=== PATIENT | male | born 1945 | race Caucasian/White ===

== ENCOUNTER 2019-06-15 19:52 | Inpatient (IN) | payer MEDICARE, OTHER, SELFPAY ==
[2019-06-15] VITALS (7 sets, daily range): BP systolic 122–136; BP diastolic 56–81; PULSE 50–63; RESP 12–17; TEMP 36.6; O2SAT 95–100
--- NOTE | ~2019-06-15 | XR_ITS ---
EXAMINATION: XR chest 1V portable DATE: 06/15/2019 20:26 INDICATION: Slurred speech. Cough. TECHNIQUE: A single frontal view of the chest was obtained. COMPARISON: Chest 2 views 08/19/2004, CT abdomen and pelvis 12/22/2009 FINDINGS: There is mild scarring at the lung apices. There are interstitial opacities in the lower tuyet ng zones. No pleural effusion or pneumothorax. The heart size is normal. Median sternotomy wires and mediastinal surgical clips are seen, likely from prior coronary artery bypass grafting. IMPRESSION: 1. Interstitial opacities in the lower lung zones, consistent with mild atelectasis versus mild pulmo nary edema. Reviewed, dictated and finalized at location A. IMPRESSION: 1. Interstitial opacities in the lower lung zones, consistent with mild atelect asis versus mild pulmonary edema.
--- NOTE | ~2019-06-15 | CT_ITS ---
EXAMINATION: CTA brain carotid DATE: 06/15/2019 21:27 INDICATION: Right facial weakness. Slurred speech. TECHNIQUE: Computed tomographic angiography (CTA) of the head was performed with 100 mL Omnipaque-350 intravenous contrast. CTA of the neck was performed with intravenous contrast. Automated exposure co ntrol and iterative reconstruction technique were employed. The dose-length product was 1217.09 mGy-c m. Maximum intensity projection and volume rendered 3D-reconstructions were created by the technologi st on a separate workstation. COMPARISON: Head CT 06/15/2019 FINDINGS: HEAD CTA: There are old lacunar infarcts in the bilateral basal ganglia. There is no intracranial hem orrhage, acute infarction, or abnormal intracranial mass lesion. The ventricles are normal in size. T he orbits are normal. There is mild mucosal thickening in the paranasal sinuses. The mastoid air cell s are normal. The vertebral arteries are codominant. There is mild stenosis of basilar artery. There is no significant stenosis of the posterior cerebral arteries. There is mild stenosis of the intracra nial internal carotid arteries. There is no significant stenosis of the anterior or middle cerebral a rteries. Anterior communicating artery is normal. The posterior communicating arteries are normal. Th ere is no aneurysm. NECK CTA: There is mild emphysema. There is mild scarring at the lung apices. There are no pathologic ally enlarged lymph nodes. There is mild stenosis of the vertebral arteries. There is plaque in the p roximal internal carotid arteries. There is 27% stenosis of the proximal right internal carotid arter y relative to normal distal artery lumen diameter (NASCET criteria). There is 0% stenosis of the prox imal left internal carotid artery relative to normal distal artery lumen diameter. There is severe ce rvical spondylosis. IMPRESSION: 1. Old lacunar infarcts in the bilateral basal ganglia. 2. No aneurysm or significant intracranial arterial stenosis. 3. 27% stenosis of the proximal right internal carotid artery relative to normal distal artery lumen diameter (NASCET criteria). 4. 0% stenosis of the proximal left internal carotid artery relative to normal distal artery lumen di ameter. Reviewed, dictated and finalized at location A. IMPRESSION: 1. Old lacunar infarcts in the bilateral basal ganglia. 2. No aneurysm or significant intracranial arterial stenosis. 3. 27% stenosis of the proximal right internal carotid artery relative to nora l distal artery lumen diameter (NASCET criteria). 4. 0% stenosis of the proximal left internal carotid artery relative to normal distal artery lumen diameter.
--- NOTE | ~2019-06-15 | XR_ITS ---
MODIFIED ESOPHAGRAM HISTORY: Dysphagia. TECHNIQUE: Modified barium esophagram was performed by speech pathologist under radiologist fluorosco pic guidance. This was recorded on tape. The exam was reviewed on 06/16/2019 13:56 CDT. The DAP for this procedure was 1.45 Gycm2. Fluoroscopy time is 2.3 minutes. FINDINGS: Lateral projection of the cervical spine demonstrates is normal. Oral stage is within nor mal limits. During pharyngeal stage there is laryngeal penetration with thin liquids with vallecular residue. No aspiration identified. There is normal esophageal stage.. IMPRESSION: 1: Laryngeal penetration with thin liquids without aspiration. 2: Please refer to speech pathologist report for additional detail. Reviewed, dictated and finalized at location A.
--- NOTE | ~2019-06-15 | CT_ITS ---
EXAMINATION: CT brain wo con DATE: 06/15/2019 20:00 INDICATION: Slurred speech. TECHNIQUE: Computed tomography (CT) of the head was performed without intravenous contrast. The mA wa s adjusted according to patient size. Iterative reconstruction technique was employed. The dose-lengt h product was 605.33 mGy-cm. COMPARISON: None FINDINGS: There are old lacunar infarcts in the bilateral basal ganglia. There is no intracranial hem orrhage, acute infarction, or abnormal intracranial mass lesion. There are scattered areas of low att enuation in the cerebral white matter, which is within normal limits for the patient's age. The ventr icles are normal in size. There is mild mucosal thickening in the paranasal sinuses. The mastoid air cells are normal. The orbits are normal. IMPRESSION: 1. Old lacunar infarcts in the bilateral basal ganglia. I called this result to Dr. Perez on 06/15/19 at 20:03. Reviewed, dictated and finalized at location A.
--- NOTE | 2019-06-15 19:54 | ECG_ITS ---
Measurements Intervals [place] Rate: 59 P: 71 [place]: 169 QRS: -7 QRSD: 114 T: -5 QT: 423 QTc: 419 Interpretive Statements SINUS BRADYCARDIA POSSIBLE LEFT VENTRICULAR HYPERTROPHY NONSPECIFIC ST & T-WAVE ABNORMALITY- INFERIOR LEADS BASELINE ARTIFACT- I, II, III, AVR, AVL, AVF, V3, V6 BORDERLINE ECG Electronically Signed On 06-16-2019 7:14:10 CDT by Huang Walsh D.O.
--- NOTE | 2019-06-15 20:07 | ED.NEUROSD ---
HPI - Neuro Symptoms/Deficit General Chief Complaint: Suspected CVA Stated Complaint: slurred speech difficulty swallowing R sided weak Time Seen by Provider: 06/15/19 19:55 Source: patient and EMS Mode of arrival: EMS Limitations: no limitations History of Present Illness HPI Narrative: A 73 y/o male has presented to the ED from [facility] due to a possible CVA. The pt's told EMS that she noticed symptoms started around 13:30. 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 The pt has no Hx of stroke, but he has had a OH and is taking blood thinners. Onset (ago): hour(s) (6) Time: 19:55 Last Observed Normal: 13:30 Timing confirmed by: spouse Location: right face (facial droop) and dysarthria History of same: No Quality: weak Associated symptoms: weakness (reduced diesel engine inspector strength bilaterally) and other (dysphagia) Related Data Home Medications Medication Instructions Recorded Confirmed amlodipine 06/15/19 carvedilol 06/15/19 clopidogrel 06/15/19 fenofibrate micronized mg PO 06/15/19 furosemide 06/15/19 ramipril mg 06/15/19 rosuvastatin mg 06/15/19 Allergies Allergy/AdvReac Type Severity Reaction Status Date / Time Aminoglycosides Allergy Severe RASH Verified 06/15/19 22:34 neomycin Allergy Severe RASH Verified 06/15/19 22:34 bacitracin Allergy Unknown Unknown Verified 06/15/19 22:34 polymyxin B Allergy Unknown Unknown Verified 06/15/19 22:34 POLYMYXINBSULF Allergy Severe RASH Uncoded 06/15/19 22:34 Review of Systems Review of Systems: All systems reviewed & are unremarkable except as noted in HPI and below Constitutional: Constitutional: Reports other (rt facial droop) ENT: Reports dysphagia Musculoskeletal: Musculoskeletal: Reports muscle weakness (reduced diesel engine inspector strength bilaterally) Neurologic: Reports other (dysarthria) [facility] Past Medical History Medical History (Updated 06/15/19 @ 22:59 by Maged Perez MD) Arthritis Basal cell carcinoma (BCC) on face removed in 2011 CAD (coronary artery disease) CHF (congestive heart failure) Cyst of right kidney DDD (degenerative disc disease) Enlarged prostate Farsightedness Foot fracture, left HTN (hypertension) Hypercholesteremia Left ear hearing loss Myocardial infarction Renal disease Surgical History Surgical History (Updated 06/15/19 @ 20:50 by Je Medeiros) H/O plastic surgery On ankle for infected dog bite History of cardiac cath History of open heart surgery Hx of CABG Family History Family History (Updated 06/15/19 @ 20:52 by Je Medeiros) Father Family history of coronary artery disease Mother Family history of coronary artery disease Diabetes mellitus Sibling Family history of malignant neoplasm of breast in first degree relative Sibling Diabetes mellitus Social History Social History Smoking status: Heavy tobacco smoker Alcohol intake: never Gender identity (if verbalized by the patient): Male Exam Const: General: no acute distress and well developed Nutritional Appearance: other (frail) Orientation/consciousness: patient oriented x3 (alert) and Other orientation findings (Alert) Limitations: no limitations Other: elderly HENMT: Head: normocephalic and atraumatic Ears: external ears normal General nose exam: No nasal discharge present and no epistaxis Face and sinus: face symmetric Mouth: Yes lip normal, Yes tongue normal and Yes moist mucous membranes Eyes: Conjunctivae: conjunctivae normal Sclera: sclerae normal EOM: EOMs intact bilaterally Neck: Neck: full ROM Resp: Effort & Inspection: normal respiratory effort Auscultation: clear to auscultation bilaterally, no rales, no rhonchi, no wheezes and other (breath sounds equal) Cardio: Rate: regular rate Rhythm: regular rhythm Heart sounds: no gallops and no murmurs GI: Inspection: non-distended Skin: General sk
[2019-06-15 20:26] LABS: Basophils Percent Auto 0.5 % (0.2-1.2); Eosinophils Absolute Auto 0.1 K/mm3 (0-0.3); Eosinophils Percent Auto 1.1 % (0-4.4); Hematocrit 41.1 % (42.0-52.0); Hemoglobin 13.8 g/dL (14.0-18.0); Immature Granulocyte Absolute 0.02 K/mm3 (0.00-0.031); Immature Granulocyte Percent A 0.3 % (0-0.5); Lymphocytes Absolute Auto 1.51 K/mm3 (0.9-3.2); Lymphocytes Percent Auto 24.6 % (18.3-44.2); Mean Corpuscular HGB Conc 33.6 g/dl (32-36); Mean Corpuscular Hemoglobin 32.9 pg (26-34); Mean Corpuscular Volume 97.9 fl (80-100); Mean Platelet Volume 10.4 fl (7.4-10.4); Monocytes Absolute Auto 0.6 K/mm3 (0.1-0.6); Monocytes Percent Auto 9.1 % (2.6-8.5); Neutrophils Absolute Auto 3.9 K/mm3 (1.3-6.7); Neutrophils Percent Auto 64.4 % (45.5-73.1); Platelet Count Result 211 k/mm3 (150-375); Red Cell Distribution Width 13.7 % (11.5-14.5); White Blood Count 6.1 K/mm3 (4.5-10.0)
[2019-06-15 20:35] LABS: Prothrombin Time 12.7 Seconds (11.1-14.7)
[2019-06-15 20:36] LABS: Partial Thromboplastin Time 28.2 SECONDS (22.3-36.8)
[2019-06-15 20:51] LABS: Blood Urea Nitrogen 19 mg/dL (9-20); Calcium 9.2 mg/dL (8.4-10.2); Carbon Dioxide 27 mmol/L (22-30); Chloride 104 mmol/L (98-107); Estimated Glomerular Filt Rate > 60; Glucose 149 mg/dL (75-110); Potassium 3.8 mmol/L (3.4-5.0); Sodium 136 mmol/L (137-145); Troponin I < 0.012 ng/mL (0.000-0.034)
[2019-06-15 21:18] LABS: Glucose Point of Care 156 (65-105)
[2019-06-16] VITALS (9 sets, daily range): BP systolic 111–162; BP diastolic 53–88; PULSE 46–66; RESP 14–18; TEMP 36.1–37.1; O2SAT 97–100; BMI 22.1
--- NOTE | 2019-06-16 00:24 | PC.NURSE ---
pt's and POA [phone]
[2019-06-16] MEDS: LACTATED RINGERS 1,000 ML 125 ML IV CONT ×2 (00:38→10:14)
--- NOTE | 2019-06-16 02:36 | ADMGEN ---
This patient, Porfiiro Pabon, was admitted to Medical Room 349-01. Patient/family oriented to hospital policies and general routines including ID bracelet, bed and alarms, visiting hours, pain management, procedures, bathroom and other care routines, personal items, smoking policy, room service/diet, and visiting hours. Valuables list has been completed. Information on how to activate the Rapid Response Team has been discussed. Patient/Family are encouraged to report perceived risks to care and to ask questions if they do not understand what they are told or what they should do.
--- NOTE | 2019-06-16 06:00 | ECHO_ITS ---
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 Complete two-dimensional, color flow and Doppler transthoracic echocardiogram is performed with agitated saline. Summary 1. Left ventricular chamber dimension is normal. 2. Definity contrast administered improved wall motion interpretation. 3. Left ventricular systolic function is normal, estimated at 55-60%. 4. There is mildly increased left ventricular wall thickness. 5. The left ventricular diastolic function is normal. 6. E/e' 8 is minimally elevated. 7. Global longitudinal strain is abnormal at -12.1%. 8. Left atrial chamber dimension is mildly enlarged. 9. There is mild aortic valve sclerosis. 10. There is mild to moderate mitral valve regurgitation. 11. There is moderate pulmonic regurgitation. 12. Small atheroma in posterior aortic root. 13. Dilated inferior vena cava with >50% collapse upon inspiration consistent with elevated right atrial pressure, 10 mmHg. Left Ventricle E/e' 8 is minimally elevated. Global longitudinal strain is abnormal at -12.1%. Definity contrast administered improved wall motion interpretation. Left ventricular chamber dimension is normal. Left ventricular systolic function is normal, estimated at 55-60%. There is mildly increased left ventricular wall thickness. The left ventricular diastolic function is normal. Right Ventricle Right ventricular chamber dimension is normal. Right ventricular systolic function is normal. Left Atria Left atrial chamber dimension is mildly enlarged. Right Atria Right atrial chamber dimension is normal. Atrial Septum Agitated saline injection performed opacified the right sided chambers without shunt to left sided chambers. Intact interatrial septum visualized by color flow and agitated saline imaging. Aortic Valve The aortic valve is trileaflet. There is mild aortic valve sclerosis. There is no aortic valve stenosis. There is no aortic valve regurgitation. Pulmonic Valve The pulmonic valve is not well visualized. There is moderate pulmonic regurgitation. Mitral Valve There is no mitral valve stenosis. There is mild to moderate mitral valve regurgitation. Tricuspid Valve There is no tricuspid valve regurgitation. Pericardium/Pleural There is no pericardial effusion. Inferior Vena Cava Dilated inferior vena cava with >50% collapse upon inspiration consistent with elevated right atrial pressure, 10 mmHg. Aorta Small atheroma in posterior aortic root. The aortic root size at the sinus of Valsalva is normal. Tricuspid Valve Name Value Normal
[2019-06-16] MEDS: ASPIRIN 81 MG CHEWABLE TABLET PO (08:40)
[2019-06-16] MEDS: AMLODIPINE BESYLATE 5 MG TABLET PO (08:40)
[2019-06-16] MEDS: FUROSEMIDE 20 MG TABLET PO (08:40)
[2019-06-16] MEDS: CLOPIDOGREL BISULFATE 75 MG TABLET PO (08:40)
[2019-06-16] MEDS: ROSUVASTATIN 10 MG TABLET 20 MG PO (08:41)
[2019-06-16] MEDS: ramipriL 5 MG CAPSULE 10 MG PO ×2 (08:41→17:13)
--- NOTE | 2019-06-16 09:02 | PM.IMHP ---
H&P: HPI History of Present Illness Chief complaint: Slurred speech, decreased right street light inspector strength Narrative: Porfirio Pabon is a 73 year old male with history of CAD (s/p CABG 2003), PVD per patient (stents b/l LE arteries per patient), CHF, and HTN among other comorbidities who presented to the ER on 06/14 via EMS with complaints of slurred speech and decreased right street light inspector strength. Patient states that he started noticing he had trouble gripping with his right hand at roughtly 1:00 pm yesterday afternoon. He decided to take a nap at roughly 3:00 pm and when he awoke, his symptoms had resolved. He then noticed at roughly 7:00 pm yesterday that his symptoms of decreased right street light inspector strength had returned, as well as muffled speech and his noticing right facial droop, at which point he decided to present to the ER for further evaluation and EMS was summoned. Patient denies having any similar symptoms in the past. He has been taking his medications as prescribed. He continues to smoke 1 ppd. He denies experiencing any other associated symptoms including, confusion, dysphagia, UE/LE weakness other than his right street light inspector strength, sudden vision loss, incoordination, difficulty ambulating. He notes that his symptoms including muffled speech, and street light inspector strength have improved overnight. He does note a cough that started 2 days ago that produces white phlegm; no associated fevers, arthralgias/myalgias, fatigue, or any other sick contacts at home or other; no recent travel. While in the ED, CTA of the brain showed old lacunar infarcts of b/l basal ganglia, no aneurysm or significant intracranial arterial stenosis, 27% stenosis of the proximal right internal carotid artery relative to normal distal artery lumen diameter (NASCET criteria), and 0% stenosis of the proximal left internal carotid artery relative to normal distal artery lumen diameter. Upon further questioning, he denies f/c/s, myalgias/arthralgias, headaches, dizziness, lightheadedness, changes in v/h, cp/palpitations, sob, n/v/d/c, abd pain, changes in BMs, dysuria, hematuria, cloudy urine, calf pain/swelling. Review of Systems Review of Systems: All systems reviewed & are unremarkable except as noted in HPI and below PMFSH Past Medical History Medical History Arthritis Basal cell carcinoma (BCC) on face removed in 2011 CAD (coronary artery disease) CHF (congestive heart failure) Cyst of right kidney DDD (degenerative disc disease) Enlarged prostate Farsightedness Foot fracture, left HTN (hypertension) Hypercholesteremia Left ear hearing loss Myocardial infarction Renal disease Surgical History Surgical History H/O plastic surgery On ankle for infected dog bite History of cardiac cath History of open heart surgery Hx of CABG Family History Family History Father Congestive heart failure Mother Diabetes mellitus Cerebrovascular accident Sibling Diabetes mellitus Sibling No problems noted. Social History Social History (Updated 06/16/19 @ 09:18 by Roland Moreau PA-C) Social History: Patient lives at home with his , Loan, whom he designates as his surrogate MDM. He wishes to be listed as a full code. His PCP is Dr. Kenny. Smoking packs per day: 1 Smoking cigarettes per day: 20.0 Years smoked: 50 Smoking pack-years: 50.00 Smoking status: Current every day smoker Tobacco type: cigarettes Alcohol intake: former Substance use: never Substance use type: does not use Gender identity (if verbalized by the patient): Male Spiritual care concerns: No Agree to blood products: Yes Meds Home Medications and Allergies Home Medications Medication Instructions Recorded Confirmed Type amlodipine 5 mg PO DAILY 06/15/19 06/16/19
[2019-06-16] MEDS: PERFLUTREN LIPID MICROSPHERES 1.5 ML VIAL DILUTED TO 10 ML TOTAL VOLUME IV PUSH (10:06)
[2019-06-16 10:52] LABS: Cholesterol 133 mg/dL (0-200); HDL Direct 33 mg/dL; Triglycerides 136 mg/dL (<150)
[2019-06-16 11:03] LABS: LDL Cholesterol Direct 84 mg/dL
[2019-06-16 12:02] LABS: Folic Acid 11.7 ng/mL (2.76->20)
--- NOTE | 2019-06-16 12:10 | CONS_ITS ---
DATE OF CONSULTATION: 06/15/2019 HISTORY OF PRESENT ILLNESS: This 73-year-old right-handed male has been admitted to [facility] through the emergency room for the complaints of decreased strength in the right hand grasp along with the slurred speech. In addition, he has ongoing history of: 1. Coronary artery disease for which the patient has undergone CABG in 2003. 2. PVD with stenting in the lower extremity arteries. 3. Congestive heart failure. 4. Hypertension. The patient presented to the ER via EMS on 06/14 for the complaint of slurred speech and decreased right final finisher strength. He started noticing the problem at roughly 10 p.m. Yesterday afternoon, he decided to take a nap at roughly 3 p.m. and when he woke up, his symptoms had resolved. He then noted around roughly 7 p.m. that his symptoms of decreased right final finisher strength had returned as well as muffled speech, and his noticed right facial droop. He decided to present to the ER for further evaluation and EMS were called at home. He has not had any symptoms in the past as such. He has been taking his medication regularly. He continued to smoke 1 pack of cigarettes per day. He gave no history of associated confusion, dysphagia, upper or lower extremity weakness other than the right hand final finisher. No history of sudden visual loss and coordination and difficulties in ambulating. By the time he came, his speech and final finisher strength was improving. He did have cough about 2 days ago, but no associated fever or generalized aches and pain. While in the emergency room, CTA of the brain revealed old lacunar infarct of both basal ganglia with no aneurysm. No significant intracranial arterial stenosis except 27% stenosis of proximal right internal carotid artery relative to distal normal artery lumen and 0% stenosis of proximal left ICA. He gave no history of any other generalized symptomatology. MEDICAL HISTORY: In the past, he has ongoing history of: 1. Arthritis. 2. Basal cell carcinoma of the face, removed in 2011. 3. Coronary artery disease. 4. Congestive heart failure. 5. Cyst of the right kidney. 6. Degenerative disk disease. 7. Enlarged prostate. 8. Far sightedness. 9. Foot fracture on the left side. 10. Hypertension. 11. Hypercholesterolemia. 12. Left ear hearing loss. 13. Myocardial infarction. 14. Renal disease. SURGICAL HISTORY: In addition to surgical history of plastic surgery, infected dog bite, cardiac catheterization, open-heart surgery and CABG. SOCIAL HISTORY: He lives at home with his . He carries the full code status with smoking pack years of 50, one-pack per day, currently every day smoker. Former alcohol intake, never substance abuse. MEDICATIONS: His home medications included: 1. Amlodipine 5 mg daily. 2. Carvedilol 25 mg twice a day. 3. Clopidogrel 75 mg daily. 4. Fenofibrate 130 at night. 5. Furosemide 20 mg daily. 6. Ramipril 10 mg twice a day. 7. Rosuvastatin 20 mg daily. ALLERGIES: HE IS ALLERGIC TO MULTIPLE MEDICATIONS SUCH AMINOGLYCOSIDES, NEOMYCIN, BACITRACIN, POLYMYXIN B, POLYMYXIN B SULFATE. PHYSICAL EXAMINATION: VITAL SIGNS: Evaluation up until now documented him to be afebrile, normotensive with pulse ox of 99. HEENT: Head is normocephalic with no cranial bruits. Ears, nose, throat examination normal. NECK: Supple with no cervical bruits. No thyromegaly. No lymphadenopathy. HEART: Regular with no murmur. LUNGS: Clear to auscultation with no crepitation with occasional rhonchi. ABDOMEN: Soft with normal bowel sounds. SKIN: Normal. NEUROLOGICAL: He is awake, alert, oriented x3. Pupils are round, regular. Jain of vision full. Extraocular movements full. Face symmetrical. Tongue midline. Motor examination revealed him to
--- NOTE | 2019-06-16 13:06 | PCSTNOTE ---
Please refer to the Bedside Swallow Evaluation in the EMR.
--- NOTE | 2019-06-16 14:04 | PCSTNOTE ---
Please refer to the Modified Barium Swallow Evaluation in the EMR.
--- NOTE | 2019-06-16 15:15 | PM.CNCAR ---
Assessment and Plan Additional Plan 73-year-old gentleman coronary artery disease, previous PCI who is very stable clinically. Unfortunately he has continued to smoke and now presents with a CVA and has slurred speech following the event but otherwise is very stable. Asymptomatic sinus bradycardia as noted above. I would recommend reducing the carvedilol dosage to 12.5 mg q.12 hours. I would not stop the drug altogether nor when I hold it for asymptomatic bradycardia at this time there is no compelling cardiac reason he needs to be hospitalized when he is ready for discharge from with respect to this CVA we have no problem with that. Darius Solorzano MD [facility] History of Present Illness History of Present Illness Consult date/time: Date of service:06/16/19 15:15 Reason For Visit: Slurred speech, decreased right retail helper strength Narrative: This is a pleasant 73-year-old man with coronary artery disease who follows with Dr. Herman of our practice. The patient has a history of previous ID and PCI with from what I understand normal residual left ventricular function and he is doing quite well with respect to his coronary artery disease. He has no history of valvular heart disease or arrhythmias specifically has no history of atrial fibrillation. His last appointment in the office was about 5 months ago and he was doing well at that time. He was hospitalized here yesterday with neurological symptoms and evidence of a CVA. He apparently had some rightupper extremity weakness and slurring of his speech which had its onset yesterday. Apparently he had symptoms transient symptoms the day before as well that resolved and presumably because of issues not felt to be a candidate for thrombolytics therapy. He was admitted to the hospital his telemetry strips have demonstrated sinus rhythm but at times he has sinus bradycardia with heart rates in the 40 beat per minute range and sleeping in the high 30s. This prompted consultation today. He has no history of syncope or near-syncope. His usual state of health he is maintaining good activity levels and denies any symptoms that sound like ischemic chest pain. Because of the bradycardia his morning dose of carvedilol has been held today he normally takes 25 mg b.i.d.. The remainder of his medical regimen consists of amlodipine, ramipril, clopidogrel and rosuvastatin. He again has never had any syncopal or presyncopal episodes. Review of Systems Constitutional: Constitutional: Reports no additional constitutional complaints Eyes: Eyes: Reports no additional eye complaints ENT: Reports system reviewed and no additional complaints, except as documented Cardiovascular: Cardiovascular: Reports no additional cardiovascular complaints Respiratory: Respiratory: Reports no additional respiratory complaints Gastrointestinal: Gastrointestinal: Reports no additional gastrointestinal complaints Musculoskeletal: Musculoskeletal: Reports no additional musculoskeletal complaints Integumentary/Breasts: Skin/Breast: Reports system reviewed and no additional complaints, except as docu Neurologic: Reports system reviewed and no additional complaints, except as documented Hematologic/Lymphatic: Hematologic/Lymphatic: Reports no additional hematologic/lymphatic complaints Allergic/Immunologic: Allergic/Immunologic: Reports no additional allergic/immunologic complaints [facility] Past Medical History Medical History Arthritis Basal cell carcinoma (BCC) on face removed in 2011 CAD (coronary artery disease) CHF (congestive heart failure) Cyst of right kidney DDD (degenerative disc disease) Enlarged prostate Farsightedness Foot fracture, left HTN (hypertension) Hypercholesteremia Left ear hearing loss Myocardial infarction Renal disease Surgical History Surgical History H/O plastic surgery On ank
--- NOTE | 2019-06-16 15:53 | P.DS_ITS ---
DS: Diagnosis Admitting Diagnosis Admitting Diagnosis: Dysarthria and anarthria Discharge Diagnosis (1) Dysarthria: Code(s): R47.1 - Dysarthria and anarthria Status: Acute Assessment and Plan: Along with decreased burial vault setter strength; possible TIA vs possible CVA not seen on CT imaging. CT of head shows old infarcts, but nothing acute. Cutter Wet Machine strength appears to have returned to baseline. Patient still experiencing dysarthria, but states this is improving. He denies any dysphagia. MRI unable to be completed at this time due to stents placed and uncertain of if MRI compatible. Dr. Lian sevilla patient for discharge with follow up in 4 weeks for possible further imaging. ST eval today which recommended regular diet. PT/OT no therapy recommended * Neurology has been consulted and appreciate input * Neurology recommended aspirin and plavix at this moment with statin (2) Decreased burial vault setter strength of right hand: Code(s): R29.898 - Other symptoms and signs involving the musculoskeletal system Status: Acute Assessment and Plan: Please see above a/p. Improved. (3) Cerebrovascular accident, old: Code(s): Z86.73 - Personal history of transient ischemic attack (TIA), and cerebral infarction without residual deficits Status: Acute Assessment and Plan: Noted on CT imaging while in ER. * Further recommendations per Neurology (4) Bradycardia: Code(s): R00.1 - Bradycardia, unspecified Status: Acute Assessment and Plan: Noted on Telemetry overnight; asymptomatic. Appears to be sinus rhythm. Now in appears to be in NSR with rate in 60s this morning. 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 Bradycardic on telemetry overnight * Cardiology has been consulted and appreciate input * further management per Cardiology (6) CHF (congestive heart failure): Code(s): I50.9 - Heart failure, unspecified Status: Acute Assessment and Plan: Appears to be well compensated at this time * Continue home lasix * Monitor (7) HTN (hypertension): Code(s): I10 - Essential (primary) hypertension Status: Acute Assessment and Plan: BP 110s sys this morning * Cardiology consulted and appreciate input * carvedilol 12.5 mg BID at discharge; continue other home meds at this time * Further management per Cardiology (8) Hypercholesteremia: Code(s): E78.00 - Pure hypercholesterolemia, unspecified Status: Acute Assessment and Plan: * Continue home rosuvastatin (9) Tobacco abuse disorder: Code(s): Z72.0 - Tobacco use Status: Acute Assessment and Plan: Smoking cessation encouraged for 3 minutes. Likely etiology for cough * Patient refused nicotine patch at this time. Provide nicotine if needed DS: Summary Hospital Course Reason for hospitalization: Dysarthria;
--- NOTE | 2019-06-16 15:53 | PM.DS ---
DS: Diagnosis Admitting Diagnosis Admitting Diagnosis: Dysarthria and anarthria Discharge Diagnosis (1) Dysarthria: Code(s): R47.1 - Dysarthria and anarthria Status: Acute Assessment and Plan: Along with decreased wick tender strength; possible TIA vs possible CVA not seen on CT imaging. CT of head shows old infarcts, but nothing acute. Customs Inspector strength appears to have returned to baseline. Patient still experiencing dysarthria, but states this is improving. He denies any dysphagia. MRI unable to be completed at this time due to stents placed and uncertain of if MRI compatible. Dr. Lian sevilla patient for discharge with follow up in 4 weeks for possible further imaging. ST eval today which recommended regular diet. PT/OT no therapy recommended Neurology has been consulted and appreciate input Neurology recommended aspirin and plavix at this moment with statin (2) Decreased wick tender strength of right hand: Code(s): R29.898 - Other symptoms and signs involving the musculoskeletal system Status: Acute Assessment and Plan: Please see above a/p. Improved. (3) Cerebrovascular accident, old: Code(s): Z86.73 - Personal history of transient ischemic attack (TIA), and cerebral infarction without residual deficits Status: Acute Assessment and Plan: Noted on CT imaging while in ER. Further recommendations per Neurology (4) Bradycardia: Code(s): R00.1 - Bradycardia, unspecified Status: Acute Assessment and Plan: Noted on Telemetry overnight; asymptomatic. Appears to be sinus rhythm. Now in appears to be in NSR with rate in 60s this morning. 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 Herman as his Gas Pump Attendant Consult Cardiology for further input on medical management; input is greatly appreciated Will do 12.5 mg Carvedilol BID per cardiology recommendations Monitor (5) CAD (coronary artery disease): Code(s): I25.10 - Atherosclerotic heart disease of [place] coronary artery without angina pectoris Status: Acute Assessment and Plan: Asymptomatic; no cp/palpitations. Bradycardic on telemetry overnight Cardiology has been consulted and appreciate input further management per Cardiology (6) CHF (congestive heart failure): Code(s): I50.9 - Heart failure, unspecified Status: Acute Assessment and Plan: Appears to be well compensated at this time Continue home lasix Monitor (7) HTN (hypertension): Code(s): I10 - Essential (primary) hypertension Status: Acute Assessment and Plan: BP 110s sys this morning Cardiology consulted and appreciate input carvedilol 12.5 mg BID at discharge; continue other home meds at this time Further management per Cardiology (8) Hypercholesteremia: Code(s): E78.00 - Pure hypercholesterolemia, unspecified Status: Acute Assessment and Plan: Continue home rosuvastatin (9) Tobacco abuse disorder: Code(s): Z72.0 - Tobacco use Status: Acute Assessment and Plan: Smoking cessation encouraged for 3 minutes. Likely etiology for cough Patient refused nicotine patch at this time. Provide nicotine if needed DS: Summary Hospital Course Reason for hospitalization: Dysarthria; r/o stroke Hospital Course: Patient is a 73 year old male with history of CAD (s/p CABG 2003), PVD per patient (stents b/l LE arteries per patient), CHF, and HTN among other comorbidities who presented to the ER on 06/14 via EMS with complaints of slurred speech and decreased right wick tender strength. Patient started having right decreased wick tender strength around 1:00 pm on 06/14; he took a nap around
[2019-06-16] MEDS: CYANOCOBALAMIN INJ 1,000 MCG/ML VIAL 1000 MCG IM (17:25)
== END 2019-06-16 18:39 | disposition home or self-care (01) | DRG 65 ==
LOC: ANHED 23:26 → ANH3MED 06-16 07:00
PROVIDERS: Physician Assistant; Admitting Provider Internal Medicine; Emergency Provider Emergency Medicine; PCP Family Medicine; Visit Provider Internal Medicine
DX: I63.9 Cerebral infarction, unspecified (principal); G45.9 Transient cerebral ischemic attack, unspecified; R47.1 Dysarthria and anarthria; R47.81 Slurred speech; R29.810 Facial weakness; R29.898 Other symptoms and signs involving the musculoskeletal system; E78.00 Pure hypercholesterolemia, unspecified; R00.1 Bradycardia, unspecified; I25.10 Atherosclerotic heart disease of native coronary artery without angina pectoris; I11.0 Hypertensive heart disease with heart failure; I50.9 Heart failure, unspecified; F17.210 Nicotine dependence, cigarettes, uncomplicated; M19.90 Unspecified osteoarthritis, unspecified site; I73.9 Peripheral vascular disease, unspecified; N28.1 Cyst of kidney, acquired; R29.703 NIHSS score 3; Z86.73 Personal history of transient ischemic attack (TIA), and cerebral infarction without residual deficits; Z95.1 Presence of aortocoronary bypass graft; Z85.828 Personal history of other malignant neoplasm of skin; I25.2 Old myocardial infarction
CPT/HCPCS: 36415; 70450; 70496; 70498; 71045; 80048; 80061; 82607; 82746; 82948; 84484; 85025; 85610; 85730; 92610; 92611; 93005; 96375; 97161; 97165; 99285; A9270; C8929; J3420; J7120; Q9957; Q9967

== ENCOUNTER 2019-06-19 14:03 | Outpatient (CLI) | payer MEDICARE, OTHER, SELFPAY ==
--- NOTE | ~2019-06-19 | XR_ITS ---
EXAMINATION: XR chest 2V DATE: 06/19/2019 14:25 INDICATION: Cough and abnormal lung sounds TECHNIQUE: Frontal and lateral views of the chest are obtained COMPARISON: 06/15/2019 FINDINGS: Bibasilar airspace opacities persist with slight improvement on the left and no change on t he right. There is no pleural effusion or pneumothorax. The cardiomediastinal silhouette is normal. T here is moderate thoracic spondylosis. Which Median sternotomy wires and mediastinal surgical clips a re seen, likely from prior coronary artery bypass grafting. Enteric contrast material is noted in the colon from recent modified barium swallow. IMPRESSION: 1. Bibasilar airspace opacities with slight improvement on the left, consistent with atelectasis vers us pneumonia. Reviewed, dictated and finalized at location B. IMPRESSION: 1. Bibasilar airspace opacities with slight improvement on the left, consistent with atelectasis versus pneumonia.
== END 2019-06-19 14:04 | disposition home or self-care (01) ==
LOC: ANHLAB 14:06
PROVIDERS: PCP Family Medicine; Visit Provider Physician Assistant
DX: R05 Cough (principal); R91.8 Other nonspecific abnormal finding of lung field
CPT/HCPCS: 71046

== ENCOUNTER → 2019-06-30 14:09 | Outpatient (CLI) | payer MEDICARE, OTHER, SELFPAY ==
--- NOTE | ~2019-06-30 | XR_ITS ---
XR chest 2V DATE: 06/30/2019 14:49 INDICATION: Cough, shortness of breath. Pneumonia. TECHNIQUE: 2 views COMPARISON: 06/19/2019 2 view chest FINDINGS: Status post sternotomy/coronary artery bypass graft surgery. Heart size is within normal li mits. No hilar or mediastinal enlargement is evident. There is mild infiltrate or atelectasis at one or both posterior lung bases. No pulmonary infiltrate or consolidation, pleural effusion or pulmonary vascular congestion or pneumothorax is evident otherw ise. Diffuse idiopathic skeletal hyperostosis of the thoracic spine. Osteopenia. IMPRESSION: Mild infiltrate or atelectasis at one or both posterior lung bases; otherwise no active p ulmonary disease Status post sternotomy/CABG Reviewed, dictated and finalized at location A. IMPRESSION: Mild infiltrate or atelectasis at one or both posterior lung bases; otherwise no active pulmonary disease Status post sternotomy/CABG
== END ==
PROVIDERS: PCP Family Medicine; Visit Provider Family Medicine
DX: J18.9 Pneumonia, unspecified organism (principal); R91.8 Other nonspecific abnormal finding of lung field; Z95.1 Presence of aortocoronary bypass graft
CPT/HCPCS: 71046

== ENCOUNTER 2019-11-20 07:59 | Outpatient (CLI) | payer MEDICARE, OTHER, SELFPAY ==
--- NOTE | ~2019-11-20 | US_ITS ---
EXAMINATION: US aorta EXAM DATE: 11/20/2019 09:32 INDICATION: Peripheral arterial disease. Abdominal aortic aneurysm. Hypertension. TECHNIQUE: Multiple grayscale and Doppler images of the aorta were obtained (by a technologist who pe rformed the scan) and subsequently reviewed. Comparison is made to prior examination from 07/01/2017. FINDINGS: The abdominal aorta measures 3.2 x 2.9 cm proximally, 3.6 x 3.5 cm mid aspect, 2.0 x 2.4 cm distally. These are smaller than measurements on prior study but those may have been slightly overestimated. A ppearance is unchanged accounting for differences in technologist acquisition. Evidence of mild abdom inal aortic ectasia and atherosclerosis. IMPRESSION: 1. Mildly aneurysmal mid abdominal aorta unchanged up to about 3.5 cm. Reviewed, dictated and finalized at location A.
--- NOTE | ~2019-11-20 | US_ITS ---
EXAMINATION: US art doppler w press LE BI DATE: 11/20/2019 09:33 INDICATION: Peripheral arterial occlusive disease. TECHNIQUE: Segmental pressures and plethysmographic and Doppler waveforms of the brachial and lower e xtremity arteries were obtained. COMPARISON: None. FINDINGS: Right and left brachial artery pressures of 128 mm Hg and 136 mm Hg, respectively, are concordant (no rmal difference <= 30 mmHg). The right and left high-thigh pressure indices were unable to be obtaine d due to inability to occlude the vessels at the left and right thighs. The right ankle-brachial index (FREDERIC) is 1.13 (normal >= 0.9-1). The right great toe-brachial index (T BI) is 0.95 (normal >= 0.6-0.8). The right lower extremity segmental pressure gradients are increased between the right dorsalis pedis artery and the right posterior tibial and [id number] popliteal arteries (normal gradients <= 20-30 mmHg between adjacent levels on the same leg or the same levels o n the two legs). Arterial waveforms are biphasic with brisk systolic upstrokes throughout the right l ower limb. The left FREDERIC is 0.90. The left TBI is 0.53. The left lower extremity segmental pressure gradients are increased between the left dorsalis pedis artery and the left posterior tibial artery and contralate ral right dorsalis pedis artery. Arterial waveforms are biphasic with brisk systolic upstrokes throug hout. IMPRESSION: 1. Mild arterial occlusive disease to the left lower limb with borderline left FREDERIC and mildly decreas ed left TBI. 2. No significant arterial occlusive disease to the right lower limb with normal right FREDERIC and TBI. Reviewed, dictated and finalized at location A. IMPRESSION: 1. Mild arterial occlusive disease to the left lower limb with borderline left FREDERIC and mildly decreased left TBI. 2. No significant arterial occlusive disease to the right lower limb with nora l right FREDERIC and TBI.
== END 2019-11-20 08:00 | disposition home or self-care (01) ==
PROVIDERS: PCP Family Medicine; Visit Provider Internal Medicine Cardiovascular Disease
DX: I71.4 Abdominal aortic aneurysm, without rupture (principal); I73.9 Peripheral vascular disease, unspecified
CPT/HCPCS: 76775; 93923

== ENCOUNTER 2020-01-09 00:25 | Outpatient (CLI) | payer MEDICARE, OTHER, SELFPAY ==
[2020-01-09 17:37] LABS: SARS-CoV-2 RNA PCR Negative
== END 2020-01-09 00:26 | disposition home or self-care (01) ==
LOC: ANHCOVIDDT 00:26
PROVIDERS: PCP Family Medicine; Visit Provider Urology
DX: Z01.812 Encounter for preprocedural laboratory examination (principal); Z20.828 Contact with and (suspected) exposure to other viral communicable diseases
CPT/HCPCS: 87635; C9803; U0003

== ENCOUNTER 2020-01-09 09:13 | Outpatient (CLI) | payer MEDICARE, OTHER, SELFPAY ==
[2020-01-09 09:46] LABS: Basophils Absolute Auto 0.1 K/mm3 (0.0-0.1); Basophils Percent Auto 0.7 % (0.2-1.2); Eosinophils Absolute Auto 0.1 K/mm3 (0-0.3); Eosinophils Percent Auto 1.3 % (0-4.4); Hematocrit 43.9 % (42.0-52.0); Hemoglobin 14.9 g/dL (14.0-18.0); Immature Granulocyte Absolute 0.02 K/mm3 (0.00-0.031); Immature Granulocyte Percent A 0.3 % (0-0.5); Lymphocytes Absolute Auto 1.87 K/mm3 (0.9-3.2); Lymphocytes Percent Auto 27.1 % (18.3-44.2); Mean Corpuscular HGB Conc 33.9 g/dl (32-36); Mean Corpuscular Hemoglobin 32.8 pg (26-34); Mean Corpuscular Volume 96.7 fl (80-100); Mean Platelet Volume 9.9 fl (7.4-10.4); Monocytes Absolute Auto 0.7 K/mm3 (0.1-0.6); Monocytes Percent Auto 9.6 % (2.6-8.5); Neutrophils Absolute Auto 4.2 K/mm3 (1.3-6.7); Platelet Count Result 173 k/mm3 (150-375); Red Blood Count 4.54 M/mm3 (4.6-6.20); Red Cell Distribution Width 13.8 % (11.5-14.5); White Blood Count 6.9 K/mm3 (4.5-10.0)
[2020-01-09 09:58] LABS: INR 1.1; Prothrombin Time 13.8 Seconds (11.1-14.7)
[2020-01-09 09:59] LABS: Partial Thromboplastin Time 29.1 SECONDS (22.3-36.8)
[2020-01-09 10:02] LABS: Anion Gap 3 mmol/L (8-16); Blood Urea Nitrogen 19 mg/dL (9-20); Calcium 9.3 mg/dL (8.4-10.2); Carbon Dioxide 31 mmol/L (22-30); Chloride 106 mmol/L (98-107); Estimated Glomerular Filt Rate > 60; Glucose 145 mg/dL (75-110); Potassium 3.8 mmol/L (3.4-5.0); Sodium 140 mmol/L (137-145)
== END 2020-01-09 09:14 | disposition home or self-care (01) ==
PROVIDERS: PCP Family Medicine; Visit Provider Urology
DX: D49.4 Neoplasm of unspecified behavior of bladder (principal)
CPT/HCPCS: 36415; 80048; 85025; 85610; 85730; 87635; C9803; U0003

== ENCOUNTER 2020-01-12 00:45 | Day surgery (SDC) | payer MEDICARE, OTHER, SELFPAY ==
[2020-01-05 10:38] VITALS: BMI 21.3
[2020-01-12] VITALS (8 sets, daily range): BP systolic 91–160; BP diastolic 46–72; PULSE 48–65; RESP 12–20; TEMP 36.2; O2SAT 96–100
[2020-01-12] MEDS: LACTATED RINGERS 1,000 ML 30 ML IV CONT (11:05)
--- NOTE | 2020-01-12 12:01 | WPDHPUPDATE1 ---
History and Physical Update Update Date/Time: 01/12/20 12:01 History and Physical has been reviewed, including an updated exam of the patient. There are NO changes in the patient's condition. Risks, benefits, and alternatives have been discussed and questions answered. Patient agrees to proceed with procedure. Proceed wtih turbt
--- NOTE | 2020-01-12 12:26 | WPDANESEPPF ---
Anes - Initial Pre Proc Eval Procedure: Operation Date: 01/12/20 12:30 Proposed Procedures p Trans Urethral Resection Bladder Tumor - Jasen Whalen MD Date/Time: 01/12/20 12:26 Surgeon: Jasen Whalen MD Pre Op Diagnosis: Bladder Lesion N 32.9 Patient Data Age: 74 Gender: M Height: 6 ft Weight: 69.3 kg Last Vital Signs Temp 36.2 C L 01/12/20 10:46 Pulse 48 L 01/12/20 10:46 Resp 20 01/12/20 10:46 BP 111/56 L 01/12/20 10:46 Pulse Ox 100 01/12/20 10:46 Allergies Allergy/AdvReac Type Severity Reaction Status Date / Time Aminoglycosides Allergy Severe RASH Verified 01/05/20 10:23 bacitracin Allergy Severe Rash Verified 01/12/20 10:47 neomycin Allergy Severe RASH Verified 01/05/20 10:23 polymyxin B Allergy Severe Rash Verified 01/12/20 10:47 POLYMYXINBSULF Allergy Severe RASH Uncoded 01/05/20 10:23 Home Medications Medication Instructions Recorded Confirmed Type amlodipine 5 mg PO DAILY 06/15/19 01/12/20 History clopidogrel 75 mg PO DAILY 06/15/19 01/12/20 History ramipril 10 mg PO BID 06/15/19 01/12/20 History rosuvastatin 40 mg PO DAILY 06/15/19 01/12/20 History aspirin [Adult Low Dose Aspirin] 81 mg PO DAILY #30 tablet 06/16/19 01/12/20 Rx carvedilol 12.5 mg PO BID #30 tablet 06/16/19 01/12/20 Rx Patient hx anesthesia problems: none Family hx anesthesia problems: none PMFSH Past Medical History Medical History Arthritis Basal cell carcinoma (BCC) on face removed in 2011 CAD (coronary artery disease) CHF (congestive heart failure) Cough CVA (cerebral vascular accident) Cyst of right kidney DDD (degenerative disc disease) Enlarged prostate Farsightedness Foot fracture, left History of stroke with current residual effects HTN (hypertension) Hypercholesteremia Left ear hearing loss Myocardial infarction Renal disease Surgical History Surgical History H/O plastic surgery On ankle for infected dog bite History of cardiac cath History of open heart surgery Hx of CABG Family History Family History Father Congestive heart failure Mother Diabetes mellitus Cerebrovascular accident Sibling Diabetes mellitus Sibling No problems noted. Social History Social History Social History: Patient lives at home with his , Loan, whom he designates as his surrogate MDM. He wishes to be listed as a full code. His PCP is Dr. Kenny. Smoking packs per day: 1 Smoking cigarettes per day: 20.0 Years smoked: 50 Smoking pack-years: 50.00 Smoking status: Current every day smoker Tobacco type: cigarettes Second hand tobacco smoke exposure: Yes Additional smoking assessment comments: STATES SMOKES 8 CIGARETTES/DAY/50+YRS Alcohol intake: never Substance use: never Substance use type: does not use Living arrangements: with family Gender identity (if verbalized by the patient): Male Spiritual care concerns: No Agree to blood products: Yes Anes - Eval Final PreProcedure Day of Procedure 01/12/20 12:26 Patient weight: normal Heart: regular rate and rhythm Lungs: clear to auscultation Airway: Mallampati scale class II Neurological: alert and oriented Last oral intake: >/= 8 hours ASA classification: IV Emergent: no Anesthetic plan: proceed Anesthesia type and monitoring: general LMA and standard monitoring Informed Consent: The patient's anesthetic plan and its attendant risks and benefits were discussed with the patient/family/POA. Questions were solicited and answers provided to the satisfaction of the patient/family/POA.
[2020-01-12] MEDS: ceFAZolin 2 GM/D5W 50 ML 2 GM/50 ML BAG IVPB (13:11)
[2020-01-12] MEDS: LIDOCAINE HCL 2% GEL UROJET 10 ML PKG MUCOUS MEM (13:32)
--- NOTE | 2020-01-12 13:32 | PM.PROC ---
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 Once anesthesia was obtained he was placed in dorsal lithotomy position and prepped and draped usual sterile fashion. Twenty-four Turkish resectoscope sheath inserted in the bladder. The tumor was noted on the floor on the left measuring approximately 1 cm. We resected this and sent for analysis. The base was fulgurated. Patient tolerated procedure well without any complications taken recovery stable condition. 1% viscous lidocaine was inserted urethra. He does have lateral lobe hypertrophy without a median lobe. He would be a candidate for UroLift. Anesthesia: GLMA Surgeon: Jasen Whalen MD Drains: No Packing: No Pathology: yes Complications: No immediate complications Condition: stable Disposition: PACU
--- NOTE | 2020-01-12 15:17 | SUR.PHASEII ---
1510 - pt made 2 attempts to urinate. unable to void. dr. lanza aware. 1515 - bladder scanned with 400 mls of urine noted. dr. lanza called on order to insert shannon catheter 1520 - pt ambulated to bathroom to attempt to urinate. updated on pt's status
--- NOTE | 2020-01-12 15:43 | SUR.PHASEII ---
1535 - 16F shannon catheter inserted and pt gwendolyn well. 375 mls of pink urine noted.
== END 2020-01-12 15:55 | disposition home or self-care (01) ==
PROVIDERS: PCP Family Medicine; Visit Provider Urology
PROC: 0TBB8ZZ Excision of Bladder, Via Natural or Artificial Opening Endoscopic (ICD-10-PCS; CPT 52234; principal; 2020-01-12 12:30)
DX: C67.0 Malignant neoplasm of trigone of bladder (principal); N40.0 Benign prostatic hyperplasia without lower urinary tract symptoms; I11.0 Hypertensive heart disease with heart failure; I50.9 Heart failure, unspecified; I25.10 Atherosclerotic heart disease of native coronary artery without angina pectoris; E78.00 Pure hypercholesterolemia, unspecified; I25.2 Old myocardial infarction; Z86.73 Personal history of transient ischemic attack (TIA), and cerebral infarction without residual deficits; Z79.02 Long term (current) use of antithrombotics/antiplatelets; Z79.82 Long term (current) use of aspirin; Z95.1 Presence of aortocoronary bypass graft; F17.210 Nicotine dependence, cigarettes, uncomplicated
CPT/HCPCS: 52234; 88305; A9270; J0690; J2405; J2704; J3010; J7120

== ENCOUNTER 2020-01-15 04:56 | Emergency (ER) | payer MEDICARE, OTHER, SELFPAY ==
[2020-01-15 04:56] VITALS: BP 175/83; PULSE 65; RESP 16; TEMP 37; O2SAT 100
--- NOTE | 2020-01-15 05:05 | ED.MALEGU ---
HPI - Male Genitourinary General Chief complaint: Urogenital-Male Stated complaint: UNABLE TO URINATE Time Seen by Provider: 01/15/20 05:04 History of Present Illness HPI Narrative: 74 yo male presents from home for urinary retention. 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 His Da Silva catheter was removed yesterday. He now has a sensation that he needs to urinate, but he has not been able to urinate since that time. He does not have any pain. Related Data Home Medications Medication Instructions Recorded Confirmed amlodipine 5 mg PO DAILY 06/15/19 01/12/20 clopidogrel 75 mg PO DAILY 06/15/19 01/12/20 ramipril 10 mg PO BID 06/15/19 01/12/20 rosuvastatin 40 mg PO DAILY 06/15/19 01/12/20 Allergies Allergy/AdvReac Type Severity Reaction Status Date / Time Aminoglycosides Allergy Severe RASH Verified 01/05/20 10:23 bacitracin Allergy Severe Rash Verified 01/12/20 10:47 neomycin Allergy Severe RASH Verified 01/05/20 10:23 polymyxin B Allergy Severe Rash Verified 01/12/20 10:47 POLYMYXINBSULF Allergy Severe RASH Uncoded 01/05/20 10:23 Review of Systems Review of Systems: All systems reviewed & are unremarkable except as noted in HPI and below Constitutional: Constitutional: Denies chills and Denies fever(s) Cardiovascular: Cardiovascular: Denies chest pain Respiratory: Respiratory: Denies dyspnea Gastrointestinal: Gastrointestinal: Denies abdominal pain, Denies nausea and Denies vomiting Genitourinary: Genitourinary: Denies hematuria, Reports oliguria and Denies dysuria Musculoskeletal: Musculoskeletal: Denies back pain Neurologic: Denies numbness and Denies weakness [facility] Past Medical History Medical History Arthritis Basal cell carcinoma (BCC) on face removed in 2011 CAD (coronary artery disease) CHF (congestive heart failure) Cough CVA (cerebral vascular accident) Cyst of right kidney DDD (degenerative disc disease) Enlarged prostate Farsightedness Foot fracture, left History of stroke with current residual effects HTN (hypertension) Hypercholesteremia Left ear hearing loss Myocardial infarction Renal disease Surgical History Surgical History H/O plastic surgery On ankle for infected dog bite History of cardiac cath History of open heart surgery Hx of CABG Family History Family History Father Congestive heart failure Mother Diabetes mellitus Cerebrovascular accident Sibling Diabetes mellitus Sibling No problems noted. Social History Social History Social History: Patient lives at home with his , Loan, whom he designates as his surrogate MDM. He wishes to be listed as a full code. His PCP is Dr. Kenny. Smoking packs per day: 1 Smoking cigarettes per day: 20.0 Years smoked: 50 Smoking pack-years: 50.00 Smoking status: Current every day smoker Tobacco type: cigarettes Second hand tobacco smoke exposure: Yes Additional smoking assessment comments: STATES SMOKES 8 CIGARETTES/DAY/50+YRS Alcohol intake: never Substance use: never Substance use type: does not use Gender identity (if verbalized by the patient): Male Spiritual care concerns: No Agree to blood products: Yes Exam Const: General: no acute distress and alert Nutritional Appearance: well nourished Orientation/consciousness: patient oriented x3 HENMT: Head: normal to inspection Resp: Effort & Inspection: normal respiratory effort Auscultation: clear to auscultation bilaterally Cardio: Rate: regular rate Rhythm: regular rhythm GI: Inspection: non-distended GI Palp: Yes Soft to palpation and No Tenderness to palpation present (GI) Skin: General skin exam: normal color Neuro: General: arvin
[2020-01-15 05:52] LABS: Add Urine Microscopic? YES; Appearance Urine Clear (Clear); Bilirubin Urine Negative (Negative); Blood Urine 2+ (Negative); Color Urine Yellow (Yellow); Glucose Urine UA Negative (Negative); Ketones Urine Negative (Negative); Leukocyte Esterase Ur Negative LEU/UL (Negative); Mucus Urine Rare /lpf; Nitrate Urine Negative (Negative); Protein Urine Negative (Negative); RBC Urine 21-50 /hpf (0-2); Specific Grav Ur 1.011 (1.001-1.035); Urobilinogen Urine Negative mg/dL (<2.0); WBC Urine 0-3 /hpf
== END 2020-01-15 06:11 | disposition home or self-care (01) ==
PROVIDERS: Emergency Provider Emergency Medicine; PCP Family Medicine
DX: N40.1 Benign prostatic hyperplasia with lower urinary tract symptoms (principal); R33.8 Other retention of urine; M19.90 Unspecified osteoarthritis, unspecified site; Z85.828 Personal history of other malignant neoplasm of skin; I25.10 Atherosclerotic heart disease of native coronary artery without angina pectoris; I50.9 Heart failure, unspecified; I11.0 Hypertensive heart disease with heart failure; Z86.73 Personal history of transient ischemic attack (TIA), and cerebral infarction without residual deficits; E78.00 Pure hypercholesterolemia, unspecified; I25.2 Old myocardial infarction; N28.9 Disorder of kidney and ureter, unspecified; Z95.1 Presence of aortocoronary bypass graft; F17.210 Nicotine dependence, cigarettes, uncomplicated
CPT/HCPCS: 51700; 81001; 99283

== ENCOUNTER 2020-10-07 16:48 | Emergency (ER) | payer MEDICARE, OTHER, SELFPAY ==
--- NOTE | ~2020-10-07 | XR_ITS ---
EXAMINATION: XR chest 2V DATE: 10/07/2020 18:14 INDICATION: Hypertension and congestive heart failure presenting with bilateral lower limb swelling TECHNIQUE: frontal and lateral views of the chest were obtained. COMPARISON: 06/30/2019 FINDINGS: Mild biapical pleural-parenchymal scarring. Very small bilateral pleural effusions with blunting at t he posterior sulci. Pulmonary vascular congestion with minimal increased interstitial pattern at the lung bases consistent with likely mild pulmonary edema. No pneumothorax. Cardiomediastinal silhouette is normal. Median sternotomy wires and mediastinal surgical clips are seen, likely from prior shelton ry artery bypass grafting. Mild thoracic spondylosis. IMPRESSION: 1. Likely congestive heart failure with minimal bibasilar pulmonary edema and very small bilateral pl eural effusions. Reviewed, dictated and finalized at location A. IMPRESSION: 1. Likely congestive heart failure with minimal bibasilar pulmonary edema and v angel small bilateral pleural effusions.
[2020-10-07 17:32] VITALS: BP 167/82; PULSE 55; RESP 20; TEMP 36.6; O2SAT 100
--- NOTE | 2020-10-07 17:37 | ECG_ITS ---
Measurements Intervals [place] Rate: 53 P: 59 IN: 153 QRS: -12 QRSD: 109 T: 24 QT: 484 QTc: 457 Interpretive Statements SINUS BRADYCARDIA VOLTAGE CRITERIA FOR LVH BORDERLINE ST-T WAVE ABNORMALITY- ANTEROLAT/INF LEADS BASELINE ARTIFACT- I, II, III, AVR, AVL, AVF, V1-V6 BORDERLINE ECG Electronically Signed On 10-08-2020 7:08:48 CDT by Huang Walsh D.O.
[2020-10-07 18:09] LABS: Basophils Percent Auto 0.5 % (0.2-1.2); Eosinophils Absolute Auto 0.1 K/mm3 (0-0.3); Eosinophils Percent Auto 1.5 % (0-4.4); Hematocrit 43.6 % (42.0-52.0); Hemoglobin 14.2 g/dL (14.0-18.0); Immature Granulocyte Absolute 0.01 K/mm3 (0.00-0.031); Immature Granulocyte Percent A 0.2 % (0-0.5); Lymphocytes Absolute Auto 1.65 K/mm3 (0.9-3.2); Lymphocytes Percent Auto 25.2 % (18.3-44.2); Mean Corpuscular HGB Conc 32.6 g/dl (32-36); Mean Corpuscular Hemoglobin 32.9 pg (26-34); Mean Corpuscular Volume 100.9 fl (80-100); Mean Platelet Volume 10.3 fl (7.4-10.4); Monocytes Absolute Auto 0.6 K/mm3 (0.1-0.6); Monocytes Percent Auto 9.3 % (2.6-8.5); Neutrophils Absolute Auto 4.2 K/mm3 (1.3-6.7); Neutrophils Percent Auto 63.3 % (45.5-73.1); Platelet Count Result 157 k/mm3 (150-375); Red Blood Count 4.32 M/mm3 (4.6-6.20); Red Cell Distribution Width 13.5 % (11.5-14.5); White Blood Count 6.6 K/mm3 (4.5-10.0)
[2020-10-07 18:21] LABS: Anion Gap 5 mmol/L (8-16); Blood Urea Nitrogen 12 mg/dL (9-20); Calcium 9.1 mg/dL (8.4-10.2); Carbon Dioxide 31 mmol/L (22-30); Chloride 101 mmol/L (98-107); Estimated CRCL calculation 64 ml/min; Estimated Glomerular Filt Rate > 60; Glucose 94 mg/dL (65-110); Potassium 3.8 mmol/L (3.4-5.0); Prothrombin Time 13.4 Seconds (11.1-14.7); Sodium 137 mmol/L (137-145)
[2020-10-07 18:23] LABS: Partial Thromboplastin Time 30.6 SECONDS (22.3-36.8)
--- NOTE | 2020-10-07 18:28 | ED.LOWEXIN ---
HPI - Extremity Injury (Lower) General Chief Complaint: Extremity Injury, Lower Stated Complaint: Feet swelling Time Seen by Provider: 10/07/20 17:18 Source: patient and family Mode of arrival: ambulatory Limitations: no limitations History of Present Illness HPI Narrative: 74-year-old male Here this evening because yesterday his noticed a little bit of swelling in his left foot and maybe a little in the right foot as well No other symptoms He has not injured himself, he does not have any pain or redness in the feet or lower legs, no increase in joint pains or joint swelling, no cough or shortness of breath, no chest pains, no fever He does take Lasix, does not think he is missed any doses Related Data Home Medications Medication Instructions Recorded Confirmed clopidogrel 75 mg PO DAILY 06/15/19 06/20/20 ramipril 10 mg PO BID 06/15/19 06/20/20 rosuvastatin 40 mg PO DAILY 06/15/19 06/20/20 furosemide 20 mg PO DAILY 10/07/20 Allergies Allergy/AdvReac Type Severity Reaction Status Date / Time Aminoglycosides Allergy Severe RASH Verified 10/07/20 17:34 bacitracin Allergy Severe Rash Verified 10/07/20 17:34 neomycin Allergy Severe RASH Verified 10/07/20 17:34 polymyxin B Allergy Severe Rash Verified 10/07/20 17:34 POLYMYXINBSULF Allergy Severe RASH Uncoded 06/20/20 08:54 Review of Systems Review of Systems: All systems reviewed & are unremarkable except as noted in HPI and below Constitutional: Constitutional: Reports no additional constitutional complaints, Denies chills, Denies fever(s), Denies headache(s) and Denies weakness Eyes: Eyes: Reports no additional eye complaints and Denies change in vision ENT: Denies headache(s) and Denies sore throat Cardiovascular: Cardiovascular: Denies chest pain and Denies dyspnea Respiratory: Respiratory: Denies cough and Denies dyspnea Gastrointestinal: Gastrointestinal: Denies abdominal pain, Denies diarrhea and Denies vomiting Genitourinary: Genitourinary: Denies dysuria and Denies urinary frequency Musculoskeletal: Musculoskeletal: Reports as per HPI, Denies deformity, Denies arthralgias, Denies joint swelling and Denies numbness Integumentary/Breasts: Skin/Breast: Denies rash and Denies wounds Neurologic: Denies headache(s), Denies focal weakness and Denies numbness Psychiatric: Psychiatric: Reports no additional psychiatric complaints Endocrine: Endocrine: Reports no additional endocrine complaints Hematologic/Lymphatic: Hematologic/Lymphatic: Reports no additional hematologic/lymphatic complaints Allergic/Immunologic: Allergic/Immunologic: Reports no additional allergic/immunologic complaints [facility] Past Medical History Medical History Arthritis Basal cell carcinoma (BCC) on face removed in 2011 CAD (coronary artery disease) CHF (congestive heart failure) Cough CVA (cerebral vascular accident) Cyst of right kidney DDD (degenerative disc disease) Enlarged prostate Farsightedness Foot fracture, left History of stroke with current residual effects HTN (hypertension) Hypercholesteremia Left ear hearing loss Myocardial infarction Renal disease Surgical History Surgical History H/O plastic surgery On ankle for infected dog bite History of cardiac cath History of open heart surgery Hx of CABG Family History Family History Father Congestive heart failure Mother Diabetes mellitus Cerebrovascular accident Sibling Diabetes mellitus Sibling No problems noted. Social History Social History Social History: Patient lives at home with his , Loan, whom he designates as his surrogate MDM. He wishes to be listed as a full code. His PCP is Dr. Kenny. Smoking packs per day: 1 Smoking cigar
[2020-10-07 18:30] LABS: D Dimer 0.78 ug/mL (<0.48)
[2020-10-07 18:33] LABS: NT Pro B Type Natriuretic Pept 3480 pg/mL (5-100); Troponin I 0.014 ng/mL (0.000-0.034)
[2020-10-07 18:38] VITALS: BP 166/77; PULSE 54; RESP 19; O2SAT 100
[2020-10-07 19:08] VITALS: BP 160/80; PULSE 49; RESP 13; O2SAT 100
--- NOTE | 2020-10-07 19:14 | PC.NURSE ---
updated pt and family member. no requests at this time.
[2020-10-07 20:10] VITALS: BP 172/66; PULSE 54; RESP 15; O2SAT 98
== END 2020-10-07 20:13 | disposition home or self-care (01) ==
PROVIDERS: Emergency Provider Emergency Medicine; PCP Family Medicine
DX: R60.0 Localized edema (principal); I50.9 Heart failure, unspecified; N40.0 Benign prostatic hyperplasia without lower urinary tract symptoms; I10 Essential (primary) hypertension; E78.00 Pure hypercholesterolemia, unspecified; I25.2 Old myocardial infarction; I69.90 Unspecified sequelae of unspecified cerebrovascular disease; N28.9 Disorder of kidney and ureter, unspecified; M19.90 Unspecified osteoarthritis, unspecified site; Z95.1 Presence of aortocoronary bypass graft; F17.210 Nicotine dependence, cigarettes, uncomplicated; Z85.828 Personal history of other malignant neoplasm of skin; R00.1 Bradycardia, unspecified; R94.31 Abnormal electrocardiogram [ECG] [EKG]
CPT/HCPCS: 36415; 71046; 80048; 83880; 84484; 85025; 85380; 85610; 85730; 93005; 99284

== ENCOUNTER 2020-10-08 07:22 | Outpatient (CLI) | payer MEDICARE, OTHER, SELFPAY ==
--- NOTE | ~2020-10-08 | US_ITS ---
EXAMINATION: US venous doppler [facility] DATE: 10/08/2020 08:15 INDICATION: Left lower limb swelling TECHNIQUE: Holliday scale images without and with compression and Doppler images of the left lower extrem ity veins were obtained. COMPARISON: None FINDINGS: The left common femoral vein, profunda femoral vein, femoral vein, popliteal vein, peroneal trunk, posterior tibial veins, and greater saphenous vein are patent. IMPRESSION: 1. Patent left lower extremity veins. No evidence of deep venous thrombosis. Reviewed, dictated and finalized at location A.
== END 2020-10-08 07:23 | disposition home or self-care (01) ==
PROVIDERS: PCP Family Medicine; Visit Provider Emergency Medicine
DX: M79.89 Other specified soft tissue disorders (principal); R79.89 Other specified abnormal findings of blood chemistry
CPT/HCPCS: 93971

== ENCOUNTER 2020-12-03 15:02 | Emergency (ER) | payer MEDICARE, OTHER, SELFPAY ==
--- NOTE | ~2020-12-03 | US_ITS ---
EXAMINATION:US venous doppler LE LT INDICATION:Left calf pain TECHNIQUE: Multiple grayscale, color flow and Doppler images of the left lower extremity deep venous systems were obtained and reviewed. COMPARISON:10/08/2020 FINDINGS: The common femoral, superficial femoral and popliteal veins demonstrate normal respiratory variation, augmentation and compressibility. Color flow is also seen within the posterior tibial, pe roneal, greater saphenous and profunda veins. IMPRESSION: 1: No lower extremity deep venous thrombosis. Reviewed, dictated and finalized at location A.
[2020-12-03 15:07] VITALS: BP 150/58; PULSE 61; RESP 16; TEMP 36.6; O2SAT 99
--- NOTE | 2020-12-03 19:06 | ED.LOWEXIN ---
HPI - Extremity Injury (Lower) General Chief Complaint: Extremity Injury, Lower Stated Complaint: left calf pain Time Seen by Provider: 12/03/20 18:02 Source: patient and family Mode of arrival: ambulatory Limitations: no limitations History of Present Illness HPI Narrative: 74-year-old male Here for evaluation of left calf pain and possible DVT Patient states that he had a small DVT last year that did not require additional treatment He stopped his blood thinners because of an upcoming prostate procedure Yesterday he had calf pain while he was shopping at [employer] and then again at night He does not have any swelling On exam he has no swelling but does have decreased pulses on the left and on review of his prior record none of his Dopplers have actually been positive for DVT, however he does have peripheral vascular disease, history of stents, and a arterial Doppler done last summer with a 0.9 FREDERIC on that side It does sound like the symptoms he is describing might be much more consistent with calf claudication Related Data Home Medications Medication Instructions Recorded Confirmed clopidogrel 75 mg PO DAILY 06/15/19 06/20/20 ramipril 10 mg PO BID 06/15/19 12/03/20 rosuvastatin 40 mg PO DAILY 06/15/19 12/03/20 furosemide 20 mg PO DAILY 10/07/20 12/03/20 Allergies Allergy/AdvReac Type Severity Reaction Status Date / Time Aminoglycosides Allergy Severe RASH Verified 12/03/20 17:42 bacitracin Allergy Severe Rash Verified 12/03/20 17:42 neomycin Allergy Severe RASH Verified 12/03/20 17:42 polymyxin B Allergy Severe Rash Verified 12/03/20 17:42 POLYMYXINBSULF Allergy Severe RASH Uncoded 12/03/20 17:42 Review of Systems Review of Systems: All systems reviewed & are unremarkable except as noted in HPI and below Constitutional: Constitutional: Reports no additional constitutional complaints, Denies chills, Denies fever(s) and Denies headache(s) Eyes: Eyes: Reports no additional eye complaints and Denies change in vision ENT: Denies headache(s) and Denies sore throat Cardiovascular: Cardiovascular: Denies chest pain and Denies dyspnea Respiratory: Respiratory: Denies cough and Denies dyspnea Gastrointestinal: Gastrointestinal: Denies abdominal pain, Denies diarrhea and Denies vomiting Genitourinary: Genitourinary: Denies dysuria and Denies urinary frequency Musculoskeletal: Musculoskeletal: Reports myalgias, Denies deformity, Reports arthralgias, Denies joint swelling, Reports muscle cramps and Denies numbness Integumentary/Breasts: Skin/Breast: Denies rash and Denies wounds Neurologic: Denies headache(s), Denies focal weakness and Denies numbness Psychiatric: Psychiatric: Reports no additional psychiatric complaints Endocrine: Endocrine: Reports no additional endocrine complaints Hematologic/Lymphatic: Hematologic/Lymphatic: Reports no additional hematologic/lymphatic complaints Allergic/Immunologic: Allergic/Immunologic: Reports no additional allergic/immunologic complaints [facility] Past Medical History Medical History Arthritis Basal cell carcinoma (BCC) on face removed in 2011 CAD (coronary artery disease) CHF (congestive heart failure) Cough CVA (cerebral vascular accident) Cyst of right kidney DDD (degenerative disc disease) Enlarged prostate Farsightedness Foot fracture, left History of stroke with current residual effects HTN (hypertension) Hypercholesteremia Left ear hearing loss Myocardial infarction Renal disease Surgical History Surgical History H/O plastic surgery On ankle for infected dog bite History of cardiac cath History of open heart surgery Hx of CABG Family History Family History Father Congestive heart failure Mother Diabetes mellitus Cerebrovascular accident Sibling
[2020-12-03 19:42] VITALS: BP 179/77; PULSE 88; RESP 14; O2SAT 100
== END 2020-12-03 19:39 | disposition home or self-care (01) ==
PROVIDERS: Emergency Provider Emergency Medicine; PCP Family Medicine
DX: I77.9 Disorder of arteries and arterioles, unspecified (principal); I25.10 Atherosclerotic heart disease of native coronary artery without angina pectoris; I50.9 Heart failure, unspecified; I11.0 Hypertensive heart disease with heart failure; N40.0 Benign prostatic hyperplasia without lower urinary tract symptoms; E78.00 Pure hypercholesterolemia, unspecified; I25.2 Old myocardial infarction; N28.9 Disorder of kidney and ureter, unspecified; M19.90 Unspecified osteoarthritis, unspecified site; Z86.73 Personal history of transient ischemic attack (TIA), and cerebral infarction without residual deficits; Z86.718 Personal history of other venous thrombosis and embolism; Z95.1 Presence of aortocoronary bypass graft; F17.210 Nicotine dependence, cigarettes, uncomplicated
CPT/HCPCS: 93971; 99284

== ENCOUNTER 2020-12-14 07:26 | Outpatient (CLI) | payer MEDICARE, OTHER, SELFPAY ==
--- NOTE | ~2020-12-14 | MR_ITS ---
EXAMINATION: MR pelvis wo/w con DATE: 12/14/2020 09:05 INDICATION: Prostate cancer TECHNIQUE: MRI of the pelvis was performed. without and with 15 mL Multihance Fullfield sequences of the pelvis included axial and coronal T2-weighted SS FSE, axial, sagittal and coronal 2D FIESTA, axi al 2D FIESTA FS, axial SSFSE-IR YESSICA, axial dual-echo T1-weighted FSPGR, axial and coronal T1 weighted LAVA, 3D axial T2 Cube, axial diffusion-weighted SE with apparent diffusion coefficient (ADC) maps. Postcontrast sequences included a time course axial T1-weighted LAVA and sagittal and coronal T1-weig hted LAVA. COMPARISON: None. FINDINGS: Prostate measures 5.2 x 4.0 x 4.7 cm. There is an approximately 4.0 x 1.2 x 4.2 cm region of T2 hyper intense likely hydrogel positioned between the prostate in the anterior wall of the rectum. Bladder i s normal. No pathologically enlarged pelvic or inguinal lymphadenopathy. Mild bilateral hip osteoarth ritis with regions of subarticular cystic change at the superolateral rim of the right acetabulum. Thomas ne marrow signal is normal with no fracture or pathologic marrow replacing process. Visualized bowels including the appendix are normal. IMPRESSION: 1. Region of hydrogen positioned between the enlarged prostate in the anterior wall of the rectum. No evident metastatic disease. Prostate Reviewed, dictated and finalized at location A.
[2020-12-14 08:08] LABS: Estimated Glomerular Filt Rate 59
== END 2020-12-14 07:27 | disposition home or self-care (01) ==
LOC: ANHIMG 07:41
PROVIDERS: PCP Family Medicine; Visit Provider Radiology Radiation Oncology
DX: C61 Malignant neoplasm of prostate (principal)
CPT/HCPCS: 72197; A9577

== ENCOUNTER 2022-01-27 10:02 | Outpatient (CLI) | payer MEDICARE, OTHER, SELFPAY ==
[2022-01-27 10:42] LABS: Anion Gap 12 mmol/L (8-16); Blood Urea Nitrogen 17 mg/dL (9-20); Calcium 8.5 mg/dL (8.4-10.2); Carbon Dioxide 24 mmol/L (22-30); Chloride 105 mmol/L (98-107); Estimated Glomerular Filt Rate > 60; Glucose 130 mg/dL (65-110); Potassium 3.4 mmol/L (3.4-5.0); Sodium 141 mmol/L (137-145)
--- NOTE | 2022-01-27 10:45 | ECG_ITS ---
Measurements Intervals [place] Rate: 64 P: 99 MT: 154 QRS: 13 QRSD: 117 T: -24 QT: 445 QTc: 460 Interpretive Statements SINUS RHYTHM FREQUENT VENTRICULAR PREMATURE COMPLEXES INTRAVENTRICULAR CONDUCTION DELAY BORDERLINE ST-T WAVE ABNORMALITY- INFERIOR LEADS ABNORMAL ECG COMPARED TO ECG 10/07/2020 17:46:43 SINUS RHYTHM NOW PRESENT FREQUENT VENTRICULAR PREMATURE COMPLEXES NOW PRESENT Electronically Signed On 01-27-2022 12:22:57 CDT by Huang Waslh D.O.
== END 2022-01-27 10:03 | disposition home or self-care (01) ==
PROVIDERS: PCP Family Medicine; Referring Provider Urology; Visit Provider Anesthesiology
DX: N40.0 Benign prostatic hyperplasia without lower urinary tract symptoms (principal); I10 Essential (primary) hypertension; Z01.818 Encounter for other preprocedural examination; I45.9 Conduction disorder, unspecified
CPT/HCPCS: 36415; 80048; 87086; 93005

== ENCOUNTER 2022-01-30 01:22 | Day surgery (SDC) | payer MEDICARE, OTHER, SELFPAY ==
[2022-01-19 15:23] VITALS: BMI 20.5
--- NOTE | 2022-01-19 15:51 | PC.NURSE ---
Report to the Outpatient Waiting Room, entrance under the green pavilion located off [facility], at time __8:45AM on date __01/30/22 . Planned Procedure Time: __10:45AM . Time changes happen often and if your time is changed the preop area will call you the afternoon before. - You and your visitor will be asked to self-screen and do not enter if you have any COVID symptoms. - We encourage only one visitor and NO visitors under age 16 are allowed at this time. Your visitor will receive communication by the phone number that is given day of service. - The patient visitor is requested to social distance or may leave the building when not with patient due to restrictions. - A mask is required within the hospital. Patients may have clear liquids (water, carbonated beverages, clear teas, apple juice) until 3 hours prior to surgery with a maximum of 20 ounces. Take the following medications with a SIP of water the morning of surgery: ____CARVEDILOL Medications to discontinue per physician __HOLD ELIQUIS 2 DAYS PRE-OP- LAST DOSE 01/27/22, HOLD PLAVIX 7 DAYS PRE-OP- LAST DOSE 01/23/[address] ANDERSON (PER PT). Please no make-up, nail thai, hairspray, perfume, deodorant, or body powder the day of surgery. No jewelry (including any body piercings) or valuables the day of surgery, leave them at home. Please take a shower or bath the night before, or the morning of, surgery with an antibacterial soap. Wear comfortable, loose fitting clothing. Children are encouraged to wear pajamas. - Jewelry must be removed prior to entering the operating room. Rings and piercings that are not removed may be cut off. - The hospital will not accept responsibility for valuables. - Please leave all valuables, including medications, at home the day of surgery. If you are going home after surgery, a licensed cart driver must drive you home. - NO public transportation without another adult. - We recommend that an adult stay with you for 24 hours following discharge. - We also recommend that you do not drive, make important decision, drink alcoholic beverages, or take any drugs that were not prescribed by your health care provider for at least 24 hours after your discharge time. Follow any additional instructions given to you from your surgeon. If you or anyone in your household have experienced Covid symptoms in the past week, please notify your surgeon or the nurse liaison at the phone number below for possible testing. Telephone instructions given to ___PATIENT and asked if any additional questions and then verbalized understanding. Patient advised to call surgeon office or pre surgery nurse liaison [phone] if any additional questions.
--- NOTE | 2022-01-30 08:45 | WPDHPUPDATE1 ---
History and Physical Update Update Date/Time: 01/30/22 08:45 History and Physical has been reviewed, including an updated exam of the patient. There are NO changes in the patient's condition. Risks, benefits, and alternatives have been discussed and questions answered. Patient agrees to proceed with procedure. Proceed with UroLift
--- NOTE | 2022-01-30 09:31 | WPDANESEPPF ---
Anes - Initial Pre Proc Eval Procedure: Operation Date: 01/30/22 10:45 Proposed Procedures p Urolift - Jasen Whalen MD Date/Time: 01/30/22 09:31 Surgeon: Jasen Whalen MD Pre Op Diagnosis: bph Patient Data Age: 76 Gender: M Height: 1.83 m Weight: 68.5 kg Allergies Allergy/AdvReac Type Severity Reaction Status Date / Time Aminoglycosides Allergy Severe RASH Verified 01/19/22 15:15 bacitracin Allergy Severe Rash Verified 01/19/22 15:15 neomycin Allergy Severe RASH Verified 01/19/22 15:15 polymyxin B Allergy Severe Rash Verified 01/19/22 15:15 POLYMYXINBSULF Allergy Severe RASH Uncoded 01/19/22 15:15 Home Medications Medication Instructions Recorded Confirmed Type rosuvastatin 20 mg tablet 40 mg PO DAILY 06/15/19 01/19/22 History apixaban 5 mg tablet 5 mg PO BID #60 tabs 03/10/21 01/19/22 Rx clopidogrel 75 mg tablet (Plavix) 75 mg PO DAILY #90 tabs 11/20/21 01/19/22 Rx furosemide 20 mg tablet 20 mg PO QAM #90 tabs 11/20/21 01/19/22 Rx amoxicillin 500 mg-potassium 1 tablet PO BID 01/19/22 01/19/22 History clavulanate 125 mg tablet carvedilol 12.5 mg tablet 12.5 mg PO BID 01/19/22 01/19/22 History tamsulosin 0.4 mg capsule 0.4 mg PO BID 01/19/22 01/19/22 History Patient hx anesthesia problems: none Family hx anesthesia problems: none Results Review: All pre-operative results and documents have been reviewed as part of the pre-operative evaluation. [facility] Past Medical History Medical History Arthritis Basal cell carcinoma (BCC) on face removed in 2011 CAD (coronary artery disease) CHF (congestive heart failure) Cough CVA (cerebral vascular accident) Cyst of right kidney DDD (degenerative disc disease) Enlarged prostate Farsightedness Foot fracture, left History of stroke with current residual effects HTN (hypertension) Hypercholesteremia Left ear hearing loss Myocardial infarction Renal disease Surgical History Surgical History H/O plastic surgery On ankle for infected dog bite History of cardiac cath History of open heart surgery Hx of CABG Family History Family History Father Congestive heart failure Mother Diabetes mellitus Cerebrovascular accident Sibling Diabetes mellitus Sibling No problems noted. Social History Social History Social History: Patient lives at home with his , Loan, whom he designates as his surrogate MDM. He wishes to be listed as a full code. His PCP is Dr. Kenny. Smoking packs per day: 1 Smoking cigarettes per day: 20.0 Years smoked: 60 Smoking pack-years: 60.00 Smoking status: Current every day smoker Tobacco type: cigarettes Second hand tobacco smoke exposure: Yes Additional smoking assessment comments: DECREASING DOWN TO 10 CIG/DAY CURRENTLY Alcohol intake: never Substance use: never Substance use type: does not use Living arrangements: with family Additional living arrangements comments: Gender identity (if verbalized by the patient): Male Spiritual care concerns: No Agree to blood products: Yes Anes - Eval Final PreProcedure Day of Procedure 01/30/22 09:31 Patient weight: normal Heart: regular rate and rhythm Lungs: clear to auscultation Airway: Mallampati scale class 1 Neurological: alert and oriented Last oral intake: >/= 8 hours ASA classification: III Emergent: no Anesthetic plan: proceed Anesthesia type and monitoring: general GIVS and standard monitoring Results Review: All pre-operative results and documents have been reviewed as part of the pre-operative evaluation. Informed Consent: The patient's anesthetic plan and its attendant risks and benefits were discussed with the patient/family/POA. Questions we
[2022-01-30 09:48] VITALS: BP 122/64; PULSE 64; RESP 14; TEMP 36.5; O2SAT 100
[2022-01-30] MEDS: LACTATED RINGERS 1,000 ML 30 ML IV CONT (09:56)
[2022-01-30] MEDS: ceFAZolin 2 GM/D5W 50 ML 2 GM/50 ML BAG IVPB (10:18)
[2022-01-30] MEDS: LIDOCAINE HCL 2% GEL UROJET 10 ML PKG MUCOUS MEM (10:28)
--- NOTE | 2022-01-30 10:37 | P.OP_ITS ---
Procedure Note - Detailed Date of Procedure 01/30/22 Pre-op Diagnosis bph Post-op Diagnosis Same Procedure Performed UroLift with 5 jose Surgeon Jasen Whalen MD Anesthesia General Description of Procedure Patient is taken to the operative suite correctly identified. Once anesthesia was obtained he was placed in the dorsal lithotomy position and prepped and draped usual sterile fashion. A UroLift scope was then inserted. The bladder showed no evidence of tumors at this time. We placed the 1st staple 2.5 cm proximal to the bladder neck at the 3 o'clock position. Similar 1 was placed at the 9 o'clock position. We then placed 1 at the 1 o'clock position and 11 o'clock position. Reinspection reveals a little bit of protuberance of the left lobe and we placed a 3rd staple on the left side just inferior to the 3:00 a.m. stable. 2% viscous lidocaine was inserted into the urethra patient is taken recovery room stable condition after a 16 [place] Da Silva was placed. The Da Silva will be removed on Saturday. Estimated Blood Loss 0 Drains Yes Packing No Pathology None sent Complications No immediate complications Condition Stable Disposition PACU
[2022-01-30 10:45] VITALS: BP 88/43; PULSE 58; RESP 12; O2SAT 100
[2022-01-30 11:15] VITALS: BP 133/36; PULSE 60; RESP 16
[2022-01-30 11:45] VITALS: BP 127/75; PULSE 58; RESP 16
--- NOTE | 2022-01-30 12:12 | SUR.PHASEII ---
DR. BERNSTEIN CALLED TO ASK RE: ELIQUIS; DR. BERNSTEIN INSTRUCTED TO HOLD BOTH ELIQUIS AND PLAVIX UNTIL 02/01/22. MESSAGE RELAYED TO PATIENT AND SPOUSE; WRITTEN ON D/C INSTRUCTIONS.
== END 2022-01-30 12:17 | disposition home or self-care (01) ==
PROVIDERS: PCP Family Medicine; Visit Provider Urology
PROC: 0T7D8DZ Dilation of Urethra with Intraluminal Device, Via Natural or Artificial Opening Endoscopic (ICD-10-PCS; CPT 52441; principal; 2022-01-30 10:45)
DX: N40.1 Benign prostatic hyperplasia with lower urinary tract symptoms (principal); R33.8 Other retention of urine; R39.11 Hesitancy of micturition; I11.0 Hypertensive heart disease with heart failure; I50.9 Heart failure, unspecified; E78.00 Pure hypercholesterolemia, unspecified; I25.10 Atherosclerotic heart disease of native coronary artery without angina pectoris; Z86.73 Personal history of transient ischemic attack (TIA), and cerebral infarction without residual deficits; I25.2 Old myocardial infarction; Z95.1 Presence of aortocoronary bypass graft; F17.210 Nicotine dependence, cigarettes, uncomplicated; Z79.02 Long term (current) use of antithrombotics/antiplatelets; Z79.01 Long term (current) use of anticoagulants
CPT/HCPCS: C9740; A9270; J0690; J2704; J7120; L8699

== ENCOUNTER 2022-04-19 13:05 | Emergency (ER) | payer MEDICARE, OTHER, SELFPAY ==
[2022-04-19] VITALS (18 sets, daily range): BP systolic 94–130; BP diastolic 58–95; PULSE 55–69; RESP 12–20; TEMP 36.9; O2SAT 96–100
--- NOTE | ~2022-04-19 | CT_ITS ---
EXAMINATION: CTA LE LT DATE: 04/19/2022 17:41 INDICATION: Left lower limb pain. TECHNIQUE: Computed tomographic angiography (CTA) of the left lower extremity was performed with 150 mL Omnipaque-350 intravenous contrast. Automated exposure control and iterative reconstruction techni que were employed. The dose-length product was 490.44 mGy-cm. Maximum intensity projection 3D-reconst ructions of the arteries were created by the technologist on a separate workstation. COMPARISON: ABIs 04/19/2022 FINDINGS: LEFT LOWER EXTREMITY VASCULATURE: There are patent stents in left external iliac artery. There is no significant stenosis of common fem oral artery. There is mild stenosis of the deep femoral artery. There is total occlusion of [place] perficial femoral artery, popliteal artery, and tibioperoneal trunk. There is a long stent in superfi cial femoral artery and popliteal artery. There is reconstitution of flow in distal posterior tibial artery. There is reconstitution of flow in mid anterior tibial artery. There is total occlusion of do rsalis pedis. There is reconstitution of flow in distal peroneal artery. There is total occlusion of a graft from common femoral artery to posterior tibial artery. ADDITIONAL FINDINGS: There is diffuse bladder wall thickening, likely secondary to chronic outlet obstruction. The prostat e is moderately enlarged. There are brachytherapy seeds in the prostate. IMPRESSION: 1. Total occlusion of origin of [place] superficial femoral artery with reconstitution of flow in dis estela posterior tibial artery, mid anterior tibial artery, and distal peroneal artery. Total occlusion of dorsalis pedis. 2. Totally occluded bypass graft from common femoral artery to posterior tibial artery. Reviewed, dictated and finalized at location A. STRATEGIST IMPRESSION: 1. Total occlusion of origin of [place] superficial femoral artery with reconst itution of flow in distal posterior tibial artery, mid anterior tibial artery, and distal peroneal artery. Total occlusion of dorsalis pedis. 2. Totally occluded bypass graft from common femoral artery to posterior tibial artery.
--- NOTE | ~2022-04-19 | US_ITS ---
EXAMINATION: US arterial ankle brachial ind DATE: 04/19/2022 15:31 INDICATION: Lower limb pain and erythema TECHNIQUE: Segmental pressures and plethysmographic and Doppler waveforms of the brachial and lower e xtremity arteries were obtained. COMPARISON: None. FINDINGS: Right and left brachial artery pressures of 130 mm Hg and 138 mm Hg, respectively, are concordant (no rmal difference <= 30 mmHg). The right ankle-brachial index (FREDERIC) is 0.99 (normal >= 0.9-1.0). The right great toe-brachial index (TBI) is 0.51 (normal >= 0.65). Arterial Doppler waveforms are biphasic with brisk systolic upstrokes at both right posterior tibial and dorsalis pedis arteries. The left FREDERIC is unable to be obtained due to inability to occlude vessels at the left ankle. The left TBI was unable to be obtained due to patient refusal to place a cuff on the great toe where there is a wound. There is decreased amplitude of the arterial waveforms at both the left posterior tibial an d dorsalis pedis arteries are very low relative to normal is which limits assessment. There appear to be parvus and tardus waveforms with delayed upstrokes and at least the left posterior tibial artery. IMPRESSION: 1. Mild arterial occlusive disease to the right lower limb with borderline right FREDERIC and moderately d ecreased right TBI. 2. Pressure indices unable be obtained at the left ankle were great toe as detailed above. The amplit udes of the arterial waveforms at the left ankle are low with suggestion of delayed upstrokes and at least the left posterior tibial artery which suggests arterial occlusive disease of likely greater de gree than at the contralateral right lower limb. Reviewed, dictated and finalized at location L. ICING MACHINE OPERATOR IMPRESSION: 1. Mild arterial occlusive disease to the right lower limb with borderline righ t FREDERIC and moderately decreased right TBI. 2. Pressure indices unable be obtained at the left ankle were great toe as deta iled above. The amplitudes of the arterial waveforms at the left ankle are low with suggestion of delayed upstrokes and at least the left posterior tibial art angel which suggests arterial occlusive disease of likely greater degree than at the contralateral right lower limb.
[2022-04-19 15:32] LABS: Hematocrit 35.1 % (42.0-52.0); Hemoglobin 11.3 g/dL (14.0-18.0); Mean Corpuscular HGB Conc 32.2 g/dl (32-36); Mean Corpuscular Hemoglobin 30.5 pg (26-34); Mean Corpuscular Volume 94.6 fl (80-100); Mean Platelet Volume 9.5 fl (7.4-10.4); Platelet Count Result 198 k/mm3 (150-375); Red Blood Count 3.71 M/mm3 (4.6-6.20); Red Cell Distribution Width 16.3 % (11.5-14.5); White Blood Count 7.7 K/mm3 (4.5-10.0)
[2022-04-19 15:43] LABS: INR 1.4; Prothrombin Time 16.4 Seconds (11.1-14.7)
[2022-04-19 15:44] LABS: Lactic Acid Reflex 0.9 mmol/L (0.7-2.0); Partial Thromboplastin Time 41.5 SECONDS (22.3-36.8)
[2022-04-19 15:47] LABS: Alanine Aminotransferase 24 U/L (6-50); Albumin Level 3.3 g/dL (3.5-5.1); Alkaline Phosphatase 67 U/L (38-126); Anion Gap 4 mmol/L (8-16); Aspartate Amino Transferase 28 U/L (17-59); Bilirubin,Total 0.5 mg/dL (0.2-1.3); Blood Urea Nitrogen 20 mg/dL (9-20); Calcium 8.4 mg/dL (8.4-10.2); Carbon Dioxide 32 mmol/L (22-30); Chloride 97 mmol/L (98-107); Estimated CRCL calculation 45 ml/min; Estimated Glomerular Filt Rate 54; Glucose 99 mg/dL (65-110); Potassium 2.8 mmol/L (3.4-5.0); Sodium 133 mmol/L (137-145)
[2022-04-19 16:04] LABS: Band Neutrophils Percent 2 % (0-6); Lymphocytes Absolute Manual 0.38 K/mm3 (1.1-4.5); Monocytes Absolute Manual 0.69 K/mm3 (0.1-0.90); Monocytes Percent Manual 9 % (3-9); Neutrophils Absolute Manual 6.62 K/mm3 (1.3-6.7); Neutrophils Percent Manual 84 % (46-73); Platelet Estimate Adequate (Adequate); Total Cells Counted 100
[2022-04-19 16:05] LABS: Anisocytosis 1+ (NORMAL); Schistocytes None Seen (NORMAL)
[2022-04-19 16:12] LABS: Magnesium 2.6 mg/dL (1.6-2.3)
[2022-04-19] MEDS: POTASSIUM CHLORIDE 20 MEQ TABLET 40 MEQ PO (16:21)
--- NOTE | 2022-04-19 17:26 | ED.GENADULT ---
HPI - General Adult General Chief complaint: Extremity Injury, Lower <Enrique Delacruz DO - Last Filed: 04/19/22 18:48> Stated complaint: L leg pain <Enrique Delacruz DO - Last Filed: 04/19/22 18:48> Time Seen by Provider: 04/19/22 13:34 <Enrique Delacruz DO - Last Filed: 04/19/22 18:48> Source: RN notes reviewed <Enrique Delacruz DO - Last Filed: 04/19/22 18:48> History of Present Illness HPI narrative: Patient presents emergency department from home for left great toe wound. Patient states symptoms began approximately 1 week ago. States he has a history of numerous bypasses in his left leg and is followed by vascular surgery meliton at [facility] states that approximately a week ago he began to notice some discoloration of his lower legs and increasing pain over the past week with a wound over his left great toe states the pain became more severe today and he came in for further evaluation states he has had no numbness or tingling of his leg he denies any fevers or chills chest pain or shortness of breath states he is on Eliquis and Plavix which he both last took this morning and took his Eliquis at 5 AM <Enrique Delacruz DO - Last Filed: 04/19/22 18:48> Related Data Home medications: Home Medications Medication Instructions Recorded Confirmed rosuvastatin 20 mg tablet 40 mg PO DAILY 06/15/19 01/19/22 amoxicillin 500 mg-potassium 1 tablet PO BID 01/19/22 01/19/22 clavulanate 125 mg tablet carvedilol 12.5 mg tablet 12.5 mg PO BID 01/19/22 01/19/22 tamsulosin 0.4 mg capsule 0.4 mg PO BID 01/19/22 01/19/22 <Enrique Delacruz DO - Last Filed: 04/19/22 18:48> Allergies/adverse reactions: Allergies Allergy/AdvReac Type Severity Reaction Status Date / Time Aminoglycosides Allergy Severe RASH Verified 04/19/22 16:52 bacitracin Allergy Severe Rash Verified 04/19/22 16:52 neomycin Allergy Severe RASH Verified 04/19/22 16:52 polymyxin B Allergy Severe Rash Verified 04/19/22 16:52 POLYMYXINBSULF Allergy Severe RASH Uncoded 04/19/22 16:52 <Enrique Delacruz DO - Last Filed: 04/19/22 18:48> Review of Systems Review of Systems: Gen.: Denies fevers or chills ENT: Denies congestion Respiratory: Denies shortness of breath or cough CV: Denies chest pain or palpitations GI: Denies abdominal pain nausea, emesis or diarrhea Musculoskeletal: Denies back pain or muscle pain Neuro: Denies numbness, tingling, weakness or focal weakness Skin: See HPI Except as documented, all other systems reviewed and negative <Enrique Delacruz DO - Last Filed: 04/19/22 18:48> [facility] Past Medical History Medical History: Medical History Arthritis Basal cell carcinoma (BCC) on face removed in 2011 CAD (coronary artery disease) CHF (congestive heart failure) Cough CVA (cerebral vascular accident) Cyst of right kidney DDD (degenerative disc disease) Enlarged prostate Farsightedness Foot fracture, left History of stroke with current residual effects HTN (hypertension) Hypercholesteremia Left ear hearing loss Myocardial infarction Renal disease <Enrique Delacruz DO - Last Filed: 04/19/22 18:48> Surgical History Surgical History: Surgical History H/O plastic surgery On ankle for infected dog bite History of cardiac cath History of open heart surgery Hx of CABG <Enrique Delacruz DO - Last Filed: 04/19/22 18:48> Family History Family History: Family History Father Congestive heart failure Mother Diabetes mellitus Cerebrovascular accident Sibling Diabetes mellitus Sibling No problems noted. <Enrique Delacruz DO - Last Filed: 04/19/22 18:48> Social History Social History: Social History Social
[2022-04-19] MEDS: MORPHINE SULFATE (*CRX) 2 MG/ML INJ IV PUSH (18:26)
[2022-04-19] MEDS: HEPARIN SOD/D5W 100 UNITS/ML 25,000 UNITS/250 ML BAG 13 UNITS IV CONT (18:27)
[2022-04-19 19:08] LABS: Influenza A QL RT-PCR Negative (Negative); Influenza B QL RT-PCR Negative (Negative); SARS-CoV-2 RNA PCR Negative
[2022-04-19 19:51] LABS: Anion Gap 4 mmol/L (8-16); Blood Urea Nitrogen 18 mg/dL (9-20); Carbon Dioxide 29 mmol/L (22-30); Chloride 98 mmol/L (98-107); Estimated CRCL calculation 48 ml/min; Estimated Glomerular Filt Rate 59; Glucose 163 mg/dL (65-110); Potassium 3.1 mmol/L (3.4-5.0); Sodium 131 mmol/L (137-145)
[2022-04-19 22:41] LABS: INR 1.6; Prothrombin Time 18.3 Seconds (11.1-14.7)
[2022-04-20] MEDS: MORPHINE SULFATE (*CRX) 4 MG/ML INJ IV PUSH (00:17)
--- NOTE | 2022-04-20 00:32 | PC.NURSE ---
EMS here for transfer to [facility] at this time. Pt A&Ox4, resp even non-labored. Pain medication given prior to departure.
[2022-04-20 00:36] LABS: Partial Thromboplastin Time 188.8 SECONDS (22.3-36.8)
== END 2022-04-20 00:30 | disposition short-term general hospital (02) ==
PROVIDERS: Emergency Medicine; Emergency Provider Family Medicine; PCP Family Medicine
DX: L03.116 Cellulitis of left lower limb (principal); I70.322 Atherosclerosis of unspecified type of bypass graft(s) of the extremities with rest pain, left leg; I70.222 Atherosclerosis of native arteries of extremities with rest pain, left leg; I70.92 Chronic total occlusion of artery of the extremities; E87.6 Hypokalemia; Z20.822 Contact with and (suspected) exposure to COVID-19; I25.10 Atherosclerotic heart disease of native coronary artery without angina pectoris; I50.9 Heart failure, unspecified; I11.0 Hypertensive heart disease with heart failure; E78.00 Pure hypercholesterolemia, unspecified; I25.2 Old myocardial infarction; N28.9 Disorder of kidney and ureter, unspecified; N40.0 Benign prostatic hyperplasia without lower urinary tract symptoms; M19.90 Unspecified osteoarthritis, unspecified site; F17.210 Nicotine dependence, cigarettes, uncomplicated; Z95.1 Presence of aortocoronary bypass graft; Z85.828 Personal history of other malignant neoplasm of skin; Z79.02 Long term (current) use of antithrombotics/antiplatelets; Z79.01 Long term (current) use of anticoagulants; R93.41 Abnormal radiologic findings on diagnostic imaging of renal pelvis, ureter, or bladder
CPT/HCPCS: 36415; 73706; 80048; 80053; 83605; 83735; 85025; 85610; 85730; 87040; 87636; 93922; 96365; 96375; 96376; 99285; A9270; J0690; J1644; J2270; Q9967

== ENCOUNTER 2022-05-03 07:09 | Inpatient (IN) | payer MEDICARE, OTHER, SELFPAY ==
[2022-05-03] VITALS (17 sets, daily range): BP systolic 100–138; BP diastolic 32–80; PULSE 69–90; RESP 13–20; TEMP 36.7–38.3; O2SAT 96–100
--- NOTE | ~2022-05-03 | XR_ITS ---
EXAMINATION: XR chest 2V DATE: 05/03/2022 08:16 INDICATION: Fever. TECHNIQUE: Frontal and lateral views of the chest were obtained. COMPARISON: Chest 2 views 10/07/2020 FINDINGS: There is mild scarring at the lung apices. Miguel B-lines are noted, consistent with mild p ulmonary edema. Chronic blunting of left posterior costophrenic angle may be scarring or a tiny pleur al effusion. No pneumothorax. The heart size is normal. Median sternotomy wires and mediastinal surgi akin clips are seen, likely from prior coronary artery bypass grafting. IMPRESSION: 1. Mild pulmonary edema. Reviewed, dictated and finalized at location A. ER PANTY HOSE IMPRESSION: 1. Mild pulmonary edema.
--- NOTE | 2022-05-03 07:28 | ED.FEVER ---
HPI - Fever General Chief Complaint: Fever Stated Complaint: susp. uti Time Seen by Provider: 05/03/22 07:28 Source: patient and EMS Mode of arrival: EMS Limitations: no limitations History of Present Illness HPI Narrative: 76 years old white male brought to the emergency room by ambulance from rehab because of fever. 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 Patient denying any symptoms except would like to have some pain medication for his left lower leg. He denies any fever, chills, nausea, vomiting, chest pain, shortness of breath, coughing, headache. Patient did not take any medication or his breakfast prior to arrival Related Data Home Medications Medication Instructions Recorded Confirmed rosuvastatin 20 mg tablet 40 mg PO DAILY 06/15/19 01/19/22 amoxicillin 500 mg-potassium 1 tablet PO BID 01/19/22 01/19/22 clavulanate 125 mg tablet carvedilol 12.5 mg tablet 12.5 mg PO BID 01/19/22 01/19/22 tamsulosin 0.4 mg capsule 0.4 mg PO BID 01/19/22 01/19/22 Allergies Allergy/AdvReac Type Severity Reaction Status Date / Time Aminoglycosides Allergy Severe RASH Verified 05/03/22 11:10 bacitracin Allergy Severe Rash Verified 05/03/22 11:10 neomycin Allergy Severe RASH Verified 05/03/22 11:10 polymyxin B Allergy Severe Rash Verified 05/03/22 11:10 POLYMYXINBSULF Allergy Severe RASH Uncoded 04/19/22 16:52 Review of Systems Review of Systems: All systems reviewed & are unremarkable except as noted in HPI and below PMFSH Past Medical History Medical History Arthritis Basal cell carcinoma (BCC) on face removed in 2011 CAD (coronary artery disease) CHF (congestive heart failure) Cough CVA (cerebral vascular accident) Cyst of right kidney DDD (degenerative disc disease) Enlarged prostate Farsightedness Foot fracture, left History of stroke with current residual effects HTN (hypertension) Hypercholesteremia Left ear hearing loss Myocardial infarction Renal disease Surgical History Surgical History H/O plastic surgery On ankle for infected dog bite History of cardiac cath History of open heart surgery Hx of CABG Family History Family History Father Congestive heart failure Mother Diabetes mellitus Cerebrovascular accident Sibling Diabetes mellitus Sibling No problems noted. Social History Social History Social History: Patient lives at home with his , Loan, whom he designates as his surrogate MDM. He wishes to be listed as a full code. His PCP is Dr. Kenny. Smoking packs per day: 1 Smoking cigarettes per day: 20.0 Years smoked: 60 Smoking pack-years: 60.00 Smoking status: Light tobacco smoker Tobacco type: cigarettes Second hand tobacco smoke exposure: Yes Additional smoking assessment comments: pt states he is not interested in quitting right now Alcohol intake: never Substance use: never Substance use type: does not use Living arrangements: with family Additional living arrangements comments: Gender identity (if verbalized by the patient): Male Sexual Orientation (if Verbalized by the Patient): Straight or Heterosexual Spiritual care concerns: No Agree to blood products: Yes Exam Narrative: General appearance: Well-developed, well-nourished male looking Skin: Normal color, left lower extremity exam showed below-knee amputation, jose in place, the wound is dry and clean, diffuse tenderness left groin, no swelling, no rash, no mass Head: Normocephalic, nontraumatic Eyes: Clear conjunctiva ENT: Dry oral cavity Neck: Supple, nontender Chest and respiratory: Airway patent, no respiratory distress, no accessory muscle use Heart: Regular rate/rhythm Abdomen: Soft, nontender, no
--- NOTE | 2022-05-03 07:30 | ECG_ITS ---
Measurements Intervals [place] Rate: 76 P: 90 HI: 148 QRS: 12 QRSD: 110 T: 58 QT: 410 QTc: 461 Interpretive Statements SINUS RHYTHM NONSPECIFIC ST & T-WAVE ABNORMALITY COMPARED TO ECG 01/27/2022 10:53:51 NO SIGNIFICANT CHANGES Electronically Signed On 05-03-2022 15:37:55 DELIVERY AIDE by Nu Rivera M.D.
[2022-05-03] MEDS: SODIUM CHLORIDE 0.9% IV 1,000 ML 999 ML ×2 (07:54→08:15)
[2022-05-03 07:59] LABS: Basophils Percent Auto 0.3 % (0.2-1.2); Eosinophils Absolute Auto 0.2 K/mm3 (0-0.3); Eosinophils Percent Auto 2.9 % (0-4.4); Hemoglobin 8.3 g/dL (14.0-18.0); Immature Granulocyte Absolute 0.06 K/mm3 (0.00-0.031); Immature Granulocyte Percent A 0.9 % (0-0.5); Lymphocytes Absolute Auto 0.29 K/mm3 (0.9-3.2); Lymphocytes Percent Auto 4.3 % (18.3-44.2); Mean Corpuscular HGB Conc 31.9 g/dl (32-36); Mean Corpuscular Hemoglobin 31.1 pg (26-34); Mean Corpuscular Volume 97.4 fl (80-100); Mean Platelet Volume 8.7 fl (7.4-10.4); Monocytes Absolute Auto 0.5 K/mm3 (0.1-0.6); Monocytes Percent Auto 7.3 % (2.6-8.5); Neutrophils Absolute Auto 5.8 K/mm3 (1.3-6.7); Neutrophils Percent Auto 84.3 % (45.5-73.1); Platelet Count Result 259 k/mm3 (150-375); Red Blood Count 2.67 M/mm3 (4.6-6.20); Red Cell Distribution Width 17.5 % (11.5-14.5); White Blood Count 6.8 K/mm3 (4.5-10.0)
[2022-05-03 08:11] LABS: Prothrombin Time 21.9 Seconds (11.1-14.7)
[2022-05-03 08:12] LABS: Lactic Acid Reflex 0.8 mmol/L (0.7-2.0); Partial Thromboplastin Time 48.3 SECONDS (22.3-36.8)
[2022-05-03] MEDS: ACETAMINOPHEN 500 MG TABLET 1000 MG PO (08:17)
[2022-05-03 08:27] LABS: Alanine Aminotransferase 29 U/L (6-50); Albumin Level 2.8 g/dL (3.5-5.1); Alkaline Phosphatase 51 U/L (38-126); Anion Gap 3 mmol/L (8-16); Aspartate Amino Transferase 40 U/L (17-59); Bilirubin,Total 0.5 mg/dL (0.2-1.3); Blood Urea Nitrogen 21 mg/dL (9-20); Calcium 8.1 mg/dL (8.4-10.2); Carbon Dioxide 26 mmol/L (22-30); Chloride 103 mmol/L (98-107); Estimated Glomerular Filt Rate > 60; Glucose 100 mg/dL (65-110); Potassium 3.4 mmol/L (3.4-5.0); Sodium 132 mmol/L (137-145)
[2022-05-03 08:35] LABS: SARS-CoV-2 RNA PCR Negative
[2022-05-03 08:35] LABS: Appearance Urine Slightly Cloudy (Clear); Bilirubin Urine Negative (Negative); Blood Urine 3+ (Negative); Color Urine Yellow (Yellow); Glucose Urine UA Negative (Negative); Ketones Urine Negative (Negative); Leukocyte Esterase Ur 2+ LEU/UL (Negative); Nitrate Urine Negative (Negative); Protein Urine 2+ mg/dL (Negative); Urobilinogen Urine 0.2 mg/dL (<2.0)
[2022-05-03 08:41] LABS: CRP 20.2 mg/dL (<1.0)
[2022-05-03 09:44] LABS: Influenza A QL RT-PCR Negative (Negative); Influenza B QL RT-PCR Negative (Negative)
[2022-05-03 10:59] LABS: Bacteria Urine 1+ /hpf; RBC Urine 21-50 /hpf (0-2); Squamous Epithelial Cell Urine Rare /hpf (Few); WBC Clumps Urine Present /HPF; WBC Urine >75 /hpf
[2022-05-03 11:09] LABS: Add Urine Microscopic? YES
--- NOTE | 2022-05-03 13:00 | PM.IMHP ---
H&P: HPI History of Present Illness Date/Time: 05/03/22 13:00 Chief Complaint: Fever. Narrative: This is a pleasant 76-year-old male with history of hypertension, dyslipidemia, coronary artery disease, congestive heart failure, paroxysmal atrial fibrillation, benign prostatic hyperplasia, and peripheral vascular disease who presented to the emergency department via EMS from [facility] for evaluation of a fever. He was admitted to their facility about 5 days ago following a hospitalization at [facility] in [place] in which she had a left [id number] amputation for wet gangrene in the setting of severe vascular disease. He has been doing okay at rehab though over the past 24 hours he has developed a fever up to 102.5? F for which he was sent in for evaluation. Other than body aches with the fevers and phantom pain from his surgery, he has no real complaints. He specifically denies headache, neck ache, sinus congestion, sore throat, cough, nausea, vomiting, diarrhea, and dysuria. He has not noticed any redness or drainage from the surgical site. Blood pressures were stable on arrival to the ED. He had a temperature up to 103? in the ER today. Pertinent labs include a WBC of 6.8, hemoglobin 8.3, hematocrit 26.0, sodium 132, BUN 21, creatinine 0.90, CRP 20.2. Urine was negative for nitrates but positive for leukocyte esterase, 1+ bacteria, WBC, and WBC clumps. He was negative for influenza and COVID. Chest x-ray showed evidence of mild pulmonary edema, no pneumonia. He was started on antibiotics for presumed urinary tract infection he is being admitted in this setting. Review of Systems Review of Systems: Twelve systems were reviewed and are negative except for as per HPI. [facility] Past Medical History Medical History (Updated 05/05/22 @ 00:29 by Ani Willingham PA-C) Arthritis Basal cell carcinoma (BCC) on face removed in 2011 CAD (coronary artery disease) CHF (congestive heart failure) Cough CVA (cerebral vascular accident) Cyst of right kidney DDD (degenerative disc disease) Enlarged prostate Farsightedness Foot fracture, left History of left above knee amputation History of stroke with current residual effects HTN (hypertension) Hypercholesteremia Left ear hearing loss Myocardial infarction Renal disease Surgical History Surgical History H/O plastic surgery On ankle for infected dog bite History of cardiac cath History of open heart surgery Hx of CABG Family History Family History Father Congestive heart failure Mother Diabetes mellitus Cerebrovascular accident Sibling Diabetes mellitus Sibling No problems noted. Social History Social History Social History: Patient lives at home with his , Loan, whom he designates as his surrogate MDM. He wishes to be listed as a full code. His PCP is Dr. Kenny. Smoking packs per day: 1 Smoking cigarettes per day: 20.0 Years smoked: 60 Smoking pack-years: 60.00 Smoking status: Light tobacco smoker Tobacco type: cigarettes Second hand tobacco smoke exposure: Yes Additional smoking assessment comments: pt states he is not interested in quitting right now Alcohol intake: never Substance use: never Substance use type: does not use Lack of Transportation: No Lack of Food: Never True Current Housing: I Have Housing Concerned About Future Housing: No Difficulty Paying Gas/Electric Bills: No Difficulty Paying for Meds: No Currently Unemployed: No Education: Bachelor's Degree Difficulty w/ Childcare or Family Care: No Living arrangements: with family Additional living arrangements comments: Gender identity (if verbalized by the patient): Male Sexual Orientation (if Verbalized by the Patient): Straight
--- NOTE | 2022-05-03 15:00 | PC.NURSE ---
Unable to obtain admission questions information from patient. Patient is a poor historian. Patient continues to answer every question with I don't know but is oriented to self and place. Patient is able to use call light and is continent at this time. Called Loan for help with admission questions and medication reconciliation. No answer. Left voicemail.
--- NOTE | 2022-05-03 15:05 | PC.NURSE ---
This patient, Porfirio Pabon, was admitted to Medical Room 348-01. Patient/family oriented to hospital policies and general routines including ID bracelet, bed and alarms, visiting hours, pain management, procedures, bathroom and other care routines, personal items, smoking policy, room service/diet, and visiting hours. Information on how to activate the Rapid Response Team has been discussed. Patient/Family are encouraged to report perceived risks to care and to ask questions if they do not understand what they are told or what they should do.
[2022-05-03] MEDS: SODIUM CHLORIDE 0.9% IV 1,000 ML 125 ML IV CONT (15:20)
--- NOTE | 2022-05-03 15:58 | PC.NURSE ---
Admission and medication reconciliation obtained from Loan
[2022-05-03] MEDS: SENNOSIDES 8.6 MG TABLET PO (18:27)
[2022-05-03] MEDS: CYCLOBENZAPRINE HCL 10 MG TABLET PO (18:27)
[2022-05-03] MEDS: TAMSULOSIN HCL 0.4 MG CAPSULE PO (18:27)
[2022-05-03] MEDS: DOCUSATE SODIUM 100 MG CAPSULE PO (18:27)
[2022-05-03] MEDS: APIXABAN 5 MG TABLET PO (18:27)
[2022-05-03] MEDS: GABAPENTIN 300 MG CAPSULE PO (18:27)
[2022-05-03] MEDS: MELATONIN 3 MG TABLET PO (21:13)
[2022-05-03] MEDS: carvediloL 3.125 MG TABLET PO (21:13)
[2022-05-03] MEDS: oxyCODONE/ACETAMINOPHEN (*CRX) 5-325 MG TABLET 1 TABLET PO (21:14)
[2022-05-03] MEDS: SODIUM CHLORIDE 0.9% IV 1,000 ML 75 ML IV CONT (23:57)
[2022-05-04] VITALS (8 sets, daily range): BP systolic 105–118; BP diastolic 47–52; PULSE 62–86; RESP 18–20; TEMP 35.8–36.9; O2SAT 96–100; BMI 18.3
[2022-05-04 05:42] LABS: Alanine Aminotransferase 28 U/L (6-50); Albumin Level 2.4 g/dL (3.5-5.1); Alkaline Phosphatase 43 U/L (38-126); Anion Gap 2 mmol/L (8-16); Aspartate Amino Transferase 40 U/L (17-59); Bilirubin,Total 0.4 mg/dL (0.2-1.3); Blood Urea Nitrogen 18 mg/dL (9-20); Calcium 7.4 mg/dL (8.4-10.2); Carbon Dioxide 22 mmol/L (22-30); Chloride 109 mmol/L (98-107); Estimated CRCL calculation 55 ml/min; Estimated Glomerular Filt Rate > 60; Glucose 126 mg/dL (65-110); Magnesium 1.9 mg/dL (1.6-2.3); Potassium 3.2 mmol/L (3.4-5.0); Sodium 133 mmol/L (137-145)
[2022-05-04 05:58] LABS: Basophils Percent Auto 0.3 % (0.2-1.2); Hematocrit 22.7 % (42.0-52.0); Hemoglobin 7.1 g/dL (14.0-18.0); Immature Granulocyte Absolute 0.03 K/mm3 (0.00-0.031); Immature Granulocyte Percent A 0.5 % (0-0.5); Lymphocytes Absolute Auto 0.37 K/mm3 (0.9-3.2); Lymphocytes Percent Auto 6.5 % (18.3-44.2); Mean Corpuscular HGB Conc 31.3 g/dl (32-36); Mean Corpuscular Hemoglobin 29.7 pg (26-34); Monocytes Absolute Auto 0.6 K/mm3 (0.1-0.6); Monocytes Percent Auto 10.3 % (2.6-8.5); Neutrophils Absolute Auto 4.7 K/mm3 (1.3-6.7); Neutrophils Percent Auto 82.4 % (45.5-73.1); Platelet Count Result 200 k/mm3 (150-375); Red Blood Count 2.39 M/mm3 (4.6-6.20); Red Cell Distribution Width 17.5 % (11.5-14.5); White Blood Count 5.7 K/mm3 (4.5-10.0)
[2022-05-04 06:01] LABS: Prealbumin 4.3 mg/dL (17.6-36.0)
[2022-05-04] MEDS: oxyCODONE/ACETAMINOPHEN (*CRX) 5-325 MG TABLET 1 TABLET PO ×2 (07:50→17:53)
--- NOTE | 2022-05-04 09:54 | PM.IMPN ---
Progress Note: A&P Assessment and Plan (1) Fever: Code(s): R50.9 - Fever, unspecified Status: Acute Assessment and Plan: Resolved after starting antibiotics, likely secondary to UTI with bacteremia (2) Abnormal urinalysis: Code(s): R82.90 - Unspecified abnormal findings in urine Status: Acute Assessment and Plan: Blood and urine cultures positive for Gram-negative bacilli, continue Rocephin 2 g daily Repeat blood cultures in 24 hours (3) History of left above knee amputation: Code(s): Z89.612 - Acquired absence of left leg above knee Status: Acute Assessment and Plan: Incision is clean, dry, intact (4) Peripheral vascular disease: Code(s): I73.9 - Peripheral vascular disease, unspecified Status: Acute (5) Normocytic anemia: Code(s): D64.9 - Anemia, unspecified Status: Acute Plan DVT prophylaxis with Eliquis GI prophylaxis not indicated Code status DNR Subjective Date/time seen: 05/04/22 09:54 Interval history: No overnight events noted. No chest pain or shortness of breath. No nausea, vomiting or diarrhea. No fevers or chills. Patient states his pain is much improved from admission. He feels a lot better than when he came in. Review of Systems Review of Systems: 12 point review of systems was assessed and was negative except as noted in the HPI Exam Narrative: General:? No acute distress, alert and oriented per baseline HEENT:?Wearing glasses. PERRL, EOMI. Dry mucous membranes Respiratory:? Clear to auscultation bilaterally Cardiovascular:??Regular rate and rhythm with S1-S2 Gastrointestinal:??Soft, nontender, nondistended Skin:??Warm and dry. Generalized pallor. Scattered bruising of the upper extremities. Extremities:??No cyanosis, clubbing, or right lower extremity edema. He is status post left [id number] amputations.? [place] are in place without evidence of do has this. No significant edema or erythema at the stump site. No palpable fluid collections or drainage noted. Good femoral pulse on the left. No significant lymphadenopathy noted. Psychiatric:??Euthymic, normal affect Objective Data Vital Signs Vital Signs: Vital Signs - 24 hr 05/03/22 10:30 05/03/22 10:01 02/09/23 10:31 Temperature 99.8 F H Pulse Rate 73 73 69 Respiratory Rate 20 13 16 Blood Pressure 117/78 114/49 L 110/51 L Pulse Oximetry 97 96 96 Oxygen Delivery 05/03/22 11:15 05/03/22 11:57 05/03/22 12:00 Temperature 98.3 F Pulse Rate 70 74 Respiratory Rate 16 18 Blood Pressure 101/38 L 123/32 L Pulse Oximetry 97 100 100 Oxygen Delivery Room Air 05/03/22 14:00 05/03/22 16:37 05/03/22 20:22 Temperature 98.0 F 99.5 F Pulse Rate 72 90 Respiratory Rate 18 20 Blood Pressure 120/72 138/63 Pulse Oximetry 100 99 Oxygen Delivery Room Air 05/03/22 21:13 05/03/22 21:15 05/03/22 22:19 Temperature 99.9 F H Pulse Rate 90 90 Respiratory Rate 20 Blood Pressure Pulse Oximetry 99 Oxygen Delivery Room Air 05/03/22 23:56 05/04/22 00:56 05/04/22 05:38 Temperature 100.3 F H 98.4 F 97.6 F Pulse Rate 84 Respiratory Rate 18 Blood Pressure 118/52 L Pulse Oximetry 97 Oxygen Delivery Intake/Output Intake/Output: Intake & Output 05/01/22 05/02/22 05/03/22 05/04/22 23:59 23:59 23:59 23:59 Intake Total 3920 300 Output Total 100 200 Balance 3820 100 Meds/Results Medications: Active Medications Generic Name Dose Route Start Last Admin Trade Name Freq PRN Reason Stop Dose Admin Apixaban 5 mg 05/03/22 18:00 05/03/22 18:27 Apixaban 5 Mg Tablet PO 5 mg BID MANOLO Administration Atorvastatin Calcium 80 mg 05/04/22 09:00 Atorvastatin 40 Mg Tablet PO DAILY MANOLO Carvedilol 3.125 mg 05/03/22 18:25 05/03/22 21:13 Carvedilol 3.125 Mg Tablet PO 3.125 mg BID MANOLO Administration Clopidogrel Bisulfate 75 mg 05/04/22 09:00 Clopidogrel Bisulfate 75 Mg Ta
[2022-05-04] MEDS: POTASSIUM CHLORIDE 20 MEQ PACKET (FOR LIQUID) PO (10:02)
[2022-05-04] MEDS: TAMSULOSIN HCL 0.4 MG CAPSULE PO ×2 (10:02→17:48)
[2022-05-04] MEDS: carvediloL 3.125 MG TABLET PO ×2 (10:02→17:49)
[2022-05-04] MEDS: CLOPIDOGREL BISULFATE 75 MG TABLET PO (10:03)
[2022-05-04] MEDS: GABAPENTIN 300 MG CAPSULE PO ×3 (10:03→17:48)
[2022-05-04] MEDS: FUROSEMIDE 20 MG TABLET PO (10:03)
[2022-05-04] MEDS: SENNOSIDES 8.6 MG TABLET PO ×2 (10:03→17:48)
[2022-05-04] MEDS: APIXABAN 5 MG TABLET PO ×2 (10:03→17:53)
[2022-05-04] MEDS: ATORVASTATIN 40 MG TABLET 80 MG PO (10:04)
[2022-05-04] MEDS: DOCUSATE SODIUM 100 MG CAPSULE PO ×2 (10:04→17:48)
[2022-05-04] MEDS: cefTRIAXone 2 GM in SODIUM CHLORIDE 0.9% IV 100 ML 200 ML IVPB (10:23)
[2022-05-04] MEDS: SODIUM CHLORIDE 0.9% IV 1,000 ML 75 ML IV CONT (15:37)
[2022-05-04] MEDS: MELATONIN 3 MG TABLET PO (20:13)
[2022-05-04] MEDS: CYCLOBENZAPRINE HCL 10 MG TABLET PO (20:13)
[2022-05-05] MEDS: SODIUM CHLORIDE 0.9% IV 1,000 ML 75 ML IV CONT ×2 (04:03→17:11)
[2022-05-05] MEDS: oxyCODONE/ACETAMINOPHEN (*CRX) 5-325 MG TABLET 1 TABLET PO ×3 (04:04→20:31)
[2022-05-05 05:10] VITALS: BP 117/47; PULSE 72; RESP 18; TEMP 37.2; O2SAT 94
[2022-05-05] MEDS: CYCLOBENZAPRINE HCL 10 MG TABLET PO (06:08)
--- NOTE | 2022-05-05 08:42 | PM.IMPN ---
Progress Note: A&P Assessment and Plan (1) Fever: Code(s): R50.9 - Fever, unspecified Status: Acute Assessment and Plan: Resolved after starting antibiotics, likely secondary to UTI with bacteremia Klebsiella ESBL positive in 1 blood culture and urine culture (2) Abnormal urinalysis: Code(s): R82.90 - Unspecified abnormal findings in urine Status: Acute Assessment and Plan: As above, repeat blood cultures in 24-48 hrs after starting ertapenem (3) History of left above knee amputation: Code(s): Z89.612 - Acquired absence of left leg above knee Status: Acute Assessment and Plan: Incision looks a bit erythematous today, will consult surgery to eval incision and make rec regarding staple removal (4) Peripheral vascular disease: Code(s): I73.9 - Peripheral vascular disease, unspecified Status: Acute (5) Normocytic anemia: Code(s): D64.9 - Anemia, unspecified Status: Acute Plan DVT prophylaxis with Eliquis GI prophylaxis not indicated Code status DNR Subjective Date/time seen: 05/05/22 08:42 Interval history: No overnight events noted. No chest pain or shortness of breath. No nausea, vomiting or diarrhea. No fevers or chills. He feels quite weak and tired today. Review of Systems Review of Systems: 12 point review of systems was assessed and was negative except as noted in the HPI Exam Narrative: General:? No acute distress, alert and oriented per baseline, somewhat somnolent, easily arousable HEENT:?Dry mucous membranes Respiratory:? Clear to auscultation bilaterally Cardiovascular:??Regular rate and rhythm with S1-S2 Gastrointestinal:??Soft, nontender, nondistended Skin:??Warm and dry. Generalized pallor. Scattered bruising of the upper extremities. Extremities:??Some erythema noted over incision on left stump where AKA was, jose intact, no drainage, warmth or tenderness noted Psychiatric:??Euthymic, normal affect Objective Data Vital Signs Vital Signs: Vital Signs - 24 hr 05/04/22 10:02 05/04/22 10:00 05/04/22 17:49 Temperature Pulse Rate 75 75 86 Respiratory Rate 18 Blood Pressure Pulse Oximetry 97 Oxygen Delivery Room Air 05/04/22 14:00 05/04/22 20:52 05/04/22 20:15 Temperature 96.5 F L 98.3 F Pulse Rate 62 64 64 Respiratory Rate 20 18 18 Blood Pressure 114/47 L 105/49 L Pulse Oximetry 100 96 96 Oxygen Delivery Room Air 05/05/22 05:10 Temperature 99 F Pulse Rate 72 Respiratory Rate 18 Blood Pressure 117/47 L Pulse Oximetry 94 Oxygen Delivery Intake/Output Intake/Output: Intake & Output 05/02/22 05/03/22 05/04/22 05/05/22 23:59 23:59 23:59 23:59 Intake Total 3920 2000 1240 Output Total 100 850 350 Balance 3820 1150 890 Meds/Results Medications: Active Medications Generic Name Dose Route Start Last Admin Trade Name Freq PRN Reason Stop Dose Admin Apixaban 5 mg 05/03/22 18:00 05/04/22 17:53 Apixaban 5 Mg Tablet PO 5 mg BID MANOLO Administration Atorvastatin Calcium 80 mg 05/04/22 09:00 05/04/22 10:04 Atorvastatin 40 Mg Tablet PO 80 mg DAILY MANOLO Administration Carvedilol 3.125 mg 05/03/22 18:25 05/04/22 17:49 Carvedilol 3.125 Mg Tablet PO 3.125 mg BID MANOLO Administration Clopidogrel Bisulfate 75 mg 05/04/22 09:00 05/04/22 10:03 Clopidogrel Bisulfate 75 Mg Tablet PO 75 mg DAILY MANOLO Administration Cyclobenzaprine HCl 10 mg 05/03/22 17:30 05/05/22 06:08 Cyclobenzaprine Hcl 10 Mg Tablet PO 10 mg Q6-8H PRN Administration Muscle Spasm Docusate Sodium 100 mg 05/03/22 17:45 05/04/22 17:48 Docusate Sodium 100 Mg Capsule PO 100 mg BID MANOLO Administration Furosemide 20 mg 05/04/22 09:00 05/04/22 10:03 Furosemide 20 Mg Tablet PO 20 mg QAM MANOLO Administration Gabapentin 300 mg 05/03/22 17:30 05/04/22 17:48 Gabapentin 300 Mg Capsule PO 300 mg TID MANOLO Administration Sodium Chlor
[2022-05-05 10:00] VITALS: PULSE 63; RESP 20; O2SAT 99
[2022-05-05] MEDS: cefTRIAXone 2 GM in SODIUM CHLORIDE 0.9% IV 100 ML 200 ML IVPB (10:04)
[2022-05-05] MEDS: ATORVASTATIN 40 MG TABLET 80 MG PO (10:06)
[2022-05-05] MEDS: DOCUSATE SODIUM 100 MG CAPSULE PO ×2 (10:06→17:13)
[2022-05-05] MEDS: POTASSIUM CHLORIDE 20 MEQ PACKET (FOR LIQUID) PO (10:06)
[2022-05-05] MEDS: CLOPIDOGREL BISULFATE 75 MG TABLET PO (10:06)
[2022-05-05] MEDS: GABAPENTIN 300 MG CAPSULE PO ×3 (10:06→17:13)
[2022-05-05 10:07] VITALS: PULSE 68
[2022-05-05] MEDS: carvediloL 3.125 MG TABLET PO ×2 (10:07→17:13)
[2022-05-05] MEDS: TAMSULOSIN HCL 0.4 MG CAPSULE PO ×2 (10:07→17:12)
[2022-05-05] MEDS: FUROSEMIDE 20 MG TABLET PO (10:07)
[2022-05-05] MEDS: SENNOSIDES 8.6 MG TABLET PO ×2 (10:07→17:15)
[2022-05-05] MEDS: APIXABAN 5 MG TABLET PO ×2 (10:08→17:13)
[2022-05-05] MEDS: ERTAPENEM 1 GM/NS 50 ML 1 GM/50 ML BAG IVPB (13:42)
[2022-05-05 14:00] VITALS: BP 120/53; PULSE 63; RESP 20; TEMP 36.7; O2SAT 99
[2022-05-05 17:13] VITALS: PULSE 69
[2022-05-05 20:20] VITALS: BP 113/48; PULSE 74; RESP 16; TEMP 36.4; O2SAT 100
[2022-05-05] MEDS: MELATONIN 3 MG TABLET PO (20:29)
[2022-05-06] MEDS: oxyCODONE/ACETAMINOPHEN (*CRX) 5-325 MG TABLET 1 TABLET PO ×3 (02:13→13:20)
[2022-05-06 05:20] VITALS: BP 157/57; PULSE 71; RESP 20; TEMP 36.4; O2SAT 99
[2022-05-06] MEDS: SODIUM CHLORIDE 0.9% IV 1,000 ML 75 ML IV CONT ×2 (06:03→18:11)
--- NOTE | 2022-05-06 09:15 | PM.IMPN ---
Progress Note: A&P Assessment and Plan (1) Fever: Code(s): R50.9 - Fever, unspecified Status: Acute Assessment and Plan: Resolved after starting antibiotics, likely secondary to UTI with bacteremia Klebsiella ESBL positive in 1 blood culture and urine culture (2) Abnormal urinalysis: Code(s): R82.90 - Unspecified abnormal findings in urine Status: Acute Assessment and Plan: As above, repeat blood cultures in 24-48 hrs after starting ertapenem (3) History of left above knee amputation: Code(s): Z89.612 - Acquired absence of left leg above knee Status: Acute Assessment and Plan: Incision looks a bit erythematous today, will consult surgery to eval incision and make rec regarding staple removal (4) Peripheral vascular disease: Code(s): I73.9 - Peripheral vascular disease, unspecified Status: Acute (5) Normocytic anemia: Code(s): D64.9 - Anemia, unspecified Status: Acute Plan DVT prophylaxis with Eliquis GI prophylaxis not indicated Code status DNR Subjective Date/time seen: 05/06/22 09:15 Interval history: No overnight events noted. No chest pain or shortness of breath. No nausea, vomiting or diarrhea. No fevers or chills. Review of Systems Review of Systems: 12 point review of systems was assessed and was negative except as noted in the HPI Exam Narrative: General:? No acute distress, alert and oriented per baseline, somewhat somnolent, easily arousable HEENT:?Dry mucous membranes Respiratory:? Clear to auscultation bilaterally Cardiovascular:??Regular rate and rhythm with S1-S2 Gastrointestinal:??Soft, nontender, nondistended Skin:??Warm and dry. Generalized pallor. Scattered bruising of the upper extremities. Extremities:??Some erythema noted over incision on left stump where AKA was, jose intact, no drainage, warmth or tenderness noted Psychiatric:??Euthymic, normal affect Objective Data Vital Signs Vital Signs: Vital Signs - 24 hr 05/05/22 10:07 05/05/22 14:00 05/05/22 10:00 Temperature 98.0 F Pulse Rate 68 63 63 Respiratory Rate 20 20 Blood Pressure 120/53 L Pulse Oximetry 99 99 Oxygen Delivery Room Air 05/05/22 17:13 05/05/22 20:20 05/06/22 05:20 Temperature 97.6 F 97.6 F Pulse Rate 69 74 71 Respiratory Rate 16 20 Blood Pressure 113/48 L 157/57 H Pulse Oximetry 100 99 Oxygen Delivery Intake/Output Intake/Output: Intake & Output 05/03/22 05/04/22 05/05/22 05/06/22 23:59 23:59 23:59 23:59 Intake Total 3920 2000 3080 1000 Output Total 100 850 800 300 Balance 3820 1150 2280 700 Meds/Results Medications: Active Medications Generic Name Dose Route Start Last Admin Trade Name Freq PRN Reason Stop Dose Admin Apixaban 5 mg 05/03/22 18:00 05/05/22 17:13 Apixaban 5 Mg Tablet PO 5 mg BID MANOLO Administration Atorvastatin Calcium 80 mg 05/04/22 09:00 05/05/22 10:06 Atorvastatin 40 Mg Tablet PO 80 mg DAILY MANOLO Administration Carvedilol 3.125 mg 05/03/22 18:25 05/05/22 17:13 Carvedilol 3.125 Mg Tablet PO 3.125 mg BID MANOLO Administration Clopidogrel Bisulfate 75 mg 05/04/22 09:00 05/05/22 10:06 Clopidogrel Bisulfate 75 Mg Tablet PO 75 mg DAILY MANOLO Administration Cyclobenzaprine HCl 10 mg 05/03/22 17:30 05/05/22 06:08 Cyclobenzaprine Hcl 10 Mg Tablet PO 10 mg Q6-8H PRN Administration Muscle Spasm Docusate Sodium 100 mg 05/03/22 17:45 05/05/22 17:13 Docusate Sodium 100 Mg Capsule PO 100 mg BID MANOLO Administration Furosemide 20 mg 05/04/22 09:00 05/05/22 10:07 Furosemide 20 Mg Tablet PO 20 mg QAM MANOLO Administration Gabapentin 300 mg 05/03/22 17:30 05/05/22 17:13 Gabapentin 300 Mg Capsule PO 300 mg TID MANOLO Administration Sodium Chloride 1,000 mls @ 75 mls/hr 05/03/22 10:15 05/06/22 06:03 Normal Saline Iv IV CONT 75 mls/hr .[id number] MANOLO Administration Ertapenem 1 gm in
[2022-05-06] MEDS: POTASSIUM CHLORIDE 20 MEQ PACKET (FOR LIQUID) PO (09:18)
[2022-05-06] MEDS: ATORVASTATIN 40 MG TABLET 80 MG PO (09:19)
[2022-05-06 09:20] VITALS: PULSE 70; PULSE 71; RESP 18; O2SAT 99
[2022-05-06] MEDS: carvediloL 3.125 MG TABLET PO ×2 (09:20→18:09)
[2022-05-06] MEDS: CLOPIDOGREL BISULFATE 75 MG TABLET PO (09:20)
[2022-05-06] MEDS: SENNOSIDES 8.6 MG TABLET PO ×2 (09:21→18:08)
[2022-05-06] MEDS: GABAPENTIN 300 MG CAPSULE PO ×3 (09:21→18:09)
[2022-05-06] MEDS: TAMSULOSIN HCL 0.4 MG CAPSULE PO ×2 (09:21→18:10)
[2022-05-06] MEDS: APIXABAN 5 MG TABLET PO (09:21)
[2022-05-06] MEDS: DOCUSATE SODIUM 100 MG CAPSULE PO ×2 (09:21→18:09)
[2022-05-06] MEDS: FUROSEMIDE 20 MG TABLET PO (09:21)
--- NOTE | 2022-05-06 09:23 | PM.IMPN ---
Progress Note: A&P Assessment and Plan (1) Fever: Code(s): R50.9 - Fever, unspecified Status: Acute Assessment and Plan: Sepsis fom UTI/bacteremia, on ertapenem, started May 05 Resolved after starting antibiotics, likely secondary to UTI with bacteremia Klebsiella ESBL positive in one blood culture and urine culture PCT quite elevated at 10.1, recheck pending (2) Abnormal urinalysis: Code(s): R82.90 - Unspecified abnormal findings in urine Status: Acute Assessment and Plan: As above, repeat blood cultures in 24-48 hrs after starting ertapenem (3) History of left above knee amputation: Code(s): Z89.612 - Acquired absence of left leg above knee Status: Acute Assessment and Plan: Dana 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 Incision looks a bit erythematous today, will consult surgery to eval incision and make rec regarding staple removal No leukocytosis to suggest infection, he is on ertapenem for UTI/bacteremia (4) Peripheral vascular disease: Code(s): I73.9 - Peripheral vascular disease, unspecified Status: Acute (5) Normocytic anemia: Code(s): D64.9 - Anemia, unspecified Status: Acute Assessment and Plan: Hold eliquis today, cont aspirin + plavix for now, check iron studies, FOBT May need imaging of surgical site to rule out hematoma Plan DVT prophylaxis with Eliquis--on hold for now d/t drop in hgb GI prophylaxis not indicated Code status DNR Subjective Date/time seen: 05/06/22 09:23 Interval history: Patient resting comfortably, feels a little bit chilly and slightly weak, but better than yesterday. No overnight events noted. No chest pain or shortness of breath. No nausea, vomiting or diarrhea. No fevers. Review of Systems Review of Systems: 12 point review of systems was assessed and was negative except as noted in the HPI Exam Narrative: General:? No acute distress, alert and oriented per baseline, patient states he feels quite chilled today HEENT:?Dry mucous membranes Respiratory:? Clear to auscultation bilaterally Cardiovascular:??Regular rate and rhythm with S1-S2 Gastrointestinal:??Soft, nontender, nondistended Skin:??Warm and dry. Generalized pallor. Scattered bruising of the upper extremities. Extremities:??Less erythema noted over incision on left stump where AKA was, jose intact, minimal serosanguineous drainage, no warmth or tenderness noted Psychiatric:??Euthymic, normal affect Objective Data Vital Signs Vital Signs: Vital Signs - 24 hr 05/05/22 10:07 05/05/22 14:00 05/05/22 10:00 Temperature 98.0 F Pulse Rate 68 63 63 Respiratory Rate 20 20 Blood Pressure 120/53 L Pulse Oximetry 99 99 Oxygen Delivery Room Air 05/05/22 17:13 05/05/22 20:20 05/06/22 05:20 Temperature 97.6 F 97.6 F Pulse Rate 69 74 71 Respiratory Rate 16 20 Blood Pressure 113/48 L 157/57 H Pulse Oximetry 100 99 Oxygen Delivery 05/06/22 09:20 Temperature Pulse Rate 70 Respiratory Rate Blood Pressure Pulse Oximetry Oxygen Delivery Intake/Output Intake/Output: Intake & Output 05/03/22 05/04/22 05/05/22 05/06/22 23:59 23:59 23:59 23:59 Intake Total 3920 2000 3080 1000 Output Total 100 850 800 300 Balance 3820 1150 2280 700 Meds/Results Medications: Active Medications Generic Name Dose Route Start Last Admin Trade Name Freq PRN Reason Stop Dose Admin Apixaban 5 mg 05/03/22 18:00 05/06/22 09:21 Apixaban 5 Mg Tablet PO 5 mg BID MANOLO Administration Atorvastatin Calcium 80 mg 05/04/22 09:00 05/06/22 09:19 Atorvastatin 40 Mg Tablet PO 80 mg DAILY MANOLO Administration Carvedilol 3.125 mg 05/03/22 18:25 05/06/22 09:20 Carvedilol 3.125 Mg Tablet PO 3.125 mg BID MANOLO Administration Clopidogrel Bisulfate 75 mg 05/04/22 09:00 05/06/22 09:20 Clopidogrel Bisulfate 75 Mg Tablet PO 75 mg DAILY [facility] Administ
--- NOTE | 2022-05-06 10:21 | PM.CNGS ---
Assessment and Plan Assessment and plan (1) History of left above knee amputation: Code(s): Z89.612 - Acquired absence of left leg above knee Status: Acute Assessment and Plan: wound looks to be healing well, no s/s active infection, will need to f/u c surgeon that did the procedure for staple removal and further postop instruction, no acute surgical issues, will s/o, call c ?s, issues (2) Fever: Code(s): R50.9 - Fever, unspecified Status: Acute Assessment and Plan: likely from UTI, cont abx per primary team History of Present Illness Consult details Consult date: 05/06/22 Reason for consult: wound care Requesting physician: Jessica Young DO Narrative: The pt is a 76 y/o M c multiple med issues, including severe PVD, CAD, presenting from rehab for fevers. Pt found to have likely urosepsis at time of admit. Pt was in rehab recovering from recent L AKA for gangrene, PVD. This procedure was done at OSH approximately a wk ago according to the pt. Surgery consulted for wound care recs. Review of Systems Constitutional: Constitutional: Reports as per HPI, Denies anorexia, Reports chills, Reports fatigue, Reports fever(s), Reports lethargy, Reports night sweats, Reports poor appetite, Reports weakness, Denies weight gain and Denies weight loss Eyes: Eyes: Reports no additional eye complaints ENT: Reports system reviewed and no additional complaints, except as documented Cardiovascular: Cardiovascular: Reports no additional cardiovascular complaints Respiratory: Respiratory: Reports no additional respiratory complaints Gastrointestinal: Gastrointestinal: Reports no additional gastrointestinal complaints Genitourinary: Genitourinary: Reports no additional male genitourinary complaints Musculoskeletal: Musculoskeletal: Reports as per HPI Integumentary/Breasts: Skin/Breast: Reports system reviewed and no additional complaints, except as docu Neurologic: Reports system reviewed and no additional complaints, except as documented Psychiatric: Psychiatric: Reports no additional psychiatric complaints Endocrine: Endocrine: Reports no additional endocrine complaints Hematologic/Lymphatic: Hematologic/Lymphatic: Reports no additional hematologic/lymphatic complaints Allergic/Immunologic: Allergic/Immunologic: Reports no additional allergic/immunologic complaints PMFSH Past Medical History Medical History Arthritis Basal cell carcinoma (BCC) on face removed in 2011 CAD (coronary artery disease) CHF (congestive heart failure) Cough CVA (cerebral vascular accident) Cyst of right kidney DDD (degenerative disc disease) Enlarged prostate Farsightedness Foot fracture, left History of left above knee amputation History of stroke with current residual effects HTN (hypertension) Hypercholesteremia Left ear hearing loss Myocardial infarction Renal disease Surgical History Surgical History H/O plastic surgery On ankle for infected dog bite History of cardiac cath History of open heart surgery Hx of CABG Family History Family History Father Congestive heart failure Mother Diabetes mellitus Cerebrovascular accident Sibling Diabetes mellitus Sibling No problems noted. Social History Social History Social History: Patient lives at home with his , Loan, whom he designates as his surrogate MDM. He wishes to be listed as a full code. His PCP is Dr. Kenny. Smoking packs per day: 1 Smoking cigarettes per day: 20.0 Years smoked: 60 Smoking pack-years: 60.00 Smoking status: Light tobacco smoker Tobacco type: cigarettes Second hand tobacco smoke exposure: Yes Additional smoking assessment comments: pt states he
[2022-05-06 10:36] LABS: CRP 17.5 mg/dL (<1.0)
[2022-05-06 10:37] LABS: Iron 11 ug/dL (49-181)
[2022-05-06 10:46] LABS: Percent Iron Saturation 5 % (20-50)
[2022-05-06 10:50] LABS: Procalcitonin 4.6 ng/mL
[2022-05-06] MEDS: ERTAPENEM 1 GM/NS 50 ML 1 GM/50 ML BAG IVPB (13:13)
[2022-05-06 14:30] VITALS: BP 145/58; PULSE 71; RESP 18; TEMP 36.6; O2SAT 99
[2022-05-06 18:09] VITALS: PULSE 91
[2022-05-06] MEDS: HYDROcodone/acetaminophen (*CRX) 5-325 MG TABLET 1 TAB PO (18:15)
[2022-05-06 20:00] VITALS: PULSE 91; RESP 18; O2SAT 99
[2022-05-06] MEDS: MELATONIN 3 MG TABLET PO (20:13)
[2022-05-06 21:54] VITALS: BP 128/80; PULSE 80; RESP 20; TEMP 36.6; O2SAT 96
[2022-05-07] VITALS (7 sets, daily range): BP systolic 126–147; BP diastolic 53–78; PULSE 70–84; RESP 16–20; TEMP 36.4–36.7; O2SAT 96–97
[2022-05-07] MEDS: ACETAMINOPHEN 500 MG TABLET PO ×2 (06:35→13:24)
[2022-05-07] MEDS: SODIUM CHLORIDE 0.9% IV 1,000 ML 75 ML IV CONT ×2 (06:35→19:28)
--- NOTE | 2022-05-07 08:11 | PM.IMPN ---
Progress Note: A&P Assessment and Plan (1) Fever: Code(s): R50.9 - Fever, unspecified Status: Acute Assessment and Plan: Sepsis from UTI/bacteremia, on ertapenem, started May 05 Resolved after starting antibiotics, likely secondary to UTI with bacteremia Klebsiella ESBL positive in one blood culture and urine culture, repeat blood cultures NGTD Will need midline placed and 10 day course of IV abx, starting date 05/05, end date 05/14 PCT 10.1 on 05/03, recheck down to 4.6 on 05/07 CRP 20.2 on 05/03, recheck down to 17.5 today 05/07 (2) Abnormal urinalysis: Code(s): R82.90 - Unspecified abnormal findings in urine Status: Acute Assessment and Plan: As above, repeat blood cultures NGTD (3) History of left above knee amputation: Code(s): Z89.612 - Acquired absence of left leg above knee Status: Acute Assessment and Plan: 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 No leukocytosis to suggest infection, he is on ertapenem for UTI/bacteremia General surgery consulted for stabple removal and incision eval due to erythema, they state that patient should f/u with the original surgeon to have jose removed, and incision appears non infected (4) Peripheral vascular disease: Code(s): I73.9 - Peripheral vascular disease, unspecified Status: Acute Assessment and Plan: as above, s/p L AKA (5) Normocytic anemia: Code(s): D64.9 - Anemia, unspecified Status: Acute Assessment and Plan: Hgb continues to drop, hold eliquis, monitor closely, transfuse if less than 7, recheck pending this afternoon Severe iron deficiency anemia noted, will consult hematology for possible iron infusions Plan DVT prophylaxis with Eliquis--on hold for now d/t drop in hgb GI prophylaxis not indicated Code status DNR Subjective Date/time seen: 05/07/22 08:11 Interval history: Patient resting comfortably, still feels weak and chilled, about the same as yesterday. No overnight events noted. No chest pain or shortness of breath. No nausea, vomiting or diarrhea. No fevers. Review of Systems Review of Systems: 12 point review of systems was assessed and was negative except as noted in the HPI Exam Narrative: General:? No acute distress, alert and oriented per baseline, patient states he feels weak and a little chilly HEENT:?Dry mucous membranes Respiratory:? Clear to auscultation bilaterally Cardiovascular:??Regular rate and rhythm with S1-S2 Gastrointestinal:??Soft, nontender, nondistended Skin:??Warm and dry. Generalized pallor. Scattered bruising of the upper extremities. Extremities:??Less erythema noted over incision on left stump where AKA was, jose intact, minimal serosanguineous drainage, no warmth or tenderness noted Psychiatric:??Euthymic, normal affect Objective Data Vital Signs Vital Signs: Vital Signs - 24 hr 05/06/22 09:20 05/06/22 14:30 05/06/22 09:20 Temperature 97.8 F Pulse Rate 70 71 71 Respiratory Rate 18 18 Blood Pressure 145/58 H Pulse Oximetry 99 99 Oxygen Delivery Room Air 05/06/22 18:09 05/06/22 20:00 05/06/22 21:54 Temperature 97.9 F Pulse Rate 91 91 80 Respiratory Rate 18 20 Blood Pressure 128/80 Pulse Oximetry 99 96 Oxygen Delivery Room Air 05/07/22 06:00 Temperature 97.9 F Pulse Rate 80 Respiratory Rate 20 Blood Pressure 128/78 Pulse Oximetry 96 Oxygen Delivery Intake/Output Intake/Output: Intake & Output 05/04/22 05/05/22 05/06/22 05/07/22 23:59 23:59 23:59 23:59 Intake Total 1999 3130 3380 1000 Output Total 850 800 500 700 Balance 1150 2330 2880 300 Meds/Results Medications: Active Medications Generic Name Dose Route Start Last Admin Trade Name Freq PRN Reason Stop Dose Admin Acetaminophen 500 mg 05/06/22 17:02 05/07/22 06:35 Acetaminophen 500 Mg Tablet PO 500 mg Q6H PRN Administration Mild Pain (1-3) or Fever H
[2022-05-07] MEDS: POTASSIUM CHLORIDE 20 MEQ PACKET (FOR LIQUID) PO (09:15)
[2022-05-07] MEDS: polyethylene glycoL 3350 17 GM POWD.PACK PO (09:15)
[2022-05-07] MEDS: DOCUSATE SODIUM 100 MG CAPSULE PO ×2 (09:16→16:57)
[2022-05-07] MEDS: CLOPIDOGREL BISULFATE 75 MG TABLET PO (09:16)
[2022-05-07] MEDS: carvediloL 3.125 MG TABLET PO ×2 (09:16→16:56)
[2022-05-07] MEDS: SENNOSIDES 8.6 MG TABLET PO ×2 (09:17→16:57)
[2022-05-07] MEDS: GABAPENTIN 300 MG CAPSULE PO ×3 (09:17→16:57)
[2022-05-07] MEDS: FUROSEMIDE 20 MG TABLET PO (09:17)
[2022-05-07] MEDS: ATORVASTATIN 40 MG TABLET 80 MG PO (09:18)
[2022-05-07] MEDS: TAMSULOSIN HCL 0.4 MG CAPSULE PO ×2 (09:18→16:57)
[2022-05-07] MEDS: ERTAPENEM 1 GM/NS 50 ML 1 GM/50 ML BAG IVPB (13:16)
[2022-05-07 16:00] LABS: Basophils Percent Auto 0.4 % (0.2-1.2); Eosinophils Absolute Auto 0.1 K/mm3 (0-0.3); Eosinophils Percent Auto 1.5 % (0-4.4); Hematocrit 24.1 % (42.0-52.0); Hemoglobin 7.4 g/dL (14.0-18.0); Immature Granulocyte Absolute 0.03 K/mm3 (0.00-0.031); Immature Granulocyte Percent A 0.6 % (0-0.5); Lymphocytes Percent Auto 8.5 % (18.3-44.2); Mean Corpuscular HGB Conc 30.7 g/dl (32-36); Mean Corpuscular Hemoglobin 30.1 pg (26-34); Mean Platelet Volume 9.2 fl (7.4-10.4); Monocytes Absolute Auto 0.5 K/mm3 (0.1-0.6); Monocytes Percent Auto 9.5 % (2.6-8.5); Neutrophils Absolute Auto 3.8 K/mm3 (1.3-6.7); Neutrophils Percent Auto 79.5 % (45.5-73.1); Platelet Count Result 230 k/mm3 (150-375); Red Blood Count 2.46 M/mm3 (4.6-6.20); Red Cell Distribution Width 17.7 % (11.5-14.5); White Blood Count 4.7 K/mm3 (4.5-10.0)
[2022-05-07] MEDS: POTASSIUM CHLORIDE 20 MEQ TABLET 40 MEQ PO (16:54)
[2022-05-07] MEDS: MELATONIN 3 MG TABLET PO (20:26)
[2022-05-07] MEDS: CYCLOBENZAPRINE HCL 10 MG TABLET PO (20:26)
[2022-05-08] MEDS: ACETAMINOPHEN 500 MG TABLET PO ×3 (02:00→18:23)
[2022-05-08 06:00] VITALS: BP 122/59; PULSE 76; RESP 16; TEMP 36.7; O2SAT 97
[2022-05-08] MEDS: SODIUM CHLORIDE 0.9% IV 1,000 ML 75 ML IV CONT ×2 (06:07→18:23)
[2022-05-08] MEDS: CYCLOBENZAPRINE HCL 10 MG TABLET PO ×2 (06:07→19:59)
[2022-05-08 08:39] VITALS: PULSE 76
[2022-05-08] MEDS: GABAPENTIN 300 MG CAPSULE PO ×3 (08:39→18:24)
[2022-05-08] MEDS: carvediloL 3.125 MG TABLET PO ×2 (08:39→18:24)
[2022-05-08] MEDS: CLOPIDOGREL BISULFATE 75 MG TABLET PO (08:40)
[2022-05-08] MEDS: ATORVASTATIN 40 MG TABLET 80 MG PO (08:40)
[2022-05-08] MEDS: DOCUSATE SODIUM 100 MG CAPSULE PO ×2 (08:40→18:24)
[2022-05-08] MEDS: SENNOSIDES 8.6 MG TABLET PO ×2 (08:40→18:24)
[2022-05-08] MEDS: FUROSEMIDE 20 MG TABLET PO (08:40)
[2022-05-08] MEDS: POTASSIUM CHLORIDE 20 MEQ PACKET (FOR LIQUID) PO (08:40)
[2022-05-08] MEDS: TAMSULOSIN HCL 0.4 MG CAPSULE PO ×2 (08:40→18:23)
[2022-05-08] MEDS: ERTAPENEM 1 GM/NS 50 ML 1 GM/50 ML BAG IVPB (13:42)
[2022-05-08] MEDS: COLLAGENASE OINT 30 GM TUBE 1 APPLIC TOPICAL (13:42)
[2022-05-08] MEDS: SALINE LOCK FLUSH 10 ML IV PUSH ×2 (13:43→22:12)
[2022-05-08 14:00] VITALS: BP 131/79; PULSE 69; RESP 18; TEMP 36.6; O2SAT 99
[2022-05-08 15:14] LABS: IFOB Positive Control Positive; Immunochemical Fecal Occult Bl Positive (N)
--- NOTE | 2022-05-08 15:16 | PM.IMPN ---
Progress Note: A&P Assessment and Plan (1) Fever: Code(s): R50.9 - Fever, unspecified Status: Acute Assessment and Plan: Sepsis from UTI/bacteremia, on ertapenem Fever resolved after starting antibiotics, likely secondary to UTI with bacteremia Klebsiella ESBL positive in one blood culture and urine culture, repeat blood cultures NGTD Midline placed today to complete 10 day course of IV abx, starting date 05/05, end date 05/14 PCT 10.1 on 05/03, recheck down to 4.6 on 05/07 CRP 20.2 on 05/03, recheck down to 17.5 on 05/07 (2) Abnormal urinalysis: Code(s): R82.90 - Unspecified abnormal findings in urine Status: Acute Assessment and Plan: As above, repeat blood cultures NGTD (3) History of left above knee amputation: Code(s): Z89.612 - Acquired absence of left leg above knee Status: Acute Assessment and Plan: 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 No leukocytosis to suggest infection, he is on ertapenem for UTI/bacteremia General surgery consulted for stabple removal and incision eval due to erythema, they state that patient should f/u with the original surgeon to have jose removed, and incision appears non infected (4) Peripheral vascular disease: Code(s): I73.9 - Peripheral vascular disease, unspecified Status: Acute Assessment and Plan: as above, s/p L AKA (5) Normocytic anemia: Code(s): D64.9 - Anemia, unspecified Status: Acute Assessment and Plan: Hgb continues to drop, hold eliquis, monitor closely, transfuse if less than 7, recheck pending this afternoon Severe iron deficiency anemia noted, will consult hematology for possible iron infusions Plan DVT prophylaxis with Eliquis--on hold for now d/t drop in hgb, if hemoglobin is stable tomorrow 05/09 I would restart this GI prophylaxis not indicated Code status DNR Subjective Date/time seen: 05/08/22 15:16 Interval history: No overnight events noted. No chest pain or shortness of breath. No nausea, vomiting or diarrhea. No fevers. No complaints today, feels a little better than yesterday. Getting midline placed right now. Review of Systems Review of Systems: 12 point review of systems was assessed and was negative except as noted in the HPI Exam Narrative: General:? No acute distress, alert and oriented per baseline HEENT:?Dry mucous membranes Respiratory:? Clear to auscultation bilaterally Cardiovascular:??Regular rate and rhythm with S1-S2 Gastrointestinal:??Soft, nontender, nondistended Skin:??Warm and dry. Generalized pallor. Scattered bruising of the upper extremities. Extremities:??Less erythema noted over incision on left stump where AKA was, jose intact, minimal serosanguineous drainage, no warmth or tenderness noted Psychiatric:??Euthymic, normal affect Objective Data Vital Signs Vital Signs: Vital Signs - 24 hr 05/07/22 16:56 05/07/22 20:00 05/07/22 21:11 Temperature 98.0 F Pulse Rate 84 84 76 Respiratory Rate 16 16 Blood Pressure 126/60 Pulse Oximetry 97 97 Oxygen Delivery Room Air 05/08/22 06:00 05/08/22 08:39 05/08/22 08:00 Temperature 98.0 F Pulse Rate 76 76 Respiratory Rate 16 Blood Pressure 122/59 L Pulse Oximetry 97 Oxygen Delivery Room Air 05/08/22 14:00 Temperature 97.9 F Pulse Rate 69 Respiratory Rate 18 Blood Pressure 131/79 Pulse Oximetry 99 Oxygen Delivery Intake/Output Intake/Output: Intake & Output 05/05/22 05/06/22 05/07/22 05/08/22 23:59 23:59 23:59 23:59 Intake Total 3130 3380 3545 1480 Output Total 001 018 2957 725 Balance 2330 2880 1970 755 Meds/Results Medications: Active Medications Generic Name Dose Route Start Last Admin Trade Name Freq PRN Reason Stop Dose Admin Acetaminophen 500 mg 05/06/22 17:02 05/08/22 08:46 Acetaminophen 500 Mg Tablet PO 500 mg Q6H PRN Administration Mild Pain (1-3) or Fever Hydr
[2022-05-08 15:44] LABS: Basophils Percent Auto 0.3 % (0.2-1.2); Eosinophils Absolute Auto 0.1 K/mm3 (0-0.3); Eosinophils Percent Auto 1.9 % (0-4.4); Hematocrit 25.4 % (42.0-52.0); Hemoglobin 7.8 g/dL (14.0-18.0); Immature Granulocyte Absolute 0.05 K/mm3 (0.00-0.031); Immature Granulocyte Percent A 0.9 % (0-0.5); Lymphocytes Absolute Auto 0.39 K/mm3 (0.9-3.2); Lymphocytes Percent Auto 6.6 % (18.3-44.2); Mean Corpuscular HGB Conc 30.7 g/dl (32-36); Mean Corpuscular Volume 97.7 fl (80-100); Mean Platelet Volume 9.2 fl (7.4-10.4); Monocytes Absolute Auto 0.4 K/mm3 (0.1-0.6); Monocytes Percent Auto 6.6 % (2.6-8.5); Neutrophils Absolute Auto 4.9 K/mm3 (1.3-6.7); Neutrophils Percent Auto 83.7 % (45.5-73.1); Platelet Count Result 310 k/mm3 (150-375); Red Cell Distribution Width 17.9 % (11.5-14.5); White Blood Count 5.9 K/mm3 (4.5-10.0)
[2022-05-08 15:53] LABS: Alanine Aminotransferase 29 U/L (6-50); Albumin Level 2.3 g/dL (3.5-5.1); Alkaline Phosphatase 58 U/L (38-126); Anion Gap 1 mmol/L (8-16); Aspartate Amino Transferase 33 U/L (17-59); Bilirubin,Total 0.3 mg/dL (0.2-1.3); Blood Urea Nitrogen 14 mg/dL (9-20); Calcium 7.5 mg/dL (8.4-10.2); Carbon Dioxide 23 mmol/L (22-30); Chloride 116 mmol/L (98-107); Estimated CRCL calculation 58 ml/min; Estimated Glomerular Filt Rate > 60; Glucose 111 mg/dL (65-110); Potassium 3.5 mmol/L (3.4-5.0); Sodium 140 mmol/L (137-145)
[2022-05-08 18:24] VITALS: PULSE 69
--- NOTE | 2022-05-08 19:00 | PDONCCN ---
HPI - Date of Consult Date/Time: 05/08/22 19:00 Requesting Physician: Darius Griffith MD Primary Care Provider: Som Kenny MD - Consult Narrative Reason for consult: Iron deficiency anemia Narrative: Porfirio Pabon is a 76 year old male with history of hypertension, coronary artery disease, congestive heart failure, atrial fibrillation and peripheral vascular disease came into the hospital with fever. He was admitted to [facility] 5 days ago after having left AKA done for wet gangrene with severe peripheral vascular disease. He denies any melena hematochezia. He denies any abdominal pain. His labs showed hemoglobin of 8.3 now down to 7.8. Other labs showed normal kidney function and low iron level of 11 with iron saturation of 5%. He denies any melena hematochezia. He denies any previous stomach surgeries. He has been eating poorly. Hemoccult stool came back positive. He denies any recent colonoscopy. Eliquis has been placed on hold due to anemia but patient continues to take Plavix. Review of Systems - Review of Systems All systems reviewed & are unremarkable except as noted in HPI and bel - Neurologic Reports system reviewed and no additional complaints, except as documented, Reports weakness PMFSH Medical History: Medical History (Last Reviewed 05/06/22 @ 10:26 by Sybil Amin MD) Arthritis Basal cell carcinoma (BCC) on face removed in 2011 CAD (coronary artery disease) CHF (congestive heart failure) Cough CVA (cerebral vascular accident) Cyst of right kidney DDD (degenerative disc disease) Enlarged prostate Farsightedness Foot fracture, left History of left above knee amputation History of stroke with current residual effects HTN (hypertension) Hypercholesteremia Left ear hearing loss Myocardial infarction Renal disease Surgical History: Surgical History (Last Updated 05/07/22 @ 07:39 by Som Kenny MD) H/O plastic surgery On ankle for infected dog bite History of cardiac cath History of open heart surgery Hx of AKA (above knee amputation) left Hx of CABG Family History: Family History (Last Reviewed 05/06/22 @ 10:26 by Sybil Amin MD) Father Congestive heart failure Mother Diabetes mellitus Cerebrovascular accident Sibling Diabetes mellitus Sibling No problems noted. - Social History Social History: Social History (Last Reviewed 05/06/22 @ 10:26 by Sybil Amin MD) Gender Identity: Gender identity (if verbalized by the patient): Male Sexual Orientation: Sexual Orientation (if Verbalized by the Patient): Straight or Heterosexual Alcohol Use: Alcohol intake: never Substance Use: Substance use: never Substance use type: does not use Others: Spiritual care concerns: No Agree to blood products: Yes Living Arrangements: Living arrangements: with family Smoking Status: Smoking status: Light tobacco smoker Tobacco type: cigarettes Second hand tobacco smoke exposure: Yes Smoking Pack-years: Smoking packs per day: 1 Smoking cigarettes per day: 20.0 Years smoked: 60 Smoking pack-years: 60.00 Comments: Additional smoking assessment comments: pt states he is not interested in quitting right now Social Determinants of Health: Has the Lack of Transportation Kept You From Medical Appointments or From Getting Medications?: No Within the Past 12 Months, Were You Worried Whether Your Food Would Run Out Before You Got Money to Buy More?: Never True What is Your Housing Situation Today?: I Have Housing Are You Worried That in the Next 2 Months, You May Not Have Your Own Housing to Live In?: No Do You Have Trouble Paying Your Heating Or Electricity Bill?: No Do You Have Trouble Paying For Medicines?: No Are You Currently Unemployed and Looking for Work?: No Highest Level of Education
[2022-05-08 20:00] VITALS: PULSE 69; RESP 18; O2SAT 99
[2022-05-08] MEDS: MELATONIN 3 MG TABLET PO (20:00)
[2022-05-08] MEDS: IRON SUCROSE COMPLEX 500 MG in SODIUM CHLORIDE 0.9% IV 250 ML 78.57 MG IVPB (20:00)
[2022-05-08 22:00] VITALS: BP 124/59; PULSE 68; RESP 18; TEMP 36.6; O2SAT 97
[2022-05-08] MEDS: AMITRIPTYLINE HCL 25 MG TABLET PO (22:12)
[2022-05-09] MEDS: ACETAMINOPHEN 500 MG TABLET PO ×3 (02:13→17:02)
[2022-05-09] MEDS: CYCLOBENZAPRINE HCL 10 MG TABLET PO ×2 (05:11→19:32)
[2022-05-09] MEDS: SALINE LOCK FLUSH 10 ML IV PUSH ×3 (05:12→20:07)
[2022-05-09 05:44] LABS: Basophils Percent Auto 0.3 % (0.2-1.2); Eosinophils Absolute Auto 0.2 K/mm3 (0-0.3); Eosinophils Percent Auto 2.5 % (0-4.4); Hematocrit 24.3 % (42.0-52.0); Hemoglobin 7.5 g/dL (14.0-18.0); Immature Granulocyte Absolute 0.06 K/mm3 (0.00-0.031); Immature Granulocyte Percent A 0.8 % (0-0.5); Lymphocytes Absolute Auto 0.48 K/mm3 (0.9-3.2); Lymphocytes Percent Auto 6.6 % (18.3-44.2); Mean Corpuscular HGB Conc 30.9 g/dl (32-36); Mean Corpuscular Hemoglobin 29.6 pg (26-34); Mean Platelet Volume 9.3 fl (7.4-10.4); Monocytes Absolute Auto 0.5 K/mm3 (0.1-0.6); Monocytes Percent Auto 6.2 % (2.6-8.5); Neutrophils Percent Auto 83.6 % (45.5-73.1); Platelet Count Result 330 k/mm3 (150-375); Red Blood Count 2.53 M/mm3 (4.6-6.20); White Blood Count 7.2 K/mm3 (4.5-10.0)
[2022-05-09 05:52] LABS: Alanine Aminotransferase 26 U/L (6-50); Albumin Level 2.2 g/dL (3.5-5.1); Alkaline Phosphatase 61 U/L (38-126); Anion Gap 2 mmol/L (8-16); Aspartate Amino Transferase 23 U/L (17-59); Bilirubin,Total 0.4 mg/dL (0.2-1.3); Blood Urea Nitrogen 14 mg/dL (9-20); Calcium 7.6 mg/dL (8.4-10.2); Carbon Dioxide 22 mmol/L (22-30); Chloride 116 mmol/L (98-107); Estimated CRCL calculation 58 ml/min; Estimated Glomerular Filt Rate > 60; Glucose 98 mg/dL (65-110); Potassium 3.1 mmol/L (3.4-5.0); Sodium 140 mmol/L (137-145)
[2022-05-09 06:00] VITALS: BP 124/59; PULSE 64; RESP 18; TEMP 36.7; O2SAT 97
[2022-05-09] MEDS: POTASSIUM CHLORIDE 20 MEQ TABLET 40 MEQ PO (08:53)
[2022-05-09 08:54] VITALS: PULSE 64
[2022-05-09] MEDS: GABAPENTIN 300 MG CAPSULE PO ×3 (08:54→17:00)
[2022-05-09] MEDS: carvediloL 3.125 MG TABLET PO ×2 (08:54→17:00)
[2022-05-09] MEDS: POTASSIUM CHLORIDE 20 MEQ PACKET (FOR LIQUID) PO (08:54)
[2022-05-09] MEDS: CLOPIDOGREL BISULFATE 75 MG TABLET PO (08:54)
[2022-05-09] MEDS: ATORVASTATIN 40 MG TABLET 80 MG PO (08:54)
[2022-05-09] MEDS: TAMSULOSIN HCL 0.4 MG CAPSULE PO ×2 (08:54→17:00)
[2022-05-09] MEDS: FUROSEMIDE 20 MG TABLET PO (08:54)
[2022-05-09] MEDS: COLLAGENASE OINT 30 GM TUBE 1 APPLIC TOPICAL (08:55)
[2022-05-09] MEDS: SODIUM CHLORIDE 0.9% IV 1,000 ML 75 ML IV CONT (08:55)
[2022-05-09] MEDS: ERTAPENEM 1 GM/NS 50 ML 1 GM/50 ML BAG IVPB (12:38)
[2022-05-09 14:54] VITALS: BP 162/67; PULSE 69; RESP 18; TEMP 36; O2SAT 90
--- NOTE | 2022-05-09 16:40 | PM.IMPN ---
Progress Note: A&P Assessment and Plan (1) Urinary tract infection: Code(s): N39.0 - Urinary tract infection, site not specified Status: Acute Assessment and Plan: Sepsis from UTI/bacteremia, on ertapenem Fever resolved after starting antibiotics, likely secondary to UTI with bacteremia Klebsiella ESBL positive in one blood culture and urine culture, repeat blood cultures NGTD Midline placed to complete 10 day course of IV abx, starting date 05/05, end date 05/14 PCT 10.1 on 05/03, recheck down to 4.6 on 05/07 CRP 20.2 on 05/03, recheck down to 17.5 on 05/07 (2) Fever: Code(s): R50.9 - Fever, unspecified Status: Acute Assessment and Plan: As above (3) History of left above knee amputation: Code(s): Z89.612 - Acquired absence of left leg above knee Status: Acute Assessment and Plan: Left AKA 04/24/22 for wet gangrene d/t severe vascular disease No leukocytosis but with fever and elevated CRP. Suspect related to the UTI with septicemia for which he is on ertapenem for General surgery consulted for staple removal and incision eval due to erythema but only mild erythema and no drainage noted today. Appreciate their input. (4) Peripheral vascular disease: Code(s): I73.9 - Peripheral vascular disease, unspecified Status: Acute Assessment and Plan: as above, s/p L AKA Continue Lipitor; hold Plavix until seen by GI (5) Normocytic anemia: Code(s): D64.9 - Anemia, unspecified Status: Acute Assessment and Plan: Hgbwas in the 8 range post operatively but has drifted down into the 7 range. Iron studies consistent with iron deficiency. Stool guaiac positive. Eliquis held. Appreciate Hematology input. GI consult. Check B12/folate. Add protonix to cover for stress gastritis. Plan DVT prophylaxis with Eliquis--on hold for now d/t drop in hgb and guaiac positive stools Code status DNR Subjective Date/time seen: 05/09/22 16:40 Interval history: 76yo male with PAD s/p Left AKA, HTN and AFib here for fever. Assuming care. Chart reviewed. Patient slept well. No chest pain or shortness of breath. Denies fevers. Eating okay. No nausea or vomiting. Exam Narrative: AF 162/67 69 18 90% ra Gen - NARD lying almost flat in bed Chest - Few scattered rhonchi otherwise clear. CV - RRR S1/S2 Abd - Soft, NT/ND, Positive BS Ext - No right pedal edema. Left AKA. jose in place. Minimal erythema noted at the stump site. No drainage. Psych - Nml mood and affect Skin - Warm and dry Objective Data Vital Signs Vital Signs: Vital Signs - 24 hr 05/08/22 18:24 05/08/22 20:00 05/08/22 22:00 Temperature 97.9 F Pulse Rate 69 69 68 Respiratory Rate 18 18 Blood Pressure 124/59 L Pulse Oximetry 99 97 Oxygen Delivery Room Air 05/09/22 06:00 05/09/22 08:54 05/09/22 08:30 Temperature 98.0 F Pulse Rate 64 64 Respiratory Rate 18 Blood Pressure 124/59 L Pulse Oximetry 97 Oxygen Delivery Room Air 05/09/22 14:54 Temperature 96.8 F L Pulse Rate 69 Respiratory Rate 18 Blood Pressure 162/67 H Pulse Oximetry 90 Oxygen Delivery Intake/Output Intake/Output: Intake & Output 05/06/22 05/07/22 05/08/22 05/09/22 23:59 23:59 23:59 23:59 Intake Total 3380 3545 3545 1410 Output Total 500 1575 1375 100 Balance 2880 1970 2170 1310 Meds/Results Medications: Active Medications Generic Name Dose Route Start Last Admin Trade Name Freq PRN Reason Stop Dose Admin Acetaminophen 500 mg 05/06/22 17:02 05/09/22 08:53 Acetaminophen 500 Mg Tablet PO 500 mg Q6H PRN Administration Mild Pain (1-3) or Fever Hydrocodone Bitart/Acetaminophen 1 tab 05/06/22 17:02 05/06/22 18:15 Hydrocodone/Acetaminophen (*Crx) 5-325 Mg Tablet PO 1 tab Q4H PRN Administration Pain Rated 4-6 Amitriptyline HCl 25 mg 05/08/22 21:00 05/08/22 22:12 Amitriptyline Hcl 25 Mg Tablet PO 25 mg
[2022-05-09 17:00] VITALS: PULSE 69
[2022-05-09 20:00] VITALS: PULSE 69; RESP 18; O2SAT 90
[2022-05-09] MEDS: AMITRIPTYLINE HCL 25 MG TABLET PO (20:06)
[2022-05-09] MEDS: MELATONIN 3 MG TABLET PO (20:07)
[2022-05-09 20:46] VITALS: BP 108/61; PULSE 67; RESP 18; TEMP 36.8; O2SAT 95
[2022-05-09] MEDS: PANTOPRAZOLE SODIUM IV 40 MG VIAL IV PUSH (21:34)
[2022-05-10 05:10] VITALS: BP 144/87; PULSE 74; RESP 18; TEMP 36.6; O2SAT 98
[2022-05-10] MEDS: SALINE LOCK FLUSH 10 ML IV PUSH ×3 (05:22→20:18)
[2022-05-10] MEDS: CYCLOBENZAPRINE HCL 10 MG TABLET PO ×2 (05:22→20:19)
[2022-05-10 05:37] LABS: Basophils Percent Auto 0.4 % (0.2-1.2); Eosinophils Absolute Auto 0.2 K/mm3 (0-0.3); Hematocrit 25.6 % (42.0-52.0); Hemoglobin 7.9 g/dL (14.0-18.0); Immature Granulocyte Absolute 0.14 K/mm3 (0.00-0.031); Lymphocytes Absolute Auto 0.48 K/mm3 (0.9-3.2); Lymphocytes Percent Auto 6.8 % (18.3-44.2); Mean Corpuscular HGB Conc 30.9 g/dl (32-36); Mean Corpuscular Hemoglobin 29.4 pg (26-34); Mean Corpuscular Volume 95.2 fl (80-100); Mean Platelet Volume 9.3 fl (7.4-10.4); Monocytes Absolute Auto 0.4 K/mm3 (0.1-0.6); Monocytes Percent Auto 5.9 % (2.6-8.5); Neutrophils Absolute Auto 5.8 K/mm3 (1.3-6.7); Neutrophils Percent Auto 81.9 % (45.5-73.1); Platelet Count Result 395 k/mm3 (150-375); Red Blood Count 2.69 M/mm3 (4.6-6.20); Red Cell Distribution Width 18.1 % (11.5-14.5); White Blood Count 7.1 K/mm3 (4.5-10.0)
[2022-05-10 06:07] LABS: Alanine Aminotransferase 25 U/L (6-50); Albumin Level 2.2 g/dL (3.5-5.1); Alkaline Phosphatase 68 U/L (38-126); Anion Gap 3 mmol/L (8-16); Aspartate Amino Transferase 28 U/L (17-59); Bilirubin,Total 0.4 mg/dL (0.2-1.3); Blood Urea Nitrogen 13 mg/dL (9-20); Calcium 7.7 mg/dL (8.4-10.2); Carbon Dioxide 22 mmol/L (22-30); Chloride 118 mmol/L (98-107); Estimated CRCL calculation 60 ml/min; Estimated Glomerular Filt Rate > 60; Glucose 93 mg/dL (65-110); Magnesium 1.8 mg/dL (1.6-2.3); Phosphorus 3.9 mg/dL (2.5-4.5); Potassium 3.2 mmol/L (3.4-5.0); Sodium 143 mmol/L (137-145)
[2022-05-10 07:24] LABS: Folic Acid 5.2 ng/mL (2.76->20)
[2022-05-10] MEDS: POTASSIUM CHLORIDE 20 MEQ PACKET (FOR LIQUID) PO (09:45)
[2022-05-10] MEDS: ATORVASTATIN 40 MG TABLET 80 MG PO (09:45)
[2022-05-10 09:46] VITALS: PULSE 74
[2022-05-10] MEDS: PANTOPRAZOLE SODIUM IV 40 MG VIAL IV PUSH ×2 (09:46→20:17)
[2022-05-10] MEDS: GABAPENTIN 300 MG CAPSULE PO ×3 (09:46→17:01)
[2022-05-10] MEDS: ACETAMINOPHEN 500 MG TABLET PO (09:46)
[2022-05-10] MEDS: TAMSULOSIN HCL 0.4 MG CAPSULE PO ×2 (09:46→17:02)
[2022-05-10] MEDS: FUROSEMIDE 20 MG TABLET PO (09:46)
[2022-05-10] MEDS: carvediloL 3.125 MG TABLET PO ×2 (09:46→17:01)
[2022-05-10] MEDS: COLLAGENASE OINT 30 GM TUBE 1 APPLIC TOPICAL (09:47)
--- NOTE | 2022-05-10 11:24 | PCNFU ---
Nutrition Follow-Up Complete: Inadequate Oral Intake as related to UTI as evidenced by poor po intake. Goal: Adequate Intake of at least 75% of meals/supplement Patient is progressing towards goal. We will continue current goal. Pt current nutrition is Heart Healthy with Stanislav BID and Ensure Compact BID. Last recorded weight is 68 kg. Bowel Motility:+BM reported 05/09 Labs Reviewed:K 3.2,Alb 2.2, Hgb 7.9, Hct 25.6 Meds Noted:Lasix,Protonix Skin: unstageable PU-sacrum Additional Notes: Patient remains on heart healthy diet. Blood in stool noted. GI consult. Plans for clear liquids and NPO after midnight. Oral Intake has been poor 10-25% of meals. Encouraged PO intake today. Protein Modular of Stanislav providing an additional 90 kcals and 2.5 gms protein. Ensure Compact BID providing 220 kcals and [address] will monitor every 5 days.
--- NOTE | 2022-05-10 11:48 | WPDGICN ---
Assessment and Plan Assessment and plan (1) Anemia: Code(s): D64.9 - Anemia, unspecified Status: Acute Assessment and Plan: hemoglobin has dropped from 14.2-7.9. A stool Hemoccult is positive although he is on apixaban for atrial fibrillation (2) Above knee amputation of left lower extremity: Code(s): S78.112A - Complete traumatic amputation at level between left hip and knee, initial encounter Status: Acute (3) Blood in stool: Code(s): K92.1 - Melena Status: Acute Assessment and Plan: he has been found to be Hemoccult positive. he has been on apixaban And clopidogrel for peripheral vascular disease. will be scheduled for endoscopy and colonoscopy to be done tomorrow (4) Personal history of colonic polyps: Code(s): Z86.010 - Personal history of colonic polyps Status: Acute Assessment and Plan: not quite 6 years ago he had removal of 3 polyps due for colonoscopy which will be done tomorrow (5) Sepsis: Code(s): A41.9 - Sepsis, unspecified organism Status: Acute Assessment and Plan: he apparently had a urinary tract infection and also may have infection from recent surgery although the stump does not look infected GI Consult Note Consult date/time: 05/10/22 11:48 HPI: Porfirio Pabon is a 76 year old male Who had been in the rehab unit following a left above the knee amputation for gangrene. He was admitted here on May 03 due to fever and suspected sepsis. Temperature was 103? on admission. He has been persistently anemic. Initial hemoglobin is 8.3. Is now 7.9. His hemoglobin was over 14 less than 2 years ago. He denies seeing blood his stools but he has been found to have a positive stool Hemoccult. Review of Systems Review of Systems: All systems reviewed & are unremarkable except as noted in HPI and below PMFSH Past Medical History Medical History Arthritis Basal cell carcinoma (BCC) on face removed in 2011 CAD (coronary artery disease) CHF (congestive heart failure) Cough CVA (cerebral vascular accident) Cyst of right kidney DDD (degenerative disc disease) Enlarged prostate Farsightedness Foot fracture, left History of left above knee amputation History of stroke with current residual effects HTN (hypertension) Hypercholesteremia Left ear hearing loss Myocardial infarction Renal disease Surgical History Surgical History H/O plastic surgery On ankle for infected dog bite History of cardiac cath History of open heart surgery Hx of AKA (above knee amputation) left Hx of CABG Family History Family History Father Congestive heart failure Mother Diabetes mellitus Cerebrovascular accident Sibling Diabetes mellitus Sibling No problems noted. Social History Social History Social History: Patient lives at home with his , Loan, whom he designates as his surrogate MDM. He wishes to be listed as a full code. His PCP is Dr. Kenny. Smoking packs per day: 1 Smoking cigarettes per day: 20.0 Years smoked: 60 Smoking pack-years: 60.00 Smoking status: Light tobacco smoker Tobacco type: cigarettes Second hand tobacco smoke exposure: Yes Additional smoking assessment comments: pt states he is not interested in quitting right now Alcohol intake: never Substance use: never Substance use type: does not use Lack of Transportation: No Lack of Food: Never True Current Housing: I Have Housing Concerned About Future Housing: No Difficulty Paying Gas/Electric Bills: No Difficulty Paying for Meds: No Currently Unemployed: No Education: Bachelor's Degree Difficulty w/ Childcare or Family Care: No L
[2022-05-10] MEDS: ERTAPENEM 1 GM/NS 50 ML 1 GM/50 ML BAG IVPB (12:43)
[2022-05-10 14:09] VITALS: BP 120/65; PULSE 93; RESP 18; TEMP 36.3; O2SAT 93
--- NOTE | 2022-05-10 14:30 | PM.IMPN ---
Progress Note: A&P Assessment and Plan (1) Sepsis: Code(s): A41.9 - Sepsis, unspecified organism Status: Acute Assessment and Plan: Sepsis from UTI/bacteremia with ESBL Klebsiella positive in one blood culture and urine culture Fever resolved after starting antibiotics. WBC normal Repeat blood cultures NGTD. Midline placed to complete 10 day course of IV abx, starting date 05/05, end date 05/14 PCT 10.1 on 05/03, recheck down to 4.6 on 05/07 CRP 20.2 on 05/03, recheck down to 8 on 05/10 Continue current iV abx. (2) Urinary tract infection: Code(s): N39.0 - Urinary tract infection, site not specified Status: Acute Assessment and Plan: As above (3) Normocytic anemia: Code(s): D64.9 - Anemia, unspecified Status: Acute Assessment and Plan: Hgbwas in the 8 range post operatively but has drifted down into the 7 range. Iron studies consistent with iron deficiency. Stool guaiac positive. Eliquis held. Appreciate Hematology input. B12 low end of normal. Contineu PPI. Replace B12. GI consulted wit plans for EGD/colonoscopy. Follow up on results (4) History of left above knee amputation: Code(s): Z89.612 - Acquired absence of left leg above knee Status: Acute Assessment and Plan: Left AKA 04/24/22 for wet gangrene d/t severe vascular disease No leukocytosis but with fever and elevated CRP felt more likely related to the UTI with septicemia for which he is on ertapenem for Only scant erythema and no drainage noted from the wound Has an unstageable sacral wound. Do not feel this is the source of sepsis. Appreciate wound care input. Continue routine wound care. PT/OT. (5) Peripheral vascular disease: Code(s): I73.9 - Peripheral vascular disease, unspecified Status: Acute Assessment and Plan: as above, s/p L AKA Continue Lipitor; Plavix on hold Plan DVT prophylaxis with Eliquis--on hold for now d/t drop in hgb and guaiac positive stools; SCDs to right Code status DNR Subjective Date/time seen: 05/10/22 14:30 Interval history: 76yo male with PAD s/p Left AKA, HTN and AFib here for fever. No problems overnight. No chest pain or shortness of breath. No nausea or vomiting. He is not eating very much. He states because the food does not taste good. Exam Narrative: AF 144/87 74 18 98% ra Gen - NARD sitiing up in bed Chest - CTA bilaterally. nml RR CV - RRR S1/S2 Abd - Soft, NT/ND, Positive BS Back -sacral edema noted Ext - trace right pedal edema. Left AKA. jose in place. Scant erythema noted at the stump site. No drainage. Psych - Nml mood and affect Skin - Warm and dry Objective Data Vital Signs Vital Signs: Vital Signs - 24 hr 05/09/22 14:54 05/09/22 17:00 05/09/22 20:00 Temperature 96.8 F L Pulse Rate 69 69 69 Respiratory Rate 18 18 Blood Pressure 162/67 H Pulse Oximetry 90 90 Oxygen Delivery Room Air 05/09/22 20:46 05/10/22 05:10 05/10/22 09:46 Temperature 98.2 F 97.9 F Pulse Rate 67 74 74 Respiratory Rate 18 18 Blood Pressure 108/61 144/87 H Pulse Oximetry 95 98 Oxygen Delivery 05/10/22 09:30 05/10/22 11:34 Temperature Pulse Rate Respiratory Rate Blood Pressure Pulse Oximetry Oxygen Delivery Room Air Room Air Intake/Output Intake/Output: Intake & Output 05/07/22 05/08/22 05/09/22 05/10/22 23:59 23:59 23:59 23:59 Intake Total 3545 3545 1530 0 Output Total 1575 1375 200 300 Balance 1970 2170 1330 -300 Meds/Results Medications: Active Medications Generic Name Dose Route Start Last Admin Trade Name Freq PRN Reason Stop Dose Admin Acetaminophen 500 mg 05/06/22 17:02 05/10/22 09:46 Acetaminophen 500 Mg Tablet PO 500 mg Q6H PRN Administration Mild Pain (1-3) or Fever Hydrocodone Bitart/Acetaminophen 1 tab 05/06/22 17:02 05/06/22 18:15 Hydrocodone/Acetaminophen (*Crx) 5-325 Mg Tablet PO 1 tab Q4H PRN Adm
[2022-05-10] MEDS: POTASSIUM CHLORIDE 20 MEQ TABLET 40 MEQ PO (15:10)
[2022-05-10] MEDS: CYANOCOBALAMIN INJ 1,000 MCG/ML VIAL 1000 MCG IM (15:10)
[2022-05-10] MEDS: MAGNESIUM SULF 2 GM/WATER 50ML 2 GM/50 ML BAG IVPB (15:11)
[2022-05-10] MEDS: BISACODYL 5 MG TABLET EC 10 MG PO ×2 (16:06→20:17)
[2022-05-10] MEDS: polyethylene glycoL 3350 238 GM BOTTLE PO (16:06)
[2022-05-10 17:01] VITALS: PULSE 93
[2022-05-10] MEDS: DOCUSATE SODIUM 100 MG CAPSULE PO (17:01)
[2022-05-10] MEDS: SENNOSIDES 8.6 MG TABLET PO (17:02)
[2022-05-10 20:04] VITALS: BP 155/67; PULSE 75; RESP 18; TEMP 36.6; O2SAT 98
[2022-05-10] MEDS: AMITRIPTYLINE HCL 25 MG TABLET PO (20:17)
[2022-05-10] MEDS: MELATONIN 3 MG TABLET PO (20:18)
[2022-05-11] VITALS (9 sets, daily range): BP systolic 137–164; BP diastolic 61–75; PULSE 71–79; RESP 15–22; TEMP 35.9–36.6; O2SAT 92–100
[2022-05-11] MEDS: BISACODYL 5 MG TABLET EC 10 MG PO (02:14)
[2022-05-11] MEDS: HYDROcodone/acetaminophen (*CRX) 5-325 MG TABLET 1 TAB PO ×2 (05:41→17:36)
[2022-05-11] MEDS: SALINE LOCK FLUSH 10 ML IV PUSH ×3 (05:43→20:49)
[2022-05-11] MEDS: SALINE LOCK FLUSH 20 ML IV PUSH (05:44)
[2022-05-11 06:00] LABS: Basophils Percent Auto 0.3 % (0.2-1.2); Eosinophils Absolute Auto 0.2 K/mm3 (0-0.3); Hematocrit 26.9 % (42.0-52.0); Hemoglobin 8.3 g/dL (14.0-18.0); Immature Granulocyte Percent A 1.1 % (0-0.5); Lymphocytes Absolute Auto 0.59 K/mm3 (0.9-3.2); Lymphocytes Percent Auto 6.3 % (18.3-44.2); Mean Corpuscular HGB Conc 30.9 g/dl (32-36); Mean Corpuscular Hemoglobin 29.9 pg (26-34); Mean Corpuscular Volume 96.8 fl (80-100); Mean Platelet Volume 9.1 fl (7.4-10.4); Monocytes Absolute Auto 0.5 K/mm3 (0.1-0.6); Monocytes Percent Auto 4.9 % (2.6-8.5); Neutrophils Absolute Auto 8.1 K/mm3 (1.3-6.7); Neutrophils Percent Auto 85.4 % (45.5-73.1); Platelet Count Result 463 k/mm3 (150-375); Red Blood Count 2.78 M/mm3 (4.6-6.20); Red Cell Distribution Width 18.2 % (11.5-14.5); White Blood Count 9.4 K/mm3 (4.5-10.0)
[2022-05-11 06:25] LABS: Albumin Level 2.6 g/dL (3.5-5.1); Anion Gap 5 mmol/L (8-16); Blood Urea Nitrogen 11 mg/dL (9-20); Calcium 7.9 mg/dL (8.4-10.2); Carbon Dioxide 22 mmol/L (22-30); Chloride 116 mmol/L (98-107); Estimated CRCL calculation 66 ml/min; Estimated Glomerular Filt Rate > 60; Glucose 105 mg/dL (65-110); Phosphorus 3.6 mg/dL (2.5-4.5); Potassium 3.3 mmol/L (3.4-5.0); Sodium 143 mmol/L (137-145)
--- NOTE | 2022-05-11 07:40 | PM.IMPN ---
Progress Note: A&P Assessment and Plan (1) Sepsis: Code(s): A41.9 - Sepsis, unspecified organism Status: Acute Assessment and Plan: Sepsis from UTI/bacteremia with positive BCx (1of2) and positive urine culture with ESBL Klebsiella Fever resolved after starting antibiotics. WBC normal. Repeat blood cultures NGTD. Midline placed to complete 10 day course of IV abx, starting date 05/05, end date 05/14 PCT 10.1 on 05/03, recheck down to 4.6 on 05/07 CRP 20.2 on 05/03, recheck down to 8 on 05/10 Continue current IV abx. (2) Urinary tract infection: Code(s): N39.0 - Urinary tract infection, site not specified Status: Acute Assessment and Plan: As above (3) Normocytic anemia: Code(s): D64.9 - Anemia, unspecified Status: Acute Assessment and Plan: Hgb was in the 8 range post operatively but has drifted down into the 7 range. Iron studies consistent with iron deficiency. Stool guaiac positive. Eliquis held. Appreciate Hematology input. B12 low end of normal. Continue PPI. Replace B12. GI consulted with plans for EGD/colonoscopy. Follow up on results (4) History of left above knee amputation: Code(s): Z89.612 - Acquired absence of left leg above knee Status: Acute Assessment and Plan: Left AKA 04/24/22 for wet gangrene d/t severe vascular disease No leukocytosis but with fever and elevated CRP felt more likely related to the UTI with septicemia for which he is on ertapenem for Only scant erythema and no drainage noted from the wound now Has an unstageable sacral wound. Do not feel this is the source of sepsis. Appreciate wound care input. Continue routine wound care. PT/OT. (5) Peripheral vascular disease: Code(s): I73.9 - Peripheral vascular disease, unspecified Status: Acute Assessment and Plan: as above, s/p L AKA Continue Lipitor; Plavix on hold Plan Dysphagia - staff note the patient has difficulty swallowing at times. Will consult speech therapy. DVT prophylaxis with Eliquis--on hold for now d/t drop in hgb and guaiac positive stools; SCDs to right Code status DNR Subjective Date/time seen: 05/11/22 07:40 Interval history: 76yo male with PAD s/p Left AKA, HTN and AFib here for fever. No issues overnight. He slept off and on. He complains of left phantom foot pain. No chest pain or shortness of breath. is available in states the patient had colonoscopy 6 years ago with 3 polyps removed. She also mentions that the patient has a abdominal aneurysm. Patient having difficulty swallowing per staff. Exam Narrative: AF 150/68 79 18 95% ra Gen - NARD sitting up in bed Chest - Mild by base inspiratory crackles. Normal respiratory rate. CV - RRR S1/S2 Abd - Soft, NT/ND, Positive BS Ext - trace right pedal edema. Left AKA. jose in place. Scant erythema noted at the stump site. No drainage. Psych - Nml mood and affect Skin - Warm and dry Objective Data Vital Signs Vital Signs: Vital Signs - 24 hr 05/10/22 09:46 05/10/22 09:30 05/10/22 11:34 Temperature Pulse Rate 74 Respiratory Rate Blood Pressure Pulse Oximetry Oxygen Delivery Room Air Room Air 05/10/22 14:09 05/10/22 17:01 05/10/22 20:04 Temperature 97.4 F L 98 F Pulse Rate 93 93 75 Respiratory Rate 18 18 Blood Pressure 120/65 155/67 H Pulse Oximetry 93 98 Oxygen Delivery 05/11/22 04:21 Temperature 97.9 F Pulse Rate 79 Respiratory Rate 18 Blood Pressure 150/68 H Pulse Oximetry 95 Oxygen Delivery Intake/Output Intake/Output: Intake & Output 05/08/22 05/09/22 05/10/22 05/11/22 23:59 23:59 23:59 23:59 Intake Total 3545 1530 1100 350 Output Total 1375 200 750 Balance 2170 1330 350 350 Meds/Results Medications: Active Medications Generic Name Dose Route Start Last Admin Trade Name Freq PRN Reason Stop Dose Admin Acetaminophen 500 mg 05/06/22 17:02 05/10/22 09:46
[2022-05-11] MEDS: CYANOCOBALAMIN 1,000 MCG TABLET 1000 MCG PO (09:01)
[2022-05-11] MEDS: GABAPENTIN 300 MG CAPSULE PO ×2 (09:01→17:36)
[2022-05-11] MEDS: ATORVASTATIN 40 MG TABLET 80 MG PO (09:01)
[2022-05-11] MEDS: DOCUSATE SODIUM 100 MG CAPSULE PO ×2 (09:02→17:36)
[2022-05-11] MEDS: FUROSEMIDE 20 MG TABLET PO (09:02)
[2022-05-11] MEDS: SENNOSIDES 8.6 MG TABLET PO ×2 (09:02→17:32)
[2022-05-11] MEDS: PANTOPRAZOLE SODIUM IV 40 MG VIAL IV PUSH ×2 (09:02→20:48)
[2022-05-11] MEDS: TAMSULOSIN HCL 0.4 MG CAPSULE PO ×2 (09:02→17:32)
[2022-05-11] MEDS: carvediloL 3.125 MG TABLET PO ×2 (09:04→17:32)
[2022-05-11] MEDS: COLLAGENASE OINT 30 GM TUBE 1 APPLIC TOPICAL (09:05)
[2022-05-11 11:15] LABS: Glucose Point of Care 100 mg/dl (65-105)
[2022-05-11] MEDS: ERTAPENEM 1 GM/NS 50 ML 1 GM/50 ML BAG IVPB (12:00)
--- NOTE | 2022-05-11 12:41 | PCPTNOTE ---
Attempted PT evaluation, pt leaving the floor for a procedure at this time. Will follow.
--- NOTE | 2022-05-11 12:43 | PC.NURSE ---
Pt off floor for EGD/colonoscopy
--- NOTE | 2022-05-11 12:49 | WPDANESEPPF ---
Anes - Initial Pre Proc Eval Procedure: Operation Date: 05/11/22 13:45 Proposed Procedures p Esophagogastroduodenoscopy & Colonoscopy - Alfonso Jennings MD Date/Time: 05/11/22 12:49 Surgeon: Darius Griffith MD Pre Op Diagnosis: urinary tract infection Patient Data Age: 76 Gender: M Height: 1.85 m Weight: 67.4 kg Last Vital Signs Temp 36.6 C 05/11/22 04:21 Pulse 79 05/11/22 09:04 Resp 18 05/11/22 04:21 BP 150/68 H 05/11/22 04:21 Pulse Ox 95 05/11/22 04:21 O2 Del Method Room Air 05/10/22 11:34 Allergies Allergy/AdvReac Type Severity Reaction Status Date / Time Aminoglycosides Allergy Severe RASH Verified 05/03/22 11:10 bacitracin Allergy Severe Rash Verified 05/03/22 11:10 neomycin Allergy Severe RASH Verified 05/03/22 11:10 polymyxin B Allergy Severe Rash Verified 05/03/22 11:10 POLYMYXINBSULF Allergy Severe RASH Uncoded 04/19/22 16:52 Home Medications Medication Instructions Recorded Confirmed Type rosuvastatin 20 mg tablet 40 mg PO DAILY 06/15/19 05/03/22 History apixaban 5 mg tablet 5 mg PO BID #60 tabs 03/10/21 05/03/22 Rx clopidogrel 75 mg tablet (Plavix) 75 mg PO DAILY #90 tabs 11/20/21 05/03/22 Rx furosemide 20 mg tablet 20 mg PO QAM #90 tabs 11/20/21 05/03/22 Rx carvedilol 12.5 mg tablet 3.125 mg PO BID 01/19/22 05/03/22 History tamsulosin 0.4 mg capsule 0.4 mg PO BID 01/19/22 05/03/22 History acetaminophen 325 mg tablet 325 mg PO PRN PRN Pain 05/03/22 05/03/22 History atorvastatin 80 mg tablet 80 mg PO DAILY 05/03/22 05/03/22 History cyclobenzaprine 10 mg tablet 10 mg PO Q6-8H 05/03/22 05/03/22 History docusate sodium 100 mg capsule 100 mg PO BID 05/03/22 05/03/22 History gabapentin 300 mg capsule 300 mg PO TID 05/03/22 05/03/22 History melatonin 3 mg tablet 3 mg PO HS 05/03/22 05/03/22 History oxycodone-acetaminophen 5 mg-325 5 - 325 tablet PO Q4-5H PRN Pain 05/03/22 05/03/22 History mg tablet polyethylene glycol 3350 17 gram 17 g PO PRN PRN Constipation 05/03/22 05/03/22 History oral powder packet (Miralax) potassium chloride 20 mEq oral 20 meq PO DAILY 05/03/22 05/03/22 History packet sennosides 8.6 mg tablet (senna) 8.6 mg PO BID 05/03/22 05/03/22 History Laboratory Tests 05/11/22 05/11/22 05/11/22 05:53 05:53 11:12 WBC 9.4 K/mm3 K/mm3 (4.5-10.0) RBC 2.78 M/mm3 L M/mm3 (4.6-6.20) Hgb 8.3 g/dL L g/dL (14.0-18.0) Hct 26.9 % L % (42.0-52.0) MCV 96.8 fl fl (80-100) MCH 29.9 pg pg (26-34) MCHC 30.9 g/dl L g/dl (32-36) RDW 18.2 % H % (11.5-14.5) Plt Count 463 k/mm3 H k/mm3 (150-375) MPV 9.1 fl fl (7.4-10.4) Immature Gran % (Auto) 1.1 % H % (0-0.5) Neut % (Auto) 85.4 % H % (45.5-73.1) Lymph % (Auto) 6.3 % L % (18.3-44.2) Nolan % (Auto) 4.9 % % (2.6-8.5) Eos % (Auto) 2.0 % % (0-4.4) Baso % (Auto) 0.3 % % (0.2-1.2) Lymph # (Auto) 0.59 K/mm3 L K/mm3 (0.9-3.2) Nolan # (Auto) 0.5 K/mm3 K/mm3 (0.1-0.6) Eos # (Auto) 0.2 K/mm3 K/mm3 (0-0.3) Baso # (Auto) 0.0 K/mm3 K/mm3 (0.0-0.1) Abs Immat Gran (auto) 0.10 K/mm3 H K/mm3 (0.00-0.031) Absolute Neuts (auto) 8.1 K/mm3 H K/mm3 (1.3-6.7) Absolute Nucleated RBC 0.0 K/mm3 K/mm3 (0.0-0.012) Nucleated RBC % 0.0 % % (0.0-0.2) Sodium 143 mmol/L mmol/L (137-145) Potassium 3.3 mmol/L L mmol/L (3.4-5.0) Chloride 116 mmol/L H mmol/L (98-107) Carbon Dioxide 22 mmol/L mmol/L (22-30) Anion Gap 5 mmol/L L mmol/L (8-16) BUN 11 mg/dL mg/dL (9-20) Creatinine 0.80 mg/dL mg/dL (0.7-1.3) Estim Creat Clear Calc 66 ml/min ml/min Estimated GFR > 60 (59 - ) Glucose 105 mg/dL mg/dL (65-110) POC Capillary Glucose 100 mg/dl mg/dl (65-105)
[2022-05-11] MEDS: LACTATED RINGERS 1,000 ML 150 ML IV CONT (13:01)
--- NOTE | 2022-05-11 13:36 | SUR.OPER ---
egd ended 1327 colonoscopy started 133
--- NOTE | 2022-05-11 16:30 | PCSTNOTE ---
Please refer to the Bedside Swallow Evaluation in the EMR. Please note, silent aspiration cannot be ruled out at bedside.
[2022-05-11] MEDS: POTASSIUM CHLORIDE 20 MEQ PACKET (FOR LIQUID) 40 MEQ PO (17:37)
[2022-05-11] MEDS: AMITRIPTYLINE HCL 25 MG TABLET PO (20:48)
[2022-05-11] MEDS: MELATONIN 3 MG TABLET PO (20:48)
[2022-05-12 05:58] VITALS: BP 149/75; PULSE 83; RESP 20; TEMP 36.5; O2SAT 98
[2022-05-12 06:23] LABS: Basophils Percent Auto 0.2 % (0.2-1.2); Eosinophils Absolute Auto 0.2 K/mm3 (0-0.3); Eosinophils Percent Auto 1.4 % (0-4.4); Immature Granulocyte Absolute 0.14 K/mm3 (0.00-0.031); Immature Granulocyte Percent A 1.1 % (0-0.5); Lymphocytes Absolute Auto 0.56 K/mm3 (0.9-3.2); Lymphocytes Percent Auto 4.5 % (18.3-44.2); Mean Corpuscular HGB Conc 30.8 g/dl (32-36); Mean Corpuscular Hemoglobin 30.4 pg (26-34); Mean Corpuscular Volume 98.9 fl (80-100); Mean Platelet Volume 8.9 fl (7.4-10.4); Monocytes Absolute Auto 0.7 K/mm3 (0.1-0.6); Monocytes Percent Auto 5.7 % (2.6-8.5); Neutrophils Absolute Auto 10.9 K/mm3 (1.3-6.7); Neutrophils Percent Auto 87.1 % (45.5-73.1); Platelet Count Result 463 k/mm3 (150-375); Red Blood Count 2.63 M/mm3 (4.6-6.20); Red Cell Distribution Width 18.7 % (11.5-14.5); White Blood Count 12.5 K/mm3 (4.5-10.0)
[2022-05-12 06:33] LABS: Anion Gap 2 mmol/L (8-16); Blood Urea Nitrogen 17 mg/dL (9-20); Carbon Dioxide 25 mmol/L (22-30); Chloride 113 mmol/L (98-107); Estimated CRCL calculation 54 ml/min; Estimated Glomerular Filt Rate > 60; Glucose 89 mg/dL (65-110); Potassium 3.1 mmol/L (3.4-5.0); Sodium 140 mmol/L (137-145)
[2022-05-12] MEDS: SALINE LOCK FLUSH 10 ML IV PUSH ×3 (06:54→22:40)
[2022-05-12] MEDS: TAMSULOSIN HCL 0.4 MG CAPSULE PO ×2 (09:03→16:12)
[2022-05-12] MEDS: ATORVASTATIN 40 MG TABLET 80 MG PO (09:04)
[2022-05-12] MEDS: CYANOCOBALAMIN 1,000 MCG TABLET 1000 MCG PO (09:04)
[2022-05-12] MEDS: PANTOPRAZOLE SODIUM IV 40 MG VIAL IV PUSH ×2 (09:04→20:29)
[2022-05-12] MEDS: GABAPENTIN 300 MG CAPSULE PO ×3 (09:04→16:13)
[2022-05-12] MEDS: FUROSEMIDE 20 MG TABLET PO (09:04)
[2022-05-12 09:05] VITALS: PULSE 78
[2022-05-12] MEDS: carvediloL 3.125 MG TABLET PO ×2 (09:05→16:13)
[2022-05-12] MEDS: COLLAGENASE OINT 30 GM TUBE 1 APPLIC TOPICAL (09:07)
[2022-05-12] MEDS: HYDROcodone/acetaminophen (*CRX) 5-325 MG TABLET 1 TAB PO ×2 (12:02→16:22)
[2022-05-12] MEDS: ERTAPENEM 1 GM/NS 50 ML 1 GM/50 ML BAG IVPB (12:04)
[2022-05-12] MEDS: POTASSIUM CHLORIDE 20 MEQ PACKET (FOR LIQUID) PO (12:05)
--- NOTE | 2022-05-12 12:26 | WPDGIPROGNO ---
Progress Note: A&P Assessment and Plan (1) Anemia: Code(s): D64.9 - Anemia, unspecified Status: Acute Assessment and Plan: hemoglobin has dropped from 14.2-7.9. A stool Hemoccult is positive although he is on apixaban for atrial fibrillation last 2 hemoglobins were 8.3 and 8.0. Therefore it appears that there is no further bleeding (2) Above knee amputation of left lower extremity: Code(s): S78.112A - Complete traumatic amputation at level between left hip and knee, initial encounter Status: Acute Assessment and Plan: the patient and his discussed with me the trials that he has been through with his peripheral vascular disease since being in [facility]. He has had 4 surgical procedures on the right leg. (3) Blood in stool: Code(s): K92.1 - Melena Status: Acute Assessment and Plan: he has been found to be Hemoccult positive. he has been on apixaban And clopidogrel for peripheral vascular disease. will be scheduled for endoscopy and colonoscopy to be done tomorrow (4) Personal history of colonic polyps: Code(s): Z86.010 - Personal history of colonic polyps Status: Acute Assessment and Plan: not quite 6 years ago he had removal of 3 polyps due for colonoscopy which will be done tomorrow (5) Sepsis: Code(s): A41.9 - Sepsis, unspecified organism Status: Acute Assessment and Plan: he apparently had a urinary tract infection and also may have infection from recent surgery although the stump does not look infected The plan is for him to continue antibiotics through tomorrow and then hopefully he will be discharged, Return to rehab Time Spent With Patient Time with patient: 15 - 25 minutes Subjective Date/time seen: 05/12/22 12:26 he is feeling a bit better today. He is tolerating some food, currently drinking a beverage with his . We discussed results of his EGD and colonoscopy. Nothing actively bleeding but fragile gastric mucosa. H pylori was negative. I explained the reason we check for that. Exam Const: General: alert, tired appearing and other ( Status post left AK amputation) Nutritional Appearance: average body habitus Orientation/consciousness: patient oriented x3 Resp: Auscultation: clear to auscultation bilaterally Cardio: Rhythm: regular rhythm GI: GI Palp: Yes Soft to palpation, No Tenderness to palpation present (GI), No Guarding due to palpation present (GI) and Yes No hepatosplenomegaly present Auscultation: normal bowel sounds Neuro: General: patient oriented x3 Objective Data Vital Signs Vital Signs: Vital Signs - 24 hr 05/11/22 12:45 05/11/22 14:01 05/11/22 14:11 Temperature 35.9 C L Pulse Rate 75 78 73 Respiratory Rate 22 H 15 Blood Pressure 150/72 H 150/68 H 141/69 H Pulse Oximetry 95 100 100 Oxygen Delivery Room Air Room Air Room Air 05/11/22 14:21 05/11/22 14:30 05/11/22 17:32 Temperature 35.9 C L Pulse Rate 72 71 71 Respiratory Rate 15 20 Blood Pressure 160/75 H 137/72 Pulse Oximetry 98 96 Oxygen Delivery Room Air 05/11/22 20:37 05/12/22 05:58 05/12/22 08:30 Temperature 36.4 C 36.5 C Pulse Rate 74 83 Respiratory Rate 20 20 Blood Pressure 164/61 H 149/75 H Pulse Oximetry 92 98 Oxygen Delivery Room Air 05/12/22 09:05 05/12/22 09:30 Temperature Pulse Rate 78 Respiratory Rate Blood Pressure Pulse Oximetry Oxygen Delivery Room Air Intake/Output Intake/Output: Intake & Output 05/09/22 05/10/22 05/11/22 05/12/22 23:59 23:59 23:59 23:59 Intake Total 1530 1100 860 Output Total 200 750 Balance 1330 350 860 Meds/Results Medications: Active Medications Generic Name Dose Route Start Last Admin Trade Name Freq PRN Reason Stop Dose Admin Acetaminophen 500 mg 05/06/22 17:02 05/10/22 09:46 Acetaminophen 500 Mg Tablet PO 500 mg Q6H PRN Administration Mild Pain (1-3) or Fever Hydroco
--- NOTE | 2022-05-12 13:32 | PM.DS ---
DS: Admitting Diagnosis Discharge Date 05/12/22 Admitting Diagnosis Fever DS: Discharge Diagnosis Discharge Diagnosis (1) Sepsis: Code(s): A41.9 - Sepsis, unspecified organism Status: Acute (2) Urinary tract infection: Code(s): N39.0 - Urinary tract infection, site not specified Status: Acute (3) Normocytic anemia: Code(s): D64.9 - Anemia, unspecified Status: Acute (4) History of left above knee amputation: Code(s): Z89.612 - Acquired absence of left leg above knee Status: Acute (5) Peripheral vascular disease: Code(s): I73.9 - Peripheral vascular disease, unspecified Status: Acute (6) Gastric AVM: Code(s): K31.819 - Angiodysplasia of stomach and duodenum without bleeding Status: Acute DS: Summary Hospital Course Reason for hospitalization: 76yo male with PAD s/p Left AKA, HTN and AFib here for fever. Please see H&P for details. Hospital Course: Patient presents with fever and found to have sepsis. Related to UTI/bacteremia with positive BCx (1of2) and positive urine culture both with ESBL Klebsiella. Fever resolved after starting antibiotics. WBC normalized (but higher as time of discharge felt related to stress response from endoscopy with cautery). Repeat blood cultures NGTD. Midline placed to complete 10 day course of IV abx through 05/14/22. Hgb was in the 8 range post operatively (from amputation) but has drifted down into the 7 range. Iron studies consistent with iron deficiency. Stool guaiac was positive. Eliquis was held. B12 low end of normal and was replaced. Treated with PPI and GI consulted. EGD showing gastric AVM with bleeding s/p cauterization. Colonoscopy with multiple polyps that were removed (please see report for details). H.pylori negative. GI recommended holding Plavix for 5 days and Eliquis for 2 days. Patient had a left AKA 04/24/22 for wet gangrene d/t severe vascular disease. [place] the sepsis related to UTI and not from a stump infection. No drainage for many days and only scant erythema. Has an unstageable sacral wound but did not feel this is the source of sepsis either. Dysphagia noted by staff. Speech therapy evaluation recommended soft and bite sized. He overall did well and was able to be discharged on 05/12/22. Status at Discharge Cognitive/behavioral status at discharge: stable Time Spent with Patient Time attestation: Total time spent providing and/or coordinating discharge services: 38 minutes Time spent: Greater than 30 minutes Exam Narrative: AF 149/75 78 20 98% ra Gen - NARD Chest - CTA bilaterally, nml RR CV - RRR S1/S2 Abd - Soft, NT/ND, Positive BS Ext - Left AKA. jose in place. Scant erythema noted at the stump site. No drainage. Psych - Nml mood and affect Skin - Warm and dry DS: Data Data Completed and Pending Pending studies at discharge: Pending at discharge 05/11/22 14:03 Surgical [PTH] Routine Labs on day of discharge: Labs from last 24 hours 05/12/22 05/12/22 06:02 06:02 WBC 12.5 H RBC 2.63 L Hgb 8.0 L Hct 26.0 L MCV 98.9 MCH 30.4 MCHC 30.8 L RDW 18.7 H Plt Count 463 H MPV 8.9 Immature Gran % (Auto) 1.1 H Neut % (Auto) 87.1 H Lymph % (Auto) 4.5 L [place] % (Auto) 5.7 Eos % (Auto) 1.4 Baso % (Auto) 0.2 Lymph # (Auto) 0.56 L [place] # (Auto) 0.7 H Eos # (Auto) 0.2 Baso # (Auto) 0.0 Abs Immat Gran (auto) 0.14 H Absolute Neuts (auto) 10.9 H Absolute Nucleated RBC 0.0 Nucleated RBC % 0.0 Sodium 140 Potassium 3.1 L Chloride 113 H Carbon Dioxide 25 Anion Gap 2 L BUN 17 Creatinine 1.00 Estim Creat Clear Calc 54 Estimated GFR > 60 Glucose 89 Calcium 8.0 L Discharge Plan Discharge Attending physician on discharge: Meño Lazaro Consulting providers: Justice Lee ; Alfonso Jennings Discharging Clinician: Meño Lazaro Anticipated Discharge Date/Time
[2022-05-12 14:00] VITALS: BP 104/52; PULSE 71; RESP 20; TEMP 36.4; O2SAT 96
--- NOTE | 2022-05-12 14:25 | WPDANESPN ---
Anes - Prog Note Post-Op Date/Time: 05/12/22 14:25 Cardiovascular status: normal Respiratory status: normal Airway patency: baseline Mental status: baseline Post-Op hydration status: normal Vital Signs: Last Vital Signs Temp 36.5 C 05/12/22 05:58 Pulse 78 05/12/22 09:05 Resp 20 05/12/22 05:58 BP 149/75 H 05/12/22 05:58 Pulse Ox 98 05/12/22 05:58 O2 Del Method Room Air 05/12/22 09:30 Pain Score (VAS): 310 I/O: Intake & Output 05/11/22 05/12/22 05/12/22 23:59 07:59 15:59 Intake Total 360 50 Balance 360 50 Laboratory Tests 05/12/22 06:02 05/12/22 06:02 05/12/22 05/12/22 06:02 06:02 WBC 12.5 H RBC 2.63 L Hgb 8.0 L Hct 26.0 L MCV 98.9 MCH 30.4 MCHC 30.8 L RDW 18.7 H Plt Count 463 H MPV 8.9 Immature Gran % (Auto) 1.1 H Neut % (Auto) 87.1 H Lymph % (Auto) 4.5 L [place] % (Auto) 5.7 Eos % (Auto) 1.4 Baso % (Auto) 0.2 Lymph # (Auto) 0.56 L [place] # (Auto) 0.7 H Eos # (Auto) 0.2 Baso # (Auto) 0.0 Abs Immat Gran (auto) 0.14 H Absolute Neuts (auto) 10.9 H Absolute Nucleated RBC 0.0 Nucleated RBC % 0.0 Sodium 140 Potassium 3.1 L Chloride 113 H Carbon Dioxide 25 Anion Gap 2 L BUN 17 Creatinine 1.00 Estim Creat Clear Calc 54 Estimated GFR > 60 Glucose 89 Calcium 8.0 L Microbiology 05/06/22 09:51 Blood Blood Culture - Final 05/06/22 09:51 Blood Blood Culture - Final Post-procedural complaints: none Patient Feedback: Patient satisfied with anesthetic care.
[2022-05-12] MEDS: POTASSIUM CHLORIDE 20 MEQ TABLET 40 MEQ PO (16:12)
[2022-05-12 16:13] VITALS: PULSE 73
[2022-05-12] MEDS: AMITRIPTYLINE HCL 25 MG TABLET PO (20:30)
[2022-05-12] MEDS: MELATONIN 3 MG TABLET PO (20:31)
[2022-05-12 20:33] VITALS: BP 142/63; PULSE 69; RESP 20; TEMP 36.6; O2SAT 94
[2022-05-13 05:40] VITALS: BP 133/64; PULSE 84; RESP 20; TEMP 36.4; O2SAT 94
[2022-05-13] MEDS: HYDROcodone/acetaminophen (*CRX) 5-325 MG TABLET 1 TAB PO ×3 (05:42→21:34)
[2022-05-13] MEDS: SALINE LOCK FLUSH 10 ML IV PUSH ×3 (05:52→21:36)
[2022-05-13 05:57] LABS: Basophils Percent Auto 0.2 % (0.2-1.2); Eosinophils Absolute Auto 0.2 K/mm3 (0-0.3); Eosinophils Percent Auto 1.5 % (0-4.4); Hematocrit 26.2 % (42.0-52.0); Immature Granulocyte Absolute 0.12 K/mm3 (0.00-0.031); Immature Granulocyte Percent A 0.8 % (0-0.5); Lymphocytes Percent Auto 4.1 % (18.3-44.2); Mean Corpuscular HGB Conc 30.5 g/dl (32-36); Mean Corpuscular Hemoglobin 30.2 pg (26-34); Mean Corpuscular Volume 98.9 fl (80-100); Monocytes Absolute Auto 0.7 K/mm3 (0.1-0.6); Monocytes Percent Auto 4.5 % (2.6-8.5); Neutrophils Absolute Auto 12.9 K/mm3 (1.3-6.7); Neutrophils Percent Auto 88.9 % (45.5-73.1); Platelet Count Result 430 k/mm3 (150-375); Red Blood Count 2.65 M/mm3 (4.6-6.20); Red Cell Distribution Width 19.1 % (11.5-14.5); White Blood Count 14.5 K/mm3 (4.5-10.0)
[2022-05-13 07:39] LABS: Platelet Estimate Increased (Adequate)
[2022-05-13 07:40] LABS: Anisocytosis 1+ (NORMAL); Spherocytes 1+ (NORMAL)
[2022-05-13 07:41] LABS: Burr Cells 1+ (NORMAL)
[2022-05-13 07:42] LABS: Schistocytes Rare (NORMAL)
[2022-05-13] MEDS: TAMSULOSIN HCL 0.4 MG CAPSULE PO ×2 (09:23→17:44)
[2022-05-13] MEDS: GABAPENTIN 300 MG CAPSULE PO ×3 (09:23→21:19)
[2022-05-13] MEDS: POTASSIUM CHLORIDE 20 MEQ PACKET (FOR LIQUID) PO (09:23)
[2022-05-13 09:24] VITALS: PULSE 91
[2022-05-13] MEDS: CYANOCOBALAMIN 1,000 MCG TABLET 1000 MCG PO (09:24)
[2022-05-13] MEDS: carvediloL 3.125 MG TABLET PO ×2 (09:24→17:44)
[2022-05-13] MEDS: FUROSEMIDE 20 MG TABLET PO (09:24)
[2022-05-13] MEDS: PANTOPRAZOLE SODIUM IV 40 MG VIAL IV PUSH ×2 (09:25→21:19)
[2022-05-13] MEDS: COLLAGENASE OINT 30 GM TUBE 1 APPLIC TOPICAL (09:25)
[2022-05-13] MEDS: ATORVASTATIN 40 MG TABLET 80 MG PO (09:25)
[2022-05-13] MEDS: ERTAPENEM 1 GM/NS 50 ML 1 GM/50 ML BAG IVPB (13:17)
[2022-05-13 14:00] VITALS: BP 145/62; PULSE 86; RESP 20; TEMP 36.5; O2SAT 95
[2022-05-13 17:44] VITALS: PULSE 78
--- NOTE | 2022-05-13 17:47 | PM.IMPN ---
Progress Note: A&P Assessment and Plan (1) Sepsis: Code(s): A41.9 - Sepsis, unspecified organism Status: Acute Assessment and Plan: Sepsis from UTI/bacteremia with positive BCx (1of2) and positive urine culture with ESBL Klebsiella Fever resolved after starting antibiotics. WBC normal. Repeat blood cultures NGTD. Midline placed to complete 10 day course of IV abx, starting date 05/05, end date 05/14 PCT 10.1 on 05/03, recheck down to 4.6 on 05/07 CRP 20.2 on 05/03, recheck down to 8 on 05/10 WBC climbing to 14.5 today. Continue current IV abx. (2) Urinary tract infection: Code(s): N39.0 - Urinary tract infection, site not specified Status: Acute Assessment and Plan: As above (3) Normocytic anemia: Code(s): D64.9 - Anemia, unspecified Status: Acute Assessment and Plan: Hgb was in the 8 range post operatively but has drifted down into the 7 range. Iron studies consistent with iron deficiency. Stool guaiac positive. Eliquis held. Appreciate Hematology input. B12 low end of normal. Continue PPI. Replace B12. GI consulted. Patient had EGD showing gastric AVM with bleeding. Colonoscopy showing polyps taht were removed and internal hemorrhoids. Plavix on hold for 5 days (resume on 05/17) and Eliquis on hold for 2 days (resume on 05/14). (4) History of left above knee amputation: Code(s): Z89.612 - Acquired absence of left leg above knee Status: Acute Assessment and Plan: Left AKA 04/24/22 for wet gangrene d/t severe vascular disease No leukocytosis but with fever and elevated CRP felt more likely related to the UTI with septicemia for which he is on ertapenem for Only scant erythema and no drainage noted from the wound now Has an unstageable sacral wound. Do not feel this is the source of sepsis. Appreciate wound care input. Continue routine wound care. PT/OT. 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 Speech therapy recommended soft and bite sized. Diet adjusted Urine retention - bladder distended with bladder scan showing 536mL. Voided 200mL and then large incontinence. Post void 430mL. Stop Elavil (new this admission) DVT prophylaxis with Eliquis--on hold for now d/t drop in hgb and guaiac positive stools; SCDs to right Code status DNR Subjective Date/time seen: 05/13/22 17:47 Interval history: 76yo male with PAD s/p Left AKA, HTN and AFib here for fever. No complaints today. Has distended bladder but he denies dysuria or hematuria. Exam Narrative: AF 133/64 78 20 94% ra Gen - NARD Chest - CTA bilaterally, nml RR CV - RRR S1/S2 Abd - Soft, NT/ND, Positive BS. Bladder feels distended. flank edema noted Ext - Left AKA. jose in place. Scant erythema noted at the stump site. No drainage. Psych - Nml mood and affect Skin - Warm and dry Objective Data Vital Signs Vital Signs: Vital Signs - 24 hr 05/12/22 20:33 05/13/22 05:40 05/13/22 09:24 Temperature 98 F 97.6 F Pulse Rate 69 84 91 Respiratory Rate 20 20 Blood Pressure 142/63 H 133/64 Pulse Oximetry 94 94 05/13/22 17:44 Temperature Pulse Rate 78 Respiratory Rate Blood Pressure Pulse Oximetry Intake/Output Intake/Output: Intake & Output 05/10/22 05/11/22 05/12/22 05/13/22 23:59 23:59 23:59 23:59 Intake Total 9352 197 1976 Output Total 750 200 Balance 240 407 3387 -200 Meds/Results Medications: Active Medications
[2022-05-13] MEDS: MELATONIN 3 MG TABLET PO (21:19)
[2022-05-13 22:00] VITALS: BP 167/74; PULSE 59; RESP 18; TEMP 36.6; O2SAT 97
[2022-05-14 05:57] LABS: Basophils Percent Auto 0.2 % (0.2-1.2); Eosinophils Absolute Auto 0.2 K/mm3 (0-0.3); Eosinophils Percent Auto 1.2 % (0-4.4); Hematocrit 25.2 % (42.0-52.0); Hemoglobin 7.7 g/dL (14.0-18.0); Immature Granulocyte Absolute 0.14 K/mm3 (0.00-0.031); Immature Granulocyte Percent A 1.1 % (0-0.5); Lymphocytes Absolute Auto 0.57 K/mm3 (0.9-3.2); Lymphocytes Percent Auto 4.5 % (18.3-44.2); Mean Corpuscular HGB Conc 30.6 g/dl (32-36); Mean Corpuscular Hemoglobin 30.6 pg (26-34); Monocytes Absolute Auto 0.7 K/mm3 (0.1-0.6); Monocytes Percent Auto 5.4 % (2.6-8.5); Neutrophils Absolute Auto 11.1 K/mm3 (1.3-6.7); Neutrophils Percent Auto 87.6 % (45.5-73.1); Platelet Count Result 384 k/mm3 (150-375); Red Blood Count 2.52 M/mm3 (4.6-6.20); Red Cell Distribution Width 19.2 % (11.5-14.5); White Blood Count 12.7 K/mm3 (4.5-10.0)
[2022-05-14 06:11] LABS: Anion Gap 0 mmol/L (8-16); Blood Urea Nitrogen 18 mg/dL (9-20); Calcium 7.5 mg/dL (8.4-10.2); Carbon Dioxide 25 mmol/L (22-30); Chloride 114 mmol/L (98-107); Estimated CRCL calculation 45 ml/min; Estimated Glomerular Filt Rate 59; Glucose 88 mg/dL (65-110); Magnesium 1.8 mg/dL (1.6-2.3); Potassium 2.5 mmol/L (3.4-5.0); Sodium 139 mmol/L (137-145)
[2022-05-14 07:28] LABS: Phosphorus 4.5 mg/dL (2.5-4.5)
[2022-05-14] MEDS: POTASSIUM CHLORIDE 20 MEQ PACKET (FOR LIQUID) 40 MEQ PO (08:14)
[2022-05-14] MEDS: MAGNESIUM SULF 2 GM/WATER 50ML 2 GM/50 ML BAG IVPB (08:14)
[2022-05-14] MEDS: POTASSIUM CHLORIDE 20 MEQ PACKET (FOR LIQUID) PO ×2 (08:19→17:17)
[2022-05-14] MEDS: TAMSULOSIN HCL 0.4 MG CAPSULE PO ×2 (08:25→17:14)
[2022-05-14] MEDS: FUROSEMIDE 20 MG TABLET PO (08:25)
[2022-05-14] MEDS: COLLAGENASE OINT 30 GM TUBE 1 APPLIC TOPICAL (08:25)
[2022-05-14] MEDS: ATORVASTATIN 40 MG TABLET 80 MG PO (08:25)
[2022-05-14] MEDS: CYANOCOBALAMIN 1,000 MCG TABLET 1000 MCG PO (08:25)
[2022-05-14] MEDS: PANTOPRAZOLE SODIUM IV 40 MG VIAL IV PUSH ×2 (08:25→20:06)
[2022-05-14] MEDS: GABAPENTIN 300 MG CAPSULE PO ×3 (08:25→17:14)
[2022-05-14 08:27] VITALS: PULSE 79
[2022-05-14] MEDS: carvediloL 3.125 MG TABLET PO ×2 (08:27→17:17)
[2022-05-14 08:30] VITALS: BP 141/72; PULSE 80; O2SAT 100
[2022-05-14] MEDS: POTASSIUM CHLORIDE INJ 40 MEQ in SODIUM CHLORIDE 0.9% IV 500 ML 130 MEQ IVPB (09:56)
[2022-05-14] MEDS: HYDROcodone/acetaminophen (*CRX) 5-325 MG TABLET 1 TAB PO ×3 (09:59→20:06)
[2022-05-14 14:00] VITALS: BP 112/52; PULSE 90; RESP 18; TEMP 37; O2SAT 99
[2022-05-14] MEDS: ERTAPENEM 1 GM/NS 50 ML 1 GM/50 ML BAG IVPB (14:18)
[2022-05-14] MEDS: SALINE LOCK FLUSH 10 ML IV PUSH ×2 (14:19→20:07)
[2022-05-14 15:36] LABS: Potassium 3.7 mmol/L (3.4-5.0)
--- NOTE | 2022-05-14 15:54 | PM.DS ---
DS: Admitting Diagnosis Discharge Date 05/14/22 Admitting Diagnosis Fever DS: Discharge Diagnosis Discharge Diagnosis (1) Sepsis: Code(s): A41.9 - Sepsis, unspecified organism Status: Acute (2) Urinary tract infection: Code(s): N39.0 - Urinary tract infection, site not specified Status: Acute (3) Normocytic anemia: Code(s): D64.9 - Anemia, unspecified Status: Acute Assessment and Plan: Hgb was in the 8 range post operatively but has drifted down into the 7 range. Iron studies consistent with iron deficiency. Stool guaiac positive. Eliquis held. Appreciate Hematology input. B12 low end of normal. Continue PPI. Replace B12. GI consulted. Patient had EGD showing gastric AVM with bleeding. Colonoscopy showing polyps taht were removed and internal hemorrhoids. Plavix on hold for 5 days (resume on 05/17) and Eliquis on hold for 2 days (resume on 05/14). 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 Please see H&P for details. Hospital Course: Patient presents with fever and found to have sepsis. Related to UTI/bacteremia with positive BCx (1of2) and positive urine culture both with ESBL Klebsiella. Fever resolved after starting antibiotics. WBC normalized but climbed to 14K before trending down felt related to stress response from endoscopy with cautery. Repeat blood cultures NGTD. Midline placed to complete 10 day course of IV abx through 05/14/22. Hgb was in the 8 range post operatively (from amputation) but has drifted down into the 7 range. Iron studies consistent with iron deficiency. Stool guaiac was positive. Eliquis was held. B12 low end of normal and was replaced. Treated with PPI and GI consulted. EGD 05/11 showing gastric AVM with bleeding s/p cauterization. Colonoscopy with multiple polyps that were removed (please see report for details). H.pylori negative. GI recommended holding Plavix for 5 days and Eliquis for 2 days. Patient had a left AKA 04/24/22 for wet gangrene d/t severe vascular disease. [place] the sepsis related to UTI and not from a stump infection. No drainage for many days and only scant erythema. Has an unstageable sacral wound but did not feel this is the source of sepsis either. Dysphagia noted by staff. Speech therapy evaluation recommended soft and bite sized. Urine retention noted toward the end of his hospital course. His bladder was distended with bladder scan showing 536mL. Voided 200mL and then large incontinence. Post void 430mL. 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 He also noted to have low potassium as well and this was replaced. Increased edema noted to the right lower extremity but chronic per patient. Patient has been out of bed more so probably dependent. He overall did well and was able to be discharged on 05/14/22. Status at Discharge Cognitive/behavioral status at discharge: stable Time Spent with Patient Time attestation: Total time spent providing and/or coordinating discharge services: 34 minutes Time spent: Greater than 30 minutes Exam Narrative: AF 112/52 90 18 99% ra Gen - NARD Chest - CTA bilaterally, nml RR CV - RRR S1/S2 Abd - Soft, NT/ND, Positive BS. - Fo
[2022-05-14 17:17] VITALS: PULSE 86
[2022-05-14] MEDS: APIXABAN 5 MG TABLET PO (20:06)
[2022-05-14] MEDS: MELATONIN 3 MG TABLET PO (20:06)
[2022-05-14 22:00] VITALS: BP 111/50; PULSE 86; RESP 18; TEMP 37; O2SAT 97
[2022-05-15 04:10] LABS: Basophils Percent Auto 0.3 % (0.2-1.2); Eosinophils Absolute Auto 0.3 K/mm3 (0-0.3); Eosinophils Percent Auto 2.6 % (0-4.4); Hematocrit 24.2 % (42.0-52.0); Hemoglobin 7.3 g/dL (14.0-18.0); Immature Granulocyte Absolute 0.09 K/mm3 (0.00-0.031); Immature Granulocyte Percent A 0.8 % (0-0.5); Lymphocytes Absolute Auto 0.87 K/mm3 (0.9-3.2); Lymphocytes Percent Auto 7.8 % (18.3-44.2); Mean Corpuscular HGB Conc 30.2 g/dl (32-36); Mean Corpuscular Hemoglobin 30.3 pg (26-34); Mean Corpuscular Volume 100.4 fl (80-100); Mean Platelet Volume 8.9 fl (7.4-10.4); Monocytes Absolute Auto 0.8 K/mm3 (0.1-0.6); Monocytes Percent Auto 6.7 % (2.6-8.5); Neutrophils Absolute Auto 9.1 K/mm3 (1.3-6.7); Neutrophils Percent Auto 81.8 % (45.5-73.1); Platelet Count Result 343 k/mm3 (150-375); Red Blood Count 2.41 M/mm3 (4.6-6.20); White Blood Count 11.1 K/mm3 (4.5-10.0)
[2022-05-15 06:00] VITALS: BP 114/58; PULSE 73; RESP 22; TEMP 37; O2SAT 97
[2022-05-15] MEDS: PANTOPRAZOLE SODIUM IV 40 MG VIAL IV PUSH (08:34)
[2022-05-15] MEDS: GABAPENTIN 300 MG CAPSULE PO ×2 (08:34→12:10)
[2022-05-15] MEDS: POTASSIUM CHLORIDE 20 MEQ PACKET (FOR LIQUID) PO (08:34)
[2022-05-15 08:35] VITALS: PULSE 73
[2022-05-15] MEDS: carvediloL 3.125 MG TABLET PO (08:35)
[2022-05-15] MEDS: ATORVASTATIN 40 MG TABLET 80 MG PO (08:35)
[2022-05-15] MEDS: TAMSULOSIN HCL 0.4 MG CAPSULE PO (08:35)
[2022-05-15] MEDS: DOCUSATE SODIUM 100 MG CAPSULE PO (08:35)
[2022-05-15] MEDS: FUROSEMIDE 20 MG TABLET PO (08:35)
[2022-05-15] MEDS: COLLAGENASE OINT 30 GM TUBE 1 APPLIC TOPICAL (08:36)
[2022-05-15] MEDS: CYANOCOBALAMIN 1,000 MCG TABLET 1000 MCG PO (08:36)
[2022-05-15] MEDS: APIXABAN 5 MG TABLET PO (08:36)
[2022-05-15] MEDS: SALINE LOCK FLUSH 10 ML IV PUSH (13:15)
--- NOTE | 2022-05-15 13:23 | PCDIET ---
Diet order: Soft and Bite Sized,Level 6 with Stanislav BID and Ensure compact BID. Patient had Bedside Swallow Eval 05/15 recommend diet modifications. tolerating diet and supplements. Skin: unstageable PU-saccum. Last BM reported 05/14. Will continue to monitor every 5 days.
--- NOTE | 2022-05-15 13:43 | PM.DS ---
DS: Admitting Diagnosis Discharge Date 05/15/22 Admitting Diagnosis Fever DS: Discharge Diagnosis Discharge Diagnosis (1) Sepsis: Code(s): A41.9 - Sepsis, unspecified organism Status: Acute (2) Urinary tract infection: Code(s): N39.0 - Urinary tract infection, site not specified Status: Acute (3) Normocytic anemia: Code(s): D64.9 - Anemia, unspecified Status: Acute (4) History of left above knee amputation: Code(s): Z89.612 - Acquired absence of left leg above knee Status: Acute (5) Peripheral vascular disease: Code(s): I73.9 - Peripheral vascular disease, unspecified Status: Acute (6) Gastric AVM: Code(s): K31.819 - Angiodysplasia of stomach and 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 Please see H&P for details. Hospital Course: Patient presents with fever and found to have sepsis. Related to UTI/bacteremia with positive BCx (1of2) and positive urine culture both with ESBL Klebsiella. Fever resolved after starting antibiotics. WBC normalized but climbed to 14K before trending down felt related to stress response from endoscopy with cautery. Repeat blood cultures NGTD. Patient completed a 10 day course of IV abx through 05/14/22. Hgb was in the 8 range post operatively (from amputation) but has drifted down into the 7 range. Iron studies consistent with iron deficiency. Stool guaiac was positive. Eliquis was held. B12 low end of normal and was replaced. Treated with PPI and GI was consulted. EGD 05/11 showing gastric AVM with bleeding s/p cauterization. Colonoscopy with multiple polyps that were removed (please see report for details). H.pylori negative. GI recommended holding Plavix for 5 days and Eliquis for 2 days. Patient had a left AKA 04/24/22 for wet gangrene d/t severe vascular disease. [place] the sepsis related to UTI and not from a stump infection. No drainage for many days and only scant erythema. Has an unstageable sacral wound but did not feel this is the source of sepsis either. Dysphagia noted by staff. Speech therapy evaluation recommended soft and bite sized. Urine retention noted toward the end of his hospital course. His bladder was distended with bladder scan showing 536mL. Voided 200mL and then large incontinence. Post void 430mL. 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 He also noted to have low potassium as well and this was replaced. Increased edema noted to the right lower extremity but chronic per patient. Patient has been out of bed more so probably dependent. He overall did well and was able to be discharged on 05/15/22. Status at Discharge Cognitive/behavioral status at discharge: stable Time Spent with Patient Time attestation: Total time spent providing and/or coordinating discharge services: 34 minutes Time spent: Greater than 30 minutes Exam Narrative: AF 114/58 73 22 97% ra Gen - NARD Chest - CTA bilaterally, nml RR CV - RRR S1/S2 Abd - Soft, NT/ND, Positive BS. - [place] secured draining clear yellow urine Ext - Left AKA. jose in place. No significant erythema noted at the stump site. No drainage. Trace right pedal edema Psych - Nml mood and affect Skin - Warm and dry DS: Data Data Completed and Pending Pending studies at discharge: Pending at discharge 05/11/22 14:03 Surgical [PTH] Routine Labs on day of discharge: Labs from last 24 hours 05/15/22 05/14/22 03:56 15:19 WBC 11.1 H RBC 2.41 L Hgb 7.3 L Hct 24.2 L
[2022-05-15 14:52] VITALS: BP 131/55; PULSE 71; RESP 16; TEMP 36.4; O2SAT 97
== END 2022-05-15 16:00 | DRG 871 ==
LOC: ANHED 08:42 → ANH3MED 10:23
PROVIDERS: Internal Medicine; Internal Medicine Gastroenterology; Physician Assistant; Student in an Organized Health Care Education/Training Program; Admitting Provider Chiropractor; Emergency Provider Emergency Medicine; PCP Family Medicine; Visit Provider Internal Medicine
PROC: 0DJ08ZZ Inspection of Upper Intestinal Tract, Via Natural or Artificial Opening Endoscopic (ICD-10-PCS; CPT 43235; principal; 2022-05-11 13:45)
DX: A41.89 Other specified sepsis (principal); K31.811 Angiodysplasia of stomach and duodenum with bleeding; N39.0 Urinary tract infection, site not specified; E87.1 Hypo-osmolality and hyponatremia; Z16.12 Extended spectrum beta lactamase (ESBL) resistance; B96.1 Klebsiella pneumoniae [K. pneumoniae] as the cause of diseases classified elsewhere; D50.9 Iron deficiency anemia, unspecified; Z20.822 Contact with and (suspected) exposure to COVID-19; D12.4 Benign neoplasm of descending colon; D12.0 Benign neoplasm of cecum; K64.8 Other hemorrhoids; M19.90 Unspecified osteoarthritis, unspecified site; I25.10 Atherosclerotic heart disease of native coronary artery without angina pectoris; L89.150 Pressure ulcer of sacral region, unstageable; I73.9 Peripheral vascular disease, unspecified; I48.91 Unspecified atrial fibrillation; I11.0 Hypertensive heart disease with heart failure; I50.9 Heart failure, unspecified; R13.10 Dysphagia, unspecified; F17.210 Nicotine dependence, cigarettes, uncomplicated; Z66 Do not resuscitate; Z89.512 Acquired absence of left leg below knee; I69.30 Unspecified sequelae of cerebral infarction; Z85.828 Personal history of other malignant neoplasm of skin; I25.2 Old myocardial infarction; Z95.1 Presence of aortocoronary bypass graft; Z86.010 Personal history of colon polyps; R33.9 Retention of urine, unspecified; R32 Unspecified urinary incontinence; T43.015A Adverse effect of tricyclic antidepressants, initial encounter
CPT/HCPCS: 36415; 36569; 51701; 71046; 80048; 80053; 80069; 81001; 82274; 82607; 82728; 82746; 82948; 83540; 83550; 83605; 83735; 84100; 84132; 84134; 84145; 85025; 85610; 85730; 86140; 87040; 87077; 87081; 87186; 87502; 88305; 92610; 93005; 96361; 96365; 96366; 96375; 96376; 97110; 97112; 97161; 97165; 97530; 99285; A9270; C1751; C9113; G0378; J0131; J0696; J1335; J1756; J2704; J3420; J3475; J3480; J7030; J7040; J7050; J7120; U0003; U0005

== ENCOUNTER 2022-05-28 16:37 | Inpatient (IN) | payer MEDICARE, OTHER, SELFPAY ==
[2022-05-28] VITALS (22 sets, daily range): BP systolic 79–112; BP diastolic 49–78; PULSE 74–96; RESP 13–24; TEMP 36.6–36.9; O2SAT 95–100; BMI 16.7
--- NOTE | ~2022-05-28 | MR_ITS ---
MRI of the sacrum CLINICAL HISTORY: Coccygeal pain, osteomyelitis TECHNIQUE: Sagittal proton-density fat-sat images, coronal T1-weighted, T2-weighted, and T2 fat-sat i mages, and axial T1-weighted and T2 fat-sat images were performed. FINDINGS: There is no hypointense T1 marrow signal in the sacrum or coccyx to suggest osteoarthritis. There is minimal marrow edema in the distal sacrum and proximal coccyx which could reflect mild reac tive change/stress response. No fracture evident. Remaining bone marrow signals are unremarkable. Suggestion of very small focal sacral decubitus ulcer overlying the distal sacrum/proximal coccyx jus t left of midline. No abscess evident. No other significant soft tissue abnormality evident. IMPRESSION: No evidence for osteomyelitis. Probable minimal stress response/reactive marrow edema in the distal s acrum/proximal coccyx. Very small sacral decubitus ulcer, as detailed above. Reviewed, dictated and finalized at [facility]. IMPRESSION: No evidence for osteomyelitis. Probable minimal stress response/reactive marrow edema in the distal sacrum/proximal coccyx. Very small sacral decubitus ulcer, as detailed above.
--- NOTE | ~2022-05-28 | XR_ITS ---
EXAMINATION: XR chest 1V portable Exam Date/Time: 05/28/2022 18:15 CUSTOMER QUALITY SPECIALIST HISTORY: AMS Comparison: 05/03/2022, 10/07/2020, 06/15/2019; CTA brain carotid 06/15/2019. RESULT: Lines, tubes, and devices: Intact sternotomy wires. Mediastinal surgical clips. Lungs and pleura: Senescent changes. 1.4 cm nodular peripheral opacity in the right upper lung. Cardiomediastinal silhouette: Stable. Other: No acute osseous or upper abdominal finding. IMPRESSION: No acute cardiopulmonary process. 1.4 cm nodular opacity in the right upper lung. Consider nonemergen t CT at 3 months, PET/CT, or tissue sampling. Reviewed, dictated and finalized at location K. OMER QUALITY SPECIALIST IMPRESSION: No acute cardiopulmonary process. 1.4 cm nodular opacity in the right upper tristian g. Consider nonemergent CT at 3 months, PET/CT, or tissue sampling.
--- NOTE | ~2022-05-28 | XR_ITS ---
MODIFIED ESOPHAGRAM HISTORY: Dysphagia. TECHNIQUE: Modified barium esophagram was performed on 06/08/2022. I administered fluoroscopy and perf ormed the exam with speech pathologist. Patient was seated for lateral fluoroscopic imaging for kaity stion of thin liquids, pudding, solids and quantified amounts, followed by thin liquids in uncontroll ed amounts. This was recorded on tape. A single fluoroscopic spot image was also recorded. The DAP fo r this procedure was 1.575 Gycm2. The amount of fluoroscopy time used during this procedure was 2.6 m inutes. FINDINGS: Oral stage: Adequate function with some lingual pumping to initiate the swallow. Pharyngeal stage: Adequate function with small amount of vallecular residue. No laryngeal penetration or aspiration. Cervical/esophageal stage: Adequate function. IMPRESSION: Patient tolerated regular consistency oral feedings in the upright position. Please stew elate with speech pathologist findings and specific feeding recommendations. Reviewed, dictated and finalized at location A. K UP WORKER IMPRESSION: Patient tolerated regular consistency oral feedings in the upright position. Please correlate with speech pathologist findings and specific feedi ng recommendations.
--- NOTE | ~2022-05-28 | US_ITS ---
EXAMINATION: US renal BI DATE: 05/30/2022 15:01 INDICATION: Recurrent urinary tract infections. TECHNIQUE: Multiple ultrasound grayscale images of the kidneys were obtained. COMPARISON: CT abdomen and pelvis 12/22/2009 FINDINGS: The right kidney measures 9.0 x 4.4 x 4.9 cm. The left kidney measures 11.6 x 4.8 x 5.4 cm. The kidne ys demonstrate normal parenchymal echogenicity. There is a 1.2 cm cyst in left kidney. There is no hy dronephrosis. The bladder is normal. IMPRESSION: 1. Normal kidney sizes. No hydronephrosis. Reviewed, dictated and finalized at location A. TING FIXTURES DECORATOR
--- NOTE | 2022-05-28 16:56 | ECG_ITS ---
Measurements Intervals [place] Rate: 73 P: 49 TN: 143 QRS: 15 QRSD: 106 T: 52 QT: 421 QTc: 466 Interpretive Statements SINUS RHYTHM BASELINE ARTIFACT- I, III, AVL NORMAL ECG COMPARED TO ECG 05/03/2022 07:16:17 NO SIGNIFICANT CHANGES Electronically Signed On 05-28-2022 20:53:30 CARDIAC MONITOR TECHNICIAN by Huang Walsh D.O.
--- NOTE | 2022-05-28 17:44 | ED.GENADULT ---
HPI - General Adult General Chief complaint: Altered Mental Status Stated complaint: Fever Time Seen by Provider: 05/28/22 17:09 History of Present Illness HPI narrative: Patient is a 76-year-old male who presents ER with altered mental status and fever. Patient was post be discharged from his rehabilitation facility today but is now somnolent and weak. He was rehabbing from a left lower extremity amputation. He has a known decubitus ulcer over his sacrum that is being cared for. No reports of cough or congestion. No urinary symptoms reported. Patient was placed on supplemental oxygen upon arrival to the ER. Related Data Home Medications Medication Instructions Recorded Confirmed carvedilol 12.5 mg tablet 3.125 mg PO BID 01/19/22 05/11/22 tamsulosin 0.4 mg capsule 0.4 mg PO BID 01/19/22 05/11/22 atorvastatin 80 mg tablet 80 mg PO DAILY 05/03/22 05/11/22 cyclobenzaprine 10 mg tablet 10 mg PO Q6-8H 05/03/22 05/11/22 docusate sodium 100 mg capsule 100 mg PO BID 05/03/22 05/11/22 gabapentin 300 mg capsule 300 mg PO TID 05/03/22 05/11/22 melatonin 3 mg tablet 3 mg PO HS 05/03/22 05/11/22 polyethylene glycol 3350 17 gram 17 g PO PRN PRN Constipation 05/03/22 05/11/22 oral powder packet (Miralax) potassium chloride 20 mEq oral 20 meq PO DAILY 05/03/22 05/11/22 packet sennosides 8.6 mg tablet (senna) 8.6 mg PO BID 05/03/22 05/11/22 Allergies Allergy/AdvReac Type Severity Reaction Status Date / Time Aminoglycosides Allergy Severe RASH Verified 05/28/22 16:57 bacitracin Allergy Severe Rash Verified 05/28/22 16:57 neomycin Allergy Severe RASH Verified 05/28/22 16:57 polymyxin B Allergy Severe Rash Verified 05/28/22 16:57 POLYMYXINBSULF Allergy Severe RASH Uncoded 05/28/22 16:57 Review of Systems Review of Systems: ROS unobtainable: Yes unobtainable due to medical condition PMFSH Past Medical History Medical History Arthritis Basal cell carcinoma (BCC) on face removed in 2012 CAD (coronary artery disease) CHF (congestive heart failure) Cough CVA (cerebral vascular accident) Cyst of right kidney DDD (degenerative disc disease) Enlarged prostate Farsightedness Foot fracture, left History of left above knee amputation History of stroke with current residual effects HTN (hypertension) Hypercholesteremia Left ear hearing loss Myocardial infarction Renal disease Surgical History Surgical History H/O plastic surgery On ankle for infected dog bite History of cardiac cath History of open heart surgery Hx of AKA (above knee amputation) left Hx of CABG Family History Family History Father Congestive heart failure Mother Diabetes mellitus Cerebrovascular accident Sibling Diabetes mellitus Sibling No problems noted. Social History Social History Social History: Patient lives at home with his , Loan, whom he designates as his surrogate MDM. He wishes to be listed as a full code. His PCP is Dr. Kenny. Smoking packs per day: 1 Smoking cigarettes per day: 20.0 Years smoked: 60 Smoking pack-years: 60.00 Smoking status: Current every day smoker Tobacco type: cigarettes Second hand tobacco smoke exposure: Yes Additional smoking assessment comments: pt states he is not interested in quitting right now Alcohol intake: never Substance use: never Substance use type: does not use Lack of Transportation: No Lack of Food: Never True Current Housing: I Have Housing Concerned About Future Housing: No Difficulty Paying Gas/Electric Bills: No Difficulty Paying for Meds: No Currently Unemployed: No Education: Bachelor's Degree Difficulty w/ Childcare or Family Care: No Living arrangements: with family Addition
[2022-05-28 18:06] LABS: Hematocrit 25.5 % (42.0-52.0); Hemoglobin 7.7 g/dL (14.0-18.0); Mean Corpuscular HGB Conc 30.2 g/dl (32-36); Mean Corpuscular Hemoglobin 29.1 pg (26-34); Mean Corpuscular Volume 96.2 fl (80-100); Platelet Count Result 370 k/mm3 (150-375); Red Blood Count 2.65 M/mm3 (4.6-6.20); White Blood Count 18.3 K/mm3 (4.5-10.0)
[2022-05-28 18:23] LABS: Lactic Acid Reflex 1.2 mmol/L (0.7-2.0)
[2022-05-28 18:25] LABS: INR 2.9; Prothrombin Time 29.2 Seconds (11.1-14.7)
[2022-05-28 18:26] LABS: Band Neutrophils Percent 6 % (0-6); Lymphocytes Absolute Manual 0.73 K/mm3 (1.1-4.5); Monocytes Absolute Manual 0.73 K/mm3 (0.1-0.90); Monocytes Percent Manual 4 % (3-9); Neutrophils Absolute Manual 16.83 K/mm3 (1.3-6.7); Neutrophils Percent Manual 86 % (46-73); Partial Thromboplastin Time 54.2 SECONDS (22.3-36.8); Total Cells Counted 100
[2022-05-28 18:27] LABS: Platelet Estimate Adequate (Adequate)
[2022-05-28 18:28] LABS: Anisocytosis 2+ (NORMAL); Schistocytes None Seen (NORMAL)
[2022-05-28 18:29] LABS: Hypochromasia 1+ (NORMAL)
[2022-05-28 18:30] LABS: Alanine Aminotransferase 15 U/L (6-50); Albumin Level 2.1 g/dL (3.5-5.1); Alkaline Phosphatase 54 U/L (38-126); Anion Gap 3 mmol/L (8-16); Aspartate Amino Transferase 16 U/L (17-59); Bilirubin,Total 0.3 mg/dL (0.2-1.3); Blood Urea Nitrogen 30 mg/dL (9-20); Calcium 7.3 mg/dL (8.4-10.2); Carbon Dioxide 26 mmol/L (22-30); Chloride 103 mmol/L (98-107); Estimated Glomerular Filt Rate 54; Glucose 116 mg/dL (65-110); Potassium 4.5 mmol/L (3.4-5.0); Sodium 132 mmol/L (137-145)
[2022-05-28 19:00] LABS: Alveolar/Arterial O2 Gradient 90.6 mmHg; Carboxyhemoglobin 0.4 % THb (0-2.0); Fractional Inspired Oxygen 32 %; HCO3 ABG 24.3 mEq/l (22.0-26.0); Methemoglobin ABG 0.3 %THb (0-1.5); Oxygen Content ABG 12.2 %vol (16.0-22.0); Oxygen Saturation ABG 97.9 % (95.0-100.0); PCO2 ABG 33.5 mmHg (35.0-45.0); PO2 ABG 98.4 mmHg (80.0-100.0); PO2 FiO2 Ratio Arterial Blood 3.08 %; Reduced Hemoglobin 3.3 %THb (0-5.0); Total Hemoglobin 8.9 g/dL (12.0-18.0); pH ABG 7.479 (7.350-7.450)
[2022-05-28 19:01] LABS: Device NASAL CANNULA; Modified Allen's Test Unable to perform; Site Drawn RIGHT BRACHIAL
[2022-05-28 19:02] LABS: Appearance Urine Slightly Cloudy (Clear); Bilirubin Urine Negative (Negative); Blood Urine 2+ (Negative); Color Urine Yellow (Yellow); Glucose Urine UA Negative (Negative); Ketones Urine Negative (Negative); Leukocyte Esterase Ur 3+ LEU/UL (Negative); Nitrate Urine Negative (Negative); Protein Urine 1+ mg/dL (Negative); Specific Grav Ur 1.015 (1.001-1.035); Urobilinogen Urine 0.2 mg/dL (<2.0)
[2022-05-28 19:04] LABS: CRP 32.5 mg/dL (<1.0)
[2022-05-28 19:09] LABS: Bacteria Urine 4+ /hpf; RBC Urine 21-50 /hpf (0-2); WBC Urine >75 /hpf
[2022-05-28 19:18] LABS: Add Urine Microscopic? YES
--- NOTE | 2022-05-28 20:00 | PC.NURSE ---
Pt received 1800mL of fluids despite MAR showing 1000mL. Unable to update MAR to show correct amount patient received.
--- NOTE | 2022-05-28 21:35 | ADMGEN ---
This patient, Porfirio Pabon, was admitted to IMU Room 211-01. Patient/family oriented to hospital policies and general routines including ID bracelet, bed and alarms, visiting hours, pain management, procedures, bathroom and other care routines, personal items, smoking policy, room service/diet, and visiting hours. Information on how to activate the Rapid Response Team has been discussed. Patient/Family are encouraged to report perceived risks to care and to ask questions if they do not understand what they are told or what they should do.
--- NOTE | 2022-05-28 23:58 | PM.IMHP ---
H&P: HPI History of Present Illness Date/Time: 05/28/22 23:58 Chief Complaint: Lethargic, fever, sent from acute rehab Narrative: 76-year-old male with past medical history of left [id number] amputation, essential hypertension, dyslipidemia, CHF and paroxysmal AFib atrial fibrillation as well as BPH who presented to the ER from [facility] rehab with weakness, fever and altered mental status. The patient was recently hospitalized in mid April due to Klebsiella pneumonia ESBL bacteremia due to UTI. 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 He completed 10 days of IV antibiotics and was discharged to acute rehab 05/15/2022. He was actually getting close to being ready for discharge from acute rehab but today was noted to be somnolent and weak and was sent in for evaluation. The patient denies having any dysuria or changes in urinary frequency. But at the time of my evaluation the patient was overtly incontinent of urine. The patient did not seem to realize that he had been incontinent of urine until i.e. found him with saturated clothes and bedding. He reported feeling cold and chilled and requested that I turned the heat up in his room. The patient answered orientation questions correctly but his responses were slowed. In the ER UA was performed which was consistent with UTI. Given the patient met sepsis criteria given his history of multidrug resistant ESBL he is admitted to the hospital for further evaluation and treatment. After had evaluated the patient at I had ordered the patient's home medications including Neurontin as he was requesting something for pain. After nursing staff give the patient is medications he then proceeded to cough multiple times until he vomited. Noted that the patient then again had a recurrent episode of coughing after taking a sip of water per subsequently patient was made NPO however until he could be evaluated by speech therapy. Review of Systems Review of Systems: 12 systems were reviewed with pertinent positives and negatives per HPI. Except as documented in the HPI, all other systems were reviewed and are negative. [facility] Past Medical History Medical History Arthritis Basal cell carcinoma (BCC) on face removed in 2011 CAD (coronary artery disease) CHF (congestive heart failure) Cough CVA (cerebral vascular accident) Cyst of right kidney DDD (degenerative disc disease) Enlarged prostate Farsightedness Foot fracture, left History of left above knee amputation History of stroke with current residual effects HTN (hypertension) Hypercholesteremia Left ear hearing loss Myocardial infarction Renal disease Surgical History Surgical History H/O plastic surgery On ankle for infected dog bite History of cardiac cath History of open heart surgery Hx of AKA (above knee amputation) left Hx of CABG Family History Family History Father Congestive heart failure Mother Diabetes mellitus Cerebrovascular accident Sibling Diabetes mellitus Sibling No problems noted. Social History Social History (Updated 05/29/22 @ 09:01 by Marina Le DO) Social History: Patient lives at home with his , Loan, whom he designates as his surrogate MDM. His PCP is Dr. Kenny. Code status: DNR/DNI (per patient request) Smoking packs per day: 0.5 Smoking cigarettes per day: 10.0 Years smoked: 50 Smoking pack-years: 25.00 Smoking status: Current every day smoker Tobacco type: cigarettes Second hand tobacco smoke exposure: Yes Additional smoking assessment comments: pt states he is not interested in quitting right now Alcohol intake: never Substance use: never Substance u
[2022-05-29] VITALS (13 sets, daily range): BP systolic 101–127; BP diastolic 48–67; PULSE 78–88; RESP 16–20; TEMP 36.7–36.9; O2SAT 100; BMI 16.7
[2022-05-29] MEDS: MELATONIN 3 MG TABLET PO ×2 (01:48→20:55)
[2022-05-29] MEDS: GABAPENTIN 300 MG CAPSULE PO ×3 (01:48→18:53)
[2022-05-29 04:52] LABS: Basophils Absolute Auto 0.1 K/mm3 (0.0-0.1); Basophils Percent Auto 0.3 % (0.2-1.2); Eosinophils Percent Auto 0.1 % (0-4.4); Hemoglobin 7.5 g/dL (14.0-18.0); Immature Granulocyte Absolute 0.25 K/mm3 (0.00-0.031); Immature Granulocyte Percent A 1.3 % (0-0.5); Lymphocytes Absolute Auto 0.41 K/mm3 (0.9-3.2); Lymphocytes Percent Auto 2.2 % (18.3-44.2); Mean Corpuscular Hemoglobin 29.2 pg (26-34); Mean Corpuscular Volume 97.3 fl (80-100); Mean Platelet Volume 8.8 fl (7.4-10.4); Monocytes Percent Auto 5.4 % (2.6-8.5); Neutrophils Absolute Auto 17.1 K/mm3 (1.3-6.7); Neutrophils Percent Auto 90.7 % (45.5-73.1); Platelet Count Result 379 k/mm3 (150-375); Red Blood Count 2.57 M/mm3 (4.6-6.20); Red Cell Distribution Width 17.9 % (11.5-14.5); White Blood Count 18.8 K/mm3 (4.5-10.0)
[2022-05-29 05:03] LABS: Anion Gap 1 mmol/L (8-16); Blood Urea Nitrogen 26 mg/dL (9-20); Calcium 7.5 mg/dL (8.4-10.2); Carbon Dioxide 25 mmol/L (22-30); Chloride 104 mmol/L (98-107); Estimated CRCL calculation 41 ml/min; Estimated Glomerular Filt Rate > 60; Glucose 111 mg/dL (65-110); Sodium 130 mmol/L (137-145)
[2022-05-29] MEDS: MORPHINE SULFATE (*CRX) 2 MG/ML INJ IV PUSH ×2 (05:58→10:25)
--- NOTE | 2022-05-29 09:52 | PCSTNOTE ---
Please refer to the Bedside Swallow Evaluation in the EMR. Please note, silent aspiration cannot be ruled out at bedside.
--- NOTE | 2022-05-29 11:23 | PCSTNOTE ---
Please refer to the Modified Barium Swallow Evaluation in the EMR.
[2022-05-29] MEDS: CYANOCOBALAMIN 1,000 MCG TABLET 1000 MCG PO (12:50)
[2022-05-29] MEDS: APIXABAN 5 MG TABLET PO ×2 (12:50→20:54)
[2022-05-29] MEDS: ATORVASTATIN 40 MG TABLET 80 MG PO (12:50)
[2022-05-29] MEDS: TAMSULOSIN HCL 0.4 MG CAPSULE PO ×2 (12:52→18:54)
[2022-05-29] MEDS: TOLNAFTATE 1% POWDER 45 GM BTL 1 APPLIC TOPICAL ×2 (12:57→20:54)
--- NOTE | 2022-05-29 14:44 | PM.IMPN ---
Progress Note: A&P Assessment and Plan (1) History of infection due to ESBL Klebsiella oxytoca: Code(s): Z86.19 - Personal history of other infectious and parasitic diseases Status: Acute (2) AMS (altered mental status): Code(s): R41.82 - Altered mental status, unspecified Status: Acute (3) Leukocytosis: Code(s): D72.829 - Elevated white blood cell count, unspecified Status: Acute (4) Debility: Code(s): R53.81 - Other malaise Status: Acute (5) Dysphagia: Code(s): R13.10 - Dysphagia, unspecified Status: Acute Plan 76-year-old male with past medical history of left [id number]-[id number]-[id number] amputation, essential hypertension, dyslipidemia, CHF and paroxysmal AFib atrial fibrillation as well as BPH who presented to the ER from [facility] rehab with weakness, fever and altered mental status.? The patient was recently hospitalized in mid April due to Klebsiella pneumonia ESBL bacteremia due to UTI.? 1)Sepsis: c/w Imipenam Await urine and blood culture Monitor leucocytosis 2)Dysphagia: Underwent MBS, cleared for regular diet 3)H/o Afibb:c/w eliquis 4)Code:DNR 5)Dispo:pending improvement Time Spent With Patient Time with patient: 25 - 35 minutes Subjective Date/time seen: 05/29/22 14:44 Interval history: s/p MBS today, no further fever Review of Systems Review of Systems: All systems reviewed & are unremarkable except as noted in HPI and below Exam Const: General: comfortable and no acute distress HENMT: Face/Nose/Sinus: Normal nares present Mouth: Yes moist mucous membranes Eyes: Sclera: sclerae normal Neck: Neck: supple Resp: Effort & Inspection: normal respiratory effort Auscultation: diminished lung sounds Cardio: Rate: regular rate Rhythm: regular rhythm GI: GI Palp: Yes Soft to palpation Auscultation: normal bowel sounds Skin: General skin exam: normal color Neuro: Speech: normal speech Psych: Mental Status: mental status grossly normal Objective Data Vital Signs Vital Signs: Vital Signs - 24 hr 05/28/22 16:44 05/28/22 16:55 05/28/22 16:51 Temperature 98.4 F Pulse Rate 75 75 77 Respiratory Rate 14 13 Blood Pressure 95/50 L 95/50 L Pulse Oximetry 96 Oxygen Delivery Room Air Oxygen Flow Rate 05/28/22 17:16 05/28/22 17:31 05/28/22 18:13 Temperature Pulse Rate 74 74 75 Respiratory Rate 20 17 16 Blood Pressure 79/60 L 86/51 L 94/52 L Pulse Oximetry 96 96 100 Oxygen Delivery Oxygen Flow Rate 05/28/22 18:16 05/28/22 18:31 05/28/22 19:01 Temperature Pulse Rate 75 77 Respiratory Rate 15 16 Blood Pressure 94/55 L 96/52 L Pulse Oximetry 100 96 100 Oxygen Delivery Nasal Cannula Oxygen Flow Rate 3 05/28/22 19:00 05/28/22 19:01 05/28/22 19:15 Temperature Pulse Rate 78 77 81 Respiratory Rate 18 15 17 Blood Pressure 109/51 L Pulse Oximetry Oxygen Delivery Oxygen Flow Rate 05/28/22 19:31 05/28/22 19:32 05/28/22 19:46 Temperature Pulse Rate 76 77 83 Respiratory Rate 13 14 24 H Blood Pressure 112/50 L Pulse Oximetry 95 96 Oxygen Delivery Oxygen Flow Rate 05/28/22 20:00 05/28/22 20:23 05/28/22 20:32 Temperature Pulse Rate 84 79 81 Respiratory Rate 16 15 15 Blood Pressure 95/49 L Pulse Oximetry 96 100 100 Oxygen Delivery Oxygen Flow Rate 05/28/22 20:33 05/28/22 20:47 05/28/22 21:43 Temperature Pulse Rate 81 86 86 Respiratory Rate 15 22 H 22 H Blood Pressure Pulse Oximetry 100 100 Oxygen Delivery Nasal Cannula Oxygen Flow Rate 2 05/28/22 21:20 05/28/22 22:00 05/29/22 00:00 Temperature 97.9 F 98.5 F Pulse Rate 96 83 84 Respiratory Rate 18 16 Blood Pressure 96/78 L 111/52 L Pulse Oximetry 100 100 Oxygen Delivery Oxygen Flow Rate 05/29/22 00:30 05/29/22 00:00 05/29/22 02:00 Temperature Pulse Rate 84 85 86 Respiratory Rate 16 Blood Pressure Pulse Oximetry 100 Oxygen
[2022-05-29] MEDS: SODIUM CHLORIDE 0.9% IV 1,000 ML 75 ML IV CONT (18:53)
[2022-05-29] MEDS: SILVERGEL (ELTA) 45 ML 1 APPLIC TOPICAL (18:55)
[2022-05-30] VITALS (11 sets, daily range): BP systolic 100–120; BP diastolic 52–68; PULSE 79–112; RESP 14–24; TEMP 36.1–37.2; O2SAT 98–100
[2022-05-30 00:16] LABS: Anion Gap 2 mmol/L (8-16); Blood Urea Nitrogen 27 mg/dL (9-20); Calcium 7.4 mg/dL (8.4-10.2); Carbon Dioxide 24 mmol/L (22-30); Chloride 104 mmol/L (98-107); Estimated CRCL calculation 49 ml/min; Estimated Glomerular Filt Rate > 60; Glucose 135 mg/dL (65-110); Magnesium 2.2 mg/dL (1.6-2.3); Potassium 3.7 mmol/L (3.4-5.0); Sodium 130 mmol/L (137-145)
[2022-05-30 05:11] LABS: Basophils Percent Auto 0.3 % (0.2-1.2); Eosinophils Absolute Auto 0.1 K/mm3 (0-0.3); Eosinophils Percent Auto 0.6 % (0-4.4); Hematocrit 25.1 % (42.0-52.0); Hemoglobin 7.6 g/dL (14.0-18.0); Immature Granulocyte Absolute 0.21 K/mm3 (0.00-0.031); Immature Granulocyte Percent A 1.8 % (0-0.5); Lymphocytes Absolute Auto 0.41 K/mm3 (0.9-3.2); Lymphocytes Percent Auto 3.4 % (18.3-44.2); Mean Corpuscular HGB Conc 30.3 g/dl (32-36); Mean Corpuscular Hemoglobin 30.4 pg (26-34); Mean Corpuscular Volume 100.4 fl (80-100); Mean Platelet Volume 8.9 fl (7.4-10.4); Monocytes Absolute Auto 0.7 K/mm3 (0.1-0.6); Monocytes Percent Auto 5.7 % (2.6-8.5); Neutrophils Absolute Auto 10.6 K/mm3 (1.3-6.7); Neutrophils Percent Auto 88.2 % (45.5-73.1); Platelet Count Result 364 k/mm3 (150-375); Red Cell Distribution Width 17.8 % (11.5-14.5)
[2022-05-30 05:24] LABS: Anion Gap 2 mmol/L (8-16); Blood Urea Nitrogen 26 mg/dL (9-20); Calcium 7.7 mg/dL (8.4-10.2); Carbon Dioxide 24 mmol/L (22-30); Chloride 105 mmol/L (98-107); Estimated CRCL calculation 55 ml/min; Estimated Glomerular Filt Rate > 60; Glucose 124 mg/dL (65-110); Potassium 4.2 mmol/L (3.4-5.0); Sodium 131 mmol/L (137-145)
--- NOTE | 2022-05-30 08:29 | PM.IMPN ---
Progress Note: A&P Assessment and Plan (1) History of infection due to ESBL Klebsiella oxytoca: Code(s): Z86.19 - Personal history of other infectious and parasitic diseases Status: Acute (2) AMS (altered mental status): Code(s): R41.82 - Altered mental status, unspecified Status: Acute (3) Leukocytosis: Code(s): D72.829 - Elevated white blood cell count, unspecified Status: Acute (4) Debility: Code(s): R53.81 - Other malaise Status: Acute (5) Dysphagia: Code(s): R13.10 - Dysphagia, unspecified Status: Acute Plan 76-year-old male with past medical history of left qtpai-knk-xllq amputation, essential hypertension, dyslipidemia, CHF and paroxysmal AFib atrial fibrillation as well as BPH who presented to the ER from [facility] rehab with weakness, fever and altered mental status.? The patient was recently hospitalized in mid April due to Klebsiella pneumonia ESBL bacteremia due to UTI.? 1)Sepsis from UTI: Resolving c/w Imipenam Blood cx NGTD Urine cx +GNB, suspect recurrent ESBL Check PVR for urinary retention due to recurrent UTI Check renal US, urology c/s 2)Dysphagia: Underwent MBS, cleared for regular diet 3)H/o Afib: C/w eliquis 4)Code:DNR 5)Dispo:pending improvement Subjective Date/time seen: 05/30/22 08:29 Interval history: No overnight events noted. No chest pain or shortness of breath. No nausea, vomiting or diarrhea. No fevers or chills. Patient feels quite weak. He is concerned due to recurrent UTIs. Review of Systems Review of Systems: 12 point review of systems was assessed and was negative except as noted in the HPI Exam Narrative: General: No acute distress, alert and oriented per baseline HEENT: Atraumatic, normocephalic, mucous membranes moist CV: Regular rate and rhythm, S1, S2 Lungs: Clear to auscultation bilaterally, no rales or crackles noted, no wheezes, good air entry Abdomen: Soft, nontender, nondistended Extremities: Normal to inspection, left AKA Skin: No rashes noted, no lesions or wounds seen Psych: Euthymic, normal affect Objective Data Vital Signs Vital Signs: Vital Signs - 24 hr 05/29/22 12:00 05/29/22 10:00 05/29/22 12:00 Temperature 98.1 F Pulse Rate 83 79 87 Respiratory Rate 16 Blood Pressure 127/55 L Pulse Oximetry 100 Oxygen Delivery Oxygen Flow Rate 05/29/22 12:00 05/29/22 14:00 05/29/22 16:00 Temperature 98.4 F Pulse Rate 86 78 78 Respiratory Rate 16 20 Blood Pressure 103/52 L Pulse Oximetry 100 100 Oxygen Delivery Nasal Cannula Oxygen Flow Rate 2 05/29/22 16:00 05/29/22 16:00 05/29/22 18:00 Temperature Pulse Rate 82 86 79 Respiratory Rate 16 Blood Pressure Pulse Oximetry 100 Oxygen Delivery Nasal Cannula Oxygen Flow Rate 2 05/29/22 20:00 05/29/22 20:00 05/29/22 22:00 Temperature 98.2 F Pulse Rate 88 87 83 Respiratory Rate 16 Blood Pressure 101/49 L Pulse Oximetry 100 Oxygen Delivery Oxygen Flow Rate 05/30/22 00:00 05/30/22 03:58 05/30/22 00:00 Temperature 97.9 F 97.5 F L Pulse Rate 112 H 83 83 Respiratory Rate 16 16 Blood Pressure 112/68 102/52 L Pulse Oximetry 99 100 Oxygen Delivery Oxygen Flow Rate 05/30/22 02:00 05/30/22 04:00 05/30/22 05:40 Temperature Pulse Rate 81 82 79 Respiratory Rate Blood Pressure Pulse Oximetry Oxygen Delivery Oxygen Flow Rate 05/30/22 08:00 Temperature 97 F L Pulse Rate 84 Respiratory Rate 20 Blood Pressure 120/52 L Pulse Oximetry 100 Oxygen Delivery Oxygen Flow Rate Intake/Output Intake/Output: Intake & Output 05/27/22 05/28/22 05/29/22 05/30/22 23:59 23:59 23:59 23:59 Intake Total 1100 1260 Output Total 375 304 Balance 1100 885 -304 Meds/Results Medications: Active Medications Generic Name Dose Route Start Last Admin Trade Name Freq PRN Reason Stop Dose Admin Acetamin
[2022-05-30] MEDS: ACETAMINOPHEN 325 MG TABLET 650 MG PO (08:51)
[2022-05-30] MEDS: SODIUM CHLORIDE 0.9% IV 1,000 ML 75 ML IV CONT (08:51)
[2022-05-30] MEDS: ATORVASTATIN 40 MG TABLET 80 MG PO (08:53)
[2022-05-30] MEDS: APIXABAN 5 MG TABLET PO ×2 (08:53→20:36)
[2022-05-30] MEDS: GABAPENTIN 300 MG CAPSULE PO ×3 (08:53→20:36)
[2022-05-30] MEDS: TAMSULOSIN HCL 0.4 MG CAPSULE PO ×2 (08:53→18:01)
[2022-05-30] MEDS: TOLNAFTATE 1% POWDER 45 GM BTL 1 APPLIC TOPICAL ×2 (08:54→20:35)
[2022-05-30] MEDS: SILVERGEL (ELTA) 45 ML 1 APPLIC TOPICAL (08:54)
--- NOTE | 2022-05-30 08:57 | P.CDI_ITS ---
CDI Query Clarification Request moderate <Jessica Young DO - Last Filed: 05/30/22 10:49> Clarified Diagnosis Clarified Diagnosis: BMI 16.7 Nutritional Diagnostic Statement: Moderate Malnutrition related to increased protein needs in the setting of chronic disease or condition as evidence by less than 75% of estimand needs for greater than 1 month, greater than 5% weight loss in 1 month , noted muscae wasting and fat loss per NFPE Please refer to Nutritional assessment for further information. Please clarify if known Severity of Protein calorie Malnutrition * Mild * Moderate * Severe * Other/ Unspecified. <Estelita Cintron RN - Last Filed: 05/30/22 09:05>
[2022-05-30] MEDS: MORPHINE SULFATE (*CRX) 2 MG/ML INJ IV PUSH (10:20)
[2022-05-30] MEDS: oxyCODONE/ACETAMINOPHEN (*CRX) 5-325 MG TABLET 1 TABLET PO ×2 (15:38→23:26)
--- NOTE | 2022-05-30 17:39 | PC.NURSE ---
This patient, Porfirio Pabon, was transferred to [[id number] ] on 05/30/22 at 1739. Personal belongings sent with patient. Report given to [ Alok]. Appropriate documentation sent with patient.
--- NOTE | 2022-05-30 18:06 | PC.NURSE ---
This patient, Porfirio Pabon, was received from IMU on 05/30/22 at 1806. Patient/family oriented to unit policies and routines
[2022-05-30] MEDS: MELATONIN 3 MG TABLET PO (20:36)
[2022-05-31] VITALS: BP 114/57; PULSE 97; RESP 16; TEMP 36.5; O2SAT 98
[2022-05-31 06:00] VITALS: BP 112/60; PULSE 93; RESP 16; TEMP 36.6; O2SAT 69
[2022-05-31 06:55] LABS: Hematocrit 23.6 % (42.0-52.0); Hemoglobin 7.2 g/dL (14.0-18.0); Mean Corpuscular HGB Conc 30.5 g/dl (32-36); Mean Corpuscular Hemoglobin 29.8 pg (26-34); Mean Corpuscular Volume 97.5 fl (80-100); Mean Platelet Volume 8.9 fl (7.4-10.4); Platelet Count Result 387 k/mm3 (150-375); Red Blood Count 2.42 M/mm3 (4.6-6.20); Red Cell Distribution Width 17.5 % (11.5-14.5); White Blood Count 11.5 K/mm3 (4.5-10.0)
[2022-05-31 07:06] LABS: Alanine Aminotransferase 26 U/L (6-50); Albumin Level 1.9 g/dL (3.5-5.1); Alkaline Phosphatase 50 U/L (38-126); Anion Gap 0 mmol/L (8-16); Aspartate Amino Transferase 38 U/L (17-59); Bilirubin,Total 0.3 mg/dL (0.2-1.3); Blood Urea Nitrogen 20 mg/dL (9-20); Calcium 7.3 mg/dL (8.4-10.2); Carbon Dioxide 21 mmol/L (22-30); Chloride 108 mmol/L (98-107); Estimated CRCL calculation 62 ml/min; Estimated Glomerular Filt Rate > 60; Glucose 106 mg/dL (65-110); Potassium 3.6 mmol/L (3.4-5.0); Sodium 129 mmol/L (137-145)
[2022-05-31 08:33] VITALS: O2SAT 97
[2022-05-31 09:01] LABS: Band Neutrophils Percent 25 % (0-6); Eosinophils Absolute Manual 0.11 K/mm3 (0.02-0.5); Eosinophils Percent Manual 1 % (0-4); Lymphocytes Absolute Manual 0.57 K/mm3 (1.1-4.5); Monocytes Absolute Manual 0.11 K/mm3 (0.1-0.90); Monocytes Percent Manual 1 % (3-9); Neutrophils Absolute Manual 10.69 K/mm3 (1.3-6.7); Neutrophils Percent Manual 68 % (46-73); Platelet Estimate Adequate (Adequate); Total Cells Counted 100
[2022-05-31 09:02] LABS: Anisocytosis 1+ (NORMAL); Burr Cells 1+ (NORMAL); Hypochromasia 1+ (NORMAL); Macrocytosis 1+ (NORMAL); Schistocytes Rare (NORMAL)
[2022-05-31] MEDS: GABAPENTIN 300 MG CAPSULE PO ×3 (09:08→17:17)
[2022-05-31] MEDS: TAMSULOSIN HCL 0.4 MG CAPSULE PO ×2 (09:08→17:17)
[2022-05-31] MEDS: ATORVASTATIN 40 MG TABLET 80 MG PO (09:08)
[2022-05-31] MEDS: SILVERGEL (ELTA) 45 ML 1 APPLIC TOPICAL (09:09)
[2022-05-31] MEDS: APIXABAN 5 MG TABLET PO ×2 (09:09→20:40)
[2022-05-31] MEDS: TOLNAFTATE 1% POWDER 45 GM BTL 1 APPLIC TOPICAL ×2 (09:09→20:41)
[2022-05-31] MEDS: oxyCODONE/ACETAMINOPHEN (*CRX) 5-325 MG TABLET 1 TABLET PO ×2 (09:12→20:40)
--- NOTE | 2022-05-31 11:02 | PC.NURSE ---
Pt. states he is not circumcised, asking for foreskin to be put back into place. Pt. had Da Silva catheter inserted prior to this nurse coming on to shift. Attempted to put back foreskin on penis but unable to do so. Will continue to try and reach MD for patient.
--- NOTE | 2022-05-31 11:13 | PCNFU ---
Nutrition Follow-Up Complete: Moderate malnutrition related to increased protein needs in the setting of chronic disease or condition as evidenced by less than 75% of estimated needs for greater than 1 month, greater than 5% weight loss in 1 month, noted muscle wasting and fat loss per NFPE Goal: PO intake greater than 50% or meals Patient is progressing towards goal. We will continue current goal. Pt current nutrition is Regular with Nutritional Ice Cream BID and Stanislav BID. Last recorded weight is 55.4 kg. Bowel Motility:+Bm reported 05/31 Labs Reviewed:Na 129,Alb 1.9 Meds Noted:Eliquis, Neurontin,Lipitor Skin: unstageable PU-sacrum Additional Notes: Patient remains on a regular diet. Oral Intake about 50% of meals. Spoke with nursing today, multiple stools noted. Stool culture ordered. Recommend adding Banatrol Plus if patient is CDiff +. Protein Modular of Stanislav BID providing an additional 90 kcals and 2.5 gms protein and Nutritional Ice Cream BID providing 290 kcals and 9 gms protein. Agree with diet orders. Monitor intake, wt, labs. Follow up in 5 days.
[2022-05-31 11:47] LABS: Toxigenic C. Diff POSITIVE (NEGATIVE)
[2022-05-31 13:57] VITALS: BP 118/63; PULSE 97; RESP 14; TEMP 36.3; O2SAT 100
--- NOTE | 2022-05-31 16:08 | WPDURCON ---
Assessment and Plan Assessment and plan (1) History of infection due to ESBL Klebsiella oxytoca: Code(s): Z86.19 - Personal history of other infectious and parasitic diseases Status: Acute Assessment and Plan: Continue IV Ertapenem. No further suggestions at this time. TAMMY normal, recent Cysto in 02/13 was normal. (2) Urine retention: Code(s): R33.9 - Retention of urine, unspecified Status: Acute Assessment and Plan: Urodynamic study in 12/14 showed obstruction of the prostate, however the Urolift was unsuccessful. I recommend a repeat urodynamics test to rule out an atonic bladder d/t multiple failed voiding trials. Continue monthly shannon changes until Urodynamics is scheduled. (3) Prostate cancer: Code(s): C61 - Malignant neoplasm of prostate Status: Acute (4) History of bladder cancer: Code(s): Z85.51 - Personal history of malignant neoplasm of bladder Status: Acute Assessment and Plan: F/U as planned for cystoscopy in office 08/[address] Whalen. Urology Consult Note HPI Date Seen: 05/31/22 Time Seen: 12:50 Requesting Physician: Bryan Lazaro MD Primary Care Provider: Som Kenny MD Consult Narrative Reason for consult: UTI Narrative: Porfirio Pabon is a 76 year old male who presented to the ER with altered mental status changes and fever on 05/28/22 from the [place] where he resides. He has a chronic shannon catheter and has monthly changes done. He has had a Urolift procedure with Dr. Whalen and was also diagnosed with prostate cancer and bladder cancer. His last TURBT was in 12/2019. His urine culture this visit grew Klebsiella ESBL sensitive to Ertapenem which he remains on currently. His WBC is 12.0, creatinine is 0.70 and he is afebrile. He had a TAMMY that was negative. His most recent cystoscopy was in 02/13 when his Urolift was performed and he had no bladder tumors present at that time. He states he has failed several voiding trials after his Urolift unfortunatley. Review of Systems Cardiovascular: Cardiovascular: Denies chest pain Respiratory: Respiratory: Reports no additional respiratory complaints Gastrointestinal: Gastrointestinal: Denies abdominal pain, Denies nausea and Denies vomiting Genitourinary: Genitourinary: Denies hematuria, Denies flank pain and Reports urinary hesitancy COUNTS INCLUDE 234 BEDS AT THE [facility] Past Medical History Medical History Arthritis Basal cell carcinoma (BCC) on face removed in 2011 CAD (coronary artery disease) CHF (congestive heart failure) Cough CVA (cerebral vascular accident) Cyst of right kidney DDD (degenerative disc disease) Enlarged prostate Farsightedness Foot fracture, left History of left above knee amputation History of stroke with current residual effects HTN (hypertension) Hypercholesteremia Left ear hearing loss Myocardial infarction Renal disease Surgical History Surgical History H/O plastic surgery On ankle for infected dog bite History of cardiac cath History of open heart surgery Hx of AKA (above knee amputation) left Hx of CABG Family History Family History Father Congestive heart failure Mother Diabetes mellitus Cerebrovascular accident Sibling Diabetes mellitus Sibling No problems noted. Social History Social History Social History: Patient lives at home with his , Loan, whom he designates as his surrogate MDM. His PCP is Dr. Kenny. Code status: DNR/DNI (per patient request) Smoking packs per day: 0.5 Smoking cigarettes per day: 10.0 Years smoked: 50 Smoking pack-years: 25.00 Smoking status: Current every day smoker Tobacco type: cigarettes Second hand tobacco smoke
[2022-05-31] MEDS: ERTAPENEM 1 GM/NS 50 ML 1 GM/50 ML BAG IVPB (17:16)
[2022-05-31] MEDS: VANCOMYCIN ORAL 125 MG/2.5 ML SYRUP PO ×2 (17:17→23:49)
--- NOTE | 2022-05-31 19:03 | PM.IMPN ---
Progress Note: A&P Assessment and Plan (1) History of infection due to ESBL Klebsiella oxytoca: Code(s): Z86.19 - Personal history of other infectious and parasitic diseases Status: Acute (2) AMS (altered mental status): Code(s): R41.82 - Altered mental status, unspecified Status: Acute (3) Leukocytosis: Code(s): D72.829 - Elevated white blood cell count, unspecified Status: Acute (4) Debility: Code(s): R53.81 - Other malaise Status: Acute (5) Dysphagia: Code(s): R13.10 - Dysphagia, unspecified Status: Acute Plan 76-year-old male with past medical history of left stbmv-yro-vimq amputation, essential hypertension, dyslipidemia, CHF and paroxysmal AFib atrial fibrillation as well as BPH who presented to the ER from [facility] rehab with weakness, fever and altered mental status.? The patient was recently hospitalized in mid April due to Klebsiella pneumonia ESBL bacteremia due to UTI.? Sepsis from UTI: Resolving Leukocytosis improving Change imipenem to ertapenem Repeat blood cultures ordered and pending Blood positive for ESBL Urine cx +GNB, ESBL Check PVR for urinary retention due to recurrent UTI Renal ultrasound within normal limits Appreciate urology consultation Dysphagia: Underwent MBS, cleared for regular diet H/o Afib: C/w eliquis Hyponatremia: Sodium 129 Unsure of etiology, monitor, if still low tomorrow, would trial IV fluids Severe malnutrition: Albumin 1.9, continue dietary supplements Anemia of unknown etiology: Check stool occult blood, pending Hemoglobin 7.2 today, monitor Check iron studies, B12, folic Previous admission also showed anemia In April 2022, GI was consulted, EGD and colonoscopy performed, 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 No chest pain or shortness of breath. No nausea, vomiting or diarrhea. No fevers or chills. Patient feels quite weak. He is concerned due to recurrent UTIs. States he feels about the same as yesterday. Review of Systems Review of Systems: 12 point review of systems was assessed and was negative except as noted in the HPI Exam Narrative: General: No acute distress, alert and oriented per baseline HEENT: Atraumatic, normocephalic, mucous membranes moist CV: Regular rate and rhythm, S1, S2 Lungs: Clear to auscultation bilaterally, no rales or crackles noted, no wheezes, good air entry Abdomen: Soft, nontender, nondistended Extremities: Normal to inspection, left AKA Skin: No rashes noted, no lesions or wounds seen Psych: Euthymic, normal affect Objective Data Vital Signs Vital Signs: Vital Signs - 24 hr 05/30/22 20:00 05/31/22 00:00 05/31/22 06:00 Temperature 97.7 F 97.9 F Pulse Rate 97 93 Respiratory Rate 16 16 Blood Pressure 114/57 L 112/60 Pulse Oximetry 98 69 L Oxygen Delivery Room Air 05/31/22 08:33 05/31/22 10:54 05/31/22 13:57 Temperature 97.3 F L Pulse Rate 97 Respiratory Rate 14 Blood Pressure 118/63 Pulse Oximetry 97 100 Oxygen Delivery Room Air Intake/Output Intake/Output: Intake & Output 05/28/22 05/29/22 05/30/22 05/31/22 23:59 23:59 23:59 23:59 Intake Total 1100 1260 3240 1230 Output Total 375 1154 1050 Balance 8247 716 2319 180 Meds/Results Medications: Active Medications Generic Name Dose Route Start Last Admin Trade Name Freq PRN Reason Stop Dose Admin Acetaminophen 650 mg 05/28/22 18:51 05/30/22 08:51 Acetaminophen 325 Mg Tablet PO 650 mg Q4H PRN Administration Mild Pain (1-3) or Fever Apixaban 5 mg 05/29/22 09:00 05/31/22 09:09 Apixaban 5 Mg Tablet PO 5 mg Q12HR MANOLO Administration Atorvastatin Calcium 80 mg 05/29/22 09:00
[2022-05-31] MEDS: MELATONIN 3 MG TABLET PO (20:40)
[2022-05-31 20:50] VITALS: BP 108/62; PULSE 77; RESP 16; TEMP 37.1; O2SAT 98
[2022-05-31 21:15] LABS: Folic Acid 4.8 ng/mL (2.76->20)
[2022-06-01 04:17] LABS: IFOB Positive Control Positive; Immunochemical Fecal Occult Bl Positive (N)
[2022-06-01 04:57] LABS: Iron < 10 ug/dL (49-181)
[2022-06-01 05:07] LABS: Percent Iron Saturation < 8 % (20-50)
[2022-06-01 05:45] VITALS: BP 110/82; PULSE 79; RESP 16; TEMP 36.3; O2SAT 99
[2022-06-01] MEDS: VANCOMYCIN ORAL 125 MG/2.5 ML SYRUP PO ×4 (05:57→23:13)
[2022-06-01 07:10] LABS: Hematocrit 23.1 % (42.0-52.0); Hemoglobin 7.1 g/dL (14.0-18.0); Mean Corpuscular HGB Conc 30.7 g/dl (32-36); Mean Corpuscular Hemoglobin 29.7 pg (26-34); Mean Corpuscular Volume 96.7 fl (80-100); Mean Platelet Volume 8.9 fl (7.4-10.4); Platelet Count Result 404 k/mm3 (150-375); Red Blood Count 2.39 M/mm3 (4.6-6.20); Red Cell Distribution Width 17.5 % (11.5-14.5); White Blood Count 11.5 K/mm3 (4.5-10.0)
[2022-06-01 07:18] LABS: Alanine Aminotransferase 26 U/L (6-50); Albumin Level 1.9 g/dL (3.5-5.1); Alkaline Phosphatase 54 U/L (38-126); Anion Gap 1 mmol/L (8-16); Aspartate Amino Transferase 34 U/L (17-59); Bilirubin,Total 0.3 mg/dL (0.2-1.3); Blood Urea Nitrogen 17 mg/dL (9-20); Calcium 7.3 mg/dL (8.4-10.2); Carbon Dioxide 24 mmol/L (22-30); Chloride 105 mmol/L (98-107); Estimated CRCL calculation 62 ml/min; Estimated Glomerular Filt Rate > 60; Glucose 95 mg/dL (65-110); Potassium 3.5 mmol/L (3.4-5.0); Sodium 130 mmol/L (137-145)
[2022-06-01 08:04] LABS: Total Cells Counted 100
[2022-06-01 08:05] LABS: Band Neutrophils Percent 6 % (0-6); Eosinophils Absolute Manual 0.11 K/mm3 (0.02-0.5); Eosinophils Percent Manual 1 % (0-4); Lymphocytes Absolute Manual 0.34 K/mm3 (1.1-4.5); Lymphocytes Percent Manual 3 % (18-44); Monocytes Absolute Manual 1.15 K/mm3 (0.1-0.90); Monocytes Percent Manual 10 % (3-9); Neutrophils Absolute Manual 9.89 K/mm3 (1.3-6.7); Neutrophils Percent Manual 80 % (46-73)
[2022-06-01 08:06] LABS: Anisocytosis 1+ (NORMAL); Nucleated Red Blood Cells 1 %; Schistocytes None Seen (NORMAL)
[2022-06-01] MEDS: ATORVASTATIN 40 MG TABLET 80 MG PO (09:23)
[2022-06-01] MEDS: SILVERGEL (ELTA) 45 ML 1 APPLIC TOPICAL (09:23)
[2022-06-01] MEDS: TAMSULOSIN HCL 0.4 MG CAPSULE PO ×2 (09:23→17:56)
[2022-06-01] MEDS: APIXABAN 5 MG TABLET PO ×2 (09:23→21:34)
[2022-06-01] MEDS: GABAPENTIN 300 MG CAPSULE PO ×3 (09:23→17:56)
[2022-06-01] MEDS: TOLNAFTATE 1% POWDER 45 GM BTL 1 APPLIC TOPICAL ×2 (09:24→21:34)
[2022-06-01] MEDS: oxyCODONE/ACETAMINOPHEN (*CRX) 5-325 MG TABLET 1 TABLET PO ×2 (09:27→18:40)
--- NOTE | 2022-06-01 13:07 | PM.IMPN ---
Progress Note: A&P Assessment and Plan (1) History of infection due to ESBL Klebsiella oxytoca: Code(s): Z86.19 - Personal history of other infectious and parasitic diseases Status: Acute (2) AMS (altered mental status): Code(s): R41.82 - Altered mental status, unspecified Status: Acute (3) Leukocytosis: Code(s): D72.829 - Elevated white blood cell count, unspecified Status: Acute (4) Debility: Code(s): R53.81 - Other malaise Status: Acute (5) Dysphagia: Code(s): R13.10 - Dysphagia, unspecified Status: Acute Plan 76-year-old male with past medical history of left mbhpy-jrf-thlm amputation, essential hypertension, dyslipidemia, CHF and paroxysmal AFib atrial fibrillation as well as BPH who presented to the ER from [facility] rehab with weakness, fever and altered mental status.? The patient was recently hospitalized in mid April due to Klebsiella pneumonia ESBL bacteremia due to UTI.? Sepsis from UTI: Resolving Leukocytosis improving Change imipenem to ertapenem, would treat for an extended period at this point, perhaps there is prostatitis? would favor 21 day course, potential end date 06/20/22 Repeat blood cultures ordered and pending Blood positive for ESBL Urine cx +GNB, ESBL Check PVR for urinary retention due to recurrent UTI Renal ultrasound within normal limits Appreciate urology consultation Recheck CRP + PCT tomorrow Dysphagia: Underwent MBS, cleared for regular diet H/o Afib: C/w eliquis Hyponatremia: Sodium improved to 130 Unsure of etiology, monitor, if still low tomorrow, would trial IV fluids Severe malnutrition: Albumin 1.9, continue dietary supplements Anemia of unknown etiology: Check stool occult blood, pending Hemoglobin 7.2 today, monitor Check iron studies, B12, folic Previous admission also showed anemia In April 2022, GI was consulted, EGD and colonoscopy performed, 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 No chest pain or shortness of breath. No nausea, vomiting or diarrhea. No fevers or chills. Review of Systems Review of Systems: 12 point review of systems was assessed and was negative except as noted in the HPI Exam Narrative: General: No acute distress, alert and oriented per baseline, cachectic, chronically ill-appearing male HEENT: Atraumatic, normocephalic, mucous membranes moist CV: Regular rate and rhythm, S1, S2 Lungs: Clear to auscultation bilaterally, no rales or crackles noted, no wheezes, good air entry Abdomen: Soft, nontender, nondistended Extremities: Normal to inspection, left AKA Skin: No rashes noted, no lesions or wounds seen Psych: Euthymic, normal affect Objective Data Vital Signs Vital Signs: Vital Signs - 24 hr 05/31/22 13:57 05/31/22 20:50 05/31/22 20:00 Temperature 97.3 F L 98.8 F Pulse Rate 97 77 Respiratory Rate 14 16 Blood Pressure 118/63 108/62 Pulse Oximetry 100 98 Oxygen Delivery Room Air 06/01/22 05:45 Temperature 97.3 F L Pulse Rate 79 Respiratory Rate 16 Blood Pressure 110/82 Pulse Oximetry 99 Oxygen Delivery Intake/Output Intake/Output: Intake & Output 05/29/22 05/30/22 05/31/22 06/01/22 23:59 23:59 23:59 23:59 Intake Total 1260 3240 1230 580 Output Total 375 1154 1050 500 Balance 885 2086 180 80 Meds/Results Medications: Active Medications Generic Name Dose Route Start Last Admin Trade Name Freq PRN Reason Stop Dose Admin Acetaminophen 650 mg 05/28/22 18:51 05/30/22 08:51 Acetaminophen 325 Mg Tablet PO 650 mg Q4H PRN Administration Mild Pain (1-3) or Fever Apixaban 5 mg 05/29/22 09:00 06/01/22 09:23 Apixaban 5 Mg Tablet PO 5 mg Q12HR MANOLO Admi
[2022-06-01 14:00] VITALS: BP 123/71; PULSE 93; RESP 20; TEMP 36.4; O2SAT 100
[2022-06-01] MEDS: ERTAPENEM 1 GM/NS 50 ML 1 GM/50 ML BAG IVPB (17:56)
[2022-06-01] MEDS: MELATONIN 3 MG TABLET PO (21:40)
[2022-06-01] MEDS: ACETAMINOPHEN 325 MG TABLET 650 MG PO (21:40)
[2022-06-01 22:00] VITALS: BP 107/62; PULSE 95; RESP 20; TEMP 37.2; O2SAT 98
[2022-06-02 06:00] VITALS: BP 104/46; PULSE 49; RESP 20; TEMP 36.1; O2SAT 99
[2022-06-02 06:13] LABS: Hematocrit 24.9 % (42.0-52.0); Hemoglobin 7.6 g/dL (14.0-18.0); Mean Corpuscular HGB Conc 30.5 g/dl (32-36); Mean Corpuscular Hemoglobin 29.7 pg (26-34); Mean Corpuscular Volume 97.3 fl (80-100); Mean Platelet Volume 8.7 fl (7.4-10.4); Platelet Count Result 441 k/mm3 (150-375); Red Blood Count 2.56 M/mm3 (4.6-6.20); Red Cell Distribution Width 17.5 % (11.5-14.5); White Blood Count 12.2 K/mm3 (4.5-10.0)
[2022-06-02] MEDS: oxyCODONE/ACETAMINOPHEN (*CRX) 5-325 MG TABLET 1 TABLET PO (06:14)
[2022-06-02] MEDS: VANCOMYCIN ORAL 125 MG/2.5 ML SYRUP PO ×3 (06:14→17:19)
[2022-06-02 06:25] LABS: Alanine Aminotransferase 25 U/L (6-50); Albumin Level 1.9 g/dL (3.5-5.1); Alkaline Phosphatase 58 U/L (38-126); Anion Gap 2 mmol/L (8-16); Aspartate Amino Transferase 26 U/L (17-59); Bilirubin,Total 0.3 mg/dL (0.2-1.3); Blood Urea Nitrogen 16 mg/dL (9-20); CRP 7.9 mg/dL (<1.0); Calcium 7.3 mg/dL (8.4-10.2); Carbon Dioxide 24 mmol/L (22-30); Chloride 107 mmol/L (98-107); Estimated CRCL calculation 62 ml/min; Estimated Glomerular Filt Rate > 60; Glucose 88 mg/dL (65-110); Potassium 3.8 mmol/L (3.4-5.0); Sodium 133 mmol/L (137-145)
[2022-06-02 07:23] LABS: Procalcitonin 0.5 ng/mL
[2022-06-02 07:35] LABS: Band Neutrophils Percent 19 % (0-6); Lymphocytes Absolute Manual 0.48 K/mm3 (1.1-4.5); Metamyelocytes Percent 2 %; Neutrophils Absolute Manual 11.46 K/mm3 (1.3-6.7); Neutrophils Percent Manual 75 % (46-73); Platelet Clumps Present; Platelet Estimate Increased (Adequate); Total Cells Counted 100
[2022-06-02 07:36] LABS: Anisocytosis 1+ (NORMAL); Burr Cells 1+ (NORMAL); Helmet Cells 1+ (NORMAL); Ovalocytes 1+ (NORMAL); Schistocytes None Seen (NORMAL)
[2022-06-02 07:37] LABS: Poikilocytosis 1+ (NORMAL)
[2022-06-02] MEDS: APIXABAN 5 MG TABLET PO ×2 (09:29→20:33)
[2022-06-02] MEDS: ATORVASTATIN 40 MG TABLET 80 MG PO (09:29)
[2022-06-02] MEDS: TAMSULOSIN HCL 0.4 MG CAPSULE PO ×2 (09:30→17:19)
[2022-06-02] MEDS: GABAPENTIN 300 MG CAPSULE PO ×3 (09:30→17:19)
[2022-06-02] MEDS: TOLNAFTATE 1% POWDER 45 GM BTL 1 APPLIC TOPICAL ×2 (09:31→20:33)
[2022-06-02] MEDS: SILVERGEL (ELTA) 45 ML 1 APPLIC TOPICAL (09:31)
--- NOTE | 2022-06-02 10:28 | PM.IMPN ---
Progress Note: A&P Assessment and Plan (1) History of infection due to ESBL Klebsiella oxytoca: Code(s): Z86.19 - Personal history of other infectious and parasitic diseases Status: Acute (2) AMS (altered mental status): Code(s): R41.82 - Altered mental status, unspecified Status: Acute (3) Leukocytosis: Code(s): D72.829 - Elevated white blood cell count, unspecified Status: Acute (4) Debility: Code(s): R53.81 - Other malaise Status: Acute (5) Dysphagia: Code(s): R13.10 - Dysphagia, unspecified Status: Acute Plan 76-year-old male with past medical history of left fennk-drv-ottt amputation, essential hypertension, dyslipidemia, CHF and paroxysmal AFib atrial fibrillation as well as BPH who presented to the ER from [facility] rehab with weakness, fever and altered mental status.? The patient was recently hospitalized in mid April due to Klebsiella pneumonia ESBL bacteremia due to UTI.? Sepsis from UTI: Resolving Cont ertapenem, would treat for an extended period at this point, perhaps there is prostatitis? would favor 21 day course, potential end date 06/20/22? would need prison IV access placed Repeat blood cultures NGTD, cont to monitor Blood positive for ESBL, Urine cx +GNB, ESBL Renal ultrasound within normal limits Appreciate urology consultation, unsure of duration of abx? 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 CRP + PCT trending down significantly, leuk fluctuating, slightly increased today, cont current management and recheck tomorrow, may need to trial more aggressive cdif treatment if symptoms worsen Dysphagia: Underwent MBS, cleared for regular diet H/o Afib: C/w eliquis Hyponatremia: Sodium improved to 133 Unsure of etiology, monitor, if still low tomorrow, would trial IV fluids Severe malnutrition: Albumin 1.9, continue dietary supplements start remeron to potentially stimulate appetite and address dysthymia/flattened affect, ?depression Anemia of unknown etiology: stool occult positive, hold off on consulting GI, likely 2/2 cdif, consult GI if hgb cont to drop Hemoglobin 7-8, stable, monitor iron studies quite low give venofer 500 mg q24h x 3 doses b12 wnl Previous admission also showed anemia, in April 2022, GI was consulted, EGD and colonoscopy performed, 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 No chest pain or shortness of breath. No nausea, vomiting or diarrhea. No fevers or chills. Spoke with who was at bedside at length. is most worried about nutritional as the patient has not been eating. She also notes that has some progressively more depressed over the last few months and she thinks this may be why he is eating less in addition to the infections. Review of Systems Review of Systems: 12 point review of systems was assessed and was negative except as noted in the HPI Exam Narrative: General: No acute distress, alert and oriented per baseline, cachectic, chronically ill-appearing male HEENT: Atraumatic, normocephalic, mucous membranes moist CV: Regular rate and rhythm, S1, S2 Lungs: Clear to auscultation bilaterally, no rales or crackles noted, no wheezes, good air entry Abdomen: Soft, nontender, nondistended Extremities: Normal to inspection, left AKA Skin: No rashes noted, no lesions or wounds seen Psych: Dysthymic, flat affect Objective Data Vital Signs Vital Signs: Vital Signs - 24 hr 06/01/22 14:00 06/01/22 21:30 06/01/22 22:00 Temperature 97.5 F L 99.0 F Pulse Rate 93 95 Respiratory Rate 20 20 Blood Pressure 123/71 107/
[2022-06-02] MEDS: IRON SUCROSE COMPLEX 500 MG in SODIUM CHLORIDE 0.9% IV 250 ML 78.57 MG IVPB (11:11)
[2022-06-02 14:00] VITALS: BP 114/57; PULSE 98; RESP 16; TEMP 36.6; O2SAT 91
[2022-06-02] MEDS: ERTAPENEM 1 GM/NS 50 ML 1 GM/50 ML BAG IVPB (17:18)
[2022-06-02] MEDS: MIRTAZAPINE 15 MG TABLET PO (20:33)
[2022-06-02] MEDS: MELATONIN 3 MG TABLET PO (20:33)
[2022-06-02 22:00] VITALS: BP 105/46; PULSE 54; RESP 20; TEMP 36.7; O2SAT 96
--- NOTE | 2022-06-03 03:07 | PC.NURSE ---
Daylight Savings Time For Daylight Savings Time Ending in the Fall - Clocks are moved back. For Daylight Savings Time Beginning in the Spring - Clocks are moved ahead. For [facility], the time of change occurs at 0200 hrs. Time is taken from the server software engineer. This entry on the patient's chart recognizes the change in time reflected during documentation. Example: 2 entries for vital signs may be charted for 0200 hrs.
[2022-06-03 06:00] VITALS: BP 115/58; PULSE 102; RESP 18; TEMP 37.2; O2SAT 96
[2022-06-03] MEDS: VANCOMYCIN ORAL 125 MG/2.5 ML SYRUP PO ×4 (06:00→17:05)
[2022-06-03 07:01] LABS: Hemoglobin 7.8 g/dL (14.0-18.0); Mean Corpuscular Hemoglobin 29.4 pg (26-34); Mean Corpuscular Volume 98.1 fl (80-100); Mean Platelet Volume 8.8 fl (7.4-10.4); Platelet Count Result 511 k/mm3 (150-375); Red Blood Count 2.65 M/mm3 (4.6-6.20); Red Cell Distribution Width 18.2 % (11.5-14.5)
[2022-06-03 07:12] LABS: Alanine Aminotransferase 20 U/L (6-50); Albumin Level 1.9 g/dL (3.5-5.1); Alkaline Phosphatase 61 U/L (38-126); Anion Gap 1 mmol/L (8-16); Aspartate Amino Transferase 20 U/L (17-59); Bilirubin,Total 0.4 mg/dL (0.2-1.3); Blood Urea Nitrogen 13 mg/dL (9-20); Calcium 7.3 mg/dL (8.4-10.2); Carbon Dioxide 27 mmol/L (22-30); Chloride 107 mmol/L (98-107); Estimated CRCL calculation 66 ml/min; Estimated Glomerular Filt Rate > 60; Glucose 92 mg/dL (65-110); Potassium 3.7 mmol/L (3.4-5.0); Sodium 135 mmol/L (137-145)
[2022-06-03 08:38] LABS: Band Neutrophils Percent 15 % (0-6); Hypochromasia 1+ (NORMAL); Lymphocytes Absolute Manual 0.34 K/mm3 (1.1-4.5); Monocytes Absolute Manual 0.34 K/mm3 (0.1-0.90); Monocytes Percent Manual 2 % (3-9); Neutrophils Absolute Manual 16.32 K/mm3 (1.3-6.7); Neutrophils Percent Manual 81 % (46-73); Platelet Estimate Increased (Adequate); Poikilocytosis 1+ (NORMAL); Schistocytes Rare (NORMAL); Total Cells Counted 100
[2022-06-03] MEDS: TAMSULOSIN HCL 0.4 MG CAPSULE PO ×2 (09:30→17:06)
[2022-06-03] MEDS: GABAPENTIN 300 MG CAPSULE PO ×3 (09:30→17:05)
[2022-06-03] MEDS: APIXABAN 5 MG TABLET PO ×2 (09:30→21:01)
[2022-06-03] MEDS: CYANOCOBALAMIN 1,000 MCG TABLET 1000 MCG PO (09:30)
[2022-06-03] MEDS: ATORVASTATIN 40 MG TABLET 80 MG PO (09:30)
[2022-06-03] MEDS: TOLNAFTATE 1% POWDER 45 GM BTL 1 APPLIC TOPICAL ×2 (09:31→21:01)
[2022-06-03] MEDS: IRON SUCROSE COMPLEX 500 MG in SODIUM CHLORIDE 0.9% IV 250 ML 78.57 MG IVPB (09:31)
[2022-06-03] MEDS: SILVERGEL (ELTA) 45 ML 1 APPLIC TOPICAL (09:31)
[2022-06-03] MEDS: ACETAMINOPHEN 325 MG TABLET 650 MG PO ×2 (13:01→21:02)
--- NOTE | 2022-06-03 13:05 | PM.IMPN ---
Progress Note: A&P Assessment and Plan (1) History of infection due to ESBL Klebsiella oxytoca: Code(s): Z86.19 - Personal history of other infectious and parasitic diseases Status: Acute (2) AMS (altered mental status): Code(s): R41.82 - Altered mental status, unspecified Status: Acute (3) Leukocytosis: Code(s): D72.829 - Elevated white blood cell count, unspecified Status: Acute (4) Debility: Code(s): R53.81 - Other malaise Status: Acute (5) Dysphagia: Code(s): R13.10 - Dysphagia, unspecified Status: Acute Plan 76-year-old male with past medical history of left eqlyw-hlg-cbqo amputation, essential hypertension, dyslipidemia, CHF and paroxysmal AFib atrial fibrillation as well as BPH who presented to the ER from [facility] rehab with weakness, fever and altered mental status.? The patient was recently hospitalized in mid April due to Klebsiella pneumonia ESBL bacteremia due to UTI.? Sepsis from UTI: Resolving Cont ertapenem, would treat for an extended period at this point, perhaps there is prostatitis? would favor 21 day course, potential end date 06/20/22? would need [facility] IV access placed Repeat blood cultures NGTD, cont to monitor Blood positive for ESBL, Urine cx +GNB, ESBL, sens imipenem Renal ultrasound within normal limits Appreciate urology consultation, unsure of duration of abx? 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 CRP + PCT trending down significantly, leuk still elevated, much worse today--up to 17, bandemia improving, diarrhea improving, unsure of etiology of worsening leukocytosis, clinically improving, may need to trial more aggressive cdif treatment? Dysphagia: Underwent MBS, cleared for regular diet H/o Afib: C/w eliquis Hyponatremia: Sodium improved to 133 Unsure of etiology, monitor, if still low tomorrow, would trial IV fluids Severe malnutrition: Albumin 1.9, continue dietary supplements start remeron to potentially stimulate appetite and address dysthymia/flattened affect, ?depression Anemia of unknown etiology: stool occult positive, hold off on consulting GI, likely 2/2 cdif, consult GI if hgb cont to drop Hemoglobin 7-8, stable, monitor iron studies quite low give venofer 500 mg q24h x 3 doses b12 wnl Previous admission also showed anemia, in April 2022, GI was consulted, EGD and colonoscopy performed, 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 No chest pain or shortness of breath. No nausea, vomiting. No fevers or chills. Some diarrhea, seems stable. Review of Systems Review of Systems: 12 point review of systems was assessed and was negative except as noted in the HPI Exam Narrative: General: No acute distress, alert and oriented per baseline, cachectic, chronically ill-appearing male HEENT: Atraumatic, normocephalic, mucous membranes moist CV: Regular rate and rhythm, S1, S2 Lungs: Clear to auscultation bilaterally, no rales or crackles noted, no wheezes, good air entry Abdomen: Soft, nontender, nondistended Extremities: Normal to inspection, left AKA Skin: No rashes noted, no lesions or wounds seen Psych: Dysthymic, flat affect Objective Data Vital Signs Vital Signs: Vital Signs - 24 hr 06/02/22 14:00 06/02/22 22:00 06/03/22 06:00 Temperature 97.9 F 98.1 F 98.9 F Pulse Rate 98 54 L 102 H Respiratory Rate 16 20 18 Blood Pressure 114/57 L 105/46 L 115/58 L Pulse Oximetry 91 96 96 Oxygen Delivery 06/03/22 09:30 Temperature Pulse Rate Respiratory Rate Blood Pressure Pulse Oximetry Oxygen Delivery Room Air I
[2022-06-03 14:00] VITALS: BP 107/49; PULSE 98; RESP 20; TEMP 36.9; O2SAT 94
[2022-06-03] MEDS: ERTAPENEM 1 GM/NS 50 ML 1 GM/50 ML BAG IVPB (17:17)
[2022-06-03] MEDS: MIRTAZAPINE 15 MG TABLET PO (21:01)
[2022-06-03 21:02] VITALS: TEMP 37.8
[2022-06-03] MEDS: MELATONIN 3 MG TABLET PO (21:02)
[2022-06-03 21:56] VITALS: BP 117/56; PULSE 96; RESP 16; TEMP 37.8; O2SAT 96
[2022-06-04] MEDS: VANCOMYCIN ORAL 125 MG/2.5 ML SYRUP PO ×4 (00:15→17:37)
[2022-06-04 06:00] VITALS: BP 133/79; PULSE 83; RESP 16; TEMP 36.3; O2SAT 100
[2022-06-04 07:22] LABS: Basophils Absolute Auto 0.1 K/mm3 (0.0-0.1); Basophils Percent Auto 0.5 % (0.2-1.2); Eosinophils Absolute Auto 0.2 K/mm3 (0-0.3); Eosinophils Percent Auto 1.4 % (0-4.4); Hematocrit 25.7 % (42.0-52.0); Hemoglobin 7.7 g/dL (14.0-18.0); Immature Granulocyte Absolute 0.24 K/mm3 (0.00-0.031); Immature Granulocyte Percent A 1.6 % (0-0.5); Lymphocytes Absolute Auto 0.48 K/mm3 (0.9-3.2); Lymphocytes Percent Auto 3.2 % (18.3-44.2); Mean Corpuscular Hemoglobin 30.2 pg (26-34); Mean Corpuscular Volume 100.8 fl (80-100); Mean Platelet Volume 8.9 fl (7.4-10.4); Monocytes Absolute Auto 0.8 K/mm3 (0.1-0.6); Monocytes Percent Auto 5.2 % (2.6-8.5); Neutrophils Absolute Auto 13.2 K/mm3 (1.3-6.7); Neutrophils Percent Auto 88.1 % (45.5-73.1); Platelet Count Result 499 k/mm3 (150-375); Red Blood Count 2.55 M/mm3 (4.6-6.20); Red Cell Distribution Width 18.4 % (11.5-14.5); White Blood Count 14.9 K/mm3 (4.5-10.0)
[2022-06-04 07:36] LABS: Alanine Aminotransferase 17 U/L (6-50); Albumin Level 1.7 g/dL (3.5-5.1); Alkaline Phosphatase 59 U/L (38-126); Anion Gap -1 mmol/L (8-16); Aspartate Amino Transferase 17 U/L (17-59); Bilirubin,Total 0.3 mg/dL (0.2-1.3); Blood Urea Nitrogen 12 mg/dL (9-20); Calcium 7.4 mg/dL (8.4-10.2); Carbon Dioxide 28 mmol/L (22-30); Chloride 107 mmol/L (98-107); Estimated CRCL calculation 66 ml/min; Estimated Glomerular Filt Rate > 60; Glucose 102 mg/dL (65-110); Potassium 3.5 mmol/L (3.4-5.0); Sodium 134 mmol/L (137-145)
[2022-06-04] MEDS: ATORVASTATIN 40 MG TABLET 80 MG PO (08:44)
[2022-06-04] MEDS: GABAPENTIN 300 MG CAPSULE PO ×3 (08:44→17:37)
[2022-06-04] MEDS: CYANOCOBALAMIN 1,000 MCG TABLET 1000 MCG PO (08:44)
[2022-06-04] MEDS: APIXABAN 5 MG TABLET PO ×2 (08:44→20:51)
[2022-06-04] MEDS: TAMSULOSIN HCL 0.4 MG CAPSULE PO ×2 (08:44→17:37)
[2022-06-04] MEDS: IRON SUCROSE COMPLEX 500 MG in SODIUM CHLORIDE 0.9% IV 250 ML 78.57 MG IVPB (08:49)
[2022-06-04] MEDS: SILVERGEL (ELTA) 45 ML 1 APPLIC TOPICAL (08:50)
[2022-06-04] MEDS: TOLNAFTATE 1% POWDER 45 GM BTL 1 APPLIC TOPICAL ×2 (08:50→20:54)
[2022-06-04 14:00] VITALS: BP 112/53; PULSE 95; RESP 16; TEMP 36.5; O2SAT 99
[2022-06-04] MEDS: oxyCODONE/ACETAMINOPHEN (*CRX) 5-325 MG TABLET 1 TABLET PO (15:12)
--- NOTE | 2022-06-04 17:16 | PM.IMPN ---
Progress Note: A&P Assessment and Plan (1) History of infection due to ESBL Klebsiella oxytoca: Code(s): Z86.19 - Personal history of other infectious and parasitic diseases Status: Acute (2) AMS (altered mental status): Code(s): R41.82 - Altered mental status, unspecified Status: Acute (3) Leukocytosis: Code(s): D72.829 - Elevated white blood cell count, unspecified Status: Acute (4) Debility: Code(s): R53.81 - Other malaise Status: Acute (5) Dysphagia: Code(s): R13.10 - Dysphagia, unspecified Status: Acute Plan 76-year-old male with past medical history of left sgthp-rwt-spir amputation, essential hypertension, dyslipidemia, CHF and paroxysmal AFib atrial fibrillation as well as BPH who presented to the ER from [facility] rehab with weakness, fever and altered mental status.? The patient was recently hospitalized in mid April due to Klebsiella pneumonia ESBL bacteremia due to UTI.? Sepsis from UTI: Resolving Cont ertapenem, would treat for an extended period at this point, perhaps there is prostatitis? would favor 21 day course, potential end date 06/20/22? would need retirement IV access placed once repeat bld cx neg Repeat blood cultures NGTD, cont to monitor Blood positive for ESBL, Urine cx +GNB, ESBL, sens imipenem Renal ultrasound within normal limits Appreciate urology consultation, unsure of duration of abx? 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 CRP + PCT trending down significantly, leuk still elevated, down to 14 from 17 yesterday, no bandemia today noted, diarrhea improving Dysphagia: Underwent MBS, cleared for regular diet H/o Afib: C/w eliquis Hyponatremia: Sodium improved to 134, stable Severe malnutrition: Albumin 1.9, continue dietary supplements cont remeron to potentially stimulate appetite and address dysthymia/flattened affect, ?depression Anemia of unknown etiology: stool occult positive, hold off on consulting GI, likely 2/2 cdif, consult GI if hgb cont to drop Hemoglobin 7-8, stable, monitor iron studies quite low give venofer 500 mg q24h x 3 dosesm last dose 06/04 b12 wnl Previous admission also showed anemia, in April 2022, GI was consulted, EGD and colonoscopy performed, 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 No chest pain or shortness of breath. No nausea, vomiting. No fevers or chills. Diarrhea improving. Stable. No complaints. Review of Systems Review of Systems: 12 point review of systems was assessed and was negative except as noted in the HPI Exam Narrative: General: No acute distress, alert and oriented per baseline, cachectic, chronically ill-appearing male HEENT: Atraumatic, normocephalic, mucous membranes moist CV: Regular rate and rhythm, S1, S2 Lungs: Clear to auscultation bilaterally, no rales or crackles noted, no wheezes, good air entry Abdomen: Soft, nontender, nondistended Extremities: Normal to inspection, left AKA Skin: No rashes noted, no lesions or wounds seen Psych: Dysthymic, flat affect Objective Data Vital Signs Vital Signs: Vital Signs - 24 hr 06/03/22 21:02 06/03/22 21:56 06/03/22 20:00 Temperature 100.1 F H 100.1 F H Pulse Rate 96 Respiratory Rate 16 Blood Pressure 117/56 L Pulse Oximetry 96 Oxygen Delivery Room Air 06/04/22 06:00 06/04/22 08:00 06/04/22 14:00 Temperature 97.3 F L 97.7 F Pulse Rate 83 95 Respiratory Rate 16 16 Blood Pressure 133/79 112/53 L Pulse Oximetry 100 99 Oxygen Delivery Room Air Intake/Output Intake/Output: Intake & Output 06/01/2206/02
[2022-06-04] MEDS: ERTAPENEM 1 GM/NS 50 ML 1 GM/50 ML BAG IVPB (17:37)
[2022-06-04] MEDS: MIRTAZAPINE 15 MG TABLET PO (20:51)
[2022-06-04] MEDS: MELATONIN 3 MG TABLET PO (20:53)
[2022-06-04 22:00] VITALS: BP 109/61; PULSE 90; RESP 16; TEMP 36.5; O2SAT 98
[2022-06-05] MEDS: VANCOMYCIN ORAL 125 MG/2.5 ML SYRUP PO ×4 (00:20→16:59)
[2022-06-05 06:00] VITALS: BP 113/58; PULSE 94; RESP 16; TEMP 36.2; O2SAT 97
[2022-06-05] MEDS: oxyCODONE/ACETAMINOPHEN (*CRX) 5-325 MG TABLET 1 TABLET PO (06:13)
[2022-06-05 07:45] LABS: Hematocrit 26.4 % (42.0-52.0); Hemoglobin 7.8 g/dL (14.0-18.0); Mean Corpuscular HGB Conc 29.5 g/dl (32-36); Mean Corpuscular Hemoglobin 30.1 pg (26-34); Mean Corpuscular Volume 101.9 fl (80-100); Mean Platelet Volume 9.3 fl (7.4-10.4); Platelet Count Result 459 k/mm3 (150-375); Red Blood Count 2.59 M/mm3 (4.6-6.20); White Blood Count 21.4 K/mm3 (4.5-10.0)
[2022-06-05 07:59] LABS: Alanine Aminotransferase 18 U/L (6-50); Albumin Level 1.9 g/dL (3.5-5.1); Alkaline Phosphatase 70 U/L (38-126); Anion Gap 2 mmol/L (8-16); Aspartate Amino Transferase 18 U/L (17-59); Bilirubin,Total 0.3 mg/dL (0.2-1.3); Blood Urea Nitrogen 13 mg/dL (9-20); Calcium 7.3 mg/dL (8.4-10.2); Carbon Dioxide 25 mmol/L (22-30); Chloride 108 mmol/L (98-107); Estimated CRCL calculation 78 ml/min; Estimated Glomerular Filt Rate > 60; Glucose 97 mg/dL (65-110); Potassium 3.4 mmol/L (3.4-5.0); Sodium 135 mmol/L (137-145)
[2022-06-05 08:10] LABS: Band Neutrophils Percent 14 % (0-6); Eosinophils Absolute Manual 0.64 K/mm3 (0.02-0.5); Eosinophils Percent Manual 3 % (0-4); Lymphocytes Absolute Manual 0.42 K/mm3 (1.1-4.5); Monocytes Absolute Manual 0.21 K/mm3 (0.1-0.90); Monocytes Percent Manual 1 % (3-9); Neutrophils Absolute Manual 20.11 K/mm3 (1.3-6.7); Neutrophils Percent Manual 80 % (46-73); Total Cells Counted 100
[2022-06-05 08:11] LABS: Anisocytosis 1+ (NORMAL); Ovalocytes 1+ (NORMAL); Platelet Estimate Increased (Adequate); Schistocytes None Seen (NORMAL)
[2022-06-05 08:12] LABS: Burr Cells 1+ (NORMAL)
[2022-06-05] MEDS: GABAPENTIN 300 MG CAPSULE PO ×3 (08:27→16:59)
[2022-06-05] MEDS: APIXABAN 5 MG TABLET PO ×2 (08:27→22:12)
[2022-06-05] MEDS: TAMSULOSIN HCL 0.4 MG CAPSULE PO ×2 (08:27→17:00)
[2022-06-05] MEDS: ATORVASTATIN 40 MG TABLET 80 MG PO (08:27)
[2022-06-05] MEDS: TOLNAFTATE 1% POWDER 45 GM BTL 1 APPLIC TOPICAL ×2 (08:27→22:18)
[2022-06-05] MEDS: CYANOCOBALAMIN 1,000 MCG TABLET 1000 MCG PO (08:27)
[2022-06-05] MEDS: SILVERGEL (ELTA) 45 ML 1 APPLIC TOPICAL (08:27)
--- NOTE | 2022-06-05 11:14 | PM.IMPN ---
Progress Note: A&P Assessment and Plan (1) ESBL (extended spectrum beta-lactamase) producing bacteria infection: Code(s): A49.9 - Bacterial infection, unspecified; Z16.12 - Extended spectrum beta lactamase (ESBL) resistance Status: Acute Assessment and Plan: Cont ertapenem, would treat for an extended period at this point, perhaps there is prostatitis? would favor 21 day course, potential end date 06/20/22? would need skilled nursing IV access placed once repeat bld cx neg Repeat blood cultures NGTD, cont to monitor Blood positive for ESBL, Urine cx +GNB, ESBL, sens imipenem Renal ultrasound within normal limits Appreciate urology consultation, unsure of duration of abx? 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 06/04: CRP + PCT trending down significantly, leuk still elevated, down to 14 from 17 yesterday, no bandemia today noted, diarrhea improving 06/05: Leukocytosis trending up to 21.4 today from 14.9 yesterday, unsure of etiology, could be secondary to coccyx wound? Follow-up MRI of this area, osteo? (2) Severe malnutrition: Code(s): E43 - Unspecified severe protein-calorie malnutrition Status: Acute Assessment and Plan: Albumin 1.9, continue dietary supplements cont remeron to potentially stimulate appetite and address dysthymia/flattened affect, ?depression Multifactorial, likely secondary to significantly decreased p.o. intake, depression, multiple admissions and sepsis (3) C. difficile colitis: Code(s): A04.72 - Enterocolitis due to Clostridium difficile, not specified as recurrent Status: Acute Assessment and Plan: Started on oral vancomycin 05/31, end date 06/10 Diarrhea significantly improved (4) Gastric AVM: Code(s): K31.819 - Angiodysplasia of stomach and duodenum without bleeding Status: Acute Assessment and Plan: See below regarding anemia (5) Anemia: Code(s): D64.9 - Anemia, unspecified Status: Acute Assessment and Plan: stool occult positive, hold off on consulting GI, likely 2/2 cdif, consult GI if hgb cont to drop Hemoglobin 7-8, stable, monitor iron studies quite low, give venofer 500 mg q24h x 3 doses last dose 06/04, discharged on oral iron and outpatient follow-up b12 wnl Previous admission also showed anemia, in April 2022, GI was consulted, EGD and colonoscopy performed, he was found to have gastric AVM with bleeding status post cauterization (6) CHF (congestive heart failure): Code(s): I50.9 - Heart failure, unspecified Status: Acute Assessment and Plan: Appears euvolemic (7) History of left above knee amputation: Code(s): Z89.612 - Acquired absence of left leg above knee Status: Acute (8) Debility: Code(s): R53.81 - Other malaise Status: Acute Assessment and Plan: Continues to experience debility from multiple hospitalizations since January 2022, also concern for underlying depression per family and patient, recently started on Remeron to stimulate appetite and possibly assist depression Continue PT/OT, recommending discharge home with home health therapy (9) Urinary retention: Code(s): R33.9 - Retention of urine, unspecified Status: Acute Assessment and Plan: Appreciate urology consultation Renal ultrasound normal, cystoscopy 02/13 was normal Urodynamic study in 12/14 showed obstruction of the prostate, however the Urolift was unsuccessful. Urology is recommending a repeat urodynamics test to rule out an atonic bladder d/t multiple failed voiding trials. Continue monthly shannon changes until Urodynamics is scheduled. Plan Dysphagia: Underwent MBS, cleared for regular diet H/o Afib: C/w eliquis Hyponatremia: Sodium improved to 135, stable Code status:DNR Dispo:pending improvement Subje
[2022-06-05 11:52] LABS: CRP 12.5 mg/dL (<1.0)
[2022-06-05 11:53] LABS: Procalcitonin 0.6 ng/mL
--- NOTE | 2022-06-05 13:46 | PCNFU ---
Nutrition Follow-Up Complete: Moderate malnutrition related to increased protein needs in the setting of chronic disease or condition as evidenced by less than 75% of estimated needs for greater than 1 month, greater than 5% weight loss in 1 month, noted muscle wasting and fat loss per NFPE Goal:PO intake greater than 50% or meals Pt current nutrition is Regular diet, STEPHANIE BID, nutrition ice cream BID. Nutrition recommendation: Add Banatrol BID Last recorded weight is 60.7 kg - stable Bowel Motility: +BM 06/05 Labs Reviewed: Hgb:7.8, HCT:24.4, Alb:1.9, NA:135, Cr:0.6 Meds Noted: eliquis, lipitor Skin: unstageable to sacrum Additional Notes: Pt continues on a regular diet, intake varied from 10-75% of meals. Nutrition ice cream and STEPHANIE in place. Recommend to add banatrol d/t c.diff+ and frequent stools. Continue to encourage po intake. Noted started on remeron. Monitor intake, wt, labs. Follow up in 5 days.
[2022-06-05 14:00] VITALS: BP 117/64; PULSE 92; RESP 12; TEMP 36.4; O2SAT 96
[2022-06-05] MEDS: MORPHINE SULFATE (*CRX) 2 MG/ML INJ IV PUSH ×2 (14:54→22:12)
[2022-06-05] MEDS: ERTAPENEM 1 GM/NS 50 ML 1 GM/50 ML BAG IVPB (16:59)
[2022-06-05 20:34] LABS: Hematocrit 25.4 % (42.0-52.0); Hemoglobin 7.6 g/dL (14.0-18.0); Mean Corpuscular HGB Conc 29.9 g/dl (32-36); Mean Corpuscular Hemoglobin 30.5 pg (26-34); Mean Platelet Volume 8.9 fl (7.4-10.4); Platelet Count Result 519 k/mm3 (150-375); Red Blood Count 2.49 M/mm3 (4.6-6.20); Red Cell Distribution Width 18.9 % (11.5-14.5); White Blood Count 17.7 K/mm3 (4.5-10.0)
[2022-06-05 21:18] VITALS: BP 110/61; PULSE 99; RESP 18; TEMP 36.3; O2SAT 95
[2022-06-05 21:38] LABS: Band Neutrophils Percent 12 % (0-6); Eosinophils Absolute Manual 0.35 K/mm3 (0.02-0.5); Eosinophils Percent Manual 2 % (0-4); Monocytes Absolute Manual 0.17 K/mm3 (0.1-0.90); Monocytes Percent Manual 1 % (3-9); Neutrophils Absolute Manual 17.16 K/mm3 (1.3-6.7); Neutrophils Percent Manual 85 % (46-73); Total Cells Counted 100
[2022-06-05 21:40] LABS: Anisocytosis 1+ (NORMAL); Macrocytosis 1+ (NORMAL); Platelet Estimate Increased (Adequate)
[2022-06-05 21:41] LABS: Poikilocytosis 1+ (NORMAL); Schistocytes Rare (NORMAL)
[2022-06-05] MEDS: GABAPENTIN 400 MG CAPSULE PO (22:11)
[2022-06-05] MEDS: MIRTAZAPINE 15 MG TABLET PO (22:11)
[2022-06-05] MEDS: MELATONIN 3 MG TABLET PO (22:12)
[2022-06-06] MEDS: VANCOMYCIN ORAL 125 MG/2.5 ML SYRUP PO ×4 (00:48→16:58)
[2022-06-06 06:00] VITALS: BP 112/63; PULSE 94; RESP 18; TEMP 36.3; O2SAT 99
[2022-06-06 06:42] LABS: Basophils Percent Auto 0.2 % (0.2-1.2); Eosinophils Absolute Auto 0.2 K/mm3 (0-0.3); Eosinophils Percent Auto 1.4 % (0-4.4); Hematocrit 24.4 % (42.0-52.0); Hemoglobin 7.3 g/dL (14.0-18.0); Immature Granulocyte Absolute 0.23 K/mm3 (0.00-0.031); Immature Granulocyte Percent A 1.4 % (0-0.5); Mean Corpuscular HGB Conc 29.9 g/dl (32-36); Mean Corpuscular Hemoglobin 29.8 pg (26-34); Mean Corpuscular Volume 99.6 fl (80-100); Mean Platelet Volume 8.8 fl (7.4-10.4); Monocytes Absolute Auto 0.8 K/mm3 (0.1-0.6); Monocytes Percent Auto 5.1 % (2.6-8.5); Neutrophils Absolute Auto 13.9 K/mm3 (1.3-6.7); Neutrophils Percent Auto 86.9 % (45.5-73.1); Platelet Count Result 492 k/mm3 (150-375); Red Blood Count 2.45 M/mm3 (4.6-6.20); Red Cell Distribution Width 19.4 % (11.5-14.5)
[2022-06-06 07:07] LABS: Alanine Aminotransferase 17 U/L (6-50); Albumin Level 1.9 g/dL (3.5-5.1); Alkaline Phosphatase 71 U/L (38-126); Anion Gap -1 mmol/L (8-16); Aspartate Amino Transferase 21 U/L (17-59); Bilirubin,Total 0.3 mg/dL (0.2-1.3); Blood Urea Nitrogen 13 mg/dL (9-20); Calcium 7.6 mg/dL (8.4-10.2); Carbon Dioxide 28 mmol/L (22-30); Chloride 105 mmol/L (98-107); Estimated CRCL calculation 78 ml/min; Estimated Glomerular Filt Rate > 60; Glucose 93 mg/dL (65-110); Potassium 3.6 mmol/L (3.4-5.0); Sodium 132 mmol/L (137-145)
[2022-06-06 07:19] LABS: Anisocytosis 2+ (NORMAL); Hypochromasia 1+ (NORMAL); Platelet Estimate Increased (Adequate); Schistocytes None Seen (NORMAL)
[2022-06-06] MEDS: GABAPENTIN 300 MG CAPSULE PO ×2 (08:44→16:57)
[2022-06-06] MEDS: APIXABAN 5 MG TABLET PO ×2 (08:44→21:25)
[2022-06-06] MEDS: ATORVASTATIN 40 MG TABLET 80 MG PO (08:44)
[2022-06-06] MEDS: CYANOCOBALAMIN 1,000 MCG TABLET 1000 MCG PO (08:45)
[2022-06-06] MEDS: SILVERGEL (ELTA) 45 ML 1 APPLIC TOPICAL (08:45)
[2022-06-06] MEDS: TAMSULOSIN HCL 0.4 MG CAPSULE PO ×2 (08:45→16:58)
[2022-06-06] MEDS: TOLNAFTATE 1% POWDER 45 GM BTL 1 APPLIC TOPICAL ×2 (08:45→21:25)
[2022-06-06 14:00] VITALS: BP 116/63; PULSE 91; RESP 16; TEMP 36.7; O2SAT 98
--- NOTE | 2022-06-06 16:29 | PM.IMPN ---
Progress Note: A&P Assessment and Plan (1) ESBL (extended spectrum beta-lactamase) producing bacteria infection: Code(s): A49.9 - Bacterial infection, unspecified; Z16.12 - Extended spectrum beta lactamase (ESBL) resistance Status: Acute Assessment and Plan: Urine and Blood cultures positive for ESBL Klebsiella. Repeat blood cultures negative. Renal ultrasound within normal limits. Appreciate urology consultation. Cont ertapenem for an extended period and would favor 21 day course with potential end date 06/20/22. No sacral osteomyelitis noted. Monitor WBC. (2) C. difficile colitis: Code(s): A04.72 - Enterocolitis due to Clostridium difficile, not specified as recurrent Status: Acute Assessment and Plan: CDiff positive of 05/31 and started on oral vancomycin. Diarrhea has resolved. End date 06/10 (3) Severe malnutrition: Code(s): E43 - Unspecified severe protein-calorie malnutrition Status: Acute Assessment and Plan: Albumin 1.9, continue dietary supplements cont remeron to potentially stimulate appetite and address dysthymia/flattened affect, ?depression Multifactorial, likely secondary to significantly decreased p.o. intake, depression, multiple admissions and sepsis (4) Anemia: Code(s): D64.9 - Anemia, unspecified Status: Acute Assessment and Plan: Previous admission also showed anemia, in April 2022, GI was consulted, EGD and colonoscopy performed, he was found to have gastric AVM with bleeding status post cauterization. discharged on oral iron and outpatient follow-up Stool occult positive again, hold off on consulting GI, likely 2/2 cdif, consult GI if hgb cont to drop iron studies quite low, give venofer 500 mg q24h x 3 doses last dose 06/04, B12 wnl Hemoglobin 7-8, stable, monitor (5) Gastric AVM: Code(s): K31.819 - Angiodysplasia of stomach and duodenum without bleeding Status: Acute Assessment and Plan: As above. Add pepcid (6) CHF (congestive heart failure): Code(s): I50.9 - Heart failure, unspecified Status: Acute Assessment and Plan: Appears euvolemic. (7) Debility: Code(s): R53.81 - Other malaise Status: Acute Assessment and Plan: Continues to experience debility from multiple hospitalizations since January 2022, also concern for underlying depression per family and patient, recently started on Remeron to stimulate appetite and possibly assist depression Continue PT/OT, recommending discharge home with home health therapy (8) History of left above knee amputation: Code(s): Z89.612 - Acquired absence of left leg above knee Status: Acute Assessment and Plan: Contine PT/OT. As above (9) Urinary retention: Code(s): R33.9 - Retention of urine, unspecified Status: Acute Assessment and Plan: Appreciate urology consultation Renal ultrasound normal, cystoscopy 02/13 was normal Urodynamic study in 12/14 showed obstruction of the prostate, however the Urolift was unsuccessful. Urology is recommending a repeat urodynamics test to rule out an atonic bladder d/t multiple failed voiding trials. Continue monthly shannon changes until Urodynamics is scheduled. Plan Dysphagia: Underwent MBS, cleared for regular diet H/o Afib: C/w eliquis Hyponatremia: Sodium low 130 range and stable Code status:DNR Dispo:pending improvement Subjective Date/time seen: 06/06/22 16:29 Interval history: 76yo male with left BKA, HTN, CHF and AFib presenting from [facility] with weakness, fever and altered mental status and found to have sepsis with recurrent ESBL bacteremia as well as C diff colitis. Assuming care. Chart reviewed. No chest pain. No abdominal pain. Complains of bilateral, left greater than right lower extremity pain. 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 He is eating okay but not much overall. No further diarrh
[2022-06-06] MEDS: ERTAPENEM 1 GM/NS 50 ML 1 GM/50 ML BAG IVPB (16:57)
[2022-06-06] MEDS: oxyCODONE/ACETAMINOPHEN (*CRX) 5-325 MG TABLET 1 TABLET PO (17:30)
[2022-06-06 19:49] VITALS: BP 93/60; PULSE 88; RESP 16; TEMP 36.9; O2SAT 99
[2022-06-06 20:00] VITALS: PULSE 88; RESP 16; O2SAT 99
[2022-06-06] MEDS: GABAPENTIN 400 MG CAPSULE PO (21:25)
[2022-06-06] MEDS: MIRTAZAPINE 15 MG TABLET PO (21:25)
[2022-06-06] MEDS: MELATONIN 3 MG TABLET PO (21:25)
[2022-06-06] MEDS: FAMOTIDINE 20 MG TABLET PO (21:25)
[2022-06-06] MEDS: ACETAMINOPHEN 325 MG TABLET 650 MG PO (22:25)
[2022-06-07] MEDS: VANCOMYCIN ORAL 125 MG/2.5 ML SYRUP PO ×3 (00:09→11:46)
[2022-06-07] MEDS: oxyCODONE/ACETAMINOPHEN (*CRX) 5-325 MG TABLET 1 TABLET PO (01:46)
[2022-06-07 06:00] VITALS: BP 113/57; PULSE 78; RESP 16; TEMP 36.2; O2SAT 96
[2022-06-07 07:12] LABS: Basophils Percent Auto 0.2 % (0.2-1.2); Eosinophils Absolute Auto 0.2 K/mm3 (0-0.3); Eosinophils Percent Auto 1.7 % (0-4.4); Hematocrit 25.2 % (42.0-52.0); Hemoglobin 7.4 g/dL (14.0-18.0); Immature Granulocyte Percent A 1.5 % (0-0.5); Lymphocytes Absolute Auto 0.83 K/mm3 (0.9-3.2); Lymphocytes Percent Auto 6.1 % (18.3-44.2); Mean Corpuscular HGB Conc 29.4 g/dl (32-36); Mean Corpuscular Hemoglobin 30.7 pg (26-34); Mean Corpuscular Volume 104.6 fl (80-100); Mean Platelet Volume 8.8 fl (7.4-10.4); Monocytes Absolute Auto 0.7 K/mm3 (0.1-0.6); Monocytes Percent Auto 5.1 % (2.6-8.5); Neutrophils Absolute Auto 11.6 K/mm3 (1.3-6.7); Neutrophils Percent Auto 85.4 % (45.5-73.1); Platelet Count Result 462 k/mm3 (150-375); Red Blood Count 2.41 M/mm3 (4.6-6.20); Red Cell Distribution Width 19.8 % (11.5-14.5); White Blood Count 13.6 K/mm3 (4.5-10.0)
[2022-06-07 07:23] LABS: Alanine Aminotransferase 18 U/L (6-50); Albumin Level 1.9 g/dL (3.5-5.1); Alkaline Phosphatase 68 U/L (38-126); Anion Gap -3 mmol/L (8-16); Aspartate Amino Transferase 25 U/L (17-59); Bilirubin,Total 0.3 mg/dL (0.2-1.3); Blood Urea Nitrogen 13 mg/dL (9-20); Calcium 7.5 mg/dL (8.4-10.2); Carbon Dioxide 30 mmol/L (22-30); Chloride 105 mmol/L (98-107); Estimated CRCL calculation 78 ml/min; Estimated Glomerular Filt Rate > 60; Glucose 90 mg/dL (65-110); Potassium 3.6 mmol/L (3.4-5.0); Sodium 132 mmol/L (137-145)
[2022-06-07] MEDS: LIDOCAINE HCL 1% LOCAL INJ 2 ML AMPUL 5 ML INFILTRATE (07:30)
[2022-06-07 07:51] LABS: Crenated RBC 1+ (NORMAL); Hypochromasia 2+ (NORMAL)
[2022-06-07 07:52] LABS: Anisocytosis 2+ (NORMAL); Schistocytes Rare (NORMAL)
[2022-06-07] MEDS: GABAPENTIN 300 MG CAPSULE PO (09:03)
[2022-06-07] MEDS: ATORVASTATIN 40 MG TABLET 80 MG PO (09:03)
[2022-06-07] MEDS: CYANOCOBALAMIN 1,000 MCG TABLET 1000 MCG PO (09:03)
[2022-06-07] MEDS: APIXABAN 5 MG TABLET PO (09:03)
[2022-06-07] MEDS: FAMOTIDINE 20 MG TABLET PO (09:03)
[2022-06-07] MEDS: TAMSULOSIN HCL 0.4 MG CAPSULE PO (09:03)
--- NOTE | 2022-06-07 11:11 | PM.DS ---
DS: Admitting Diagnosis Discharge Date 06/07/22 Admitting Diagnosis lethargic DS: Discharge Diagnosis Discharge Diagnosis (1) ESBL (extended spectrum beta-lactamase) producing bacteria infection: Code(s): A49.9 - Bacterial infection, unspecified; Z16.12 - Extended spectrum beta lactamase (ESBL) resistance Status: Acute (2) C. difficile colitis: Code(s): A04.72 - Enterocolitis due to Clostridium difficile, not specified as recurrent Status: Acute (3) Severe malnutrition: Code(s): E43 - Unspecified severe protein-calorie malnutrition Status: Acute (4) Anemia: Code(s): D64.9 - Anemia, unspecified Status: Acute (5) Gastric AVM: Code(s): K31.819 - Angiodysplasia of stomach and duodenum without bleeding Status: Acute (6) CHF (congestive heart failure): Code(s): I50.9 - Heart failure, unspecified Status: Acute (7) Debility: Code(s): R53.81 - Other malaise Status: Acute (8) History of left above knee amputation: Code(s): Z89.612 - Acquired absence of left leg above knee Status: Acute (9) Urinary retention: Code(s): R33.9 - Retention of urine, unspecified Status: Acute DS: Summary Hospital Course Reason for hospitalization: 76yo male with left BKA, HTN, CHF and AFib presenting from [facility] with weakness, fever and altered mental status. Please see H&P for details. Hospital Course: Urine and Blood cultures positive for ESBL Klebsiella. He was started on IV abx. Repeat blood cultures negative. Renal ultrasound within normal limits. Urology consulted. His abx narrowed to ertapenem with plans for extended period of treatment to cover for prostatitis. Plan for 21 day course with end date 06/20/22. No sacral osteomyelitis noted by MRI. WBC was as high as 21K but trending down since. Midline placed. He was having diarrhea and also found to have C. difficile colitis. CDiff PCR positive of 05/31 and started on oral vancomycin. Diarrhea has resolved. End date 06/10. Patient also with severe malnutrition with Albumin 1.9 treated with dietary supplements. Previous admission he was noted to have anemia in April 2022. GI was consulted then and EGD and colonoscopy performed. He was found to have gastric AVM with bleeding status post cauterization. He was discharged on oral iron and outpatient follow-up. Stool occult positive again but felt related to the CDiff. He was given venofer x 3 doses. Hemoglobin remained stable in the 7-8 range. Continues to experience debility from multiple hospitalizations since January 2022. Also concern for underlying depression per family and patient so he was started on Remeron to stimulate appetite and possibly assist depression. He worked with PT/OT and has been standby assist. Plan for discharge home with home health therapy. He was seen by speech and repeat MBS showed patient did well and diet was adjusted. Urodynamic study in 12/14 showed obstruction of the prostate, however the Urolift was unsuccessful. Urology is recommending a repeat urodynamics test to rule out an atonic bladder d/t multiple failed voiding trials. Will continue monthly shannon changes until Urodynamics is scheduled. He overall did well and was able to be discharged home on 06/07/22. Status at Discharge Cognitive/behavioral status at discharge: Stable Time Spent with Patient Time attestation: Total time spent providing and/or coordinating discharge services: 36 minutes Time spent: Greater than 30 minutes Exam Narrative: AF 97.2 113/57 78 16 96% ra Gen - NARD Chest -Lungs clear anteriorly. CV - RRR S1/S2 Abd - Soft, NT/ND, Positive BS Ext - No right LE pedal edema. Left lower extremity stump has healed well. Neuro - Alert and appropriate Psych - Nml mood and affect Skin - Warm and dry DS: Data Data Completed and Pending Labs on day of discharge: Labs from last 24 hours 06/07/22 06/07/22 06
[2022-06-07] MEDS: TOLNAFTATE 1% POWDER 45 GM BTL 1 APPLIC TOPICAL (11:46)
[2022-06-07] MEDS: SILVERGEL (ELTA) 45 ML 1 APPLIC TOPICAL (11:46)
[2022-06-07 14:00] VITALS: BP 110/60; PULSE 74; RESP 16; TEMP 36.5; O2SAT 96
[2022-06-07] MEDS: ERTAPENEM 1 GM/NS 50 ML 1 GM/50 ML BAG IVPB (14:12)
[2022-06-07] MEDS: SALINE LOCK FLUSH 10 ML IV PUSH (14:14)
--- NOTE | 2022-06-07 16:14 | PC.NURSE ---
Notified Diana with Care coordination that the patient's has questions regarding the home infusion company before she takes the patient home. Diana stated that she would call the patient's .
== END 2022-06-07 16:10 | disposition home health service (06) | DRG 871 ==
LOC: ANHED 19:21 → ANHIMU 20:14 → ANH3MEDSUR 05-30 17:43
PROVIDERS: Internal Medicine; Student in an Organized Health Care Education/Training Program; Admitting Provider Internal Medicine; Emergency Provider Emergency Medicine; PCP Family Medicine; Visit Provider Internal Medicine
DX: A41.9 Sepsis, unspecified organism (principal); E43 Unspecified severe protein-calorie malnutrition; A04.72 Enterocolitis due to Clostridium difficile, not specified as recurrent; N39.0 Urinary tract infection, site not specified; T17.898A Other foreign object in other parts of respiratory tract causing other injury, initial encounter; Z68.1 Body mass index [BMI] 19.9 or less, adult; Z16.12 Extended spectrum beta lactamase (ESBL) resistance; D64.9 Anemia, unspecified; K31.819 Angiodysplasia of stomach and duodenum without bleeding; I50.9 Heart failure, unspecified; Z89.612 Acquired absence of left leg above knee; R33.9 Retention of urine, unspecified; R13.10 Dysphagia, unspecified; Z66 Do not resuscitate
CPT/HCPCS: 36415; 36569; 36600; 71045; 72195; 76775; 80048; 80053; 81001; 82375; 82607; 82728; 82746; 82805; 83050; 83540; 83550; 83605; 83735; 84145; 85025; 85610; 85730; 86140; 87040; 87077; 87086; 87088; 87186; 87493; 92610; 92611; 93005; 96361; 96365; 96366; 96375; 96376; 97110; 97161; 97165; 97530; 97535; 99285; A9270; C1751; G0378; J0743; J1335; J1756; J2270; J7030; J7050

== ENCOUNTER 2022-06-20 09:00 | Emergency (ER) | payer MEDICARE, OTHER, SELFPAY ==
[2022-06-20] VITALS (10 sets, daily range): BP systolic 103–137; BP diastolic 37–70; PULSE 77–90; RESP 11–20; TEMP 37.1; O2SAT 98–100
--- NOTE | ~2022-06-20 | US_ITS ---
EXAMINATION: US venous doppler UE DATE: 06/20/2022 12:27 INDICATION: Upper limb swelling. TECHNIQUE: Grayscale ultrasound images without and with compression and Doppler ultrasound images of the bilateral upper extremity veins were obtained. COMPARISON: None. FINDINGS: The visualized portions of the right internal jugular vein, subclavian vein, axillary vein, brachial veins, basilic vein, radial vein, and ulnar vein are patent. The visualized portions of the left internal jugular vein, subclavian vein, axillary vein, brachial v eins, basilic vein, radial vein, and ulnar vein are patent. There is thrombus in left cephalic vein. IMPRESSION: 1. No deep venous thrombosis. 2. Thrombus in left cephalic vein, which is a superficial vein. Reviewed, dictated and finalized at location A.
--- NOTE | ~2022-06-20 | CT_ITS ---
EXAMINATION: CT lumbar spine wo con DATE: 06/20/2022 12:38 INDICATION: Sacral decubitus ulcer. TECHNIQUE: Computed tomography (CT) of the lumbar spine was performed without intravenous contrast. A utomated exposure control and iterative reconstruction technique were employed. The dose-length produ ct was 1405 mGy-cm. COMPARISON: CT 04/19/2022, MRI 06/05/2022 FINDINGS: The lungs demonstrate trace pleural effusions and dependent atelectasis. There is calcified atherosclerosis of the aorta and many of the other arteries. There are stents in the external iliac arteries. There is an ulcer with fat stranding superficial to the sacrum and coccyx, consistent with cellulitis. There is 17 degrees levoscoliosis of lumbar spine. Vertebral body heights are normal. The re is mildly decreased disc height at L1-L2, severely decreased disc height at L2-L3, mildly decrease d disc height at L3-L4 and L4-L5. The following disc levels are specifically discussed: L1-L2: The disc is bulging. There is mild bilateral facet joint osteoarthritis. There is mild bilater al neural foraminal stenosis. There is mild central canal stenosis. L2-L3: The disc is bulging. There is mild bilateral facet joint osteoarthritis. There is mild bilater al neural foraminal stenosis. There is mild central canal stenosis. L3-L4: The disc is bulging. There is mild bilateral facet joint osteoarthritis. There is mild bilater al neural foraminal stenosis. There is mild central canal stenosis. L4-L5: The disc is bulging. There is severe bilateral facet joint osteoarthritis. There is moderate r ight and mild left neural foraminal stenosis. There is mild central canal stenosis. L5-S1: The disc does not extend beyond the endplate margin. There is severe bilateral facet joint ost eoarthritis. There is no neural foraminal stenosis. There is no central canal stenosis. IMPRESSION: 1. Ulcer and cellulitis superficial to the distal sacrum. No specific evidence of osteomyelitis. 2. Severe lumbar spondylosis. 3. Lumbar levoscoliosis. Reviewed, dictated and finalized at location A.
--- NOTE | ~2022-06-20 | XR_ITS ---
Portable chest x-ray Comparison: 05/28/2022 Clinical History: Line placement Findings: Suspected very distal tip of presumed right-sided PICC line present in the right axilla. T here is stable haziness of the right upper lobe region. Minimal haziness at the right lung base. Car diomediastinal silhouette is stable. Bones and soft tissues are unremarkable. Impression: Suspected distal tip of presumed right-sided PICC line present in the right axilla. Correlate clinica lly with line placement. Advancement into the SVC should be considered. Probable minimal haziness in the right upper and lower lobes, nonspecific. Reviewed, dictated and finalized at location . Impression: Suspected distal tip of presumed right-sided PICC line present in the right axi lla. Correlate clinically with line placement. Advancement into the SVC should be considered. Probable minimal haziness in the right upper and lower lobes, nonspecific.
[2022-06-20 10:10] LABS: Basophils Percent Auto 0.4 % (0.2-1.2); Eosinophils Absolute Auto 0.1 K/mm3 (0-0.3); Eosinophils Percent Auto 1.3 % (0-4.4); Hematocrit 27.5 % (42.0-52.0); Hemoglobin 8.1 g/dL (14.0-18.0); Immature Granulocyte Absolute 0.04 K/mm3 (0.00-0.031); Immature Granulocyte Percent A 0.4 % (0-0.5); Lymphocytes Absolute Auto 0.47 K/mm3 (0.9-3.2); Lymphocytes Percent Auto 5.1 % (18.3-44.2); Mean Corpuscular HGB Conc 29.5 g/dl (32-36); Mean Corpuscular Hemoglobin 32.5 pg (26-34); Mean Corpuscular Volume 110.4 fl (80-100); Mean Platelet Volume 8.9 fl (7.4-10.4); Monocytes Absolute Auto 0.5 K/mm3 (0.1-0.6); Monocytes Percent Auto 5.5 % (2.6-8.5); Neutrophils Absolute Auto 8.1 K/mm3 (1.3-6.7); Neutrophils Percent Auto 87.3 % (45.5-73.1); Platelet Count Result 251 k/mm3 (150-375); Red Blood Count 2.49 M/mm3 (4.6-6.20); Red Cell Distribution Width 23.1 % (11.5-14.5); White Blood Count 9.2 K/mm3 (4.5-10.0)
[2022-06-20 10:21] LABS: Alanine Aminotransferase 35 U/L (6-50); Albumin Level 2.3 g/dL (3.5-5.1); Alkaline Phosphatase 74 U/L (38-126); Anion Gap 0 mmol/L (8-16); Aspartate Amino Transferase 36 U/L (17-59); Bilirubin,Total 0.3 mg/dL (0.2-1.3); Blood Urea Nitrogen 9 mg/dL (9-20); CRP 1.8 mg/dL (<1.0); Calcium 7.4 mg/dL (8.4-10.2); Carbon Dioxide 31 mmol/L (22-30); Chloride 105 mmol/L (98-107); Estimated CRCL calculation 81 ml/min; Estimated Glomerular Filt Rate > 60; Glucose 124 mg/dL (65-110); Potassium 2.9 mmol/L (3.4-5.0); Sodium 136 mmol/L (137-145)
[2022-06-20 10:33] LABS: Appearance Urine Clear (Clear); Bilirubin Urine Negative (Negative); Blood Urine Negative (Negative); Color Urine Yellow (Yellow); Glucose Urine UA Negative (Negative); Ketones Urine Negative (Negative); Leukocyte Esterase Ur Negative LEU/UL (Negative); Nitrate Urine Negative (Negative); Protein Urine Negative (Negative); Urobilinogen Urine 0.2 mg/dL (<2.0); pH Urine 7.5 (5.0-9.0)
--- NOTE | 2022-06-20 10:43 | PC.NURSE ---
Ultrasound in room with pt at this time.
[2022-06-20] MEDS: SODIUM CHLORIDE 0.9% IV 1,000 ML 999 ML IV CONT (10:56)
[2022-06-20 11:00] LABS: Anisocytosis 3+ (NORMAL); Hypochromasia 1+ (NORMAL); Macrocytosis 1+ (NORMAL); Platelet Estimate Adequate (Adequate); Schistocytes None Seen (NORMAL); Stomatocytes 1+ (NORMAL)
[2022-06-20 11:03] LABS: Add Urine Microscopic? NO
[2022-06-20 11:04] LABS: Phosphorus 2.5 mg/dL (2.5-4.5)
[2022-06-20] MEDS: SODIUM CHLORIDE 0.9% IV 500 ML 999 ML IV CONT (11:07)
[2022-06-20] MEDS: HYDROcodone/acetaminophen (*CRX) 10-325 MG TABLET 1 TAB PO (11:33)
[2022-06-20] MEDS: ONDANSETRON INJ 4 MG/2 ML VIAL IV PUSH (11:33)
[2022-06-20] MEDS: POTASSIUM CHLORIDE 20 MEQ PACKET (FOR LIQUID) 80 MEQ PO (11:56)
--- NOTE | 2022-06-20 12:08 | ED.EXTPRO ---
HPI - Extremity Problem General Chief complaint: Extremity Problem,Nontraumatic <Tylor Jacobs PA-C - Last Filed: 06/20/22 17:47> Stated complaint: extremity swelling <Tylor Jacobs PA-C - Last Filed: 06/20/22 17:47> Time Seen by Provider: 06/20/22 09:29 <Tylor Jacbos PA-C - Last Filed: 06/20/22 17:47> Source: patient <LEIDY Nichols Last Filed: 06/20/22 17:47> Mode of arrival: EMS <LEIDY Nichols Last Filed: 06/20/22 17:47> Limitations: no limitations <LEIDY Nichols Last Filed: 06/20/22 17:47> History of Present Illness HPI Narrative: This is a 76-year-old male with PMH of sepsis w/ ESBL, CAD, CVA, HFpEF, A-fib who presents the ED via EMS with chief complaint of bilateral upper extremity swelling. He has secondary complaints of a sacral ulcer. Patient was discharged from the hospital over a week ago after having sepsis, C. difficile. States he has been feeling improved ever since discharge, however now he is having the swelling. Denies pain in the upper extremities. Denies redness. Reports chronic skin changes in the upper extremities due to his blood thinners. He states that the sacral ulcer pain is worsening. Patient denies fevers, chills, LOC, headache, N/V, abdominal pain chest pain, shortness of breath, urinary symptoms. He also has history of PVD and left BKA. <Tylor Jacobs PA-C - Last Filed: 06/20/22 17:47> Related Data Home medications: Home Medications Medication Instructions Recorded Confirmed carvedilol 12.5 mg tablet 3.125 mg PO BID 01/19/22 06/20/22 cyclobenzaprine 10 mg tablet 10 mg PO Q6-8H PRN Muscle Spasm 05/03/22 06/20/22 docusate sodium 100 mg capsule 100 mg PO BID PRN Constipation 05/03/22 06/20/22 <LEIDY Nichols Last Filed: 06/20/22 17:47> Allergies/Adverse reactions: Allergies Allergy/AdvReac Type Severity Reaction Status Date / Time Aminoglycosides Allergy Severe RASH Verified 06/20/22 09:13 bacitracin Allergy Severe Rash Verified 06/20/22 09:13 neomycin Allergy Severe RASH Verified 06/20/22 09:13 polymyxin B Allergy Severe Rash Verified 06/20/22 09:13 <Tylor Jacobs PA-C - Last Filed: 06/20/22 17:47> Review of Systems Review of Systems: CONSTITUTIONAL: Denies fever, chills, or sweats. EYES: Denies visual changes, redness, or discharge. ENT: Denies rhinorrhea, congestion, sore throat, or otalgia. CARDIOVASCULAR: Denies chest pain, palpitations, or edema. RESPIRATORY: Denies cough or dyspnea. GASTROINTESTINAL: Denies abdominal pain, nausea, vomiting, or diarrhea. GENITOURINARY: Denies dysuria or hematuria. SKIN: Denies rash or itching. MUSCULOSKELETAL: Endorses upper extremity swelling. Denies back pain, joint pain, or myalgia. NEUROLOGIC: Denies headache, numbness, dizziness, or weakness. PSYCHIATRIC: Denies anxiety or depression. <Tylor Jacobs PA-C - Last Filed: 06/20/22 17:47> [facility] Past Medical History Medical History: Medical History Arthritis Basal cell carcinoma (BCC) on face removed in 2011 CAD (coronary artery disease) CHF (congestive heart failure) Cough CVA (cerebral vascular accident) Cyst of right kidney DDD (degenerative disc disease) Enlarged prostate Farsightedness Foot fracture, left History of left above knee amputation History of stroke with current residual effects HTN (hypertension) Hypercholesteremia Left ear hearing loss Myocardial infarction Renal disease <LEIDY Nichols Last Filed: 06/20/22 17:47> Surgical History Surgical History: Surgical History H/O plastic surgery On ankle for infected dog bite History of cardiac cath History of open heart surgery Hx of AKA (above knee amputation) left Hx of CABG <Tylor Jacobs PA-C - Last Filed: 06/20/22 17:47> Family History Family History: Family History (Reviewed
== END 2022-06-20 14:21 | disposition home or self-care (01) ==
PROVIDERS: Emergency Provider Physician Assistant; PCP Family Medicine
DX: I82.612 Acute embolism and thrombosis of superficial veins of left upper extremity (principal); I25.10 Atherosclerotic heart disease of native coronary artery without angina pectoris; I48.91 Unspecified atrial fibrillation; Z86.73 Personal history of transient ischemic attack (TIA), and cerebral infarction without residual deficits; I11.0 Hypertensive heart disease with heart failure; I50.9 Heart failure, unspecified; Z85.828 Personal history of other malignant neoplasm of skin; F17.210 Nicotine dependence, cigarettes, uncomplicated
CPT/HCPCS: 36415; 71045; 72131; 80053; 81003; 83735; 84100; 85025; 86140; 93970; 96361; 96374; 99284; A9270; J2405; J7030; J7040

== ENCOUNTER 2022-06-26 14:08 | Outpatient (CLI) | payer MEDICARE, OTHER, SELFPAY ==
[2022-06-26 15:24] LABS: Basophils Absolute Auto 0.1 K/mm3 (0.0-0.1); Basophils Percent Auto 0.5 % (0.2-1.2); Eosinophils Absolute Auto 0.2 K/mm3 (0-0.3); Eosinophils Percent Auto 1.7 % (0-4.4); Hematocrit 30.8 % (42.0-52.0); Hemoglobin 9.2 g/dL (14.0-18.0); Immature Granulocyte Absolute 0.04 K/mm3 (0.00-0.031); Immature Granulocyte Percent A 0.4 % (0-0.5); Lymphocytes Absolute Auto 0.61 K/mm3 (0.9-3.2); Lymphocytes Percent Auto 6.2 % (18.3-44.2); Mean Corpuscular HGB Conc 29.9 g/dl (32-36); Mean Corpuscular Hemoglobin 33.2 pg (26-34); Mean Corpuscular Volume 111.2 fl (80-100); Monocytes Absolute Auto 0.7 K/mm3 (0.1-0.6); Monocytes Percent Auto 7.4 % (2.6-8.5); Neutrophils Absolute Auto 8.3 K/mm3 (1.3-6.7); Neutrophils Percent Auto 83.8 % (45.5-73.1); Platelet Count Result 329 k/mm3 (150-375); Red Blood Count 2.77 M/mm3 (4.6-6.20); Red Cell Distribution Width 20.4 % (11.5-14.5); White Blood Count 9.9 K/mm3 (4.5-10.0)
[2022-06-26 15:48] LABS: Alanine Aminotransferase 26 U/L (6-50); Albumin Level 2.6 g/dL (3.5-5.1); Alkaline Phosphatase 78 U/L (38-126); Anion Gap 6 mmol/L (8-16); Aspartate Amino Transferase 21 U/L (17-59); Bilirubin,Total 0.3 mg/dL (0.2-1.3); Blood Urea Nitrogen 7 mg/dL (9-20); Calcium 7.3 mg/dL (8.4-10.2); Carbon Dioxide 26 mmol/L (22-30); Chloride 105 mmol/L (98-107); Estimated Glomerular Filt Rate > 60; Glucose 98 mg/dL (65-110); Sodium 137 mmol/L (137-145)
[2022-06-26 16:15] LABS: Anisocytosis 1+ (NORMAL); Hypochromasia 1+ (NORMAL); Macrocytosis 1+ (NORMAL); Platelet Estimate Adequate (Adequate); Schistocytes None Seen (NORMAL)
== END 2022-06-26 14:09 | disposition home or self-care (01) ==
LOC: ANHLAB 14:11
PROVIDERS: PCP Family Medicine; Visit Provider Physician Assistant
DX: L89.159 Pressure ulcer of sacral region, unspecified stage (principal); D64.9 Anemia, unspecified; I10 Essential (primary) hypertension; E87.6 Hypokalemia
CPT/HCPCS: 36415; 80053; 85025

== ENCOUNTER 2022-06-28 16:03 | Outpatient (CLI) | payer MEDICARE, OTHER, SELFPAY ==
[2022-06-28 15:47] LABS: Anion Gap 2 mmol/L (8-16); Blood Urea Nitrogen 10 mg/dL (9-20); Calcium 7.5 mg/dL (8.4-10.2); Carbon Dioxide 30 mmol/L (22-30); Chloride 105 mmol/L (98-107); Estimated Glomerular Filt Rate > 60; Glucose 144 mg/dL (65-110); Potassium 3.2 mmol/L (3.4-5.0); Sodium 137 mmol/L (137-145)
[2022-06-28 22:15] LABS: Toxigenic C. Diff POSITIVE (NEGATIVE)
== END 2022-06-28 16:04 | disposition home or self-care (01) ==
PROVIDERS: Physician Assistant; PCP Family Medicine; Visit Provider Internal Medicine
DX: E87.6 Hypokalemia (principal)
CPT/HCPCS: 36415; 80048; 87493

== ENCOUNTER 2022-07-05 12:36 | Outpatient (RCR) | payer MEDICARE, OTHER, SELFPAY ==
[2022-07-05 13:00] VITALS: BMI 18.3
== END 2022-07-23 14:33 | disposition home or self-care (01) ==
LOC: ANHWOC 12:36
PROVIDERS: PCP Family Medicine; Visit Provider Physician Assistant
DX: L89.159 Pressure ulcer of sacral region, unspecified stage (principal)
CPT/HCPCS: 99213; G0463

== ENCOUNTER 2022-07-10 14:31 | Outpatient (CLI) | payer MEDICARE, OTHER, SELFPAY ==
[2022-07-10 15:09] LABS: Hematocrit 33.3 % (42.0-52.0); Hemoglobin 10.2 g/dL (14.0-18.0); Mean Corpuscular HGB Conc 30.6 g/dl (32-36); Mean Corpuscular Hemoglobin 32.8 pg (26-34); Mean Corpuscular Volume 107.1 fl (80-100); Mean Platelet Volume 8.4 fl (7.4-10.4); Platelet Count Result 262 k/mm3 (150-375); Red Blood Count 3.11 M/mm3 (4.6-6.20); Red Cell Distribution Width 18.6 % (11.5-14.5); White Blood Count 10.6 K/mm3 (4.5-10.0)
[2022-07-10 15:18] LABS: Anion Gap 1 mmol/L (8-16); Blood Urea Nitrogen 11 mg/dL (9-20); Calcium 8.2 mg/dL (8.4-10.2); Carbon Dioxide 35 mmol/L (22-30); Chloride 99 mmol/L (98-107); Estimated Glomerular Filt Rate > 60; Glucose 146 mg/dL (65-110); Potassium 3.9 mmol/L (3.4-5.0); Sodium 135 mmol/L (137-145)
[2022-07-10 15:49] LABS: Iron 21 ug/dL (49-181)
[2022-07-10 15:58] LABS: Percent Iron Saturation 10 % (20-50)
[2022-07-10 16:24] LABS: Folic Acid 6.3 ng/mL (2.76->20)
== END 2022-07-10 14:32 | disposition home or self-care (01) ==
LOC: ANHLAB 14:32
PROVIDERS: PCP Family Medicine; Visit Provider Physician Assistant
DX: I11.0 Hypertensive heart disease with heart failure (principal); I50.9 Heart failure, unspecified; E87.6 Hypokalemia; D64.9 Anemia, unspecified
CPT/HCPCS: 36415; 80048; 82607; 82728; 82746; 83540; 83550; 85027

== ENCOUNTER 2022-09-26 09:53 | Outpatient (CLI) | payer MEDICARE, OTHER, SELFPAY ==
--- NOTE | ~2022-09-26 | CT_ITS ---
EXAMINATION: CT diagnostic chest wo con DATE: 09/26/2022 10:21 INDICATION: R91.1 - Solitary pulmonary nodule TECHNIQUE: Computed tomography (CT) of the chest was performed without intravenous contrast. Addition al 3D reconstructions utilizing coronal maximum intensity projection (MIP) were performed. Automated exposure control and iterative reconstruction technique were employed. The dose-length product was 76 .27 mGy-cm. COMPARISON: None FINDINGS: Mild emphysema with mild left and moderate right apical pleural-parenchymal scarring. 9 x 6 mm right upper lobe nodule. Small calcified right lower lobe nodule consistent with old granulomatous disease. Groundglass opacities and irregular septal line thickening at the dependent periphery of the right l ower lobe most likely atelectasis with differential including less likely mild pulmonary edema or chr onic interstitial fibrosis with nonspecific interstitial pneumonia (NSIP) pattern. No pleural effusio n. Heart size normal. Atherosclerotic coronary artery calcification. Median sternotomy wires and medi astinal surgical clips are consistent with coronary artery bypass grafting. No pericardial effusion. Enlargement of the central pulmonary arteries consistent with pulmonary arterial hypertension. 2 cm l ow-attenuation cyst in the left hepatic lobe. A millimeter exophytic lesion at the right kidney which is more dense in the surrounding renal parenchyma, indeterminate but most likely a complex proteina ceous/hemorrhagic cyst. Suggestion of hydronephrosis at the upper pole the left kidney with effacemen t of the previously seen renal sinus fat. Mild thoracic spondylosis. IMPRESSION: 1. Mild emphysema with biapical pleural-parenchymal scarring, right greater than left. 2. Indeterminate 9 x 6 mm right upper lobe nodule. Correlate with any prior outside imaging and if lo ng-term stability cannot be confirmed, would recommend follow-up chest CT in months. 3. Effacement of the renal sinus fat at the visualized upper pole the left kidney which is new since 06/20/2022 with suggestion of surface hydronephrosis. Recommend correlation with urinalysis and consid er further evaluation with pre and postcontrast CT . Reviewed, dictated and finalized at location B. IMPRESSION: 1. Mild emphysema with biapical pleural-parenchymal scarring, right greater renee n left. 2. Indeterminate 9 x 6 mm right upper lobe nodule. Correlate with any prior out side imaging and if long-term stability cannot be confirmed, would recommend fo llow-up chest CT in months. 3. Effacement of the renal sinus fat at the visualized upper pole the left kidn ey which is new since 06/20/2022 with suggestion of surface hydronephrosis. James mmend correlation with urinalysis and consider further evaluation with pre and postcontrast CT .
== END 2022-09-26 09:54 | disposition home or self-care (01) ==
LOC: ANHIMG 09:56
PROVIDERS: PCP Family Medicine; Visit Provider Physician Assistant
DX: R91.1 Solitary pulmonary nodule (principal); J43.9 Emphysema, unspecified
CPT/HCPCS: 71250

== ENCOUNTER 2022-09-28 14:07 | Outpatient (CLI) | payer MEDICARE, OTHER, SELFPAY ==
[2022-09-28 14:48] LABS: Alanine Aminotransferase 26 U/L (6-50); Albumin Level 3.4 g/dL (3.5-5.1); Alkaline Phosphatase 67 U/L (38-126); Anion Gap 2 mmol/L (8-16); Aspartate Amino Transferase 24 U/L (17-59); Bilirubin,Total 0.2 mg/dL (0.2-1.3); Blood Urea Nitrogen 19 mg/dL (9-20); Calcium 8.7 mg/dL (8.4-10.2); Carbon Dioxide 33 mmol/L (22-30); Chloride 103 mmol/L (98-107); Estimated Glomerular Filt Rate > 60; Glucose 130 mg/dL (65-110); Sodium 138 mmol/L (137-145)
[2022-09-28 15:08] LABS: Basophils Absolute Auto 0.1 K/mm3 (0.0-0.1); Basophils Percent Auto 0.7 % (0.2-1.2); Eosinophils Absolute Auto 0.1 K/mm3 (0-0.3); Eosinophils Percent Auto 1.2 % (0-4.4); Hematocrit 37.1 % (42.0-52.0); Hemoglobin 11.2 g/dL (14.0-18.0); Immature Granulocyte Absolute 0.02 K/mm3 (0.00-0.031); Immature Granulocyte Percent A 0.3 % (0-0.5); Lymphocytes Absolute Auto 0.67 K/mm3 (0.9-3.2); Lymphocytes Percent Auto 9.3 % (18.3-44.2); Mean Corpuscular HGB Conc 30.2 g/dl (32-36); Mean Corpuscular Hemoglobin 31.3 pg (26-34); Mean Corpuscular Volume 103.6 fl (80-100); Mean Platelet Volume 9.1 fl (7.4-10.4); Monocytes Absolute Auto 0.5 K/mm3 (0.1-0.6); Monocytes Percent Auto 7.1 % (2.6-8.5); Neutrophils Absolute Auto 5.9 K/mm3 (1.3-6.7); Neutrophils Percent Auto 81.4 % (45.5-73.1); Platelet Count Result 273 k/mm3 (150-375); Red Blood Count 3.58 M/mm3 (4.6-6.20); Red Cell Distribution Width 15.5 % (11.5-14.5); White Blood Count 7.2 K/mm3 (4.5-10.0)
[2022-09-28 15:54] LABS: Folic Acid 11.5 ng/mL (2.76->20)
[2022-09-28 16:23] LABS: Iron 35 ug/dL (49-181)
[2022-09-28 16:35] LABS: Percent Iron Saturation 15 % (20-50)
== END 2022-09-28 14:08 | disposition home or self-care (01) ==
PROVIDERS: PCP Family Medicine; Visit Provider Physician Assistant
DX: D64.9 Anemia, unspecified (principal); E87.6 Hypokalemia; I10 Essential (primary) hypertension; I50.9 Heart failure, unspecified
CPT/HCPCS: 36415; 80053; 82607; 82728; 82746; 83540; 83550; 85025

== ENCOUNTER 2022-11-15 20:31 | Emergency (ER) | payer MEDICARE, OTHER, SELFPAY ==
[2022-11-15 20:36] VITALS: BP 147/61; PULSE 68; RESP 18; TEMP 36.7; O2SAT 100
[2022-11-15 21:59] LABS: Basophils Percent Auto 0.5 % (0.2-1.2); Eosinophils Absolute Auto 0.1 K/mm3 (0-0.3); Eosinophils Percent Auto 1.1 % (0-4.4); Hematocrit 36.2 % (42.0-52.0); Hemoglobin 11.2 g/dL (14.0-18.0); Immature Granulocyte Absolute 0.02 K/mm3 (0.00-0.031); Immature Granulocyte Percent A 0.3 % (0-0.5); Lymphocytes Absolute Auto 0.85 K/mm3 (0.9-3.2); Lymphocytes Percent Auto 13.1 % (18.3-44.2); Mean Corpuscular HGB Conc 30.9 g/dl (32-36); Mean Corpuscular Hemoglobin 31.2 pg (26-34); Mean Corpuscular Volume 100.8 fl (80-100); Monocytes Absolute Auto 0.5 K/mm3 (0.1-0.6); Monocytes Percent Auto 6.9 % (2.6-8.5); Neutrophils Absolute Auto 5.1 K/mm3 (1.3-6.7); Neutrophils Percent Auto 78.1 % (45.5-73.1); Platelet Count Result 220 k/mm3 (150-375); Red Blood Count 3.59 M/mm3 (4.6-6.20); Red Cell Distribution Width 15.9 % (11.5-14.5); White Blood Count 6.5 K/mm3 (4.5-10.0)
[2022-11-15 22:09] LABS: Alanine Aminotransferase 14 U/L (6-50); Albumin Level 3.4 g/dL (3.5-5.1); Alkaline Phosphatase 61 U/L (38-126); Anion Gap 0 mmol/L (8-16); Aspartate Amino Transferase 23 U/L (17-59); Bilirubin,Total 0.2 mg/dL (0.2-1.3); Blood Urea Nitrogen 17 mg/dL (9-20); Calcium 8.5 mg/dL (8.4-10.2); Carbon Dioxide 34 mmol/L (22-30); Chloride 102 mmol/L (98-107); Estimated CRCL calculation 51 ml/min; Estimated Glomerular Filt Rate > 60; Glucose 95 mg/dL (65-110); Sodium 136 mmol/L (137-145)
[2022-11-15 22:38] LABS: RBC Urine >100 /hpf (0-2); Squamous Epithelial Cell Urine None seen /hpf (Few); WBC Urine >100 /hpf
[2022-11-15 22:50] LABS: Appearance Urine Turbid (Clear); Bilirubin Urine Negative (Negative); Blood Urine 3+ (Negative); Glucose Urine UA Negative (Negative); Ketones Urine Negative (Negative); Leukocyte Esterase Ur 3+ LEU/UL (Negative); Nitrate Urine Negative (Negative); Protein Urine 1+ mg/dL (Negative); Specific Grav Ur 1.015 (1.001-1.035)
[2022-11-15 22:54] LABS: Bacteria Urine 2+ /hpf; Color Urine Dark Orange (Yellow)
[2022-11-15 22:55] LABS: Add Urine Microscopic? YES
--- NOTE | 2022-11-15 23:10 | ED.GENADULT ---
HPI - General Adult General Chief complaint: Urogenital-Male Stated complaint: blood in urine Time Seen by Provider: 11/15/22 21:40 History of Present Illness HPI narrative: 76-year-old male with history of prostate and bladder cancer and frequent urinary tract infections presented the emergency department for evaluation of hematuria. Patient does have a PICC line in place and is getting IV antibiotics. Patient does take Xarelto and was recently started on Plavix. After starting the Plavix patient began having increased hematuria. Patient did not take his Plavix today after the bleeding started and patient states over the course of the day the bleeding has begun to improve. Patient does not feel that he is retaining urine. Related Data Home Medications Medication Instructions Recorded Confirmed carvedilol 12.5 mg tablet 3.125 mg PO BID 01/19/22 09/28/22 Allergies Allergy/AdvReac Type Severity Reaction Status Date / Time Aminoglycosides Allergy Severe RASH Verified 11/15/22 20:36 bacitracin Allergy Severe Rash Verified 11/15/22 20:36 neomycin Allergy Severe RASH Verified 11/15/22 20:36 polymyxin B Allergy Severe Rash Verified 11/15/22 20:36 Review of Systems Review of Systems: All systems reviewed & are unremarkable except as noted in HPI and below [facility] Past Medical History Medical History (Updated 11/16/22 @ 00:00 by Renea Castillo) Acute CVA (cerebrovascular accident) Arthritis Aspiration into airway Basal cell carcinoma (BCC) on face removed in 2011 C. difficile colitis CAD (coronary artery disease) CHF (congestive heart failure) Cough CVA (cerebral vascular accident) Cyst of right kidney DDD (degenerative disc disease) Enlarged prostate ESBL (extended spectrum beta-lactamase) producing bacteria infection Farsightedness Foot fracture, left History of infection due to ESBL Klebsiella oxytoca History of left above knee amputation History of stroke with current residual effects HTN (hypertension) Hypercholesteremia Left ear hearing loss Myocardial infarction Renal disease Sepsis Surgical History Surgical History H/O plastic surgery On ankle for infected dog bite History of cardiac cath History of open heart surgery Hx of AKA (above knee amputation) left Hx of CABG Family History Family History Father Congestive heart failure Mother Diabetes mellitus Cerebrovascular accident Sibling Diabetes mellitus Sibling No problems noted. Social History Social History Social History: Patient lives at home with his , Loan, whom he designates as his surrogate MDM. His PCP is Dr. Kenny. Code status: DNR/DNI (per patient request) Smoking packs per day: 0.5 Smoking cigarettes per day: 10.0 Years smoked: 50 Smoking pack-years: 25.00 Smoking status: Current every day smoker Tobacco type: cigarettes Second hand tobacco smoke exposure: Yes Additional smoking assessment comments: pt states he is not interested in quitting right now Alcohol intake: never Substance use: never Substance use type: does not use Lack of Transportation: No Lack of Food: Never True Current Housing: I Have Housing Concerned About Future Housing: No Difficulty Paying Gas/Electric Bills: No Difficulty Paying for Meds: No Currently Unemployed: No Education: Bachelor's Degree Difficulty w/ Childcare or Family Care: No Living arrangements: with family Additional living arrangements comments: Gender identity (if verbalized by the patient): Male Sexual Orientation (if Verbalized by the Patient): Straight or Heterosexual Spiritual care concerns: No Agree to blood products: Yes Exam Narrative: APPEARANCE: Well appearing, no pain, no distress, w
--- NOTE | 2022-11-15 23:22 | PC.NURSE ---
pt care and report given to SHERYL Copeland. all questions answered.
[2022-11-15 23:39] VITALS: BP 151/66; PULSE 53; RESP 19; TEMP 36.8; O2SAT 99
== END 2022-11-15 23:40 | disposition home or self-care (01) ==
PROVIDERS: Emergency Provider Emergency Medicine; PCP Family Medicine
DX: R31.9 Hematuria, unspecified (principal); I25.2 Old myocardial infarction; I25.10 Atherosclerotic heart disease of native coronary artery without angina pectoris; I50.9 Heart failure, unspecified; I11.0 Hypertensive heart disease with heart failure; E78.00 Pure hypercholesterolemia, unspecified; N28.9 Disorder of kidney and ureter, unspecified; M19.90 Unspecified osteoarthritis, unspecified site; F17.210 Nicotine dependence, cigarettes, uncomplicated; Z95.1 Presence of aortocoronary bypass graft; Z86.73 Personal history of transient ischemic attack (TIA), and cerebral infarction without residual deficits; Z85.46 Personal history of malignant neoplasm of prostate; Z85.51 Personal history of malignant neoplasm of bladder; Z85.828 Personal history of other malignant neoplasm of skin; Z89.612 Acquired absence of left leg above knee; Z79.01 Long term (current) use of anticoagulants; Z79.02 Long term (current) use of antithrombotics/antiplatelets
CPT/HCPCS: 36415; 80053; 81001; 85025; 87086; 99283

== ENCOUNTER 2023-01-18 10:57 | Outpatient (CLI) | payer MEDICARE, OTHER, SELFPAY ==
[2023-01-18 11:44] VITALS: BP 133/73; PULSE 71; RESP 14; TEMP 36.6; O2SAT 100; BMI 17.2
== END 2023-01-18 10:58 | disposition home or self-care (01) ==
PROVIDERS: Visit Provider Family Medicine
DX: N39.0 Urinary tract infection, site not specified (principal)
CPT/HCPCS: 36569; 96365; 99202; G0463; J1335

== ENCOUNTER 2023-03-06 12:41 | Outpatient (CLI) | payer MEDICARE, OTHER, SELFPAY ==
[2023-03-06 21:01] LABS: Appearance Urine Turbid (Clear); Bacteria Urine None Seen /hpf; Bilirubin Urine 1+ (Negative); Blood Urine Trace (Negative); Calcium Oxalate Crystals Urine Present /hpf; Color Urine Dark Yellow (Yellow); Glucose Urine UA Negative (Negative); Ketones Urine Negative (Negative); Leukocyte Esterase Ur Trace LEU/UL (Negative); Nitrate Urine Negative (Negative); Non Pathogenic Casts 0-2; Protein Urine 2+ mg/dL (Negative); Specific Grav Ur 1.024 (1.001-1.035); Squamous Epithelial Cell Urine Few /hpf (Few); Urobilinogen Urine 0.2 mg/dL (<2.0); WBC Urine 21-50 /hpf; pH Urine 5.5 (5.0-9.0)
[2023-03-06 21:03] LABS: Add Urine Microscopic? YES
== END 2023-03-06 12:42 | disposition home or self-care (01) ==
PROVIDERS: PCP Family Medicine; Visit Provider Nurse Practitioner Gerontology
DX: N39.0 Urinary tract infection, site not specified (principal)
CPT/HCPCS: 81001; 87086; 87147; 87181; 87186

== ENCOUNTER 2023-04-02 11:14 | Outpatient (CLI) | payer MEDICARE, OTHER, SELFPAY ==
--- NOTE | ~2023-04-02 | CT_ITS ---
CT Scan of the Chest without Contrast: Clinical Indication: Lung nodule Technique: Contiguous sections were acquired throughout the chest without intravenous contrast. Dose reduction technique was used on this scan by utilizing automated exposure control and iterative recon struction technique. The dose-length product (DLP) was 92.18 mGy-cm. COMPARISON: 09/26/2022 Findings: There is no evidence of any significant mediastinal, hilar or axillary lymphadenopathy. There are ath erosclerotic ossifications of the aorta and [place] coronary arteries. Status post probable CABG. There is no evidence of pleural or pericardial effusion. Right upper lobe pulmonary nodule is mild increase in size, now measuring up to 1.2 cm in diameter. S table probable emphysematous change in right apical scarring. Images through the upper abdomen reveal small hepatic cysts. Impression: Right upper lobe pulmonary nodule is increased in size, now measuring 1.2 cm. Interval growth is susp icious for small neoplastic lesion. Consider attempted tissue sampling and/or PET/CT at this time. Stable emphysematous change and right apical scarring. Reviewed, dictated and finalized at location [facility]. [facility] Impression: Right upper lobe pulmonary nodule is increased in size, now measuring 1.2 cm. I nterval growth is suspicious for small neoplastic lesion. Consider attempted ti ssue sampling and/or PET/CT at this time. Stable emphysematous change and right apical scarring.
== END 2023-04-02 11:15 | disposition home or self-care (01) ==
PROVIDERS: PCP Family Medicine; Visit Provider Family Medicine
DX: R91.1 Solitary pulmonary nodule (principal); Z91.89 Other specified personal risk factors, not elsewhere classified
CPT/HCPCS: 71250

== ENCOUNTER 2023-07-18 13:52 | Outpatient (CLI) | payer MEDICARE, OTHER, SELFPAY ==
[2023-07-18 14:25] LABS: Basophils Percent Auto 0.6 % (0.2-1.2); Eosinophils Absolute Auto 0.1 K/mm3 (0-0.3); Eosinophils Percent Auto 1.6 % (0-4.4); Hematocrit 41.5 % (42.0-52.0); Hemoglobin 12.9 g/dL (14.0-18.0); Immature Granulocyte Absolute 0.02 K/mm3 (0.00-0.031); Immature Granulocyte Percent A 0.4 % (0-0.5); Lymphocytes Absolute Auto 0.89 K/mm3 (0.9-3.2); Lymphocytes Percent Auto 17.5 % (18.3-44.2); Mean Corpuscular HGB Conc 31.1 g/dl (32-36); Mean Corpuscular Hemoglobin 30.2 pg (26-34); Mean Corpuscular Volume 97.2 fl (80-100); Mean Platelet Volume 9.7 fl (7.4-10.4); Monocytes Absolute Auto 0.4 K/mm3 (0.1-0.6); Monocytes Percent Auto 8.2 % (2.6-8.5); Neutrophils Absolute Auto 3.7 K/mm3 (1.3-6.7); Neutrophils Percent Auto 71.7 % (45.5-73.1); Platelet Count Result 196 k/mm3 (150-375); Red Blood Count 4.27 M/mm3 (4.6-6.20); Red Cell Distribution Width 16.8 % (11.5-14.5); White Blood Count 5.1 K/mm3 (4.5-10.0)
[2023-07-18 14:41] LABS: Alanine Aminotransferase 17 U/L (6-50); Albumin Level 3.6 g/dL (3.5-5.1); Alkaline Phosphatase 75 U/L (38-126); Anion Gap 4 mmol/L (4-12); Aspartate Amino Transferase 28 U/L (17-59); Bilirubin,Total 0.4 mg/dL (0.2-1.3); Blood Urea Nitrogen 24 mg/dL (9-20); Calcium 9.5 mg/dL (8.4-10.2); Carbon Dioxide 28 mmol/L (22-30); Chloride 110 mmol/L (98-107); Estimated Glomerular Filt Rate > 60; Glucose 131 mg/dL (65-110); Potassium 3.9 mmol/L (3.4-5.0); Sodium 142 mmol/L (137-145)
[2023-07-18 15:10] LABS: Thyroid Stimulating Hormone 0.902 uIU/mL (0.465-4.680)
[2023-07-18 15:46] LABS: Folic Acid 9.4 ng/mL (2.76->20)
[2023-07-18 21:27] LABS: Iron 57 ug/dL (49-181)
[2023-07-18 21:40] LABS: Percent Iron Saturation 20 % (20-50)
== END 2023-07-18 13:53 | disposition home or self-care (01) ==
LOC: ANHLAB 13:59
PROVIDERS: PCP Family Medicine; Visit Provider Physician Assistant
DX: D64.9 Anemia, unspecified (principal); I73.9 Peripheral vascular disease, unspecified; R53.83 Other fatigue; I50.9 Heart failure, unspecified; I11.0 Hypertensive heart disease with heart failure
CPT/HCPCS: 36415; 80053; 82607; 82728; 82746; 83540; 83550; 84443; 85025

== ENCOUNTER 2023-09-23 12:14 | Outpatient (CLI) | payer MEDICARE, OTHER, SELFPAY ==
[2023-09-23 13:01] LABS: Anion Gap 3 mmol/L (4-12); Blood Urea Nitrogen 18 mg/dL (9-20); Calcium 8.8 mg/dL (8.4-10.2); Carbon Dioxide 24 mmol/L (22-30); Chloride 113 mmol/L (98-107); Estimated Glomerular Filt Rate > 60; Glucose 84 mg/dL (65-110); Potassium 4.6 mmol/L (3.4-5.0); Sodium 140 mmol/L (137-145)
== END 2023-09-23 12:15 | disposition home or self-care (01) ==
PROVIDERS: PCP Family Medicine; Visit Provider Physician Assistant Medical
DX: E87.6 Hypokalemia (principal)
CPT/HCPCS: 36415; 80048

== ENCOUNTER 2023-10-01 14:44 | Outpatient (CLI) | payer MEDICARE, OTHER, SELFPAY ==
[2023-10-01 15:29] LABS: Anion Gap 5 mmol/L (4-12); Blood Urea Nitrogen 24 mg/dL (9-20); Calcium 8.8 mg/dL (8.4-10.2); Carbon Dioxide 27 mmol/L (22-30); Chloride 108 mmol/L (98-107); Estimated Glomerular Filt Rate > 60; Glucose 85 mg/dL (65-110); Potassium 4.1 mmol/L (3.4-5.0); Sodium 140 mmol/L (137-145)
== END 2023-10-01 14:45 | disposition home or self-care (01) ==
LOC: ANHLAB 14:46
PROVIDERS: PCP Family Medicine; Visit Provider Physician Assistant
DX: E87.6 Hypokalemia (principal)
CPT/HCPCS: 36415; 80048

== ENCOUNTER 2023-12-15 10:55 | Emergency (ER) | payer MEDICARE, OTHER, SELFPAY ==
[2023-12-15 10:59] VITALS: BP 134/57; PULSE 80; RESP 17; TEMP 36.5; O2SAT 100
[2023-12-15 11:05] VITALS: BP 132/65; PULSE 74; RESP 12; TEMP 36.8; O2SAT 100
--- NOTE | 2023-12-15 11:14 | PC.NURSE ---
Patient states he has a hx of enlarged prostate. Patient states he is non compliant with his Flomax medication. Patient bladder scan showed 62 mL in bladder. Patient is only having pain while urinating which is 3/10.
[2023-12-15 11:46] LABS: Basophils Percent Auto 0.7 % (0.2-1.2); Eosinophils Absolute Auto 0.1 K/mm3 (0-0.3); Eosinophils Percent Auto 1.6 % (0-4.4); Hematocrit 38.2 % (42.0-52.0); Hemoglobin 12.3 g/dL (14.0-18.0); Immature Granulocyte Absolute 0.02 K/mm3 (0.00-0.031); Immature Granulocyte Percent A 0.4 % (0-0.5); Lymphocytes Absolute Auto 0.66 K/mm3 (0.9-3.2); Lymphocytes Percent Auto 11.7 % (18.3-44.2); Mean Corpuscular HGB Conc 32.2 g/dl (32-36); Mean Corpuscular Hemoglobin 30.3 pg (26-34); Mean Corpuscular Volume 94.1 fl (80-100); Mean Platelet Volume 10.6 fl (7.4-10.4); Monocytes Absolute Auto 0.5 K/mm3 (0.1-0.6); Monocytes Percent Auto 8.4 % (2.6-8.5); Neutrophils Absolute Auto 4.3 K/mm3 (1.3-6.7); Neutrophils Percent Auto 77.2 % (45.5-73.1); Platelet Count Result 218 k/mm3 (150-375); Red Blood Count 4.06 M/mm3 (4.6-6.20); Red Cell Distribution Width 16.8 % (11.5-14.5); White Blood Count 5.6 K/mm3 (4.5-10.0)
[2023-12-15] MEDS: SODIUM CHLORIDE 0.9% IV 1,000 ML 999 ML IV CONT (11:56)
[2023-12-15 11:58] LABS: Add Urine Microscopic? YES; Appearance Urine Cloudy (Clear); Bacteria Urine 4+ /hpf; Bilirubin Urine Negative (Negative); Blood Urine 2+ (Negative); Color Urine Yellow (Yellow); Glucose Urine UA Negative (Negative); Hyaline Casts Urine Present /lpf; Ketones Urine Negative (Negative); Leukocyte Esterase Ur 3+ LEU/UL (Negative); Need Manual Microscopic Reviewed; Nitrate Urine Positive (Negative); Protein Urine 2+ mg/dL (Negative); Specific Grav Ur 1.012 (1.001-1.035); Squamous Epithelial Cell Urine None Seen /hpf (Few); Urobilinogen Urine 0.2 mg/dL (<2.0); WBC Urine >100 /hpf (0-3)
[2023-12-15 12:03] LABS: Alanine Aminotransferase 10 U/L (6-50); Albumin Level 3.4 g/dL (3.5-5.1); Alkaline Phosphatase 63 U/L (38-126); Anion Gap 6 mmol/L (4-12); Aspartate Amino Transferase 23 U/L (17-59); Bilirubin,Total 0.4 mg/dL (0.2-1.3); Blood Urea Nitrogen 20 mg/dL (9-20); Calcium 8.8 mg/dL (8.4-10.2); Carbon Dioxide 25 mmol/L (22-30); Chloride 104 mmol/L (98-107); Estimated CRCL calculation 47 ml/min; Estimated Glomerular Filt Rate > 60; Glucose 141 mg/dL (65-110); Potassium 3.4 mmol/L (3.4-5.0); Sodium 135 mmol/L (137-145)
[2023-12-15] MEDS: TAMSULOSIN HCL 0.4 MG CAPSULE PO (12:27)
[2023-12-15] MEDS: PHENAZOPYRIDINE HCL 100 MG TABLET 200 MG PO (12:27)
--- NOTE | 2023-12-15 12:27 | ED.GENADULT ---
HPI - General Adult General Chief complaint: Urogenital-Male Stated complaint: difficulty urinating Time Seen by Provider: 12/15/23 11:08 History of Present Illness HPI narrative: Patient is a 77-year-old male who presents to the emergency department this morning complaining of dysuria and concern that he might be retaining some urine. Patient states the symptoms been ongoing for the past 2-3 days. Patient does follow-up with urologist Dr. Whalen regularly and states that he is supposed to be on Flomax regularly but he ran out of his script and he has not been taking it. Denies any abdominal pain, any fevers or chills, nausea or vomiting, chest pain or shortness of breath. No additional symptoms or concerns at this time. Related Data Home Medications Medication Instructions Recorded Confirmed rivaroxaban 2.5 mg tablet 2.5 mg PO BID 04/21/23 10/01/23 Allergies Allergy/AdvReac Type Severity Reaction Status Date / Time Aminoglycosides Allergy Severe RASH Verified 12/15/23 11:03 bacitracin Allergy Severe Rash Verified 12/15/23 11:03 neomycin Allergy Severe RASH Verified 12/15/23 11:03 polymyxin B Allergy Severe Rash Verified 12/15/23 11:03 Review of Systems Review of Systems: All systems are reviewed and are negative unless stated otherwise in the HPI. [facility] Past Medical History Medical History Acute CVA (cerebrovascular accident) Arthritis Aspiration into airway Basal cell carcinoma (BCC) on face removed in 2011 C. difficile colitis CAD (coronary artery disease) CHF (congestive heart failure) Cough CVA (cerebral vascular accident) Cyst of right kidney DDD (degenerative disc disease) Enlarged prostate ESBL (extended spectrum beta-lactamase) producing bacteria infection Farsightedness Foot fracture, left History of infection due to ESBL Klebsiella oxytoca History of stroke with current residual effects HTN (hypertension) Hypercholesteremia Left ear hearing loss Myocardial infarction Renal disease S/P angiogram of extremity Sepsis Surgical History Surgical History H/O plastic surgery On ankle for infected dog bite History of cardiac cath History of left above knee amputation History of open heart surgery Hx of AKA (above knee amputation) left Hx of CABG Family History Family History Father Congestive heart failure Mother Diabetes mellitus Cerebrovascular accident Sibling Diabetes mellitus Sibling No problems noted. Social History Social History Social History: Patient lives at home with his , Loan, whom he designates as his surrogate MDM. His PCP is Dr. Kenny. Code status: DNR/DNI (per patient request) Smoking packs per day: 0.5 Smoking cigarettes per day: 10.0 Years smoked: 50 Smoking pack-years: 25.00 Smoking status: Current every day smoker Tobacco type: cigarettes Second hand tobacco smoke exposure: Yes Additional smoking assessment comments: pt states he is not interested in quitting right now Alcohol intake: former Substance use: never Substance use type: does not use Lack of Transportation: No Lack of Food: Never True Current Housing: I Have Housing Concerned About Future Housing: No Difficulty Paying Gas/Electric Bills: No Difficulty Paying for Meds: No Currently Unemployed: No Education: Bachelor's Degree Difficulty w/ Childcare or Family Care: No Living arrangements: with family Additional living arrangements comments: Gender identity (if verbalized by the patient): Male Sexual Orientation (if Verbalized by the Patient): Straight or Heterosexual Spiritual care concerns: No Agree to blood products: Yes Exam Narrative: General
[2023-12-15 12:32] VITALS: PULSE 65; RESP 17; TEMP 36.4; O2SAT 99
== END 2023-12-15 12:40 | disposition home or self-care (01) ==
PROVIDERS: Emergency Provider Emergency Medicine; PCP Family Medicine
DX: N39.0 Urinary tract infection, site not specified (principal); I25.10 Atherosclerotic heart disease of native coronary artery without angina pectoris; I50.9 Heart failure, unspecified; I11.0 Hypertensive heart disease with heart failure; I25.2 Old myocardial infarction; I69.30 Unspecified sequelae of cerebral infarction; E78.00 Pure hypercholesterolemia, unspecified; N40.0 Benign prostatic hyperplasia without lower urinary tract symptoms; N28.9 Disorder of kidney and ureter, unspecified; M19.90 Unspecified osteoarthritis, unspecified site; F17.210 Nicotine dependence, cigarettes, uncomplicated; Z85.828 Personal history of other malignant neoplasm of skin; Z95.1 Presence of aortocoronary bypass graft; Z89.612 Acquired absence of left leg above knee; Z79.02 Long term (current) use of antithrombotics/antiplatelets; Z79.01 Long term (current) use of anticoagulants; Z79.899 Other long term (current) drug therapy
CPT/HCPCS: 36415; 80053; 81001; 85025; 87077; 87086; 87088; 87186; 96360; 99283; A9270; J7030

== ENCOUNTER 2024-06-18 11:24 | Outpatient (CLI) | payer MEDICARE, OTHER, SELFPAY ==
[2024-06-18 12:45] LABS: Basophils Percent Auto 0.5 % (0.2-1.2); Eosinophils Absolute Auto 0.1 K/mm3 (0-0.3); Eosinophils Percent Auto 1.4 % (0-4.4); Hematocrit 39.8 % (42.0-52.0); Hemoglobin 12.4 g/dL (14.0-18.0); Immature Granulocyte Absolute 0.02 K/mm3 (0.00-0.031); Immature Granulocyte Percent A 0.3 % (0-0.5); Lymphocytes Absolute Auto 0.93 K/mm3 (0.9-3.2); Lymphocytes Percent Auto 16.2 % (18.3-44.2); Mean Corpuscular HGB Conc 31.2 g/dl (32-36); Mean Platelet Volume 10.8 fl (7.4-10.4); Monocytes Absolute Auto 0.4 K/mm3 (0.1-0.6); Monocytes Percent Auto 7.5 % (2.6-8.5); Neutrophils Absolute Auto 4.3 K/mm3 (1.3-6.7); Neutrophils Percent Auto 74.1 % (45.5-73.1); Platelet Count Result 166 k/mm3 (150-375); Red Blood Count 4.28 M/mm3 (4.6-6.20); Red Cell Distribution Width 17.9 % (11.5-14.5); White Blood Count 5.8 K/mm3 (4.5-10.0)
--- OUTSIDE RECORDS SUMMARY | 2024-06-18 12:50 | XMS_ITS | CONTINUITY OF CARE DOCUMENT ---
Author Name [email or web address] Address Unknown Organization [facility] Address [address] [address] [place] [address] Phone [phone] Care Team Providers Care Journalists And Other Writers Name Role Phone Camacho LEE, Luke Unavailable [phone] ALON AVILES MD Unavailable ALON AVILES MD Unavailable [phone] [employer] Payer name Policy type / Coverage type [employer] 's Administr ation plan [id number]
--- OUTSIDE RECORDS SUMMARY | 2024-06-18 12:50 | XMS_ITS | Clinical Summary ---
Author Organization [facility] Address [address] [place] [id number] Care Team Providers Care Journeyman Wireman Name Role Phone Unavailable Primary Care Provider Unavailabl e Social History Tobacco Use Types Packs/Day Years Used Date Smoking Tobacco: Never Assessed Sex and Gender Information Value Date Recorded Sex Assigned at Not on file Legal Sex Male 2:32 PM EST Gender Identity Not on file Sexual Orientation Not on file Plan of Treatment Not on file
--- OUTSIDE RECORDS SUMMARY | 2024-06-18 12:50 | XMS_ITS ---
Author Organization [facility] [address] Address [address] [place] [address] Care Team Providers Care Mainframe Developer Name Role Phone Som Kenny MD Primary Care Provider Kamron Bernard MD Unavailable [phone] Jasen Whalen MD Unavailable [phone] Active Problems Problem Noted Date Diagnosed Date Electrolyte abnormality 05/02/2023 Assessment & Plan (05/09/2023 8:29 AM ADVANCED PRACTICE REGISTERED NURSE): - 03/05: Hypokalemia to 3.3, s/p PO replacement - 03/06: K 3.3, s/p replacement - Replete K as needed - Monitor BMP S/P flap graft 05/01/2023 Wound infection 05/01/2023 Wound infection following procedure 04/29/2023 Assessment & Plan (05/06/2023 2:38 PM ADVANCED PRACTICE REGISTERED NURSE): Mr. Pabon is a 77 yro M w/ CAD, prior CVA, infrarenal AAA, afib and severe PAD s/p L SFA 6mm bypass (2020), L AKA, L infx graft debridement (07/2022), R iliofemoral endarterectomy w/ SFA stent, DCB angioplasty 02/2023 who p/w R groin wound dehiscence 04/30 R groin debridement, rectus femoris flap. Op note commented on fluid tracking from open wound down to femoral vessels and patch angioplasty (performed 03/07/23) was adhesed to surrounding tissue and a layer of fluid tracking directly to patch. No OR cultures were taken 05/03 PRS split thickness graft Wound Cx from clinic (04/29):MRSA (S: doxy, ceftaroline, linezolid, bactrim, vanc), Pseudomonas (sensitive to all Abx tested), and mixed orgs Patient's renal function makes use of Vancomycin less ideal. Please stop Vancomycin and start Daptomycin 8mg/kg IV q24 hrs. Continue Cefepime 2 g IV Q12H Flagyl 500 mg PO Q12H (IV if he can't take PO) ID will follow. Assessment & Plan (05/09/2023 8:29 AM ADVANCED PRACTICE REGISTERED NURSE): - Presented to the office with R groin wound dehiscence. At his 04/19 visit, his groin incision was healing well with one small area of dehiscence that did not probe deep with minimal serous drainage. The incision was evaluated again 04/29 with worsening erythema and swelling. - CTA Soft tissue defect overlying the right common femoral artery with significant soft tissue thickening and stranding as well as fluid tracking along the artery. - 04/30: s/p OR R groin wound debridement, rectus femoris flap - Wound cultures: S. Aureus, Pseudomonas, and mixed orgs. - 05/03: s/p OR split thickness skin graft with PRS. - ID c/s -> vanc/cefe/flagyl started. - 05/07: PICC placed - Activity per PRS : OK for beach chair (hip flexion <60 dgrees at all times); ok for OOB and ambulation with assist. - Dressing per PRS: Daily bacitracin, xeroform and abd to skin graft, STSG donor site with MepAg (keep until it falls off on its own) - Pain control: APAP, Oxy PRN, Gabapentin (home) - Continue Plavix, hold xarelto - ID final recs: Cefepime 2 grams IV every 12 hours Duration 6 weeks, Metronidazole 500 mg by mouth every 8 hours Duration 6 weeks, and Daptomycin 8mg/kg mg IV every 24 hours Duration 6 weeks - Katerina in place Superficial incisional surgical site infection 0 04/10/2023 Assessment & Plan (04/10/2023 12:38 PM ADVANCED PRACTICE REGISTERED NURSE): Underwent RLE revascularization 03/07/2023. On 03/26/2023, there was concern for redness and swelling at the surgical site. Per vascular surgery, the site did not appear obviously infected - he was ultimately treated with 10 days of PO Augmentin (and PO doxycycline added per ID recs due to prior urine cx with MRSA). Since starting/completing antibiotics, the redness resolved and currently does not appear to be infected. Penile irritation 03/11/2023 Assessment & Plan (03/11/2023 9:28 AM ADVANCED PRACTICE REGISTERED NURSE): - Notes some penile irritation which he commonly gets, feels like a yeast infection - Reports typically using antifungal cream for treatment; ordered with subjective improvement - No difficulty with voiding or pain - Encouraged to follow up with Urologist or PCP Recurrent UTI 02/08/2023 Assessment & Plan (02/04/2024 11:48 AM ADVANCED PRACTICE REGISTERED NURSE): -Patient presents to clinic with a possitive urine culture from his PCP. Culture is growing MDR Klebsiella Pneumoniae. He has not received any treatment for this. -His symptom today is burning after urination. This started about two months ago and has not gotten worse or better in that time. -We will repeat the UA reflex today. -If the culture remains the same we will get the patient a PICC line and start him on IV antibiotics. -We would consider starting the patient on methenamine after treatment or if the culture is negative. - Discussed with patient the rational for treatment, culture results, risk of recurrent infection, signs/symptoms of recurrent infection, and to contact ID clinic with any questions or concerns. Assessment & Plan (04/10/2023 12:48 PM ADVANCED PRACTICE REGISTERED NURSE): Porfirio Pabon is a 77 year old man with PMH of ischemic heart disease s/p 4v CABG (08/2004), CVA, AAA, PVD, Left AKA and removal of infected graft, RLE vascularization 03/07/2023, atrial fibrillation on Eliquis, prostate cancer s/p radiation (2020), bladder cancer s/p TURBT who presents to the Infectious Diseases Clinic due to history of recurrent UTI. History of prostate cancer s/p radiation (2020) and bladder cancer s/p TURBT - notes that he was diagnosed with recurrent UTI throughout 2022 treated with antibiotics even in the absence of urinary symptoms. He notes a chronic, persistent burning sensation in the suprapubic area which was attributed to prior prostate and bladder cancer treatment. Admitted with dysuria and urinary urgency and frequency 02/08- 02/12 with urine cultures positive for Pseudomonas aeruginosa and Enterococcus faecium from 02/04 - treated with 7 days of PO linezolid and PO ciprofloxacin. He was found to have nonobstructing Left sided nephrolithiasis and underwent laser lithotripsy and Left ureteral stent placement on 02/18 (Shannon and stent removed 02/21). Urine cx 03/06 (prior to OR for RLE revascularization) positive for MRSA which was ultimately treated with 7 days of PO TMP-SMX. Previous Urine cultures in this EMR - has had other positive urine cultures elsewhere 03/06/2023: MRSA 02/11/2023: Pseudomonas aeruginosa 02/04/2023: Pseudomonas aeruginosa, Enterococcus faecium 08/08/2022: Klebsiella pneumoniae ESBL 11/11/2021: Enterococcus faecalis Plan - Discussed with patient and his family that antibiotics are not indicated for asymptomatic bacteriuria (will need to be distinguished from his chronic suprapubic discomfort from prostate and bladder cancer treatment) - Start D-mannose 1g BID to decrease bacterial attachment to bladder epithelium - discussed with patient that this is primarily used for recurrent UTIs, but may have a theoretical benefit for reducing bacteriuria which may decrease the amount of times he gets diagnosed with a UTI due to bacteriuria - Discussed limited efficacy of cranberry supplements and Vitamin C but that he could try them if he wants. Discussed that methenamine is not indicated at this time as low suspicion currently that he has true recurrent UTI. - If patient develops signs or symptoms of UTI, will obtain UA with reflex to culture and treat based on organism (standing order placed) - If patient is prescribed antibiotics for a UTI, they will reach out via MyChart to confirm with the ID clinic that antibiotics are indicated - Will request urine culture data from the past year from [facility] Assessment & Plan (04/10/2023 12:32 PM ADVANCED PRACTICE REGISTERED NURSE): >>ASSESSMENT AND PLAN FOR RECURRENT UTI WRITTEN ON 03/11/2023 9:19 AM BY TERRELL VELÁZQUEZ NP - H/o recurrent UTIs. Reported dysuria, urinary urgency and frequency for the past several months. He denied any constitutional symptoms. PVR neg; did not require Shannon. Suspect he is having symptoms from UTI and/or bladder dysfunction/LUTS related to prostate, perhaps a combination is most likely. However, latest urine culture from 02/04 grew Pseudomonas aeruginosa (mucoid morphotypes) - mari susceptible and Enterococcus faecium susceptible to linezolid and vancomycin. CT with Nonobstructing 5 mm left renal calculus, mild left hydronephrosis which could be related to stricturing at the. Left UPJ versus intermittent obstruction by the stone. Mild circumferential bladder wall thickening. Urology consulted; plan stone removal after UTI treated. Plan for OR Sunday 02/18 -> Cystoscopy, left ureteroscopy laser lithotripsy stent placement - ID followed, dc'ed on PO Cipro and linezolid x7 days total. ID suspected symptoms of dysuria are related to something non-infectious like irritation from the radiation therapy - Currently without symptoms - UA SEWAGE PLANT SUPERVISOR, ordered by outpatient surgery office 03/06: spec gravity 1.024, urine nitriate negative, leuk esterase trace, RBC 11-20, WBC 21-50, no bacteria - ID c/s per Dr Bernard, appreciate recs - No abx per ID Assessment & Plan (02/12/2023 12:26 PM ADVANCED PRACTICE REGISTERED NURSE): H/o recurrent UTIs. Reports dysuria, urinary urgency and frequency for the past several months. He denies any constitutional symptoms. Suspect he is having symptoms from UTI and/or bladder dysfunction/LUTS related to prostate, perhaps a combination is most likely. However, latest urine culture from 02/04 grew Pseudomonas aeruginosa (mucoid morphotypes) - mari susceptible and Enterococcus faecium susceptible to linezolid and vancomycin. - CT with Nonobstructing 5 mm left renal calculus, mild left hydronephrosis which could be related to stricturing at the left UPJ versus intermittent obstruction by the stone. Mild circumferential bladder wall thickening - Urology following, considering stone removal after UTI treated. Plan for OR Sunday 02/18 - ID team 1 following, continue Cefepime and Linezolid. Will d/c on PO Cipro and linezolid - monitor PVR Nephrolithiasis 02/08/2023 PVD (peripheral vascular disease) 12/10/2022 Assessment & Plan (03/11/2023 9:20 AM ADVANCED PRACTICE REGISTERED NURSE): - prior complex PAD history with multiple revasc procedures and L AKA, with RLE chronic CLTI - now s/p R LE angio and R FEA on 03/07 - OU, liberated to floor status POD #1 - q4h vascular checks - OOB, PT/OT - ADAT - Post-op labs - Plavix load 75mg, will dc home on low dose Xarelto and Plavix - Will plan for 90 days of Plavix at DC - Pt initially hesitant to take both Plavix and Xarelto at DC given hx of hematuria; after discussion pt in agreement to take Plavix and low dose xarelto and will reach out to office if he develops recurrence of hematuria Assessment & Plan (02/12/2023 1:15 PM ADVANCED PRACTICE REGISTERED NURSE): H/o PVD with multiple lower extremity endo and open revascularizations and ultimately went left BKA in 2021. He was scheduled to have a right leg revascularization procedure but was held because of concern of UTI and was admitted for management. 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 His right groin wound is healing very nicely with no erythema, swelling, warmth, open wounds, or drainage. The right groin is without pain or tenderness - Transitioned patient to suppression with doxycyline 100 mg PO BID and Ciprofloxacin 500 mg PO Q12H indefinitely given retained hardware. - We reviewed recent labs -Repeat EKG today (Qtc <500) - Discussed the rationale for treatment, risk of recurrent infections, signs/symptoms of recurrent infection, and to contact ID clinic with any questions or concerns between now and his next visit RTC in 6 months Assessment & Plan (02/04/2024 11:49 AM ADVANCED PRACTICE REGISTERED NURSE): - Cultures +MSSA and PSAR - Completed Cefepime 2 g IV Q12H (04/30 - 06/11), Metronidazole 500 mg PO Q8H (04/30 - 06/11), and Daptomycin 8mg/kg mg IV Q24H (04/30 - 06/11) and tolerated it well with no adverse effects - He denies fever, chills, night sweats, N/V, and diarrhea. His right groin wound is healing very nicely with no erythema, swelling, warmth, open wounds, or drainage. The right groin is without pain or tenderness - Transitioned patient at previous appointment to suppression with doxycyline 100 mg PO BID and Ciprofloxacin 500 mg PO Q12H indefinitely given retained hardware. - We reviewed recent labs -Repeat EKG at the next visit (previous Qtc 449) - Discussed the rationale for treatment, risk of recurrent infections, signs/symptoms of recurrent infection, and to contact ID clinic with any questions or concerns between now and his next visit RTC in 6 months Assessment & Plan (09/23/2023 1:42 PM CDT): - Cultures +MSSA and PSAR - Completed Cefepime 2 g IV Q12H (04/30 - 06/11), Metronidazole 500 mg PO Q8H (04/30 - 06/11), and Daptomycin 8mg/kg mg IV Q24H (04/30 - 06/11) and tolerated it well with no adverse effects - He denies fever, chills, night sweats, N/V, and diarrhea. His right groin wound is healing very nicely with no erythema, swelling, warmth, open wounds, or drainage. The right groin is without pain or tenderness - Transitioned patient at previous appointment to suppression with doxycyline 100 mg PO BID and Ciprofloxacin 500 mg PO Q12H indefinitely given retained hardware. - We will repeat labs today -Repeat EKG today (Qtc 449) -Encouraged patient and family to follow up with primary care to discuss depression. - Discussed the rationale for treatment, risk of recurrent infections, signs/symptoms of recurrent infection, and to contact ID clinic with any questions or concerns between now and his next visit RTC in 6 months Assessment & Plan (06/12/2023 3:45 PM CDT): - Cultures +MSSA and PSAR - Completes Cefepime 2 g IV Q12H (04/30 - 06/11), Metronidazole 500 mg PO Q8H (04/30 - 06/11), and Daptomycin 8mg/kg mg IV Q24H (04/30 - 06/11) therapy today and tolerated it well with no adverse effects - He denies fever, chills, night sweats, N/V, and diarrhea. His right groin wound is healing very nicely with no erythema, swelling, warmth, open wounds, or drainage. The right groin is without pain or tenderness - We are pulling PICC line in clinic and now transitioning patient to suppression with doxycyline 100 mg PO BID and Ciprofloxacin 500 mg PO Q12H indefinitely given retained hardware. Sending scripts to patient's pharmacy - Patient saw PRS 05/30 and had sutures removed, doing very well, and will f/u with them PRN - Discussed the rationale for treatment, risk of recurrent infections, signs/symptoms of recurrent infection, and to contact ID clinic with any questions or concerns between now and his next visit RTC in 3 months Assessment & Plan (08/21/2022 6:51 AM CDT): - ID following - Cultures growing abundant Gram Negative Bacilli and few Gram Positive Cocci - UA culture with Klebsiella pneumoniae, will TB with ID. Assessment & Plan (08/20/2022 8:56 AM CDT): The patient is a 76 y.o. male with PMH of CAD s/p CABG, CVA, hearing loss, prostate cancer, afib, AAA and severe LE PVD with prior bilateral iliac stents and SFA popliteal arteries, L external iliac and R SFA angioplasty 12/2020, L proximal SFA to distal posterior tibial PTFE bypass graft 02/2021. Patient ultimately underwent L AKA when he presented with CLI. After use of shrinkers left proximal thigh subcutaneous graft eroded through the skin and he was admitted for planned intervention. Afebrile on admission, labs with WBC 15. He was taken to OR 08/16 for explantation of L PTFE graft and ligation of SFA with rotational flap. Per op note the graft remnant was freely floating and not incorporated, proximal anastomosis to SFA was friable and completely dehisced with disruption of [place] superficial femoral artery and stent graft extending across the segment. Graft and stent were removed entirely. Proximal SFA was debrided back to healthy tissue and primary repair of SFA stump was performed. Previously placed bovine pericardium on common femoral artery and profunda appeared well incorporated and intact. OR cultures growing Enterobacter, Pseudomonas, Shewanella and Finegoldia. He was started on vancomycin, flagyl and cefepime. Blood cultures NGTD. Since no evidence of bacteremia and removal of all infected graft will plan to complete 2 weeks of IV antibiotics from graft excision. Recommendations: - ok to stop vancomycin - continue cefepime 2g q12h and PO flagyl 500 mg q8h to complete 2 weeks (start date 08/16) - monitor weekly CBC and CMP - ID will sign off, please see summary of treatment recommendations Severe protein-calorie malnutrition 08/17/2022 Assessment & Plan (08/18/2022 8:51 AM CDT): - Nutrition consult - Monitor labs and I&Os - Holding lasix until oral intake improves Complicated open wound of left thigh 08/16/2022 Assessment & Plan (08/21/2022 6:48 AM CDT): Patient with erosion of left proximal thigh graft after use of shrinkers s/p left AKA. - s/p OR 08/16 for explantation of Left PTFE graft, ligation of L SFA by vascular and Rectus femoris rotational flap by plastic surgery. - Graft Cx 08/16: GPCs - ID consulted 08/17, appreciate recs: Cefe, flagyl x2 weeks (end 08/30) - Activity: bedrest/beach-chair 48hr (from 08/16-08/18 afternoon) - Anticoagulation: hold AC 48hr - Drains: JPx1(per PRS) - Dressing: airstrip x2 (donor, groin) change daily starting POD3 08/19 per PRS. Left medial thigh wound from eroded graft is WTD dressing per vascular. - Neurovascular check q4 hrs and PRN - Picc line ordered Sacral ulcer 08/16/2022 Assessment & Plan (08/21/2022 6:48 AM CDT): Developed signficant sacral ulcer while recovering from Left AKA. Has been followed by Dr. Tate for this and thigh wound in the [facility] clinic. It has been healing. Last recommendations: Santyl to sacral ulceration and dress allevyn and change once per day and as needed if soiled Continue to off load sacral area and backside Turn q2 hrs Continue outpatient follow up in wound clinic. - [facility] recommend continuing dressing care instructions per Dr. Tate's outpatient clinic note PAD (peripheral artery disease) 08/16/2022 Overview (04/30/2023): - OSH bilateral EIA and SFA/PoP artery segment stents c/b progression of dx on L 01/19/21: lL MANAGER OF PROCUREMENT endarterectomy, left EI balloon angioplasty and profundoplasty with right-sided SFA-pop artery drug coated balloon angioplasty on 01/19/2021. 03/02/21: left proximal SFA to left distal posterior tibial artery 6mm PTFE bypass 11/09/21: Right SFA and TP trunk drug coated balloon angioplasty on 11/09/2021. [id number] Interval Left AKA at OSH 08/16/22: left groin redo exploration with explantation of the left femoral distal infected PTFE graft remnant with debridement of the left superficial femoral artery and ligation of the proximal left SFA stump with muscle flap by PRS. 03/07/23: Right iliofemoral endart with SFA stent, DCB angioplasty, and TP Trunk DCB angioplasty Assessment & Plan (05/02/2023 7:57 AM ADVANCED PRACTICE REGISTERED NURSE): - Continue statin + Plavix - Q4 hr NV exam UTI (urinary tract infection) 11/12/2021 Assessment & Plan (03/11/2023 2:55 PM ADVANCED PRACTICE REGISTERED NURSE): Porfirio Pabon is a 77 year old man with PMH of ischemic heart disease s/p CABG 4v (08/2004), CVA, AAA, PVD with claudication, Left AKA and removal of infected graft atrial fibrillation on Eliquis, prostate cancer s/p radiation (2020), bladder cancer s/p TURBT, and recurrent UTIs who was admitted 03/07 for Right leg revascularization. ID consulted due to urine culture positive for MRSA. Recently admitted with dysuria and urinary urgency with frequency 02/08-02/12 with urine cultures positive for Pseudomonas aeruginosa and Enterococcus faecium treated with 7 days of PO linezolid and ciprofloxacin. At that time, noted to have nonobstructing Left sided nephrolithiasis and subsequently underwent laser lithotripsy and Left ureteral stent placement on 02/18 (Shannon and stent removed 02/21). He had a pre-procedure UA with reflex culture done at OSH ([facility]) 03/06 which showed trace leukocyte esterase and 21-50 WBCs; urine cx +MRSA (S: vancomycin, gentamicin, nitrofurantoin, TMP-SMX; R: tetracycline, cipro/levo). He was directly admitted and taken to OR 03/07 for RLE revascularization. He notes that he has been completely asymptomatic and does not feel like he has a UTI. Recommendations - Patient technically has asymptomatic bacteriuria, however, given that this patient's S. Aureus bacteriuria is most likely secondary to recent urologic procedures, favor treating this episode. - Please obtain two sets of blood cultures in setting of S. Aureus bacteriuria (to rule out hematogenous source as S. Aureus is historically considered a rare/unusual cause of UTI) - Start PO trimethoprim-sulfamethoxazole 1 DS BID for 7 days for S. Aureus bacteriuria/complicated UTI - ID will sign off. We will arrange ID clinic follow-up as the patient and his family requested ID clinic appointment to establish care for management of recurrent UTI to minimize future antibiotic exposures. Assessment & Plan (11/12/2021 9:49 AM CDT): - Discharge with Macrobid 100 mg BID x 7days Bradycardia 11/09/2021 Assessment & Plan (11/09/2021 6:26 AM CDT): Noted to have asymptomatic bradycardia in pre-op on 11/08, case was cancelled due to bradycardia plus emergent cases. - Cardiology consulted, no further work up indicated. Hold BB if needed. - Coreg currently held. Continuing telemetry. Remains asymptomatic. History of DVT (deep vein thrombosis) 11/08/2021 Assessment & Plan (08/16/2022 1:17 PM CDT): BLE DVT ~2003; Chronic non-occlusive DVT of the RLE noted on BLE Dopplers from 02/28/21) - Eliquis held Assessment & Plan (11/10/2021 9:57 AM CDT): BLE DVT ~2003; Chronic non-occlusive DVT of the RLE noted on BLE Dopplers from 02/28/21) -Holding home Eliquis. -Continue Hep gtt Hypertension 11/08/2021 Assessment & Plan (02/11/2023 4:50 PM ADVANCED PRACTICE REGISTERED NURSE): - continue home Lasix 20 mg daily Monitor K, replete if needed Assessment & Plan (08/17/2022 8:18 AM CDT): Lasix 20mg daily at home. Currently holding. Resume as able -VS q4 hrs and PRN Assessment & Plan (11/09/2021 6:25 AM CDT): Home medications include Lasix and Coreg -VS Q4 hrs and PRN - Holding Coreg due to bradycardia. History of CVA (cerebrovascular accident) 2021 Assessment & Plan (02/09/2023 9:26 AM ADVANCED PRACTICE REGISTERED NURSE): - continue home aspirin and statin Assessment & Plan (08/18/2022 11:52 AM CDT): On outpatient aspirin and statin - was on Plavix as an outpatient but reports it being discontinued in the past. - PT/OT Assessment & Plan (11/10/2021 10:08 AM CDT): - Plavix resumed, continue statin - PT/OT Atrial fibrillation 11/08/2021 Assessment & Plan (05/09/2023 8:26 AM ADVANCED PRACTICE REGISTERED NURSE): -Holding home low dose rivaroxaban, discussing with Dr Bernard when to resume post-op Assessment & Plan (03/07/2023 1:26 PM ADVANCED PRACTICE REGISTERED NURSE): - on ASA, rivaroxaban at home Assessment & Plan (02/12/2023 1:15 PM ADVANCED PRACTICE REGISTERED NURSE): History of paroxysmal atrial fibrillation. On Xarelto 2.5 mg b.i.d. Not on full- dose anticoagulation. - continue xarelto 2.5mg bid (PAD dosing). Ok to continue per urology and vasc Assessment & Plan (08/17/2022 8:00 AM CDT): Had bradycardia last admission at [facility] 11/2021. Not on home betablocker. - On outpatient Eliquis, holding for now. - Continue statin. Assessment & Plan (11/08/2021 6:29 AM CDT): -Continue home Coreg -Holding home Eliquis. Continue Hep gtt Arterial occlusion, lower extremity 11/07/2021 Overview (11/07/2021): Added automatically from request for surgery [id number] Assessment & Plan (11/10/2021 10:06 AM CDT): - s/p LEFT proximal SFA to distal PT PTFE bypass on 03/02/21. Presenting with 4 day history of worsening claudication and coolness of left foot. -CTA: LEFT proximal superficial femoral to posterior tibial artery bypass graft which is completely occluded. vessel runoff to the left ankle via the posterior tibial artery. Progressive RIGHT superficial femoral and popliteal artery in-stent stenosis with 1 vessel runoff to the right ankle via the posterior tibial artery. Multifocal right anterior tibial artery occlusion and diminutive flow within the peroneal artery. -s/p OR yesterday for L femoral cutdown, LLE thrombectomy, L angioplasty, L femoral artery and L SFA stenting -resume plavix, continue statin -VS q4 hrs and PRN -advance heparin to weight based dosing today -DC shannon, advance diet -bedrest until 1200 today, then OOB/PT/OT Prostate cancer 02/28/2021 Assessment & Plan (03/06/2021 7:17 AM [employer] REGISTERED NURSE): - Discussing with home Radiation Oncologist timeline of intervention - Dr De Leon - ([phone]) contacted and requested repeat prostate MRI to better identify possible extracapsular spread. - Discussing with surgery team if starting hormone therapy a possibility around the time of surgery or if it needs to be delayed - Dr De Leon coordinating outpatient radiation to be initiated after surgery as an outpatient - MRI pelvis/prostate completed Left toe non-healing wound 02/27/2021 Assessment & Plan (02/28/2021 9:38 AM ADVANCED PRACTICE REGISTERED NURSE): - Reports L great toe nail being removed about a week ago by local doctor - Betadine paint to L great toe - Elevate LLE Peripheral vascular disease 01/20/2021 Assessment & Plan (08/18/2022 8:41 AM CDT): Hx of PVD with multiple lower extremity endo and open revascularizations. Ultimately underwent a left AKA at an OSH last year after being lost to follow up and presenting with CLI. After use of shrinkers left proximal thigh subcutaneous graft has eroded through the skin and has been exposed at the skin surface for the last several weeks. He is being admitted for wound management. The right side is currently asymptomatic. - Held Eliquis prior to OR. - Continue aspirin and statin management. - PRS requesting to hold AC x48 hours post-flap Assessment & Plan (03/06/2021 7:17 AM ADVANCED PRACTICE REGISTERED NURSE): - CTAIF with left common femoral artery endarterectomy and profundaplasty with occlusion of the proximal superficial femoral artery and remaining superficial artery/popliteal stent - Heparin gtt initiated on arrival - PRS consulted for evaluation for L groin flap coverage, did not require in OR - OR for re-do femoral to PT bypass with PTFE - OOB, PT/OT evaluation - Continue aspirin, statin - Q4NV checks - Therapeutic Lovenox post-op -> Eliquis Assessment & Plan (02/27/2021 8:58 PM ADVANCED PRACTICE REGISTERED NURSE): - Hep ggt - Rpt CTAIF CAD (coronary artery disease) 01/19/2021 Assessment & Plan (03/07/2023 4:56 PM ADVANCED PRACTICE REGISTERED NURSE): - Will dc on Plavix and Xarelto, no ASA - Tele Assessment & Plan (02/11/2023 4:50 PM ADVANCED PRACTICE REGISTERED NURSE): S/p CABG x4 (in 2004). Not on beta-monet due to bradycardia. - continue aspirin, statin Assessment & Plan (08/17/2022 9:01 AM CDT): - S/p CABG x4 (in 2004) - Coreg stopped last admission due to bradycardia as below. Assessment & Plan (11/10/2021 9:59 AM CDT): s/p CABG x4 in 2004) -Continue home Coreg and statin. Plavix resumed. -ASA started while holding Plavix Assessment & Plan (01/19/2021 1:52 PM CDT): - Significant cardiac history including history of CABG 4 on 08/31/04 (CABG 4-DUQUE to LAD, SVG to diagonal, SVG to OM, SVG to RPDA) - Plan to continue dual antiplatelet therapy with aspirin and clopidogrel and statin therapy Tobacco abuse 01/19/2021 Assessment & Plan (05/02/2023 7:58 AM ADVANCED PRACTICE REGISTERED NURSE): - Encourage cessation - NRT if indicated Assessment & Plan (03/07/2023 1:27 PM ADVANCED PRACTICE REGISTERED NURSE): - Encourage cessation, offer NRT Assessment & Plan (02/28/2021 9:50 AM ADVANCED PRACTICE REGISTERED NURSE): - Current daily smoker, encourage cessation - NRT if requested Assessment & Plan (01/19/2021 12:53 PM CDT): - Currently a heavy smoker - NRT if indicated inpatient - Encourage cessation Claudication 12/14/2020 Overview (12/14/2020): Added automatically from request for surgery [id number] Assessment & Plan (01/21/2021 9:55 AM CDT): - OR 01/19 for left femoral endarterectomy - PT/OT today 01/21 - Continue aspirin + Plavix Abdominal aortic aneurysm (AAA) ([facility]) 2013 Overview (06/29/2016): Abdominal aortic aneurysm Assessment & Plan (05/02/2023 7:57 AM ADVANCED PRACTICE REGISTERED NURSE): - Infrarenal abdominal aortic aneurysm measuring up to 3.4 cm - PCP/vascular follow up for routine monitoring Assessment & Plan (08/16/2022 1:08 PM CDT): - Not at threshold for repair. Continue outpatient monitoring. Assessment & Plan (03/01/2021 8:44 AM [employer]VANCED PRACTICE REGISTERED NURSE): - Small in size and unchanged based on recent angiogram and CTA (3.9 x 3.1 cm) - Manage non-operatively, continue to follow with vascular surgery as an outpatient - SBP goal 100-160 Assessment & Plan (01/19/2021 12:49 PM CDT): - CT 12/2020 with a 3.9 x 3.1 cm with eccentric plaque and peripheral calcific atherosclerosis suggesting small aneurysm, unchanged from prior. No significant stenosis or narrowing - Continue aspirin and statin daily - Continue to follow with Dr Bernard as an outpatient to monitor AAA Current Treatment and Therapy Plans No current plan information found. Past Treatment and Therapy Plans No past plan information found. Lifetime Dose Tracking * Chemical Lifetime Dose Automatic Entry Manual Entr y Fluoro Time 19.807 minutes 19.807 minutes 0 minutes Air kerma at the reference point (Ka,r) 155.7 mGy 9 8.7 mGy 57 mGy DLP 5,717 mGycm 5,717 mGycm 0 mGycm Resolved Problems Problem Noted Date Diagnosed Date Resolved Date PVD (peripheral vascular disease) 11/07/2021 11/07/2021 Atrial fibrillation ([facility]) [I48.91] 08/30/2016 01/19/2021 Acute venous embolism and th rombosis of deep vessels of proximal lower extremity ([facility]) [I82.4Y9] 08/30/2016 01/19/2021
--- OUTSIDE RECORDS SUMMARY | 2024-06-18 12:50 | XMS_ITS | Clinical Summary ---
Author Organization [facility] [place] [address] Address [address] [place] [address] Care Team Providers Care Antique Refinisher Name Role Phone Som Kenny MD Primary Care Provider Kamron Bernard MD Unavailable [phone] Jasen Whalen MD Unavailable [phone] Allergies Active Allergy Reactions Criticality Noted Date Comments Bacitracin Rash Medium Neomycin Rash Medium Cirlpcom-Bsksomivry-Zxmzsswau Rash High 2022 Polymyxin B Rash High 04/20/2022 Medications acetaminophen 500 mg capsuleIndications: Pain Take 2 capsules (1,000 mg total) by mouth every 6 (six) hours as needed for pain 30 tablet 01/23/20 21 Active furosemide (LASIX) 20 mg tabletIndications:E regina Take 1 tablet (20 mg total) by mouth every morning 90 tablet 3 06/17/19 24 Active mirtazapine (REMERON) 30 mg tabletIndications:m ajor depressive disorder Take 1 tablet by mouth nightly at bedtime. 06/12/19 24 Active tamsulosin (FLOMAX) 0.4 mg extended release capsuleIndications: benign prostatic hyperplasia with lower urinary tract sx 1 capsule Active potassium chloride (KAYCIEL) solution 20 mEq/15 mLIndications:hypok alemia prevention TAKE 15ML BY MOUTH TWICE DAILY 09/21/19 24 Active aspirin 81 mg enteric coated tabletIndications:p revention of thrombosis Take 1 tablet (81 mg total) by mouth daily 10/25/19 24 025 Active Xarelto 2.5 mg tabletIndications:P eripheral Arterial Thromboembolism Prevention TAKE 1 TABLET TWICE A DAY 180 tablet 2 12/26/19 24 Active ciprofloxacin (CIPRO) 500 mg tabletIndications:U rinary Tract/Genitourinary Infection Take 1 tablet (500 mg total) by mouth 2 (two) times a day 180 tablet 3 01/29/20 24 025 Active doxycycline (VIBRAMYCIN) 100 mg capsuleIndications: Chronic Suppression Take 1 tablet/capsule (100 mg total) by mouth every 12 (twelve) hours 180 tablet/capsu le 3 01/29/20 24 025 Active rosuvastatin (CRESTOR) 40 mg tabletIndications:h yperlipidemia TAKE 1 TABLET DAILY 90 tablet 3 02/11/20 24 Active sodium chloride 0.9% injectionIndication s:line care Infuse 10 mL into a venous catheter as needed for line care. Indications: line care Active heparin flush,porcine,-0.9N aCl 100 unit/mL kitIndications:Main tain Patency of Indwelling Vascular Catheter Infuse 5 mL into a venous catheter as needed (line care). Indications: prevent clot from blocking an intravenous catheter Active Active Problems Problem Noted Date Diagnosed Date Electrolyte abnormality 05/02/2023 Assessment & Plan (05/09/2023 8:29 AM BOWL SANDER): - 03/05: Hypokalemia to 3.3, s/p PO replacement - 03/06: K 3.3, s/p replacement - Replete K as needed - Monitor BMP S/P flap graft 05/01/2023 Wound infection 05/01/2023 Wound infection following procedure 04/29/2023 Assessment & Plan (05/06/2023 2:38 PM BOWL SANDER): Mr. [place] is a 77 yro M w/ CAD, [...] follow. Assessment & Plan (05/09/2023 8:29 AM BOWL SANDER): - Presented to the office with R [...] 04/10/2023 Assessment & Plan (04/10/2023 12:38 PM BOWL SANDER): Underwent RLE revascularization 03/07/2023. On 03/26/2023, there [...] 03/11/2023 Assessment & Plan (03/11/2023 9:28 AM BOWL SANDER): - Notes some penile irritation which he commonly gets, feels like a yeast infection - Reports typically using antifungal cream for treatment; ordered with subjective improvement - No difficulty with voiding or pain - Encouraged to follow up with Urologist or PCP Recurrent UTI 02/08/2023 Assessment & Plan (02/04/2024 11:48 AM BOWL SANDER): -Patient presents to clinic with a possitive [...] concerns. Assessment & Plan (04/10/2023 12:48 PM BOWL SANDER): Clayton Salinasjohnnie is a 77 year old man with [...] culture data from the past year from [facility] Assessment & Plan (04/10/2023 12:32 PM BOWL SANDER): >>ASSESSMENT AND PLAN FOR RECURRENT UTI WRITTEN [...] therapy - Currently without symptoms - UA OUTDOOR RECREATION SPECIALIST, ordered by outpatient surgery office 03/06: spec gravity 1.024, urine nitriate negative, leuk esterase trace, RBC 11-20, WBC 21-50, no bacteria - ID c/s per Dr Bernard, shawn recs - No abx per ID Assessment & Plan (02/12/2023 12:26 PM BOWL SANDER): H/o recurrent UTIs. Reports dysuria, urinary urgency and frequency for the past several months. He denies any constitutional symptoms. Suspect he is having symptoms from UTI and/or bladder dysfunction/LUTS related to prostate, perhaps a combination is most likely. However, latest urine culture from 02/04 grew Pseudomonas aeruginosa (mucoid morphotypes) - amri susceptible and Enterococcus faecium susceptible to linezolid [...] 12/10/2022 Assessment & Plan (03/11/2023 9:20 AM BOWL SANDER): - prior complex PAD history with multiple [...] hematuria Assessment & Plan (02/12/2023 1:15 PM BOWL SANDER): H/o PVD with multiple lower extremity endo [...] 08/17/2022 Assessment & Plan (04/28/2024 9:36 AM BOWL SANDER): - Cultures +MSSA and PSAR - Completed [...] months Assessment & Plan (02/04/2024 11:49 AM BOWL SANDER): - Cultures +MSSA and PSAR - Completed [...] friable and completely dehisced with disruption of kasaan superficial femoral artery and stent graft extending [...] progression of dx on L 01/19/21: lL DATA INPUT CLERK endarterectomy, left EI balloon angioplasty and profundoplasty with right-sided SFA-pop artery drug coated balloon angioplasty on 01/19/2021. 03/02/21: left proximal SFA to left distal posterior tibial artery 6mm PTFE bypass 11/09/21: Right SFA and TP trunk drug coated balloon angioplasty on 11/09/2021. [id number] Interval Left AKA at OSH 08/16/22: left groin redo exploration with explantation of the left femoral distal infected PTFE graft remnant with debridement of the left superficial femoral artery and ligation of the proximal left SFA stump with muscle flap by PRS. 03/07/23: Right iliofemoral endart with SFA stent, DCB angioplasty, and TP Trunk DCB angioplasty Assessment & Plan (05/02/2023 7:57 AM BOWL SANDER): - Continue statin + Plavix - Q4 hr NV exam UTI (urinary tract infection) 11/12/2021 Assessment & Plan (03/11/2023 2:55 PM BOWL SANDER): Clayton [place] is a 77 year old man with [...] UA with reflex culture done at OSH ([facility]) 03/06 which showed trace leukocyte esterase and [...] 11/08/2021 Assessment & Plan (02/11/2023 4:50 PM BOWL SANDER): - continue home Lasix 20 mg daily [...] 2021 Assessment & Plan (02/09/2023 9:26 AM BOWL SANDER): - continue home aspirin and statin Assessment & Plan (08/18/2022 11:52 AM CDT): On outpatient aspirin and statin - was on Plavix as an outpatient but reports it being discontinued in the past. - PT/OT Assessment & Plan (11/10/2021 10:08 AM CDT): - Plavix resumed, continue statin - PT/OT Atrial fibrillation 11/08/2021 Assessment & Plan (05/09/2023 8:26 AM BOWL SANDER): -Holding home low dose rivaroxaban, discussing with Dr Bernard when to resume post-op Assessment & Plan (03/07/2023 1:26 PM BOWL SANDER): - on ASA, rivaroxaban at home Assessment & Plan (02/12/2023 1:15 PM BOWL SANDER): History of paroxysmal atrial fibrillation. On Xarelto 2.5 mg b.i.d. Not on full- dose anticoagulation. - continue xarelto 2.5mg bid (PAD dosing). Ok to continue per urology and vasc Assessment & Plan (08/17/2022 8:00 AM CDT): Had bradycardia last admission at [facility] 11/2021. Not on home betablocker. - On outpatient Eliquis, holding for now. - Continue statin. Assessment & Plan (11/08/2021 6:29 AM CDT): -Continue home Coreg -Holding home Eliquis. Continue Hep gtt Arterial occlusion, lower extremity 11/07/2021 Overview (11/07/2021): Added automatically from request for surgery [id number] Assessment & Plan (11/10/2021 10:06 AM CDT): [...] 02/28/2021 Assessment & Plan (03/06/2021 7:17 AM BOWL SANDER): - Discussing with home Radiation Oncologist timeline of intervention - Dr De Leon - ([phone]) contacted and requested repeat prostate MRI to [...] 02/27/2021 Assessment & Plan (02/28/2021 9:38 AM BOWL SANDER): - Reports L great toe nail being [...] post-flap Assessment & Plan (03/06/2021 7:17 AM BOWL SANDER): - CTAIF with left common femoral artery [...] Eliquis Assessment & Plan (02/27/2021 8:58 PM BOWL SANDER): - Hep ggt - Rpt CTAIF CAD (coronary artery disease) 01/19/2021 Assessment & Plan (03/07/2023 4:56 PM BOWL SANDER): - Will dc on Plavix and Xarelto, no ASA - Tele Assessment & Plan (02/11/2023 4:50 PM BOWL SANDER): S/p CABG x4 (in 2004). Not on [...] 01/19/2021 Assessment & Plan (05/02/2023 7:58 AM BOWL SANDER): - Encourage cessation - NRT if indicated Assessment & Plan (03/07/2023 1:27 PM BOWL SANDER): - Encourage cessation, offer NRT Assessment & Plan (02/28/2021 9:50 AM BOWL SANDER): - Current daily smoker, encourage cessation - NRT if requested Assessment & Plan (01/19/2021 12:53 PM CDT): - Currently a heavy smoker - NRT if indicated inpatient - Encourage cessation Claudication 12/14/2020 Overview (12/14/2020): Added automatically from request for surgery [id number] Assessment & Plan (01/21/2021 9:55 AM CDT): - OR 01/19 for left femoral endarterectomy - PT/OT today 01/21 - Continue aspirin + Plavix Abdominal aortic aneurysm (AAA) ([facility]) 2013 Overview (06/29/2016): Abdominal aortic aneurysm Assessment & Plan (05/02/2023 7:57 AM BOWL SANDER): - Infrarenal abdominal aortic aneurysm measuring up to 3.4 cm - PCP/vascular follow up for routine monitoring Assessment & Plan (08/16/2022 1:08 PM CDT): - Not at threshold for repair. Continue outpatient monitoring. Assessment & Plan (03/01/2021 8:44 AM BOWL SANDER): - Small in size and unchanged based [...] Bernard as an outpatient to monitor AAA Resolved Problems Problem Noted Date Diagnosed Date Resolved Date PVD (peripheral vascular disease) 11/07/2021 11/07/2021 Atrial fibrillation (CMS/HCC) [I48.91] 08/30/2016 01/19/2021 Acute venous embolism and th rombosis of deep vessels of proximal lower extremity (CMS/HCC) [I82.4Y9] 08/30/2016 01/19/2021 Encounters Date Type Department Care Team Description 04/27/2024 11:45 AM BOWL SANDER Office Visit [facility] Surgery [address] [place] [address] Office [address] [place] [phone] Kamron Bernard MD Atherosclerosis of kasaan artery of right lower extremity with intermittent claudication (Primary Dx); Infrarenal abdominal aortic aneurysm (AAA) without rupture; History of left above knee amputation (HCC); Urinary tract infection with hematuria, site unspecified; Vascular graft infection, subsequent encounter 04/27/2024 11:00 AM BOWL SANDER Ancillary Procedure [facility] Vascular Lab [address] [place] [address] Office [address] [place] [phone] Atherosclerosis of kasaan arteries of extremities with intermittent claudication, right leg 04/22/2024 3:40 PM BOWL SANDER Office Visit [facility] Infectious Diseases [address] [place] [address] [place] [phone] Adela Espinoza NP Encounter for long-term (current) use of antibiotics (Primary Dx); Vascular graft infection, subsequent encounter from Last 3 Months Immunizations Immunization Administration Dates Next Due Influenza, Quadrivalent, Hig h Dose, Preservative Free, Intrr 02/11/2023 Influenza, Unspecified 12/23/2020 Surgical History Surgery Date Site/Laterality Comments CORONARY ARTERY BYPASS GRAFT 03/25/2003 - 03/24/2004 4V BLADDER TUMOR EXCISION 03/25/2019 - 03/24/2020 COLONOSCOPY ANGIOPLASTY IR PICC LINE PLACEMENT > 5 YEARS 02/10/2024 N/A Medical History Medical History Date Comments Osteoarthritis Osteoarthritis Ischemic heart disease Ischemic heart disease Stroke (HCC) HL (hearing loss) BPH (benign prostatic hyperplasia) PAD (peripheral artery disease) AAA (abdominal aortic aneurysm) Claudication Atrial fibrillation (HCC) Pt den ies hx. Acute venous embolism and th rombosis of deep vessels of proximal lower extremity (CMS/HCC) [I82.4Y9] 08/30/2016 Cancer (HCC) Wound infection 04/29/2023 Family History Medical History Relation Name Comments Heart attack Mother Heart disease Mother Anesthesia problems Neg Hx Relation Name Status Comments Father Mother Social History Tobacco Use Types Packs/Day Years Used Date Smoking Tobacco: Every Day Cigarettes Smokeless Tobacco: Never Tobacco Cessation:Ready to Q uit: Not Asked; Counseling Given: Not Answered Comments:Counselled pt to contact PCP for assist with quitting, inst not tosmoke after midnight; Alcohol Use Standard Drinks/Week Comments No 0 (1 standard drink = 0.6 oz pur e alcohol) OASIS D0700: Social Isolation Answer Da te Recorded Frequency of experiencing loneliness or isolatio n Never 02/11/2024 OASIS A1250: Transportation Answer Date Recorded Lack of Transportation (Medical) No 06/18/2023 Lack of Transportation (Non-Medical) No 06/18/2023 Patient Unable or Declines to Respond No 06/18/2023 OASIS B1300: Health Literacy Answer Raymundo e Recorded Frequency of needing help to read materials from doctor or pharmacy Never 06/18/2023 AUDIT-C Answer Date Recorded Frequency of Alcohol Consumption Not on file 02/10/2024 Q2: How many drinks containi ng alcohol do you have on a typical day when you are drinking? Patient does not drink Q3: How often do you have si x or more drinks on one occasion? Never 02/10/2024 Hunger Vital Sign Answer Date Recorded Within the past 12 months, y ou worried that your food would run out before you got the money to buy more. Never true 11/22/19 23 Within the past 12 months, t he food you bought just didn't last and you didn't have money to get more. Never true 11/21/2022 Personal Safety Answer Date Recorded Have you ever been in or are you currently in a harmful physical or emotional relationship or is someone making you feel afraid or unsafe? Denies 02/10/2024 Sex and Gender Information Value Date Recorded Sex Assigned at Not on file Legal Sex Male 9:24 PM BOWL SANDER Gender Identity Male 01/10/2021 5:22 PM CDT Sexual Orientation Choose not to disclose 2020 5:22 PM CDT Obstetrics History Last Filed Vital Signs Vital Sign Reading Time Taken Comments Blood Pressure 157/56 04/27/2024 11:22 AM BOWL SANDER Pulse 82 04/27/2024 11:22 AM BOWL SANDER Temperature 37.1 C (98.7 F) 04/27/2024 11:22 AM BOWL SANDER Respiratory Rate 16 02/21/2024 2:45 PM BOWL SANDER Oxygen Saturation 99% 02/21/2024 2:45 PM BOWL SANDER Inhaled Oxygen Concentration - - Weight 59 kg (130 lb) 04/27/2024 11:22 AM BOWL SANDER Height 182 cm (5' 11.65 ) 04/27/2024 11:22 AM CS T Body Mass Index 17.8 04/27/2024 11:22 AM BOWL SANDER Plan of Treatment Health Maintenance Due Date Last Done Comments Depression Screening 1945 Hepatitis C Screening 1945 DTaP/Tdap/Td Vaccine (1 - Tdap) 1957 Hepatitis B Screening 1964 Zoster Vaccine (1 of 2) 1996 Well Visit 65+ 01/01/2012 Covid-19 Vaccine (2023-04 5 season) 2024 12/04/2023, 02/23/2023, 01/04/2022, Additional history exists Fall Risk Assessment 02/09/2025 02/10/2024 Pneumococcal vaccine 65+ Completed 01/01/2020, 04/2016 Influenza Vaccine Completed 12/04/2023, , 01/04/2022, Additional history exists Abdominal Aortic Aneurysm (A AA) Screen Completed 04/27/2024, 10/25/2023, 09/04/2023, Additional history exists Medical Devices Implanted Type Area Envelope Sealing Machine Operator Device Identifier Shelf Expiration Date Model / Serial / Lot [employer] [id number] [place] 6mm 90cm 70cm Removable Ring Stretch Thin Wall Graft - [id number] - [id number] Implanted:Qty: 1 on 03/02/2021 by Kamron Bernard MD at [facility] Graft Left: Leg [employer] [id number] 07/23/2024 [id number] / [id number] / Description:Left posterior t ibial [employer] [id number] Vascu-Guard 8x.8cm Peripheral Patch Vascular Bovine Pericardium - S00 - [id number] Implanted:Qty: 1 on 01/19/2021 by Kamron Bernard MD at [facility] Other - see comments Left: Femoral [employer]ir 09/22/2025 [id number] / 00 / [id number]- [id number] Description:Bovine Pericardi al Patch [employer] Patch Vascuguard 0.88cm [id number] - [id number] Implanted:Qty: 1 on 03/07/2023 by Kamron Bernard MD at [facility] Other - see comments Right: Femoral [employer] [id number] 10/09/2023 [id number] / / [id number]- [id number] Description:Vascular repair patch [employer] Everflex Entrust 6mm 150mm 120cm Self Expand Triaxial Low Profile - S00 - [id number] Implanted:Qty: 1 on 01/19/2021 by Kamron Bernard MD at [facility] Stent Right: Femoral [employer] [id number] 12/19/2023 [id number] / 00 / [id number] Description:Superficial Femo ral Artery [employer] Viabahn 8mm 7fr 5cm 120cm Delivery System Superficial Femoral [id number] - [id number] - [id number] Implanted:Qty: 1 on 11/09/2021 by Kamron Bernard MD at [facility] Stent Left: Femoral W[employer] [id number] 08/23/2024 [id number] / [id number] / Description:Left SFA [employer] Everflex Entrust 6mm 40mm 120cm Self Expand Triaxial Low Profile - [id number] Implanted:Qty: 1 on 03/07/2023 by Kamron Bernard MD at [facility] Stent Right: Femoral [employer] 06/27/2024 [id number] / / Biocomposites Stimulan Rapid Cure Kit Paste Rf Engineer 10cc 20cc Bone Void [id number] - [id number] Implanted:Qty: 1 on 04/30/2023 by Kamron Bernard MD at [facility] Right: Groin [employer] 11/22/2025 [id number] / / [id number] Description:Mixed with Tobra mycin and vancomycin Explanted Type Area Envelope Sealing Machine Operator Device Identifier Shelf Expiration Date Model / Serial / Lot [employer] Universa 6fr 28cm Firm Positioner Monofilament Tether Stent [id number] - [id number] Implanted:Qty: 1 on 02/18/2023 by Theodore Geller MD at [facility] Explanted:Qty: 1 on 02/21/2023 by Referral, Self [employer] [id number] 09/17/2025 [id number] / / [id number] Description:Pt removed stent and catheter at home. Harriet Palma CMA Procedures Procedure Name Priority Date/Time Associated Diagnosis Comments US ARTERIAL DUPLEX LOWER EXTREMITY RIGHT LIMITED Schedule Routine, Read Routine (OP Routine) 04/27/2024 11:59 AM BOWL SANDER Atherosclerosis of kasaan arteries of extremities with intermittent claudication, right leg US FREDERIC Schedule Routine, Read Routine (OP Routine) 04/27/2024 11:59 AM BOWL SANDER Atherosclerosis of kas[place] arteries of extremities with intermittent claudication, right leg CTA ABDOMINAL AORTA AND BILATERAL ILIOFEMORAL RUNOFF Schedule Routine, Read Routine (OP Routine) 07/03/2023 2:57 PM CDT Femoral artery stenosis, right Fluid collection at surgical site, initial encounter from Last 3 Months or Most Recently Relevant to Health Maintenance Results * US Arterial Duplex Lower Extremity Right Limited (04/27/2024 11:59 AM BOWL SANDER) LV EF % CONS SCIMAGE Anatomical Region Laterality Modality Vascular Right Ultrasound 04/27/2024 10:5 1 AM BOWL SANDER Narrative 04/27/2024 4:18 PM BOWL SANDER [facility] - Department of Vascular Surgery, Vascular Laboratory [address] [place] [phone] [place] Lower Extremity Arterial Duplex Report Patient Name: CLAYTON [place] : 1945 Study Date: 04/27/2024 10:51:49 AM Gender: M Tech: TT Location: [facility] Ref Provider: YENI CRUZ Quality: Adequate Order Provider: YENI CRUZ PROCEDURES: Arterial Report: Right Lower Extremity Arterial Duplex Exam. 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 MEASUREMENTS: Right Value Units Rt Distal External Iliac 126 cm/s Rt DATA INPUT CLERK Dst PSV 103 cm/s Rt Profunda Prx PSV 118 cm/s Rt Superficial Femoral Prx PSV 55 cm/s Rt Superficial Femoral Mid PSV 47 cm/s Rt Superficial Femoral Dst PSV 42 cm/s Rt Pop Prx PSV 31 cm/s Rt Post Tibial Mid PSV 46 cm/s Rt Ant Tibial Mid PSV 40 cm/s Rt Peroneal Mid PSV 46 cm/s Rt Proximal Stent 48 cm/s Rt Mid Stent 40 cm/s Rt Distal Stent 40 cm/s Right Value Units - FINDINGS: Performing Combustion Analyst: Jourdan Juan RVT. Right Distal External Iliac: The right distal external iliac waveform is multiphasic. Right Common Femoral: The right common femoral waveform is monophasic. Right Profunda: The right profunda waveform is multiphasic. Right Proximal Superficial Femoral Artery: The right proximal femoral artery waveform is multiphasic. Right Mid Superficial Femoral Artery: The right mid femoral artery waveform is monophasic. Right Distal Superficial Femoral Artery: The right distal femoral artery waveform is multiphasic. Right Popliteal: The right popliteal waveform is multiphasic. Stent 37cm/s. Right Posterior Tibial: The right posterior tibial waveform is multiphasic. Right Anterior Tibial: The right anterior tibial waveform is multiphasic. Right Peroneal: The right peroneal artery waveform is multiphasic. CONCLUSIONS: 1. Duplex imaging of the right lower extremity kasaan arteries reveals patent vessels with no flow limiting lesions identified. Flow velocities as measured above. See Ankle Brachial Index report. 2. Patent right SFA and Popliteal artery stent. HISTORY: History of prior intervention 03-07-23. PREVIOUS STUDIES: Previous study on 10-25-23. DISCLAIMER: The study images and the final report will be retained in the patient chart by the Vascular Laboratory for the legally required time period. This chart constitutes the legal record of any testing performed. ATTESTATION: I have reviewed and interpreted the pertinent images and measurements of this study. I attest to the conclusions in the final report that is provided above. Electronically Signed By: Kamron SNATORO OR 04/27/2024 4:16:58 PM BOWL SANDER Procedure Note Kamron Bernard MD - 04/27/2024 [facility] - Department of Vascular Surgery,Vascular Laboratory [address] [place] [id number] [place] Lower Extremity Arterial Duplex Report Patient Name: CLAYTON ADAMS : 1945 Study Date: 04/27/2024 10:51:49 AM Gender: M Tech: TT Location: [facility] Provider: YENI CRUZ Quality: Adequate Order Provider: YENI CRUZ PROCEDURES: Arterial Report: Right Lower Extremity Arterial Duplex Exam. INDICATIONS: I70.211 Atherosclerosis of [place] arteries of extremities withintermittent claudication, right leg. MEASUREMENTS: Right Value Units Rt Distal External Iliac 126 cm/s Rt DATA INPUT CLERK Dst PSV 103 cm/s Rt Profunda Prx PSV 118 cm/s Rt Superficial Femoral Prx PSV 55 cm/s Rt Superficial Femoral Mid PSV 47 cm/s Rt Superficial Femoral Dst PSV 42 cm/s Rt Pop Prx PSV 31 cm/s Rt Post Tibial Mid PSV 46 cm/s Rt Ant Tibial Mid PSV 40 cm/s Rt Peroneal Mid PSV 46 cm/s Rt Proximal Stent 48 cm/s Rt Mid Stent 40 cm/s Rt Distal Stent 40 cm/s Right Value Units - FINDINGS: Performing Combustion Analyst: Jourdan Juan RVT. Right Distal External Iliac: The right distal external iliac waveform is multiphasic. Right Common Femoral: The right common femoral waveform is monophasic. Right Profunda: The right profunda waveform is multiphasic. Right Proximal Superficial Femoral Artery: The right proximal femoral artery waveform is multiphasic. Right Mid Superficial Femoral Artery: The right mid femoral artery waveform is monophasic. Right Distal Superficial Femoral Artery: The right distal femoral artery waveform is multiphasic. Right Popliteal: The right popliteal waveform is multiphasic. Stent 37cm/s. Right Posterior Tibial: The right posterior tibial waveform is multiphasic. Right Anterior Tibial: The right anterior tibial waveform is multiphasic. Right Peroneal: The right peroneal artery waveform is multiphasic. CONCLUSIONS: 1. Duplex imaging of the right lower extremity [place] arteries revealspatent vessels with no flow limiting lesions identified. Flow velocities as measuredabove. See Ankle Brachial Index report. 2. Patent right SFA and Popliteal artery stent. HISTORY: History of prior intervention 03-07-23. PREVIOUS STUDIES: Previous study on 8-2-24. DISCLAIMER: The study images and the final report will be retained in the patientchart by the Vascular Laboratory for the legally required time period. This chartconstitutes the legal record of any testing performed. ATTESTATION: I have reviewed and interpreted the pertinent images and measurements ofthis study. I attest to the conclusions in the final report that is provided above. Electronically Signed By: Kamron SANTORO OR 04/27/2024 4:16:58 PM BOWL SANDER us Yeni Cruz INDUSTRIAL MAINTENANCE MILLWRIGHT IMG US PROCEDURES Final Result * US FREDERIC (04/27/2024 11:59 AM BOWL SANDER) LV EF % CONS SCIMAGE Anatomical Region Laterality Modality Vascular N/A Ultrasound 04/27/2024 10:4 7 AM BOWL SANDER Narrative 04/27/2024 4:18 PM BOWL SANDER [facility] - Department of Vascular Surgery, Vascular Laboratory [address] [place] [address] Lower Extremity Arterial Doppler Report Patient Name: CLAYTON ADAMS : 1945 Study Date: 04/27/2024 10:47:00 AM Gender: M Tech: Jourdan Juan Katy Location: [facility] Ref Provider: YENI CRUZ Quality: Adequate Order Provider: YENI CRUZ PROCEDURES: Arterial Report: Ankle - Brachial Index Doppler exam. 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 MEASUREMENTS: Right Value Units Left Value Units Rt Brachial Pressure 150 mmHg Lt Brachial Pressure 148 mmHg Rt OUTDOOR RECREATION SPECIALIST Pressure 135 mmHg Lt OUTDOOR RECREATION SPECIALIST Pressure AKA mmHg Rt DPA Pressure 125 mmHg Lt DPA Pressure AKA mmHg Rt 1st Digit Pressure 90 mmHg Lt 1st Digit Pressure AKA mmHg Rt PT FREDERIC Resting 0.9 Lt PT FREDERIC Resting AKA Rt AT FREDERIC Resting 0.83 Lt AT FREDERIC Resting AKA Rt Digit/Arm Index 0.6 Lt Digit/Arm Index AKA Right Value Units Left Value Units - FINDINGS: Performing Combustion Analyst: Jourdan Juan RVT. Right Posterior Tibial Artery Analysis: The posterior tibial waveform is multiphasic. Right Anterior Tibial Artery Analysis: The anterior tibial waveform is multiphasic. Right Digits: Normal right digit pressure and waveform. Comments: Status post left AKA amputation. CONCLUSIONS: 1. The above listed right Ankle/Brachial Index at rest is within normal limits (for reference, normal resting FREDERIC is 0.90 - 1.4; FREDERIC >1.4 due to non-compressible arteries is not diagnostic). 2. Right Digit/Arm Index is within normal limits (for reference, normal HANNAH is >0.6). HISTORY: History of prior intervention on 03-07-23. History of SFA and Popliteal stents. PREVIOUS STUDIES: Previous study on 10-25-23 Rt. .81, Lt. AKA. DISCLAIMER: The study images and the final report will be retained in the patient chart by the Vascular Laboratory for the legally required time period. This chart constitutes the legal record of any testing performed. ATTESTATION: I have reviewed and interpreted the pertinent images and measurements of this study. I attest to the conclusions in the final report that is provided above. Electronically Signed By: Kamron SANTORO OR 04/27/2024 4:17:13 PM BOWL SANDER Procedure Note Kamron Bernard MD - 04/27/2024 [facility] - Department of Vascular Surgery,Vascular Laboratory [address] [place] [id number] Lower Extremity Arterial Doppler Report Patient Name: CLAYTON ADAMS : 1945 Study Date: 04/27/2024 10:47:00 AM Gender: M Tech: Jourdan Juan RVT Location: [facility] Provider: YENI CRUZ Quality: Adequate Order Provider: YENI CRUZ PROCEDURES: Arterial Report: Ankle - Brachial Index Doppler exam. INDICATIONS: I70.211 Atherosclerosis of kasaan arteries of extremities withintermittent claudication, right leg. MEASUREMENTS: Right Value Units Left ValueUnits Rt Brachial Pressure 150 mmHg Lt Brachial Pressure 148mmHg Rt OUTDOOR RECREATION SPECIALIST Pressure 135 mmHg Lt OUTDOOR RECREATION SPECIALIST Pressure AKAmmHg Rt DPA Pressure 125 mmHg Lt DPA Pressure AKAmmHg Rt 1st Digit Pressure 90 mmHg Lt 1st Digit Pressure AKAmmHg Rt PT FREDERIC Resting 0.9 Lt PT FREDERIC Resting AKA Rt AT FREDERIC Resting 0.83 Lt AT FREDERIC Resting AKA Rt Digit/Arm Index 0.6 Lt Digit/Arm Index AKA Right Value Units Left ValueUnits - FINDINGS: Performing Combustion Analyst: Jourdan Juan RVT. Right Posterior Tibial Artery Analysis: The posterior tibial waveform is multiphasic. Right Anterior Tibial Artery Analysis: The anterior tibial waveform is multiphasic. Right Digits: Normal right digit pressure and waveform. Comments: Status post left AKA amputation. CONCLUSIONS: 1. The above listed right Ankle/Brachial Index at rest is within normallimits (for reference, normal resting FREDERIC is 0.90 - 1.4; FREDERIC >1.4 due tonon-compressible arteries is not diagnostic). 2. Right Digit/Arm Index is within normal limits (for reference, normalDAI is >0.6). HISTORY: History of prior intervention on 03-07-23. History of SFA and Popliteal stents. PREVIOUS STUDIES: Previous study on 10-25-23 Rt. .81, Lt. AKA. DISCLAIMER: The study images and the final report will be retained in the patientchart by the Vascular Laboratory for the legally required time period. This chartconstitutes the legal record of any testing performed. ATTESTATION: I have reviewed and interpreted the pertinent images and measurements ofthis study. I attest to the conclusions in the final report that is provided above. Electronically Signed By: Kamron STREETER 04/27/2024 4:17:13 PM BOWL SANDER us Yeni Cruz NP IMG US PROCEDURES Final Result * CTA Abdominal Aorta And Bilateral Iliofemoral Runoff (07/03/2023 2:57 PM CDT) Anatomical Region Laterality Modality Body Bilateral Computed Tomogra phy 07/03/2023 8:11 PM CDT Impressions 07/03/2023 8:11 PM CDT Findings as described above. Electronically signed by: Summer Blankenship 07/03/2023 8:11 PM CDT EXAMINATION: CTA ABDOMINAL AORTA AND BILATERAL ILIOFEMORAL RUNOFF HISTORY: The patient is a 77-year-old male who presents with right femoral artery stenosis. Comparison made with previous studies with the most recent being dated 04/29/2023. TECHNIQUE: Following the intravenous administration of 125 mL of Optiray 350 nonionic contrast, axial images were obtained through the abdomen, pelvis and both lower extremities. Multiplanar coronal and sagittal images were reformatted. 3-D volumetric analysis with VRT and MIP images were created on a dedicated workstation. FINDINGS: The abdominal aorta is atherosclerotic with no aortic dissection. The celiac axis, superior mesenteric artery, inferior mesenteric artery and renal arteries are patent as are the major branches. There is mild aneurysmal dilatation of the abdominal aorta at the level of the renal dm. Both common, internal and external iliac arteries are atheromatous with mild stenoses within them. There is marked calcification in both common and external iliac arteries. There is a stent in the right external iliac artery which is patent. There is a stent in the left external iliac artery which is patent. There is a fluid collection in the right groin, measuring 5.1 cm x 3.0 cm x 7 cm which probably represents a seroma at the surgical site. The right common femoral artery is patent. The right deep femoral artery is attenuated. The right superficial femoral artery is patent in entirety. There are 2 stents within it, which are patent. Considerable atherosclerotic calcification is seen in the distal right superficial femoral artery. The right popliteal artery is patent in entirety. The right anterior tibial artery is severely atherosclerotic and cisneros out in the upper 3rd of the right calf. The tibioperoneal trunk is patent. The posterior tibial artery is patent in its entirety with good runoff into the right foot as a plantar continuation. The right peroneal artery cisneros out at the level of the ankle joint. The left common femoral artery is patent. There is a severely attenuated left deep femoral artery. The left superficial femoral artery is occluded at its origin. The long stent in the proximal half of the left superficial femoral artery is occluded in entirety. The patient has had an above knee amputation on the left side. Nonvascular findings: Limited axial images through the lower thorax at lung window settings reveals no abnormality. Once again multiple hypodense lesions are seen throughout the liver parenchyma, likely representing simple hepatic cysts, of no significance. The spleen, adrenals, pancreas and kidneys are unremarkable. No intra-abdominal adenopathy or ascites seen. The gallbladder is normal in appearance with no opaque calculi within it. No dilated small bowel loops. There is fecal impaction seen. Images through the pelvis reveals mild sigmoid diverticulosis. Urinary bladder is unremarkable. Once again,1 note is made of a seroma in the right groin as described above. Procedure Note Brandon Lucas MD - 07/03/2023 EXAMINATION: CTA ABDOMINAL AORTA AND BILATERAL ILIOFEMORAL RUNOFF HISTORY: The patient is a 77-year-old male who presents with right femoral artery stenosis. Comparison made with previous studies with the most recent being dated 04/29/2023. TECHNIQUE: Following the intravenous administration of 125 mL of Optiray 350 nonionic contrast, axial images were obtained through the abdomen, pelvis and both lower extremities. Multiplanar coronal and sagittal images were reformatted. 3-D volumetric analysis with VRT and MIP images were created on a dedicated workstation. FINDINGS: The abdominal aorta is atherosclerotic with no aortic dissection. The celiac axis, superior mesenteric artery, inferior mesenteric artery and renal arteries are patent as are the major branches. There is mild aneurysmal dilatation of the abdominal aorta at the level of the renal dm. Both common, internal and external iliac arteries are atheromatous with mild stenoses within them. There is marked calcification in both common and external iliac arteries. There is a stent in the right external iliac artery which is patent. There is a stent in the left external iliac artery which is patent. There is a fluid collection in the right groin, measuring 5.1 cm x 3.0 cm x 7 cm which probably represents a seroma at the surgical site. The right common femoral artery is patent. The right deep femoral artery is attenuated. The right superficial femoral artery is patent in entirety. There are 2 stents within it, which are patent. Considerable atherosclerotic calcification is seen in the distal right superficial femoral artery. The right popliteal artery is patent in entirety. The right anterior tibial artery is severely atherosclerotic and cisneros out in the upper 3rd of the right calf. The tibioperoneal trunk is patent. The posterior tibial artery is patent in its entirety with good runoff into the right foot as a plantar continuation. The right peroneal artery cisneros out at the level of the ankle joint. The left common femoral artery is patent. There is a severely attenuated left deep femoral artery. The left superficial femoral artery is occluded at its origin. The long stent in the proximal half of the left superficial femoral artery is occluded in entirety. The patient has had an above knee amputation on the left side. Nonvascular findings: Limited axial images through the lower thorax at lung window settings reveals no abnormality. Once again multiple hypodense lesions are seen throughout the liver parenchyma, likely representing simple hepatic cysts, of no significance. The spleen, adrenals, pancreas and kidneys are unremarkable. No intra-abdominal adenopathy or ascites seen. The gallbladder is normal in appearance with no opaque calculi within it. No dilated small bowel loops. There is fecal impaction seen. Images through the pelvis reveals mild sigmoid diverticulosis. Urinary bladder is unremarkable. Once again,1 note is made of a seroma in the right groin as described above. IMPRESSION: Findings as described above. Electronically signed by: Brandon Lucas M.D. 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 K.pneumoniae urine 08/08/22 08/08/2022 08/08/2022 Insurance MEDICARE [facility]EFIT [facility]AN MEDICARE MEDICARE [facility]EFIT [facility]AN MEDICARE [facility]EFIT PLAN MEDICARE [facility]EFIT PLAN Advance Directives For more information, please contact: [phone] Documents on File Type Date Recorded Patient Rough Patcher Expl anation ADVANCE DIRECTIVE 03/07/2023 10:53 AM Peace ing Will * Full Code (Latest Code Status on File) Date Activated Date Inactivated Comments 02/10/2024 9:23 AM 02/11/2024 4:46 AM * Full Code Date Activated Date Inactivated Comments 05/01/2023 8:33 AM 05/09/2023 5:41 PM * Full Code Date Activated Date Inactivated Comments 05/01/2023 8:31 AM 05/01/2023 8:33 AM * Full Code Date Activated Date Inactivated Comments 03/07/2023 7:51 PM 03/11/2023 9:19 PM * Full Code Date Activated Date Inactivated Comments 02/09/2023 9:03 PM 02/12/2023 8:00 PM Care Teams Antique Refinisher Relationship Specialty Start Date End Date Som Kenny MD [address] [facility] [address] [place] [address] PCP - General 06/22/16 Kamron Bernard MD [address] [facility] [address] [place] [address] Consulting Physician Vascular Surgery 01/22/21 Jasen Whalen MD [address] [place] [address] Consulting Physician Urology 12/31/22
--- OUTSIDE RECORDS SUMMARY | 2024-06-18 12:50 | XMS_ITS | Clinical Summary ---
Author Organization [facility] Address [address] [facility] [place] [address] Care Team Providers Care Electronics Scale Tester Name Role Phone Som Kenny MD Primary Care Provider [phone] Source Comments [facility],non-owned Affiliates and Associated Physician Practices is amultiple site organization consisting of ambulatory clinics and hospital sitesin [place], [place], [place] and [place]. This disclosure is being madepursuant to the Care Everywhere program and may not contain all information available regarding this patient. Last updated 17.[facility] Allergies Active Allergy Reactions Criticality Noted Date Comments Aminoglycosides Rash High 04/20/2022 Rdcbjrgu-Rvrobqlcle-Iwctanyem Rash High 2022 Polymyxin B Rash High 04/20/2022 Medications * Be aware that medications may not be up to date on this document. Alwaysverify current medications with the patient. Medication Sig Dispensed Refills Start Date End Date Status rosuvastatin (Crestor) 40 MG tablet Take 1 (one) tablet by mouth once daily Active tamsulosin (Flomax) 0.4 MG capsule Take 1 (one) capsule by mouth once daily At the same time every day after a meal. Active Nutritional Supplements (Stanislav) PACK Take 1 packet by mouth 2 times daily Mix 1 packet of Stanislav w/ 8 oz water and drink, twice daily to promote wound healing. 04/24/2022 Active apixaban (Eliquis) 5 MG tablet Take 1 (one) tablet by mouth 2 times daily Active furosemide (Lasix) 20 MG tablet Take 1 (one) tablet by mouth once daily Active clopidogrel (plaVIX) 75 MG tablet Take 1 (one) tablet by mouth once daily Active oxyCODONE-acetaminop hen (Percocet) 5-325 MG tabletIndications:KVNG Mathisperipheral artery disease) Take 1 (one) tablet by mouth every 4 hours as needed 12 tablet 04/27/2022 Active gabapentin (Neurontin) 300 MG capsule Take 1 (one) capsule by mouth 3 times daily 04/27/2022 Active carvedilol (Coreg) 3.125 MG tablet Take 1 (one) tablet by mouth 2 times daily with morning and evening meal 04/27/2022 Active zinc oxide (Desitin) 40 % paste Apply to affected area as needed for Other 04/27/2022 Active polyethylene glycol 3350 (Miralax) 17 g packet Take 17 (seventeen) g by mouth once daily 04/28/2022 Active senna (Senokot Extra Strength) 17.2 MG Take 17.2 mg by mouth 2 times daily 04/27/2022 Active potassium chloride ER (Klor-Con M) 20 MEQ tabletIndications:fo r total of 80mEQ total Take 1 (one) tablet by mouth daily with breakfast Reasons: for total of 80mEQ total 04/28/2022 Active cyclobenzaprine (Flexeril) 5 MG tablet Take 1 (one) tablet by mouth 3 times daily 04/27/2022 Active Active Problems Problem Noted Date Diagnosed Date PAD (peripheral artery disease) 04/19/2022 Social History Tobacco Use Types Packs/Day Years Used Date Smoking Tobacco: Every Day Cigarettes Smokeless Tobacco: Never Tobacco Cessation:Ready to Q uit: No; Counseling Given: Yes Alcohol Use Standard Drinks/Week Comments Not Currently 0 (1 standard drink = 0.6 oz pur e alcohol) Overall Financial Resource Strain (CARDIA) Answe r Date Recorded How hard is it for you to pa y for the very basics like food, housing, medical care, and heating? Not hard at all 04/23/2022 [facility] - Occupational Stress Questionnaire Answer Date Recorded Do you feel stress - tense, restless, nervous, or anxious, or unable to sleep at night because your mind is troubled all the time - these days? Not at all 04/23/2022 Hunger Vital Sign Answer Date Recorded Within the past 12 months, y ou worried that your food would run out before you got the money to buy more. Never true 04/23/19 23 Within the past 12 months, t he food you bought just didn't last and you didn't have money to get more. Never true 04/23/2022 PRAPARE - Transportation Answer Date Re corded In the past 12 months, has l ack of transportation kept you from medical appointments or from getting medications? No 03/27 In the past 12 months, has l ack of transportation kept you from meetings, work, or from getting things needed for daily living? No 04/23/2022 Housing Stability Vital Sign Answer Raymundo e Recorded In the last 12 months, was t here a time when you were not able to pay the mortgage or rent on time? No 04/23/2022 In the last 12 months, how many places have you lived? 1 04/23/2022 In the last 12 months, was t here a time when you did not have a steady place to sleep or slept in a nursing home (including now)? No 04/23/2022 Sex and Gender Information Value Date Recorded Sex Assigned at Not on file Gender Identity Not on file Sexual Orientation Not on file Last Filed Vital Signs Vital Sign Reading Time Taken Comments Blood Pressure 104/64 04/27/2022 12:04 PM GREEN END WORKER Pulse 45 04/27/2022 12:04 PM GREEN END WORKER Temperature 36.9 C (98.4 F) 04/27/2022 12:04 PM GREEN END WORKER Respiratory Rate 18 04/27/2022 12:04 PM GREEN END WORKER Oxygen Saturation 97% 04/27/2022 12:04 PM GREEN END WORKER Inhaled Oxygen Concentration - - Weight 56.8 kg (125 lb 4.8 oz) 04/27/2022 10:00 AM GREEN END WORKER Height 182.9 cm (6') 04/27/2022 10:00 AM GREEN END WORKER Body Mass Index 16.99 04/27/2022 10:00 AM GREEN END WORKER Plan of Treatment Health Maintenance Due Date Last Done Comments MEDICARE AWV 12 MONTHS 1945 HEPATITIS C SCREENING 12/26/1964 DTAP/TDAP/TD VACCINES (1 - Tdap) 1965 PNEUMOCOCCAL VACCINE 50+ (1 of 2 - PCV) 1965 ZOSTER VACCINE (1 of 2) 1996 Respiratory Syncytial Virus (RSV) Vaccine Pt: or over 60 yrs (1 - 1-dose 75+ series) 2021 COVID-19 VACCINE ( - season) 2023 01/04/2022, 07/05/2021, 01/01/2021, Additional history exists INFLUENZA VACCINE (#1) 2023 2, 12/23/2020, 12/23/2014 DEPRESSION SCREENING 03/25/2024 HEPATITIS B VACCINE Aged Out No longe r eligible based on patient's age to complete this topic HIB VACCINE Aged Out No longer eligi ble based on patient's age to complete this topic HPV VACCINE Aged Out No longer eligi ble based on patient's age to complete this topic MENINGOCOCCAL (Group B) VACCINE SHARED DECISION-MAKING Aged Out No longer eligible based on patient's age to complete this topic MENINGOCOCCAL GROUPS A/C/Y/W VACCINE Aged Out No longer eligible based on patient's age to complete this topic Advance Directives * Full Code (Latest Code Status on File) Date Activated Date Inactivated Comments 04/20/2022 2:19 AM 04/27/2022 4:55 PM Care Teams Electronics Scale Tester Relationship Specialty Start Date End Date Som Kenny MD [address] [place] [address] PCP - General 01/13/20
--- OUTSIDE RECORDS SUMMARY | 2024-06-18 12:50 | XMS_ITS | Continuity of Care Document ---
Author Name [facility] Organization [facility] Care Team Providers Care Clinical Staff Pharmacist Name Role Phone [facility] Unavailable Unavailable Immunizations Combined list of available immunizations from the Department of Defense and Veterans Affairs facilities. Immunization Series Date Given Administered By Site Reaction Lot Number CVX Code Drug Product Director Status Comments Source INFLUENZA, UNSPECIFIED FORMULATION 2014 88 complet ed [facility] Encounters Combined list of: 1) Encounters from Department of Veterans Affairs facilities going backup to the last 18 months, not all VA inpatient encounters are included; 2) Encounters from the Department of Defense facilities going backup to 280 months. Location Location Details Encounter Type Encounter Number Reason For Visit Attending Provider ADM Date DC Date Status Disposition Source [facility] Outpatient Encounter [id number] 02/21 [facility]
--- OUTSIDE RECORDS SUMMARY | 2024-06-18 12:50 | XMS_ITS | Referral Summary ---
Author Organization [facility] [address] Address [address] [place] [address] Care Team Providers Care Glass Driller Name Role Phone Som Kenny MD Primary Care Provider Kamron Bernard MD Unavailable [phone] Jasen Whalen MD Unavailable [phone] Encounters Date Type Department Care Team Description 04/27/2024 11:45 AM DIGITAL CONTENT MARKETING MANAGER Office Visit [facility] Surgery [address] [place] [address] Medical Office Building [address] [place] [phone] Kamron Bernard MD Atherosclerosis of [place] artery of right lower extremity with intermittent claudication (Primary Dx); Infrarenal abdominal aortic aneurysm (AAA) without rupture; History of left above knee amputation (HCC); Urinary tract infection with hematuria, site unspecified; Vascular graft infection, subsequent encounter 04/27/2024 11:00 AM DIGITAL CONTENT MARKETING MANAGER Ancillary Procedure [facility] Vascular Lab [address] [place] [address] Medical Office Building [address] [place] [phone] Atherosclerosis of [place] arteries of extremities with intermittent claudication, right leg 04/22/2024 3:40 PM DIGITAL CONTENT MARKETING MANAGER Office Visit [facility] Infectious Diseases [address] [place] [address] [place] [phone] Adela Espinoza NP Encounter for long-term (current) use of antibiotics (Primary Dx); Vascular graft infection, subsequent encounter from Last 3 Months Allergies Active Allergy Reactions Criticality Noted Date Comments Bacitracin Rash Medium Neomycin Rash Medium Bvvryveq-Vdhypvijrz-Anyogevqu Rash High 2022 Polymyxin B Rash High [...] 05/02/2023 Assessment & Plan (05/09/2023 8:29 AM DIGITAL CONTENT MARKETING MANAGER): - 03/05: Hypokalemia to 3.3, s/p PO replacement - 03/06: K 3.3, s/p replacement - Replete K as needed - Monitor BMP S/P flap graft 05/01/2023 Wound infection 05/01/2023 Wound infection following procedure 04/29/2023 Assessment & Plan (05/06/2023 2:38 PM DIGITAL CONTENT MARKETING MANAGER): Mr. Adams is a 77 yro M [...] follow. Assessment & Plan (05/09/2023 8:29 AM DIGITAL CONTENT MARKETING MANAGER): - Presented to the office with R [...] 04/10/2023 Assessment & Plan (04/10/2023 12:38 PM DIGITAL CONTENT MARKETING MANAGER): Underwent RLE revascularization 03/07/2023. On 03/26/2023, there [...] 03/11/2023 Assessment & Plan (03/11/2023 9:28 AM DIGITAL CONTENT MARKETING MANAGER): - Notes some penile irritation which he commonly gets, feels like a yeast infection - Reports typically using antifungal cream for treatment; ordered with subjective improvement - No difficulty with voiding or pain - Encouraged to follow up with Urologist or PCP Recurrent UTI 02/08/2023 Assessment & Plan (02/04/2024 11:48 AM DIGITAL CONTENT MARKETING MANAGER): -Patient presents to clinic with a possitive [...] concerns. Assessment & Plan (04/10/2023 12:48 PM DIGITAL CONTENT MARKETING MANAGER): Clayton Adams is a 77 year old [...] a UTI, they will reach out via [facility] to confirm with the ID clinic that antibiotics are indicated - Will request urine culture data from the past year from [facility] Assessment & Plan (04/10/2023 12:32 PM DIGITAL CONTENT MARKETING MANAGER): >>ASSESSMENT AND PLAN FOR RECURRENT UTI WRITTEN ON 03/11/2023 9:19 AM BY TERRELL VELÁZQUEZ, SCIENCE TECHNICIAN - H/o recurrent UTIs. Reported dysuria, urinary [...] laser lithotripsy stent placement - ID followed, tx'ed on PO Cipro and linezolid x7 days total. ID suspected symptoms of dysuria are related to something non-infectious like irritation from the radiation therapy - Currently without symptoms - UA PULP MACHINE OPERATOR, ordered by outpatient surgery office 03/06: spec gravity 1.024, urine nitriate negative, leuk esterase trace, RBC 11-20, WBC 21-50, no bacteria - ID c/s per Dr Bernard, appreciate recs - No abx per ID Assessment & Plan (02/12/2023 12:26 PM DIGITAL CONTENT MARKETING MANAGER): H/o recurrent UTIs. Reports dysuria, urinary urgency [...] 12/10/2022 Assessment & Plan (03/11/2023 9:20 AM DIGITAL CONTENT MARKETING MANAGER): - prior complex PAD history with multiple [...] hematuria Assessment & Plan (02/12/2023 1:15 PM DIGITAL CONTENT MARKETING MANAGER): H/o PVD with multiple lower extremity endo [...] 08/17/2022 Assessment & Plan (04/28/2024 9:36 AM DIGITAL CONTENT MARKETING MANAGER): - Cultures +MSSA and PSAR - Completed [...] months Assessment & Plan (02/04/2024 11:49 AM DIGITAL CONTENT MARKETING MANAGER): - Cultures +MSSA and PSAR - Completed [...] friable and completely dehisced with disruption of [place] superficial femoral artery and stent graft extending [...] progression of dx on L 01/19/21: lL ETHYLBENZENE OXIDIZER endarterectomy, left EI balloon angioplasty and profundoplasty with right-sided SFA-pop artery drug coated balloon angioplasty on 01/19/2021. 03/02/21: left proximal SFA to left distal posterior tibial artery 6mm PTFE bypass 11/09/21: Right SFA and TP trunk drug coated balloon angioplasty on 11/09/2021. [id number] Interval Left AKA at OSH 08/16/22: left groin redo exploration with explantation of the left femoral distal infected PTFE graft remnant with debridement of the left superficial femoral artery and ligation of the proximal left SFA stump with muscle flap by PRS. 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), CVA, AAA, PVD with claudication, Left AKA and removal of infected graft atrial fibrillation on , prostate cancer s/p radiation (2020), bladder cancer [...] UA with reflex culture done at O[facility] ([facility]) 03/06 which showed trace leukocyte esterase and [...] 11/08/2021 Assessment & Plan (02/11/2023 4:50 PM DIGITAL CONTENT MARKETING MANAGER): - continue home Lasix 20 mg daily [...] 2021 Assessment & Plan (02/09/2023 9:26 AM DIGITAL CONTENT MARKETING MANAGER): - continue home aspirin and statin Assessment & Plan (08/18/2022 11:52 AM CDT): On outpatient aspirin and statin - was on Plavix as an outpatient but reports it being discontinued in the past. - PT/OT Assessment & Plan (11/10/2021 10:08 AM CDT): - Plavix resumed, continue statin - PT/OT Atrial fibrillation 11/08/2021 Assessment & Plan (05/09/2023 8:26 AM DIGITAL CONTENT MARKETING MANAGER): -Holding home low dose rivaroxaban, discussing with Dr Bernard when to resume post-op Assessment & Plan (03/07/2023 1:26 PM DIGITAL CONTENT MARKETING MANAGER): - on ASA, rivaroxaban at home Assessment & Plan (02/12/2023 1:15 PM DIGITAL CONTENT MARKETING MANAGER): History of paroxysmal atrial fibrillation. On Xarelto 2.5 mg b.i.d. Not on full- dose anticoagulation. - continue xarelto 2.5mg bid (PAD dosing). Ok to continue per urology and vasc Assessment & Plan (08/17/2022 8:00 AM CDT): Had bradycardia last admission at [facility] 11/2021. Not on home betablocker. - On outpatient Eliquis, holding for now. - Continue statin. Assessment & Plan (11/08/2021 6:29 AM CDT): -Continue home Coreg -Holding home Eliquis. Continue Hep gtt Arterial occlusion, lower extremity 11/07/2021 Overview (11/07/2021): Added automatically from request for surgery [id number] Assessment & Plan (11/10/2021 10:06 AM CDT): [...] 02/28/2021 Assessment & Plan (03/06/2021 7:17 AM DIGITAL CONTENT MARKETING MANAGER): - Discussing with home Radiation Oncologist timeline of intervention - Dr De Leon - ([phone]) contacted and requested repeat prostate MRI to [...] 02/27/2021 Assessment & Plan (02/28/2021 9:38 AM DIGITAL CONTENT MARKETING MANAGER): - Reports L great toe nail being [...] post-flap Assessment & Plan (03/06/2021 7:17 AM DIGITAL CONTENT MARKETING MANAGER): - CTAIF with left common femoral artery [...] Eliquis Assessment & Plan (02/27/2021 8:58 PM DIGITAL CONTENT MARKETING MANAGER): - Hep ggt - Rpt CTAIF CAD (coronary artery disease) 01/19/2021 Assessment & Plan (03/07/2023 4:56 PM DIGITAL CONTENT MARKETING MANAGER): - Will dc on Plavix and Xarelto, no ASA - Tele Assessment & Plan (02/11/2023 4:50 PM DIGITAL CONTENT MARKETING MANAGER): S/p CABG x4 (in 2004). Not on [...] 01/19/2021 Assessment & Plan (05/02/2023 7:58 AM DIGITAL CONTENT MARKETING MANAGER): - Encourage cessation - NRT if indicated Assessment & Plan (03/07/2023 1:27 PM DIGITAL CONTENT MARKETING MANAGER): - Encourage cessation, offer NRT Assessment & Plan (02/28/2021 9:50 AM DIGITAL CONTENT MARKETING MANAGER): - Current daily smoker, encourage cessation - NRT if requested Assessment & Plan (01/19/2021 12:53 PM CDT): - Currently a heavy smoker - NRT if indicated inpatient - Encourage cessation Claudication 12/14/2020 Overview (12/14/2020): Added automatically from request for surgery [id number] Assessment & Plan (01/21/2021 9:55 AM CDT): - OR 01/19 for left femoral endarterectomy - PT/OT today 01/21 - Continue aspirin + Plavix Abdominal aortic aneurysm (AAA) ([facility]) 2013 Overview (06/29/2016): Abdominal aortic aneurysm Assessment & Plan (05/02/2023 7:57 AM DIGITAL CONTENT MARKETING MANAGER): - Infrarenal abdominal aortic aneurysm measuring up to 3.4 cm - PCP/vascular follow up for routine monitoring Assessment & Plan (08/16/2022 1:08 PM CDT): - Not at threshold for repair. Continue outpatient monitoring. Assessment & Plan (03/01/2021 8:44 AM DIGITAL CONTENT MARKETING MANAGER): - Small in size and unchanged based [...] (peripheral vascular disease) 11/07/2021 11/07/2021 Atrial fibrillation ([facility]) [I48.91] 08/30/2016 01/19/2021 Acute venous embolism and th rombosis of deep vessels of proximal lower extremity ([facility]) [I82.4Y9] 08/30/2016 01/19/2021 Immunizations Immunization Administration Dates Next Due Influenza, Quadrivalent, Hig h Dose, Preservative Free, Intrr 02/11/2023 Influenza, Unspecified 12/23/2020 Social History Tobacco Use Types Packs/Day Years [...] on file Legal Sex Male 9:24 PM DIGITAL CONTENT MARKETING MANAGER Gender Identity Male 01/10/2021 5:22 PM CDT Sexual Orientation Choose not to disclose 2020 5:22 PM CDT Last Filed Vital Signs Vital Sign Reading Time Taken Comments Blood Pressure 157/56 04/27/2024 11:22 AM DIGITAL CONTENT MARKETING MANAGER Pulse 82 04/27/2024 11:22 AM DIGITAL CONTENT MARKETING MANAGER Temperature 37.1 C (98.7 F) 04/27/2024 11:22 AM DIGITAL CONTENT MARKETING MANAGER Respiratory Rate 16 02/21/2024 2:45 PM DIGITAL CONTENT MARKETING MANAGER Oxygen Saturation 99% 02/21/2024 2:45 PM DIGITAL CONTENT MARKETING MANAGER Inhaled Oxygen Concentration - - Weight 59 kg (130 lb) 04/27/2024 11:22 AM DIGITAL CONTENT MARKETING MANAGER Height 182 cm (5' 11.65 ) 04/27/2024 11:22 AM CS T Body Mass Index 17.8 04/27/2024 11:22 AM DIGITAL CONTENT MARKETING MANAGER Plan of Treatment Not on file Medical Devices Implanted Type Area Food Service Worker Device Identifier Shelf Expiration Date Model / Serial / Lot [employer] [id number] Morton 6mm 90cm 70cm Removable Ring Stretch Thin Wall Graft - [id number] - [id number] Implanted:Qty: 1 on 03/02/2021 by Kamron Bernard MD at [facility] Graft Left: Leg [employer] [id number] 07/23/2024 [id number] / [id number] / Description:Left posterior t ibial [facility] Yahir [id number] Vascu-Guard 8x.8cm Peripheral Patch Vascular Bovine Pericardium - S00 - [id number] Implanted:Qty: 1 on 01/19/2021 by Kamron Bernard MD at [facility] Other - see comments Left: Femoral [facility] Y[employer]ir 09/22/2025 [id number] / 00 / [id number]- [id number] Description:Bovine Pericardi al Patch [facility] EchoFirst Patch Vascuguard 0.88cm [id number] - [id number] Implanted:Qty: 1 on 03/07/2023 by Kamron Bernard MD at [facility] Other - see comments Right: Femoral [facility] [employer] [id number] 10/09/2023 [id number] / / [id number]- [id number] Description:Vascular repair patch Med[employer]onic Inc Everflex Entrust 6mm 150mm 120cm Self Expand Triaxial Low Profile - S00 - [id number] Implanted:Qty: 1 on 01/19/2021 by Kamron Bernard MD at [facility] Stent Right: Femoral [employer] [id number] 12/19/2023 [id number] / 00 / [id number] Description:Superficial Femo ral Artery [employer] Viabahn 8mm 7fr 5cm 120cm Delivery System Superficial Femoral [id number] - [id number] - [id number] Implanted:Qty: 1 on 11/09/2021 by Kamron Bernard MD at [facility] Stent Left: Femoral [employer] [id number] 08/23/2024 [id number] / [id number] / Description:Left SFA [employer] Everflex Entrust 6mm 40mm 120cm Self Expand Triaxial Low Profile - [id number] Implanted:Qty: 1 on 03/07/2023 by Kamron Bernard MD at [facility] Stent Right: Femoral [employer] 06/27/2024 [id number] / / Biocomposites Stimulan Rapid Cure Kit Paste Lofter 10cc 20cc Bone Void [id number] - [id number] Implanted:Qty: 1 on 04/30/2023 by Kamron Bernard MD at [facility] Right: Groin [employer] 11/22/2025 [id number] / / [id number] Description:Mixed with Tobra mycin and vancomycin Explanted Type Area Food Service Worker Device Identifier Shelf Expiration Date Model / Serial / Lot IndigoBoom Universa 6fr 28cm Firm Positioner Monofilament Tether Stent [id number] - [id number] Implanted:Qty: 1 on 02/18/2023 by Theodore Geller MD at [facility] Explanted:Qty: 1 on 02/21/2023 by Referral, Self [employer] [id number] 09/17/2025 [id number] / / [id number] Description:Pt removed stent and catheter at home. Harriet Palma CMA Procedures Procedure Name Priority Date/Time Associated Diagnosis Comments US ARTERIAL DUPLEX LOWER EXTREMITY RIGHT LIMITED Schedule Routine, Read Routine (OP Routine) 04/27/2024 11:59 AM DIGITAL CONTENT MARKETING MANAGER Atherosclerosis of [place] arteries of extremities with intermittent claudication, right leg US FREDERIC Schedule Routine, Read Routine (OP Routine) 04/27/2024 11:59 AM DIGITAL CONTENT MARKETING MANAGER Atherosclerosis of [place] arteries of extremities with intermittent claudication, right leg CTA ABDOMINAL AORTA AND BILATERAL ILIOFEMORAL RUNOFF Schedule Routine, Read Routine (OP Routine) 07/03/2023 2:57 PM CDT Femoral artery stenosis, right Fluid collection at surgical site, initial encounter from Last 3 Months or Most Recently Relevant to Health Maintenance Results * US Arterial Duplex Lower Extremity Right Limited (04/27/2024 11:59 AM DIGITAL CONTENT MARKETING MANAGER) LV EF % CONS SCIMAGE Anatomical Region Laterality Modality Vascular Right Ultrasound 04/27/2024 10:5 1 AM DIGITAL CONTENT MARKETING MANAGER Narrative 04/27/2024 4:18 PM DIGITAL CONTENT MARKETING MANAGER [facility] - Department of Vascular Surgery, Vascular Laboratory [address] [place], [place] [id number] [place] Lower Extremity Arterial Duplex Report Patient Name: CLAYTON ADAMS : 1945 Study Date: 04/27/2024 10:51:49 AM Gender: M Tech: TT Location: [facility] Provider: YENI CRUZ Quality: Adequate Order Provider: YENI CRUZ PROCEDURES: Arterial Report: Right Lower Extremity Arterial Duplex Exam. INDICATIONS: I70.211 Atherosclerosis of [place] arteries of extremities with intermittent claudication, right leg. MEASUREMENTS: Right Value Units Rt Distal External Iliac 126 cm/s Rt ETHYLBENZENE OXIDIZER Dst PSV 103 cm/s Rt Profunda Prx [...] cm/s Right Value Units - FINDINGS: Performing Pelt Dropper: Jourdan Juan RVT. Right Distal External Iliac: [...] Duplex imaging of the right lower extremity [place] arteries reveals patent vessels with no flow [...] By: Kamron SANTORO OR 04/27/2024 4:16:58 PM DIGITAL CONTENT MARKETING MANAGER Procedure Note Kamron Bernard MD - 04/27/2024 [facility] - Department of Vascular Surgery,Vascular Laboratory [address] [place] [address] [place] Lower Extremity Arterial Duplex Report Patient Name: CLAYTON ADAMS : 1945 Study Date: 04/27/2024 10:51:49 AM Gender: M Tech: TT Location: [facility] Provider: YENI CRUZ Quality: Adequate Order Provider: YENI CRUZ PROCEDURES: Arterial Report: Right Lower Extremity Arterial Duplex Exam. INDICATIONS: I70.211 Atherosclerosis of [place] arteries of extremities withintermittent claudication, right leg. MEASUREMENTS: Right Value Units Rt Distal External Iliac 126 cm/s Rt ETHYLBENZENE OXIDIZER Dst PSV 103 cm/s Rt Profunda Prx [...] cm/s Right Value Units - FINDINGS: Performing Pelt Dropper: Jourdan Juan RVT. Right Distal External Iliac: [...] Duplex imaging of the right lower extremity [place] arteries revealspatent vessels with no flow limiting [...] By: Kamron SANTORO OR 04/27/2024 4:16:58 PM DIGITAL CONTENT MARKETING MANAGER us Yeni Cruz SCIENCE TECHNICIAN IMG US PROCEDURES Final Result * US FREDERIC (04/27/2024 11:59 AM DIGITAL CONTENT MARKETING MANAGER) LV EF % CONS SCIMAGE Anatomical Region Laterality Modality Vascular N/A Ultrasound 04/27/2024 10:4 7 AM DIGITAL CONTENT MARKETING MANAGER Narrative 04/27/2024 4:18 PM DIGITAL CONTENT MARKETING MANAGER [facility] - Department of Vascular Surgery, Vascular Laboratory [address] [place] [address] Lower Extremity Arterial Doppler Report Patient Name: CLAYTON ADAMS : 1945 Study Date: 04/27/2024 10:47:00 AM Gender: M Tech: Jourdan Juan [facility] Location: [facility] Ref Provider: YENI CRUZ Quality: Adequate Order Provider: YENI CRUZ PROCEDURES: Arterial Report: Ankle - Brachial Index Doppler exam. INDICATIONS: I70.211 Atherosclerosis of [place] arteries of extremities with intermittent claudication, right leg. MEASUREMENTS: Right Value Units Left Value Units Rt Brachial Pressure 150 mmHg Lt Brachial Pressure 148 mmHg Rt PULP MACHINE OPERATOR Pressure 135 mmHg Lt PULP MACHINE OPERATOR Pressure AKA mmHg Rt DPA Pressure 125 mmHg Lt DPA Pressure AKA mmHg Rt 1st Digit Pressure 90 mmHg Lt 1st Digit Pressure AKA mmHg Rt PT FREDERIC Resting 0.9 Lt PT FREDERIC Resting AKA Rt AT FREDERIC Resting 0.83 Lt AT FREDERIC Resting AKA Rt Digit/Arm Index 0.6 Lt Digit/Arm Index AKA Right Value Units Left Value Units - FINDINGS: Performing Pelt Dropper: Jourdan Juan RVT. Right Posterior Tibial Artery [...] By: Kamron SANTORO OR 04/27/2024 4:17:13 PM DIGITAL CONTENT MARKETING MANAGER Procedure Note Kamron Bernard MD - 04/27/2024 [facility] - Department of Vascular Surgery,Vascular Laboratory [address] [place] [address] Lower Extremity Arterial Doppler Report Patient Name: CLAYTON ADAMS : 1945 Study Date: 04/27/2024 10:47:00 AM Gender: M Tech: Jourdna Juan [place] Location: [facility] Provider: YENI CRUZ Quality: Adequate Order Provider: YENI CRUZ PROCEDURES: Arterial Report: Ankle - Brachial Index Doppler exam. INDICATIONS: I70.211 Atherosclerosis of [place] arteries of extremities withintermittent claudication, right leg. MEASUREMENTS: Right Value Units Left ValueUnits Rt Brachial Pressure 150 mmHg Lt Brachial Pressure 148mmHg Rt PULP MACHINE OPERATOR Pressure 135 mmHg Lt PULP MACHINE OPERATOR Pressure AKAmmHg Rt DPA Pressure 125 mmHg Lt DPA Pressure AKAmmHg Rt 1st Digit Pressure 90 mmHg Lt 1st Digit Pressure AKAmmHg Rt PT FREDERIC Resting 0.9 Lt PT FREDERIC Resting AKA Rt AT FREDERIC Resting 0.83 Lt AT FREDERIC Resting AKA Rt Digit/Arm Index 0.6 Lt Digit/Arm Index AKA Right Value Units Left ValueUnits - FINDINGS: Performing Pelt Dropper: Jourdan Juan RVT. Right Posterior Tibial Artery [...] By: Kamron SANTORO OR 04/27/2024 4:17:13 PM DIGITAL CONTENT MARKETING MANAGER us Yeni Cruz SCIENCE TECHNICIAN IMG US PROCEDURES Final Result * CTA Abdominal Aorta And Bilateral Iliofemoral Runoff (07/03/2023 2:57 PM CDT) Anatomical Region Laterality Modality Body Bilateral Computed Tomogra phy 07/03/2023 8:11 PM CDT Impressions 07/03/2023 8:11 PM CDT Findings as described above. Electronically signed by: Brandon Lucas M.D. Narrative 07/03/2023 8:11 PM CDT EXAMINATION: CTA ABDOMINAL [...] K.pneumoniae urine 08/08/22 08/08/2022 08/08/2022 Insurance MEDICARE [facility] Address: [facility] [address] [place] [address] [facility] MEDICARE MEDICARE [facility] BENEFIT PLAN MEDICARE [facility] BENEFIT PLAN MEDICARE [facility] BENEFIT PLAN Advance Directives For more information, please contact: [phone] Documents on File Type Date Recorded Patient Take Down Inspector Expl anation ADVANCE DIRECTIVE 03/07/2023 10:53 AM [...] 9:03 PM 02/12/2023 8:00 PM Care Teams Glass Driller Relationship Specialty Start Date End Date Som Kenny MD [address] [address] PCP - General 06/22/16 Kamron Bernard MD [address] [address] Consulting Physician Vascular Surgery 01/22/21 Jasen Whalen MD [address] [place] [address] Consulting Physician Urology 12/31/22
--- OUTSIDE RECORDS SUMMARY | 2024-06-18 12:50 | XMS_ITS | Clinical Summary ---
Author Organization [facility] Address [address] [place] [address] Care Team Providers Care Environmental Coordinator Name Role Phone Unavailable Primary Care Provider Unavailabl e Social History Tobacco Use Types Packs/Day Years Used Date Smoking Tobacco: Never Assessed Sex and Gender Information Value Date Recorded Sex Assigned at Not on file Legal Sex Male 9:56 AM CDT Gender Identity Not on file Sexual Orientation Not on file Plan of Treatment Health Maintenance Due Date Last Done Comments DTAP/TDAP/TD VACCINES (1 - Tdap) 1965 PNEUMOCOCCAL VACCINE 50+ YEARS (1 of 1 - PCV) 12/31/18 97 ZOSTER VACCINE (1 of 2) 1996 RSV VACCINE (60+ or ) (1 - 1-dose 75+ series) 2021 INFLUENZA VACCINE (#1) 2023 Insurance MEDICARE PART A AND B [facility] [employer] PPO
[2024-06-18 12:55] LABS: Alanine Aminotransferase 14 U/L (6-50); Albumin Level 3.2 g/dL (3.5-5.1); Alkaline Phosphatase 68 U/L (38-126); Anion Gap 5 mmol/L (4-12); Aspartate Amino Transferase 21 U/L (17-59); Bilirubin,Total 0.4 mg/dL (0.2-1.3); Blood Urea Nitrogen 15 mg/dL (9-20); Calcium 8.9 mg/dL (8.4-10.2); Carbon Dioxide 26 mmol/L (22-30); Chloride 107 mmol/L (98-107); Cholesterol 112 mg/dL (0-200); Estimated Glomerular Filt Rate > 60; Glucose 101 mg/dL (65-110); HDL Direct 58 mg/dL; Potassium 3.7 mmol/L (3.4-5.0); Sodium 138 mmol/L (137-145); Triglycerides 87 mg/dL (<150)
[2024-06-18 13:06] LABS: LDL Cholesterol Direct 31 mg/dL
== END 2024-06-18 11:25 | disposition home or self-care (01) ==
LOC: ANHLAB 11:26
PROVIDERS: PCP Family Medicine; Visit Provider Physician Assistant
DX: D64.9 Anemia, unspecified (principal); I50.9 Heart failure, unspecified; I11.9 Hypertensive heart disease without heart failure; I25.10 Atherosclerotic heart disease of native coronary artery without angina pectoris; I48.91 Unspecified atrial fibrillation; Z00.00 Encounter for general adult medical examination without abnormal findings; R73.01 Impaired fasting glucose
CPT/HCPCS: 36415; 80053; 80061; 84443; 85025

== ENCOUNTER 2025-03-11 11:30 | Inpatient (IN) | payer MEDICARE, OTHER, SELFPAY ==
[2025-03-11] VITALS (15 sets, daily range): BP systolic 90–146; BP diastolic 33–85; PULSE 37–144; RESP 14–28; TEMP 36.4–36.8; O2SAT 89–100; BMI 14.8
--- NOTE | ~2025-03-11 | XR_ITS ---
EXAMINATION: XR chest 1V portable DATE: 03/17/2025 04:41 INDICATION: Left lung atelectasis TECHNIQUE: frontal view of the chest was obtained. COMPARISON: Chest radiograph dated 03/16/[address] dated 03/12/2025 FINDINGS: There is persistent near complete opacification of the left hemithorax with small amount of residual aerated lung at the left costophrenic angle. Cannot exclude an underlying pneumonia, malignancy or associated pleural effusion along with the near complete collapse of the left lung. There is abrupt cut off to the left mainstem bronchus. A spiculated pleural-based mass at the lateral right upper lung zone skinfold projects over the lateral right midlung. No pneumothorax or right-sided pleural effusion. Right-sided the cardiomediastinal silhouette is unremarkable. The left side is obscured. Median sternotomy wires and mediastinal surgical clips are seen, likely from prior coronary artery bypass grafting. IMPRESSION: 1. Persistent near complete collapse of the left lung with abrupt cut off of the left mainstem bronchus which could be due to mucous plug or potentially malignancy. Consider bronchoscopy for further evaluation. Cannot exclude pneumonia or malignancy within the collapsed lung or an associated left pleural effusion. 2. Unchanged pleural-based spiculated mass at the lateral right upper lung which remains concerning for malignancy. Reviewed, dictated and finalized at location A. [employer] IMPRESSION: 1. Persistent near complete collapse of the left lung with abrupt cut off of th e left mainstem bronchus which could be due to mucous plug or potentially malig lorene. Consider bronchoscopy for further evaluation. Cannot exclude pneumonia o r malignancy within the collapsed lung or an associated left pleural effusion. 2. Unchanged pleural-based spiculated mass at the lateral right upper lung whic h remains concerning for malignancy.
--- NOTE | ~2025-03-11 | XR_ITS ---
XR chest 1V portable 03/18/2025 05:52 Indication: Left lung atelectasis Procedure: AP portable chest Comparison: Comparison to multiple prior studies sequentially, with oldest reviewed study dated 03/11/2025. Findings: Complete opacification of the left hemithorax unchanged. No significant mediastinal shift. Status post median sternotomy for CABG. Spiculated pleural-based mass right upper lobe, suspicious for bronchogenic carcinoma. No acute osseous abnormality. Impression: 1: Persistent complete opacification left hemithorax without significant change. Differential diagnosis includes atelectasis, effusion and centrally obstructing mass (abrupt termination of the left mainstem bronchus noted). 2: Spiculated pleural-based right upper lobe mass, suspicious for bronchogenic carcinoma. Reviewed, dictated and finalized at location O. [facility] [employer] Impression: 1: Persistent complete opacification left hemithorax without significant change . Differential diagnosis includes atelectasis, effusion and centrally obstructi ng mass (abrupt termination of the left mainstem bronchus noted). 2: Spiculated pleural-based right upper lobe mass, suspicious for bronchogenic carcinoma.
--- NOTE | ~2025-03-11 | XR_ITS ---
EXAMINATION: XR chest 1V portable DATE: 03/19/2025 05:46 INDICATION: Left lung atelectasis TECHNIQUE: frontal view of the chest was obtained. COMPARISON: Chest radiograph and CT dated 03/18/2025 FINDINGS: Persistent near complete opacification of the left lung. This includes some atelectasis with volume loss resulting in elevation of the left hemidiaphragm. There is abrupt cut off of the left mainstem bronchus and findings on prior CT raises concern for an hilar mass and secondary more peripheral postobstructive pneumonia with associated pleural effusion. Unchanged peripheral spiculated opacity at the lateral right upper lung zone also raising concern for malignancy. No pneumothorax or right-sided pleural effusion. Right-sided the cardiomediastinal silhouette is unremarkable in the left side remains obscured. Median sternotomy wires and mediastinal surgical clips are seen, likely from prior coronary artery bypass grafting. IMPRESSION: 1. Unchanged near complete opacification of the left hemithorax which on prior CT this represent combination of atelectasis, pneumonia and pleural effusion potentially with concern for obstructing malignant left hilar mass on prior CT. 2. Unchanged peripheral spiculated opacity at the lateral right upper lung also concerning for malignancy. Reviewed, dictated and finalized at location A. STAMPER IMPRESSION: 1. Unchanged near complete opacification of the left hemithorax which on prior CT this represent combination of atelectasis, pneumonia and pleural effusion po tentially with concern for obstructing malignant left hilar mass on prior CT. 2. Unchanged peripheral spiculated opacity at the lateral right upper lung also concerning for malignancy.
--- NOTE | ~2025-03-11 | CT_ITS ---
EXAMINATION: CT diagnostic chest w con DATE: 03/18/2025 10:24 INDICATION: Left lung collapse. Pleural effusion. TECHNIQUE: Computed tomography (CT) of the chest was performed with intravenous contrast. The dose-length product was 144.83 mGy-cm. Automated exposure control and iterative reconstruction technique were employed. COMPARISON: 03/12/2020 FINDINGS: There is abnormal soft tissue at the left hilum obstructing the left mainstem bronchus, concerning for malignancy. There is complete left lung collapse with moderate left pleural effusion. No significant mediastinal deviation. There is a spiculated pleural-based mass with air bronchograms in the right upper lobe. Differential diagnosis includes bronchogenic carcinoma and/or superimposed pneumonia. There is mediastinal lymphadenopathy. There are multiple hypodense lesions of the liver with fluid attenuation, most likely benign cysts. With a lymph node measuring 1.5 cm transversely. There is a pleural-based spiculated soft tissue in the right upper lobe with air bronchograms no central pulmonary embolism there is atherosclerosis of the aorta without evidence for aneurysm or dissection. Borderline heart size. There are multiple hypodense masses of the liver the largest of which exhibit fluid attenuation, most likely benign there are patchy areas of additional consolidation in the right upper and lower lobe. 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 IMPRESSION: 1. Obstructing left hilar soft tissue with abrupt cut off of left mainstem bronchus, resulting in complete collapse of the left lung and moderate left pleural effusion-highly concerning for obstructing central bronchogenic malignancy. 2: Mediastinal lymphadenopathy, suspicious for jake involvement. Recommend pulmonary consultation for bronchoscopy with biopsy. Consider PET/CT scan for staging and evaluation of right lung opacity and mediastinal lymphadenopathy. Consider thoracentesis of pleural effusion if clinically indicated for diagnostic purposes. 3: Right upper lobe pleural-based spiculated opacity, with additional patchy areas of consolidation and groundglass opacification in the right-May represent synchronous malignancy, post obstructive infection or inflammatory process. 4: Hypodense hepatic masses, most likely benign cysts. Reviewed, dictated and finalized at location O. N RESOURCES ASSOCIATE IMPRESSION: 1. Obstructing left hilar soft tissue with abrupt cut off of left mainstem bron chus, resulting in complete collapse of the left lung and moderate left pleural effusion-highly concerning for obstructing central bronchogenic malignancy. 2: Mediastinal lymphadenopathy, suspicious for jake involvement. Recommend pul monary consultation for bronchoscopy with biopsy. Consider PET/CT scan for stag ing and evaluation of right lung opacity and mediastinal lymphadenopathy. Consi cindy thoracentesis of pleural effusion if clinically indicated for diagnostic pu rposes. 3: Right upper lobe pleural-based spiculated opacity, with additional patchy ar eas of consolidation and groundglass opacification in the right-May represent s ynchronous malignancy, post obstructive infection or inflammatory process. 4: Hypodense hepatic masses, most likely benign cysts.
--- NOTE | ~2025-03-11 | XR_ITS ---
Examination: XR chest 1V portable Clinical History: left lung collapse Comparison: Chest x-ray one day prior Technique: Portable AP Findings: Heart size unchanged. Complete opacification left hemithorax, with crescentic lateral more lucent component. Right upper lobe spiculated lesion as before. No acute bony abnormality. IMPRESSION: 1. No significant change or worsening. Reviewed, dictated and finalized at location R. ACE FEEDER
--- NOTE | ~2025-03-11 | CT_ITS ---
CT HEAD NON-CONTRAST CT C-SPINE Clinical History: head injury Comparison: CT brain 06/22/2019 Technique: Unenhanced axial images skull base to vertex. Coronal, sagittal reformats. Axial images thoracic inlet to skull base. Sagittal and coronal reformats. CT images acquired with automatic exposure control for dose reduction DLP: 681 mGy-cm Findings: Head: Bilateral basal ganglia lacunae. Sulci, ventricles: Unremarkable. No intracerebral hemorrhage. No evidence acute territorial infarct. No mass effect, midline shift, intra-/extra-axial fluid collection. Bony calvarium intact. Visualized paranasal sinuses: Mild maxillary disease. Mastoid air cells: Clear. C-spine: No acute fracture or listhesis. Vertebral bodies normal height and alignment. Moderate degenerative changes. Disc spaces maintained. Prevertebral soft tissues within normal limits. Visualized lung apices: Emphysema. Airspace disease right lateral. Visualized thyroid: Unremarkable. No enlarged cervical nodes. IMPRESSION: HEAD: 1. No acute intracranial findings. C-SPINE: 1. No acute fracture. 2. Incompletely seen dense probable pneumonia right side. Chest x-ray today demonstrates worse pneumonia left lung. Recommend short interval follow-up chest x-rays and/or CT chest to exclude underlying lesion. Reviewed, dictated and finalized at location R. NOLOGY SALES CONSULTANT IMPRESSION: HEAD: 1. No acute intracranial findings. C-SPINE: 1. No acute fracture. 2. Incompletely seen dense probable pneumonia right side. Chest x-ray today de monstrates worse pneumonia left lung. Recommend short interval follow-up chest x-rays and/or CT chest to exclude underlying lesion.
--- NOTE | ~2025-03-11 | XR_ITS ---
EXAMINATION: XR chest 2V DATE: 03/11/2025 12:34 INDICATION: Dyspnea TECHNIQUE: Frontal and lateral views of the chest were obtained. COMPARISON: June 20, 2022 FINDINGS: Left hilar and perihilar opacification consistent with pneumonia. Lymphadenopathy or other process is not excluded. The right lung is stable. Heart shadow normal in size. Sternal retention wires stable in configuration. No pneumothorax or subphrenic free air. IMPRESSION: 1. Left perihilar consolidative process possibly representing pneumonia. Finding should be followed radiographically until clear. Reviewed, dictated and finalized at location A. INE SNELLER IMPRESSION: 1. Left perihilar consolidative process possibly representing pneumonia. Findin g should be followed radiographically until clear.
--- NOTE | ~2025-03-11 | XR_ITS ---
XR chest 2V 03/15/2025 08:16 Indication: Pneumonia Procedure: 2 view chest Comparison: Comparison to multiple prior studies sequentially, with oldest reviewed study dated 05/03/2022. Findings: Status post median sternotomy for CABG. There is complete opacification of the left hemithorax. There is right apical consolidation with adjacent pleural thickening. No pneumothorax. No acute osseous abnormality. Impression: 1: Complete opacification left hemithorax which may represent a combination of pneumonia, atelectasis and/or pleural effusion. 2: Right upper lobe airspace disease with adjacent pleural thickening, suspicious for pneumonia versus scarring. Reviewed, dictated and finalized at location O. CURER Impression: 1: Complete opacification left hemithorax which may represent a combination of pneumonia, atelectasis and/or pleural effusion. 2: Right upper lobe airspace disease with adjacent pleural thickening, suspicio us for pneumonia versus scarring.
--- NOTE | ~2025-03-11 | XR_ITS ---
XR chest 1V portable 03/19/2025 15:27 Indication: Post bronchoscopy. Procedure: AP portable chest Comparison: Comparison to multiple prior studies sequentially, with oldest reviewed study dated 03/16/2025. Findings: Status post median sternotomy for CABG. Persistent complete opacification of the left hemithorax. Pleural-based spiculated mass, concerning for bronchogenic carcinoma. There is developing right-sided airspace disease, edema versus pneumonia. Impression: 1: Developing right-sided airspace disease which may represent edema versus pneumonia. Otherwise, no significant change. Reviewed, dictated and finalized at location O. S WORKER Impression: 1: Developing right-sided airspace disease which may represent edema versus pne umonia. Otherwise, no significant change.
--- NOTE | ~2025-03-11 | CT_ITS ---
CT diagnostic chest wo con HISTORY:perihilar PNA, smoker COMPARISON: 04/02/2023. TECHNIQUE: Axial images of the chest were obtained without infusion of intravenous contrast. Dose optimization technique was utilized. FINDINGS: The examination demonstrates increase in patchy nodular opacity within the right upper lobe which now measures up to 4.7 x 3.2 cm. There is left perihilar consolidation extending into the upper and lower lobes where there are air bronchograms noted. There is a small left pleural effusion. Cardiac size and mediastinal configuration are normal in appearance. No hilar or mediastinal lymphadenopathy is seen. The thoracic aorta is normal in caliber. Osseous structures are intact. Hepatic cysts are stable. IMPRESSION: Increase in spiculated pleural-based nodule within the right upper lobe measuring up to 4.7 x 3.2 cm noted. There are several smaller adjacent spiculated nodules. This is concerning for malignancy. There is left perihilar airspace opacity extending into the upper and lower lobes with air bronchograms noted. There is small left pleural effusion. Consider follow-up bronchoscopy. All CT scans at this facility are performed using low dose modulation techniques as appropriate to perform exam including the following: automated exposure control; use of iterative reconstruction technique; adjustment of the mA and/or kV according to patient size (this includes techniques or standardized protocols for targeted exams where dose is matched to indication/reason for exam). Reviewed, dictated and finalized at location S. AND EXHIBIT DESIGNER IMPRESSION: Increase in spiculated pleural-based nodule within the right upper lobe measuri ng up to 4.7 x 3.2 cm noted. There are several smaller adjacent spiculated nodu les. This is concerning for malignancy. There is left perihilar airspace opacity extending into the upper and lower lob es with air bronchograms noted. There is small left pleural effusion. Consider follow-up bronchoscopy. All CT scans at this facility are performed using low dose modulation techniqu es as appropriate to perform exam including the following: automated exposure c ontrol; use of iterative reconstruction technique; adjustment of the mA and/or kV according to patient size (this includes techniques or standardized protocol s for targeted exams where dose is matched to indication/reason for exam).
--- NOTE | 2025-03-11 11:37 | ECG_ITS ---
Test Date: 2025-03-11 12:05:21 Measurements Intervals [place] Rate: 138 P: 0 NH: 0 QRS: 4 QRSD: 113 T: 24 QT: 248 QTc: 376 Interpretive Statements ATRIAL FIBRILLATION WITH RAPID VENTRICULAR RESPONSE INTRAVENTRICULAR CONDUCTION DELAY LEFT VENTRICULAR HYPERTROPHY WITH ST-T CHANGE MARKED ST DEPRESSION IN ANTEROLATERAL LEADS, CONSIDER SUBENDOCARDIAL INJURY BASELINE ARTIFACT- V3 ABNORMAL ECG No previous ECG available for comparison Electronically Signed On 03-11-2025 13:15:41 MEDICAL ATTENDANT by Huang Walsh D.O.
[2025-03-11 12:02] LABS: Hematocrit 40.0 % (42.0-52.0); Hemoglobin 12.5 g/dL (14.0-18.0); Immature Granulocyte Percent A 0.6 % (0-0.5); Lymphocytes Absolute Auto 0.50 K/mm3 (0.9-3.2); Mean Corpuscular HGB Conc 31.3 g/dl (32-36); Mean Corpuscular Hemoglobin 28.3 pg (26-34); Mean Corpuscular Volume 90.5 fl (80-100); Nucleated Red Blood Cells Absolute Auto 0.000 K/mm3 (0.0-0.012); Nucleated Red Blood Cells Perc 0.0 % (0.0-0.2); Platelet Count Result 288 k/mm3 (150-375); Red Blood Count 4.42 M/mm3 (4.6-6.20); White Blood Count 14.2 K/mm3 (4.5-10.0)
--- NOTE | 2025-03-11 12:04 | ED_ITS ---
HPI - SOB/Dyspnea General Chief Complaint: Shortness of Breath/Dyspnea <Kera Langley PA-C - Last Filed: 03/11/25 16:48> Stated Complaint: respiratory distress <LEIDY Le Last Filed: 03/11/25 16:48> Time Seen by Provider: 03/11/25 11:37 <LEIDY Le Last Filed: 03/11/25 16:48> Source: patient <LEIDY Le Last Filed: 03/11/25 16:48> Mode of arrival: EMS <LEIDY Le Last Filed: 03/11/25 16:48> Limitations: other (poor historian) <LEIDY Le Last Filed: 03/11/25 16:48> History of Present Illness HPI Narrative: This is a 79-year-old male that presents to the ER for generalized weakness. Reportedly patient has been ill with a productive cough for the last week. Today with failure to thrive. <LEIDY Le Last Filed: 03/11/25 16:48> Related Data Home Medications: Home Medications ?Medication ?Instructions ?Recorded ?Confirmed ?Last Taken ?Type rivaroxaban 2.5 mg tablet 2.5 mg PO BID 04/21/2303/1103/10/25 History doxycycline hyclate 100 mg capsule 100 mg PO Q12H Blad cindy cancer 03/11/25 03/11/25 03/10/25 History rosuvastatin 40 mg tablet 40 mg PO DAILY Bladder cance r 03/11/25 03/11/25 03/10/25 History <LEIDY Le Last Filed: 03/11/25 16:48> Allergies/Adverse Reactions: Allergies Allergy/AdvReac Type Severity Reaction Status Date / Time Aminoglycosides Allergy Severe RASH Verified 10/09/24 13:33 bacitracin Allergy Severe Rash Verified 10/09/24 13:33 neomycin Allergy Severe RASH Verified 10/09/24 13:33 polymyxin B Allergy Severe Rash Verified 10/09/24 13:33 <LEIDY Le Last Filed: 03/11/25 16:48> PMF Past Medical History Medical History: Medical History S/P angiogram of extremity C. difficile colitis ESBL (extended spectrum beta-lactamase) producing bacteria infection Aspiration into airway History of infection due to ESBL Klebsiella oxytoca Sepsis History of stroke with current residual effects CVA (cerebral vascular accident) Cough Acute CVA (cerebrovascular accident) Basal cell carcinoma (BCC) on face removed in 2011 Foot fracture, left DDD (degenerative disc disease) Cyst of right kidney Arthritis Enlarged prostate Renal disease HTN (hypertension) Hypercholesteremia CAD (coronary artery disease) Farsightedness Left ear hearing loss CHF (congestive heart failure) Myocardial infarction <Kera Langley PA-C - Last Filed: 03/11/25 16:48> Surgical History Surgical History: Surgical History 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 <Kera Langley PA-C - Last Filed: 03/11/25 16:48> Social History Social History: Social History Social History: Patient lives at home with his , Loan, whom he designates as his surrogate MDM. His PCP is Dr. Kenny. Code status: DNR/DNI (per patient request) Smoking packs per day: 0.5 Smoking cigarettes per day: 10.0 Years smoked: 50 Smoking pack-years: 25.00 Smoking status: Current every day smoker Tobacco type: cigarettes Second hand tobacco smoke exposure: Yes Additional smoking assessment comments: pt states he is not interested in quitting right now Alcohol intake: former Substance use: never Substance use type: does not use Lack of Transportation: No Lack of Food: Never True Current Housing: I Have Housing Concerned About Future Housing: No Difficulty Paying Gas/Electric Bills: No Difficulty Paying for Meds: No Currently Unemployed: No Education: Bachelor's Degree Difficulty w/ Childcare or Family Care: No Living arrangements: with family Additional living arrangements comments: Gender identity (if verbalized by the patient): Male Sexual Orientation (if Verbalized by the Patient): Straight or Heterosexual Spiritual care concerns: No Agree to blood products: Yes <Kera Langley PA-C - Last Filed: 03/11/25 16:48> Course INTERIOR DESIGN PROFESSOR/PA Physician Supervision This visit was performed by both a physician and an APC; I performed all aspects of the medical decision making component of this evaluation as documented. Patient presenting with AFib with RVR, soft pressures, thankfully did convert back to sinus with improvement in vitals. Admitted for further evaluation workup. <Erin Ventura MD - Last Filed: 03/11/25 17:35> Vital Signs Vital signs: Vital Signs Temperature 97.5 F L 03/11/25 11:35 Pulse Rate 137 H 03/11/25 11:35 Respiratory Rate 27 H 03/11/25 11:35 Blood Pressure 104/62 03/11/25 11:35 Pulse Oximetry 89 L 03/11/25 11:35 Oxygen Delivery Room Air 03/11/25 11:35 Temperature 97.5 F L 03/11/25 11:35 Pulse Rate 65 03/11/25 16:30 Respiratory Rate 14 03/11/25 16:30 Blood Pressure 111/56 L 03/11/25 16:30 Pulse Oximetry 97 03/11/25 16:30 Oxygen Delivery Nasal Cannula 03/11/25 11:52 Oxygen Flow Rate 3 03/11/25 11:52 <Kera Langley PA-C - Last Filed: 03/11/25 16:48> Vital Signs Temperature 97.5 F L 03/11/25 11:35 Pulse Rate 137 H 03/11/25 11:35 Respiratory Rate 27 H 03/11/25 11:35 Blood Pressure 104/62 03/11/25 11:35 Pulse Oximetry 89 L 03/11/25 11:35 Oxygen Delivery Room Air 03/11/25 11:35 Temperature 97.5 F L 03/11/25 11:35 Pulse Rate 65 03/11/25 16:30 Respiratory Rate 14 12/18/25 16:30 Blood Pressure 111/56 L 03/11/25 16:30 Pulse Oximetry 97 03/11/25 16:30 Oxygen Delivery Nasal Cannula 03/11/25 11:52 Oxygen Flow Rate 3 03/11/25 11:52 <Erin Ventura MD - Last Filed: 03/11/25 17:35> [facility] Narrative Medical decision making narrative: Patient presents to the emergency department for productive cough, generalized weakness, shortness of breath. Patient noted to be in atrial fibrillation with rapid ventricular rate. He did convert to normal sinus rhythm before any intervention. Oxygen saturation in the upper 80s on air. Placed on 3 L nasal cannula. CBC with leukocytosis to 14.2. Metabolic panel with normal kidney function. Initial lactic acid is elevated, this normalized with IV fluids. Urine without evidence of infection. This was sent for culture. Blood cultures obtained, patient started on IV antibiotics to cover for pneumonia and possible UTI. COVID and influenza swabs are negative. Chest x-ray showing findings of pneumonia. CT brain and cervical spine without acute findings. Patient will be admitted to the hospitalist service for further management < Kera Langley PA-C - Last Filed: 03/11/25 16:48> Differential Diagnosis Differential Diagnosis: pneumonia, covid, influenza, respiratory failure, atrial fibrillation, atrial flutter, sepsis <Kera Langley PA-C - Last Filed: 03/11/25 16:48> Lab Data [facility] Lab Attestation statement: I personally reviewed the patient's lab results. <Kera Langley PA-C - Last Filed: 03/11/25 16:48> Result diagrams: 03/11/25 11:53 03/11/25 11:53 <Kera Langley PA-C - Last Filed: 03/11/25 16:48> Labs: Lab Results 03/11/25 03/11/25 03/11/25 Range/Units 11:53 13:39 14:51 WBC 14.2 H (4.5-10.0) K/mm3 RBC 4.42 L (4.6-6.20) M/mm3 Hgb 12.5 L (14.0-18.0) g/dL Hct 40.0 L (42.0-52.0) % MCV 90.5 (80-100) fl MCH 28.3 (26-34) pg MCHC 31.3 L (32-36) g/dl RDW 16.1 H (11.5-14.5) % Plt Count 288 D (150-375) k/mm3 MPV 9.1 (7.4-10.4) fl Immature Gran % (Auto) 0.6 H (0-0.5) % Neut % (Auto) 90.9 H (45.5-73.1) % Lymph % (Auto) 3.5 L (18.3-44.2) % [place] % (Auto) 4.5 (2.6-8.5) % Eos % (Auto) 0.3 (0-4.4) % Baso % (Auto) 0.2 (0.2-1.2) % Lymph # (Auto) 0.50 L (0.9-3.2) K/mm3 [place] # (Auto) 0.6 (0.1-0.6) K/mm3 Eos # (Auto) 0.0 (0-0.3) K/mm3 Baso # (Auto) 0.0 (0.0-0.1) K/mm3 Abs Immat Gran (auto) 0.09 H (0.00-0.031) K/mm3 Absolute Neuts (auto) 12.9 H (1.3-6.7) K/mm3 Absolute Nucleated RBC 0.000 (0.0-0.012) K/mm3 Nucleated RBC % 0.0 (0.0-0.2) % PT 17.4 H (11.1-14.7) Seconds INR 1.4 APTT 34.9 (22.3-36.8) Seconds Sodium 138 (137-145) mmol/L Potassium 3.6 (3.4-5.0) mmol/L Chloride 108 H (98-107) mmol/L Carbon Dioxide 23 (22-30) mmol/L Anion Gap 7 (4-12) mmol/L BUN 15 (9-20) mg/dL Creatinine 1.01 (0.7-1.3) mg/dL Estim Creat Clear Calc 40 ml/min Estimated GFR > 60 (59 - ) Glucose 166 H (65-110) mg/dL Lactic Acid 3.7 H 1.4 (0.7-2.0) mmol/L Calcium 9.0 (8.4-10.2) mg/dL Total Bilirubin 0.6 (0.2-1.3) mg/dL AST 25 (17-59) U/L ALT 24 (6-50) U/L Alkaline Phosphatase 85 (38-126) U/L C-Reactive Protein 5.1 H (<1.0) mg/dL Total Protein 6.9 (6.3-8.2) g/dL Albumin 3.1 L (3.5-5.1) g/dL Urine Color Yellow (Yellow) Urine Appearance Turbid H (Clear) Urine pH 7.5 (5.0-9.0) Ur Specific [place] 1.015 (1.001-1.035) Urine Protein 2+ H (Negative) mg/dL Urine Glucose (UA) Negative (Negative) mg/dL Urine Ketones Negative (Negative) mg/dL Ur Blood (Man) Negative (Negative) Urine Nitrate Negative (Negative) Urine Bilirubin Negative (Negative) Urine Urobilinogen 1.0 (<2.0) mg/dL Add Ur Microanalysis Reviewed Leukocyte Esterase Rfl 3+ H (Negative) GERTRUDIS/UL Urine RBC 11-20 H (0-2) /hpf Urine WBC >100 H (0-3) /hpf Ur Squamous Epith Cells None seen (Few) /hpf Urine Bacteria 4+ /hpf Urine Casts 6-10 Influenza A (RT-PCR) Negative (Negative) Influenza B (RT-PCR) Negative (Negative) RSV (RT-PCR) Negative (Negative) SARS-CoV-2 RNA (RT-PCR) Negative (Negative) <Kera Langley PA-C - Last Filed: 03/11/25 16:48> Lab Results 03/11/25 03/11/25 03/11/25 Range/Units 11:53 13:39 14:51 WBC 14.2 H (4.5-10.0) K/mm3 RBC 4.42 L (4.6-6.20) M/mm3 Hgb 12.5 L (14.0-18.0) g/dL Hct 40.0 L (42.0-52.0) % MCV 90.5 (80-100) fl MCH 28.3 (26-34) pg MCHC 31.3 L (32-36) g/dl RDW 16.1 H (11.5-14.5) % Plt Count 288 D (150-375) k/mm3 MPV 9.1 (7.4-10.4) fl Immature Gran % (Auto) 0.6 H (0-0.5) % Neut % (Auto) 90.9 H (45.5-73.1) % Lymph % (Auto) 3.5 L (18.3-44.2) % [place] % (Auto) 4.5 (2.6-8.5) % Eos % (Auto) 0.3 (0-4.4) % Baso % (Auto) 0.2 (0.2-1.2) % Lymph # (Auto) 0.50 L (0.9-3.2) K/mm3 [place] # (Auto) 0.6 (0.1-0.6) K/mm3 Eos # (Auto) 0.0 (0-0.3) K/mm3 Baso # (Auto) 0.0 (0.0-0.1) K/mm3 Abs Immat Gran (auto) 0.09 H (0.00-0.031) K/mm3 Absolute Neuts (auto) 12.9 H (1.3-6.7) K/mm3 Absolute Nucleated RBC 0.000 (0.0-0.012) K/mm3 Nucleated RBC % 0.0 (0.0-0.2) % PT 17.4 H (11.1-14.7) Seconds INR 1.4 APTT 34.9 (22.3-36.8) Seconds Sodium 138 (137-145) mmol/L Potassium 3.6 (3.4-5.0) mmol/L Chloride 108 H (98-107) mmol/L Carbon Dioxide 23 (22-30) mmol/L Anion Gap 7 (4-12) mmol/L BUN 15 (9-20) mg/dL Creatinine 1.01 (0.7-1.3) mg/dL Estim Creat Clear Calc 40 ml/min Estimated GFR > 60 (59 - ) Glucose 166 H (65-110) mg/dL Lactic Acid 3.7 H 1.4 (0.7-2.0) mmol/L Calcium 9.0 (8.4-10.2) mg/dL Total Bilirubin 0.6 (0.2-1.3) mg/dL AST 25 (17-59) U/L ALT 24 (6-50) U/L Alkaline Phosphatase 85 (38-126) U/L C-Reactive Protein 5.1 H (<1.0) mg/dL Total Protein 6.9 (6.3-8.2) g/dL Albumin 3.1 L (3.5-5.1) g/dL Urine Color Yellow (Yellow) Urine Appearance Turbid H (Clear) Urine pH 7.5 (5.0-9.0) Ur Specific [place] 1.015 (1.001-1.035) Urine Protein 2+ H (Negative) mg/dL Urine Glucose (UA) Negative (Negative) mg/dL Urine Ketones Negative (Negative) mg/dL Ur Blood (Man) Negative (Negative) Urine Nitrate Negative (Negative) Urine Bilirubin Negative (Negative) Urine Urobilinogen 1.0 (<2.0) mg/dL Add Ur Microanalysis Reviewed Leukocyte Esterase Rfl 3+ H (Negative) GERTRUDIS/UL Urine RBC 11-20 H (0-2) /hpf Urine WBC >100 H (0-3) /hpf Ur Squamous Epith Cells None seen (Few) /hpf Urine Bacteria 4+ /hpf Urine Casts 6-10 Influenza A (RT-PCR) Negative (Negative) Influenza B (RT-PCR) Negative (Negative) RSV (RT-PCR) Negative (Negative) SARS-CoV-2 RNA (RT-PCR) Negative (Negative) <Erin Ventura MD - Last Filed: 03/11/25 17:35> Imaging Data Radiologist's impression: ITS Impressions Chest X-Ray 03/11/25 12:38 IMPRESSION: 1. Left perihilar consolidative process possibly representing pneumonia. Finding should be followed radiographically until clear. Cervical Spine CT 03/11/25 14:33 IMPRESSION: HEAD: 1. No acute intracranial findings. C-SPINE: 1. No acute fracture. 2. Incompletely seen dense probable pneumonia right side. Chest x-ray today demonstrates worse pneumonia left lung. Recommend short interval follow-up chest x-rays and/or CT chest to exclude underlying lesion. Head CT 03/11/25 14:33 IMPRESSION: HEAD: 1. No acute intracranial findings. C-SPINE: 1. No acute fracture. 2. Incompletely seen dense probable pneumonia right side. Chest x-ray today demonstrates worse pneumonia left lung. Recommend short interval follow-up chest x-rays and/or CT chest to exclude underlying lesion. <Kera Langley PA-C - Last Filed: 03/11/25 16:48> ITS Impressions Chest X-Ray 03/11/25 12:38 IMPRESSION: 1. Left perihilar consolidative process possibly representing pneumonia. Finding should be followed radiographically until clear. Cervical Spine CT 03/11/25 14:33 IMPRESSION: HEAD: 1. No acute intracranial findings. C-SPINE: 1. No acute fracture. 2. Incompletely seen dense probable pneumonia right side. Chest x-ray today demonstrates worse pneumonia left lung. Recommend short interval follow-up chest x-rays and/or CT chest to exclude underlying lesion. Head CT 03/11/25 14:33 IMPRESSION: HEAD: 1. No acute intracranial findings. C-SPINE: 1. No acute fracture. 2. Incompletely seen dense probable pneumonia right side. Chest x-ray today demonstrates worse pneumonia left lung. Recommend short interval follow-up chest x-rays and/or CT chest to exclude underlying lesion. <Erin Ventura MD - Last Filed: 03/11/25 17:35> Critical Care Time Critical Care Time Critical Care Time: Yes <Kera Langley PA-C - Last Filed: 03/11/25 16:48> Initial evaluation, discuss w/ involved parties, attempting to gather old records: 10 minutes <Kera Langley PA-C - Last Filed: 03/11/25 16:48> Documenting medical record: 5 minutes <Kera Langley PA-C - Last Filed: 03/11/25 16:48> Review of results (EKG's, labs, imaging): 5 minutes <LEIDY Le Last Filed: 03/11/25 16:48> Serial repeat bedside evaluation: 10 minutes <LEIDY Le Last Filed: 03/11/25 16:48> Discussing case with multiple memebers of the care team and consultants: 5 minutes <Kera Langley PA-C - Last Filed: 03/11/25 16:48> Total Critical Care Time: 35 <Kera Langley PA-C - Last Filed: 03/11/25 16:48> 35 <Erin Ventura MD - Last Filed: 03/11/25 17:35> Discharge Plan Discharge Clinical Impression: Acute hypoxemic respiratory failure, Atrial fibrillation with RVR Pneumonia Qualifiers: Pneumonia type: due to unspecified organism Laterality: left Lung location: l ower lobe of lung Qualified Code(s): J18.9 - Pneumonia, unspecified organism Sepsis Qualifiers: Sepsis type: sepsis due to unspecified organism Sepsis acute organ dysfunction status: with acute organ dysfunction Severe sepsis acute organ dysfunction type: acute respiratory failure Acute respiratory failure type: with hypoxia Severe sepsis shock status: without septic shock Qualified Code(s): A41.9 - Sepsis, unspecified organism <Kera Langley PA-C - Last Filed: 03/11/25 16:48> Patient Disposition: Still a Patient <Kera Langley PA-C - Last Filed: 03/11/25 16:48> Condition: Improved <Kera Langley PA-C - Last Filed: 03/11/25 16:48>
[2025-03-11 12:16] LABS: INR 1.4; Prothrombin Time 17.4 Seconds (11.1-14.7)
[2025-03-11 12:17] LABS: Partial Thromboplastin Time 34.9 Seconds (22.3-36.8)
--- NOTE | 2025-03-11 12:18 | ECG_ITS ---
Test Date: 2025-03-11 12:22:23 Measurements Intervals [place] Rate: 89 P: 60 ME: 125 QRS: 3 QRSD: 109 T: 60 QT: 407 QTc: 497 Interpretive Statements SINUS RHYTHM WITH FREQUENT VENTRICULAR PREMATURE COMPLEXES INTRAVENTRICULAR CONDUCTION DELAY LEFT VENTRICULAR HYPERTROPHY AND ST-T CHANGE BORDERLINE ST-T WAVE ABNORMALITY- INF/HIGH LAT LEADS ABNORMAL ECG Compared to ECG 03/11/2025 12:05:21 Ventricular premature complex(es) now present Atrial fibrillation no longer present Electronically Signed On 03-11-2025 13:16:55 OUTDOOR ADVERTISING LEASING AGENT by Huang Walsh D.O.
[2025-03-11 12:33] LABS: Alanine Aminotransferase 24 U/L (6-50); Albumin Level 3.1 g/dL (3.5-5.1); Alkaline Phosphatase 85 U/L (38-126); Anion Gap 7 mmol/L (4-12); Aspartate Amino Transferase 25 U/L (17-59); Bilirubin,Total 0.6 mg/dL (0.2-1.3); Blood Urea Nitrogen 15 mg/dL (9-20); CRP 5.1 mg/dL (<1.0); Calcium 9.0 mg/dL (8.4-10.2); Carbon Dioxide 23 mmol/L (22-30); Chloride 108 mmol/L (98-107); Estimated CRCL calculation 40 ml/min; Estimated Glomerular Filt Rate > 60; Glucose 166 mg/dL (65-110); Potassium 3.6 mmol/L (3.4-5.0); Sodium 138 mmol/L (137-145); Total Protein 6.9 g/dL (6.3-8.2)
[2025-03-11 12:38] LABS: Influenza A QL RT-PCR Negative (Negative); Influenza B QL RT-PCR Negative (Negative); RSV RNA, RT-PCR Negative (Negative); SARS-CoV-2 RNA PCR Negative (Negative)
[2025-03-11] MEDS: cefTRIAXone 1 GM in SODIUM CHLORIDE 0.9% IV 50 ML 100 ML IVPB (12:51)
[2025-03-11] MEDS: SODIUM CHLORIDE 0.9% IV 1,000 ML 999 ML IV CONT (12:53)
--- OUTSIDE RECORDS SUMMARY | 2025-03-11 13:10 | XMS_ITS | Clinical Summary ---
Author Organization [facility] Address [address] [place] [id number] Care Team Providers Care Business Systems Lead Name Role Phone Unavailable Primary Care Provider Unavailabl e Social History Tobacco Use Types Packs/Day Years Used Date Smoking Tobacco: Never Assessed Sex and Gender Information Value Date Recorded Sex Assigned at Not on file Legal Sex Male 2:32 PM EST Gender Identity Not on file Sexual Orientation Not on file Plan of Treatment Health Maintenance Due Date Last Done Comments Annual Visit Topic 01/01/1947 Hepatitis C Screening 1963 DTaP/Tdap/Td Vaccines (1 - Tdap) 1965 Pneumococcal Vaccine: 65+ Ye ars (1 of 2 - PCV) 1996 HIB Vaccines Aged Out No longer eligi ble based on patient's age to complete this topic HPV Vaccines Aged Out No longer eligi ble based on patient's age to complete this topic Hepatitis A Vaccines Aged Out No long er eligible based on patient's age to complete this topic Hepatitis B Vaccines Aged Out No long er eligible based on patient's age to complete this topic IPV Vaccines Aged Out No longer eligi ble based on patient's age to complete this topic Meningococcal Vaccine Aged Out No richelle shayla eligible based on patient's age to complete this topic
--- OUTSIDE RECORDS SUMMARY | 2025-03-11 13:10 | XMS_ITS | Clinical Summary ---
Author Organization [facility] Address [address] [place] [address] Care Team Providers Care Flight Instructor Name Role Phone Unavailable Primary Care Provider [...] 1-dose 75+ series) 2021 INFLUENZA VACCINE (#1) 2024 Insurance MEDICARE PART A AND B [facility] [employer] PPO
--- OUTSIDE RECORDS SUMMARY | 2025-03-11 13:10 | XMS_ITS | Clinical Summary ---
Author Organization [facility] Address [address] [place] [address] Care Team Providers Care Chemistry Specialist Name Role Phone Som Kenny MD Primary Care Provider [phone] Source Comments [facility],non-owned Affiliates and Associated Physician Practices is amultiple site organization consisting of ambulatory clinics and hospital sitesin [place], [place], [place] and [place]. This disclosure is being madepursuant to the Care Everywhere program and may not contain all information available regarding this patient. Last updated 17.[facility] Allergies Active Allergy Reactions Criticality Noted Date Comments Aminoglycosides Rash High 04/20/2022 Mdrdtebl-Mafpzvxets-Ggweeuxqn Rash High 2022 Polymyxin B Rash High 04/20/2022 Medications * Be aware that medications may not be up to date on this document. Alwaysverify current medications with the patient. rosuvastatin (Crestor) 40 MG tablet Take 1 [...] drink, twice daily to promote wound healing. 3 Active apixaban (Eliquis) 5 MG tablet Take 1 (one) tablet by mouth 2 times daily Active furosemide (Lasix) 20 MG tablet Take 1 (one) tablet by mouth once daily Active clopidogrel (plaVIX) 75 MG tablet Take 1 (one) tablet by mouth once daily Active oxyCODONE-acetam inophen (Percocet) 5-325 MG tabletIndication s:PAD (peripheral artery disease) Take 1 (one) tablet by mouth every 4 hours as needed 12 tablet 3 Active gabapentin (Neurontin) 300 MG capsule Take 1 (one) capsule by mouth 3 times daily 3 Active carvedilol (Coreg) 3.125 MG tablet Take 1 (one) tablet by mouth 2 times daily with morning and evening meal 3 Active zinc oxide (Desitin) 40 % paste Apply to affected area as needed for Other 3 Active polyethylene glycol 3350 (Miralax) 17 g packet Take 17 (seventeen) g by mouth once daily 3 Active senna (Senokot Extra Strength) 17.2 MG Take 17.2 mg by mouth 2 times daily 3 Active potassium chloride ER (Klor-Con M) 20 MEQ tabletIndication s:for total of 80mEQ total Take 1 (one) tablet by mouth daily with breakfast Reasons: for total of 80mEQ total 3 Active cyclobenzaprine (Flexeril) 5 MG tablet Take 1 (one) tablet by mouth 3 times daily 3 Active Active Problems Problem Noted Date Diagnosed [...] and heating? Not hard at all 04/23/2022 [facility] [place] of Occupat ional Health - Occupational Stress [...] place to sleep or slept in a [facility] (including now)? No 04/23/2022 Sex and Gender Information Value Date Recorded Sex Assigned at Not on file Legal Sex Male 6:29 AM DEBT COLLECTOR Gender Identity Not on file Sexual Orientation Not on file Last Filed Vital Signs Vital Sign Reading Time Taken Comments Blood Pressure 104/64 04/27/2022 12:04 PM DEBT COLLECTOR Pulse 45 04/27/2022 12:04 PM DEBT COLLECTOR Temperature 36.9 C (98.4 F) 04/27/2022 12:04 PM DEBT COLLECTOR Respiratory Rate 18 04/27/2022 12:04 PM DEBT COLLECTOR Oxygen Saturation 97% 04/27/2022 12:04 PM DEBT COLLECTOR Inhaled Oxygen Concentration - - Weight 56.8 kg (125 lb 4.8 oz) 04/27/2022 10:00 AM DEBT COLLECTOR Height 182.9 cm (6') 04/27/2022 10:00 AM DEBT COLLECTOR Body Mass Index 16.99 04/27/2022 10:00 AM DEBT COLLECTOR Plan of Treatment Health Maintenance Due Date Last Done Comments MEDICARE AWV 12 MONTHS 1945 HEPATITIS C SCREENING 12/26/1963 DTAP/TDAP/TD VACCINES (1 - Tdap) 1965 PNEUMOCOCCAL VACCINE 50+ (1 of 2 - PCV) 1965 ZOSTER VACCINE (1 of 2) 1996 Respiratory Syncytial Virus (RSV) Vaccine Pt: or over 60 yrs (1 - 1-dose 75+ series) 2021 DEPRESSION SCREENING 03/25/2024 COVID-19 VACCINE ( season) 2024 01/04/2022, 07/05/2021, 01/01/2021, Additional history exists INFLUENZA VACCINE (#1) 2024 , 12/23/2020, 12/23/2014 HEPATITIS B VACCINE Aged Out No longe [...] on patient's age to complete this topic Insurance MEDICARE [employer] [facility] [facility] [place] [facility] Member Subscriber Plan / Payer (Ef fective for All Dates) Name:Porfirio Adams Relation to Subscriber:Self Name:Porfirio Adams Payer ID:Not on file Group ID:[id number] Type:[employer] Address: [address] [place] [address] Advance Directives * Full Code (Latest Code Status on File) Date Activated Date Inactivated Comments 04/20/2022 2:19 AM 04/27/2022 4:55 PM Care Teams Chemistry Specialist Relationship Specialty Start Date End Date Som Kenny MD [address] [place] [address] PCP - General 01/13/20
[2025-03-11] MEDS: DOXYCYCLINE IV 100 MG in SODIUM CHLORIDE 0.9% IV 100 ML IVPB (13:37)
[2025-03-11 14:20] LABS: Add Urine Microscopic? YES; Appearance Urine Turbid (Clear); Glucose Urine UA Negative (Negative); Leukocyte Esterase Ur 3+ LEU/UL (Negative); Need Manual Microscopic Reviewed; Nitrate Urine Negative (Negative); Specific Grav Ur 1.015 (1.001-1.035)
[2025-03-11] MEDS: SODIUM CHLORIDE 0.9% IV 500 ML IV CONT (16:52)
--- NOTE | 2025-03-11 21:39 | P.HP_ITS ---
H&P: HPI History of Present Illness Date/Time: 03/11/25 21:39 Chief Complaint: Shortness of breath Narrative: This is a 79-year-old male patient who has a history of CVA, hypertension, CHF, and history of ESBL bacteria. The patient came in today for a productive cough that has been ongoing for 1 week. He also has had generalized weakness. His white count is noted to be 14.2. His H&H is 12.5 and 40.0. H&H is at baseline. His glucose was found to be 166. Lactic was 3.7 and did come down to 1.4. C reactive protein 5.1. His urine is turbid with 2+ protein, 3+ leukocyte esterase, urine RBCs 11-20, urine wbc's greater than 100, and urine bacteria 4+. The patient was negative for influenza a, influenza B, RSV, and COVID. The patient was started on doxycycline and Rocephin. He was given 2 L of IV fluids. The patient was noted to be in atrial fibrillation with rapid ventricular response but then self converted to normal saline without any intervention. His O2 saturations were in the upper 80s on room air. Patient was then placed on oxygen at 3 L per nasal cannula. No intervention was performed for the atrial fibrillation. The patient is already on Xarelto. The patient also stated that he coughs so hard today that he fell and hit his head. Head CT and cervical spine CT was read as no acute intracranial findings. No acute fractures the C- spine. Incomplete seen dense probable pneumonia on the right side. Chest x-ray was read as left perihilar consolidative process possibly representing pneumonia. The patient is being admitted to observation status on the date of service of 03/11/2025. Review of Systems Constitutional: Constitutional: Reports as per HPI and Reports no additional constitutional complaints Eyes: Eyes: Reports as per HPI and Reports no additional eye complaints ENT: Reports no additional ear, nose, mouth, and throat complaints and Reports Normal hearing present Cardiovascular: Cardiovascular: Reports no additional cardiovascular complaints Respiratory: Respiratory: Reports as per HPI and Reports no additional respiratory complaints Gastrointestinal: Gastrointestinal: Reports as per HPI and Reports no additional gastrointestinal complaints Musculoskeletal: Musculoskeletal: Reports no additional musculoskeletal complaints Integumentary/Breasts: Skin/Breast: Reports system reviewed and no additional complaints, except as docu Neurologic: Reports no additional neurologic complaints and Reports Normal hearing present Psychiatric: Psychiatric: Reports no additional psychiatric complaints and Reports as per HPI Hematologic/Lymphatic: Hematologic/Lymphatic: Reports no additional hematologic/lymphatic complaints Allergic/Immunologic: Allergic/Immunologic: Reports no additional allergic/immunologic complaints [facility] Past Medical History Medical History (Updated 03/11/25 @ 23:45 by Pam Schwartz APRN) Pneumonia Mixed hyperlipidemia Urinary tract infection S/P angiogram of extremity C. difficile colitis ESBL (extended spectrum beta-lactamase) producing bacteria infection Aspiration into airway History of infection due to ESBL Klebsiella oxytoca Sepsis History of stroke with current residual effects CVA (cerebral vascular accident) Cough Acute CVA (cerebrovascular accident) Basal cell carcinoma (BCC) on face removed in 2012 Foot fracture, left DDD (degenerative disc disease) Cyst of right kidney Arthritis Enlarged prostate Renal disease HTN (hypertension) Hypercholesteremia CAD (coronary artery disease) Farsightedness Left ear hearing loss CHF (congestive heart failure) Myocardial infarction Surgical History Surgical History (Updated 03/11/25 @ 23:24 by Pam Schwartz APRN) History of facial surgery To remove a basal cell carcinoma. 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 Social History Social History (Updated 03/11/25 @ 23:25 by Pam Schwartz APRN) Social History: Patient lives at home with his , Loan, whom he designates as his surrogate MDM. His PCP is Dr. Kenny.2 children He served in the [employer] in [employer]. 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 Code status: DNR/DNI (per patient request) Smoking packs per day: 0.5 Smoking cigarettes per day: 10.0 Years smoked: 50 Smoking pack-years: 25.00 Smoking status: Current every day smoker Tobacco type: cigarettes Second hand tobacco smoke exposure: Yes Additional smoking assessment comments: pt states he is not interested in quitting right now Alcohol intake: former Substance use: never Substance use type: does not use Lack of Transportation: No Lack of Food: Never True Current Housing: I Have Housing Concerned About Future Housing: No Difficulty Paying Gas/Electric Bills: No Difficulty Paying for Meds: No Currently Unemployed: No Education: Bachelor's Degree Difficulty w/ Childcare or Family Care: No Living arrangements: with family Additional living arrangements comments: Gender identity (if verbalized by the patient): Male Sexual Orientation (if Verbalized by the Patient): Straight or Heterosexual Spiritual care concerns: No Agree to blood products: Yes Meds Home Medications and Allergies Home Medications ?Medication ?Instructions ?Recorded ?Confirmed ?Type clopidogrel 75 mg tablet (Plavix) 75 mg PO DAILY #90 t abs 11/20/21 10/09/24 Rx tamsulosin 0.4 mg capsule 0.4 mg PO BID #60 caps 06/0703/11/25 Rx rivaroxaban 2.5 mg tablet 2.5 mg PO BID 04/21/2303/11 History atorvastatin 40 mg tablet 40 mg PO DAILY #30 tabs 06/2410/09/24 Rx ciprofloxacin HCl 500 mg tablet 500 mg PO Q12H #60 tab s 07/18/23 03/11/25 Rx doxycycline hyclate 100 mg tablet 100 mg PO Q12H #60 t abs 07/18/23 03/11/25 Rx mirtazapine 30 mg tablet 30 mg PO HS #90 tabs 5 10/09/24 Rx doxycycline hyclate 100 mg capsule 100 mg PO Q12H Blad cindy cancer 03/11/25 03/11/25 History rosuvastatin 40 mg tablet 40 mg PO DAILY Bladder cance r 03/11/25 03/11/25 History Allergies Allergy/AdvReac Type Severity Reaction Status Date / Time Aminoglycosides Allergy Severe RASH Verified 03/11/25 23:35 bacitracin Allergy Severe Rash Verified 03/11/25 23:35 neomycin Allergy Severe RASH Verified 03/11/25 23:35 polymyxin B Allergy Severe Rash Verified 03/11/25 23:35 Vital Signs Vital Signs - 24 hr 03/11/25 11:35 03/11/25 11:39 03/11/25 11:52 Temperature 97.5 F L Pulse Rate 137 H 144 H Respiratory Rate 27 H Blood Pressure 104/62 Pulse Oximetry 89 L 97 Oxygen Delivery Room Air Nasal Cannula Oxygen Flow Rate 3 03/11/25 12:00 03/11/25 12:20 03/11/25 13:00 Temperature Pulse Rate 132 H 88 84 Respiratory Rate 20 20 21 H Blood Pressure 90/56 L 91/57 L 103/38 L Pulse Oximetry 97 99 100 Oxygen Delivery Oxygen Flow Rate 03/11/25 13:30 03/11/25 14:00 03/11/25 14:59 Temperature Pulse Rate 73 37 L 68 Respiratory Rate 22 H 20 20 Blood Pressure 104/42 L 107/33 L 112/48 L Pulse Oximetry 100 100 96 Oxygen Delivery Oxygen Flow Rate 03/11/25 16:30 03/11/25 18:00 03/11/25 19:30 Temperature Pulse Rate 65 63 67 Respiratory Rate 14 18 28 H Blood Pressure 111/56 L 112/44 L 146/85 H Pulse Oximetry 97 98 98 Oxygen Delivery Oxygen Flow Rate 03/11/25 21:00 Temperature Pulse Rate 82 Respiratory Rate 20 Blood Pressure 124/53 L Pulse Oximetry 97 Oxygen Delivery Oxygen Flow Rate Exam Const: General: cooperative, healthy appearing, comfortable, no acute distress, well developed, awake, Physically active, average body habitus and well nourished Nutritional Appearance: average body habitus and well nourished Orientation/consciousness: oriented to person, oriented to place, oriented to time and patient oriented x3 HENMT: Head: normal to inspection, No palpable skull fracture present, normocephalic, atraumatic and abrasion Ears: external ears normal Eyes: General: appearance normal, both eyes and all related structures Alignment and Position: alignment normal Periorbital: periorbital findings normal Eyelids: eyelids normal Neck: Neck: normal visual inspection, full ROM and no lymphadenopathy Chest: Chest palpation & inspection: normal inspection of the chest Resp: Effort & Inspection: normal respiratory effort Auscultation: wheezes Cardio: Palpation: normal PMI Rate: regular rate Rhythm: regular rhythm Heart sounds: S1 normal heart sound present and S2 normal heart sound present Peripheral pulses: Peripheral pulses 2+ throughout GI: Inspection: normal to inspection Percussion: Yes normal to percussion Back/Spine/Pelvis: Back: no CVA tenderness Skin: General skin exam: normal color Lesions: no lesions Rashes: no rashes Trauma: no lacerations or abrasions Wounds: no wounds Hair: normal Nails: normal Neuro: General: oriented to person, oriented to place, oriented to time and patient oriented x3 Cognition (Neuro): normal cognition Speech: normal speech Motor exam (neuro): 5/5 motor strength present throughout Sensory Exam: normal sensation Extrem: General: normal to inspection Right upper extremity: normal to inspection and shoulder/upper arm Left upper extremity: normal to inspection and shoulder/upper arm Right lower extremity: normal to inspection Other: Left [id number] amputation Psych: Appearance: grossly normal Mental Status: mental status grossly normal Speech and movement: Normal speech and movement present Affect: normal affect Attitude: cooperative Thought process: Normal thought process present Thought content: Yes Normal thought content present Other: Fair judgment insight Results Labs Labs: Short CBC 03/11/25 Range/Units 11:53 WBC 14.2 H (4.5-10.0) K/mm3 Hgb 12.5 L (14.0-18.0) g/dL Hct 40.0 L (42.0-52.0) % Plt Count 288 D (150-375) k/mm3 BMP 03/11/25 11:53 Sodium 138 Potassium 3.6 Chloride 108 H Carbon Dioxide 23 BUN 15 Creatinine 1.01 Glucose 166 H Calcium 9.0 Liver Function 03/11/25 Range/Units 11:53 Total Bilirubin 0.6 (0.2-1.3) mg/dL AST 25 (17-59) U/L ALT 24 (6-50) U/L Alkaline Phosphatase 85 (38-126) U/L Albumin 3.1 L (3.5-5.1) g/dL Urine 03/11/25 Range/Units 13:39 Urine Color Yellow (Yellow) Urine Appearance Turbid H (Clear) Urine pH 7.5 (5.0-9.0) Ur Specific [place] 1.015 (1.001-1.035) Urine Protein 2+ H (Negative) mg/dL Urine Glucose (UA) Negative (Negative) mg/dL ECG Interpretation: Test Date: 2025-03-11 12:22:23 Measurements Intervals [place] Rate: 89 P: 60 DE: 125 QRS: 3 QRSD: 109 T: 60 QT: 407 QTc: 497 Interpretive Statements SINUS RHYTHM WITH FREQUENT VENTRICULAR PREMATURE COMPLEXES INTRAVENTRICULAR CONDUCTION DELAY LEFT VENTRICULAR HYPERTROPHY AND ST-T CHANGE BORDERLINE ST-T WAVE ABNORMALITY- INF/HIGH LAT LEADS ABNORMAL ECG Compared to ECG 03/11/2025 12:05:21 Ventricular premature complex(es) now present Atrial fibrillation no longer present Electronically Signed On 03-11-2025 13:16:55 [employer] by Huang Walsh D.O Imaging Chest x-ray: Radiologist's impression: Impressions Chest X-Ray 03/11/25 12:38 IMPRESSION: 1. Left perihilar consolidative process possibly representing pneumonia. Finding should be followed radiographically until clear. Cervical Spine CT 03/11/25 14:33 IMPRESSION: HEAD: 1. No acute intracranial findings. C-SPINE: 1. No acute fracture. 2. Incompletely seen dense probable pneumonia right side. Chest x-ray today demonstrates worse pneumonia left lung. Recommend short interval follow-up chest x-rays and/or CT chest to exclude underlying lesion. Head CT 03/11/25 14:33 IMPRESSION: HEAD: 1. No acute intracranial findings. C-SPINE: 1. No acute fracture. 2. Incompletely seen dense probable pneumonia right side. Chest x-ray today demonstrates worse pneumonia left lung. Recommend short interval follow-up chest x-rays and/or CT chest to exclude underlying lesion. Quality VTE Prophylaxis VTE prophylaxis: pharmacologic ordered Assessment and Plan Assessment and plan (1) Pneumonia: Code(s): J18.9 - Pneumonia, unspecified organism Status: Acute Assessment and Plan: -Chest X-Ray 03/11/25 12:38 IMPRESSION: 1. Left perihilar consolidative process possibly representing pneumonia. Finding should be followed radiographically until clear. -the patient was started on Rocephin and doxycycline for community acquired pneumonia. However, patient was changed to meropenem for the possibility of drug resistant UTI. -blood and sputum cultures are pending. -nebulizer treatments added (2) Urinary tract infection: Code(s): N39.0 - Urinary tract infection, site not specified Status: Acute Assessment and Plan: -urine and blood cultures are pending. -patient has been on Rocephin for pneumonia. -in 2023 the patient had Klebsiella pneumoniae which was resistant to ceftriaxone and sensitive to meropenem therefore patient was switched to meropenem. (3) Atrial fibrillation with RVR: Code(s): I48.91 - Unspecified atrial fibrillation Status: Acute Assessment and Plan: -the patient initially was AFib RVR in the emergency room but then auto converted. -he is now in sinus rhythm with rate control. -he is already on Xarelto -echo ordered (4) HLD (hyperlipidemia): Code(s): E78.5 - Hyperlipidemia, unspecified Status: Acute Assessment and Plan: -continue with Crestor (5) Benign prostatic hyperplasia without lower urinary tract symptoms: Code(s): N40.0 - Benign prostatic hyperplasia without lower urinary tract symptoms Status: Acute Assessment and Plan: -Continue Flomax (6) CVA (cerebral vascular accident): Code(s): I63.9 - Cerebral infarction, unspecified Status: Acute Assessment and Plan: -no residual noted -is currently on Xarelto. -continue with Crestor (7) CHF (congestive heart failure): Code(s): I50.9 - Heart failure, unspecified Status: Acute Assessment and Plan: -echo from outside facility in 2020 was read as EF of 63% and impaired diastolic relaxation grade 1. -no recent echo seen
--- NOTE | 2025-03-11 22:43 | WPCEDHO ---
ED Hand Off Checklist All vitals saved: Y IV Site documented: Y All med administrations documented: Y Triage Note Triage Note Patient brought from home with 03/11/25 11:35 complaints of increasing shortness of breath x 1 week. A/O x4. Room O2 was 87% was given a DuoNeb which brought him up to 94 % although patient reporting no improvement in his SOB. Placed on 4l per EMS-patient is not on home O2. Monitor showing Afib for EMS -family reported that when patient was seen by PMD-no Afib 3 mths ago. Patient is alert and oriented on arrival without complaints of chest pain (does have Bypass history) Allergies Aminoglycosides Allergy (Severe, Verified 10/09/24 13:33) RASH bacitracin Allergy (Severe, Verified 10/09/24 13:33) Rash neomycin Allergy (Severe, Verified 10/09/24 13:33) RASH polymyxin B Allergy (Severe, Verified 10/09/24 13:33) Rash Family History (Last Reviewed 03/11/25 @ 21:41 by Pam Schwartz, TREMAINE) Father Congestive heart failure Mother Diabetes mellitus Cerebrovascular accident Sibling Diabetes mellitus Sibling No problems noted. Administered/Completed Medications Discontinued Medications Sodium Chloride (Normal Saline Iv) 1,000 mls @ 999 mls/hr IV CONT .Q1H1M STA Stop: 03/11/25 12:45 Last Infusion: 03/11/25 14:22 Dose: Infused Documented By: Admin: 03/11/25 12:53 Dose: 999 mls/hr Documented By: ERNESTINE Ceftriaxone Sodium 1 gm/ (Sodium Chloride) 50 mls @ 100 mls/hr IVPB ONCE STA Stop: 03/11/25 12:14 Last Infusion: 03/11/25 13:21 Dose: Infused Documented By: Admin: 03/11/25 12:51 Dose: 100 mls/hr Documented By: ERNESTINE Azithromycin 500 mg/ Sodium (Chloride) 250 mls @ 250 mls/hr IVPB ONCE STA Stop: 03/11/25 12:44 Last Admin: 03/11/25 13:57 Dose: Not Given Documented By: MEREDITH Non-Admin Reason: No Dose Required Amiodarone HCl/Dextrose (Nexterone 150 Mg/D5w 100 Ml) 150 mg in 100 mls @ 600 mls/hr IV CONT .Q10M STA Stop: 03/11/25 12:15 Last Admin: 03/11/25 13:56 Dose: Not Given Documented By: TLB Non-Admin Reason: No Dose Required Doxycycline Hyclate 100 mg/ (Sodium Chloride) 100 mls @ 100 mls/hr IVPB ONCE STA Stop: 03/11/25 13:07 Last Infusion: 03/11/25 14:46 Dose: Infused Documented By: Admin: 03/11/25 13:37 Dose: 100 mls/hr Documented By: ERNESTINE Sodium Chloride (Normal Saline Iv) 500 mls @ 500 mls/hr IV CONT .Q1H STA Stop: 03/11/25 17:43 Last Infusion: 03/11/25 17:58 Dose: Infused Documented By: Admin: 03/11/25 16:52 Dose: 500 mls/hr Documented By: TLB Interventions/Assessments Cardiac Monitoring Start: 03/11/25 11:27 Freq: Status: Active Protocol: Document 03/11/25 11:39 TLB (Rec: 03/11/25 11:39 TLB [id number]) Electronic Warfare Technical Assessment Electronic Warfare Technical Yes Applied Pulse Rate (60-100) 144 H IV / Saline Lock, Insert Start: 03/11/25 11:37 Freq: STAT Status: Active Protocol: Document 03/11/25 12:17 TLB (Rec: 03/11/25 12:18 TLB [id number]) IV Assessment Peripheral Access Left Antecubital IV Catheter Access Initiated Before Arrival Catheter Gauge 18 IV Care and WNL,Access Locked Maintenance Peripheral Access Right Forearm IV Catheter Access Initiated IV Insertion Date 03/11/25 IV Insertion Time 12:17 Catheter Gauge 18 IV Insertion 1 Attempts IV Site Assessment WNL IV Care and WNL,Access Locked Maintenance PA: Cardiovascular Assessment Start: 03/11/25 11:27 Freq: Status: Active Protocol: Document 03/11/25 11:53 TLB (Rec: 03/11/25 11:53 TLB [id number]) Cardiovascular Assessment Cardiovascular Dyspnea Symptoms Skin Description Normal Color Jugular Vein None Distention PA: Respiratory Assessment Start: 03/11/25 11:27 Freq: Status: Active Protocol: Document 03/11/25 11:53 TLB (Rec: 03/11/25 11:54 TLB [id number]) Respiratory Assessment Symptoms Congestion,Cough,Shortness of Breath at Rest,Shortness of Breath With Exertion Effort Short of Breath Pattern Regular Chest Expansion Symmetrical Adult Capillary Normal/Less than 2 Seconds Refill Right Throughout Lung Sounds Clear Left Throughout Phase Inspiratory & Expiratory Lung Sounds Diminished Cough Description Loose Last Vital Signs Temperature 97.5 F L 03/11/25 11:35 Pulse Rate 74 03/11/25 22:41 Respiratory Rate 20 03/11/25 22:41 Pulse Oximetry 98 03/11/25 22:41 Blood Pressure 141/56 H 03/11/25 22:41 Blood Pressure Mean 84 03/11/25 22:41 Blood Pressure Position Right Lateral 03/11/25 11:35 Oxygen Delivery Nasal Cannula 03/11/25 11:52 Oxygen Flow Rate 3 03/11/25 11:52 Weight 53.7 kg 03/11/25 11:35 Last Result - Abnormals Only WBC 14.2 K/mm3 (4.5-10.0) H 03/11/25 11:53 RBC 4.42 M/mm3 (4.6-6.20) L 03/11/25 11:53 Hgb 12.5 g/dL (14.0-18.0) L 03/11/25 11:53 Hct 40.0 % (42.0-52.0) L 03/11/25 11:53 MCHC 31.3 g/dl (32-36) L 03/11/25 11:53 RDW 16.1 % (11.5-14.5) H 03/11/25 11:53 Immature Gran % (Auto) 0.6 % (0-0.5) H 03/11/25 11:53 Neut % (Auto) 90.9 % (45.5-73.1) H 03/11/25 11:53 Lymph % (Auto) 3.5 % (18.3-44.2) L 03/11/25 11:53 Lymph # (Auto) 0.50 K/mm3 (0.9-3.2) L 03/11/25 11:53 Abs Immat Gran (auto) 0.09 K/mm3 (0.00-0.031) H 03/11/25 11:53 Absolute Neuts (auto) 12.9 K/mm3 (1.3-6.7) H 03/11/25 11:53 PT 17.4 Seconds (11.1-14.7) H 03/11/25 11:53 Chloride 108 mmol/L (98-107) H 03/11/25 11:53 Glucose 166 mg/dL (65-110) H 03/11/25 11:53 Lactic Acid 3.7 mmol/L (0.7-2.0) H 03/11/25 11:53 C-Reactive Protein 5.1 mg/dL (<1.0) H 03/11/25 11:53 Albumin 3.1 g/dL (3.5-5.1) L 03/11/25 11:53 Urine Appearance Turbid (Clear) H 03/11/25 13:39 Urine Protein 2+ mg/dL (Negative) H 03/11/25 13:39 Leukocyte Esterase Rfl 3+ GERTRUDIS/UL (Negative) H 03/11/25 13:39 Urine RBC 11-20 /hpf (0-2) H 03/11/25 13:39 Urine WBC >100 /hpf (0-3) H 03/11/25 13:39 Most Recent Suicide Severity Rating Suicide Severity Rating NO RISK INDICATED 03/11/25 11:35
--- NOTE | 2025-03-11 23:26 | ADMGEN ---
This patient, Porfirio Pabon, was admitted to IMU Room 205-01. Patient/family oriented to hospital policies and general routines including ID bracelet, bed and alarms, visiting hours, pain management, procedures, bathroom and other care routines, personal items, smoking policy, room service/diet, and visiting hours. Information on how to activate the Rapid Response Team has been discussed. Patient/Family are encouraged to report perceived risks to care and to ask questions if they do not understand what they are told or what they should do.
[2025-03-12] VITALS (27 sets, daily range): BP systolic 106–152; BP diastolic 33–85; PULSE 64–92; RESP 15–36; TEMP 36.6–38.2; O2SAT 93–100; BMI 14.9
--- NOTE | 2025-03-12 | ECHO_ITS ---
Patient Info Name: Porfirio Pabon Age: 79 years : 1945 Gender: Male Ht: 72 in Wt: 109 lbs BSA: 1.56 m2 HR: 65 bpm BP: 117 / 33 mmHg Heart Rhythm: Atrial Fibrillation Technical Quality: Good Exam Date: 03/12/2025 9:19 AM Patient Status: I Admit Date: 03/11/2025 Exam Type: CA echo doppler color flow Complete two-dimensional, color flow and Doppler transthoracic echocardiogram is performed. Staff Referring Physician: Meño Lazaro MD Three Dimensional Map Modeler: Primitivo Medeiros III Attending Provider: Meño Lazaro MD Summary 1. Complete two-dimensional, color flow and Doppler transthoracic echocardiogram is performed. 2. Left ventricular systolic function is mildly reduced, estimated at 35-40. 3. There is mildly increased left ventricular wall thickness. 4. Left ventricular chamber dimension is mildly enlarged. 5. The left ventricular diastolic function is abnormal. 6. Left atrial chamber dimension is mildly enlarged. 7. There is mild pulmonic regurgitation. Left Ventricle Left ventricular chamber dimension is mildly enlarged. Left ventricular systolic function is mildly reduced, estimated at 35-40. There is mildly increased left ventricular wall thickness. Left ventricular septal wall motion is normal. The left ventricular diastolic function is abnormal. Right Ventricle Right ventricular chamber dimension is normal. Right ventricular systolic function is normal. Left Atria Left atrial chamber dimension is mildly enlarged. Right Atria Right atrial chamber dimension is normal. Aortic Valve The aortic valve is trileaflet. There is no aortic valve sclerosis. There is no aortic valve stenosis. There is no aortic valve regurgitation. Pulmonic Valve The pulmonic valve is normal. There is no pulmonic valve stenosis. There is mild pulmonic regurgitation. Mitral Valve The mitral valve has normal leaflets. There is no mitral valve stenosis. There is mild mitral valve regurgitation. Tricuspid Valve The tricuspid valve leaflets are normal. There is no significant tricuspid valve stenosis. There is no tricuspid valve regurgitation. Pericardium/Pleural The pericardium appears normal. There is no pericardial effusion. Inferior Vena Cava Normal inferior vena cava with >50% collapse upon inspiration consistent with normal right atrial pressure, 5 mmHg. Aorta The aortic root size at the sinus of Valsalva is normal. The prox ascending aorta size is normal. Left Ventricular Outflow Tract Name Value Normal LVOT 2D LVOT Diameter 2.6 cm LVOT Doppler LVOT Peak Velocity 85 cm/s LVOT Peak Gradient 3 mmHg LVOT Mean Gradient 2 mmHg LVOT VTI 17 cm LVOT VTI/AV VTI Ratio 0.8 LVOT Stroke Volume 87 ml LVOT CO 7.3 l/min LVOT CI 4.7 l/min/m2 Pulmonic Valve Name Value Normal PV Doppler PV Peak Velocity 92 cm/s PV Peak Gradient 3 mmHg PV Mean Gradient 2 mmHg PV Regurgitation Doppler OR Peak End Diastolic Velocity 138 cm/s Mitral Valve Name Value Normal MV Doppler MV Peak Gradient 2 mmHg MV Mean Gradient 1 mmHg MV Area (Cont Eq VTI) 5.5 cm2 MV Regurgitation Doppler MR Peak Gradient 100 mmHg MV Diastolic Function MV E Peak Velocity 55 cm/s MV A Peak Velocity 69 cm/s MV E/A 0.8 MV Decel Time (PW) 252 ms MV Annular TDI MV E/e' (Septal) 10.8 MV E/e' (Lateral) 6.6 MV E/e' (Average) 8.7 Tricuspid Valve Name Value Normal Estimated PAP/RSVP RA Pressure 5 mmHg <=5 TV Annular TDI TV Lateral Melba s' Velocity 10.2 cm/s >=9.5 Aortic Valve Name Value Normal AV Doppler AV Peak Velocity 118 cm/s AV Peak Gradient 6 mmHg AV Mean Gradient 3 mmHg AV VTI 21 cm AV Area (Cont Eq VTI) 4.2 cm2 >=3.0 AV Area (Cont Eq Dread) 3.7 cm2 AV DI (Dread) 0.72 AV Regurgitation 2D LVOT Area 5.2 cm2 Ventricles Name Value Normal LV Dimensions 2D/MM IVS Diastolic Thickness (2D) 1.3 cm 0.6-1.0 LVID Diastole (2D) 5.0 cm 4.2-5.8 LVIW Diastolic Thickness (2D) 1.0 cm 0.6-1.0 LVID Systole (2D) 4.2 cm 2.5-4.0 LVOT Diameter 2.6 cm LV Mass (2D Cubed) 221.81 g 88.00-224.00 LV Mass Index (2D Cubed) 142 g/m2 49-115 Relative Wall Thickness (2D) 0.42 <=0.42 LV Fractional Shortening/Ejection Fraction 2D/MM LV Fractional Shortening (2D) 15 % 25-43 LV EF (2D Teichholz) 32 % LV Diastolic Volume (4C MOD) 126 ml LV EF (4C MOD) 29 % LV Diastolic Volume (2C MOD) 155 ml LV EF (2C MOD) 34 % LV Diastolic Volume (BP MOD) 140 ml 62-150 LV Diastolic Volume Index (BP MOD) 90 ml/m2 34-74 LV Systolic Volume (BP MOD) 101 ml 21-61 LV Systolic Volume Index (BP MOD) 65 ml/m2 11-31 LV EF (BP MOD) 27 % 52-72 LV Diastolic Length (4C) 8.7 cm LV Systolic Length (4C) 7.2 cm LV Stroke Volume (4C MOD) 36 ml Atria Name Value Normal LA Dimensions LA Volume (4C A-L) 45 ml LA Volume (BP A-L) 65 ml RA Dimensions RA Systolic Major [place] Length (4C) 4.3 cm 2.1-2.7 RA Area (4C) 14.8 cm2 <=18.0 Report Signatures
[2025-03-12] MEDS: IPRATROPIUM BR 0.02% INH SOLN 0.5 MG/2.5 ML VIAL INHALATION ×4 (01:13→21:17)
[2025-03-12] MEDS: RIVAROXABAN 2.5 MG TABLET PO ×3 (01:14→20:53)
[2025-03-12] MEDS: TAMSULOSIN HCL 0.4 MG CAPSULE PO ×3 (01:14→16:00)
[2025-03-12] MEDS: MEROPENEM 1 GM in SODIUM CHLORIDE 0.9% IV 100 ML 200 ML IVPB ×3 (01:17→23:11)
[2025-03-12] MEDS: SODIUM CHLORIDE 0.9% IV 1,000 ML 75 ML IV CONT (01:18)
[2025-03-12] MEDS: ROSUVASTATIN 20 MG TABLET 40 MG PO (10:30)
[2025-03-12 10:36] LABS: MRSA (PCR) NOT DETECTED (NOT DETECTE)
--- NOTE | 2025-03-12 13:51 | PM.IMPN2 ---
Assessment and Plan Assessment and Plan (1) Pneumonia: Code(s): J18.9 - Pneumonia, unspecified organism Status: Acute Assessment and Plan: Patient presents with shortness of breath and cough and found to have sepsis with tachycardia, tachypnea, hypoxia, leukocytosis and lactic acidosis. CXR showing left perihilar consolidative process possibly representing pneumonia. Finding should be followed radiographically until clear. The patient was started on Rocephin and doxycycline for community acquired pneumonia. However, patient was changed to meropenem for the possibility of drug resistant UTI. Blood and sputum cultures are pending. MRSA nasal swab negative. Nebulizer treatments added He is feeling better. Concern for malignancy given the weight loss so will check CT chest. Add doxy (2) Sepsis: Qualifiers: Acute respiratory failure type: with hypoxia Sepsis acute organ dysfunction status: with acute organ dysfunction Sepsis type: sepsis due to unspecified organism Severe sepsis acute organ dysfunction type: acute respiratory failure Severe sepsis shock status: without septic shock Qualified Code(s): A41.9 - Sepsis, unspecified organism; R65.20 - Severe sepsis without septic shock; J96.01 - Acute respiratory failure with hypoxia Code(s): A41.9 - Sepsis, unspecified organism Status: Acute Assessment and Plan: As above (3) Urinary tract infection: Code(s): N39.0 - Urinary tract infection, site not specified Status: Acute Assessment and Plan: Urine and blood cultures are pending. Patient has been on Rocephin for pneumonia. In 2023 the patient had Klebsiella pneumoniae which was resistant to ceftriaxone and sensitive to meropenem therefore patient was switched to meropenem. (4) Atrial fibrillation with RVR: Code(s): I48.91 - Unspecified atrial fibrillation Status: Acute Assessment and Plan: The patient initially was AFib RVR in the emergency room but has auto converted. He is now in sinus rhythm with rate control. Already on Xarelto Echo ordered StopIV fluids. Add metoprolol (5) HLD (hyperlipidemia): Code(s): E78.5 - Hyperlipidemia, unspecified Status: Acute Assessment and Plan: Continue with Crestor (6) Benign prostatic hyperplasia without lower urinary tract symptoms: Code(s): N40.0 - Benign prostatic hyperplasia without lower urinary tract symptoms Status: Acute Assessment and Plan: Continue Flomax (7) CVA (cerebral vascular accident): Code(s): I63.9 - Cerebral infarction, unspecified Status: Acute Assessment and Plan: No residual noted Is currently on Xarelto. Continue with Crestor (8) CHF (congestive heart failure): Code(s): I50.9 - Heart failure, unspecified Status: Acute Assessment and Plan: Echo from outside facility in 2020 was read as EF of 63% and impaired diastolic relaxation grade 1. -no recent echo seen Echo ordered Plan DVT Prophylaxis -Xarelto Code status -DNR Subjective Date/time seen: 03/12/25 13:51 Interval history: 79yod male with history of CVA, HTN, CHF, and history of ESBL bacteria here for a productive cough x 1 week. and generalized weakness. Patient slept well. No chest pain. His cough is productive clear sputum. Complains of shortness of breath. No nausea or vomiting. Eating okay. No odynophagia or dysphagia. He has had weight loss recently although cannot quantify. Exam Narrative: AF 98.2 120/85 84 24 94% 2L Gen - NARD Chest -bibasilar crackles. CV -irregularly irregular. S1-S2. Telemetry showing sinus rhythm with sinus arrhythmia and PVCs. Abd -soft. Scaphoid. Positive bowel sounds. Ext -no right pedal edema. Left [id number] amputation Neuro - Alert and oriented x4. Nonfocal exam. Psych - Nml mood and affect Skin - Warm and dry Objective Data Vital Signs Vital Signs: Vital Signs - 24 hr 03/11/25 14:00 03/11/25 14:59 03/11/25 16:30 Temperature Pulse Rate 37 L 68 65 Respiratory Rate 20 20 14 Blood Pressure 107/33 L 112/48 L 111/56 L Pulse Oximetry 100 96 97 Oxygen Delivery Oxygen Flow Rate 03/11/25 18:00 03/11/25 19:30 03/11/25 21:00 Temperature Pulse Rate 63 67 82 Respiratory Rate 18 28 H 20 Blood Pressure 112/44 L 146/85 H 124/53 L Pulse Oximetry 98 98 97 Oxygen Delivery Oxygen Flow Rate 03/11/25 22:41 03/11/25 23:15 03/12/25 00:00 Temperature 98.2 F Pulse Rate 74 73 Respiratory Rate 20 20 Blood Pressure 141/56 H 136/84 Pulse Oximetry 98 93 93 Oxygen Delivery Nasal Cannula Oxygen Flow Rate 2 12/19/25 00:00 03/12/25 01:20 03/12/25 01:21 Temperature Pulse Rate 64 70 Respiratory Rate 20 Blood Pressure Pulse Oximetry 94 Oxygen Delivery Nasal Cannula Oxygen Flow Rate 3 03/12/25 01:27 03/12/25 02:00 03/12/25 04:00 Temperature 98.7 F Pulse Rate 76 69 69 Respiratory Rate 20 18 Blood Pressure 117/33 L Pulse Oximetry 100 Oxygen Delivery Oxygen Flow Rate 03/12/25 04:00 03/12/25 04:00 03/12/25 06:00 Temperature Pulse Rate 64 65 Respiratory Rate Blood Pressure Pulse Oximetry 100 Oxygen Delivery Nasal Cannula Oxygen Flow Rate 2 03/12/25 07:40 03/12/25 08:00 03/12/25 08:00 Temperature 97.8 F Pulse Rate 76 81 Respiratory Rate 36 H Blood Pressure 152/44 H Pulse Oximetry 94 94 Oxygen Delivery Nasal Cannula Oxygen Flow Rate 2 03/12/25 08:16 03/12/25 08:16 03/12/25 08:29 Temperature Pulse Rate 87 84 84 Respiratory Rate 18 18 Blood Pressure Pulse Oximetry 94 Oxygen Delivery Nasal Cannula Oxygen Flow Rate 3 03/12/25 10:00 03/12/25 11:27 03/12/25 12:00 Temperature 98.2 F Pulse Rate 69 73 Respiratory Rate 24 H Blood Pressure 120/85 Pulse Oximetry 94 94 Oxygen Delivery Nasal Cannula Oxygen Flow Rate 2 03/12/25 12:00 Temperature Pulse Rate 84 Respiratory Rate Blood Pressure Pulse Oximetry Oxygen Delivery Oxygen Flow Rate Intake/Output Intake/Output: Intake & Output 03/09/25 03/10/25 03/11/25 03/12/25 23:59 23:59 23:59 23:59 Intake Total 1650 576 Output Total 200 700 Balance 1450 -124 Meds/Results Medications: Active Medications Generic Name Dose Route Start Last Admin Trade Name Freq PRN Reason Stop Dose Admin Meropenem 1 gm/ Sodium 100 mls @ 200 mls/hr 03/12/25 00:00 03/12/25 12:29 Chloride IVPB 200 mls/hr Q12H MANOLO Administration Sodium Chloride 1,000 mls @ 75 mls/hr 03/12/25 00:05 03/12/25 01:18 Normal Saline Iv IV CONT 75 mls/hr .[id number] MANOLO Administration Ipratropium [place] 0.5 mg 03/12/25 02:00 03/12/25 08:12 Ipratropium Br 0.02% Inh Soln 0.5 Mg/2.5 Ml Vial INHALATION 0.5 mg Q6HRT MANOLO Administration Levalbuterol HCl 0.63 mg 03/12/25 02:00 03/12/25 08:12 Levalbuterol Neb 1.25 Mg/3 Ml INHALATION 0.63 mg Q6HRT MANOLO Administration Perflutren Lipid Microsphere 0 ml 03/12/25 00:02 Perflutren Lipid Microspheres 1.5 Ml Vial Diluted To 10 Ml Total Volume IV PUSH 03/15/25 00:02 ONCE PRN adequate visualization Protocol Rivaroxaban 2.5 mg 03/11/25 23:20 03/12/25 10:30 Rivaroxaban 2.5 Mg Tablet PO 2.5 mg Q12HR MANOLO Administration Rosuvastatin Calcium 40 mg 03/12/25 09:00 03/12/25 10:30 Rosuvastatin 20 Mg Tablet PO 40 mg DAILY MANOLO Administration Tamsulosin HCl 0.4 mg 03/11/25 23:20 03/12/25 10:30 Tamsulosin Hcl 0.4 Mg Capsule PO 0.4 mg BID MANOLO Administration Radiology Results: ITS Impressions Chest X-Ray 03/11/25 12:38 IMPRESSION: 1. Left perihilar consolidative process possibly representing pneumonia. Finding should be followed radiographically until clear. Cervical Spine CT 03/11/25 14:33 IMPRESSION: HEAD: 1. No acute intracranial findings. C-SPINE: 1. No acute fracture. 2. Incompletely seen dense probable pneumonia right side. Chest x-ray today demonstrates worse pneumonia left lung. Recommend short interval follow-up chest x-rays and/or CT chest to exclude underlying lesion. Head CT 03/11/25 14:33 IMPRESSION: HEAD: 1. No acute intracranial findings. C-SPINE: 1. No acute fracture. 2. Incompletely seen dense probable pneumonia right side. Chest x-ray today demonstrates worse pneumonia left lung. Recommend short interval follow-up chest x-rays and/or CT chest to exclude underlying lesion. Labs Labs: Laboratory Results - last 24 hr 03/11/25 03/11/25 03/12/25 13:39 14:51 09:20 Lactic Acid 1.4 Urine Color Yellow Urine Appearance Turbid H Urine pH 7.5 Ur Specific [place] 1.015 Urine Protein 2+ H Urine Glucose (UA) Negative Urine Ketones Negative Ur Blood (Man) Negative Urine Nitrate Negative Urine Bilirubin Negative Urine Urobilinogen 1.0 Add Ur Microanalysis Reviewed Leukocyte Esterase Rfl 3+ H Urine RBC 11-20 H Urine WBC >100 H Ur Squamous Epith Cells None seen Urine Bacteria 4+ Urine Casts 6-10 Nasal MRSA (PCR) Not detected
[2025-03-12] MEDS: METOPROLOL TARTRATE 12.5 MG TABLET PO (20:53)
[2025-03-12] MEDS: DOXYCYCLINE HYCLATE 100 MG TABLET PO (20:53)
[2025-03-12] MEDS: ACETAMINOPHEN 325 MG TABLET 650 MG PO (23:29)
[2025-03-13] VITALS (19 sets, daily range): BP systolic 113–147; BP diastolic 49–65; PULSE 67–150; RESP 16–24; TEMP 36.4–37; O2SAT 93–100
--- NOTE | 2025-03-13 04:15 | PCRCNOTE ---
Patient refused 0200 updraft treatment. Treatment to resume at 0800.
[2025-03-13 04:30] LABS: Hematocrit 33.9 % (42.0-52.0); Hemoglobin 10.7 g/dL (14.0-18.0); Mean Corpuscular HGB Conc 31.6 g/dl (32-36); Mean Corpuscular Hemoglobin 28.6 pg (26-34); Mean Corpuscular Volume 90.6 fl (80-100); Platelet Count Result 242 k/mm3 (150-375); Red Blood Count 3.74 M/mm3 (4.6-6.20); White Blood Count 12.0 K/mm3 (4.5-10.0)
[2025-03-13 04:45] LABS: Albumin Level 2.5 g/dL (3.5-5.1); Anion Gap 3 mmol/L (4-12); Blood Urea Nitrogen 15 mg/dL (9-20); Calcium 8.3 mg/dL (8.4-10.2); Carbon Dioxide 20 mmol/L (22-30); Chloride 114 mmol/L (98-107); Estimated CRCL calculation 47 ml/min; Estimated Glomerular Filt Rate > 60; Glucose 113 mg/dL (65-110); Magnesium 1.9 mg/dL (1.6-2.3); Potassium 3.6 mmol/L (3.4-5.0); Sodium 137 mmol/L (137-145)
[2025-03-13 05:55] LABS: Vitamin B12 254.0 pg/mL (239-931)
--- NOTE | 2025-03-13 06:30 | ECG_ITS ---
Test Date: 2025-03-13 06:38:19 Measurements Intervals [place] Rate: 126 P: 0 OR: 0 QRS: -22 QRSD: 114 T: 86 QT: 329 QTc: 477 Interpretive Statements ATRIAL FIBRILLATION WITH RAPID VENTRICULAR RESPONSE WITH ABERRANT CONDUCTION OR VENTRICULAR PREMATURE COMPLEXES INTRAVENTRICULAR CONDUCTION DELAY LEFT VENTRICULAR HYPERTROPHY WITH ST-T CHANGE MINIMAL Q WAVES- LAT/HIGH LAT LEADS BORDERLINE ST-T WAVE ABNORMALITY- HIGH LATERAL LEADS BASELINE ARTIFACT- II, III, AVR, AVL, AVF, V1 ABNORMAL ECG Compared to ECG 03/11/2025 12:22:23 SINUS RHYTHM NO LONGER PRESENT Electronically Signed On 03-13-2025 09:17:01 [employer] by Huang Walsh D.O.
[2025-03-13] MEDS: METOPROLOL TARTRATE 12.5 MG TABLET PO ×2 (06:41→21:23)
[2025-03-13] MEDS: IPRATROPIUM BR 0.02% INH SOLN 0.5 MG/2.5 ML VIAL INHALATION ×3 (08:17→20:00)
[2025-03-13] MEDS: TAMSULOSIN HCL 0.4 MG CAPSULE PO ×2 (08:25→17:30)
[2025-03-13] MEDS: ROSUVASTATIN 20 MG TABLET 40 MG PO (08:25)
[2025-03-13] MEDS: RIVAROXABAN 2.5 MG TABLET PO (08:25)
[2025-03-13] MEDS: DOXYCYCLINE HYCLATE 100 MG TABLET PO ×2 (08:25→21:23)
[2025-03-13] MEDS: MEROPENEM 1 GM in SODIUM CHLORIDE 0.9% IV 100 ML 200 ML IVPB (13:32)
--- NOTE | 2025-03-13 17:20 | P.PNIM_ITS ---
Assessment and Plan Assessment and Plan (1) Pneumonia: Code(s): J18.9 - Pneumonia, unspecified organism Status: Acute Assessment and Plan: Patient presents with shortness of breath and cough and found to have sepsis with tachycardia, tachypnea, hypoxia, leukocytosis and lactic acidosis. CXR showing left perihilar consolidative process possibly representing pneumonia. Finding should be followed radiographically until clear. The patient was started on Rocephin and doxycycline for community acquired pneumonia. However, patient was changed to meropenem for the possibility of drug resistant UTI. MRSA nasal swab negative. Blood culture no growth to date. Concern for malignancy given the weight loss and known right upper lobe lung mass so CT ordered. CT of the chest shows increased right upper lobe mass now measuring 4.7 cm with several smaller adjacent spiculated nodules concerning for malignancy. There is also left perihilar airspace opacity extending into the upper and lower lobes with air bronchograms. Patient has had a known right upper lung mass for many years but has declined evaluation. Spoke with patient and family in the room about findings and direction on how to proceed. Offered pulmonary consult for possible bronchoscopy versus continue routine care. Explained that findings are concerning for malignancy but this has not been a proven diagnosis since no biopsy has been obtained. Patient wishes to proceed with pulmonary consult and possible bronchoscopy. WBC trending down. Stable on 2L O2. Consult Pulmonary. Add CPT. Continue nebulizer treatments. Continue IV antibiotics. (2) Sepsis: Qualifiers: Acute respiratory failure type: with hypoxia Sepsis acute organ dysfunction status: with acute organ dysfunction Sepsis type: sepsis due to unspecified organism Severe sepsis acute organ dysfunction type: acute respiratory failure Severe sepsis shock status: without septic shock Qualified Code(s): A41.9 - Sepsis, unspecified organism; R65.20 - Severe sepsis without septic shock; J96.01 - Acute respiratory failure with hypoxia Code(s): A41.9 - Sepsis, unspecified organism Status: Acute Assessment and Plan: As above (3) Pulmonary mass: Code(s): R91.8 - Other nonspecific abnormal finding of lung field Status: Acute Assessment and Plan: CT chest in September 2022 showing RUL mass measuring 0.9cm. CT of the chest here shows increased right upper lobe mass now measuring 4.7 cm with several smaller adjacent spiculated nodules concerning for malignancy. May also have left perihilar involvement as well. Patient agreeable for evaluation. Pulm consult (4) Urinary tract infection: Code(s): N39.0 - Urinary tract infection, site not specified Status: Acute Assessment and Plan: Urine and blood cultures are pending. Patient was on Rocephin for pneumonia. In 2023 the patient had Klebsiella pneumoniae which was resistant to ceftriaxone and sensitive to meropenem therefore patient was switched to meropenem. Urine culture growing Gram-negative bacilli (5) Atrial fibrillation with RVR: Code(s): I48.91 - Unspecified atrial fibrillation Status: Acute Assessment and Plan: The patient initially was AFib RVR in the emergency room but has auto converted. Echo showing EF 35-40%, diastolic dysfunction. Metoprolol started. He is maintaining sinus rhythm He was resumed on Xarelto but will hold for possible bronchoscopy Monitor on tele (6) CHF (congestive heart failure): Code(s): I50.9 - Heart failure, unspecified Status: Acute Assessment and Plan: Echo from outside facility in 2020 was read as EF of 63% and impaired diastolic relaxation grade 1. Echo here showing EF 35-40%. Continue metoprolol but convert to Toprol XL at discharge. Add Entresto. Consider spironolactone. No empagliflozin given current urinary infection (7) CVA (cerebral vascular accident): Code(s): I63.9 - Cerebral infarction, unspecified Status: Acute Assessment and Plan: No residual issues. Currently on Xarelto. Continue with Crestor. Hold Xarelto (8) HLD (hyperlipidemia): Code(s): E78.5 - Hyperlipidemia, unspecified Status: Acute Assessment and Plan: Continue with Crestor (9) Benign prostatic hyperplasia without lower urinary tract symptoms: Code(s): N40.0 - Benign prostatic hyperplasia without lower urinary tract symptoms Status: Acute Assessment and Plan: Continue Flomax Plan B12 Deficiency - replace. DVT Prophylaxis -Xarelto, SCDs Code status -DNR Subjective Date/time seen: 03/13/25 17:20 Interval history: 79yod male with history of CVA, HTN, CHF, and history of ESBL bacteria here for a productive cough x 1 week. and generalized weakness. Up to bedside commode. No CP. +productive cough. Exam Narrative: AF 98.3 140/50 86 20 97% ra Gen - NARD Chest - decreased BS in mid and lower left lung field. CV - RRR. S1-S2. Telemetry showing mostly normal sinus rhythm but with runs of possibly AFib Abd -soft. Scaphoid. Positive bowel sounds. Ext -no right pedal edema. Left [id number] amputation. Right groin scarring noted Psych - Nml mood and affect Skin - Warm and dry Objective Data Vital Signs Vital Signs: Vital Signs - 24 hr 03/12/25 18:00 03/12/25 20:00 03/12/25 20:00 Temperature 98.6 F Pulse Rate 88 91 Respiratory Rate 18 Blood Pressure 144/54 H Pulse Oximetry 99 99 Oxygen Delivery Nasal Cannula Oxygen Flow Rate 2 03/12/25 20:00 03/12/25 20:53 03/12/25 21:17 Temperature Pulse Rate 88 90 90 Respiratory Rate 24 H Blood Pressure Pulse Oximetry Oxygen Delivery Oxygen Flow Rate 03/12/25 21:21 03/12/25 21:27 03/12/25 22:00 Temperature Pulse Rate 90 92 91 Respiratory Rate 20 Blood Pressure Pulse Oximetry 94 Oxygen Delivery Nasal Cannula Oxygen Flow Rate 2 03/12/25 23:47 03/13/25 00:00 03/13/25 00:00 Temperature 100.8 F H Pulse Rate 75 78 Respiratory Rate 15 Blood Pressure 106/54 L Pulse Oximetry 98 98 Oxygen Delivery Nasal Cannula Oxygen Flow Rate 2 03/13/25 02:00 03/13/25 04:00 03/13/25 04:00 Temperature 98 F Pulse Rate 68 67 Respiratory Rate 16 Blood Pressure 113/49 L Pulse Oximetry 95 100 Oxygen Delivery Nasal Cannula Oxygen Flow Rate 2 03/13/25 04:00 03/13/25 06:41 03/13/25 08:00 Temperature 97.5 F L Pulse Rate 84 150 H 68 Respiratory Rate 20 Blood Pressure 119/51 L Pulse Oximetry 93 Oxygen Delivery Oxygen Flow Rate 03/13/25 08:18 03/13/25 08:18 03/13/25 08:26 Temperature Pulse Rate 71 77 Respiratory Rate 20 20 Blood Pressure Pulse Oximetry 94 Oxygen Delivery Room Air Oxygen Flow Rate 03/13/25 12:00 03/13/25 13:53 03/13/25 14:02 Temperature 98.2 F Pulse Rate 89 87 88 Respiratory Rate 18 20 20 Blood Pressure 147/65 H Pulse Oximetry 94 Oxygen Delivery Oxygen Flow Rate 03/13/25 16:00 Temperature 98.3 F Pulse Rate 86 Respiratory Rate 20 Blood Pressure 140/50 L Pulse Oximetry 97 Oxygen Delivery Oxygen Flow Rate Intake/Output Intake/Output: Intake & Output 03/10/25 03/11/25 03/12/25 03/13/25 23:59 23:59 23:59 23:59 Intake Total 1650 1146 670 Output Total 200 900 350 Balance 1450 246 320 Meds/Results Medications: Active Medications Generic Name Dose Route Start Last Admin Trade Name Freq PRN Reason Stop Dose Admin Acetaminophen 650 mg 03/12/25 23:24 03/12/25 23:29 Acetaminophen 325 Mg Tablet PO 650 mg Q6H PRN Administration Mild Pain (1-3) or Fever Doxycycline Hyclate 100 mg 03/12/25 21:00 03/13/25 08:25 Doxycycline Hyclate 100 Mg Tablet PO 03/17/25 09:01 100 mg Q12HR MANOLO Administration Meropenem 1 gm/ Sodium 100 mls @ 200 mls/hr 03/12/25 00:00 03/13/25 13:32 Chloride IVPB 200 mls/hr Q12H MANOLO Administration Ipratropium [place] 0.5 mg 03/12/25 02:00 03/13/25 13:53 Ipratropium Br 0.02% Inh Soln 0.5 Mg/2.5 Ml Vial INHALATION 0.5 mg Q6HRT MANOLO Administration Levalbuterol HCl 0.63 mg 03/12/25 02:00 03/13/25 13:52 Levalbuterol Neb 1.25 Mg/3 Ml INHALATION 0.63 mg Q6HRT MANOLO Administration Metoprolol Tartrate 12.5 mg 03/12/25 21:00 03/13/25 06:41 Metoprolol Tartrate 12.5 Mg Tablet PO 12.5 mg Q12HR MANOLO Administration Perflutren Lipid Microsphere 0 ml 03/12/25 00:02 Perflutren Lipid Microspheres 1.5 Ml Vial Diluted To 10 Ml Total Volume IV PUSH 03/15/25 00:02 ONCE PRN adequate visualization Protocol Rivaroxaban 2.5 mg 03/11/25 23:20 03/13/25 08:25 Rivaroxaban 2.5 Mg Tablet PO 2.5 mg Q12HR MANOLO Administration Rosuvastatin Calcium 40 mg 03/12/25 09:00 03/13/25 08:25 Rosuvastatin 20 Mg Tablet PO 40 mg DAILY MANOLO Administration Tamsulosin HCl 0.4 mg 03/11/25 23:20 03/13/25 08:25 Tamsulosin Hcl 0.4 Mg Capsule PO 0.4 mg BID MANOLO Administration Radiology Results: ITS Impressions Chest X-Ray 03/11/25 12:38 IMPRESSION: 1. Left perihilar consolidative process possibly representing pneumonia. Finding should be followed radiographically until clear. Cervical Spine CT 03/11/25 14:33 IMPRESSION: HEAD: 1. No acute intracranial findings. C-SPINE: 1. No acute fracture. 2. Incompletely seen dense probable pneumonia right side. Chest x-ray today demonstrates worse pneumonia left lung. Recommend short interval follow-up chest x-rays and/or CT chest to exclude underlying lesion. Head CT 03/11/25 14:33 IMPRESSION: HEAD: 1. No acute intracranial findings. C-SPINE: 1. No acute fracture. 2. Incompletely seen dense probable pneumonia right side. Chest x-ray today demonstrates worse pneumonia left lung. Recommend short interval follow-up chest x-rays and/or CT chest to exclude underlying lesion. Chest CT 03/12/25 18:04 IMPRESSION: Increase in spiculated pleural-based nodule within the right upper lobe measuring up to 4.7 x 3.2 cm noted. There are several smaller adjacent spiculated nodules. This is concerning for malignancy. There is left perihilar airspace opacity extending into the upper and lower lobes with air bronchograms noted. There is small left pleural effusion. Consider follow-up bronchoscopy. All CT scans at this facility are performed using low dose modulation techniques as appropriate to perform exam including the following: automated exposure control; use of iterative reconstruction technique; adjustment of the mA and/or kV according to patient size (this includes techniques or standardized protocols for targeted exams where dose is matched to indication/reason for exam). Labs Labs: Laboratory Results - last 24 hr 03/13/25 04:00 WBC 12.0 H RBC 3.74 L Hgb 10.7 L Hct 33.9 L MCV 90.6 MCH 28.6 MCHC 31.6 L RDW 16.4 H Plt Count 242 MPV 9.5 Sodium 137 Potassium 3.6 Chloride 114 H Carbon Dioxide 20 L Anion Gap 3 L BUN 15 Creatinine 0.80 Estim Creat Clear Calc 47 Estimated GFR > 60 Glucose 113 H Calcium 8.3 L Phosphorus 3.5 Magnesium 1.9 Albumin 2.5 L Vitamin B12 254.0 Folate 3.8
[2025-03-13] MEDS: SACUBITRIL/VALSARTAN 12-13 MG TABLET 1 TAB PO (21:23)
[2025-03-14] VITALS (26 sets, daily range): BP systolic 107–139; BP diastolic 46–70; PULSE 64–91; RESP 18–28; TEMP 36.4–36.9; O2SAT 95–100
[2025-03-14] MEDS: MEROPENEM 1 GM in SODIUM CHLORIDE 0.9% IV 100 ML 200 ML IVPB ×2 (00:06→11:59)
[2025-03-14] MEDS: IPRATROPIUM BR 0.02% INH SOLN 0.5 MG/2.5 ML VIAL INHALATION ×4 (01:45→20:54)
[2025-03-14 04:33] LABS: Hematocrit 33.8 % (42.0-52.0); Hemoglobin 10.8 g/dL (14.0-18.0); Mean Corpuscular HGB Conc 32.0 g/dl (32-36); Mean Corpuscular Hemoglobin 29.0 pg (26-34); Mean Corpuscular Volume 90.6 fl (80-100); Platelet Count Result 226 k/mm3 (150-375); Red Blood Count 3.73 M/mm3 (4.6-6.20); White Blood Count 12.0 K/mm3 (4.5-10.0)
[2025-03-14 04:53] LABS: Anion Gap 3 mmol/L (4-12); Blood Urea Nitrogen 15 mg/dL (9-20); Calcium 8.1 mg/dL (8.4-10.2); Carbon Dioxide 23 mmol/L (22-30); Chloride 110 mmol/L (98-107); Estimated CRCL calculation 53 ml/min; Estimated Glomerular Filt Rate > 60; Glucose 110 mg/dL (65-110); Potassium 3.7 mmol/L (3.4-5.0); Sodium 136 mmol/L (137-145)
[2025-03-14] MEDS: ROSUVASTATIN 20 MG TABLET 40 MG PO (08:14)
[2025-03-14] MEDS: CYANOCOBALAMIN INJ 1,000 MCG/ML VIAL 1000 MCG IM (08:14)
[2025-03-14] MEDS: CYANOCOBALAMIN 1,000 MCG TABLET 1000 MCG PO (08:14)
[2025-03-14] MEDS: DOXYCYCLINE HYCLATE 100 MG TABLET PO ×2 (08:14→20:38)
[2025-03-14] MEDS: TAMSULOSIN HCL 0.4 MG CAPSULE PO ×2 (08:14→16:37)
[2025-03-14] MEDS: SACUBITRIL/VALSARTAN 12-13 MG TABLET 1 TAB PO ×2 (08:14→20:38)
[2025-03-14] MEDS: METOPROLOL TARTRATE 12.5 MG TABLET PO ×2 (08:14→20:38)
--- NOTE | 2025-03-14 17:11 | P.PNIM_ITS ---
Assessment and Plan Assessment and Plan (1) Pneumonia: Code(s): J18.9 - Pneumonia, unspecified organism Status: Acute Assessment and Plan: Patient presents with shortness of breath and cough and found to have sepsis with tachycardia, tachypnea, hypoxia, leukocytosis and lactic acidosis. CXR showing left perihilar consolidative process possibly representing pneumonia. Started on Rocephin and doxycycline for community acquired pneumonia. However, changed to meropenem for the possibility of drug resistant UTI. MRSA nasal swab negative. Blood culture no growth to date. Concern for malignancy given the weight loss and known right upper lobe lung mass CT of the chest shows increased right upper lobe mass now measuring 4.7 cm (0.9cm in 2022) with several smaller adjacent spiculated nodules concerning for malignancy. There is also left perihilar airspace opacity extending into the upper and lower lobes with air bronchograms. Patient has had a known right upper lung mass for many years but has declined evaluation. Spoke with patient and family in the room about findings and direction on how to proceed. Offered pulmonary consult for possible bronchoscopy versus continue routine care. Explained that findings are concerning for malignancy but this has not been a proven diagnosis since no biopsy has been obtained. Patient wishes to proceed with pulmonary consult and possible bronchoscopy. WBC about the same. Pulmonary consulted. Continue CPT. Continue nebulizer treatments. Continue IV antibiotics. Repeat CXR tomorrow (2) Sepsis: Qualifiers: Acute respiratory failure type: with hypoxia Sepsis acute organ dysfunction status: with acute organ dysfunction Sepsis type: sepsis due to unspecified organism Severe sepsis acute organ dysfunction type: acute respiratory failure Severe sepsis shock status: without septic shock Qualified Code(s): A41.9 - Sepsis, unspecified organism; R65.20 - Severe sepsis without septic shock; J96.01 - Acute respiratory failure with hypoxia Code(s): A41.9 - Sepsis, unspecified organism Status: Acute Assessment and Plan: As above (3) Pulmonary mass: Code(s): R91.8 - Other nonspecific abnormal finding of lung field Status: Acute Assessment and Plan: CT chest in September 2022 showing RUL mass measuring 0.9cm. CT of the chest here shows increased right upper lobe mass now measuring 4.7 cm with several smaller adjacent spiculated nodules concerning for malignancy. May also have left perihilar involvement as well resulting in collapse. Patient agreeable for evaluation. Pulm consult (4) Urinary tract infection: Code(s): N39.0 - Urinary tract infection, site not specified Status: Acute Assessment and Plan: Urine and blood cultures were collected. Rocephin started for pneumonia but emiliana has hx of UTI with ESBL Klebsiella pneumoniae so abx was switched to meropenem. BCx NGTD Urine culture growing Klebsiella 50-100K colonies sensitive to meropenem and ertapenem but not rocephin, zosyn or levofloxicin Continue meropenem for now. (5) Atrial fibrillation with RVR: Code(s): I48.91 - Unspecified atrial fibrillation Status: Acute Assessment and Plan: The patient initially was AFib RVR in the emergency room but has auto converted. Echo showing EF 35-40%, diastolic dysfunction. Metoprolol started. He is maintaining sinus rhythm He was resumed on Xarelto but on hold for possible bronchoscopy Monitor on tele (6) CHF (congestive heart failure): Code(s): I50.9 - Heart failure, unspecified Status: Acute Assessment and Plan: Echo from outside facility in 2020 was read as EF of 63% and impaired diastolic relaxation grade 1. Echo here showing EF 35-40%. Continue metoprolol but convert to Toprol XL at discharge. Added Entresto. Consider spironolactone. No empagliflozin given current urinary infection (7) CVA (cerebral vascular accident): Code(s): I63.9 - Cerebral infarction, unspecified Status: Acute Assessment and Plan: No residual issues. On Xarelto at home. Continue with Crestor. Holding Xarelto (8) HLD (hyperlipidemia): Code(s): E78.5 - Hyperlipidemia, unspecified Status: Acute Assessment and Plan: Continue with Crestor (9) Benign prostatic hyperplasia without lower urinary tract symptoms: Code(s): N40.0 - Benign prostatic hyperplasia without lower urinary tract symptoms Status: Acute Assessment and Plan: Continue Flomax Plan B12 Deficiency - replacement ordered. DVT Prophylaxis - SCDs Code status -DNR Disp - add PT/OT Subjective Date/time seen: 03/14/25 17:11 Interval history: 79yod male with history of CVA, HTN, CHF, and history of ESBL bacteria here for a productive cough x 1 week. and generalized weakness. Patient had trouble sleeping last night. He feels short of breath. Complains of right hip and left shoulder pain which is new. He is still having a productive cough. Exam Narrative: AF 98.1 139/59 87 18 100% 2L Gen - NARD Chest -improved air exchange in the left lung field. Normal respiratory CV -irregular irregular. Telemetry showing normal sinus rhythm with PVCs Abd -soft. Scaphoid. Positive bowel sounds. Ext -no right pedal edema. Left [id number] amputation. Psych - Nml mood and affect Skin - Warm and dry Objective Data Vital Signs Vital Signs: Vital Signs - 24 hr 03/13/25 18:00 03/13/25 20:00 03/13/25 20:00 Temperature 98.6 F Pulse Rate 89 84 89 Respiratory Rate 20 24 H Blood Pressure 135/63 Pulse Oximetry 98 Oxygen Delivery Oxygen Flow Rate 03/13/25 20:00 03/13/25 20:00 03/13/25 20:03 Temperature Pulse Rate 74 Respiratory Rate Blood Pressure Pulse Oximetry 94 94 Oxygen Delivery Nasal Cannula Nasal Cannula Oxygen Flow Rate 2 2 03/13/25 20:13 03/13/25 21:23 03/13/25 22:00 Temperature Pulse Rate 90 86 72 Respiratory Rate 20 Blood Pressure Pulse Oximetry Oxygen Delivery Oxygen Flow Rate 03/14/25 00:00 03/14/25 00:00 03/14/25 00:00 Temperature 98.3 F Pulse Rate 75 72 Respiratory Rate 24 H Blood Pressure 123/56 L Pulse Oximetry 96 96 Oxygen Delivery Nasal Cannula Oxygen Flow Rate 2 03/14/25 01:45 03/14/25 01:56 03/14/25 02:00 Temperature Pulse Rate 77 88 75 Respiratory Rate 20 20 Blood Pressure Pulse Oximetry Oxygen Delivery Oxygen Flow Rate 03/14/25 02:58 03/14/25 03:28 03/14/25 07:18 Temperature 98.4 F Pulse Rate 78 Respiratory Rate 21 H Blood Pressure 107/70 Pulse Oximetry 96 96 100 Oxygen Delivery Nasal Cannula Nasal Cannula Oxygen Flow Rate 2 2 03/14/25 07:18 03/14/25 07:23 03/14/25 07:55 Temperature 97.7 F Pulse Rate 64 75 75 Respiratory Rate 20 20 18 Blood Pressure 127/67 Pulse Oximetry 99 Oxygen Delivery Oxygen Flow Rate 03/14/25 08:00 03/14/25 08:00 03/14/25 08:14 Temperature Pulse Rate 90 89 Respiratory Rate Blood Pressure Pulse Oximetry 99 Oxygen Delivery Nasal Cannula Oxygen Flow Rate 2 03/14/25 10:00 03/14/25 11:58 03/14/25 12:00 Temperature 97.5 F L Pulse Rate 77 70 Respiratory Rate 20 Blood Pressure 108/46 L Pulse Oximetry 97 97 Oxygen Delivery Nasal Cannula Oxygen Flow Rate 2 03/14/25 12:00 03/14/25 13:40 03/14/25 13:48 Temperature Pulse Rate 72 78 80 Respiratory Rate 20 20 Blood Pressure Pulse Oximetry Oxygen Delivery Oxygen Flow Rate 03/14/25 14:00 03/14/25 16:00 03/14/25 16:00 Temperature Pulse Rate 80 84 Respiratory Rate Blood Pressure Pulse Oximetry 97 Oxygen Delivery Nasal Cannula Oxygen Flow Rate 2 03/14/25 16:45 Temperature 98.1 F Pulse Rate 87 Respiratory Rate 18 Blood Pressure 139/59 L Pulse Oximetry 100 Oxygen Delivery Oxygen Flow Rate Intake/Output Intake/Output: Intake & Output 03/11/25 03/12/25 03/13/25 03/14/25 23:59 23:59 23:59 23:59 Intake Total 1650 1146 1590 470 Output Total 200 900 700 620 Balance 1450 246 890 -150 Meds/Results Medications: Active Medications Generic Name Dose Route Start Last Admin Trade Name Freq PRN Reason Stop Dose Admin Acetaminophen 650 mg 03/12/25 23:24 03/12/25 23:29 Acetaminophen 325 Mg Tablet PO 650 mg Q6H PRN Administration Mild Pain (1-3) or Fever Cyanocobalamin 1,000 mcg 03/14/25 09:00 03/14/25 08:14 Cyanocobalamin Inj 1,000 Mcg/Ml Vial IM 03/16/25 09:01 1,000 mcg DAILY MANOLO Administration Cyanocobalamin 1,000 mcg 03/14/25 09:00 03/14/25 08:14 Cyanocobalamin 1,000 Mcg Tablet PO 1,000 mcg QAM MANOLO Administration Doxycycline Hyclate 100 mg 03/12/25 21:00 03/14/25 08:14 Doxycycline Hyclate 100 Mg Tablet PO 03/17/25 09:01 100 mg Q12HR MANOLO Administration Meropenem 1 gm/ Sodium 100 mls @ 200 mls/hr 03/12/25 00:00 03/14/25 11:59 Chloride IVPB 200 mls/hr Q12H MANOLO Administration Ipratropium [place] 0.5 mg 03/12/25 02:00 03/14/25 13:40 Ipratropium Br 0.02% Inh Soln 0.5 Mg/2.5 Ml Vial INHALATION 0.5 mg Q6HRT MANOLO Administration Levalbuterol HCl 0.63 mg 03/12/25 02:00 03/14/25 13:39 Levalbuterol Neb 1.25 Mg/3 Ml INHALATION 0.63 mg Q6HRT MANOLO Administration Metoprolol Tartrate 12.5 mg 03/12/25 21:00 03/14/25 08:14 Metoprolol Tartrate 12.5 Mg Tablet PO 12.5 mg Q12HR MANOLO Administration Perflutren Lipid Microsphere 0 ml 03/12/25 00:02 Perflutren Lipid Microspheres 1.5 Ml Vial Diluted To 10 Ml Total Volume IV PUSH 03/15/25 00:02 ONCE PRN adequate visualization Protocol Rivaroxaban 2.5 mg 03/11/25 23:20 03/13/25 08:25 Rivaroxaban 2.5 Mg Tablet PO 2.5 mg On Hold: 03/13/25 18:52 Q12HR MANOLO Administration Rosuvastatin Calcium 40 mg 03/12/25 09:00 03/14/25 08:14 Rosuvastatin 20 Mg Tablet PO 40 mg DAILY MANOLO Administration Sacubitril/Valsartan 1 tab 03/13/25 21:00 03/14/25 08:14 Sacubitril/Valsartan 12-13 Mg Tablet PO 1 tab Q12HR MANOLO Administration Tamsulosin HCl 0.4 mg 03/11/25 23:20 03/14/25 16:37 Tamsulosin Hcl 0.4 Mg Capsule PO 0.4 mg BID MANOLO Administration Radiology Results: ITS Impressions Chest X-Ray 03/11/25 12:38 IMPRESSION: 1. Left perihilar consolidative process possibly representing pneumonia. Finding should be followed radiographically until clear. Cervical Spine CT 03/11/25 14:33 IMPRESSION: HEAD: 1. No acute intracranial findings. C-SPINE: 1. No acute fracture. 2. Incompletely seen dense probable pneumonia right side. Chest x-ray today demonstrates worse pneumonia left lung. Recommend short interval follow-up chest x-rays and/or CT chest to exclude underlying lesion. Head CT 03/11/25 14:33 IMPRESSION: HEAD: 1. No acute intracranial findings. C-SPINE: 1. No acute fracture. 2. Incompletely seen dense probable pneumonia right side. Chest x-ray today demonstrates worse pneumonia left lung. Recommend short interval follow-up chest x-rays and/or CT chest to exclude underlying lesion. Chest CT 03/12/25 18:04 IMPRESSION: Increase in spiculated pleural-based nodule within the right upper lobe m easuring up to 4.7 x 3.2 cm noted. There are several smaller adjacent spiculated nodules. This is concerning for malignancy. There is left perihilar airspace opacity extending into the upper and lower lobes with air bronchograms noted. There is small left pleural effusion. Consider follow-up bronchoscopy. All CT scans at this facility are performed using low dose modulation techniques as appropriate to perform exam including the following: automated exposure control; use of iterative reconstruction technique; adjustment of the mA and/or kV according to patient size (this includes techniques or standardized protocols for targeted exams where dose is matched to indication/reason for e xam). Labs Labs: Laboratory Results - last 24 hr 03/14/25 03:42 WBC 12.0 H RBC 3.73 L Hgb 10.8 L Hct 33.8 L MCV 90.6 MCH 29.0 MCHC 32.0 RDW 16.4 H Plt Count 226 MPV 9.7 Sodium 136 L Potassium 3.7 Chloride 110 H Carbon Dioxide 23 Anion Gap 3 L BUN 15 Creatinine 0.73 Estim Creat Clear Calc 53 Estimated GFR > 60 Glucose 110 Calcium 8.1 L
[2025-03-15] VITALS (28 sets, daily range): BP systolic 99–141; BP diastolic 38–96; PULSE 73–169; RESP 16–28; TEMP 36.1–37.1; O2SAT 94–99
[2025-03-15] MEDS: IPRATROPIUM BR 0.02% INH SOLN 0.5 MG/2.5 ML VIAL INHALATION ×4 (01:32→20:40)
[2025-03-15 03:50] LABS: Hematocrit 36.7 % (42.0-52.0); Hemoglobin 11.3 g/dL (14.0-18.0); Immature Granulocyte Percent A 0.6 % (0-0.5); Lymphocytes Absolute Auto 0.59 K/mm3 (0.9-3.2); Mean Corpuscular HGB Conc 30.8 g/dl (32-36); Mean Corpuscular Hemoglobin 27.8 pg (26-34); Mean Corpuscular Volume 90.4 fl (80-100); Nucleated Red Blood Cells Absolute Auto 0.000 K/mm3 (0.0-0.012); Nucleated Red Blood Cells Perc 0.0 % (0.0-0.2); Platelet Count Result 248 k/mm3 (150-375); Red Blood Count 4.06 M/mm3 (4.6-6.20); White Blood Count 11.1 K/mm3 (4.5-10.0)
[2025-03-15 04:09] LABS: Albumin Level 2.6 g/dL (3.5-5.1); Anion Gap 2 mmol/L (4-12); Blood Urea Nitrogen 17 mg/dL (9-20); Calcium 8.4 mg/dL (8.4-10.2); Carbon Dioxide 25 mmol/L (22-30); Chloride 111 mmol/L (98-107); Estimated CRCL calculation 52 ml/min; Estimated Glomerular Filt Rate > 60; Glucose 122 mg/dL (65-110); Magnesium 1.9 mg/dL (1.6-2.3); Potassium 3.8 mmol/L (3.4-5.0); Sodium 138 mmol/L (137-145)
[2025-03-15 04:12] LABS: INR 1.3; Prothrombin Time 16.4 Seconds (11.1-14.7)
[2025-03-15 04:13] LABS: Partial Thromboplastin Time 41.2 Seconds (22.3-36.8)
--- NOTE | 2025-03-15 07:15 | P.CDI_ITS ---
CDI Query Clarification Request BMI: 15.2 Nutritional Diagnostic Statement: Please refer to the comprehensive nutrition assessment for further information. If you agree with diagnosis of Moderate protein calorie malnutrition related to chronic loss of appetite as evidenced by intakes <75% needs >1 month; severe muscle wasting (temporalis, clavicles, shoulders) and severe fat loss (cheeks). Please specify severity if known: * Mild * Moderate * Severe * Other/Unknown
[2025-03-15 09:25] LABS: CRP 15.9 mg/dL (<1.0)
[2025-03-15] MEDS: SACUBITRIL/VALSARTAN 12-13 MG TABLET 1 TAB PO (09:30)
[2025-03-15] MEDS: CYANOCOBALAMIN 1,000 MCG TABLET 1000 MCG PO (09:30)
[2025-03-15] MEDS: ROSUVASTATIN 20 MG TABLET 40 MG PO (09:30)
[2025-03-15] MEDS: DOXYCYCLINE HYCLATE 100 MG TABLET PO ×2 (09:30→21:26)
[2025-03-15] MEDS: TAMSULOSIN HCL 0.4 MG CAPSULE PO ×2 (09:30→21:26)
[2025-03-15] MEDS: METOPROLOL TARTRATE 12.5 MG TABLET PO ×2 (09:30→21:26)
[2025-03-15] MEDS: CYANOCOBALAMIN INJ 1,000 MCG/ML VIAL 1000 MCG IM (09:30)
[2025-03-15 09:53] LABS: Procalcitonin 0.2 ng/mL
--- NOTE | 2025-03-15 09:56 | ECG_ITS ---
Test Date: 2025-03-15 10:04:24 Measurements Intervals [place] Rate: 145 P: 0 RI: 0 QRS: -20 QRSD: 107 T: 140 QT: 299 QTc: 466 Interpretive Statements ATRIAL FIBRILLATION WITH RAPID VENTRICULAR RESPONSE LEFT VENTRICULAR HYPERTROPHY WITH ST-T CHANGE BORDERLINE R WAVE PROGRESSION, ANTERIOR LEADS MINIMAL Q WAVES- HIGH LATERAL LEADS BORDERLINE ST-T WAVE ABNORMALITY- ANTEROLATERAL LEADS PEAKED T WAVES- CONSIDER HYPERKALEMIA BASELINE ARTIFACT- AVR, AVL, AVF, V3-V6 ABNORMAL ECG Compared to ECG 03/13/2025 06:38:19 HEART RATE HAS INCREASED PEAKED T WAVES NOW PRESENT Electronically Signed On 03-15-2025 10:39:59 [employer] DUMP DRIVER by Huang Walsh D.O.
--- NOTE | 2025-03-15 09:58 | PCOTNOTE ---
Patient unavailable x1 (lung x-ray), HOLD per RN due to HR in 160s at second attempt 09:56. will continue to follow patient.
--- NOTE | 2025-03-15 10:22 | ECG_ITS ---
Test Date: 2025-03-15 10:38:13 Measurements Intervals [place] Rate: 98 P: 0 GA: 0 QRS: -14 QRSD: 110 T: 131 QT: 359 QTc: 460 Interpretive Statements SINUS RHYTHM WITH ATRIAL AND VENTRICULAR PREMATURE COMPLEXES LEFT VENTRICULAR HYPERTROPHY WITH ST-T CHANGE MINIMAL Q WAVES- LAT/HIGH LAT LEADS BASELINE WANDER- V1, V4-V6 ABNORMAL ECG Compared to ECG 03/15/2025 10:04:24 ATRIAL FIBRILLATION NO LONGER PRESENT Electronically Signed On 03-15-2025 12:05:49 [employer]ODU[employer] INSPECTOR by Huang Walsh D.O.
[2025-03-15] MEDS: MEROPENEM 1 GM in SODIUM CHLORIDE 0.9% IV 100 ML 200 ML IVPB ×2 (11:23)
[2025-03-15] MEDS: METOPROLOL TARTRATE INJ 5 MG/5 ML VIAL IV PUSH (11:37)
[2025-03-15] MEDS: guaiFENesin 12 HR 600 MG TABCR 1200 MG PO ×2 (11:43→21:26)
--- NOTE | 2025-03-15 13:39 | PM.CNPUL ---
Assessment and Plan Assessment and plan (1) Pneumonia: Qualifiers: Laterality: left Lung location: lower lobe of lung Pneumonia type: due to unspecified organism Qualified Code(s): J18.9 - Pneumonia, unspecified organism Code(s): J18.9 - Pneumonia, unspecified organism Status: Acute Assessment and Plan: 03/11/2025: Patient presented to the emergency room with weakness, and 1 week of productive cough. Blood pressure 104/62, heart rate 137, respirations 27, room air saturations 89%. 3 L nasal cannula 97%. Lungs were clear. White blood cell count 14.2, creatinine 1.01, COPD 5.1, urine with greater than 100 white blood cells, 4+ bacteria. Influenza, RSV and COVID RT PCR assay negative. Chest x-ray showed left perihilar consolidation. Admitted and treated for UTI and pneumonia. Patient was started on doxycycline and Rocephin. He was given 2 L IV fluid. Patient previously had a pneumonia with Klebsiella in 2023 that was resistant to ceftriaxone and switch to meropenem. Doxycycline was continued. MRSA swab negative. CT scan on 03/12/2025 demonstrated enlarging spiculated pleural based right upper lobe nodule now measuring 4.7 x 3.2 cm. Left perihilar consolidation with air bronchograms in the left upper and lower lobes. Mild apical predominant centrilobular emphysema. I reviewed the scan with the radiologist and was difficult to tell if there was any hilar or mediastinal lymphadenopathy on the left, is unclear if the left airway was compromised or if there was a left mass. There is a small left pleural effusion. 03/15/2025: Patient tells me he has improved since admission. He tells me he is breathing 50% back to his normal. His cough and phlegm production or better and the concurs. He has shortness of breath at rest. Room air saturation 97%. He is afebrile. White blood cell count 11.1. Creatinine 0.74. CRP has increased from 5.1 on 03/11/2025 to 15.9 today. Procalcitonin is 0.2 today. Yesterday patient was -160 mL. Cumulative he is positive 2.1 L since admission. His weight today is 51 kg. Chest x-ray today shows 90% whiteout of the left lung with shift to the mediastinum to the left. plan: Agree with treating patient for bacterial infection. He is on meropenem, started 03/12 day 4. He is on doxycycline, started 03/11, day 5. COVID, RSV, influenza RT PCR assay negative. Urine for streptococcal, urine for Legionella pending. I will send respiratory pathogen panel and serum mycoplasma IgM. Patient is weak and debilitated and now with near complete collapse of the left lower lobe. Suspect mucus plug. Will continue levalbuterol and ipratropium nebulizers q.6. Will add Mucomyst nebulizer q.6, coronary flutter valve, vest treatment t.i.d.. Will add guaifenesin 1200 mg p.o. b.i.d.. 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 Regarding his right upper lobe lung nodule on 09/26/2022 this was 9 x 6 mm. Patient declined workup. Repeat scan on 04/03/2023 demonstrated increased growth at 1.2 cm. Patient declined workup. I reviewed patient's serial CT scans of the chest with Radiology and right upper lobe lung lesion concerning for cancer. Difficult to assess left hilar, mediastinal and lung as there are dense consolidative infiltrates. Plan: I recommended to the patient that we treat his right pneumonia and once he is improved clinically perform a biopsy of the right upper lobe lung mass. At this time the patient told me he declined this and does not want to know if he has cancer and just wishes to ride the storm out. I informed him that there were treatments for cancer and he told me he does not want radiation or chemotherapy in the future. I told him surgery may be an option but given his comorbidities and debilitated state I suspect he would be too frail to undergo thoracotomy. Again he told me he wanted to wait and not perform any biopsies at this time. Will readdress after he has had time to talk to his daughter and who were in the room. History of Present Illness History of Present Illness Consult date: 03/15/25 Chief complaint: Acute Respiratory Failure W Hypoxia/Atrial Fib w R Narrative: 03/15/2025: This is a new pulmonary consult for right upper lobe lung mass and left lung collapse. 79-year-old man with Low-grade papillary urothelial carcinoma on 01/12/2020, prostate cancer status post 45 radiation treatments 2020, peripheral vascular disease status post left AKA, CVA, hypertension, congestive heart failure, right upper lobe lung nodule. Regarding his right upper lobe lung nodule on 09/26/2022 this was 9 x 6 mm. Patient declined workup. Repeat scan on 04/03/2023 demonstrated increased growth at 1.2 cm. Patient declined workup. 03/11/2025: Patient presented to the emergency room with weakness, and 1 week of productive cough. Blood pressure 104/62, heart rate 137, respirations 27, room air saturations 89%. 3 L nasal cannula 97%. Lungs were clear. White blood cell count 14.2, creatinine 1.01, COPD 5.1, urine with greater than 100 white blood cells, 4+ bacteria. Influenza, RSV and COVID RT PCR assay negative. Chest x-ray showed left perihilar consolidation. Admitted and treated for UTI and pneumonia. Patient was started on doxycycline and Rocephin. He was given 2 L IV fluid. Patient previously had a pneumonia with Klebsiella in 2023 that was resistant to ceftriaxone and switch to meropenem. Doxycycline was continued. MRSA swab negative. CT scan on 03/12/2025 demonstrated enlarging spiculated pleural based right upper lobe nodule now measuring 4.7 x 3.2 cm. Left perihilar consolidation with air bronchograms in the left upper and lower lobes. I reviewed the scan with the radiologist and was difficult to tell if there was any hilar or mediastinal lymphadenopathy on the left, is unclear if the left airway was compromised or if there was a left mass. There is a small left pleural effusion. 03/15/2025: Patient tells me he has improved since admission. He tells me he is breathing 50% back to his normal. His cough and phlegm production or better and the concurs. He has shortness of breath at rest. Room air saturation 97%. He is afebrile. White blood cell count 11.1. Creatinine 0.74. CRP has increased from 5.1 on 03/11/2025 to 15.9 today. Procalcitonin is 0.2 today. Yesterday patient was -160 mL. Cumulative he is positive 2.1 L since admission. His weight today is 51 kg. Chest x-ray today shows 90% whiteout of the left lung with shift to the mediastinum to the left. DATA: 03/12/25: Echo Summary 1. Complete two-dimensional, color flow and Doppler transthoracic echocardiogram is performed. 2. Left ventricular systolic function is mildly reduced, estimated at 35-40. 3. There is mildly increased left ventricular wall thickness. 4. Left ventricular chamber dimension is mildly enlarged. 5. The left ventricular diastolic function is abnormal. 6. Left atrial chamber dimension is mildly enlarged. 7. There is mild pulmonic regurgitation. Right Ventricle Right ventricular chamber dimension is normal. Right ventricular systolic function is normal. Left Atria Left atrial chamber dimension is mildly enlarged. Right Atria Right atrial chamber dimension is normal. 03/12/2025: CT diagnostic chest wo con HISTORY:perihilar PNA, smoker COMPARISON: 04/02/2023. TECHNIQUE: Axial images of the chest were obtained without infusion of intravenous contrast. Dose optimization technique was utilized. FINDINGS: The examination demonstrates increase in patchy nodular opacity within the right upper lobe which now measures up to 4.7 x 3.2 cm. There is left perihilar consolidation extending into the upper and lower lobes where there are air bronchograms noted. There is a small left pleural effusion. Cardiac size and mediastinal configuration are normal in appearance. No hilar or mediastinal lymphadenopathy is seen. The thoracic aorta is normal in caliber. Osseous structures are intact. Hepatic cysts are stable. IMPRESSION: Increase in spiculated pleural-based nodule within the right upper lobe measuring up to 4.7 x 3.2 cm noted. There are several smaller adjacent spiculated nodules. This is concerning for malignancy. There is left perihilar airspace opacity extending into the upper and lower lobes with air bronchograms noted. There is small left pleural effusion. Consider follow-up bronchoscopy. 04/02/2023; CT Scan of the Chest without Contrast: Clinical Indication: Lung nodule COMPARISON: 09/26/2022 Findings: There is no evidence of any significant mediastinal, hilar or axillary lymphadenopathy. There are atherosclerotic ossifications of the aorta and [place] coronary arteries. Status post probable CABG. There is no evidence of pleural or pericardial effusion. Right upper lobe pulmonary nodule is mild increase in size, now measuring up to 1.2 cm in diameter. Stable probable emphysematous change in right apical scarring. Images through the upper abdomen reveal small hepatic cysts. Impression: Right upper lobe pulmonary nodule is increased in size, now measuring 1.2 cm. Interval growth is suspicious for small neoplastic lesion. Consider attempted tissue sampling and/or PET/CT at this time. Stable emphysematous change and right apical scarring. 09/26/2022: EXAMINATION: CT diagnostic chest wo con INDICATION: R91.1 - Solitary pulmonary nodule COMPARISON: None FINDINGS: Mild emphysema with mild left and moderate right apical pleural-parenchymal scarring. 9 x 6 mm right upper lobe nodule. Small calcified right lower lobe nodule consistent with old granulomatous disease. Groundglass opacities and irregular septal line thickening at the dependent periphery of the right lower lobe most likely atelectasis with differential including less likely mild pulmonary edema or chronic interstitial fibrosis with nonspecific interstitial pneumonia (NSIP) pattern. No pleural effusion. Heart size normal. Atherosclerotic coronary artery calcification. Median sternotomy wires and mediastinal surgical clips are consistent with coronary artery bypass grafting. No pericardial effusion. Enlargement of the central pulmonary arteries consistent with pulmonary arterial hypertension. 2 cm low-attenuation cyst in the left hepatic lobe. A millimeter exophytic lesion at the right kidney which is more dense in the surrounding renal parenchyma, indeterminate but most likely a complex proteinaceous/hemorrhagic cyst. Suggestion of hydronephrosis at the upper pole the left kidney with effacement of the previously seen renal sinus fat. Mild thoracic spondylosis. IMPRESSION: 1. Mild emphysema with biapical pleural-parenchymal scarring, right greater than left. 2. Indeterminate 9 x 6 mm right upper lobe nodule. Correlate with any prior outside imaging and if long-term stability cannot be confirmed, would recommend follow-up chest CT in months. 3. Effacement of the renal sinus fat at the visualized upper pole the left kidney which is new since 06/20/2022 with suggestion of surface hydronephrosis. Recommend correlation with urinalysis and consider further evaluation with pre and postcontrast CT . Review of Systems Constitutional: Constitutional: Reports no additional constitutional complaints Eyes: Eyes: Reports no additional eye complaints ENT: Reports system reviewed and no additional complaints, except as documented Cardiovascular: Cardiovascular: Reports no additional cardiovascular complaints Respiratory: Respiratory: Reports no additional respiratory complaints Gastrointestinal: Gastrointestinal: Reports no additional gastrointestinal complaints Musculoskeletal: Musculoskeletal: Reports no additional musculoskeletal complaints Neurologic: Reports system reviewed and no additional complaints, except as documented Psychiatric: Psychiatric: Reports no additional psychiatric complaints Endocrine: Endocrine: Reports no additional endocrine complaints Hematologic/Lymphatic: Hematologic/Lymphatic: Reports no additional hematologic/lymphatic complaints Allergic/Immunologic: Allergic/Immunologic: Reports no additional allergic/immunologic complaints [facility] Past Medical History Medical History (Updated 03/13/25 @ 18:54 by Meño Lazaro MD) Pneumonia Mixed hyperlipidemia Urinary tract infection S/P angiogram of extremity C. difficile colitis ESBL (extended spectrum beta-lactamase) producing bacteria infection Aspiration into airway History of infection due to ESBL Klebsiella oxytoca Sepsis History of stroke with current residual effects CVA (cerebral vascular accident) Cough Acute CVA (cerebrovascular accident) Basal cell carcinoma (BCC) on face removed in 2011 Foot fracture, left DDD (degenerative disc disease) Cyst of right kidney Arthritis Enlarged prostate Renal disease HTN (hypertension) Hypercholesteremia CAD (coronary artery disease) Farsightedness Left ear hearing loss CHF (congestive heart failure) Myocardial infarction Surgical History Surgical History (Updated 03/11/25 @ 23:24 by Pam Schwartz APRN) History of facial surgery To remove a basal cell carcinoma. 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 Social History Social History (Updated 03/11/25 @ 23:25 by Pam Schwartz APRN) Social History: Patient lives at home with his , Loan, whom he designates as his surrogate MDM. His PCP is Dr. Kenny.2 children He served in the [employer] in [employer]. 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 Code status: DNR/DNI (per patient request) Smoking packs per day: 0.5 Smoking cigarettes per day: 10.0 Years smoked: 50 Smoking pack-years: 25.00 Smoking status: Current every day smoker Tobacco type: cigarettes Second hand tobacco smoke exposure: Yes Additional smoking assessment comments: pt states he is not interested in quitting right now Alcohol intake: former Substance use: never Substance use type: does not use Lack of Transportation: No Lack of Food: Never True Current Housing: I Have Housing Concerned About Future Housing: No Difficulty Paying Gas/Electric Bills: No Difficulty Paying for Meds: No Currently Unemployed: No Education: Bachelor's Degree Difficulty w/ Childcare or Family Care: No Living arrangements: with family Additional living arrangements comments: Gender identity (if verbalized by the patient): Male Sexual Orientation (if Verbalized by the Patient): Straight or Heterosexual Spiritual care concerns: No Agree to blood products: Yes Meds Home Medications and Allergies Home Medications ?Medication ?Instructions ?Recorded ?Confirmed ?Type tamsulosin 0.4 mg capsule 0.4 mg PO BID #60 caps 06/07/22 03/11/25 Rx rivaroxaban 2.5 mg tablet 2.5 mg PO BID 04/21/23 03/11/25 History ciprofloxacin HCl 500 mg tablet 500 mg PO Q12H #60 tabs 07/18/23 03/11/25 Rx doxycycline hyclate 100 mg tablet 100 mg PO Q12H #60 tabs 07/18/23 03/11/25 Rx doxycycline hyclate 100 mg capsule 100 mg PO Q12H Bladder cancer 03/11/25 03/11/25 History rosuvastatin 40 mg tablet 40 mg PO DAILY Bladder cancer 03/11/25 03/11/25 History Allergies Allergy/AdvReac Type Severity Reaction Status Date / Time Aminoglycosides Allergy Severe RASH Verified 03/11/25 23:35 bacitracin Allergy Severe Rash Verified 03/11/25 23:35 neomycin Allergy Severe RASH Verified 03/11/25 23:35 polymyxin B Allergy Severe Rash Verified 03/11/25 23:35 Vital Signs Vital Signs - 24 hr 03/14/25 13:40 03/14/25 13:48 03/14/25 14:00 Temperature Pulse Rate 78 80 80 Respiratory Rate 20 20 Blood Pressure Pulse Oximetry Oxygen Delivery Oxygen Flow Rate Fraction of Inspired Oxygen 03/14/25 16:00 03/14/25 16:00 03/14/25 16:45 Temperature 36.7 C Pulse Rate 84 87 Respiratory Rate 18 Blood Pressure 139/59 L Pulse Oximetry 97 100 Oxygen Delivery Nasal Cannula Oxygen Flow Rate 2 Fraction of Inspired Oxygen 03/14/25 18:00 03/14/25 20:00 03/14/25 20:00 Temperature 36.6 C Pulse Rate 86 80 91 Respiratory Rate 28 H Blood Pressure 126/62 Pulse Oximetry 97 Oxygen Delivery Oxygen Flow Rate Fraction of Inspired Oxygen 03/14/25 20:38 03/14/25 20:57 03/14/25 20:58 Temperature Pulse Rate 88 81 81 Respiratory Rate 20 20 Blood Pressure Pulse Oximetry 95 Oxygen Delivery Nasal Cannula Oxygen Flow Rate 1 Fraction of Inspired Oxygen 24 03/14/25 21:12 03/14/25 22:00 03/15/25 00:00 Temperature Pulse Rate 85 85 90 Respiratory Rate 20 Blood Pressure Pulse Oximetry Oxygen Delivery Oxygen Flow Rate Fraction of Inspired Oxygen 03/15/25 00:00 03/15/25 01:33 03/15/25 01:45 Temperature 37.1 C Pulse Rate 84 93 108 H Respiratory Rate 28 H 20 20 Blood Pressure 99/52 L Pulse Oximetry 96 Oxygen Delivery Oxygen Flow Rate Fraction of Inspired Oxygen 03/15/25 02:00 03/15/25 04:00 03/15/25 04:00 Temperature 37.1 C Pulse Rate 94 79 84 Respiratory Rate 21 H Blood Pressure 116/38 L Pulse Oximetry 96 Oxygen Delivery Oxygen Flow Rate Fraction of Inspired Oxygen 03/15/25 06:00 03/15/25 08:00 03/15/25 08:39 Temperature 36.6 C Pulse Rate 88 82 96 Respiratory Rate 18 18 Blood Pressure 121/59 L Pulse Oximetry 95 Oxygen Delivery Oxygen Flow Rate Fraction of Inspired Oxygen 03/15/25 08:41 03/15/25 09:30 03/15/25 10:06 Temperature 36.3 C L Pulse Rate 96 82 160 H Respiratory Rate 16 22 H Blood Pressure 141/48 H Pulse Oximetry 97 94 Oxygen Delivery Room Air Oxygen Flow Rate Fraction of Inspired Oxygen 03/15/25 11:37 03/15/25 12:03 03/15/25 12:03 Temperature 36.1 C L Pulse Rate 141 H 144 H Respiratory Rate 22 H Blood Pressure 105/66 Pulse Oximetry 95 Oxygen Delivery Oxygen Flow Rate Fraction of Inspired Oxygen 03/15/25 12:30 03/15/25 12:52 Temperature Pulse Rate 113 H Respiratory Rate Blood Pressure 119/96 H 119/96 H Pulse Oximetry Oxygen Delivery Oxygen Flow Rate Fraction of Inspired Oxygen Exam Const: General: cooperative, comfortable and no acute distress Orientation/consciousness: oriented to person, oriented to place and oriented to time Other: weak, debilitated, cachectic HENMT: Head: normal to inspection Ears: hearing grossly normal bilaterally Eyes: General: appearance normal, both eyes and all related structures Neck: Neck: normal visual inspection Chest: Chest palpation & inspection: normal inspection of the chest Resp: Effort & Inspection: normal respiratory effort and able to speak in complete sentences Auscultation: no crackles, no rales, no rhonchi, no wheezes and diminished lung sounds Cardio: Jugular venous distension: no JVD GI: Inspection: normal to inspection GI Palp: No abdominal tenderness Skin: General skin exam: normal color Neuro: General: oriented to person, oriented to place and oriented to time Extrem: General: normal to inspection and no edema Psych: Appearance: grossly normal Results Laboratory Findings 03/15/25 03:30 03/15/25 03:30 ABG, PT/INR, D-dimer: PT/INR, D-dimer PT 16.4 Seconds (11.1-14.7) H 03/15/25 03:30 INR 1.3 03/15/25 03:30 Abnormal lab findings: Abnormal Labs 03/11/25 03/11/25 03/13/25 11:53 13:39 04:00 WBC 14.2 H 12.0 H RBC 4.42 L 3.74 L Hgb 12.5 L 10.7 L Hct 40.0 L 33.9 L MCHC 31.3 L 31.6 L RDW 16.1 H 16.4 H Immature Gran % (Auto) 0.6 H Neut % (Auto) 90.9 H Lymph % (Auto) 3.5 L Lymph # (Auto) 0.50 L Ward # (Auto) Abs Immat Gran (auto) 0.09 H Absolute Neuts (auto) 12.9 H PT 17.4 H APTT Sodium Chloride 108 H 114 H Carbon Dioxide 20 L Anion Gap 3 L Glucose 166 H 113 H POC Capillary Glucose Lactic Acid 3.7 H Calcium 8.3 L C-Reactive Protein 5.1 H Albumin 3.1 L 2.5 L Urine Appearance Turbid H Urine Protein 2+ H Leukocyte Esterase Rfl 3+ H Urine RBC 11-20 H Urine WBC >100 H 03/14/25 03/15/25 03/15/25 03:42 03:30 10:04 WBC 12.0 H 11.1 H RBC 3.73 L 4.06 L Hgb 10.8 L 11.3 L Hct 33.8 L 36.7 L MCHC 30.8 L RDW 16.4 H 16.4 H Immature Gran % (Auto) 0.6 H Neut % (Auto) 87.4 H Lymph % (Auto) 5.3 L Lymph # (Auto) 0.59 L Ward # (Auto) 0.7 H Abs Immat Gran (auto) 0.07 H Absolute Neuts (auto) 9.7 H PT 16.4 H APTT 41.2 H Sodium 136 L Chloride 110 H 111 H Carbon Dioxide Anion Gap 3 L 2 L Glucose 122 H POC Capillary Glucose 113 H Lactic Acid Calcium 8.1 L C-Reactive Protein 15.9 H Albumin 2.6 L Urine Appearance Urine Protein Leukocyte Esterase Rfl Urine RBC Urine WBC Diagnostic Findings Additional studies: ITS Impressions Chest X-Ray 03/11/25 12:38 IMPRESSION: 1. Left perihilar consolidative process possibly representing pneumonia. Finding should be followed radiographically until clear. Cervical Spine CT 03/11/25 14:33 IMPRESSION: HEAD: 1. No acute intracranial findings. C-SPINE: 1. No acute fracture. 2. Incompletely seen dense probable pneumonia right side. Chest x-ray today demonstrates worse pneumonia left lung. Recommend short interval follow-up chest x-rays and/or CT chest to exclude underlying lesion. Head CT 03/11/25 14:33 IMPRESSION: HEAD: 1. No acute intracranial findings. C-SPINE: 1. No acute fracture. 2. Incompletely seen dense probable pneumonia right side. Chest x-ray today demonstrates worse pneumonia left lung. Recommend short interval follow-up chest x-rays and/or CT chest to exclude underlying lesion. Chest CT 03/12/25 18:04 IMPRESSION: Increase in spiculated pleural-based nodule within the right upper lobe measuring up to 4.7 x 3.2 cm noted. There are several smaller adjacent spiculated nodules. This is concerning for malignancy. There is left perihilar airspace opacity extending into the upper and lower lobes with air bronchograms noted. There is small left pleural effusion. Consider follow-up bronchoscopy. Chest X-Ray 03/15/25 12:49 Impression: 1: Complete opacification left hemithorax which may represent a combination of pneumonia, atelectasis and/or pleural effusion. 2: Right upper lobe airspace disease with adjacent pleural thickening, suspicious for pneumonia versus scarring.
[2025-03-15] MEDS: ACETYLCYSTEINE 20% INHAL SOLN 800 MG/4 ML VIAL 200 MG INHALATION ×2 (13:42→20:40)
--- NOTE | 2025-03-15 15:59 | PCPTNOTE ---
PER OT: Per RN, pt has a high resting HR - not safe for therapy at this time. Will continue to follow patient.
--- NOTE | 2025-03-15 17:48 | P.PNIM_ITS ---
Assessment and Plan Assessment and Plan (1) Pneumonia: Code(s): J18.9 - Pneumonia, unspecified organism Status: Acute Assessment and Plan: Patient presents with SOB and cough and found to have sepsis with tachycardia, tachypnea, hypoxia, leukocytosis and lactic acidosis. CXR showing left perihilar consolidative process possibly representing pneumonia. Started on Rocephin and doxycycline for community acquired pneumonia but changed to meropenem for the possibility of drug resistant UTI. MRSA nasal swab negative. Blood culture no growth to date. Concern for malignancy given the weight loss and known right upper lobe lung mass CT of the chest shows increased right upper lobe mass now measuring 4.7 cm (0.9cm in 2022) with several smaller adjacent spiculated nodules concerning for malignancy. There is also left perihilar airspace opacity extending into the upper and lower lobes with air bronchograms. Patient has had a known right upper lung mass for many years but has declined evaluation. Spoke with patient and family in the room about findings and direction on how to proceed. Offered pulmonary consult for possible bronchoscopy versus continue routine care. Explained that findings are concerning for malignancy but this has not been a proven diagnosis since no biopsy has been obtained. Patient wishes to proceed with pulmonary consult and possible bronchoscopy. WBC about the same in the 11-12K range. Pulmonary consulted and appreciate their input. Repeat CXR showing complete white out of left lung. Continue CPT with vest therapy. Continue nebulizer treatments. Continue IV antibiotics. Mucomyst nebulizer and guaifenesin added (2) Sepsis: Qualifiers: Acute respiratory failure type: with hypoxia Sepsis acute organ dysfunction status: with acute organ dysfunction Sepsis type: sepsis due to unspecified organism Severe sepsis acute organ dysfunction type: acute respiratory failure Severe sepsis shock status: without septic shock Qualified Code(s): A41.9 - Sepsis, unspecified organism; R65.20 - Severe sepsis without septic shock; J96.01 - Acute respiratory failure with hypoxia Code(s): A41.9 - Sepsis, unspecified organism Status: Acute Assessment and Plan: As above (3) Pulmonary mass: Code(s): R91.8 - Other nonspecific abnormal finding of lung field Status: Acute Assessment and Plan: CT chest in September 2022 showing RUL mass measuring 0.9cm. CT of the chest here shows increased right upper lobe mass now measuring 4.7 cm with several smaller adjacent spiculated nodules concerning for malignancy. May also have left perihilar involvement as well resulting in collapse. Patient agreeable for evaluation. Pulm consulted (4) Urinary tract infection: Code(s): N39.0 - Urinary tract infection, site not specified Status: Acute Assessment and Plan: Urine and blood cultures were collected. Rocephin started for pneumonia but emiliana has hx of UTI with ESBL Klebsiella pneumoniae so abx was switched to meropenem (03/12). BCx NGTD UCx growing Klebsiella 50-100K colonies sensitive to meropenem and ertapenem but not rocephin, zosyn or levofloxicin Continue meropenem for now. (5) Atrial fibrillation with RVR: Code(s): I48.91 - Unspecified atrial fibrillation Status: Acute Assessment and Plan: The patient initially was AFib RVR in the emergency room but has auto converted. Echo showing EF 35-40%, diastolic dysfunction. Metoprolol started. He is maintaining sinus rhythm He was resumed on Xarelto but on hold now for possible bronchoscopy Monitor on tele (6) CHF (congestive heart failure): Code(s): I50.9 - Heart failure, unspecified Status: Acute Assessment and Plan: Echo from outside facility in 2020 was read as EF of 63% and impaired diastolic relaxation grade 1. Echo here showing EF 35-40%. Continue metoprolol but convert to Toprol XL at discharge. Added Entresto. Cons ider spironolactone. No empagliflozin given current urinary infection (7) CVA (cerebral vascular accident): Code(s): I63.9 - Cerebral infarction, unspecified Status: Acute Assessment and Plan: No residual issues. On Xarelto at home. Continue with Crestor. Holding Xarelto. PT/OT ordered (8) HLD (hyperlipidemia): Code(s): E78.5 - Hyperlipidemia, unspecified Status: Acute Assessment and Plan: Continue with Crestor (9) Benign prostatic hyperplasia without lower urinary tract symptoms: Code(s): N40.0 - Benign prostatic hyperplasia without lower urinary tract symptoms Status: Acute Assessment and Plan: Continue Flomax (10) Moderate protein-calorie malnutrition: Code(s): E44.0 - Moderate protein-calorie malnutrition Status: Acute Assessment and Plan: Moderate protein calorie malnutrition related to chronic loss of appetite as evidenced by intakes <75% needs >1 month; severe muscle wasting (temporalis, clavicles, shoulders) and severe fat loss (cheeks) Supplements ordered. Plan B12 Deficiency - replacement ordered. DVT Prophylaxis - SCDs Code status -DNR Disp - PT/OT Subjective Date/time seen: 03/15/25 17:48 Interval history: 79yod male with history of CVA, HTN, CHF, and history of ESBL bacteria here for a productive cough x 1 week. and generalized weakness. No CP but feels SOB. No n/v. Exam Narrative: AF 98.3 103/47 79 18 99% ra Gen - NARD Chest - bronchial BS in the left lung field CV -irregular irregular. Telemetry showing probably normal sinus rhythm with frequent PVCs Abd -soft. Scaphoid. Positive bowel sounds. Ext -no right pedal edema. Left [id number] amputation. Psych - Nml mood and affect Skin - Warm and dry Objective Data Vital Signs Vital Signs: Vital Signs - 24 hr 03/14/25 18:00 03/14/25 20:00 03/14/25 20:00 Temperature 97.8 F Pulse Rate 86 80 91 Respiratory Rate 28 H Blood Pressure 126/62 Pulse Oximetry 97 Oxygen Delivery Oxygen Flow Rate Fraction of Inspired Oxygen 03/14/25 20:38 03/14/25 20:57 03/14/25 20:58 Temperature Pulse Rate 88 81 81 Respiratory Rate 20 20 Blood Pressure Pulse Oximetry 95 Oxygen Delivery Nasal Cannula Oxygen Flow Rate 1 Fraction of Inspired Oxygen 24 03/14/25 21:12 03/14/25 22:00 03/15/25 00:00 Temperature Pulse Rate 85 85 90 Respiratory Rate 20 Blood Pressure Pulse Oximetry Oxygen Delivery Oxygen Flow Rate Fraction of Inspired Oxygen 03/15/25 00:00 03/15/25 01:33 03/15/25 01:45 Temperature 98.8 F Pulse Rate 84 93 108 H Respiratory Rate 28 H 20 20 Blood Pressure 99/52 L Pulse Oximetry 96 Oxygen Delivery Oxygen Flow Rate Fraction of Inspired Oxygen 03/15/25 02:00 03/15/25 04:00 03/15/25 04:00 Temperature 98.7 F Pulse Rate 94 79 84 Respiratory Rate 21 H Blood Pressure 116/38 L Pulse Oximetry 96 Oxygen Delivery Oxygen Flow Rate Fraction of Inspired Oxygen 03/15/25 06:00 03/15/25 08:00 03/15/25 08:00 Temperature 97.9 F Pulse Rate 88 82 88 Respiratory Rate 18 Blood Pressure 121/59 L Pulse Oximetry 95 Oxygen Delivery Oxygen Flow Rate Fraction of Inspired Oxygen 03/15/25 08:39 03/15/25 08:41 03/15/25 09:30 Temperature Pulse Rate 96 96 82 Respiratory Rate 18 16 Blood Pressure Pulse Oximetry 97 Oxygen Delivery Room Air Oxygen Flow Rate Fraction of Inspired Oxygen 03/15/25 09:37 03/15/25 10:00 03/15/25 10:06 Temperature 97.4 F L Pulse Rate 144 H 169 H 160 H Respiratory Rate 22 H Blood Pressure 141/48 H Pulse Oximetry 94 Oxygen Delivery Oxygen Flow Rate Fraction of Inspired Oxygen 03/15/25 11:37 03/15/25 12:00 03/15/25 12:03 Temperature 97.0 F L Pulse Rate 141 H 125 H 144 H Respiratory Rate 22 H Blood Pressure Pulse Oximetry 95 Oxygen Delivery Oxygen Flow Rate Fraction of Inspired Oxygen 03/15/25 12:03 03/15/25 12:30 03/15/25 12:52 Temperature Pulse Rate 113 H Respiratory Rate Blood Pressure 105/66 119/96 H 119/96 H Pulse Oximetry Oxygen Delivery Oxygen Flow Rate Fraction of Inspired Oxygen 03/15/25 13:49 03/15/25 14:00 03/15/25 16:00 Temperature 98.3 F Pulse Rate 76 76 79 Respiratory Rate 18 18 Blood Pressure 103/47 L Pulse Oximetry 99 Oxygen Delivery Oxygen Flow Rate Fraction of Inspired Oxygen 03/15/25 16:00 Temperature Pulse Rate 79 Respiratory Rate Blood Pressure Pulse Oximetry Oxygen Delivery Oxygen Flow Rate Fraction of Inspired Oxygen Intake/Output Intake/Output: Intake & Output 03/12/25 03/13/25 03/14/25 03/15/25 23:59 23:59 23:59 23:59 Intake Total 1146 1590 1110 235 Output Total 127 883 8526 875 Balance 246 264 -516 -676 Meds/Results Medications: Active Medications Generic Name Dose Route Start Last Admin Trade Name Freq PRN Reason Stop Dose Admin Acetaminophen 650 mg 03/12/25 23:24 03/12/25 23:29 Acetaminophen 325 Mg Tablet PO 650 mg Q6H PRN Administration Mild Pain (1-3) or Fever Acetylcysteine 200 mg 03/15/25 14:00 03/15/25 13:42 Acetylcysteine 20% Inhal Soln 800 Mg/4 Ml Vial INHALATION 200 mg Q6HRT MANOLO Administration Cyanocobalamin 1,000 mcg 03/14/25 09:00 03/15/25 09:30 Cyanocobalamin Inj 1,000 Mcg/Ml Vial IM 03/16/25 09:01 1,000 mcg DAILY MANOLO Administration Cyanocobalamin 1,000 mcg 03/14/25 09:00 03/15/25 09:30 Cyanocobalamin 1,000 Mcg Tablet PO 1,000 mcg QAM MANOLO Administration Doxycycline Hyclate 100 mg 03/12/25 21:00 03/15/25 09:30 Doxycycline Hyclate 100 Mg Tablet PO 03/17/25 09:01 100 mg Q12HR MANOLO Administration Guaifenesin 1,200 mg 03/15/25 11:30 03/15/25 11:43 Guaifenesin 12 Hr 600 Mg Tabcr PO 1,200 mg Q12HR MANOLO Administration Meropenem 1 gm/ Sodium 100 mls @ 200 mls/hr 03/12/25 00:00 03/15/25 11:23 Chloride IVPB 03/18/25 12:29 200 mls/hr Q12H MANOLO Administration Ipratropium Myton 0.5 mg 03/12/25 02:00 03/15/25 13:42 Ipratropium Br 0.02% Inh Soln 0.5 Mg/2.5 Ml Vial INHALATION 0.5 mg Q6HRT MANOLO Administration Levalbuterol HCl 0.63 mg 03/12/25 02:00 03/15/25 13:42 Levalbuterol Neb 1.25 Mg/3 Ml INHALATION 0.63 mg Q6HRT MANOLO Administration Metoprolol Tartrate 12.5 mg 03/12/25 21:00 03/15/25 09:30 Metoprolol Tartrate 12.5 Mg Tablet PO 12.5 mg Q12HR MANOLO Administration Rivaroxaban 2.5 mg 03/11/25 23:20 03/13/25 08:25 Rivaroxaban 2.5 Mg Tablet PO 2.5 mg On Hold: 03/13/25 18:52 Q12HR MANOLO Administration Rosuvastatin Calcium 40 mg 03/12/25 09:00 03/15/25 09:30 Rosuvastatin 20 Mg Tablet PO 40 mg DAILY MANOLO Administration Sacubitril/Valsartan 1 tab 03/13/25 21:00 03/15/25 09:30 Sacubitril/Valsartan 12-13 Mg Tablet PO 1 tab Q12HR MANOLO Administration Tamsulosin HCl 0.4 mg 03/15/25 21:00 Tamsulosin Hcl 0.4 Mg Capsule PO Q12HR [facility] Radiology Results: ITS Impressions Cervical Spine CT 03/11/25 14:33 IMPRESSION: HEAD: 1. No acute intracranial findings. C-SPINE: 1. No acute fracture. 2. Incompletely seen dense probable pneumonia right side. Chest x-ray today demonstrates worse pneumonia left lung. Recommend short interval follow-up chest x-rays and/or CT chest to exclude underlying lesion. Head CT 03/11/25 14:33 IMPRESSION: HEAD: 1. No acute intracranial findings. C-SPINE: 1. No acute fracture. 2. Incompletely seen dense probable pneumonia right side. Chest x-ray today demonstrates worse pneumonia left lung. Recommend short interval follow-up chest x-rays and/or CT chest to exclude underlying lesion. Chest CT 03/12/25 18:04 IMPRESSION: Increase in spiculated pleural-based nodule within the right upper lobe measuring up to 4.7 x 3.2 cm noted. There are several smaller adjacent spiculated nodules. This is concerning for malignancy. There is left perihilar airspace opacity extending into the upper and lower lobes with air bronchograms noted. There is small left pleural effusion. Consider follow-up bronchoscopy. All CT scans at this facility are performed using low dose modulation techniques as appropriate to perform exam including the following: automated exposure control; use of iterative reconstruction technique; adjustment of the mA and/or kV according to patient size (this includes techniques or standardized protocols for targeted exams where dose is matched to indication/reason for exam). Chest X-Ray 03/15/25 12:49 Impression: 1: Complete opacification left hemithorax which may represent a combination of pneumonia, atelectasis and/or pleural effusion. 2: Right upper lobe airspace disease with adjacent pleural thickening, suspicious for pneumonia versus scarring. Labs Labs: Laboratory Results - last 24 hr 03/15/25 03/15/25 03:30 10:04 WBC 11.1 H RBC 4.06 L Hgb 11.3 L Hct 36.7 L MCV 90.4 MCH 27.8 MCHC 30.8 L RDW 16.4 H Plt Count 248 MPV 9.2 Immature Gran % (Auto) 0.6 H Neut % (Auto) 87.4 H Lymph % (Auto) 5.3 L [place] % (Auto) 6.2 Eos % (Auto) 0.3 Baso % (Auto) 0.2 Lymph # (Auto) 0.59 L [place] # (Auto) 0.7 H Eos # (Auto) 0.0 Baso # (Auto) 0.0 Abs Immat Gran (auto) 0.07 H Absolute Neuts (auto) 9.7 H Absolute Nucleated RBC 0.000 Nucleated RBC % 0.0 PT 16.4 H INR 1.3 APTT 41.2 H Sodium 138 Potassium 3.8 Chloride 111 H Carbon Dioxide 25 Anion Gap 2 L BUN 17 Creatinine 0.74 Estim Creat Clear Calc 52 Estimated GFR > 60 Glucose 122 H POC Capillary Glucose 113 H Calcium 8.4 Phosphorus 3.3 Magnesium 1.9 C-Reactive Protein 15.9 H Albumin 2.6 L Procalcitonin 0.2
[2025-03-16] VITALS (31 sets, daily range): BP systolic 93–146; BP diastolic 37–77; PULSE 67–163; RESP 16–22; TEMP 36.4–37.2; O2SAT 94–98
[2025-03-16] MEDS: MEROPENEM 1 GM in SODIUM CHLORIDE 0.9% IV 100 ML 200 ML IVPB ×2 (00:17→12:04)
[2025-03-16] MEDS: ACETYLCYSTEINE 20% INHAL SOLN 800 MG/4 ML VIAL 200 MG INHALATION ×4 (02:27→20:52)
[2025-03-16] MEDS: IPRATROPIUM BR 0.02% INH SOLN 0.5 MG/2.5 ML VIAL INHALATION ×4 (02:27→20:52)
[2025-03-16 04:28] LABS: Hematocrit 36.4 % (42.0-52.0); Hemoglobin 11.2 g/dL (14.0-18.0); Immature Granulocyte Percent A 0.3 % (0-0.5); Lymphocytes Absolute Auto 0.60 K/mm3 (0.9-3.2); Mean Corpuscular HGB Conc 30.8 g/dl (32-36); Mean Corpuscular Hemoglobin 27.7 pg (26-34); Mean Corpuscular Volume 90.1 fl (80-100); Nucleated Red Blood Cells Absolute Auto 0.000 K/mm3 (0.0-0.012); Nucleated Red Blood Cells Perc 0.0 % (0.0-0.2); Platelet Count Result 256 k/mm3 (150-375); Red Blood Count 4.04 M/mm3 (4.6-6.20); White Blood Count 9.0 K/mm3 (4.5-10.0)
[2025-03-16 04:51] LABS: Albumin Level 2.6 g/dL (3.5-5.1); Anion Gap 3 mmol/L (4-12); Blood Urea Nitrogen 19 mg/dL (9-20); Calcium 8.5 mg/dL (8.4-10.2); Carbon Dioxide 24 mmol/L (22-30); Chloride 112 mmol/L (98-107); Estimated CRCL calculation 51 ml/min; Estimated Glomerular Filt Rate > 60; Glucose 102 mg/dL (65-110); Magnesium 2.1 mg/dL (1.6-2.3); Potassium 3.5 mmol/L (3.4-5.0); Sodium 139 mmol/L (137-145)
[2025-03-16] MEDS: ROSUVASTATIN 20 MG TABLET 40 MG PO (07:30)
[2025-03-16] MEDS: DOXYCYCLINE HYCLATE 100 MG TABLET PO ×2 (07:30→21:10)
[2025-03-16] MEDS: TAMSULOSIN HCL 0.4 MG CAPSULE PO ×2 (07:31→21:10)
[2025-03-16] MEDS: guaiFENesin 12 HR 600 MG TABCR 1200 MG PO ×2 (07:31→21:10)
[2025-03-16] MEDS: CYANOCOBALAMIN 1,000 MCG TABLET 1000 MCG PO (07:31)
[2025-03-16] MEDS: CYANOCOBALAMIN INJ 1,000 MCG/ML VIAL 1000 MCG IM (07:31)
[2025-03-16] MEDS: METOPROLOL TARTRATE 12.5 MG TABLET PO (07:31)
[2025-03-16 08:15] LABS: NT Pro B Type Natriuretic Pept 2520 pg/mL (19.9-100)
--- NOTE | 2025-03-16 10:36 | P.PNPL_ITS ---
Progress Note: A&P Assessment and Plan (1) Pneumonia: Qualifiers: Laterality: left Lung location: lower lobe of lung Pneumonia type: due to unspecified organism Qualified Code(s): J18.9 - Pneumonia, unspecified organism Code(s): J18.9 - Pneumonia, unspecified organism Status: Acute Assessment and Plan: 03/11/2025: Patient presented to the emergency room with weakness, and 1 week of productive cough. Blood pressure 104/62, heart rate 137, respirations 27, room air saturations 89%. 3 L nasal cannula 97%. Lungs were clear. White blood cell count 14.2, creatinine 1.01, COPD 5.1, urine with greater than 100 white blood cells, 4+ bacteria. Influenza, RSV and COVID RT PCR assay negative. Chest x-ray showed left perihilar consolidation. Admitted and treated for UTI and pneumonia. Patient was started on doxycycline and Rocephin. He was given 2 L IV fluid. Patient previously had a pneumonia with Klebsiella in 2023 that was resistant to ceftriaxone and switch to meropenem. Doxycycline was continued. MRSA swab negative. CT scan on 03/12/2025 demonstrated enlarging spiculated pleural based right upper lobe nodule now measuring 4.7 x 3.2 cm. Left perihilar consolidation with air bronchograms in the left upper and lower lobes. Mild apical predominant centrilobular emphysema. I reviewed the scan with the radiologist and was difficult to tell if there was any hilar or mediastinal lymphadenopathy on the left, is unclear if the left airway was compromised or if there was a left mass. There is a small left pleural effusion. 03/15/2025: Patient tells me he has improved since admission. He tells me he is breathing 50% back to his normal. His cough and phlegm production or better and the concurs. He has shortness of breath at rest. Room air saturation 97%. He is afebrile. White blood cell count 11.1. Creatinine 0.74. CRP has increased from 5.1 on 03/11/2025 to 15.9 today. Procalcitonin is 0.2 today. Yesterday patient was -160 mL. Cumulative he is positive 2.1 L since admission. His weight today is 51 kg. Chest x-ray today shows 90% whiteout of the left lung with shift to the mediastinum to the left. plan: Agree with treating patient for bacterial infection. He is on meropenem, started 03/12 day 4. He is on doxycycline, started 03/11, day 5. COVID, RSV, influenza RT PCR assay negative. Urine for streptococcal, urine for Legionella pending. I will send respiratory pathogen panel and serum mycoplasma IgM. Patient is weak and debilitated and now with near complete collapse of the left lower lobe. Suspect mucus plug. Will continue levalbuterol and ipratropium nebulizers q.6. Will add Mucomyst nebulizer q.6, coronary flutter valve, vest treatment t.i.d.. Will add guaifenesin 1200 mg p.o. b.i.d.. 03/16/2025: Patient tells me he is minimally improved. States he is breathing 50% back to his normal. He still has rest shortness of breath. His cough and clear phlegm are unchanged. When I enter the room he was on room air with saturations 96%. He was in AFib RVR rate 130. He is afebrile. White blood cell count 9.0, creatinine 0.75. BNP today is 2520. Yesterday he was positive 20 mL. Cumulative he is positive 2.3 L since admission. His weight today is 52.2 kg. he is receiving the vest treatment but noticed no changes in his phlegm production. Chest x-ray today with continued near complete collapse of the left lung, Right upper lobe and right lower lobe infiltrates. Plan: Patient is afebrile, leukocytosis has resolved, remains on room air. Continue meropenem, day 4, doxycycline day 5. Patient continued left lung collapse. he has AFib with RVR and I will discontinue levalbuterol nebulizer. I will continue ipratropium nebulizer, Mucomyst nebulizer and add dornase nebulizer today (if available). I will continue guaifenesin 1200 mg p.o. b.i.d., vest therapy t.i.d. and [place] flutter valve. Discussed with Dr. Lazaro, will follow with you. 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 03/15/25: Regarding his right upper lobe lung nodule on 09/26/2022 this was 9 x 6 mm. Patient declined workup. Repeat scan on 04/03/2023 demonstrated increased growth at 1.2 cm. Patient declined workup. I reviewed patient's serial CT scans of the chest with Radiology and right upper lobe lung lesion concerning for cancer. Difficult to assess left hilar, mediastinal and lung as there are dense consolidative infiltrates. Plan: I recommended to the patient that we treat his right pneumonia and once he is improved clinically perform a biopsy of the right upper lobe lung mass. At this time the patient told me he declined this and does not want to know if he has cancer and just wishes to ride the storm out. I informed him that there were treatments for cancer and he told me he does not want radiation or chemotherapy in the future. I told him surgery may be an option but given his comorbidities and debilitated state I suspect he would be too frail to undergo thoracotomy. Again he told me he wanted to wait and not perform any biopsies at this time. Will readdress after he has had time to talk to his daughter and who were in the room. 03/16/25: The patient tells me he is not interested in any further workup of his right upper lobe increasing lung mass. I informed the him that there are good treatments if this is cancer and he says he does not want treatment and does not want any further workup. He has spoken to his family regarding this decision. Plan: No further workup per patient's wishes. Subjective Date/time seen: 03/16/25 10:36 Interval history: 03/15/2025: This is a new pulmonary consult for right upper lobe lung mass and left lung collapse. 79-year-old man with Low-grade papillary urothelial carcinoma on 01/12/2020, prostate cancer status post 45 radiation treatments 2020, peripheral vascular disease status post left AKA, CVA, hypertension, congestive heart failure, right upper lobe lung nodule. Regarding his right upper lobe lung nodule on 09/26/2022 this was 9 x 6 mm. Patient declined workup. Repeat scan on 04/03/2023 demonstrated increased growth at 1.2 cm. Patient declined workup. 03/11/2025: Patient presented to the emergency room with weakness, and 1 week of productive cough. Blood pressure 104/62, heart rate 137, respirations 27, room air saturations 89%. 3 L nasal cannula 97%. Lungs were clear. White blood cell count 14.2, creatinine 1.01, COPD 5.1, urine with greater than 100 white blood cells, 4+ bacteria. Influenza, RSV and COVID RT PCR assay negative. Chest x-ray showed left perihilar consolidation. Admitted and treated for UTI and pneumonia. Patient was started on doxycycline and Rocephin. He was given 2 L IV fluid. Patient previously had a pneumonia with Klebsiella in 2023 that was resistant to ceftriaxone and switch to meropenem. Doxycycline was continued. MRSA swab negative. CT scan on 03/12/2025 demonstrated enlarging spiculated pleural based right upper lobe nodule now measuring 4.7 x 3.2 cm. Left perihilar consolidation with air bronchograms in the left upper and lower lobes. I reviewed the scan with the radiologist and was difficult to tell if there was any hilar or mediastinal lymphadenopathy on the left, is unclear if the left airway was compromised or if there was a left mass. There is a small left pleural effusion. 03/15/2025: Patient tells me he has improved since admission. He tells me he is breathing 50% back to his normal. His cough and phlegm production or better and the concurs. He has shortness of breath at rest. Room air saturation 97%. He is afebrile. White blood cell count 11.1. Creatinine 0.74. CRP has increased from 5.1 on 03/11/2025 to 15.9 today. Procalcitonin is 0.2 today. Yesterday patient was -160 mL. Cumulative he is positive 2.1 L since admission. His weight today is 51 kg. Chest x-ray today shows 90% whiteout of the left lung with shift to the mediastinum to the left. 03/16/2025: Patient tells me he is minimally improved. States he is breathing 50% back to his normal. He still has rest shortness of breath. His cough and clear phlegm are unchanged. When I enter the room he was on room air with saturations 96%. He was in AFib RVR rate 130. He is afebrile. White blood cell count 9.0, creatinine 0.75. BNP today is 2520. Yesterday he was positive 20 mL. Cumulative he is positive 2.3 L since admission. His weight today is 52.2 kg. he is receiving the vest treatment but noticed no changes in his phlegm production. Chest x-ray today with continued near complete collapse of the left lung, Right upper lobe and right lower lobe infiltrates. DATA: 03/12/25: Echo Summary 1. Complete two-dimensional, color flow and Doppler transthoracic echocardiogram is performed. 2. Left ventricular systolic function is mildly reduced, estimated at 35-40. 3. There is mildly increased left ventricular wall thickness. 4. Left ventricular chamber dimension is mildly enlarged. 5. The left ventricular diastolic function is abnormal. 6. Left atrial chamber dimension is mildly enlarged. 7. There is mild pulmonic regurgitation. Right Ventricle Right ventricular chamber dimension is normal. Right ventricular systolic function is normal. Left Atria Left atrial chamber dimension is mildly enlarged. Right Atria Right atrial chamber dimension is normal. 03/12/2025: CT diagnostic chest wo con HISTORY:perihilar PNA, smoker COMPARISON: 04/02/2023. TECHNIQUE: Axial images of the chest were obtained without infusion of intravenous contrast. Dose optimization technique was utilized. FINDINGS: The examination demonstrates increase in patchy nodular opacity within the right upper lobe which now measures up to 4.7 x 3.2 cm. There is left perihilar consolidation extending into the upper and lower lobes where there are air bronchograms noted. There is a small left pleural effusion. Cardiac size and mediastinal configuration are normal in appearance. No hilar or mediastinal lymphadenopathy is seen. The thoracic aorta is normal in caliber. Osseous structures are intact. Hepatic cysts are stable. IMPRESSION: Increase in spiculated pleural-based nodule within the right upper lobe measuring up to 4.7 x 3.2 cm noted. There are several smaller adjacent spiculated nodules. This is concerning for malignancy. There is left perihilar airspace opacity extending into the upper and lower lobes with air bronchograms noted. There is small left pleural effusion. Consider follow-up bronchoscopy. 04/02/2023; CT Scan of the Chest without Contrast: Clinical Indication: Lung nodule COMPARISON: 09/26/2022 Findings: There is no evidence of any significant mediastinal, hilar or axillary lymphadenopathy. There are atherosclerotic ossifications of the aorta and [place] coronary arteries. Status post probable CABG. There is no evidence of pleural or pericardial effusion. Right upper lobe pulmonary nodule is mild increase in size, now measuring up to 1.2 cm in diameter. Stable probable emphysematous change in right apical scarring. Images through the upper abdomen reveal small hepatic cysts. Impression: Right upper lobe pulmonary nodule is increased in size, now measuring 1.2 cm. Interval growth is suspicious for small neoplastic lesion. Consider attempted tissue sampling and/or PET/CT at this time. Stable emphysematous change and right apical scarring. 09/26/2022: EXAMINATION: CT diagnostic chest wo con INDICATION: R91.1 - Solitary pulmonary nodule COMPARISON: None FINDINGS: Mild emphysema with mild left and moderate right apical pleural-parenchymal scarring. 9 x 6 mm right upper lobe nodule. Small calcified right lower lobe nodule consistent with old granulomatous disease. Groundglass opacities and irregular septal line thickening at the dependent periphery of the right lower lobe most likely atelectasis with differential including less likely mild pulmonary edema or chronic interstitial fibrosis with nonspecific interstitial pneumonia (NSIP) pattern. No pleural effusion. Heart size normal. Atherosclerotic coronary artery calcification. Median sternotomy wires and mediastinal surgical clips are consistent with coronary artery bypass grafting. No pericardial effusion. Enlargement of the central pulmonary arteries consistent with pulmonary arterial hypertension. 2 cm low-attenuation cyst in the left hepatic lobe. A millimeter exophytic lesion at the right kidney which is more dense in the surrounding renal parenchyma, indeterminate but most likely a complex proteinaceous/hemorrhagic cyst. Suggestion of hydronephrosis at the upper pole the left kidney with effacement of the previously seen renal sin us fat. Mild thoracic spondylosis. IMPRESSION: 1. Mild emphysema with biapical pleural-parenchymal scarring, right greater than left. 2. Indeterminate 9 x 6 mm right upper lobe nodule. Correlate with any prior outside imaging and if long-term stability cannot be confirmed, would recommend follow-up chest CT in months. 3. Effacement of the renal sinus fat at the visualized upper pole the left phanin ey which is new since 06/20/2022 with suggestion of surface hydronephrosis. Recommend correlation with urinalysis and consider further evaluation with pre and postcontrast CT . Review of Systems Constitutional: Constitutional: Reports no additional constitutional complaints Eyes: Eyes: Reports no additional eye complaints ENT: Reports system reviewed and no additional complaints, except as documented Cardiovascular: Cardiovascular: Reports no additional cardiovascular complaints Respiratory: Respiratory: Reports no additional respiratory complaints Gastrointestinal: Gastrointestinal: Reports no additional gastrointestinal complaints Musculoskeletal: Musculoskeletal: Reports no additional musculoskeletal complaints Neurologic: Reports system reviewed and no additional complaints, except as documented Psychiatric: Psychiatric: Reports no additional psychiatric complaints Endocrine: Endocrine: Reports no additional endocrine complaints Hematologic/Lymphatic: Hematologic/Lymphatic: Reports no additional hematologic/lymphatic complaints Allergic/Immunologic: Allergic/Immunologic: Reports no additional allergic/immunologic complaints Exam Const: General: cooperative, comfortable and no acute distress Orientation/consciousness: oriented to person, oriented to place and oriented to time Other: weak, debilitated, cachectic HENMT: Head: normal to inspection Ears: hearing grossly normal bilaterally Eyes: General: appearance normal, both eyes and all related structures Neck: Neck: normal visual inspection Chest: Chest palpation & inspection: normal inspection of the chest Resp: Effort & Inspection: normal respiratory effort and able to speak in complete sentences Auscultation: no crackles, no rales, no rhonchi, no wheezes and diminished lung sounds Other: Minimal breath sounds left hemithorax. Cardio: Jugular venous distension: no JVD GI: Inspection: normal to inspection Skin: General skin exam: normal color Neuro: General: oriented to person, oriented to place and oriented to time Extrem: General: normal to inspection and no edema Psych: Appearance: grossly normal Objective Data Vital Signs Vital Signs: Vital Signs - 24 hr 03/15/25 11:37 03/15/25 12:00 03/15/25 12:03 Temperature 36.1 C L Pulse Rate 141 H 125 H 144 H Respiratory Rate 22 H Blood Pressure Pulse Oximetry 95 Oxygen Delivery Fraction of Inspired Oxygen 03/15/25 12:03 03/15/25 12:30 03/15/25 12:52 Temperature Pulse Rate 113 H Respiratory Rate Blood Pressure 105/66 119/96 H 119/96 H Pulse Oximetry Oxygen Delivery Fraction of Inspired Oxygen 03/15/25 13:49 03/15/25 14:00 03/15/25 16:00 Temperature 36.8 C Pulse Rate 76 76 79 Respiratory Rate 18 18 Blood Pressure 103/47 L Pulse Oximetry 99 Oxygen Delivery Fraction of Inspired Oxygen 03/15/25 16:00 03/15/25 18:00 03/15/25 20:00 Temperature 36.3 C L Pulse Rate 79 90 83 Respiratory Rate 20 Blood Pressure 105/48 L Pulse Oximetry 97 Oxygen Delivery Fraction of Inspired Oxygen 03/15/25 20:00 03/15/25 20:40 03/15/25 20:55 Temperature Pulse Rate 77 79 80 Respiratory Rate 18 18 Blood Pressure Pulse Oximetry Oxygen Delivery Fraction of Inspired Oxygen 03/15/25 21:15 03/15/25 21:26 03/15/25 22:00 Temperature Pulse Rate 88 73 Respiratory Rate Blood Pressure Pulse Oximetry 96 Oxygen Delivery Room Air Fraction of Inspired Oxygen 21 03/16/25 00:00 03/16/25 00:00 03/16/25 02:00 Temperature 36.8 C Pulse Rate 76 73 83 Respiratory Rate 16 Blood Pressure 93/51 L Pulse Oximetry 94 Oxygen Delivery Fraction of Inspired Oxygen 03/16/25 02:28 03/16/25 02:44 03/16/25 04:00 Temperature Pulse Rate 88 90 86 Respiratory Rate 18 18 Blood Pressure Pulse Oximetry Oxygen Delivery Fraction of Inspired Oxygen 03/16/25 04:00 03/16/25 06:00 03/16/25 07:31 Temperature 36.9 C Pulse Rate 89 81 146 H Respiratory Rate 20 Blood Pressure 132/57 L Pulse Oximetry 96 Oxygen Delivery Fraction of Inspired Oxygen 03/16/25 07:31 03/16/25 07:59 03/16/25 08:19 Temperature 36.4 C L Pulse Rate 163 H 131 H 125 H Respiratory Rate 22 H 18 Blood Pressure 146/58 H 96/53 L Pulse Oximetry 95 Oxygen Delivery Fraction of Inspired Oxygen 03/16/25 08:40 03/16/25 08:46 03/16/25 08:50 Temperature Pulse Rate 118 H 125 H 76 Respiratory Rate 18 Blood Pressure 96/53 L 96/53 L Pulse Oximetry Oxygen Delivery Fraction of Inspired Oxygen 03/16/25 10:27 Temperature Pulse Rate 80 Respiratory Rate Blood Pressure 104/54 L Pulse Oximetry Oxygen Delivery Fraction of Inspired Oxygen Intake/Output Intake/Output: Intake & Output 03/13/25 03/14/25 03/15/25 03/16/25 23:59 23:59 23:59 23:59 Intake Total 1590 1110 895 360 Output Total 700 1270 875 350 Balance 890 -160 20 10 Meds/Results Medications: Active Medications Generic Name Dose Route Start Last Admin Trade Name Freq PRN Reason Stop Dose Admin Acetaminophen 650 mg 03/12/25 23:24 03/12/25 23:29 Acetaminophen 325 Mg Tablet PO 650 mg Q6H PRN Administration Mild Pain (1-3) or Fever Acetylcysteine 200 mg 03/15/25 14:00 03/16/25 08:18 Acetylcysteine 20% Inhal Soln 800 Mg/4 Ml Vial INHALATION 200 mg Q6HRT MANOLO Administration Cyanocobalamin 1,000 mcg 03/14/25 09:00 03/16/25 07:31 Cyanocobalamin 1,000 Mcg Tablet PO 1,000 mcg QAM MANOLO Administration Doxycycline Hyclate 100 mg 03/12/25 21:00 03/16/25 07:30 Doxycycline Hyclate 100 Mg Tablet PO 03/17/25 09:01 100 mg Q12HR MANOLO Administration Guaifenesin 1,200 mg 03/15/25 11:30 03/16/25 07:31 Guaifenesin 12 Hr 600 Mg Tabcr PO 1,200 mg Q12HR MANOLO Administration Meropenem 1 gm/ Sodium 100 mls @ 200 mls/hr 03/12/25 00:00 03/16/25 00:17 Chloride IVPB 03/18/25 12:29 200 mls/hr Q12H MANOLO Administration Amiodarone HCl/Dextrose 360 mg in 200 mls @ 33.333 mls/hr 03/16/25 08:20 Nexterone 360 Mg/D5w 200 Ml IV CONT 03/16/25 14:19 .Q6H ONE 1 MG/MIN Amiodarone HCl/Dextrose 360 mg in 200 mls @ 16.667 mls/hr 03/16/25 14:20 Nexterone 360 Mg/D5w 200 Ml IV CONT .Q12H MANOLO 0.5 MG/MIN Ipratropium [place] 0.5 mg 03/12/25 02:00 03/16/25 08:18 Ipratropium Br 0.02% Inh Soln 0.5 Mg/2.5 Ml Vial INHALATION 0.5 mg Q6HRT MANOLO Administration Metoprolol Tartrate 12.5 mg 03/12/25 21:00 03/16/25 07:31 Metoprolol Tartrate 12.5 Mg Tablet PO 12.5 mg Q12HR MANOLO Administration Rivaroxaban 2.5 mg 03/11/25 23:20 03/13/25 08:25 Rivaroxaban 2.5 Mg Tablet PO 2.5 mg On Hold: 03/13/25 18:52 Q12HR MANOLO Administration Rosuvastatin Calcium 40 mg 03/12/25 09:00 03/16/25 07:30 Rosuvastatin 20 Mg Tablet PO 40 mg DAILY MANOLO Administration Sacubitril/Valsartan 1 tab 03/13/25 21:00 03/16/25 10:28 Sacubitril/Valsartan 12-13 Mg Tablet PO Not Given Q12HR MANOLO Tamsulosin HCl 0.4 mg 03/15/25 21:00 03/16/25 07:31 Tamsulosin Hcl 0.4 Mg Capsule PO 0.4 mg Q12HR MANOLO Administration Radiology Results: ITS Impressions Cervical Spine CT 03/11/25 14:33 IMPRESSION: HEAD: 1. No acute intracranial findings. C-SPINE: 1. No acute fracture. 2. Incompletely seen dense probable pneumonia right side. Chest x-ray today demonstrates worse pneumonia left lung. Recommend short interval follow-up chest x-rays and/or CT chest to exclude underlying lesion. Head CT 03/11/25 14:33 IMPRESSION: HEAD: 1. No acute intracranial findings. C-SPINE: 1. No acute fracture. 2. Incompletely seen dense probable pneumonia right side. Chest x-ray today dem onstrates worse pneumonia left lung. Recommend short interval follow-up chest x- rays and/or CT chest to exclude underlying lesion. Chest CT 03/12/25 18:04 IMPRESSION: Increase in spiculated pleural-based nodule within the right upper lobe measuring up to 4.7 x 3.2 cm noted. There are several smaller adjacent spiculated nodules. This is concerning for malignancy. There is left perihilar airspace opacity extending into the upper and lower lobes with air bronchograms noted. There is small left pleural effusion. Consider follow-up bronchoscopy. All CT scans at this facility are performed using low dose modulation techniques as appropriate to perform exam including the following: automated exposure control; use of iterative reconstruction technique; adjustment of the mA and/or kV according to patient size (this includes techniques or standardized protocols for targeted exams where dose is matched to indication/reason for exam). Chest X-Ray 03/16/25 08:40 IMPRESSION: 1. No significant change or worsening. Labs Labs: Laboratory Results - last 24 hr 03/16/25 03:49 WBC 9.0 RBC 4.04 L Hgb 11.2 L Hct 36.4 L MCV 90.1 MCH 27.7 MCHC 30.8 L RDW 16.4 H Plt Count 256 MPV 9.2 Immature Gran % (Auto) 0.3 Neut % (Auto) 85.6 H Lymph % (Auto) 6.7 L [place] % (Auto) 5.9 Eos % (Auto) 1.2 Baso % (Auto) 0.3 Lymph # (Auto) 0.60 L [place] # (Auto) 0.5 Eos # (Auto) 0.1 Baso # (Auto) 0.0 Abs Immat Gran (auto) 0.03 Absolute Neuts (auto) 7.7 H Absolute Nucleated RBC 0.000 Nucleated RBC % 0.0 Sodium 139 Potassium 3.5 Chloride 112 H Carbon Dioxide 24 Anion Gap 3 L BUN 19 Creatinine 0.75 Estim Creat Clear Calc 51 Estimated GFR > 60 Glucose 102 Calcium 8.5 Phosphorus 3.1 Magnesium 2.1 NT-Pro-B Natriuret Pep 2520 H Albumin 2.6 L
--- NOTE | 2025-03-16 10:46 | PCPTNOTE ---
Attempted PT evaluation, per nursing, pt has a high resting HR. Nursing to talk with hospitalist prior to therapy evaluation. Will follow.
[2025-03-16] MEDS: DORNASE ALFA INH SOLN 1 MG/ML 2.5 ML AMP 2.5 MG INHALATION ×2 (14:10→20:52)
--- NOTE | 2025-03-16 15:34 | PM.IMPN2 ---
Assessment and Plan Assessment and Plan (1) Pneumonia: Code(s): J18.9 - Pneumonia, unspecified organism Status: Acute Assessment and Plan: Patient presents with SOB and cough and found to have sepsis with tachycardia, tachypnea, hypoxia, leukocytosis and lactic acidosis. CXR showing left perihilar consolidative process possibly representing pneumonia. Started on Rocephin and doxycycline for community acquired pneumonia but changed to meropenem for the possibility of drug resistant UTI. MRSA nasal swab negative. Blood culture no growth to date. Concern for malignancy given the weight loss and known right upper lobe lung mass for many years but has declined evaluation. CT of the chest shows increased right upper lobe mass now measuring 4.7 cm (0.9cm in 2022) with several smaller adjacent spiculated nodules concerning for malignancy. There is also left perihilar airspace opacity extending into the upper and lower lobes with air bronchograms. Spoke with patient and family in the room about findings and direction on how to proceed and patient wished to proceed with pulmonary consult and possible bronchoscopy. WBC normal now. On room air. Pulmonary consulted and appreciate their input. CXR showing complete white out of left lung for the past 2 days Spoke with patient about comfort measures but he wants the PNA and cough treated and does not want the RUL lung mass evaluated. BNP 2520. With low EF, consider pulm edema contributing to these findings but felt less likely and BP soft and he remains on room air so hold on Lasix. Continue CPT with vest therapy. Continue mucinex, nebulizer treatments and mucomyst. Continue IV antibiotics. (2) Sepsis: Qualifiers: Acute respiratory failure type: with hypoxia Sepsis acute organ dysfunction status: with acute organ dysfunction Sepsis type: sepsis due to unspecified organism Severe sepsis acute organ dysfunction type: acute respiratory failure Severe sepsis shock status: without septic shock Qualified Code(s): A41.9 - Sepsis, unspecified organism; R65.20 - Severe sepsis without septic shock; J96.01 - Acute respiratory failure with hypoxia Code(s): A41.9 - Sepsis, unspecified organism Status: Acute Assessment and Plan: As above (3) Pulmonary mass: Code(s): R91.8 - Other nonspecific abnormal finding of lung field Status: Acute Assessment and Plan: CT chest in September 2022 showing RUL mass measuring 0.9cm. CT of the chest here shows increased RUL mass now measuring 4.7 cm with several smaller adjacent spiculated nodules concerning for malignancy. May also have left perihilar involvement as well resulting in collapse. Patient now not agreeable for evaluation. Treat PNA and provide symptomatic care (4) Urinary tract infection: Code(s): N39.0 - Urinary tract infection, site not specified Status: Acute Assessment and Plan: Urine and blood cultures were collected. Rocephin started for pneumonia but patinet has hx of UTI with ESBL Klebsiella pneumoniae so abx was switched to meropenem (03/12). BCx NGTD UCx growing Klebsiella 50-100K colonies sensitive to meropenem and ertapenem but not rocephin, zosyn or levofloxicin Continue meropenem for 7 days (5) Atrial fibrillation with RVR: Code(s): I48.91 - Unspecified atrial fibrillation Status: Acute Assessment and Plan: The patient initially was AFib RVR in the emergency room but has auto converted. Echo showing EF 35-40%, diastolic dysfunction. Xarelto resumed but now on hold now for possible bronchoscopy. Metoprolol was started. He is in and out of AFib/RVR. Metoprolol IV given yesterday with benefit but AMio given today due to low BP before converting. Will advance metoprolol. Monitor on tele (6) CHF (congestive heart failure): Code(s): I50.9 - Heart failure, unspecified Status: Acute Assessment and Plan: Echo from outside facility in 2020 was read as EF of 63% and impaired diastolic relaxation grade 1. Echo here showing EF 35-40%. Continue metoprolol tartrate but convert to Toprol XL at discharge. Entresto added. Consider spironolactone. No empagliflozin given current urinary infection (7) CVA (cerebral vascular accident): Code(s): I63.9 - Cerebral infarction, unspecified Status: Acute Assessment and Plan: No residual issues. On Xarelto at home. Continue with Crestor. Holding Xarelto currently. PT/OT ordered (8) HLD (hyperlipidemia): Code(s): E78.5 - Hyperlipidemia, unspecified Status: Acute Assessment and Plan: Continue with Crestor (9) Benign prostatic hyperplasia without lower urinary tract symptoms: Code(s): N40.0 - Benign prostatic hyperplasia without lower urinary tract symptoms Status: Acute Assessment and Plan: Continue Flomax (10) Moderate protein-calorie malnutrition: Code(s): E44.0 - Moderate protein-calorie malnutrition Status: Acute Assessment and Plan: Moderate protein calorie malnutrition related to chronic loss of appetite as evidenced by intakes <75% needs >1 month; severe muscle wasting (temporalis, clavicles, shoulders) and severe fat loss (cheeks) Supplements ordered. Plan B12 Deficiency - replacement ordered. DVT Prophylaxis - SCDs Code status -DNR Disp - PT/OT Subjective Date/time seen: 03/16/25 15:34 Interval history: 79yod male with history of CVA, HTN, CHF, and history of ESBL bacteria here for a productive cough x 1 week. and generalized weakness. Afib this morning but converted after a dose of AMiodarone (given because BP was soft). Slept off and on. Cough productive of clear sputum. Up to the chair earlier today. Exam Narrative: AF 97.7 120/37 94 18 95% ra Gen - NARD lying right side down. Chest - bronchial BS in the left lung field with improved air exchange, nml RR CV - RRR with extra beats. Tele showing sinus rhythm with PVCs Abd -soft. Scaphoid. Positive bowel sounds. Ext -no right pedal edema. Left [id number] amputation. Psych - Nml mood and affect Skin - Warm and dry Objective Data Vital Signs Vital Signs: Vital Signs - 24 hr 03/15/25 16:00 03/15/25 16:00 03/15/25 18:00 Temperature 98.3 F Pulse Rate 79 79 90 Respiratory Rate 18 Blood Pressure 103/47 L Pulse Oximetry 99 Oxygen Delivery Fraction of Inspired Oxygen 03/15/25 20:00 03/15/25 20:00 03/15/25 20:40 Temperature 97.3 F L Pulse Rate 83 77 79 Respiratory Rate 20 18 Blood Pressure 105/48 L Pulse Oximetry 97 Oxygen Delivery Fraction of Inspired Oxygen 03/15/25 20:55 03/15/25 21:15 03/15/25 21:26 Temperature Pulse Rate 80 88 Respiratory Rate 18 Blood Pressure Pulse Oximetry 96 Oxygen Delivery Room Air Fraction of Inspired Oxygen 21 03/15/25 22:00 03/16/25 00:00 03/16/25 00:00 Temperature 98.2 F Pulse Rate 73 76 73 Respiratory Rate 16 Blood Pressure 93/51 L Pulse Oximetry 94 Oxygen Delivery Fraction of Inspired Oxygen 03/16/25 02:00 03/16/25 02:28 03/16/25 02:44 Temperature Pulse Rate 83 88 90 Respiratory Rate 18 18 Blood Pressure Pulse Oximetry Oxygen Delivery Fraction of Inspired Oxygen 03/16/25 04:00 03/16/25 04:00 03/16/25 06:00 Temperature 98.4 F Pulse Rate 86 89 81 Respiratory Rate 20 Blood Pressure 132/57 L Pulse Oximetry 96 Oxygen Delivery Fraction of Inspired Oxygen 03/16/25 07:31 03/16/25 07:31 03/16/25 07:59 Temperature 97.5 F L Pulse Rate 146 H 163 H 131 H Respiratory Rate 22 H Blood Pressure 146/58 H 96/53 L Pulse Oximetry 95 Oxygen Delivery Fraction of Inspired Oxygen 03/16/25 08:00 03/16/25 08:19 03/16/25 08:40 Temperature Pulse Rate 139 H 125 H 118 H Respiratory Rate 18 18 Blood Pressure Pulse Oximetry Oxygen Delivery Fraction of Inspired Oxygen 03/16/25 08:46 03/16/25 08:50 03/16/25 09:04 Temperature Pulse Rate 125 H 76 83 Respiratory Rate Blood Pressure 96/53 L 96/53 L Pulse Oximetry Oxygen Delivery Fraction of Inspired Oxygen 03/16/25 09:30 03/16/25 10:27 03/16/25 11:11 Temperature 98.0 F Pulse Rate 78 80 77 Respiratory Rate 18 Blood Pressure 104/54 L 98/53 L Pulse Oximetry 97 Oxygen Delivery Fraction of Inspired Oxygen 03/16/25 11:14 03/16/25 12:00 03/16/25 13:18 Temperature Pulse Rate 89 Respiratory Rate Blood Pressure 94/42 L Pulse Oximetry Oxygen Delivery Room Air Fraction of Inspired Oxygen 03/16/25 13:57 03/16/25 14:13 03/16/25 14:19 Temperature Pulse Rate 94 103 H 107 H Respiratory Rate 20 18 Blood Pressure Pulse Oximetry Oxygen Delivery Fraction of Inspired Oxygen 03/16/25 15:28 Temperature 97.7 F Pulse Rate 94 Respiratory Rate 18 Blood Pressure 120/37 L Pulse Oximetry 95 Oxygen Delivery Fraction of Inspired Oxygen Intake/Output Intake/Output: Intake & Output 03/13/25 03/14/25 03/15/25 03/16/25 23:59 23:59 23:59 23:59 Intake Total 1590 1110 895 580 Output Total 700 1270 875 350 Balance 890 -160 20 230 Meds/Results Medications: Active Medications Generic Name Dose Route Start Last Admin Trade Name Freq PRN Reason Stop Dose Admin Acetaminophen 650 mg 03/12/25 23:24 03/12/25 23:29 Acetaminophen 325 Mg Tablet PO 650 mg Q6H PRN Administration Mild Pain (1-3) or Fever Acetylcysteine 200 mg 03/15/25 14:00 03/16/25 14:09 Acetylcysteine 20% Inhal Soln 800 Mg/4 Ml Vial INHALATION 200 mg Q6HRT MANOLO Administration Cyanocobalamin 1,000 mcg 03/14/25 09:00 03/16/25 07:31 Cyanocobalamin 1,000 Mcg Tablet PO 1,000 mcg QAM MANOLO Administration Dornase Vinicius 2.5 mg 03/16/25 11:01 03/16/25 14:10 Dornase Vinicius Inh Soln 1 Mg/Ml 2.5 Ml Amp INHALATION 04/15/25 11:00 2.5 mg Q12HRT MANOLO Administration Doxycycline Hyclate 100 mg 03/12/25 21:00 03/16/25 07:30 Doxycycline Hyclate 100 Mg Tablet PO 03/17/25 09:01 100 mg Q12HR MANOLO Administration Guaifenesin 1,200 mg 03/15/25 11:30 03/16/25 07:31 Guaifenesin 12 Hr 600 Mg Tabcr PO 1,200 mg Q12HR MANOLO Administration Meropenem 1 gm/ Sodium 100 mls @ 200 mls/hr 03/12/25 00:00 03/16/25 12:04 Chloride IVPB 03/18/25 12:29 200 mls/hr Q12H MANOLO Administration Ipratropium [place] 0.5 mg 03/12/25 02:00 03/16/25 14:10 Ipratropium Br 0.02% Inh Soln 0.5 Mg/2.5 Ml Vial INHALATION 0.5 mg Q6HRT MANOLO Administration Metoprolol Tartrate 12.5 mg 03/12/25 21:00 03/16/25 07:31 Metoprolol Tartrate 12.5 Mg Tablet PO 12.5 mg Q12HR MANOLO Administration Rivaroxaban 2.5 mg 03/11/25 23:20 03/13/25 08:25 Rivaroxaban 2.5 Mg Tablet PO 2.5 mg On Hold: 03/13/25 18:52 Q12HR MANOLO Administration Rosuvastatin Calcium 40 mg 03/12/25 09:00 03/16/25 07:30 Rosuvastatin 20 Mg Tablet PO 40 mg DAILY MANOLO Administration Sacubitril/Valsartan 1 tab 03/13/25 21:00 03/16/25 10:28 Sacubitril/Valsartan 12-13 Mg Tablet PO Not Given Q12HR MANOLO Tamsulosin HCl 0.4 mg 03/15/25 21:00 03/16/25 07:31 Tamsulosin Hcl 0.4 Mg Capsule PO 0.4 mg Q12HR MANOLO Administration Radiology Results: ITS Impressions Cervical Spine CT 03/11/25 14:33 IMPRESSION: HEAD: 1. No acute intracranial findings. C-SPINE: 1. No acute fracture. 2. Incompletely seen dense probable pneumonia right side. Chest x-ray today demonstrates worse pneumonia left lung. Recommend short interval follow-up chest x-rays and/or CT chest to exclude underlying lesion. Head CT 03/11/25 14:33 IMPRESSION: HEAD: 1. No acute intracranial findings. C-SPINE: 1. No acute fracture. 2. Incompletely seen dense probable pneumonia right side. Chest x-ray today demonstrates worse pneumonia left lung. Recommend short interval follow-up chest x-rays and/or CT chest to exclude underlying lesion. Chest CT 03/12/25 18:04 IMPRESSION: Increase in spiculated pleural-based nodule within the right upper lobe measuring up to 4.7 x 3.2 cm noted. There are several smaller adjacent spiculated nodules. This is concerning for malignancy. There is left perihilar airspace opacity extending into the upper and lower lobes with air bronchograms noted. There is small left pleural effusion. Consider follow-up bronchoscopy. All CT scans at this facility are performed using low dose modulation techniques as appropriate to perform exam including the following: automated exposure control; use of iterative reconstruction technique; adjustment of the mA and/or kV according to patient size (this includes techniques or standardized protocols for targeted exams where dose is matched to indication/reason for exam). Chest X-Ray 03/16/25 08:40 IMPRESSION: 1. No significant change or worsening. Labs Labs: Laboratory Results - last 24 hr 12/23/25 03:49 WBC 9.0 RBC 4.04 L Hgb 11.2 L Hct 36.4 L MCV 90.1 MCH 27.7 MCHC 30.8 L RDW 16.4 H Plt Count 256 MPV 9.2 Immature Gran % (Auto) 0.3 Neut % (Auto) 85.6 H Lymph % (Auto) 6.7 L [place] % (Auto) 5.9 Eos % (Auto) 1.2 Baso % (Auto) 0.3 Lymph # (Auto) 0.60 L [place] # (Auto) 0.5 Eos # (Auto) 0.1 Baso # (Auto) 0.0 Abs Immat Gran (auto) 0.03 Absolute Neuts (auto) 7.7 H Absolute Nucleated RBC 0.000 Nucleated RBC % 0.0 Sodium 139 Potassium 3.5 Chloride 112 H Carbon Dioxide 24 Anion Gap 3 L BUN 19 Creatinine 0.75 Estim Creat Clear Calc 51 Estimated GFR > 60 Glucose 102 Calcium 8.5 Phosphorus 3.1 Magnesium 2.1 NT-Pro-B Natriuret Pep 2520 H Albumin 2.6 L
[2025-03-16] MEDS: METOPROLOL TARTRATE 25 MG TABLET PO (21:10)
[2025-03-16] MEDS: SACUBITRIL/VALSARTAN 12-13 MG TABLET 1 TAB PO (21:11)
--- NOTE | 2025-03-16 21:55 | PC.NURSE ---
Report given to SHERYL Dos Santos
[2025-03-17] VITALS (27 sets, daily range): BP systolic 104–125; BP diastolic 42–50; PULSE 66–94; RESP 16–23; TEMP 36.2–37.1; O2SAT 90–97
[2025-03-17] MEDS: MEROPENEM 1 GM in SODIUM CHLORIDE 0.9% IV 100 ML 200 ML IVPB ×2 (00:27→13:11)
[2025-03-17] MEDS: IPRATROPIUM BR 0.02% INH SOLN 0.5 MG/2.5 ML VIAL INHALATION ×4 (01:18→20:37)
[2025-03-17] MEDS: ACETYLCYSTEINE 20% INHAL SOLN 800 MG/4 ML VIAL 200 MG INHALATION ×4 (01:18→20:37)
[2025-03-17 04:33] LABS: Hematocrit 34.6 % (42.0-52.0); Hemoglobin 10.8 g/dL (14.0-18.0); Mean Corpuscular HGB Conc 31.2 g/dl (32-36); Mean Corpuscular Hemoglobin 28.0 pg (26-34); Mean Corpuscular Volume 89.6 fl (80-100); Platelet Count Result 270 k/mm3 (150-375); Red Blood Count 3.86 M/mm3 (4.6-6.20); White Blood Count 9.1 K/mm3 (4.5-10.0)
[2025-03-17 05:05] LABS: Anion Gap 2 mmol/L (4-12); Blood Urea Nitrogen 22 mg/dL (9-20); Calcium 8.5 mg/dL (8.4-10.2); Carbon Dioxide 24 mmol/L (22-30); Chloride 113 mmol/L (98-107); Estimated CRCL calculation 52 ml/min; Estimated Glomerular Filt Rate > 60; Glucose 106 mg/dL (65-110); Potassium 3.7 mmol/L (3.4-5.0); Sodium 139 mmol/L (137-145)
[2025-03-17] MEDS: METOPROLOL TARTRATE 25 MG TABLET PO ×2 (08:24→20:58)
[2025-03-17] MEDS: guaiFENesin 12 HR 600 MG TABCR 1200 MG PO ×2 (08:25→20:58)
[2025-03-17] MEDS: DOXYCYCLINE HYCLATE 100 MG TABLET PO (08:25)
[2025-03-17] MEDS: CYANOCOBALAMIN 1,000 MCG TABLET 1000 MCG PO (08:25)
[2025-03-17] MEDS: ROSUVASTATIN 20 MG TABLET 40 MG PO (08:25)
[2025-03-17] MEDS: TAMSULOSIN HCL 0.4 MG CAPSULE PO ×2 (08:25→20:58)
[2025-03-17] MEDS: SACUBITRIL/VALSARTAN 12-13 MG TABLET 1 TAB PO ×2 (08:25→20:58)
[2025-03-17] MEDS: DORNASE ALFA INH SOLN 1 MG/ML 2.5 ML AMP 2.5 MG INHALATION ×2 (08:33→20:37)
--- NOTE | 2025-03-17 08:56 | PM.PNPUL ---
Progress Note: A&P Assessment and Plan (1) Pneumonia: Qualifiers: Laterality: left Lung location: lower lobe of lung Pneumonia type: due to unspecified organism Qualified Code(s): J18.9 - Pneumonia, unspecified organism Code(s): J18.9 - Pneumonia, unspecified organism Status: Acute Assessment and Plan: 03/11/2025: Patient presented to the emergency room with weakness, and 1 week of productive cough. Blood pressure 104/62, heart rate 137, respirations 27, room air saturations 89%. 3 L nasal cannula 97%. Lungs were clear. White blood cell count 14.2, creatinine 1.01, COPD 5.1, urine with greater than 100 white blood cells, 4+ bacteria. Influenza, RSV and COVID RT PCR assay negative. Chest x-ray showed left perihilar consolidation. Admitted and treated for UTI and pneumonia. Patient was started on doxycycline and Rocephin. He was given 2 L IV fluid. Patient previously had a pneumonia with Klebsiella in 2023 that was resistant to ceftriaxone and switch to meropenem. Doxycycline was continued. MRSA swab negative. CT scan on 03/12/2025 demonstrated enlarging spiculated pleural based right upper lobe nodule now measuring 4.7 x 3.2 cm. Left perihilar consolidation with air bronchograms in the left upper and lower lobes. Mild apical predominant centrilobular emphysema. I reviewed the scan with the radiologist and was difficult to tell if there was any hilar or mediastinal lymphadenopathy on the left, is unclear if the left airway was compromised or if there was a left mass. There is a small left pleural effusion. 03/15/2025: Patient tells me he has improved since admission. He tells me he is breathing 50% back to his normal. His cough and phlegm production or better and the concurs. He has shortness of breath at rest. Room air saturation 97%. He is afebrile. White blood cell count 11.1. Creatinine 0.74. CRP has increased from 5.1 on 03/11/2025 to 15.9 today. Procalcitonin is 0.2 today. Yesterday patient was -160 mL. Cumulative he is positive 2.1 L since admission. His weight today is 51 kg. Chest x-ray today shows 90% whiteout of the left lung with shift to the mediastinum to the left. plan: Agree with treating patient for bacterial infection. He is on meropenem, started 03/12 day 4. He is on doxycycline, started 03/11, day 5. COVID, RSV, influenza RT PCR assay negative. Urine for streptococcal, urine for Legionella pending. I will send respiratory pathogen panel and serum mycoplasma IgM. Patient is weak and debilitated and now with near complete collapse of the left lower lobe. Suspect mucus plug. Will continue levalbuterol and ipratropium nebulizers q.6. Will add Mucomyst nebulizer q.6, coronary flutter valve, vest treatment t.i.d.. Will add guaifenesin 1200 mg p.o. b.i.d.. 03/16/2025: Patient tells me he is minimally improved. States he is breathing 50% back to his normal. He still has rest shortness of breath. His cough and clear phlegm are unchanged. When I enter the room he was on room air with saturations 96%. He was in AFib RVR rate 130. He is afebrile. White blood cell count 9.0, creatinine 0.75. BNP today is 2520. Yesterday he was positive 20 mL. Cumulative he is positive 2.3 L since admission. His weight today is 52.2 kg. he is receiving the vest treatment but noticed no changes in his phlegm production. Chest x-ray today with continued near complete collapse of the left lung, Right upper lobe and right lower lobe infiltrates. Plan: Patient is afebrile, leukocytosis has resolved, remains on room air. Continue meropenem, day 5, doxycycline day 5. Patient continued left lung collapse. he has AFib with RVR and I will discontinue levalbuterol nebulizer. I will continue ipratropium nebulizer, Mucomyst nebulizer and add dornase nebulizer today (if available). I will continue guaifenesin 1200 mg p.o. b.i.d., vest therapy t.i.d. and Cornet flutter valve. 03/17/2025: Patient tells me he is improved. States he is breathing 75% back to his normal. He tells me he is not short of breath at rest and had no dyspnea on exertion when pivoting to the chair. His cough Is minimally improved and he still has clear phlegm. When I enter the room he was on room air with saturations 98%. He was in sinus with PVC and PAC. He is afebrile. White blood cell count 9.1, creatinine 0.75. Yesterday he was positive 730 mL. Cumulative he is positive 3.0 L. His weight today is 54.5. He is receiving the vest treatment but noticed no changes in his phlegm production. He notices no change with a nebulizers. Chest x-ray today with continued near complete collapse of the left lung, Right upper lobe and right lower lobe infiltrates. Plan: Patient is afebrile, leukocytosis has resolved, remains on room air. S/P ceftriaxone X 1 on 03/11. s/p doxycycline 03/12 to 03/17 and continue meropenem, day 6 of 7. Patient had AFib with RVR and I discontinued levalbuterol nebulizer. I will continue ipratropium nebulizer q.6 hours, Mucomyst nebulizer q.6 hours and add dornase nebulizer q.12 hours. I will continue guaifenesin 1200 mg p.o. b.i.d., vest therapy t.i.d. and Cornet flutter valve. will perform chest x-ray on 03/18/2025. If this demonstrates re-expansion of the left lung will continue medications as is. If this demonstrates continued collapse of the left lung will order CT scan of the chest without contrast. If this shows continued collapse of the left lung will plan on bronchoscopy on 03/19/2025 if there is availability with operating room staff and Anesthesia. I am waiting to hear back from them. Will discontinue rivaroxaban after tonight's dose and make patient NPO after midnight on 03/18/2025 in anticipation of bronchoscopy on 03/19/2025. will obtain chest x-ray the morning of 03/19/2025. Pulmonary inpatient consult services will resume on 03/19/2025. Call with questions. Discussed with Dr. Tam, will follow with you. 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 03/15/25: Regarding his right upper lobe lung nodule on 09/26/2022 this was 9 x 6 mm. Patient declined workup. Repeat scan on 04/03/2023 demonstrated increased growth at 1.2 cm. Patient declined workup. I reviewed patient's serial CT scans of the chest with Radiology and right upper lobe lung lesion concerning for cancer. Difficult to assess left hilar, mediastinal and lung as there are dense consolidative infiltrates. Plan: I recommended to the patient that we treat his right pneumonia and once he is improved clinically perform a biopsy of the right upper lobe lung mass. At this time the patient told me he declined this and does not want to know if he has cancer and just wishes to ride the storm out. I informed him that there were treatments for cancer and he told me he does not want radiation or chemotherapy in the future. I told him surgery may be an option but given his comorbidities and debilitated state I suspect he would be too frail to undergo thoracotomy. Again he told me he wanted to wait and not perform any biopsies at this time. Will readdress after he has had time to talk to his daughter and who were in the room. 03/16/25: The patient tells me he is not interested in any further workup of his right upper lobe increasing lung mass. I informed the him that there are good treatments if this is cancer and he says he does not want treatment and does not want any further workup. He has spoken to his family regarding this decision. Plan: No further workup per patient's wishes. Subjective Date/time seen: 03/17/25 08:56 Interval history: 03/15/2025: This is a new pulmonary consult for right upper lobe lung mass and left lung collapse. 79-year-old man with Low-grade papillary urothelial carcinoma on 01/12/2020, prostate cancer status post 45 radiation treatments 2020, peripheral vascular disease status post left AKA, CVA, hypertension, congestive heart failure, right upper lobe lung nodule. Regarding his right upper lobe lung nodule on 09/26/2022 this was 9 x 6 mm. Patient declined workup. Repeat scan on 04/03/2023 demonstrated increased growth at 1.2 cm. Patient declined workup. 03/11/2025: Patient presented to the emergency room with weakness, and 1 week of productive cough. Blood pressure 104/62, heart rate 137, respirations 27, room air saturations 89%. 3 L nasal cannula 97%. Lungs were clear. White blood cell count 14.2, creatinine 1.01, COPD 5.1, urine with greater than 100 white blood cells, 4+ bacteria. Influenza, RSV and COVID RT PCR assay negative. Chest x-ray showed left perihilar consolidation. Admitted and treated for UTI and pneumonia. Patient was started on doxycycline and Rocephin. He was given 2 L IV fluid. Patient previously had a pneumonia with Klebsiella in 2023 that was resistant to ceftriaxone and switch to meropenem. Doxycycline was continued. MRSA swab negative. CT scan on 03/12/2025 demonstrated enlarging spiculated pleural based right upper lobe nodule now measuring 4.7 x 3.2 cm. Left perihilar consolidation with air bronchograms in the left upper and lower lobes. I reviewed the scan with the radiologist and was difficult to tell if there was any hilar or mediastinal lymphadenopathy on the left, is unclear if the left airway was compromised or if there was a left mass. There is a small left pleural effusion. 03/15/2025: Patient tells me he has improved since admission. He tells me he is breathing 50% back to his normal. His cough and phlegm production or better and the concurs. He has shortness of breath at rest. Room air saturation 97%. He is afebrile. White blood cell count 11.1. Creatinine 0.74. CRP has increased from 5.1 on 03/11/2025 to 15.9 today. Procalcitonin is 0.2 today. Yesterday patient was -160 mL. Cumulative he is positive 2.1 L since admission. His weight today is 51 kg. Chest x-ray today shows 90% whiteout of the left lung with shift to the mediastinum to the left. 03/16/2025: Patient tells me he is minimally improved. States he is breathing 50% back to his normal. He still has rest shortness of breath. His cough and clear phlegm are unchanged. When I enter the room he was on room air with saturations 96%. He was in AFib RVR rate 130. He is afebrile. White blood cell count 9.0, creatinine 0.75. BNP today is 2520. Yesterday he was positive 20 mL. Cumulative he is positive 2.3 L since admission. His weight today is 52.2 kg. he is receiving the vest treatment but noticed no changes in his phlegm production. Chest x-ray today with continued near complete collapse of the left lung, Right upper lobe and right lower lobe infiltrates. Dornase was added. 03/17/2025: Patient tells me he is improved. States he is breathing 75% back to his normal. He tells me he is not short of breath at rest and had no dyspnea on exertion when pivoting to the chair. His cough Is minimally improved and he still has clear phlegm. When I enter the room he was on room air with saturations 98%. He was in sinus with PVC and PAC. He is afebrile. White blood cell count 9.1, creatinine 0.75. Yesterday he was positive 730 mL. Cumulative he is positive 3.0 L. His weight today is 54.5. He is receiving the vest treatment but noticed no changes in his phlegm production. He notices no change with a nebulizers. Chest x-ray today with continued near complete collapse of the left lung, Right upper lobe and right lower lobe infiltrates. DATA: 03/12/25: Echo Summary 1. Complete two-dimensional, color flow and Doppler transthoracic echocardiogram is performed. 2. Left ventricular systolic function is mildly reduced, estimated at 35-40. 3. There is mildly increased left ventricular wall thickness. 4. Left ventricular chamber dimension is mildly enlarged. 5. The left ventricular diastolic function is abnormal. 6. Left atrial chamber dimension is mildly enlarged. 7. There is mild pulmonic regurgitation. Right Ventricle Right ventricular chamber dimension is normal. Right ventricular systolic function is normal. Left Atria Left atrial chamber dimension is mildly enlarged. Right Atria Right atrial chamber dimension is normal. 03/12/2025: CT diagnostic chest wo con HISTORY:perihilar PNA, smoker COMPARISON: 04/02/2023. TECHNIQUE: Axial images of the chest were obtained without infusion of intravenous contrast. Dose optimization technique was utilized. FINDINGS: The examination demonstrates increase in patchy nodular opacity within the right upper lobe which now measures up to 4.7 x 3.2 cm. There is left perihilar consolidation extending into the upper and lower lobes where there are air bronchograms noted. There is a small left pleural effusion. Cardiac size and mediastinal configuration are normal in appearance. No hilar or mediastinal lymphadenopathy is seen. The thoracic aorta is normal in caliber. Osseous structures are intact. Hepatic cysts are stable. IMPRESSION: Increase in spiculated pleural-based nodule within the right upper lobe measuring up to 4.7 x 3.2 cm noted. There are several smaller adjacent spiculated nodules. This is concerning for malignancy. There is left perihilar airspace opacity extending into the upper and lower lobes with air bronchograms noted. There is small left pleural effusion. Consider follow-up bronchoscopy. 04/02/2023; CT Scan of the Chest without Contrast: Clinical Indication: Lung nodule COMPARISON: 09/26/2022 Findings: There is no evidence of any significant mediastinal, hilar or axillary lymphadenopathy. There are atherosclerotic ossifications of the aorta and [place] coronary arteries. Status post probable CABG. There is no evidence of pleural or pericardial effusion. Right upper lobe pulmonary nodule is mild increase in size, now measuring up to 1.2 cm in diameter. Stable probable emphysematous change in right apical scarring. Images through the upper abdomen reveal small hepatic cysts. Impression: Right upper lobe pulmonary nodule is increased in size, now measuring 1.2 cm. Interval growth is suspicious for small neoplastic lesion. Consider attempted tissue sampling and/or PET/CT at this time. Stable emphysematous change and right apical scarring. 09/26/2022: EXAMINATION: CT diagnostic chest wo con INDICATION: R91.1 - Solitary pulmonary nodule COMPARISON: None FINDINGS: Mild emphysema with mild left and moderate right apical pleural-parenchymal scarring. 9 x 6 mm right upper lobe nodule. Small calcified right lower lobe nodule consistent with old granulomatous disease. Groundglass opacities and irregular septal line thickening at the dependent periphery of the right lower lobe most likely atelectasis with differential including less likely mild pulmonary edema or chronic interstitial fibrosis with nonspecific interstitial pneumonia (NSIP) pattern. No pleural effusion. Heart size normal. Atherosclerotic coronary artery calcification. Median sternotomy wires and mediastinal surgical clips are consistent with coronary artery bypass grafting. No pericardial effusion. Enlargement of the central pulmonary arteries consistent with pulmonary arterial hypertension. 2 cm low-attenuation cyst in the left hepatic lobe. A millimeter exophytic lesion at the right kidney which is more dense in the surrounding renal parenchyma, indeterminate but most likely a complex proteinaceous/hemorrhagic cyst. Suggestion of hydronephrosis at the upper pole the left kidney with effacement of the previously seen renal sinus fat. Mild thoracic spondylosis. IMPRESSION: 1. Mild emphysema with biapical pleural-parenchymal scarring, right greater than left. 2. Indeterminate 9 x 6 mm right upper lobe nodule. Correlate with any prior outside imaging and if long-term stability cannot be confirmed, would recommend follow-up chest CT in months. 3. Effacement of the renal sinus fat at the visualized upper pole the left kidney which is new since 06/20/2022 with suggestion of surface hydronephrosis. Recommend correlation with urinalysis and consider further evaluation with pre and postcontrast CT . Review of Systems Constitutional: Constitutional: Reports no additional constitutional complaints Eyes: Eyes: Reports no additional eye complaints ENT: Reports system reviewed and no additional complaints, except as documented Cardiovascular: Cardiovascular: Reports no additional cardiovascular complaints Respiratory: Respiratory: Reports no additional respiratory complaints Gastrointestinal: Gastrointestinal: Reports no additional gastrointestinal complaints Musculoskeletal: Musculoskeletal: Reports no additional musculoskeletal complaints Neurologic: Reports system reviewed and no additional complaints, except as documented Psychiatric: Psychiatric: Reports no additional psychiatric complaints Endocrine: Endocrine: Reports no additional endocrine complaints Hematologic/Lymphatic: Hematologic/Lymphatic: Reports no additional hematologic/lymphatic complaints Allergic/Immunologic: Allergic/Immunologic: Reports no additional allergic/immunologic complaints Exam Const: General: cooperative, comfortable and no acute distress Orientation/consciousness: oriented to person, oriented to place and oriented to time Other: weak, debilitated, cachectic HENMT: Head: normal to inspection Ears: hearing grossly normal bilaterally Eyes: General: appearance normal, both eyes and all related structures Neck: Neck: normal visual inspection Chest: Chest palpation & inspection: normal inspection of the chest Resp: Effort & Inspection: normal respiratory effort and able to speak in complete sentences Auscultation: no crackles, no rales, no rhonchi, no wheezes and diminished lung sounds Other: Minimal breath sounds left hemithorax. Cardio: Jugular venous distension: no JVD GI: Inspection: normal to inspection Skin: General skin exam: normal color Neuro: General: oriented to person, oriented to place and oriented to time Extrem: General: normal to inspection and no edema Psych: Appearance: grossly normal Objective Data Vital Signs Vital Signs: Vital Signs - 24 hr 03/16/25 09:04 03/16/25 09:30 03/16/25 10:27 Temperature Pulse Rate 83 78 80 Respiratory Rate Blood Pressure 104/54 L Pulse Oximetry Oxygen Delivery 03/16/25 11:11 03/16/25 11:14 03/16/25 12:00 Temperature 36.7 C Pulse Rate 77 89 Respiratory Rate 18 Blood Pressure 98/53 L 94/42 L Pulse Oximetry 97 Oxygen Delivery 03/16/25 13:18 03/16/25 13:57 03/16/25 14:13 Temperature Pulse Rate 94 103 H Respiratory Rate 20 Blood Pressure Pulse Oximetry Oxygen Delivery Room Air 03/16/25 14:19 03/16/25 15:28 03/16/25 16:00 Temperature 36.5 C Pulse Rate 107 H 94 90 Respiratory Rate 18 18 Blood Pressure 120/37 L Pulse Oximetry 95 Oxygen Delivery 03/16/25 17:58 03/16/25 20:00 03/16/25 20:00 Temperature 37.2 C Pulse Rate 92 87 Respiratory Rate 18 Blood Pressure 104/77 Pulse Oximetry 95 97 Oxygen Delivery Room Air 03/16/25 20:00 03/16/25 20:57 03/16/25 20:57 Temperature Pulse Rate 84 83 Respiratory Rate 20 Blood Pressure Pulse Oximetry 96 Oxygen Delivery Room Air 03/16/25 21:03 03/16/25 21:10 03/16/25 22:00 Temperature Pulse Rate 89 84 68 Respiratory Rate 20 Blood Pressure Pulse Oximetry Oxygen Delivery 03/16/25 23:59 03/17/25 00:00 03/17/25 00:00 Temperature 37.1 C Pulse Rate 67 66 Respiratory Rate 20 Blood Pressure 103/45 L Pulse Oximetry 98 Oxygen Delivery Room Air 03/17/25 01:08 03/17/25 01:18 03/17/25 01:26 Temperature Pulse Rate 93 70 Respiratory Rate 18 18 Blood Pressure Pulse Oximetry Oxygen Delivery Room Air 03/17/25 02:00 03/17/25 04:00 03/17/25 04:00 Temperature Pulse Rate 68 80 Respiratory Rate Blood Pressure Pulse Oximetry Oxygen Delivery Room Air 03/17/25 04:00 03/17/25 06:00 03/17/25 08:00 Temperature 36.6 C 36.2 C L Pulse Rate 77 79 84 Respiratory Rate 16 22 H Blood Pressure 125/49 L 125/50 L Pulse Oximetry 96 97 Oxygen Delivery 03/17/25 08:24 03/17/25 08:26 03/17/25 08:26 Temperature Pulse Rate 82 78 Respiratory Rate 18 Blood Pressure Pulse Oximetry 95 Oxygen Delivery Room Air 03/17/25 08:46 Temperature Pulse Rate 88 Respiratory Rate 20 Blood Pressure Pulse Oximetry Oxygen Delivery Intake/Output Intake/Output: Intake & Output 03/14/25 03/15/25 03/16/25 03/17/25 23:59 23:59 23:59 23:59 Intake Total 3771 963 4976 280 Output Total 1270 875 650 450 Balance -160 20 730 -170 Meds/Results Medications: Active Medications Generic Name Dose Route Start Last Admin Trade Name Freq PRN Reason Stop Dose Admin Acetaminophen 650 mg 03/12/25 23:24 03/12/25 23:29 Acetaminophen 325 Mg Tablet PO 650 mg Q6H PRN Administration Mild Pain (1-3) or Fever Acetylcysteine 200 mg 03/15/25 14:00 03/17/25 08:26 Acetylcysteine 20% Inhal Soln 800 Mg/4 Ml Vial INHALATION 200 mg Q6HRT MANOLO Administration Cyanocobalamin 1,000 mcg 03/14/25 09:00 03/17/25 08:25 Cyanocobalamin 1,000 Mcg Tablet PO 1,000 mcg QAM MANOLO Administration Dornase Vinicius 2.5 mg 03/16/25 11:01 03/17/25 08:33 Dornase Vinicius Inh Soln 1 Mg/Ml 2.5 Ml Amp INHALATION 04/15/25 11:00 2.5 mg Q12HRT MANOLO Administration Doxycycline Hyclate 100 mg 03/12/25 21:00 03/17/25 08:25 Doxycycline Hyclate 100 Mg Tablet PO 03/17/25 09:01 100 mg Q12HR MANOLO Administration Guaifenesin 1,200 mg 03/15/25 11:30 03/17/25 08:25 Guaifenesin 12 Hr 600 Mg Tabcr PO 1,200 mg Q12HR MANOLO Administration Meropenem 1 gm/ Sodium 100 mls @ 200 mls/hr 03/12/25 00:00 03/17/25 00:27 Chloride IVPB 03/18/25 12:29 200 mls/hr Q12H MANOLO Administration Ipratropium [place] 0.5 mg 03/12/25 02:00 03/17/25 08:26 Ipratropium Br 0.02% Inh Soln 0.5 Mg/2.5 Ml Vial INHALATION 0.5 mg Q6HRT MANOLO Administration Metoprolol Tartrate 25 mg 03/16/25 21:00 03/17/25 08:24 Metoprolol Tartrate 25 Mg Tablet PO 25 mg Q12HR MANOLO Administration Rivaroxaban 2.5 mg 03/11/25 23:20 03/13/25 08:25 Rivaroxaban 2.5 Mg Tablet PO 2.5 mg On Hold: 03/13/25 18:52 Q12HR MANOLO Administration Rosuvastatin Calcium 40 mg 03/12/25 09:00 03/17/25 08:25 Rosuvastatin 20 Mg Tablet PO 40 mg DAILY MANOLO Administration Sacubitril/Valsartan 1 tab 03/13/25 21:00 03/17/25 08:25 Sacubitril/Valsartan 12-13 Mg Tablet PO 1 tab Q12HR MANOLO Administration Tamsulosin HCl 0.4 mg 03/15/25 21:00 03/17/25 08:25 Tamsulosin Hcl 0.4 Mg Capsule PO 0.4 mg Q12HR MANOLO Administration Radiology Results: ITS Impressions Cervical Spine CT 03/11/25 14:33 IMPRESSION: HEAD: 1. No acute intracranial findings. C-SPINE: 1. No acute fracture. 2. Incompletely seen dense probable pneumonia right side. Chest x-ray today demonstrates worse pneumonia left lung. Recommend short interval follow-up chest x-rays and/or CT chest to exclude underlying lesion. Head CT 03/11/25 14:33 IMPRESSION: HEAD: 1. No acute intracranial findings. C-SPINE: 1. No acute fracture. 2. Incompletely seen dense probable pneumonia right side. Chest x-ray today demonstrates worse pneumonia left lung. Recommend short interval follow-up chest x-rays and/or CT chest to exclude underlying lesion. Chest CT 03/12/25 18:04 IMPRESSION: Increase in spiculated pleural-based nodule within the right upper lobe measuring up to 4.7 x 3.2 cm noted. There are several smaller adjacent spiculated nodules. This is concerning for malignancy. There is left perihilar airspace opacity extending into the upper and lower lobes with air bronchograms noted. There is small left pleural effusion. Consider follow-up bronchoscopy. Chest X-Ray 03/17/25 08:41 IMPRESSION: 1. Persistent near complete collapse of the left lung with abrupt cut off of the left mainstem bronchus which could be due to mucous plug or potentially malignancy. Consider bronchoscopy for further evaluation. Cannot exclude pneumonia or malignancy within the collapsed lung or an associated left pleural effusion. 2. Unchanged pleural-based spiculated mass at the lateral right upper lung which remains concerning for malignancy. Labs Labs: Laboratory Results - last 24 hr 03/16/25 03/17/25 03:50 03:51 WBC 9.1 RBC 3.86 L Hgb 10.8 L Hct 34.6 L MCV 89.6 MCH 28.0 MCHC 31.2 L RDW 16.3 H Plt Count 270 MPV 9.6 Sodium 139 Potassium 3.7 Chloride 113 H Carbon Dioxide 24 Anion Gap 2 L BUN 22 H Creatinine 0.75 Estim Creat Clear Calc 52 Estimated GFR > 60 Glucose 106 Calcium 8.5 [id number] 260 H
--- NOTE | 2025-03-17 10:02 | PCNFU ---
Nutrition Follow-Up Complete: Moderate protein calorie malnutrition related to chronic loss of appetite as evidenced by intakes <75% needs >1 month; severe muscle wasting (temporalis, clavicles, shoulders) and severe fat loss (cheeks) Goal:Intake >50% Pt not meeting goal. Pt current nutrition is Heart healthy, Nutrition ice cream cups BID. Nutrition recommendation: continue with current plan of care Last recorded weight is 54.5 kg. Bowel Motility: No BM recorded at this time Labs Reviewed: Hgb:10.8, HCT:34.6, BUN:22 Meds Noted: B12 Skin: WNL Additional Notes: Pt continues on a heart healthy diet, intake remains poor to fair. Pt does eat the nutrition ice cream cups. Charted intake 10-50%. Encourage po intake. Monitoring intakes, weights, lans, supplement tolerance, plan of care Follow up in 7 days
--- NOTE | 2025-03-17 14:35 | PM.IMPN2 ---
Assessment and Plan Assessment and Plan (1) Pneumonia: Code(s): J18.9 - Pneumonia, unspecified organism Status: Acute Assessment and Plan: Patient presents with SOB and cough and found to have sepsis with tachycardia, tachypnea, hypoxia, leukocytosis and lactic acidosis. CXR showing left perihilar consolidative process possibly representing pneumonia. Started on Rocephin and doxycycline for community acquired pneumonia but changed to meropenem for the possibility of drug resistant UTI. MRSA nasal swab negative. Blood culture no growth to date. Concern for malignancy given the weight loss and known right upper lobe lung mass for many years but has declined evaluation. CT of the chest shows increased right upper lobe mass now measuring 4.7 cm (0.9cm in 2022) with several smaller adjacent spiculated nodules concerning for malignancy. There is also left perihilar airspace opacity extending into the upper and lower lobes with air bronchograms. Spoke with patient and family in the room about findings and direction on how to proceed and patient wished to proceed with pulmonary consult and possible bronchoscopy. WBC normal now. On room air. Pulmonary consulted and appreciate their input. CXR showing complete white out of left lung for the past 2 days Spoke with patient about comfort measures but he wants the PNA and cough treated and does not want the RUL lung mass evaluated. BNP 2520. With low EF, consider pulm edema contributing to these findings but felt less likely and BP soft and he remains on room air so hold on Lasix. I discussed with Dr Eddy from Pulmonology, recommended CXR tomorrow, continue Meropenem and Doxycycline. For possible bronchoscopy Saturday if lung collapse persists Continue CPT with vest therapy. Continue mucinex, nebulizer treatments and mucomyst. Continue IV antibiotics. (2) Sepsis: Qualifiers: Acute respiratory failure type: with hypoxia Sepsis acute organ dysfunction status: with acute organ dysfunction Sepsis type: sepsis due to unspecified organism Severe sepsis acute organ dysfunction type: acute respiratory failure Severe sepsis shock status: without septic shock Qualified Code(s): A41.9 - Sepsis, unspecified organism; R65.20 - Severe sepsis without septic shock; J96.01 - Acute respiratory failure with hypoxia Code(s): A41.9 - Sepsis, unspecified organism Status: Acute Assessment and Plan: As above (3) Pulmonary mass: Code(s): R91.8 - Other nonspecific abnormal finding of lung field Status: Acute Assessment and Plan: CT chest in September 2022 showing RUL mass measuring 0.9cm. CT of the chest here shows increased RUL mass now measuring 4.7 cm with several smaller adjacent spiculated nodules concerning for malignancy. May also have left perihilar involvement as well resulting in collapse. Patient continues to decline evaluation of mass Treat PNA and provide symptomatic care (4) Urinary tract infection: Code(s): N39.0 - Urinary tract infection, site not specified Status: Acute Assessment and Plan: Urine and blood cultures were collected. Rocephin started for pneumonia but emiliana has hx of UTI with ESBL Klebsiella pneumoniae so abx was switched to meropenem (03/12). BCx NGTD UCx growing Klebsiella 50-100K colonies sensitive to meropenem and ertapenem but not rocephin, zosyn or levofloxicin Continue meropenem for 7 days (5) Atrial fibrillation with RVR: Code(s): I48.91 - Unspecified atrial fibrillation Status: Acute Assessment and Plan: The patient initially was AFib RVR in the emergency room but has auto converted. Echo showing EF 35-40%, diastolic dysfunction. Xarelto resumed but now on hold now for possible bronchoscopy. Metoprolol was started. He is in and out of AFib/RVR. Metoprolol IV given yesterday with benefit but AMio given today due to low BP before converting. Will advance metoprolol. Monitor on tele (6) CHF (congestive heart failure): Code(s): I50.9 - Heart failure, unspecified Status: Acute Assessment and Plan: Echo from outside facility in 2020 was read as EF of 63% and impaired diastolic relaxation grade 1. Echo here showing EF 35-40%. Continue metoprolol tartrate but convert to Toprol XL at discharge. Entresto added. Consider spironolactone. No empagliflozin given current urinary infection (7) CVA (cerebral vascular accident): Code(s): I63.9 - Cerebral infarction, unspecified Status: Acute Assessment and Plan: No residual issues. On Xarelto at home. Continue with Crestor. Holding Xarelto currently. PT/OT ordered (8) HLD (hyperlipidemia): Code(s): E78.5 - Hyperlipidemia, unspecified Status: Acute Assessment and Plan: Continue with Crestor (9) Benign prostatic hyperplasia without lower urinary tract symptoms: Code(s): N40.0 - Benign prostatic hyperplasia without lower urinary tract symptoms Status: Acute Assessment and Plan: Continue Flomax (10) Moderate protein-calorie malnutrition: Code(s): E44.0 - Moderate protein-calorie malnutrition Status: Acute Assessment and Plan: Moderate protein calorie malnutrition related to chronic loss of appetite as evidenced by intakes <75% needs >1 month; severe muscle wasting (temporalis, clavicles, shoulders) and severe fat loss (cheeks) Supplements ordered. Plan B12 Deficiency - on daily replacement DVT Prophylaxis - Xarelto hold, one dose of Lovenox tonight. OFr Bronchoscopy on Saturday Code status -DNR Disp - PT/OT Subjective Date/time seen: 03/17/25 14:35 Interval history: Comfortable at bedside For possible bronchoscopy on Saturday, if lung collapse is persistent Review of Systems Constitutional: Constitutional: Reports as per HPI and Reports no additional constitutional complaints Eyes: Eyes: Reports as per HPI and Reports no additional eye complaints ENT: Reports system reviewed and no additional complaints, except as documented and Reports Normal hearing present Cardiovascular: Cardiovascular: Reports no additional cardiovascular complaints Respiratory: Respiratory: Reports as per HPI and Reports no additional respiratory complaints Gastrointestinal: Gastrointestinal: Reports as per HPI and Reports no additional gastrointestinal complaints Musculoskeletal: Musculoskeletal: Reports no additional musculoskeletal complaints Integumentary/Breasts: Skin/Breast: Reports system reviewed and no additional complaints, except as docu Neurologic: Reports system reviewed and no additional complaints, except as documented and Reports Normal hearing present Psychiatric: Psychiatric: Reports no additional psychiatric complaints and Reports as per HPI Hematologic/Lymphatic: Hematologic/Lymphatic: Reports no additional hematologic/lymphatic complaints Allergic/Immunologic: Allergic/Immunologic: Reports no additional allergic/immunologic complaints Exam Narrative: AF 97.7 120/37 94 18 95% ra Gen - NARD lying right side down. Chest - bronchial BS in the left lung field with improved air exchange, nml RR CV - RRR with extra beats. Tele showing sinus rhythm with PVCs Abd -soft. Scaphoid. Positive bowel sounds. Ext -no right pedal edema. Left [id number] amputation. Psych - Nml mood and affect Skin - Warm and dry Const: General: cooperative, healthy appearing, comfortable, no acute distress, well developed, awake, Physically active, average body habitus and well nourished Nutritional Appearance: average body habitus and well nourished Orientation/consciousness: oriented to person, oriented to place, oriented to time and patient oriented x3 HENMT: Head: normal to inspection, No palpable skull fracture present, normocephalic, atraumatic and abrasion Ears: external ears normal Eyes: General: appearance normal, both eyes and all related structures Alignment and Position: alignment normal Periorbital: periorbital findings normal Eyelids: eyelids normal Neck: Neck: normal visual inspection, full ROM and no lymphadenopathy Chest: Chest palpation & inspection: normal inspection of the chest Resp: Effort & Inspection: normal respiratory effort Auscultation: wheezes Cardio: Palpation: normal PMI Rate: regular rate Rhythm: regular rhythm Heart sounds: S1 normal heart sound present and S2 normal heart sound present Peripheral pulses: Peripheral pulses 2+ throughout GI: Inspection: normal to inspection : General: Yes no CVA tenderness Back/Spine/Pelvis: Back: no CVA tenderness Skin: General skin exam: normal color Lesions: no lesions Rashes: no rashes Trauma: no lacerations or abrasions Wounds: no wounds Hair: normal Nails: normal Neuro: General: oriented to person, oriented to place, oriented to time and patient oriented x3 Cranial nerves: Yes Normal hearing present Cognition (Neuro): normal cognition Speech: normal speech Motor exam (neuro): 5/5 motor strength present throughout Sensory Exam: normal sensation Extrem: General: normal to inspection Right upper extremity: normal to inspection and shoulder/upper arm Left upper extremity: normal to inspection and shoulder/upper arm Right lower extremity: normal to inspection Left lower extremity: normal to inspection Other: Left qnzdx-lur-[id number] amputation Psych: Appearance: grossly normal Mental Status: mental status grossly normal Speech and movement: Normal speech and movement present Affect: normal affect Attitude: cooperative Thought process: Normal thought process present Insight: Good insight present (Psych) Judgement: Good judgement present (Psych) Other: Fair judgment insight Objective Data Vital Signs Vital Signs: Vital Signs - 24 hr 03/16/25 15:28 03/16/25 16:00 03/16/25 17:58 Temperature 97.7 F Pulse Rate 94 90 92 Respiratory Rate 18 Blood Pressure 120/37 L Pulse Oximetry 95 Pulse Oximetry [At Rest After Therapy Session] Oxygen Delivery 03/16/25 20:00 03/16/25 20:00 03/16/25 20:00 Temperature 98.9 F Pulse Rate 87 84 Respiratory Rate 18 Blood Pressure 104/77 Pulse Oximetry 95 97 Pulse Oximetry [At Rest After Therapy Session] Oxygen Delivery Room Air 03/16/25 20:57 03/16/25 20:57 03/16/25 21:03 Temperature Pulse Rate 83 89 Respiratory Rate 20 20 Blood Pressure Pulse Oximetry 96 Pulse Oximetry [At Rest After Therapy Session] Oxygen Delivery Room Air 03/16/25 21:10 03/16/25 22:00 03/16/25 23:59 Temperature 98.8 F Pulse Rate 84 68 67 Respiratory Rate 20 Blood Pressure 103/45 L Pulse Oximetry 98 Pulse Oximetry [At Rest After Therapy Session] Oxygen Delivery 03/17/25 00:00 03/17/25 00:00 03/17/25 01:08 Temperature Pulse Rate 66 Respiratory Rate Blood Pressure Pulse Oximetry Pulse Oximetry [At Rest After Therapy Session] Oxygen Delivery Room Air Room Air 03/17/25 01:18 03/17/25 01:26 03/17/25 02:00 Temperature Pulse Rate 93 70 68 Respiratory Rate 18 18 Blood Pressure Pulse Oximetry Pulse Oximetry [At Rest After Therapy Session] Oxygen Delivery 03/17/25 04:00 03/17/25 04:00 03/17/25 04:00 Temperature 97.8 F Pulse Rate 80 77 Respiratory Rate 16 Blood Pressure 125/49 L Pulse Oximetry 96 Pulse Oximetry [At Rest After Therapy Session] Oxygen Delivery Room Air 03/17/25 06:00 03/17/25 08:00 03/17/25 08:24 Temperature 97.2 F L Pulse Rate 79 84 82 Respiratory Rate 22 H Blood Pressure 125/50 L Pulse Oximetry 97 Pulse Oximetry [At Rest After Therapy Session] Oxygen Delivery 03/17/25 08:26 03/17/25 08:26 03/17/25 08:46 Temperature Pulse Rate 78 88 Respiratory Rate 18 20 Blood Pressure Pulse Oximetry 95 Pulse Oximetry [At Rest After Therapy Session] Oxygen Delivery Room Air 03/17/25 09:33 03/17/25 11:52 03/17/25 13:32 Temperature 97.7 F Pulse Rate 71 73 Respiratory Rate 20 20 Blood Pressure 109/46 L Pulse Oximetry 96 94 Pulse Oximetry [At Rest After Therapy Session] 90 Oxygen Delivery Room Air Room Air 03/17/25 13:32 03/17/25 13:42 Temperature Pulse Rate 73 84 Respiratory Rate 20 20 Blood Pressure Pulse Oximetry Pulse Oximetry [At Rest After Therapy Session] Oxygen Delivery Intake/Output Intake/Output: Intake & Output 03/14/25 03/15/25 03/16/25 03/17/25 23:59 23:59 23:59 23:59 Intake Total 7287 403 1416 860 Output Total 1270 875 650 450 Balance -160 20 730 410 Meds/Results Medications: Active Medications Generic Name Dose Route Start Last Admin Trade Name Freq PRN Reason Stop Dose Admin Acetaminophen 650 mg 03/12/25 23:24 03/12/25 23:29 Acetaminophen 325 Mg Tablet PO 650 mg Q6H PRN Administration Mild Pain (1-3) or Fever Acetylcysteine 200 mg 03/15/25 14:00 03/17/25 13:30 Acetylcysteine 20% Inhal Soln 800 Mg/4 Ml Vial INHALATION 200 mg Q6HRT MANOLO Administration Cyanocobalamin 1,000 mcg 03/14/25 09:00 03/17/25 08:25 Cyanocobalamin 1,000 Mcg Tablet PO 1,000 mcg QAM MANOLO Administration Dornase Vinicius 2.5 mg 03/16/25 11:01 03/17/25 08:33 Dornase Vinicius Inh Soln 1 Mg/Ml 2.5 Ml Amp INHALATION 04/15/25 11:00 2.5 mg Q12HRT MANOLO Administration Enoxaparin Sodium 55 mg 03/17/25 21:00 Enoxaparin 60 Mg/0.6 Ml Syringe SUB-Q 03/17/25 21:01 ONCE ONE Guaifenesin 1,200 mg 03/15/25 11:30 03/17/25 08:25 Guaifenesin 12 Hr 600 Mg Tabcr PO 1,200 mg Q12HR MANOLO Administration Meropenem 1 gm/ Sodium 100 mls @ 200 mls/hr 03/12/25 00:00 03/17/25 13:11 Chloride IVPB 03/18/25 12:29 200 mls/hr Q12H MANOLO Administration Ipratropium [place] 0.5 mg 03/12/25 02:00 03/17/25 13:30 Ipratropium Br 0.02% Inh Soln 0.5 Mg/2.5 Ml Vial INHALATION 0.5 mg Q6HRT MANOLO Administration Metoprolol Tartrate 25 mg 03/16/25 21:00 03/17/25 08:24 Metoprolol Tartrate 25 Mg Tablet PO 25 mg Q12HR MANOLO Administration Rivaroxaban 2.5 mg 03/11/25 23:20 03/13/25 08:25 Rivaroxaban 2.5 Mg Tablet PO 2.5 mg On Hold: 03/13/25 18:52 Q12HR MANOLO Administration Rosuvastatin Calcium 40 mg 03/12/25 09:00 03/17/25 08:25 Rosuvastatin 20 Mg Tablet PO 40 mg DAILY MANOLO Administration Sacubitril/Valsartan 1 tab 03/13/25 21:00 03/17/25 08:25 Sacubitril/Valsartan 12-13 Mg Tablet PO 1 tab Q12HR MANOLO Administration Tamsulosin HCl 0.4 mg 03/15/25 21:00 03/17/25 08:25 Tamsulosin Hcl 0.4 Mg Capsule PO 0.4 mg Q12HR MANOLO Administration Radiology Results: ITS Impressions Cervical Spine CT 03/11/25 14:33 IMPRESSION: HEAD: 1. No acute intracranial findings. C-SPINE: 1. No acute fracture. 2. Incompletely seen dense probable pneumonia right side. Chest x-ray today demonstrates worse pneumonia left lung. Recommend short interval follow-up chest x-rays and/or CT chest to exclude underlying lesion. Head CT 03/11/25 14:33 IMPRESSION: HEAD: 1. No acute intracranial findings. C-SPINE: 1. No acute fracture. 2. Incompletely seen dense probable pneumonia right side. Chest x-ray today demonstrates worse pneumonia left lung. Recommend short interval follow-up chest x-rays and/or CT chest to exclude underlying lesion. Chest CT 03/12/25 18:04 IMPRESSION: Increase in spiculated pleural-based nodule within the right upper lobe measuring up to 4.7 x 3.2 cm noted. There are several smaller adjacent spiculated nodules. This is concerning for malignancy. There is left perihilar airspace opacity extending into the upper and lower lobes with air bronchograms noted. There is small left pleural effusion. Consider follow-up bronchoscopy. All CT scans at this facility are performed using low dose modulation techniques as appropriate to perform exam including the following: automated exposure control; use of iterative reconstruction technique; adjustment of the mA and/or kV according to patient size (this includes techniques or standardized protocols for targeted exams where dose is matched to indication/reason for exam). Chest X-Ray 03/17/25 08:41 IMPRESSION: 1. Persistent near complete collapse of the left lung with abrupt cut off of the left mainstem bronchus which could be due to mucous plug or potentially malignancy. Consider bronchoscopy for further evaluation. Cannot exclude pneumonia or malignancy within the collapsed lung or an associated left pleural effusion. 2. Unchanged pleural-based spiculated mass at the lateral right upper lung which remains concerning for malignancy. Labs Labs: Laboratory Results - last 24 hr 03/16/25 03/17/25 03:50 03:51 WBC 9.1 RBC 3.86 L Hgb 10.8 L Hct 34.6 L MCV 89.6 MCH 28.0 MCHC 31.2 L RDW 16.3 H Plt Count 270 MPV 9.6 Sodium 139 Potassium 3.7 Chloride 113 H Carbon Dioxide 24 Anion Gap 2 L BUN 22 H Creatinine 0.75 Estim Creat Clear Calc 52 Estimated GFR > 60 Glucose 106 Calcium 8.5 Tisqz-0-Yogzvkyhysc 260 H M.pneumoniae IgM Titer <770 Quality VTE Prophylaxis VTE prophylaxis: pharmacologic ordered
[2025-03-17] MEDS: CYANOCOBALAMIN INJ 1,000 MCG/ML VIAL 1000 MCG IM (17:26)
[2025-03-17] MEDS: DOXYCYCLINE IV 100 MG in SODIUM CHLORIDE 0.9% IV 100 ML IVPB (20:57)
[2025-03-18] VITALS (26 sets, daily range): BP systolic 101–140; BP diastolic 43–72; PULSE 61–88; RESP 18–28; TEMP 36.6–36.9; O2SAT 93–100
[2025-03-18] MEDS: ENOXAPARIN 60 MG/0.6 ML SYRINGE 55 MG SUB-Q (01:09)
[2025-03-18] MEDS: MEROPENEM 1 GM in SODIUM CHLORIDE 0.9% IV 100 ML 200 ML IVPB ×2 (01:10→12:14)
[2025-03-18] MEDS: IPRATROPIUM BR 0.02% INH SOLN 0.5 MG/2.5 ML VIAL INHALATION ×4 (02:26→20:22)
[2025-03-18] MEDS: ACETYLCYSTEINE 20% INHAL SOLN 800 MG/4 ML VIAL 200 MG INHALATION ×4 (02:26→20:22)
[2025-03-18 04:08] LABS: Hematocrit 34.9 % (42.0-52.0); Hemoglobin 10.7 g/dL (14.0-18.0); Immature Granulocyte Percent A 0.5 % (0-0.5); Lymphocytes Absolute Auto 0.71 K/mm3 (0.9-3.2); Mean Corpuscular HGB Conc 30.7 g/dl (32-36); Mean Corpuscular Hemoglobin 27.9 pg (26-34); Mean Corpuscular Volume 91.1 fl (80-100); Nucleated Red Blood Cells Absolute Auto 0.000 K/mm3 (0.0-0.012); Nucleated Red Blood Cells Perc 0.0 % (0.0-0.2); Platelet Count Result 269 k/mm3 (150-375); Red Blood Count 3.83 M/mm3 (4.6-6.20); White Blood Count 9.6 K/mm3 (4.5-10.0)
[2025-03-18 04:59] LABS: Alanine Aminotransferase 203 U/L (6-50); Albumin Level 2.4 g/dL (3.5-5.1); Alkaline Phosphatase 82 U/L (38-126); Anion Gap 5 mmol/L (4-12); Aspartate Amino Transferase 185 U/L (17-59); Bilirubin,Total 0.4 mg/dL (0.2-1.3); Blood Urea Nitrogen 21 mg/dL (9-20); Calcium 8.3 mg/dL (8.4-10.2); Carbon Dioxide 23 mmol/L (22-30); Chloride 112 mmol/L (98-107); Estimated CRCL calculation 50 ml/min; Estimated Glomerular Filt Rate > 60; Glucose 105 mg/dL (65-110); Magnesium 2.1 mg/dL (1.6-2.3); Potassium 3.6 mmol/L (3.4-5.0); Sodium 140 mmol/L (137-145); Total Protein 5.7 g/dL (6.3-8.2)
[2025-03-18] MEDS: DORNASE ALFA INH SOLN 1 MG/ML 2.5 ML AMP 2.5 MG INHALATION ×2 (08:17→20:16)
[2025-03-18] MEDS: SACUBITRIL/VALSARTAN 12-13 MG TABLET 1 TAB PO ×2 (09:04→20:36)
[2025-03-18] MEDS: CYANOCOBALAMIN 1,000 MCG TABLET 1000 MCG PO (09:04)
[2025-03-18] MEDS: METOPROLOL TARTRATE 25 MG TABLET PO ×2 (09:04→20:35)
[2025-03-18] MEDS: TAMSULOSIN HCL 0.4 MG CAPSULE PO ×2 (09:04→20:36)
[2025-03-18] MEDS: guaiFENesin 12 HR 600 MG TABCR 1200 MG PO ×2 (09:04→20:36)
[2025-03-18] MEDS: DOXYCYCLINE IV 100 MG in SODIUM CHLORIDE 0.9% IV 100 ML IVPB ×2 (09:05→20:34)
[2025-03-18] MEDS: ROSUVASTATIN 20 MG TABLET 40 MG PO (09:05)
--- NOTE | 2025-03-18 14:20 | P.PNIM_ITS ---
Assessment and Plan Assessment and Plan (1) Pneumonia: Code(s): J18.9 - Pneumonia, unspecified organism Status: Acute Assessment and Plan: Patient presents with SOB and cough and found to have sepsis with tachycardia, tachypnea, hypoxia, leukocytosis and lactic acidosis. CXR showing left perihilar consolidative process possibly representing pneumonia. Started on Rocephin and doxycycline for community acquired pneumonia but changed to meropenem for the possibility of drug resistant UTI. MRSA nasal swab negative. Blood culture no growth to date. Concern for malignancy given the weight loss and known right upper lobe lung mass for many years but has declined evaluation. CT of the chest shows increased right upper lobe mass now measuring 4.7 cm (0.9cm in 2022) with several smaller adjacent spiculated nodules concerning for malignancy. There is also left perihilar airspace opacity extending into the upper and lower lobes with air bronchograms. Spoke with patient and family in the room about findings and direction on how to proceed and patient wished to proceed with pulmonary consult and possible bronchoscopy. WBC normal now. On room air. Pulmonary consulted and appreciate their input. CXR showing complete white out of left lung for the past 2 days Spoke with patient about comfort measures but he wants the PNA and cough treated and does not want the RUL lung mass evaluated. BNP 2520. With low EF, consider pulm edema contributing to these findings but felt less likely and BP soft and he remains on room air so hold on Lasix. Continue Meropenem and Doxycycline. CT chest showed persistent lung collapse NPO from midnight, for bronchoscopy per discussion with Dr Eddy Continue CPT with vest therapy. Continue mucinex, nebulizer treatments and mucomyst. For Bronchoscopy (2) Sepsis: Qualifiers: Acute respiratory failure type: with hypoxia Sepsis acute organ dys function status: with acute organ dysfunction Sepsis type: sepsis due to unspecified organism Severe sepsis acute organ dysfunction type: acute respiratory failure Severe sepsis shock status: without septic shock Qualified Code(s): A41.9 - Sepsis, unspecified organism; R65.20 - Severe sepsis without septic shock; J96.01 - Acute respiratory failure with hypoxia Code(s): A41.9 - Sepsis, unspecified organism Status: Acute Assessment and Plan: As above (3) Pulmonary mass: Code(s): R91.8 - Other nonspecific abnormal finding of lung field Status: Acute Assessment and Plan: CT chest in September 2022 showing RUL mass measuring 0.9cm. CT of the chest here shows increased RUL mass now measuring 4.7 cm with several smaller adjacent spiculated nodules concerning for malignancy. May also have left perihilar involvement as well resulting in collapse. Patient continues to decline evaluation of mass Treat PNA and provide symptomatic care (4) Urinary tract infection: Code(s): N39.0 - Urinary tract infection, site not specified Status: Acute Assessment and Plan: Urine and blood cultures were collected. Rocephin started for pneumonia but emiliana has hx of UTI with ESBL Klebsiella pneumoniae so abx was switched to meropenem (03/12). BCx NGTD UCx growing Klebsiella 50-100K colonies sensitive to meropenem and ertapenem but not rocephin, zosyn or levofloxicin Continue meropenem for 7 days (5) Atrial fibrillation with RVR: Code(s): I48.91 - Unspecified atrial fibrillation Status: Acute Assessment and Plan: The patient initially was AFib RVR in the emergency room but has auto converted. Echo showing EF 35-40%, diastolic dysfunction. Xarelto resumed but now on hold now for possible bronchoscopy. Metoprolol was started. He is in and out of AFib/RVR. Metoprolol IV given yesterday with benefit but AMio given today due to low BP before converting. Will advance metoprolol. Monitor on tele (6) CHF (congestive heart failure): Code(s): I50.9 - Heart failure, unspecified Status: Acute Assessment and Plan: Echo from outside facility in 2020 was read as EF of 63% and impaired diastolic relaxation grade 1. Echo here showing EF 35-40%. Continue metoprolol tartrate but convert to Toprol XL at discharge. Entresto added. Consider spironolactone. No empagliflozin given current urinary infection (7) CVA (cerebral vascular accident): Code(s): I63.9 - Cerebral infarction, unspecified Status: Acute Assessment and Plan: No residual issues. On Xarelto at home. Continue with Crestor. Holding Xarelto currently. PT/OT ordered (8) HLD (hyperlipidemia): Code(s): E78.5 - Hyperlipidemia, unspecified Status: Acute Assessment and Plan: Continue with Crestor (9) Benign prostatic hyperplasia without lower urinary tract symptoms: Code(s): N40.0 - Benign prostatic hyperplasia without lower urinary tract symptoms Status: Acute Assessment and Plan: Continue Flomax (10) Moderate protein-calorie malnutrition: Code(s): E44.0 - Moderate protein-calorie malnutrition Status: Acute Assessment and Plan: Moderate protein calorie malnutrition related to chronic loss of appetite as evidenced by intakes <75% needs >1 month; severe muscle wasting (temporalis, clavicles, shoulders) and severe fat loss (cheeks) Supplements ordered. Plan B12 Deficiency - on daily replacement DVT Prophylaxis - Xarelto hold, one dose of Lovenox tonight. OFr Bronchoscopy on Saturday Code status -DNR Disp - PT/OT Subjective Date/time seen: 03/18/25 14:20 Interval history: Comfortable at bedside For possible bronchoscopy tomorrow CT chest reviewed, and lung collapse persistent, NPO Review of Systems Constitutional: Constitutional: Reports as per HPI and Reports no additional constitutional complaints Eyes: Eyes: Reports as per HPI and Reports no additional eye complaints ENT: Reports system reviewed and no additional complaints, except as documented and Reports Normal hearing present Cardiovascular: Cardiovascular: Reports no additional cardiovascular complaints Respiratory: Respiratory: Reports as per HPI and Reports no additional respiratory complaints Gastrointestinal: Gastrointestinal: Reports as per HPI and Reports no additional gastrointestinal complaints Musculoskeletal: Musculoskeletal: Reports no additional musculoskeletal complaints Integumentary/Breasts: Skin/Breast: Reports system reviewed and no additional complaints, except as docu Neurologic: Reports system reviewed and no additional complaints, except as documented and Reports Normal hearing present Psychiatric: Psychiatric: Reports no additional psychiatric complaints and Reports as per HPI Hematologic/Lymphatic: Hematologic/Lymphatic: Reports no additional hematologic/lymphatic complaints Allergic/Immunologic: Allergic/Immunologic: Reports no additional allergic/immunologic complaints Exam Narrative: AF 97.7 120/37 94 18 95% ra Gen - NARD lying right side down. Chest - bronchial BS in the left lung field with improved air exchange, nml RR CV - RRR with extra beats. Tele showing sinus rhythm with PVCs Abd -soft. Scaphoid. Positive bowel sounds. Ext -no right pedal edema. Left [id number] amputation. Psych - Nml mood and affect Skin - Warm and dry Const: General: cooperative, healthy appearing, comfortable, no acute distress, well developed, awake, Physically active, average body habitus and well nourished Nutritional Appearance: average body habitus and well nourished Orientation/consciousness: oriented to person, oriented to place, oriented to time and patient oriented x3 HENMT: Head: normal to inspection, No palpable skull fracture present, normocephalic, atraumatic and abrasion Ears: external ears normal Eyes: General: appearance normal, both eyes and all related structures Alignment and Position: alignment normal Periorbital: periorbital findings normal Eyelids: eyelids normal Neck: Neck: normal visual inspection, full ROM and no lymphadenopathy Chest: Chest palpation & inspection: normal inspection of the chest Resp: Effort & Inspection: normal respiratory effort Auscultation: wheezes Cardio: Palpation: normal PMI Rate: regular rate Rhythm: regular rhythm Heart sounds: S1 normal heart sound present and S2 normal heart sound present Peripheral pulses: Peripheral pulses 2+ throughout GI: Inspection: normal to inspection : General: Yes no CVA tenderness Back/Spine/Pelvis: Back: no CVA tenderness Skin: General skin exam: normal color Lesions: no lesions Rashes: no rashes Trauma: no lacerations or abrasions Wounds: no wounds Hair: normal Nails: normal Neuro: General: oriented to person, oriented to place, oriented to time and patient oriented x3 Cranial nerves: Yes Normal hearing present Cognition (Neuro): normal cognition Speech: normal speech Motor exam (neuro): 5/5 motor strength present throughout Sensory Exam: normal sensation Extrem: General: normal to inspection Right upper extremity: normal to inspection and shoulder/upper arm Left upper extremity: normal to inspection and shoulder/upper arm Right lower extremity: normal to inspection Left lower extremity: normal to inspection Other: Left [id number] amputation Psych: Appearance: grossly normal Mental Status: mental status grossly normal Speech and movement: Normal speech and movement present Affect: normal affect Attitude: cooperative Thought process: Normal thought process present Insight: Good insight present (Psych) Judgement: Good judgement present (Psych) Other: Fair judgment insight Objective Data Vital Signs Vital Signs: Vital Signs - 24 hr 03/17/25 15:39 03/17/25 16:00 03/17/25 17:00 Temperature 98.7 F Pulse Rate 78 83 Respiratory Rate 20 Blood Pressure 104/47 L Pulse Oximetry 94 Oxygen Delivery Room Air 03/17/25 18:00 03/17/25 19:40 03/17/25 20:00 Temperature 98.6 F Pulse Rate 78 82 84 Respiratory Rate 23 H Blood Pressure 117/42 L Pulse Oximetry 96 Oxygen Delivery 03/17/25 20:00 03/17/25 20:38 03/17/25 20:44 Temperature Pulse Rate 81 73 Respiratory Rate 20 Blood Pressure Pulse Oximetry 95 Oxygen Delivery Room Air 03/17/25 20:55 03/17/25 20:58 03/17/25 22:00 Temperature Pulse Rate 79 91 81 Respiratory Rate Blood Pressure Pulse Oximetry Oxygen Delivery 03/18/25 00:00 03/18/25 00:00 03/18/25 02:00 Temperature 98.5 F Pulse Rate 67 66 70 Respiratory Rate 28 H Blood Pressure 121/70 Pulse Oximetry 100 Oxygen Delivery 03/18/25 02:25 03/18/25 02:36 03/18/25 04:00 Temperature 98.0 F Pulse Rate 75 72 70 Respiratory Rate 20 20 21 H Blood Pressure 115/60 Pulse Oximetry 96 Oxygen Delivery 03/18/25 04:00 03/18/25 06:00 03/18/25 07:50 Temperature 97.9 F Pulse Rate 71 73 69 Respiratory Rate 26 H Blood Pressure 140/49 L Pulse Oximetry 95 Oxygen Delivery 03/18/25 08:00 03/18/25 08:18 03/18/25 08:27 Temperature Pulse Rate 88 84 88 Respiratory Rate 20 20 Blood Pressure Pulse Oximetry Oxygen Delivery 03/18/25 09:04 03/18/25 10:00 03/18/25 11:44 Temperature 98.2 F Pulse Rate 87 83 78 Respiratory Rate 22 H Blood Pressure 107/72 Pulse Oximetry 96 Oxygen Delivery Intake/Output Intake/Output: Intake & Output 03/15/25 03/16/25 03/17/25 03/18/25 23:59 23:59 23:59 23:59 Intake Total 895 1380 1740 995 Output Total 875 650 800 150 Balance 20 730 940 845 Meds/Results Medications: Active Medications Generic Name Dose Route Start Last Admin Trade Name Freq PRN Reason Stop Dose Admin Acetaminophen 650 mg 03/12/25 23:24 03/12/25 23:29 Acetaminophen 325 Mg Tablet PO 650 mg Q6H PRN Administration Mild Pain (1-3) or Fever Acetylcysteine 200 mg 03/15/25 14:00 03/18/25 08:10 Acetylcysteine 20% Inhal Soln 800 Mg/4 Ml Vial INHALATION 200 mg Q6HRT MANOLO Administration Cyanocobalamin 1,000 mcg 03/14/25 09:00 03/18/25 09:04 Cyanocobalamin 1,000 Mcg Tablet PO 1,000 mcg QAM MANOLO Administration Dornase Vinicius 2.5 mg 03/16/25 11:01 03/18/25 08:17 Dornase Vinicius Inh Soln 1 Mg/Ml 2.5 Ml Amp INHALATION 04/15/25 11:00 2.5 mg Q12HRT MANOLO Administration Guaifenesin 1,200 mg 03/15/25 11:30 03/18/25 09:04 Guaifenesin 12 Hr 600 Mg Tabcr PO 1,200 mg Q12HR MANOLO Administration Meropenem 1 gm/ Sodium 100 mls @ 200 mls/hr 03/12/25 00:00 03/18/25 12:14 Chloride IVPB 03/19/25 23:59 200 mls/hr Q12H MANOLO Administration Doxycycline Hyclate 100 mg/ 100 mls @ 100 mls/hr 03/17/25 21:00 03/18/25 09:05 Sodium Chloride IVPB 03/19/25 23:59 100 mls/hr Q12H MANOLO Administration Ipratropium [place] 0.5 mg 03/12/25 02:00 03/18/25 08:09 Ipratropium Br 0.02% Inh Soln 0.5 Mg/2.5 Ml Vial INHALATION 0.5 mg Q6HRT MANOLO Administration Metoprolol Tartrate 25 mg 03/16/25 21:00 03/18/25 09:04 Metoprolol Tartrate 25 Mg Tablet PO 25 mg Q12HR MANOLO Administration Miscellaneous Information 1 each 03/18/25 00:01 Please Renew Dornase. Per [employer] Procedure, It Will Discontinue If Not Renewed. XX 04/17/25 00:00 CLARIFY MANOLO Rivaroxaban 2.5 mg 03/11/25 23:20 03/13/25 08:25 Rivaroxaban 2.5 Mg Tablet PO 2.5 mg On Hold: 03/13/25 18:52 Q12HR MANOLO Administration Rosuvastatin Calcium 40 mg 03/12/25 09:00 03/18/25 09:05 Rosuvastatin 20 Mg Tablet PO 40 mg DAILY MANOLO Administration Sacubitril/Valsartan 1 tab 03/13/25 21:00 03/18/25 09:04 Sacubitril/Valsartan 12-13 Mg Tablet PO 1 tab Q12HR MANOLO Administration Tamsulosin HCl 0.4 mg 03/15/25 21:00 03/18/25 09:04 Tamsulosin Hcl 0.4 Mg Capsule PO 0.4 mg Q12HR MANOLO Administration Radiology Results: ITS Impressions Cervical Spine CT 03/11/25 14:33 IMPRESSION: HEAD: 1. No acute intracranial findings. C-SPINE: 1. No acute fracture. 2. Incompletely seen dense probable pneumonia right side. Chest x-ray today demonstrates worse pneumonia left lung. Recommend short interval follow-up chest x-rays and/or CT chest to exclude underlying lesion. Head CT 03/11/25 14:33 IMPRESSION: HEAD: 1. No acute intracranial findings. C-SPINE: 1. No acute fracture. 2. Incompletely seen dense probable pneumonia right side. Chest x-ray today de monstrates worse pneumonia left lung. Recommend short interval follow-up chest x-rays and/or CT chest to exclude underlying lesion. Chest X-Ray 03/18/25 09:14 Impression: 1: Persistent complete opacification left hemithorax without significant change. Differential diagnosis includes atelectasis, effusion and centrally obstructing mass (abrupt termination of the left mainstem bronchus noted). 2: Spiculated pleural-based right upper lobe mass, suspicious for bronchogenic carcinoma. Chest CT 03/18/25 10:26 IMPRESSION: 1. Obstructing left hilar soft tissue with abrupt cut off of left mainstem bronchus, resulting in complete collapse of the left lung and moderate left pleural effusion-highly concerning for obstructing central bronchogenic malignancy. 2: Mediastinal lymphadenopathy, suspicious for jake involvement. Recommend pulmonary consultation for bronchoscopy with biopsy. Consider PET/CT scan for staging and evaluation of right lung opacity and mediastinal lymphadenopathy. Consider thoracentesis of pleural effusion if clinically indicated for diagnostic purposes. 3: Right upper lobe pleural-based spiculated opacity, with additional patchy areas of consolidation and groundglass opacification in the right-May represent synchronous malignancy, post obstructive infection or inflammatory process. 4: Hypodense hepatic masses, most likely benign cysts. Labs Labs: Laboratory Results - last 24 hr 03/16/25 03/18/25 08:55 03:38 WBC 9.6 RBC 3.83 L Hgb 10.7 L Hct 34.9 L MCV 91.1 MCH 27.9 MCHC 30.7 L RDW 16.3 H Plt Count 269 MPV 9.2 Immature Gran % (Auto) 0.5 Neut % (Auto) 84.5 H Lymph % (Auto) 7.4 L [place] % (Auto) 6.5 Eos % (Auto) 0.8 Baso % (Auto) 0.3 Lymph # (Auto) 0.71 L [place] # (Auto) 0.6 Eos # (Auto) 0.1 Baso # (Auto) 0.0 Abs Immat Gran (auto) 0.05 H Absolute Neuts (auto) 8.1 H Absolute Nucleated RBC 0.000 Nucleated RBC % 0.0 Sodium 140 Potassium 3.6 Chloride 112 H Carbon Dioxide 23 Anion Gap 5 BUN 21 H Creatinine 0.79 Estim Creat Clear Calc 50 Estimated GFR > 60 Glucose 105 Calcium 8.3 L Magnesium 2.1 Total Bilirubin 0.4 AST 185 H ALT 203 H Alkaline Phosphatase 82 Total Protein 5.7 L Albumin 2.4 L Chlamy pneumoniae PCR Not detected Adenovirus (PCR) Not detected B. pertussis DNA (PCR) Not detected B.parapertussis DNA PCR Not detected Coronavirus OC43 (PCR) Not detected Coronavirus HKU1 (PCR) Not detected Coronavirus 229E (PCR) Not detected Coronavirus NL63 (PCR) Not detected Human Metapneumovir PCR Not detected Influenza A (H1) PCR Not detected Influ A (H1/09) PCR Not detected Influenza A (H3) PCR Not detected Influenza Type A (PCR) Not detected Influenza Type B (PCR) Not detected M. pneumoniae (PCR) Not detected Parainfluenza 1 (PCR) Not detected Parainfluenza 2 (PCR) Not detected Parainfluenza 3 (PCR) Not detected Parainfluenza 4 (PCR) Not detected RSV (PCR) Not detected Entero/Rhino (PCR) Not detected SARS-CoV-2 (PCR) Not detected Quality VTE Prophylaxis VTE prophylaxis: pharmacologic ordered
[2025-03-19] VITALS (28 sets, daily range): BP systolic 102–130; BP diastolic 47–74; PULSE 66–95; RESP 17–31; TEMP 36.2–37.1; O2SAT 94–100
[2025-03-19] MEDS: IPRATROPIUM BR 0.02% INH SOLN 0.5 MG/2.5 ML VIAL INHALATION ×4 (03:00→19:47)
[2025-03-19] MEDS: ACETYLCYSTEINE 20% INHAL SOLN 800 MG/4 ML VIAL 200 MG INHALATION ×2 (03:00→08:39)
[2025-03-19 04:14] LABS: Hematocrit 37.4 % (42.0-52.0); Hemoglobin 11.4 g/dL (14.0-18.0); Immature Granulocyte Percent A 0.6 % (0-0.5); Lymphocytes Absolute Auto 0.85 K/mm3 (0.9-3.2); Mean Corpuscular HGB Conc 30.5 g/dl (32-36); Mean Corpuscular Hemoglobin 28.1 pg (26-34); Mean Corpuscular Volume 92.1 fl (80-100); Nucleated Red Blood Cells Absolute Auto 0.000 K/mm3 (0.0-0.012); Nucleated Red Blood Cells Perc 0.0 % (0.0-0.2); Platelet Count Result 290 k/mm3 (150-375); Red Blood Count 4.06 M/mm3 (4.6-6.20); White Blood Count 10.2 K/mm3 (4.5-10.0)
[2025-03-19 04:36] LABS: Alanine Aminotransferase 197 U/L (6-50); Albumin Level 2.5 g/dL (3.5-5.1); Alkaline Phosphatase 90 U/L (38-126); Anion Gap 4 mmol/L (4-12); Aspartate Amino Transferase 142 U/L (17-59); Bilirubin,Total 0.5 mg/dL (0.2-1.3); Blood Urea Nitrogen 19 mg/dL (9-20); Calcium 8.3 mg/dL (8.4-10.2); Carbon Dioxide 20 mmol/L (22-30); Chloride 114 mmol/L (98-107); Estimated CRCL calculation 61 ml/min; Estimated Glomerular Filt Rate > 60; Glucose 100 mg/dL (65-110); Magnesium 2.1 mg/dL (1.6-2.3); Potassium 3.8 mmol/L (3.4-5.0); Sodium 138 mmol/L (137-145); Total Protein 5.8 g/dL (6.3-8.2)
[2025-03-19 06:02] LABS: INR 1.4; Prothrombin Time 16.7 Seconds (11.1-14.7)
[2025-03-19 06:03] LABS: Partial Thromboplastin Time 36.3 Seconds (22.3-36.8)
[2025-03-19 07:30] LABS: NT Pro B Type Natriuretic Pept 2080 pg/mL (19.9-100)
[2025-03-19 07:39] LABS: CRP 10.5 mg/dL (<1.0)
--- NOTE | 2025-03-19 08:50 | P.PNPL_ITS ---
Progress Note: A&P Assessment and Plan (1) Pneumonia: Qualifiers: Laterality: left Lung location: lower lobe of lung Pneumonia type: due to unspecified organism Qualified Code(s): J18.9 - Pneumonia, unspecified organism Code(s): J18.9 - Pneumonia, unspecified organism Status: Acute Assessment and Plan: 03/11/2025: Patient presented to the emergency room with weakness, and 1 week of productive cough. Blood pressure 104/62, heart rate 137, respirations 27, room air saturations 89%. 3 L nasal cannula 97%. Lungs were clear. White blood cell count 14.2, creatinine 1.01, COPD 5.1, urine with greater than 100 white blood cells, 4+ bacteria. Influenza, RSV and COVID RT PCR assay negative. Chest x-ray showed left perihilar consolidation. Admitted and treated for UTI and pneumonia. Patient was started on doxycycline and Rocephin. He was given 2 L IV fluid. Patient previously had a pneumonia with Klebsiella in 2023 that was resistant to ceftriaxone and switch to meropenem. Doxycycline was continued. MRSA swab negative. CT scan on 03/12/2025 demonstrated enlarging spiculated pleural based right upper lobe nodule now measuring 4.7 x 3.2 cm. Left perihilar consolidation with air bronchograms in the left upper and lower lobes. Mild apical predominant centrilobular emphysema. I reviewed the scan with the radiologist and was difficult to tell if there was any hilar or mediastinal lymphadenopathy on the left, is unclear if the left airway was compromised or if there was a left mass. There is a small left pleural effusion. 03/15/2025: Patient tells me he has improved since admission. He tells me he is breathing 50% back to his normal. His cough and phlegm production or better and the concurs. He has shortness of breath at rest. Room air saturation 97%. He is afebrile. White blood cell count 11.1. Creatinine 0.74. CRP has increased from 5.1 on 03/11/2025 to 15.9 today. Procalcitonin is 0.2 today. Yesterday patient was -160 mL. Cumulative he is positive 2.1 L since admission. His weight today is 51 kg. Chest x-ray today shows 90% whiteout of the left lung with shift to the mediastinum to the left. plan: Agree with treating patient for bacterial infection. He is on meropenem, started 03/12 day 4. He is on doxycycline, started 03/11, day 5. COVID, RSV, influenza RT PCR assay negative. Urine for streptococcal, urine for Legionella pending. I will send respiratory pathogen panel and serum mycoplasma IgM. Patient is weak and debilitated and now with near complete collapse of the left lower lobe. Suspect mucus plug. Will continue levalbuterol and ipratropium nebulizers q.6. Will add Mucomyst nebulizer q.6, coronary flutter valve, vest treatment t.i.d.. Will add guaifenesin 1200 mg p.o. b.i.d.. 03/16/2025: Patient tells me he is minimally improved. States he is breathing 50% back to his normal. He still has rest shortness of breath. His cough and clear phlegm are unchanged. When I enter the room he was on room air with saturations 96%. He was in AFib RVR rate 130. He is afebrile. White blood cell count 9.0, creatinine 0.75. BNP today is 2520. Yesterday he was positive 20 mL. Cumulative he is positive 2.3 L since admission. His weight today is 52.2 kg. he is receiving the vest treatment but noticed no changes in his phlegm production. Chest x-ray today with continued near complete collapse of the left lung, Right upper lobe and right lower lobe infiltrates. Plan: Patient is afebrile, leukocytosis has resolved, remains on room air. Continue meropenem, day 5, doxycycline day 5. Patient continued left lung collapse. he has AFib with RVR and I will discontinue levalbuterol nebulizer. I will continue ipratropium nebulizer, Mucomyst nebulizer and add dornase nebulizer today (if available). I will continue guaifenesin 1200 mg p.o. b.i.d., vest therapy t.i.d. and Cornet flutter valve. 03/17/2025: Patient tells me he is improved. States he is breathing 75% back to his normal. He tells me he is not short of breath at rest and had no dyspnea on exertion when pivoting to the chair. His cough Is minimally improved and he still has clear phlegm. When I enter the room he was on room air with saturations 98%. He was in sinus with PVC and PAC. He is afebrile. White blood cell count 9.1, creatinine 0.75. Yesterday he was positive 730 mL. Cumulative he is positive 3.0 L. His weight today is 54.5. He is receiving the vest treatment but noticed no changes in his phlegm production. He notices no change with a nebulizers. Chest x-ray today with continued near complete collapse of the left lung, Right upper lobe and right lower lobe infiltrates. Plan: Patient is afebrile, leukocytosis has resolved, remains on room air. S/P ceftriaxone X 1 on 03/11. s/p doxycycline 03/12 to 03/17 and continue meropenem, day 6 of 7. Patient had AFib with RVR and I discontinued levalbuterol nebulizer. I will continue ipratropium nebulizer q.6 hours, Mucomyst nebulizer q.6 hours and add dornase nebulizer q.12 hours. I will continue guaifenesin 1200 mg p.o. b.i.d., vest therapy t.i.d. and Cornet flutter valve. will perform chest x-ray on 03/18/2025. If this demonstrates re-expansion of the left lung will continue medications as is. If this demonstrates continued collapse of the left lung will order CT scan of the chest without contrast. If this shows continued collapse of the left lung will plan on bronchoscopy on 03/19/2025 if there is availability with operating room staff and Anesthesia. I am waiting to hear back from them. Will discontinue rivaroxaban after tonight's dose and make patient NPO after midnight on 03/18/2025 in anticipation of bronchoscopy on 03/19/2025. will obtain chest x-ray the morning of 03/19/2025. Pulmonary inpatient consult services will resume on 03/19/2025. Call with questions. 03/19/2025: Patient tells me he is slowly improving. States he is 80% back to normal. He did not sleep because he is nervous about the bronchoscopy. He has no rest shortness of breath. Pivoted to the chair and had no dyspnea on exertion. He still has a cough with thick phlegm and no hemoptysis. Room air saturations 95%. He is afebrile. White blood cell count 10.2, creatinine 0.67. CRP has improved from 15.9 on 03/15/2025 to 10.5 today. BNP has improved from 2520 on 03/16/2025 to 2080 today. Yesterday he was positive 1.5 L. Cumulative he is positive 5.1 L since admission. His weight today is 55.2. Chest x-ray this morning shows continued left lung white out. Plan: Patient has had no re-expansion of his lung after treatment with merope nem, day 8 and doxycycline, day 9. he has received ipratropium nebulizers q.6 hours, Mucomyst nebulizers q.6 hours and 72 hours of dornase. He continues on guaifenesin 1200 p.o. b.i.d.. Will continue antibiotics today and the patient is scheduled to get bronchoscopy later today. He remains on room air. Discussed with patient, in room and son in room and Dr. Tam, will follow with you. 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 03/15/25: Regarding his right upper lobe lung nodule on 09/26/2022 this was 9 x 6 mm. Patient declined workup. Repeat scan on 04/03/2023 demonstrated increased growth at 1.2 cm. Patient declined workup. I reviewed patient's serial CT scans of the chest with Radiology and right upper lobe lung lesion concerning for cancer. Difficult to assess left hilar, mediastinal and lung as there are dense consolidative infiltrates. Plan: I recommended to the patient that we treat his right pneumonia and once he is improved clinically perform a biopsy of the right upper lobe lung mass. At this time the patient told me he declined this and does not want to know if he has cancer and just wishes to ride the storm out. I informed him that there were treatments for cancer and he told me he does not want radiation or chemotherapy in the future. I told him surgery may be an option but given his comorbidities and debilitated state I suspect he would be too frail to undergo thoracotomy. Again he told me he wanted to wait and not perform any biopsies at this time. Will readdress after he has had time to talk to his daughter and who were in the room. 03/16/25: The patient tells me he is not interested in any further workup of his right upper lobe increasing lung mass. I informed the him that there are good treatments if this is cancer and he says he does not want treatment and does not want any further workup. He has spoken to his family regarding this decision. Plan: No further workup per patient's wishes. 03/18/2025: Patient had a CT scan of the chest Compared with 03/12/2025: no change in his pleural based right upper lobe consolidative infiltrate. left mainstem airway occlusion has worsened with complete collapse of the left lobe and a increasing left pleural effusion. Lymphadenopathy unchanged. 03/19/2025: Chest x-ray this morning shows continued left lung white out. Plan: Bronchoscopy later today. Risks including bleeding, infection, pneumothorax and possible postprocedure mechanical ventilation and benefits were explained to the patient, his and his son. Patient wishes to proceed. Subjective Date/time seen: 03/19/25 08:50 Interval history: 03/15/2025: This is a new pulmonary consult for right upper lobe lung mass and left lung collapse. 79-year-old man with Low-grade papillary urothelial carcinoma on 01/12/2020, prostate cancer status post 45 radiation treatments 2020, peripheral vascular disease status post left AKA, CVA, hypertension, congestive heart failure, right upper lobe lung nodule. Regarding his right upper lobe lung nodule on 09/26/2022 this was 9 x 6 mm. Patient declined workup. Repeat scan on 04/03/2023 demonstrated increased growth at 1.2 cm. Patient declined workup. 03/11/2025: Patient presented to the emergency room with weakness, and 1 week of productive cough. Blood pressure 104/62, heart rate 137, respirations 27, room air saturations 89%. 3 L nasal cannula 97%. Lungs were clear. White blood cell count 14.2, creatinine 1.01, COPD 5.1, urine with greater than 100 white blood cells, 4+ bacteria. Influenza, RSV and COVID RT PCR assay negative. Chest x-ray showed left perihilar consolidation. Admitted and treated for UTI and pneumonia. Patient was started on doxycycline and Rocephin. He was given 2 L IV fluid. Patient previously had a pneumonia with Klebsiella in 2023 that was resistant to ceftriaxone and switch to meropenem. Doxycycline was continued. MRSA swab negative. CT scan on 03/12/2025 demonstrated enlarging spiculated pleural based right upper lobe nodule now measuring 4.7 x 3.2 cm. Left perihilar consolidation with air bronchograms in the left upper and lower lobes. I reviewed the scan with the radiologist and was difficult to tell if there was any hilar or mediastinal lymphadenopathy on the left, is unclear if the left airway was compromised or if there was a left mass. There is a small left pleural effusion. 03/15/2025: Patient tells me he has improved since admission. He tells me he is breathing 50% back to his normal. His cough and phlegm production or better and the concurs. He has shortness of breath at rest. Room air saturation 97%. He is afebrile. White blood cell count 11.1. Creatinine 0.74. CRP has increased from 5.1 on 03/11/2025 to 15.9 today. Procalcitonin is 0.2 today. Yesterday patient was -160 mL. Cumulative he is positive 2.1 L since admission. His weight today is 51 kg. Chest x-ray today shows 90% whiteout of the left l lopez with shift to the mediastinum to the left. 03/16/2025: Patient tells me he is minimally improved. States he is breathing 50% back to his normal. He still has rest shortness of breath. His cough and clear phlegm are unchanged. When I enter the room he was on room air with saturations 96%. He was in AFib RVR rate 130. He is afebrile. White blood cell count 9.0, creatinine 0.75. BNP today is 2520. Yesterday he was positive 20 mL. Cumulative he is positive 2.3 L since admission. His weight today is 52.2 kg. he is receiving the vest treatment but noticed no changes in his phlegm production. Chest x-ray today with continued near complete collapse of the left lung, Right upper lobe and right lower lobe infiltrates. Dornase was added. 03/17/2025: Patient tells me he is improved. States he is breathing 75% back to his normal. He tells me he is not short of breath at rest and had no dyspnea on exertion when pivoting to the chair. His cough Is minimally improved and he still has clear phlegm. When I enter the room he was on room air with saturations 98%. He was in sinus with PVC and PAC. He is afebrile. White blood cell count 9.1, creatinine 0.75. Yesterday he was positive 730 mL. Cumulative he is positive 3.0 L. His weight today is 54.5. He is receiving the vest treatment but noticed no changes in his phlegm production. He notices no change with a nebulizers. Chest x-ray today with continued near complete collapse of the left lung, Right upper lobe and right lower lobe infiltrates. 03/18/2025: Patient had a CT scan of the chest Compared with 03/12/2025: no change in his pleural based right upper lobe consolidative infiltrate. left mainstem airway occlusion has worsened with complete collapse of the left lobe and a increasing left pleural effusion. Lymphadenopathy unchanged. 03/19/2025: Patient tells me he is slowly improving. States he is 80% back to normal. He did not sleep because he is nervous about the bronchoscopy. He has no rest shortness of breath. Pivoted to the chair and had no dyspnea on exertion. He still has a cough with thick phlegm and no hemoptysis. Room air saturations 95%. He is afebrile. White blood cell count 10.2, creatinine 0.67. CRP has improved from 15.9 on 03/15/2025 to 10.5 today. BNP has improved from 2520 on 03/16/2025 to 2080 today. Yesterday he was positive 1.5 L. Cumulative he is positive 5.1 L since admission. His weight today is 55.2. Chest x-ray this morning shows continued left lung white out. DATA: 03/18/25: EXAMINATION: CT diagnostic chest w con INDICATION: Left lung collapse. Pleural effusion. COMPARISON: 03/12/2020 FINDINGS: There is abnormal soft tissue at the left hilum obstructing the left mainstem bronchus, concerning for malignancy. There is complete left lung collapse with moderate left pleural effusion. No significant mediastinal deviation. There is a spiculated pleural-based mass with air bronchograms in the right upper lobe. Differential diagnosis includes bronchogenic carcinoma and/or superimposed pneumonia. There is mediastinal lymphadenopathy. There are multiple hypodense lesions of the liver with fluid attenuation, most likely benign cysts. With a lymph node measuring 1.5 cm transversely. There is a pleural-based spiculated soft tissue in the right upper lobe with air bronchograms no central pulmonary embolism there is atherosclerosis of the aorta without evidence for aneurysm or dissection. Borderline heart size. There are multiple hypodense masses of the liver the largest of which exhibit fluid attenuation, most likely benign there are patchy areas of additional consolidation in the right upper and lower lobe. 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 IMPRESSION: 1. Obstructing left hilar soft tissue with abrupt cut off of left mainstem bronchus, resulting in complete collapse of the left lung and moderate left pleural effusion-highly concerning for obstructing central bronchogenic malignancy. 2: Mediastinal lymphadenopathy, suspicious for jake involvement. Recommend pulmonary consultation for bronchoscopy with biopsy. Consider PET/CT scan for staging and evaluation of right lung opacity and mediastinal lymphadenopathy. Consider thoracentesis of pleural effusion if clinically indicated for diagnostic purposes. 3: Right upper lobe pleural-based spiculated opacity, with additional patchy areas of consolidation and groundglass opacification in the right-May represent synchronous malignancy, post obstructive infection or inflammatory process. 4: Hypodense hepatic masses, most likely benign cysts. 03/12/25: Echo Summary 1. Complete two-dimensional, color flow and Doppler transthoracic echocardiogram is performed. 2. Left ventricular systolic function is mildly reduced, estimated at 35-40. 3. There is mildly increased left ventricular wall thickness. 4. Left ventricular chamber dimension is mildly enlarged. 5. The left ventricular diastolic function is abnormal. 6. Left atrial chamber dimension is mildly enlarged. 7. There is mild pulmonic regurgitation. Right Ventricle Right ventricular chamber dimension is normal. Right ventricular systolic function is normal. Left Atria Left atrial chamber dimension is mildly enlarged. Right Atria Right atrial chamber dimension is normal. 03/12/2025: CT diagnostic chest wo con HISTORY:perihilar PNA, smoker COMPARISON: 04/02/2023. TECHNIQUE: Axial images of the chest were obtained without infusion of intravenous contrast. Dose optimization technique was utilized. FINDINGS: The examination demonstrates increase in patchy nodular opacity within the right upper lobe which now measures up to 4.7 x 3.2 cm. There is left perihilar consolidation extending into the upper and lower lobes where there are air bronchograms noted. There is a small left pleural effusion. Cardiac size and mediastinal configuration are normal in appearance. No hilar or mediastinal lymphadenopathy is seen. The thoracic aorta is normal in caliber. Osseous structures are intact. Hepatic cysts are stable. IMPRESSION: Increase in spiculated pleural-based nodule within the right upper lobe measuring up to 4.7 x 3.2 cm noted. There are several smaller adjacent spic ulated nodules. This is concerning for malignancy. There is left perihilar airspace opacity extending into the upper and lower lobes with air bronchograms noted. There is small left pleural effusion. Consider follow-up bronchoscopy. 04/02/2023; CT Scan of the Chest without Contrast: Clinical Indication: Lung nodule COMPARISON: 09/26/2022 Findings: There is no evidence of any significant mediastinal, hilar or axillary lymphadenopathy. There are atherosclerotic ossifications of the aorta and lower [place] coronary arteries. Status post probable CABG. There is no evidence of pleural or pericardial effusion. Right upper lobe pulmonary nodule is mild increase in size, now measuring up to 1.2 cm in diameter. Stable probable emphysematous change in right apical scarring. Images through the upper abdomen reveal small hepatic cysts. Impression: Right upper lobe pulmonary nodule is increased in size, now measuring 1.2 cm. Interval growth is suspicious for small neoplastic lesion. Consider attempted tissue sampling and/or PET/CT at this time. Stable emphysematous change and right apical scarring. 09/26/2022: EXAMINATION: CT diagnostic chest wo con INDICATION: R91.1 - Solitary pulmonary nodule COMPARISON: None FINDINGS: Mild emphysema with mild left and moderate right apical pleural-parenchymal scarring. 9 x 6 mm right upper lobe nodule. Small calcified right lower lobe nodule consistent with old granulomatous disease. Groundglass opacities and irregular septal line thickening at the dependent periphery of the right lower lobe most likely atelectasis with differential including less likely mild pulmonary edema or chronic interstitial fibrosis with nonspecific interstitial pneumonia (NSIP) pattern. No pleural effusion. Heart size normal. Atherosclerotic coronary artery calcification. Median sternotomy wires and mediastinal surgical clips are consistent with coronary artery bypass grafting. No pericardial effusion. Enlargement of the central pulmonary arteries consistent with pulmonary arterial hypertension. 2 cm low-attenuation cyst in the left hepatic lobe. A millimeter exophytic lesion at the right kidney which is more dense in the surrounding renal parenchyma, indeterminate but most likely a complex proteinaceous/hemorrhagic cyst. Suggestion of hydronephrosis at the upper pole the left kidney with effacement of the previously seen renal sinus fat. Mild thoracic spondylosis. IMPRESSION: 1. Mild emphysema with biapical pleural-parenchymal scarring, right greater than left. 2. Indeterminate 9 x 6 mm right upper lobe nodule. Correlate with any prior outside imaging and if long-term stability cannot be confirmed, would recommend follow-up chest CT in months. 3. Effacement of the renal sinus fat at the visualized upper pole the left kidney which is new since 06/20/2022 with suggestion of surface hydronephrosis. Recommend correlation with urinalysis and consider further evaluation with pre and postcontrast CT . Review of Systems Constitutional: Constitutional: Reports no additional constitutional complaints Eyes: Eyes: Reports no additional eye complaints ENT: Reports system reviewed and no additional complaints, except as documented Cardiovascular: Cardiovascular: Reports no additional cardiovascular complaints Respiratory: Respiratory: Reports no additional respiratory complaints Gastrointestinal: Gastrointestinal: Reports no additional gastrointestinal complaints Musculoskeletal: Musculoskeletal: Reports no additional musculoskeletal complaints Neurologic: Reports system reviewed and no additional complaints, except as documented Psychiatric: Psychiatric: Reports no additional psychiatric complaints Endocrine: Endocrine: Reports no additional endocrine complaints Hematologic/Lymphatic: Hematologic/Lymphatic: Reports no additional hematologic/lymphatic complaints Allergic/Immunologic: Allergic/Immunologic: Reports no additional a llergic/immunologic complaints Exam Const: General: cooperative, comfortable and no acute distress Orientation/consciousness: oriented to person, oriented to place and oriented to time Other: weak, debilitated, cachectic HENMT: Head: normal to inspection Ears: hearing grossly normal bilaterally Eyes: General: appearance normal, both eyes and all related structures Neck: Neck: normal visual inspection Chest: Chest palpation & inspection: normal inspection of the chest Resp: Effort & Inspection: normal respiratory effort and able to speak in complete sentences Auscultation: no crackles, no rales, no rhonchi, no wheezes and diminished lung sounds Other: Minimal breath sounds left hemithorax. Cardio: Jugular venous distension: no JVD GI: Inspection: normal to inspection Skin: General skin exam: normal color Neuro: General: oriented to person, oriented to place and oriented to time Extrem: General: normal to inspection and no edema Psych: Appearance: grossly normal Objective Data Vital Signs Vital Signs: Vital Signs - 24 hr 03/18/25 09:04 03/18/25 10:00 03/18/25 11:44 Temperature 36.8 C Pulse Rate 87 83 78 Respiratory Rate 22 H Blood Pressure 107/72 Pulse Oximetry 96 Oxygen Delivery Fraction of Inspired Oxygen 03/18/25 12:00 03/18/25 14:00 03/18/25 14:41 Temperature Pulse Rate 72 69 69 Respiratory Rate 20 Blood Pressure Pulse Oximetry Oxygen Delivery Fraction of Inspired Oxygen 03/18/25 14:48 03/18/25 15:28 03/18/25 16:00 Temperature 36.8 C Pulse Rate 73 61 74 Respiratory Rate 20 24 H Blood Pressure 101/43 L Pulse Oximetry 94 Oxygen Delivery Fraction of Inspired Oxygen 03/18/25 18:00 03/18/25 20:00 03/18/25 20:00 Temperature 36.9 C Pulse Rate 81 77 77 Respiratory Rate 24 H Blood Pressure 126/56 L Pulse Oximetry 95 Oxygen Delivery Fraction of Inspired Oxygen 03/18/25 20:16 03/18/25 20:16 03/18/25 20:30 Temperature Pulse Rate 77 77 80 Respiratory Rate 18 18 18 Blood Pressure Pulse Oximetry 93 Oxygen Delivery Room Air Fraction of Inspired Oxygen 21 03/18/25 20:35 03/18/25 22:00 03/18/25 23:57 Temperature 36.7 C Pulse Rate 80 73 67 Respiratory Rate 22 H Blood Pressure 117/50 L Pulse Oximetry 96 Oxygen Delivery Fraction of Inspired Oxygen 03/19/25 00:00 03/19/25 02:00 03/19/25 03:00 Temperature Pulse Rate 67 70 71 Respiratory Rate 20 Blood Pressure Pulse Oximetry Oxygen Delivery Fraction of Inspired Oxygen 03/19/25 03:15 03/19/25 04:00 03/19/25 04:00 Temperature 36.6 C Pulse Rate 74 71 74 Respiratory Rate 20 22 H Blood Pressure 115/55 L Pulse Oximetry 94 Oxygen Delivery Fraction of Inspired Oxygen 03/19/25 06:00 03/19/25 07:58 03/19/25 08:45 Temperature 36.4 C L Pulse Rate 72 70 80 Respiratory Rate 22 H 20 Blood Pressure 121/49 L Pulse Oximetry 95 Oxygen Delivery Fraction of Inspired Oxygen Intake/Output Intake/Output: Intake & Output 03/16/25 03/17/25 03/18/25 03/19/25 23:59 23:59 23:59 23:59 Intake Total 1380 1740 2162 Output Total 650 800 650 550 Balance 138 697 8194 -550 Meds/Results Medications: Active Medications Generic Name Dose Route Start Last Admin Trade Name Freq PRN Reason Stop Dose Admin Acetaminophen 650 mg 03/12/25 23:24 03/12/25 23:29 Acetaminophen 325 Mg Tablet PO 650 mg Q6H PRN Administration Mild Pain (1-3) or Fever Cyanocobalamin 1,000 mcg 03/14/25 09:00 03/18/25 09:04 Cyanocobalamin 1,000 Mcg Tablet PO 1,000 mcg QAM MANOLO Administration Guaifenesin 1,200 mg 03/15/25 11:30 03/18/25 20:36 Guaifenesin 12 Hr 600 Mg Tabcr PO 1,200 mg Q12HR MANOLO Administration Meropenem 1 gm/ Sodium 100 mls @ 200 mls/hr 03/12/25 00:00 03/19/25 00:15 Chloride IVPB 03/19/25 23:59 Not Given Q12H MANOLO Doxycycline Hyclate 100 mg/ 100 mls @ 100 mls/hr 03/17/25 21:00 03/18/25 20:34 Sodium Chloride IVPB 03/19/25 23:59 100 mls/hr Q12H MANOLO Administration Ipratropium [place] 0.5 mg 03/12/25 02:00 03/19/25 08:39 Ipratropium Br 0.02% Inh Soln 0.5 Mg/2.5 Ml Vial INHALATION 0.5 mg Q6HRT MANOLO Administration Metoprolol Tartrate 25 mg 03/16/25 21:00 03/18/25 20:35 Metoprolol Tartrate 25 Mg Tablet PO 25 mg Q12HR MANOLO Administration Miscellaneous Information 1 each 03/18/25 00:01 Please Renew Dornase. Per [employer] Procedure, It Will Discontinue If Not R enewed. XX 04/17/25 00:00 CLARIFY MANOLO Rivaroxaban 2.5 mg 03/11/25 23:20 03/13/25 08:25 Rivaroxaban 2.5 Mg Tablet PO 2.5 mg On Hold: 03/13/25 18:52 Q12HR MANOLO Administration Rosuvastatin Calcium 40 mg 03/12/25 09:00 03/18/25 09:05 Rosuvastatin 20 Mg Tablet PO 40 mg DAILY MANOLO Administration Sacubitril/Valsartan 1 tab 03/13/25 21:00 03/18/25 20:36 Sacubitril/Valsartan 12-13 Mg Tablet PO 1 tab Q12HR MANOLO Administration Tamsulosin HCl 0.4 mg 03/15/25 21:00 03/18/25 20:36 Tamsulosin Hcl 0.4 Mg Capsule PO 0.4 mg Q12HR MANOLO Administration Radiology Results: ITS Impressions Cervical Spine CT 03/11/25 14:33 IMPRESSION: HEAD: 1. No acute intracranial findings. C-SPINE: 1. No acute fracture. 2. Incompletely seen dense probable pneumonia right side. Chest x-ray today demonstrates worse pneumonia left lung. Recommend short interval follow-up chest x-rays and/or CT chest to exclude underlying lesion. Head CT 03/11/25 14:33 IMPRESSION: HEAD: 1. No acute intracranial findings. C-SPINE: 1. No acute fracture. 2. Incompletely seen dense probable pneumonia right side. Chest x-ray today demonstrates worse pneumonia left lung. Recommend short interval follow-up chest x-rays and/or CT chest to exclude underlying lesion. Chest CT 03/18/25 10:26 IMPRESSION: 1. Obstructing left hilar soft tissue with abrupt cut off of left mainstem bronchus, resulting in complete collapse of the left lung and moderate left pleural effusion-highly concerning for obstructing central bronchogenic malignancy. 2: Mediastinal lymphadenopathy, suspicious for jake involvement. Recommend pulmonary consultation for bronchoscopy with biopsy. Consider PET/CT scan for staging and evaluation of right lung opacity and mediastinal lymphadenopathy. Consider thoracentesis of pleural effusion if clinically indicated for diagnostic purposes. 3: Right upper lobe pleural-based spiculated opacity, with additional patchy areas of consolidation and groundglass opacification in the right-May represent synchronous malignancy, post obstructive infection or inflammatory process. 4: Hypodense hepatic masses, most likely benign cysts. Chest X-Ray 03/19/25 07:59 IMPRESSION: 1. Unchanged near complete opacification of the left hemithorax which on prior CT this represent combination of atelectasis, pneumonia and pleural effusion potentially with concern for obstructing malignant left hilar mass on prior CT. 2. Unchanged peripheral spiculated opacity at the lateral right upper lung also concerning for malignancy. Labs Labs: Laboratory Results - last 24 hr 03/19/25 03/19/25 03:40 05:23 WBC 10.2 H RBC 4.06 L Hgb 11.4 L Hct 37.4 L MCV 92.1 MCH 28.1 MCHC 30.5 L RDW 16.4 H Plt Count 290 MPV 9.2 Immature Gran % (Auto) 0.6 H Neut % (Auto) 83.4 H Lymph % (Auto) 8.3 L [place] % (Auto) 6.0 Eos % (Auto) 1.1 Baso % (Auto) 0.6 Lymph # (Auto) 0.85 L [place] # (Auto) 0.6 Eos # (Auto) 0.1 Baso # (Auto) 0.1 Abs Immat Gran (auto) 0.06 H Absolute Neuts (auto) 8.5 H Absolute Nucleated RBC 0.000 Nucleated RBC % 0.0 PT 16.7 H INR 1.4 APTT 36.3 Sodium 138 Potassium 3.8 Chloride 114 H Carbon Dioxide 20 L Anion Gap 4 BUN 19 Creatinine 0.67 L Estim Creat Clear Calc 61 Estimated GFR > 60 Glucose 100 Calcium 8.3 L Magnesium 2.1 Total Bilirubin 0.5 AST 142 H ALT 197 H Alkaline Phosphatase 90 C-Reactive Protein 10.5 H NT-Pro-B Natriuret Pep 2080 H Total Protein 5.8 L Albumin 2.5 L
[2025-03-19] MEDS: ROSUVASTATIN 20 MG TABLET 40 MG PO (08:57)
[2025-03-19] MEDS: METOPROLOL TARTRATE 25 MG TABLET PO ×2 (08:57→22:36)
[2025-03-19] MEDS: guaiFENesin 12 HR 600 MG TABCR 1200 MG PO ×2 (08:57→22:36)
[2025-03-19] MEDS: TAMSULOSIN HCL 0.4 MG CAPSULE PO ×2 (08:58→22:36)
[2025-03-19] MEDS: CYANOCOBALAMIN 1,000 MCG TABLET 1000 MCG PO (08:58)
[2025-03-19] MEDS: SACUBITRIL/VALSARTAN 12-13 MG TABLET 1 TAB PO ×2 (08:58→22:36)
[2025-03-19 09:29] LABS: Procalcitonin 0.1 ng/mL
[2025-03-19] MEDS: DOXYCYCLINE IV 100 MG in SODIUM CHLORIDE 0.9% IV 100 ML IVPB ×2 (10:54→22:36)
[2025-03-19] MEDS: MEROPENEM 1 GM in SODIUM CHLORIDE 0.9% IV 100 ML 200 ML IVPB (11:41)
--- NOTE | 2025-03-19 12:10 | PCOTNOTE ---
Patient unavailable for therapy services, going down for a test.
[2025-03-19] MEDS: LACTATED RINGERS 1,000 ML 150 ML IV CONT (12:29)
--- NOTE | 2025-03-19 12:41 | P.PNIM_ITS ---
Assessment and Plan Assessment and Plan (1) Pneumonia: Code(s): J18.9 - Pneumonia, unspecified organism Status: Acute Assessment and Plan: Patient presents with SOB and cough and found to have sepsis with tachycardia, tachypnea, hypoxia, leukocytosis and lactic acidosis. CXR showing left perihilar consolidative process possibly representing pneumonia. Started on Rocephin and doxycycline for community acquired pneumonia but changed to meropenem for the possibility of drug resistant UTI. MRSA nasal swab negative. Blood culture no growth to date. Concern for malignancy given the weight loss and known right upper lobe lung mass for many years but has declined evaluation. CT of the chest shows increased right upper lobe mass now measuring 4.7 cm (0.9cm in 2022) with several smaller adjacent spiculated nodules concerning for malignancy. There is also left perihilar airspace opacity extending into the upper and lower lobes with air bronchograms. Spoke with patient and family in the room about findings and direction on how to proceed and patient wished to proceed with pulmonary consult and possible bronchoscopy. WBC normal now. On room air. Pulmonary consulted and appreciate their input. CXR showing complete white out of left lung for the past 2 days Spoke with patient about comfort measures but he wants the PNA and cough treated and does not want the RUL lung mass evaluated. BNP 2520. With low EF, consider pulm edema contributing to these findings but felt less likely and BP soft and he remains on room air so hold on Lasix. Continue Meropenem and Doxycycline. CT chest showed persistent lung collapse Continue CPT with vest therapy. Continue mucinex, nebulizer treatments and mucomyst. For Bronchoscopy today Discussed with Dr Eddy (2) Sepsis: Qualifiers: Acute respiratory failure type: with hypoxia Sepsis acute organ dysfunction status: with acute organ dysfunction Sepsis type: sepsis due to unspecified organism Severe sepsis acute organ dysfunction type: acute respiratory failure Severe sepsis shock status: without septic shock Qualified Code(s): A41.9 - Sepsis, unspecified organism; R65.20 - Severe sepsis without septic shock; J96.01 - Acute respiratory failure with hypoxia Code(s): A41.9 - Sepsis, unspecified organism Status: Acute Assessment and Plan: As above (3) Pulmonary mass: Code(s): R91.8 - Other nonspecific abnormal finding of lung field Status: Acute Assessment and Plan: CT chest in September 2022 showing RUL mass measuring 0.9cm. CT of the chest here shows increased RUL mass now measuring 4.7 cm with several smaller adjacent spiculated nodules concerning for malignancy. May also have left perihilar involvement as well resulting in collapse. Patient continues to decline evaluation of mass Treat PNA and provide symptomatic care (4) Urinary tract infection: Code(s): N39.0 - Urinary tract infection, site not specified Status: Acute Assessment and Plan: Urine and blood cultures were collected. Rocephin started for pneumonia but emiliana has hx of UTI with ESBL Klebsiella pneumoniae so abx was switched to meropenem (03/12). BCx NGTD UCx growing Klebsiella 50-100K colonies sensitive to meropenem and ertapenem but not rocephin, zosyn or levofloxicin Continue meropenem for 7 days (5) Atrial fibrillation with RVR: Code(s): I48.91 - Unspecified atrial fibrillation Status: Acute Assessment and Plan: The patient initially was AFib RVR in the emergency room but has auto converted. Echo showing EF 35-40%, diastolic dysfunction. Xarelto resumed but now on hold now for bronchoscopy today. Metoprolol was sta rted. He is in and out of AFib/RVR. On Metoprolol 25 bid Monitor on tele (6) CHF (congestive heart failure): Code(s): I50.9 - Heart failure, unspecified Status: Acute Assessment and Plan: Echo from outside facility in 2020 was read as EF of 63% and impaired diastolic relaxation grade 1. Echo here showing EF 35-40%. Continue metoprolol tartrate but convert to Toprol XL at discharge. Entresto added. Consider spironolactone. No empagliflozin given current urinary infection (7) CVA (cerebral vascular accident): Code(s): I63.9 - Cerebral infarction, unspecified Status: Acute Assessment and Plan: No residual issues. On Xarelto at home. Continue with Crestor. Holding Xarelto currently. PT/OT ordered (8) HLD (hyperlipidemia): Code(s): E78.5 - Hyperlipidemia, unspecified Status: Acute Assessment and Plan: Continue with Crestor (9) Benign prostatic hyperplasia without lower urinary tract symptoms: Code(s): N40.0 - Benign prostatic hyperplasia without lower urinary tract symptoms Status: Acute Assessment and Plan: Continue Flomax (10) Moderate protein-calorie malnutrition: Code(s): E44.0 - Moderate protein-calorie malnutrition Status: Acute Assessment and Plan: Moderate protein calorie malnutrition related to chronic loss of appetite as evidenced by intakes <75% needs >1 month; severe muscle wasting (temporalis, clavicles, shoulders) and severe fat loss (cheeks) Supplements ordered. Plan B12 Deficiency - on daily replacement DVT Prophylaxis - Xarelto hold, one dose of Lovenox tonight. OFr Bronchoscopy on Saturday Code status -DNR Disp - PT/OT Subjective Date/time seen: 03/19/25 12:41 Interval history: COmfortable at bedside awaiting bronchoscopy today Review of Systems Constitutional: Constitutional: Reports as per HPI and Reports no additional constitutional complaints Eyes: Eyes: Reports as per HPI and Reports no additional eye complaints ENT: Reports system reviewed and no additional complaints, except as documented and Reports Normal hearing present Cardiovascular: Cardiovascular: Reports no additional cardiovascular complaints Respiratory: Respiratory: Reports as per HPI and Reports no additional respiratory complaints Gastrointestinal: Gastrointestinal: Reports as per HPI and Reports no additional gastrointestinal complaints Musculoskeletal: Musculoskeletal: Reports no additional musculoskeletal complaints Integumentary/Breasts: Skin/Breast: Reports system reviewed and no additional complaints, except as docu Neurologic: Reports system reviewed and no additional complaints, except as documented and Reports Normal hearing present Psychiatric: Psychiatric: Reports no additional psychiatric complaints and Reports as per HPI Hematologic/Lymphatic: Hematologic/Lymphatic: Reports no additional hematologic/lymphatic complaints Allergic/Immunologic: Allergic/Immunologic: Reports no additional allergic/immunologic complaints Exam Narrative: AF 97.7 120/37 94 18 95% ra Gen - NARD lying right side down. Chest - bronchial BS in the left lung field with improved air exchange, nml RR CV - RRR with extra beats. Tele showing sinus rhythm with PVCs Abd -soft. Scaphoid. Positive bowel sounds. Ext -no right pedal edema. Left [id number] amputation. Psych - Nml mood and affect Skin - Warm and dry Const: General: cooperative, healthy appearing, comfortable, no acute distress, well developed, awake, Physically active, average body habitus and well nourished Nutritional Appearance: average body habitus and well nourished Orientation/consciousness: oriented to person, oriented to place, oriented to time and patient oriented x3 HENMT: Head: normal to inspection, No palpable skull fracture present, normocephalic, atraumatic and abrasion Ears: external ears normal Eyes: General: appearance normal, both eyes and all related structures Alignment and Position: alignment normal Periorbital: periorbital findings normal Eyelids: eyelids normal Neck: Neck: normal visual inspection, full ROM and no lymphadenopathy Chest: Chest palpation & inspection: normal inspection of the chest Resp: Effort & Inspection: normal respiratory effort Auscultation: wheezes Cardio: Palpation: normal PMI Rate: regular rate Rhythm: regular rhythm Heart sounds: S1 normal heart sound present and S2 normal heart sound present Peripheral pulses: Peripheral pulses 2+ throughout GI: Inspection: normal to inspection : General: Yes no CVA tenderness Back/Spine/Pelvis: Back: no CVA tenderness Skin: General skin exam: normal color Lesions: no lesions Rashes: no rashes Trauma: no lacerations or abrasions Wounds: no wounds Hair: normal Nails: normal Neuro: General: oriented to person, oriented to place, oriented to time and patient oriented x3 Cranial nerves: Yes Normal hearing present Cognition (Neuro): normal cognition Speech: normal speech Motor exam (neuro): 5/5 motor strength present throughout Sensory Exam: normal sensation Extrem: General: normal to inspection Right upper extremity: normal to inspection and shoulder/upper arm Left upper extremity: normal to inspection and shoulder/upper arm Right lower extremity: normal to inspection Left lower extremity: normal to inspection Other: Left [id number] amputation Psych: Appearance: grossly normal Mental Status: mental status grossly normal Speech and movement: Normal speech and movement present Affect: n ormal affect Attitude: cooperative Thought process: Normal thought process present Insight: Good insight present (Psych) Judgement: Good judgement present (Psych) Other: Fair judgment insight Objective Data Vital Signs Vital Signs: Vital Signs - 24 hr 03/18/25 14:00 03/18/25 14:41 03/18/25 14:48 Temperature Pulse Rate 69 69 73 Respiratory Rate 20 20 Blood Pressure Pulse Oximetry Oxygen Delivery Fraction of Inspired Oxygen 03/18/25 15:28 03/18/25 16:00 03/18/25 18:00 Temperature 98.3 F Pulse Rate 61 74 81 Respiratory Rate 24 H Blood Pressure 101/43 L Pulse Oximetry 94 Oxygen Delivery Fraction of Inspired Oxygen 03/18/25 20:00 03/18/25 20:00 03/18/25 20:16 Temperature 98.4 F Pulse Rate 77 77 77 Respiratory Rate 24 H 18 Blood Pressure 126/56 L Pulse Oximetry 95 93 Oxygen Delivery Room Air Fraction of Inspired Oxygen 21 03/18/25 20:16 03/18/25 20:30 03/18/25 20:35 Temperature Pulse Rate 77 80 80 Respiratory Rate 18 18 Blood Pressure Pulse Oximetry Oxygen Delivery Fraction of Inspired Oxygen 03/18/25 22:00 03/18/25 23:57 03/19/25 00:00 Temperature 98.0 F Pulse Rate 73 67 67 Respiratory Rate 22 H Blood Pressure 117/50 L Pulse Oximetry 96 Oxygen Delivery Fraction of Inspired Oxygen 03/19/25 02:00 03/19/25 03:00 03/19/25 03:15 Temperature Pulse Rate 70 71 74 Respiratory Rate 20 20 Blood Pressure Pulse Oximetry Oxygen Delivery Fraction of Inspired Oxygen 03/19/25 04:00 03/19/25 04:00 03/19/25 06:00 Temperature 97.8 F Pulse Rate 71 74 72 Respiratory Rate 22 H Blood Pressure 115/55 L Pulse Oximetry 94 Oxygen Delivery Fraction of Inspired Oxygen 03/19/25 07:58 03/19/25 08:00 03/19/25 08:45 Temperature 97.5 F L Pulse Rate 70 77 80 Respiratory Rate 22 H 20 Blood Pressure 121/49 L Pulse Oximetry 95 Oxygen Delivery Fraction of Inspired Oxygen 03/19/25 08:54 03/19/25 08:57 03/19/25 10:00 Temperature Pulse Rate 68 79 66 Respiratory Rate 18 Blood Pressure Pulse Oximetry Oxygen Delivery Fraction of Inspired Oxygen 03/19/25 11:53 03/19/25 12:00 03/19/25 12:02 Temperature Pulse Rate 70 73 67 Respiratory Rate 18 18 Blood Pressure Pulse Oximetry Oxygen Delivery Fraction of Inspired Oxygen 03/19/25 12:25 Temperature 97.8 F Pulse Rate 69 Respiratory Rate 24 H Blood Pressure 108/51 L Pulse Oximetry 94 Oxygen Delivery Room Air Fraction of Inspired Oxygen Intake/Output Intake/Output: Intake & Output 03/16/25 03/17/25 03/18/25 03/19/25 23:59 23:59 23:59 23:59 Intake Total 1380 1740 2362 Output Total 650 800 650 550 Balance 367 117 7039 -550 Meds/Results Medications: Active Medications Generic Name Dose Route Start Last Admin Trade Name Gay PRN Reason Stop Dose Admin Acetaminophen 650 mg 03/12/25 23:24 03/12/25 23:29 Acetaminophen 325 Mg Tablet PO 650 mg Q6H PRN Administration Mild Pain (1-3) or Fever Cyanocobalamin 1,000 mcg 03/14/25 09:00 03/19/25 08:58 Cyanocobalamin 1,000 Mcg Tablet PO 1,000 mcg QAM MANOLO Administration Guaifenesin 1,200 mg 03/15/25 11:30 03/19/25 08:57 Guaifenesin 12 Hr 600 Mg Tabcr PO 1,200 mg Q12HR MANOLO Administration Meropenem 1 gm/ Sodium 100 mls @ 200 mls/hr 03/12/25 00:00 03/19/25 11:41 Chloride IVPB 03/19/25 23:59 200 mls/hr Q12H MANOLO Administration Doxycycline Hyclate 100 mg/ 100 mls @ 100 mls/hr 03/17/25 21:00 03/19/25 10:54 Sodium Chloride IVPB 03/19/25 23:59 100 mls/hr Q12H MANOLO Administration Lactated Ringer's 1,000 mls @ 150 mls/hr 03/19/25 11:40 03/19/25 12:29 Lr - Lactated Ringers Iv IV CONT 150 mls/hr .Q6H40M MANOLO Administration Ipratropium [place] 0.5 mg 03/12/25 02:00 03/19/25 11:52 Ipratropium Br 0.02% Inh Soln 0.5 Mg/2.5 Ml Vial INHALATION 0.5 mg Q6HRT MANOLO Administration Metoprolol Tartrate 25 mg 03/16/25 21:00 03/19/25 08:57 Metoprolol Tartrate 25 Mg Tablet PO 25 mg Q12HR MANOLO Administration Rivaroxaban 2.5 mg 03/11/25 23:20 03/13/25 08:25 Rivaroxaban 2.5 Mg Tablet PO 2.5 mg On Hold: 03/13/25 18:52 Q12HR MANOLO Administration Rosuvastatin Calcium 40 mg 03/12/25 09:00 03/19/25 08:57 Rosuvastatin 20 Mg Tablet PO 40 mg DAILY MANOLO Administration Sacubitril/Valsartan 1 tab 03/13/25 21:00 03/19/25 08:58 Sacubitril/Valsartan 12-13 Mg Tablet PO 1 tab Q12HR MANOLO Administration Tamsulosin HCl 0.4 mg 03/15/25 21:00 03/19/25 08:58 Tamsulosin Hcl 0.4 Mg Capsule PO 0.4 mg Q12HR MANOLO Administration Radiology Results: ITS Impressions Cervical Spine CT 03/11/25 14:33 IMPRESSION: HEAD: 1. No acute intracranial findings. C-SPINE: 1. No acute fracture. 2. Incompletely seen dense probable pneumonia right side. Chest x-ray today demonstrates worse pneumonia left lung. Recommend short interval follow-up chest x-rays and/or CT chest to exclude underlying lesion. Head CT 03/11/25 14:33 IMPRESSION: HEAD: 1. No acute intracranial findings. C-SPINE: 1. No acute fracture. 2. Incompletely seen dense probable pneumonia right side. Chest x-ray today demonstrates worse pneumonia left lung. Recommend short interval follow-up chest x-rays and/or CT chest to exclude underlying lesion. Chest CT 03/18/25 10:26 IMPRESSION: 1. Obstructing left hilar soft tissue with abrupt cut off of left mainstem bronchus, resulting in complete collapse of the left lung and moderate left pleural effusion-highly concerning for obstructing central bronchogenic malignancy. 2: Mediastinal lymphadenopathy, suspicious for jake involvement. Recommend pulmonary consultation for bronchoscopy with biopsy. Consider PET/CT scan for staging and evaluation of right lung opacity and mediastinal lymphadenopathy. Consider thoracentesis of pleural effusion if clinically indicated for diagnostic purposes. 3: Right upper lobe pleural-based spiculated opacity, with additional patchy areas of consolidation and groundglass opacification in the right-May represent synchronous malignancy, post obstructive infection or inflammatory process. 4: Hypodense hepatic masses, most likely benign cysts. Chest X-Ray 03/19/25 07:59 IMPRESSION: 1. Unchanged near complete opacification of the left hemithorax which on prior CT this represent combination of atelectasis, pneumonia and pleural effusion potentially with concern for obstructing malignant left hilar mass on prior CT. 2. Unchanged peripheral spiculated opacity at the lateral right upper lung also concerning for malignancy. Labs Labs: Laboratory Results - last 24 hr 03/19/25 03/19/25 03:40 05:23 WBC 10.2 H RBC 4.06 L Hgb 11.4 L Hct 37.4 L MCV 92.1 MCH 28.1 MCHC 30.5 L RDW 16.4 H Plt Count 290 MPV 9.2 Immature Gran % (Auto) 0.6 H Neut % (Auto) 83.4 H Lymph % (Auto) 8.3 L [place] % (Auto) 6.0 Eos % (Auto) 1.1 Baso % (Auto) 0.6 Lymph # (Auto) 0.85 L [place] # (Auto) 0.6 Eos # (Auto) 0.1 Baso # (Auto) 0.1 Abs Immat Gran (auto) 0.06 H Absolute Neuts (auto) 8.5 H Absolute Nucleated RBC 0.000 Nucleated RBC % 0.0 PT 16.7 H INR 1.4 APTT 36.3 Sodium 138 Potassium 3.8 Chloride 114 H Carbon Dioxide 20 L Anion Gap 4 BUN 19 Creatinine 0.67 L Estim Creat Clear Calc 61 Estimated GFR > 60 Glucose 100 Calcium 8.3 L Magnesium 2.1 Total Bilirubin 0.5 AST 142 H ALT 197 H Alkaline Phosphatase 90 C-Reactive Protein 10.5 H NT-Pro-B Natriuret Pep 2080 H Total Protein 5.8 L Albumin 2.5 L Procalcitonin 0.1 Quality VTE Prophylaxis VTE prophylaxis: pharmacologic ordered
--- NOTE | 2025-03-19 13:04 | SUR.PREOP ---
I spoke with Wade and the patient in regards to a procedural delay. RN states he will let the family know.
--- NOTE | 2025-03-19 14:11 | WPDANESEPPF ---
Anes - Initial Pre Proc Eval Procedure: Operation Date: 03/19/25 12:45 Proposed Procedures p Flexible Bronchoscopy - Darius Eddy MD Date/Time: 03/19/25 14:11 Surgeon: Bryan Lazaro MD Pre Op Diagnosis: Acute Respiratory Failure W Hypoxia/Atrial Fib w R Patient Data Age: 79 Gender: M Height: 1.83 m Weight: 55.2 kg Last Vital Signs Temp 97.8 F 03/19/25 12:25 Pulse 69 03/19/25 12:25 Resp 24 H 03/19/25 12:25 BP 108/51 L 03/19/25 12:25 Pulse Ox 94 03/19/25 12:25 O2 Del Method Room Air 03/19/25 12:25 O2 Flow Rate 1 03/14/25 20:58 FiO2 21 03/18/25 20:16 Allergies Allergy/AdvReac Type Severity Reaction Status Date / Time Aminoglycosides Allergy Severe RASH Verified 03/11/25 23:35 bacitracin Allergy Severe Rash Verified 03/11/25 23:35 neomycin Allergy Severe RASH Verified 03/11/25 23:35 polymyxin B Allergy Severe Rash Verified 03/11/25 23:35 Home Medications ?Medication ?Instructions ?Recorded ?Confirmed ?Type tamsulosin 0.4 mg capsule 0.4 mg PO BID #60 caps 06/07/22 03/11/25 Rx rivaroxaban 2.5 mg tablet 2.5 mg PO BID 04/21/23 03/11/25 History ciprofloxacin HCl 500 mg tablet 500 mg PO Q12H #60 tabs 07/18/23 03/11/25 Rx doxycycline hyclate 100 mg tablet 100 mg PO Q12H #60 tabs 07/18/23 03/11/25 Rx doxycycline hyclate 100 mg capsule 100 mg PO Q12H Bladder cancer 03/11/25 03/11/25 History rosuvastatin 40 mg tablet 40 mg PO DAILY Bladder cancer 03/11/25 03/11/25 History Laboratory Tests 03/19/25 03/19/25 03:40 05:23 WBC 10.2 H K/mm3 (4.5-10.0) RBC 4.06 L M/mm3 (4.6-6.20) Hgb 11.4 L g/dL (14.0-18.0) Hct 37.4 L % (42.0-52.0) MCV 92.1 fl (80-100) MCH 28.1 pg (26-34) MCHC 30.5 L g/dl (32-36) RDW 16.4 H % (11.5-14.5) Plt Count 290 k/mm3 (150-375) MPV 9.2 fl (7.4-10.4) Immature Gran % (Auto) 0.6 H % (0-0.5) Neut % (Auto) 83.4 H % (45.5-73.1) Lymph % (Auto) 8.3 L % (18.3-44.2) [place] % (Auto) 6.0 % (2.6-8.5) Eos % (Auto) 1.1 % (0-4.4) Baso % (Auto) 0.6 % (0.2-1.2) Lymph # (Auto) 0.85 L K/mm3 (0.9-3.2) [place] # (Auto) 0.6 K/mm3 (0.1-0.6) Eos # (Auto) 0.1 K/mm3 (0-0.3) Baso # (Auto) 0.1 K/mm3 (0.0-0.1) Abs Immat Gran (auto) 0.06 H K/mm3 (0.00-0.031) Absolute Neuts (auto) 8.5 H K/mm3 (1.3-6.7) Absolute Nucleated RBC 0.000 K/mm3 (0.0-0.012) Nucleated RBC % 0.0 % (0.0-0.2) PT 16.7 H Seconds (11.1-14.7) INR 1.4 APTT 36.3 Seconds (22.3-36.8) Sodium 138 mmol/L (137-145) Potassium 3.8 mmol/L (3.4-5.0) Chloride 114 H mmol/L (98-107) Carbon Dioxide 20 L mmol/L (22-30) Anion Gap 4 mmol/L (4-12) BUN 19 mg/dL (9-20) Creatinine 0.67 L mg/dL (0.7-1.3) Estim Creat Clear Calc 61 ml/min Estimated GFR > 60 (59 - ) Glucose 100 mg/dL (65-110) Calcium 8.3 L mg/dL (8.4-10.2) Magnesium 2.1 mg/dL (1.6-2.3) Total Bilirubin 0.5 mg/dL (0.2-1.3) AST 142 H U/L (17-59) ALT 197 H U/L (6-50) Alkaline Phosphatase 90 U/L (38-126) C-Reactive Protein 10.5 H mg/dL (<1.0) NT-Pro-B Natriuret Pep 2080 H pg/mL (19.9-100) Total Protein 5.8 L g/dL (6.3-8.2) Albumin 2.5 L g/dL (3.5-5.1) Procalcitonin 0.1 ng/mL Patient hx anesthesia problems: none Family hx anesthesia problems: none Results Review: All pre-operative results and documents have been reviewed as part of the pre-operative evaluation. FOR[facility]LY [facility] Past Medical History Medical History Pneumonia Mixed hyperlipidemia Urinary tract infection S/P angiogram of extremity C. difficile colitis ESBL (extended spectrum beta-lactamase) producing bacteria infection Aspiration into airway History of infection due to ESBL Klebsiella oxytoca Sepsis History of stroke with current residual effects CVA (cerebral vascular accident) Cough Acute CVA (cerebrovascular accident) Basal cell carcinoma (BCC) on face removed in 2011 Foot fracture, left DDD (degenerative disc disease) Cyst of right kidney Arthritis Enlarged prostate Renal disease HTN (hypertension) Hypercholesteremia CAD (coronary artery disease) Farsightedness Left ear hearing loss CHF (congestive heart failure) Myocardial infarction Surgical History Surgical History History of facial surgery To remove a basal cell carcinoma. 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 Social History Social History Social History: Patient lives at home with his , Loan, whom he designates as his surrogate MDM. His PCP is Dr. 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 Code status: DNR/DNI (per patient request) Smoking packs per day: 0.5 Smoking cigarettes per day: 10.0 Years smoked: 50 Smoking pack-years: 25.00 Smoking status: Current every day smoker Tobacco type: cigarettes Second hand tobacco smoke exposure: Yes Additional smoking assessment comments: pt states he is not interested in quitting right now Alcohol intake: former Substance use: never Substance use type: does not use Lack of Transportation: No Lack of Food: Never True Current Housing: I Have Housing Concerned About Future Housing: No Difficulty Paying Gas/Electric Bills: No Difficulty Paying for Meds: No Currently Unemployed: No Education: Bachelor's Degree Difficulty w/ Childcare or Family Care: No Living arrangements: with family Additional living arrangements comments: Gender identity (if verbalized by the patient): Male Sexual Orientation (if Verbalized by the Patient): Straight or Heterosexual Spiritual care concerns: No Agree to blood products: Yes Anes - Eval Final PreProcedure Day of Procedure 03/19/25 14:11 Patient weight: cachectic and thin Lungs: normal air movement and decreased breath sounds Airway: Mallampati scale class II and special considerations (Edentulous. ) Neurological: alert and oriented Last oral intake: >/= 8 hours ASA classification: IV Emergent: no Anesthetic plan: proceed Anesthesia type and monitoring: general ETT and standard monitoring Results Review: All pre-operative results and documents have been reviewed as part of the pre-operative evaluation. Complicated hx, pt w resp status that is stable, suspect mass vs more likely mucus plug w pneumonia, discussed w Dr Eddy. EF 35-40%, stable status at this time. Informed Consent: The patient's anesthetic plan and its attendant risks and benefits were discussed with the patient/family/POA. Questions were solicited and answers provided to the satisfaction of the patient/family/POA.
--- NOTE | 2025-03-19 14:57 | PCOTNOTE ---
Patient still has not returned from a procedure, Patient unable to be seen this date.
[2025-03-19] MEDS: LIDOCAINE 2% LOCAL INJ 20 ML VIAL 4 ML INFILTRATE (15:02)
--- NOTE | 2025-03-19 15:03 | S_PTH ---
PATIENT: Porfirio Pabon LOC: [id number] U#:[id number] AGE/SX: 79/M ROOM: 345 RE03/11/[address]: Dominique Cody MD : 1945 BED: 01 DIS: 03/20/2025 SPEC #: [id number] RECD: 03/22/25 07:26 STATUS: JADE REMichelle #: [id number] DIANDRA: 03/19/25 15:[address]: Darius Eddy DEPT: [facility] Surgical RECD BY: Rhoda Peres ENTERED: 03/22/25 07:27 SP TYPE: Surgical OTHR DR: MD Bryan Ivey MD Onyema Nnanna, MD Tissues: A - Lung Biopsy B - Ruth Tip C - Bronchial Brushing D - Bronchial Brushing Procedures: P63 Monge Keratin TTF Unstained Slides Hematoxylin and Eosin Stain PAP Stain Gross and Microscopic Level 4 S 100 Vimentin CK 5 JELLY-3
[2025-03-19] MEDS: SODIUM CHLORIDE 0.9% IV 500 ML BAG IRRIGATION (15:04)
--- NOTE | 2025-03-19 15:43 | SUR.PHASEII ---
Called Dr Eddy with X-Ray completion he reviewed it and said it was OK to send him to his room after post -op
[2025-03-20] VITALS (14 sets, daily range): BP systolic 102–131; BP diastolic 45–56; PULSE 65–88; RESP 15–20; TEMP 36.3–37.1; O2SAT 95–96
[2025-03-20] MEDS: IPRATROPIUM BR 0.02% INH SOLN 0.5 MG/2.5 ML VIAL INHALATION ×3 (01:18→14:38)
[2025-03-20 03:36] LABS: Hematocrit 35.9 % (42.0-52.0); Hemoglobin 11.1 g/dL (14.0-18.0); Immature Granulocyte Percent A 0.7 % (0-0.5); Lymphocytes Absolute Auto 0.54 K/mm3 (0.9-3.2); Mean Corpuscular HGB Conc 30.9 g/dl (32-36); Mean Corpuscular Hemoglobin 28.1 pg (26-34); Mean Corpuscular Volume 90.9 fl (80-100); Nucleated Red Blood Cells Absolute Auto 0.000 K/mm3 (0.0-0.012); Nucleated Red Blood Cells Perc 0.0 % (0.0-0.2); Platelet Count Result 285 k/mm3 (150-375); Red Blood Count 3.95 M/mm3 (4.6-6.20); White Blood Count 10.0 K/mm3 (4.5-10.0)
[2025-03-20 03:46] LABS: Alanine Aminotransferase 135 U/L (6-50); Albumin Level 2.4 g/dL (3.5-5.1); Alkaline Phosphatase 89 U/L (38-126); Anion Gap 3 mmol/L (4-12); Aspartate Amino Transferase 68 U/L (17-59); Bilirubin,Total 0.4 mg/dL (0.2-1.3); Blood Urea Nitrogen 20 mg/dL (9-20); Calcium 8.2 mg/dL (8.4-10.2); Carbon Dioxide 23 mmol/L (22-30); Chloride 113 mmol/L (98-107); Estimated CRCL calculation 56 ml/min; Estimated Glomerular Filt Rate > 60; Glucose 97 mg/dL (65-110); Magnesium 1.9 mg/dL (1.6-2.3); Potassium 3.8 mmol/L (3.4-5.0); Sodium 139 mmol/L (137-145); Total Protein 5.6 g/dL (6.3-8.2)
--- NOTE | 2025-03-20 08:50 | PM.IMPN2 ---
Assessment and Plan Assessment and Plan (1) Pulmonary mass: Code(s): R91.8 - Other nonspecific abnormal finding of lung field Status: Acute (2) Pneumonia: Qualifiers: Laterality: left Lung location: lower lobe of lung Pneumonia type: due to unspecified organism Qualified Code(s): J18.9 - Pneumonia, unspecified organism Code(s): J18.9 - Pneumonia, unspecified organism Status: Acute (3) Urinary tract infection: Code(s): N39.0 - Urinary tract infection, site not specified Status: Acute (4) Moderate protein-calorie malnutrition: Code(s): E44.0 - Moderate protein-calorie malnutrition Status: Acute Plan Pending hospice consultation. Status post meropenem Continue guaifenesin, PEP therapy, chest physiotherapy ipratropium nebulization. Normal sinus rhythm with trigeminy. Replace serum potassium and magnesium. Continue telemetry unless hospice is confirmed. Patient wishes to be DNR. Dietary supplements. Transfer to medical floor with telemetry Time Spent With Patient Time with patient: 25 - 35 minutes Subjective Date/time seen: 03/20/25 08:50 Interval history: Patient seen at bedside. He rest comfortably, has no complaints and denies any shortness of breath. Denies cough. He tells me he is still amenable to hospice consultation. Review of Systems Review of Systems: All systems reviewed & are unremarkable except as noted in HPI and below (Subjective) Exam Const: General: comfortable and no acute distress Other: Cachectic Eyes: Pupils: Equal, round and reactive pupils present Neck: Neck: supple Resp: Other: Left lung diminished to auscultation Cardio: Rate: regular rate Rhythm: regular rhythm GI: GI Palp: Yes Soft to palpation Extrem: General: no edema Other: Left AKA Objective Data Vital Signs Vital Signs: Vital Signs - 24 hr 03/19/25 08:54 03/19/25 08:57 03/19/25 10:00 Temperature Pulse Rate 68 79 66 Respiratory Rate 18 Blood Pressure Pulse Oximetry Oxygen Delivery Oxygen Flow Rate 03/19/25 11:53 03/19/25 12:00 03/19/25 12:02 Temperature Pulse Rate 70 73 67 Respiratory Rate 18 18 Blood Pressure Pulse Oximetry Oxygen Delivery Oxygen Flow Rate 03/19/25 12:25 03/19/25 15:07 03/19/25 15:17 Temperature 97.8 F 98.7 F Pulse Rate 69 74 76 Respiratory Rate 24 H 23 H 27 H Blood Pressure 108/51 L 117/53 L 108/60 Pulse Oximetry 94 100 98 Oxygen Delivery Room Air Simple Face Mask Simple Face Mask Oxygen Flow Rate 6 6 03/19/25 15:27 03/19/25 15:37 03/19/25 15:47 Temperature 97.1 F L Pulse Rate 75 72 71 Respiratory Rate 23 H 25 H 28 H Blood Pressure 114/74 102/52 L 118/62 Pulse Oximetry 100 97 97 Oxygen Delivery Simple Face Mask Room Air Room Air Oxygen Flow Rate 6 03/19/25 15:57 03/19/25 16:00 03/19/25 16:00 Temperature 97.4 F L Pulse Rate 72 76 80 Respiratory Rate 31 H 17 Blood Pressure 105/52 L 130/71 Pulse Oximetry 95 94 Oxygen Delivery Room Air Oxygen Flow Rate 03/19/25 16:07 03/19/25 19:47 03/19/25 20:00 Temperature 97.6 F Pulse Rate 70 90 95 Respiratory Rate 28 H 20 20 Blood Pressure 114/47 L Pulse Oximetry 94 Oxygen Delivery Room Air Oxygen Flow Rate 03/19/25 20:00 03/19/25 20:00 03/19/25 22:00 Temperature 98.1 F Pulse Rate 88 86 84 Respiratory Rate 20 Blood Pressure 120/68 Pulse Oximetry 97 Oxygen Delivery Oxygen Flow Rate 03/19/25 22:36 03/20/25 00:00 03/20/25 00:00 Temperature 98.7 F Pulse Rate 88 66 65 Respiratory Rate 15 Blood Pressure 104/45 L Pulse Oximetry 96 Oxygen Delivery Oxygen Flow Rate 03/20/25 01:19 03/20/25 01:28 03/20/25 02:00 Temperature Pulse Rate 67 66 69 Respiratory Rate 20 20 Blood Pressure Pulse Oximetry Oxygen Delivery Oxygen Flow Rate 03/20/25 04:00 03/20/25 04:00 03/20/25 06:00 Temperature 98.2 F Pulse Rate 72 69 71 Respiratory Rate 16 Blood Pressure 102/48 L Pulse Oximetry 95 Oxygen Delivery Oxygen Flow Rate 03/20/25 07:19 03/20/25 07:26 03/20/25 08:00 Temperature 97.4 F L Pulse Rate 88 87 76 Respiratory Rate 20 20 19 Blood Pressure 131/56 L Pulse Oximetry 95 Oxygen Delivery Oxygen Flow Rate Intake/Output Intake/Output: Intake & Output 03/17/25 03/18/25 03/19/25 03/20/25 23:59 23:59 23:59 23:59 Intake Total 1740 2362 390 400 Output Total 674 908 4630 550 Balance 940 1712 -610 -150 Meds/Results Medications: Active Medications Generic Name Dose Route Start Last Admin Trade Name Vuq PRN Reason Stop Dose Admin Acetaminophen 650 mg 03/12/25 23:24 03/12/25 23:29 Acetaminophen 325 Mg Tablet PO 650 mg Q6H PRN Administration Mild Pain (1-3) or Fever Cyanocobalamin 1,000 mcg 03/14/25 09:00 03/19/25 08:58 Cyanocobalamin 1,000 Mcg Tablet PO 1,000 mcg QAM MANOLO Administration Guaifenesin 1,200 mg 03/15/25 11:30 03/19/25 22:36 Guaifenesin 12 Hr 600 Mg Tabcr PO 1,200 mg Q12HR MANOLO Administration Ipratropium [place] 0.5 mg 03/12/25 02:00 03/20/25 07:15 Ipratropium Br 0.02% Inh Soln 0.5 Mg/2.5 Ml Vial INHALATION 0.5 mg Q6HRT MANOLO Administration Metoprolol Tartrate 25 mg 03/16/25 21:00 03/19/25 22:36 Metoprolol Tartrate 25 Mg Tablet PO 25 mg Q12HR MANOLO Administration Rosuvastatin Calcium 40 mg 03/12/25 09:00 03/19/25 08:57 Rosuvastatin 20 Mg Tablet PO 40 mg DAILY MANOLO Administration Sacubitril/Valsartan 1 tab 03/13/25 21:00 03/19/25 22:36 Sacubitril/Valsartan 12-13 Mg Tablet PO 1 tab Q12HR MANOLO Administration Tamsulosin HCl 0.4 mg 03/15/25 21:00 03/19/25 22:36 Tamsulosin Hcl 0.4 Mg Capsule PO 0.4 mg Q12HR MANOLO Administration Radiology Results: ITS Impressions Cervical Spine CT 03/11/25 14:33 IMPRESSION: HEAD: 1. No acute intracranial findings. C-SPINE: 1. No acute fracture. 2. Incompletely seen dense probable pneumonia right side. Chest x-ray today demonstrates worse pneumonia left lung. Recommend short interval follow-up chest x-rays and/or CT chest to exclude underlying lesion. Head CT 03/11/25 14:33 IMPRESSION: HEAD: 1. No acute intracranial findings. C-SPINE: 1. No acute fracture. 2. Incompletely seen dense probable pneumonia right side. Chest x-ray today demonstrates worse pneumonia left lung. Recommend short interval follow-up chest x-rays and/or CT chest to exclude underlying lesion. Chest CT 03/18/25 10:26 IMPRESSION: 1. Obstructing left hilar soft tissue with abrupt cut off of left mainstem bronchus, resulting in complete collapse of the left lung and moderate left pleural effusion-highly concerning for obstructing central bronchogenic malignancy. 2: Mediastinal lymphadenopathy, suspicious for jake involvement. Recommend pulmonary consultation for bronchoscopy with biopsy. Consider PET/CT scan for staging and evaluation of right lung opacity and mediastinal lymphadenopathy. Consider thoracentesis of pleural effusion if clinically indicated for diagnostic purposes. 3: Right upper lobe pleural-based spiculated opacity, with additional patchy areas of consolidation and groundglass opacification in the right-May represent synchronous malignancy, post obstructive infection or inflammatory process. 4: Hypodense hepatic masses, most likely benign cysts. Chest X-Ray 03/19/25 15:30 Impression: 1: Developing right-sided airspace disease which may represent edema versus pneumonia. Otherwise, no significant change. Labs Labs: Laboratory Results - last 24 hr 03/19/25 03/20/25 03:40 03:31 WBC 10.0 RBC 3.95 L Hgb 11.1 L Hct 35.9 L MCV 90.9 MCH 28.1 MCHC 30.9 L RDW 16.4 H Plt Count 285 MPV 9.2 Immature Gran % (Auto) 0.7 H Neut % (Auto) 87.2 H Lymph % (Auto) 5.4 L [place] % (Auto) 5.4 Eos % (Auto) 0.9 Baso % (Auto) 0.4 Lymph # (Auto) 0.54 L [place] # (Auto) 0.5 Eos # (Auto) 0.1 Baso # (Auto) 0.0 Abs Immat Gran (auto) 0.07 H Absolute Neuts (auto) 8.7 H Absolute Nucleated RBC 0.000 Nucleated RBC % 0.0 Sodium 139 Potassium 3.8 Chloride 113 H Carbon Dioxide 23 Anion Gap 3 L BUN 20 Creatinine 0.74 Estim Creat Clear Calc 56 Estimated GFR > 60 Glucose 97 Calcium 8.2 L Magnesium 1.9 Total Bilirubin 0.4 AST 68 H ALT 135 H Alkaline Phosphatase 89 Total Protein 5.6 L Albumin 2.4 L Procalcitonin 0.1
[2025-03-20] MEDS: MAGNESIUM SULF 1 GM/D5W 100 ML 1 GM/100 ML BAG IVPB (09:16)
[2025-03-20] MEDS: ROSUVASTATIN 20 MG TABLET 40 MG PO (09:18)
[2025-03-20] MEDS: POTASSIUM CHLORIDE 20 MEQ ER TABLET PO (09:18)
[2025-03-20] MEDS: CYANOCOBALAMIN 1,000 MCG TABLET 1000 MCG PO (09:19)
[2025-03-20] MEDS: SACUBITRIL/VALSARTAN 12-13 MG TABLET 1 TAB PO (09:19)
[2025-03-20] MEDS: TAMSULOSIN HCL 0.4 MG CAPSULE PO (09:19)
[2025-03-20] MEDS: guaiFENesin 12 HR 600 MG TABCR 1200 MG PO (09:19)
[2025-03-20] MEDS: METOPROLOL TARTRATE 25 MG TABLET PO (09:19)
--- NOTE | 2025-03-25 18:58 | PM.DS ---
DS: Admitting Diagnosis Discharge Date 03/20/25 Admitting Diagnosis Pneumonia DS: Discharge Diagnosis Discharge Diagnosis (1) Pneumonia: Qualifiers: Laterality: left Lung location: lower lobe of lung Pneumonia type: due to unspecified organism Qualified Code(s): J18.9 - Pneumonia, unspecified organism Code(s): J18.9 - Pneumonia, unspecified organism Status: Acute DS: Summary Hospital Course Hospital Course: Patient presents with pneumonia. Sepsis. Pulmonary mass. UTI. AFib with RVR. CHF. History of CVA, hyperlipidemia, BPH, protein calorie malnutrition, B12 deficiency. Patient decided to return home with hospice. Discharged in stable condition on 03/20/2025. Discussions held with family members at the bedside, no further questions or concerns. The patient was DNR during this time. Time Spent with Patient Time attestation: Total time spent providing and/or coordinating discharge services: Time spent: Greater than 30 minutes Exam Const: General: comfortable and no acute distress Other: Cachectic Eyes: Pupils: Equal, round and reactive pupils present Neck: Neck: supple Resp: Other: Left lung diminished to auscultation Cardio: Rate: regular rate Rhythm: regular rhythm GI: GI Palp: Yes Soft to palpation Extrem: General: no edema Other: Left AKA DS: Data Data Completed and Pending Completed studies during hospitalization: Pending at discharge 03/19/25 15:03 Surgical [PTH] Routine Discharge Plan Discharge Attending physician on discharge: aleisha Consulting providers: David Tam; Darius Eddy; Vinny Torres; Huang Walsh; Sakshi Cervantes; Lucas Stewart; Ty Velez; Juan M Erwin Terry J.; Horacio Kellogg Discharging Clinician: aleisha Patient Disposition: Hospice - Home Activity: july shower Diet: as tolerated Patient Instructions: Antibiotic Form, Acute Respiratory Failure (GEN) Patient Language: Nigerian Stand Alone Forms: General Discharge Information Follow-up/Referrals: Som Kenny MD [Primary Care Provider, Family Practice] Discharge Medications: New guaifenesin 600 mg tablet extended release 12hr 600 mg PO BID PRN (Reason: congestion) Qty: 60 0RF tiotropium bromide [Spiriva with HandiHaler] 18 mcg capsule, w/inhalation device 1 cap inhalation DAILY Qty: 30 0RF Rx Instructions: puncture 1 cap using device; one dose = 2 inhalations Discontinued ciprofloxacin HCl 500 mg tablet 500 mg PO Q12H Qty: 60 0RF doxycycline hyclate 100 mg tablet 100 mg PO Q12H Qty: 60 0RF tamsulosin 0.4 mg capsule 0.4 mg PO BID Qty: 60 0RF doxycycline hyclate 100 mg capsule 100 mg PO Q12H rosuvastatin 40 mg tablet 40 mg PO DAILY rivaroxaban 2.5 mg Tablet 2.5 mg PO BID Date of admission: 03/11/25 15:33 Primary Care Provider: Som Kenny Admitting Provider: Meño Lazaro Attending physician on admission: Dominique Cody Condition: Improved Hospitalist MIPS Heart Failure (Exclusion) Patient has history of Heart Transplant or Left Ventricular Assistive Device?: No IF YES, STOP HERE Heart Failure (Qualifier) Patient has current or prior documentation of LVEF less than or equal to 40%, or mod/servere depressed LVSF?: Yes IF NO, STOP HERE If Yes, Heart Failure (Qualifier) Patient was prescribed or already taking an Angiotensin-Converting Enzyme (MARIANA) Inhibitor, or Antiotensin Receptor Oralia (ARB): No Patient was prescribed or already taking bisoprolol, carvedilol, or sustained release metoprolol succinate: No If Medications not prescribed/taking Reason patient not prescribed/taking MARIANA or ARB: Patient reasons: pt declined or other pt reason Reason patient not prescribed/taking bisoprolol, carvedilol, or sustained realease metoprolol succinate: Patient reasons: pt declined or other pt reason
== END 2025-03-20 16:05 | disposition hospice, home (50) | DRG 853 ==
LOC: ANHED 12:08 → ANHIMU 16:39 → ANH3MED 03-20 15:24 → ANHIMU 03-22 09:48
PROVIDERS: Internal Medicine; Internal Medicine Pulmonary Disease; Admitting Provider Internal Medicine; Emergency Provider Physician Assistant; PCP Family Medicine; Visit Provider General Practice
PROC: 0BJ08ZZ Inspection of Tracheobronchial Tree, Via Natural or Artificial Opening Endoscopic (ICD-10-PCS; CPT 31622; principal; 2025-03-19 12:45)
DX: A41.9 Sepsis, unspecified organism (principal); J18.9 Pneumonia, unspecified organism; E44.0 Moderate protein-calorie malnutrition; Z68.1 Body mass index [BMI] 19.9 or less, adult; N39.0 Urinary tract infection, site not specified; I50.32 Chronic diastolic (congestive) heart failure; C34.90 Malignant neoplasm of unspecified part of unspecified bronchus or lung; Z66 Do not resuscitate; B96.1 Klebsiella pneumoniae [K. pneumoniae] as the cause of diseases classified elsewhere; E53.8 Deficiency of other specified B group vitamins; E78.2 Mixed hyperlipidemia; F17.210 Nicotine dependence, cigarettes, uncomplicated; I48.91 Unspecified atrial fibrillation; I25.10 Atherosclerotic heart disease of native coronary artery without angina pectoris; I25.2 Old myocardial infarction; I11.0 Hypertensive heart disease with heart failure; J43.2 Centrilobular emphysema; N40.0 Benign prostatic hyperplasia without lower urinary tract symptoms; R62.7 Adult failure to thrive; Z20.822 Contact with and (suspected) exposure to COVID-19; Z79.01 Long term (current) use of anticoagulants; Z85.828 Personal history of other malignant neoplasm of skin; Z89.612 Acquired absence of left leg above knee; Z95.1 Presence of aortocoronary bypass graft; Z79.02 Long term (current) use of antithrombotics/antiplatelets; Z85.46 Personal history of malignant neoplasm of prostate; Z86.73 Personal history of transient ischemic attack (TIA), and cerebral infarction without residual deficits
CPT/HCPCS: 0202U; 36415; 70450; 71045; 71046; 71250; 71260; 72125; 80048; 80053; 80069; 81001; 82103; 82104; 82607; 82746; 82948; 83605; 83735; 83880; 84145; 85025; 85027; 85610; 85730; 86140; 86738; 87040; 87070; 87077; 87086; 87186; 87449; 87637; 87641; 87899; 88160; 88305; 88342; 93005; 93306; 94640; 96365; 96367; 97162; 97166; 99285; A9270; J0283; J0616; J0696; J1650; J2003; J2004; J2185; J3420; J3475; J7030; J7040; J7120; J7639; Q9967